=== PATIENT | male | born 1935 | race Caucasian/White ===

== ENCOUNTER → 2017-10-12 15:56 | Outpatient (CLI) | payer MEDICARE, OTHER, SELFPAY ==
[2017-10-12 17:29] LABS: Absolute Lymphocyte Count 1.19 X10^3/ul (0.83-4.51); Absolute Neutrophil Count 5.9 X10^3/uL (2.0-7.7); Basophil# 0.07 X10^3/uL; Basophil% 0.9 % (0-1); Eosinophil# 0.27 X10^3/uL; Eosinophils% 3.3 % (0-5); Hematocrit 47.5 % (40-54); Hemoglobin 15.6 g/dl (13.0-16.5); Lymphocyte # 1.19 X10^3/ul (4.0); Lymphocyte % 14.8 % (19-41); Mean Corp Hgb Conc 32.8 g/gl (32-36); Mean Corpuscular Hgb 31.3 pg (27.0-32.0); Mean Corpuscular Volume 95.4 fL (80-94); Mean Platelet Vol. 13.1 fl (6.2-12.0); Monocyte# 0.56 X10^3/uL; Monocyte% 6.9 % (0-10); Neutrophil # 5.94 X10^3/uL (2.7-7.7); Neutrophil % 73.7 % (47-70); Platelet Count 178 K/mm3 (150-450); RBC Distribution Width CV 15.2 % (11.6-14.6); Red Blood Count 4.98 M/mm3 (4.6-6.2); White Blood Count 8.1 K/mm3 (4.4-11.0)
[2017-10-12 17:44] LABS: POSITIVE COUNT NO; POSITIVE DIFFERENTIAL NO; POSITIVE MORPHOLOGY NO
[2017-10-12 18:04] LABS: BUN 24 mg/dL (7-18); Creatinine, Serum 0.95 mg/dL (0.70-1.30); Glucose 84 mg/dL (74-106)
[2017-10-12 18:05] LABS: ALB/GLOB Ratio 1.2 RATIO (0.9-2.4); AST(SGOT) 18 U/L (15-37); Alanine Aminotransfer ALT/SGPT 17 U/L (16-61); Albumin, Serum 3.8 g/dL (3.2-5.0); Alkaline Phosphatase 74 U/L (45-117); Anion Gap 7 (5-15); BUN/Creat Ratio 25.4 RATIO (10-20); Calcium,Total 8.6 mg/dL (8.5-10.1); Chloride 104 mmol/L (98-107); EST Glomerular Filtration Rate 81 mL/min (>60); Est Glom Filt Rate - Afr Amer 98 mL/min (>60); Globulin 3.2 g/dL (2.2-4.2); Potassium 4.2 mmol/L (3.5-5.1); Sodium Level 139 mmol/L (136-145); Thyroid Stim Hormone (TSH) 0.92 uIU/mL (0.358-3.74)
[2017-10-13 11:21] LABS: Vitamin D,25 Hydroxy 26.9 ng/mL (29.95-100.01)
== END ==
PROVIDERS: Family Provider Family Medicine Geriatric Medicine; PCP Family Medicine Geriatric Medicine; Visit Provider Family Medicine Geriatric Medicine
DX: I10 Essential (primary) hypertension (principal); E23.6 Other disorders of pituitary gland; E55.9 Vitamin D deficiency, unspecified
CPT/HCPCS: 36415; 80053; 82306; 84403; 84443; 85025

== ENCOUNTER → 2017-12-15 13:51 | Outpatient (CLI) | payer MEDICARE, OTHER, SELFPAY ==
--- NOTE | 2017-12-15 14:12 | RAD_ITS ---
STUDY: X-RAY CHEST REASON FOR EXAM: Male, 82 years old. Fever. TECHNIQUE: PA and lateral views of the chest. COMPARISON: Comparison is made with prior study dated March 27, 2017. FINDINGS: A right-sided dual-chamber pacemaker is seen. There is evidence of elevation of the right hemidiaphragm with the infiltration in the right middle lobe. The left lung is clear. There is no demonstrated pleural abnormality. Normal size heart. Normal mediastinum and agapito. Normal visualized pulmonary arteries. There is atherosclerotic tortuosity of the aortic arch and descending thoracic aorta. Normal visualized thoracic spine. Normal visualized ribs, clavicles, and shoulders. There is no demonstrated abnormality of the visualized soft tissue structures of the upper abdomen. RAD/Chest PA and Lateral IMPRESSION: Right middle lobe infiltrate. Electronically Signed: Xander Flynn MD at 14:43 EDT Tel [phone], Service support ,
--- NOTE | 2017-12-15 14:20 | RAD_ITS ---
STUDY: X-RAY - ABDOMEN/PELVIS REASON FOR EXAM: Male, 82 years old. Constipation. TECHNIQUE: Single AP view of the abdomen / pelvis. COMPARISON: None. FINDINGS: There is a moderate amount of colonic fecal material. There is a 1.6 cm x 1.3 cm calculus in the lower pole calyx of the left kidney. Normal soft tissue structures. Levoscoliosis of the lumbar spine. RAD/Abdomen Single View IMPRESSION: Moderate amount of fecal material is seen in the colon. 1.6 cm x 1.3 cm calculus in the lower pole calyx of the left kidney. Electronically Signed: Xander Flynn MD at 14:39 EDT Tel [phone], Service support ,
[2017-12-15 14:57] LABS: Absolute Lymphocyte Count 0.83 X10^3/ul (0.83-4.51); Absolute Neutrophil Count 16.9 X10^3/uL (2.0-7.7); Basophil# 0.02 X10^3/uL; Basophil% 0.1 % (0-1); Eosinophil# 0.06 X10^3/uL; Eosinophils% 0.3 % (0-5); Hematocrit 47.3 % (40-54); Hemoglobin 15.6 g/dl (13.0-16.5); Lymphocyte # 0.83 X10^3/ul (4.0); Lymphocyte % 4.6 % (19-41); Mean Corpuscular Hgb 31.1 pg (27.0-32.0); Mean Corpuscular Volume 94.4 fL (80-94); Mean Platelet Vol. 12.9 fl (6.2-12.0); Monocyte# 0.26 X10^3/uL; Monocyte% 1.4 % (0-10); Neutrophil # 16.92 X10^3/uL (2.7-7.7); Neutrophil % 93.4 % (47-70); POSITIVE COUNT NO; POSITIVE DIFFERENTIAL NO; POSITIVE MORPHOLOGY NO; Platelet Count 157 K/mm3 (150-450); RBC Distribution Width CV 13.7 % (11.6-14.6); RBC Distribution Width SD 46.9 fl (35.1-43.9); Red Blood Count 5.01 M/mm3 (4.6-6.2); White Blood Count 18.1 K/mm3 (4.4-11.0)
[2017-12-15 15:37] LABS: Anion Gap 7 (5-15); BUN 21 mg/dL (7-18); Calcium,Total 8.5 mg/dL (8.5-10.1); Chloride 107 mmol/L (98-107); Creatinine, Serum 1.05 mg/dL (0.70-1.30); EST Glomerular Filtration Rate 72 mL/min (>60); Est Glom Filt Rate - Afr Amer 87 mL/min (>60); Glucose 106 mg/dL (74-106); Potassium 4.2 mmol/L (3.5-5.1); Sodium Level 139 mmol/L (136-145)
== END ==
PROVIDERS: Family Provider Family Medicine Geriatric Medicine; PCP Family Medicine Geriatric Medicine; Visit Provider Family Medicine Geriatric Medicine
DX: R50.9 Fever, unspecified (principal); E86.0 Dehydration; K59.00 Constipation, unspecified
CPT/HCPCS: 36415; 71046; 74018; 80048; 85025; 87040; 87633

== ENCOUNTER → 2018-03-08 10:11 | Outpatient (CLI) | payer MEDICARE, OTHER, SELFPAY ==
[2018-03-08 10:51] LABS: Absolute Lymphocyte Count 1.36 X10^3/ul (0.83-4.51); Absolute Neutrophil Count 8.2 X10^3/uL (2.0-7.7); Basophil# 0.03 X10^3/uL; Basophil% 0.3 % (0-1); Eosinophil# 0.15 X10^3/uL; Eosinophils% 1.4 % (0-5); Hematocrit 47.5 % (40-54); Hemoglobin 15.6 g/dl (13.0-16.5); Lymphocyte # 1.36 X10^3/ul (4.0); Lymphocyte % 12.6 % (19-41); Mean Corp Hgb Conc 32.8 g/gl (32-36); Mean Corpuscular Volume 97.3 fL (80-94); Mean Platelet Vol. 12.6 fl (6.2-12.0); Monocyte% 8.3 % (0-10); Neutrophil % 75.9 % (47-70); Platelet Count 205 K/mm3 (150-450); RBC Distribution Width CV 16.9 % (11.6-14.6); RBC Distribution Width SD 59.2 fl (35.1-43.9); Red Blood Count 4.88 M/mm3 (4.6-6.2); White Blood Count 10.8 K/mm3 (4.4-11.0)
[2018-03-08 10:58] LABS: POSITIVE COUNT NO; POSITIVE DIFFERENTIAL NO; POSITIVE MORPHOLOGY NO
[2018-03-08 11:26] LABS: Anion Gap 6 (5-15); BUN 19 mg/dL (7-18); BUN/Creat Ratio 16.5 RATIO (10-20); Calcium,Total 9.3 mg/dL (8.5-10.1); Chloride 101 mmol/L (98-107); Creatinine, Serum 1.15 mg/dL (0.70-1.30); EST Glomerular Filtration Rate 65 mL/min (>60); Est Glom Filt Rate - Afr Amer 78 mL/min (>60); Glucose 112 mg/dL (74-106); Sodium Level 141 mmol/L (136-145); Thyroid Stim Hormone (TSH) 0.98 uIU/mL (0.358-3.74)
== END ==
PROVIDERS: Family Provider Family Medicine Geriatric Medicine; PCP Family Medicine Geriatric Medicine; Visit Provider Internal Medicine Cardiovascular Disease
DX: R53.83 Other fatigue (principal)
CPT/HCPCS: 36415; 80048; 84443; 85025

== ENCOUNTER → 2018-04-10 09:59 | Outpatient (CLI) | payer MEDICARE, OTHER, SELFPAY ==
[2018-04-10 12:32] LABS: Absolute Lymphocyte Count 1.12 X10^3/ul (0.83-4.51); Absolute Neutrophil Count 5.4 X10^3/uL (2.0-7.7); Basophil# 0.03 X10^3/uL; Basophil% 0.4 % (0-1); Eosinophil# 0.11 X10^3/uL; Eosinophils% 1.5 % (0-5); Hematocrit 46.6 % (40-54); Hemoglobin 15.5 g/dl (13.0-16.5); Lymphocyte # 1.12 X10^3/ul (4.0); Lymphocyte % 15.2 % (19-41); Mean Corp Hgb Conc 33.3 g/gl (32-36); Mean Corpuscular Hgb 32.5 pg (27.0-32.0); Mean Corpuscular Volume 97.7 fL (80-94); Mean Platelet Vol. 12.8 fl (6.2-12.0); Monocyte# 0.61 X10^3/uL; Monocyte% 8.3 % (0-10); Neutrophil # 5.43 X10^3/uL (2.7-7.7); Neutrophil % 73.7 % (47-70); Platelet Count 173 K/mm3 (150-450); RBC Distribution Width CV 15.4 % (11.6-14.6); RBC Distribution Width SD 54.5 fl (35.1-43.9); Red Blood Count 4.77 M/mm3 (4.6-6.2); White Blood Count 7.4 K/mm3 (4.4-11.0)
[2018-04-10 12:44] LABS: POSITIVE COUNT NO; POSITIVE DIFFERENTIAL NO; POSITIVE MORPHOLOGY NO
[2018-04-10 12:54] LABS: ALB/GLOB Ratio 1.2 RATIO (0.9-2.4); AST(SGOT) 19 U/L (15-37); Alanine Aminotransfer ALT/SGPT 25 U/L (16-61); Albumin, Serum 3.7 g/dL (3.2-5.0); Alkaline Phosphatase 57 U/L (45-117); Anion Gap 6 (5-15); BUN 23 mg/dL (7-18); BUN/Creat Ratio 18.9 RATIO (10-20); Chloride 103 mmol/L (98-107); Creatinine, Serum 1.22 mg/dL (0.70-1.30); EST Glomerular Filtration Rate 60 mL/min (>60); Est Glom Filt Rate - Afr Amer 73 mL/min (>60); Globulin 3.2 g/dL (2.2-4.2); Glucose 114 mg/dL (74-106); Potassium 4.1 mmol/L (3.5-5.1); Protein, Total 6.9 g/dL (6.4-8.2); Sodium Level 139 mmol/L (136-145)
[2018-04-11 08:40] LABS: Vitamin D,25 Hydroxy 35.1 ng/mL (29.95-100.01)
== END ==
PROVIDERS: Family Provider Family Medicine Geriatric Medicine; PCP Family Medicine Geriatric Medicine; Visit Provider Family Medicine Geriatric Medicine
DX: E23.6 Other disorders of pituitary gland (principal); I10 Essential (primary) hypertension; E55.9 Vitamin D deficiency, unspecified
CPT/HCPCS: 36415; 80053; 82306; 84403; 84443; 85025

== ENCOUNTER → 2018-04-19 07:02 | Outpatient (CLI) | payer MEDICARE, OTHER, SELFPAY ==
--- NOTE | 2018-04-19 08:08 | ECHOCSONC_ITS ---
Reason For Study: SOB Procedure This was a 2D Doppler, Color Flow transthoracic echocardiogram. Exam performed in department. Left Ventricle Normal LV size. The estimated ejection fraction is 20 %. Severe segmental systolic dysfunction (see wall motion). Stage 1 diastolic dysfunction. There are regional wall motion abnormalities as specified. Anterio-Basal: Hypokinetic. Lateral-Basal: Normal. Posterior-Basal: Hypokinetic. [place] : Dyskinetic. Mid-Inferior: Akinetic. Basal inferoseptal: Akinetic. Mid-Anterior : Akinetic. Right Ventricle Normal RV size. ICD or pacer leads identified within the right ventricle. Normal systolic function. Atria Normal left atrium. Normal right atrium. Mitral Valve Normal mitral valve. Mild (1+) eccentric mitral valve insufficiency. Tricuspid Valve Normal tricuspid valve. Mild (1+) tricuspid valve insufficiency. Pulmonary artery systolic pressure is 31 mmHg. Aortic Valve Trisinus/trileaflet aortic valve. Mild diffuse aortic valve thickening. Mild (1+) eccentric aortic valve insufficiency. Pulmonic Valve Normal pulmonic valve. Great Vessels Normal aortic root. The pulmonary artery is normal size. Normal inferior vena cava. Pericardium/Pleural No pericardial effusion. Medication 22 gauge I.V. with prn adaptor inserted into right arm. Diluted definity 4ml given slow IV push to enhance endocardial definition. MMode/2D Measurements & Calculations LVIDd: 4.9 cm IVSd: 0.95 cm Ao root diam: 3.3 cm LVIDs: 4.5 cm LVPWd: 0.87 cm LA dimension: 3.6 cm RVDd: 3.2 cm FS: 8.8 % LAV(MOD-bp): 45.8 ml LVAd ap4: 36.2 cm2 SV(MOD-sp4): 25.9 ml LAV(MOD-bp) Indexed: 23.3 ml/m2 EDV(MOD-sp4): 119.7 ml LAV(MOD-sp2): 43.1 ml EDV(sp4-el): 121.6 ml LAV(MOD-sp4): 39.3 ml LVAs ap4: 31.4 cm2 ESV(MOD-sp4): 93.8 ml ESV(sp4-el): 99.2 ml EF(MOD-sp4): 21.6 % EF(sp4-el): 18.5 % SV(sp4-el): 22.4 ml LA A4 area: 15.1 cm2 RA A4 area: 9.8 cm2 Time Measurements MV dec time: 0.20 sec Doppler Measurements & Calculations MV E max eben: 31.9 cm/sec Lat Peak E' Eben: 8.1 cm/sec Med Peak E' Eben: 3.6 cm/sec MV A max eben: 94.7 cm/sec E/E' lat: 4.0 E/E' med: 8.8 MV E/A: 0.34 Ao V2 max: 98.1 cm/sec LV V1 max: 106.4 cm/sec PA V2 max: 112.8 cm/sec Ao max P.9 mmHg LV V1 max P.5 mmHg TR max eben: 264.5 cm/sec TR max P.0 mmHg Interpretation Summary Normal LV size. The estimated ejection fraction is 20 %. Severe segmental systolic dysfunction (see wall motion). Stage 1 diastolic dysfunction. Contrast injection was performed. The study was technically difficult. Compared to prior study, there is no significant change. Ordering Physician: Jacques Pena Referring Physician: Jacques Pena Chi Performed By: Maday Dunn RDCS
--- NOTE | 2018-04-20 12:19 | PFT ---
INTRODUCTION: The patient is an 83-year-old male that presents for pulmonary function testing secondary to a diagnosis of shortness of breath. Respiratory therapy reports good patient effort. Bronchodilators were used during testing. INTERPRETATION: Forced expiration spirometry demonstrates no evidence of a large airways obstructive ventilatory defect. There was no significant response to aerosolized bronchodilators. Spirograms are of good quality and plateau normally. The respiratory flow volume loop appears normal. Body plethysmography was performed and reveals lung volumes to be within normal limits. Diffusing capacity by single breath CO is within normal limits at 99% of predicted. IMPRESSION: These pulmonary function studies are grossly within normal limits. There are no previous pulmonary function studies available for comparison.
== END ==
PROVIDERS: Family Provider Family Medicine Geriatric Medicine; PCP Family Medicine Geriatric Medicine; Visit Provider Family Medicine Geriatric Medicine
DX: R06.02 Shortness of breath (principal)
CPT/HCPCS: 0399T; 93306; 94060; 94726; 94729; Q9957; A4216; C8929

== ENCOUNTER 2018-04-20 14:06 | Inpatient (IN) | payer MEDICARE, OTHER, SELFPAY ==
[2018-04-20] VITALS (13 sets, daily range): BP systolic 127–164; BP diastolic 69–88; PULSE 60–80; RESP 16–27; TEMP 36.5–37.1; O2SAT 94–100; BMI 24.8; BMI 25.7
--- NOTE | 2018-04-20 14:19 | RAD_ITS ---
STUDY: X-RAY CHEST REASON FOR EXAM: Male, 83 years old. LEFT UPPER CHEST PAIN TECHNIQUE: Single AP portable view of the chest. COMPARISON: December 15, 2017 FINDINGS: There is stable elevation of the right hemidiaphragm. There is a new small left pleural effusion. Normal size heart. Normal mediastinum and agapito. Normal visualized pulmonary arteries. Normal visualized aortic arch and descending thoracic aorta. Normal visualized thoracic spine. Normal visualized ribs, clavicles, and shoulders. There is no demonstrated abnormality of the visualized soft tissue structures of the upper abdomen. RAD/Chest 1 View (Portable) IMPRESSION: There is a new small left pleural effusion. Electronically Signed: Tereza Quiles MD at 14:58 EDT , Service support ,
--- NOTE | 2018-04-20 14:19 | EKG12_ITS ---
Test Reason : CP Blood Pressure : / mmHG Vent. Rate : 074 BPM Atrial Rate : 074 BPM P-R Int : 154 ms QRS Dur : 114 ms QT Int : 420 ms P-R-T Axes : 012 -41 107 degrees QTc Int : 466 ms Normal sinus rhythm Left axis deviation Moderate voltage criteria for LVH, may be normal variant Cannot rule out Septal infarct , age undetermined Possible lateral infarct, age undetermined Abnormal ECG Confirmed by JENNIFER ROCHA, JESSE ([id number]), assignment desk editor LAVINIA WEST ([id number]) on 04/23/2018 3:10:44 PM Referred By: Confirmed By:JESSE RODRIGUEZ MD
[2018-04-20 14:32] LABS: Absolute Lymphocyte Count 1.25 X10^3/ul (0.83-4.51); Absolute Neutrophil Count 6.8 X10^3/uL (2.0-7.7); Basophil# 0.04 X10^3/uL; Basophil% 0.5 % (0-1); Eosinophil# 0.07 X10^3/uL; Eosinophils% 0.8 % (0-5); Hematocrit 45.5 % (40-54); Hemoglobin 14.9 g/dl (13.0-16.5); Lymphocyte # 1.25 X10^3/ul (4.0); Lymphocyte % 14.3 % (19-41); Mean Corp Hgb Conc 32.7 g/gl (32-36); Mean Corpuscular Hgb 31.4 pg (27.0-32.0); Mean Platelet Vol. 13.2 fl (6.2-12.0); Monocyte# 0.58 X10^3/uL; Monocyte% 6.6 % (0-10); Neutrophil % 77.5 % (47-70); Platelet Count 192 K/mm3 (150-450); RBC Distribution Width CV 14.2 % (11.6-14.6); Red Blood Count 4.74 M/mm3 (4.6-6.2); White Blood Count 8.8 K/mm3 (4.4-11.0)
--- NOTE | 2018-04-20 14:36 | ED.DCSUM_ITS ---
- ER Visit Summary Date of Service: 04/20/18 Chief Complaint: Chest pain History of Present Illness: The patient is a 83 M presents to the emergency department with rather significant chest pain. The patient has a long-standing history of coronary vascular disease. He follows with Dr. Lawrence. He does have a defibrillator in place. He has 5 stents. He states over the past 2 weeks, he has been having exertional chest pain. He states that today, he was lifting a table in his barn. He states about 30 minutes later, he began have a crushing pain across his left chest into his left arm. He felt short of breath. He took one nitro with little relief. He states the pain comes in waves but is never fully relieved. He denies any fevers or chills. He does admit to some nausea. Physical Examination: Vital signs reviewed General: Well-nourished, well-developed Head: Normocephalic, atraumatic Eyes: Pupils equal and reactive, extraocular muscles intact Neck, supple, no lymphadenopathy Heart: Regular rate and rhythm Respiratory: No distress, clear bilaterally Abdomen: Soft, nontender, nondistended, no peritoneal signs Back: Nontender Extremities: Nontender, no edema, no cords Skin: Normal color no rash Neuro: Alert and oriented, no focal or lateralizing deficits Test Results: [] Emergency Department Course and Treatment: The patient presents with chest pain that is concerning for acute coronary syndrome. EKG was obtained which did not show any acute ischemic change compared to prior. Patient was given 2 sublingual nitro and had total resolution of his pain. His repeat EKG shows no progression. The patient did have a 6 beat run of ventricular tachycardia that was nonsustained. His cardiac enzymes are indeterminate, but elevated. I do suspect that the patient likely had an STEMI. I did discuss the patient with Dr. Lawrence given his age and significant cardiac risk factors along with his story. He was treated with therapeutic Lovenox. He will be admitted to the PCU for likely cardiac intervention. Treatment Plan: [] Disposition: Admission Impression: 1. Chest pain 2. Acute coronary syndrome This note was generated with [employer] dictation software. It may contain incorrect words, spelling, and punctuation that were not noted in review of the chart prior to signing ED Disposition - Plan for ED Patient: Chief Complaint: Chest Pain Referrals: Jacques Pena Chi, MD [Primary Care Provider] -
[2018-04-20 14:38] LABS: POSITIVE COUNT NO; POSITIVE DIFFERENTIAL NO; POSITIVE MORPHOLOGY NO
[2018-04-20 14:55] LABS: BUN 22 mg/dL (7-18); Creatinine, Serum 1.18 mg/dL (0.70-1.30); Estimated Creatinine Clearance 49.84 ml/min; Glucose 130 mg/dL (74-106)
[2018-04-20 14:56] LABS: Anion Gap 9 (5-15); BUN/Creat Ratio 18.6 RATIO (10-20); Chloride 105 mmol/L (98-107); EST Glomerular Filtration Rate 63 mL/min (>60); Est Glom Filt Rate - Afr Amer 76 mL/min (>60); Potassium 4.1 mmol/L (3.5-5.1); Sodium Level 142 mmol/L (136-145)
[2018-04-20] MEDS: Enoxaparin 80 MG/0.8 ML Syringe SC (15:18)
[2018-04-20] MEDS: Aspirin 81 MG TAB.CHEW 324 MG PO (15:18)
--- NOTE | 2018-04-20 15:32 | CM.ED ---
Social Work Note Face to face with pt and his , Mary. Introduced self and role at [facility]. The pt is A&Ox4. Reports to live with his in a one-story home with 2 [address]ASSID[address] and handrails. No DME used at baseline. Does have a lift chair for the basement that he uses when he has been standing and working for hours at a time. Does not anticipate any DME needs at discharge. Confirm that his PCP is Dr. Pena. He also sees Dr. Crum, Chiropractor. His preferred pharmacy is [facility] in [place]. Claims to have advanced directives and identifies his , Mary, as the HCPOA. Mary states she will bring advanced directives in if she remembers. No further needs identified at this time, and pt and spouse made aware that RN CM is available on unit if needed. Plan: Home Amairani Gómez, GENERAL INTERNIST, CONFIGURATION MANAGEMENT ANALYST
--- NOTE | 2018-04-20 16:25 | NURSING ---
PCU CP, [facility]
--- NOTE | 2018-04-20 16:31 | PCM.HP.STD ---
Problem List (1) DDD (degenerative disc disease), lumbar Status: Chronic (2) Segmental and somatic dysfunction of pelvic region Status: Chronic (3) Segmental and somatic dysfunction of thoracic region Status: Chronic (4) Segmental and somatic dysfunction of lumbar region Status: Chronic (5) History of electrophysiologic study Status: Chronic Comment: 09/11/2002 @ [facility] per Dr. Holt; and 05/19/[address] Madrigal [facility] (6) History of left heart catheterization Status: Chronic Comment: 03/05/2002;08/20/2002; 04/2004; May 2010; 11/18/2014 (7) Old myocardial infarction Status: Chronic (8) Stented coronary artery Status: Chronic Comment: Cutting balloon angiplasty of posterior ventricular branch of RCA and stenting of LAD 03/05/2002 @ [facility] per Dr. Murillo. DOUGLAS X 2 to proximal, and Mid to distal RCA 11/18/[address] Le @ [facility] (9) Chronic systolic (congestive) heart failure Status: Chronic (10) Atherosclerotic heart disease of [place] coronary artery with other forms of angina pectoris Status: Chronic Comment: Cutting balloon angiplasty of posterior ventricular branch of RCA and stenting of LAD 03/05/2002 @ [facility] per Dr. Murillo. DOUGLAS X 2 to proximal, and Mid to distal RCA 11/18/[address] Le @ [facility] (11) Nonsustained ventricular tachycardia Status: Chronic (12) Palpitations Status: Chronic (13) Polycythemia Status: Chronic (14) Chest pain Status: Acute (15) AICD (automatic cardioverter/defibrillator) present Status: Chronic Comment: Implanted 05/17/2010 (16) GERD (gastroesophageal reflux disease) Status: Chronic (17) Hiatal hernia Status: Chronic (18) Cardiomyopathy, ischemic Status: Chronic (19) HLD (hyperlipidemia) Status: Chronic (20) HTN (hypertension) Status: Chronic (21) Carotid artery disease Status: Chronic History of Present Illness Date of Admission: 04/20/18 Chief Complaint: Chest pain. The patient is a 83 year old M who presents to the emergency room due to chest pain. Patient states he was moving tables when he developed left-sided chest pain which radiated to the left arm. He states he rested, hoping pain would resolve however pain worsened. He describes associated dizziness/lightheadedness, diaphoresis and shortness of breath. Patient also notes his left arm became numb with the pain. This has since resolved. Chest pain continued until arriving in the emergency room and receiving nitro. Patient states pain improved and is now beginning to return. Patient states he has had increased dyspnea on exertion with associated chest discomfort for a few months now. His pain has not been as severe as episode today. He states he is normally active without symptoms prior to the last few months. Patient follows with Dr. Lawrence. He saw his primary care physician for ongoing dyspnea on exertion who ordered an echocardiogram and pulmonary function test which were completed yesterday. Echocardiogram demonstrated an ejection fraction of 20%, stage I diastolic dysfunction, severe segmental systolic dysfunction. Compared to prior study there was no significant change. He has a past medical history of CAD status post stents, ischemic cardiomyopathy, chronic systolic CHF, status post AICD, hypertension, hyperlipidemia, carotid artery disease, hiatal hernia, GERD, degenerative disc disease. Past Medical History Past Medical History (Chronic Problems): Chronic Problems (Last Reviewed 04/12/18 @ 11:49 by Jennifer Koehler) DDD (degenerative disc disease), lumbar (Chronic) Segmental and somatic dysfunction of pelvic region (Chronic) Segmental and somatic dysfunction of thoracic region (Chronic) Segmental and somatic dysfunction of lumbar region (Chronic) History of electrophysiologic study (Chronic) 09/11/2002 @ [facility] per Dr. Holt; and 05/19/[address] Madrigal [facility] History of left heart catheterization (Chronic) 03/05/2002;08/20/2002; 04/2004; May 2010; 11/18/2014 Old myocardial infarction (Chronic) Stented coronary artery (Chronic) Cutting balloon angiplasty of posterior ventricular branch of RCA and stenting of LAD 03/05/2002 @ [facility] per Dr. Murillo. DOUGLAS X 2 to proximal, and Mid to distal RCA 11/18/[address] Le @ [facility] Chronic systolic (congestive) heart failure (Chronic) Atherosclerotic heart disease of [place] coronary artery with other forms of angina pectoris (Chronic) Cutting balloon angiplasty of posterior ventricular branch of RCA and stenting of LAD 03/05/2002 @ [facility] per Dr. Murillo. DOUGLAS X 2 to proximal, and Mid to distal RCA 11/18/[address] Le @ [facility] Nonsustained ventricular tachycardia (Chronic) Palpitations (Chronic) Polycythemia (Chronic) AICD (automatic cardioverter/defibrillator) present (Chronic) Implanted 05/17/2010 GERD (gastroesophageal reflux disease) (Chronic) Hiatal hernia (Chronic) Cardiomyopathy, ischemic (Chronic) HLD (hyperlipidemia) (Chronic) HTN (hypertension) (Chronic) Carotid artery disease (Chronic) Medical History: Medical History (Last Reviewed 04/12/18 @ 11:49 by Jennifer Koehler) DDD (degenerative disc disease), lumbar (Chronic) M51.36 Old myocardial infarction (Chronic) I25.2 Chronic systolic (congestive) heart failure (Chronic) I50.22 Atherosclerotic heart disease of [place] coronary artery with other forms of angina pectoris (Chronic) I25.118 Cutting balloon angiplasty of posterior ventricular branch of RCA and stenting of LAD 03/05/2002 @ [facility] per Dr. Murillo. DOUGLAS X 2 to proximal, and Mid to distal RCA 11/18/[address] Le @ [facility] Nonsustained ventricular tachycardia (Chronic) I47.2 Palpitations (Chronic) R00.2 Polycythemia (Chronic) D75.1 Chest pain (Chronic) R07.9 GERD (gastroesophageal reflux disease) (Chronic) K21.9 Hiatal hernia (Chronic) K44.9 Cardiomyopathy, ischemic (Chronic) I25.5 HLD (hyperlipidemia) (Chronic) E78.5 HTN (hypertension) (Chronic) I10 Carotid artery disease (Chronic) I77.9 Allergies hydrochlorothiazide Allergy (Severe, Verified 03/08/18 09:17) Severe itching rash ranolazine [From Ranexa] Adverse Reaction (Severe, Verified 03/08/18 09:17) Rash omeprazole Adverse Reaction (Verified 03/08/18 09:17) Unknown Phenothiazines Adverse Reaction (Verified 03/08/18 09:17) Unknown PHENEGRANZOLE Adverse Reaction (Uncoded 03/27/17 04:22) Unknown Home Medications: Ambulatory Orders Medication Instructions Recorded Aspirin E.C. [Ecotrin] 81 mg PO DAILY@0800 07/11/13 Folic Acid/Vit Bcomp,C 400 mcg PO DAILY 07/11/13 [E-Dcujjlb-Dqv C Time Rel Tab] Multivitamins,Ther W-Minerals 1 tab PO DAILY 11/03/14 [Multivitamin With Minerals] Pantoprazole Sodium [Protonix] 40 mg PO DAILY 10/29/16 Fluticasone Propionate [Flovent 50 mcg IH BID 03/27/17 Diskus] Sotalol Hydrochloride [Betapace 80 mg PO BID #60 tab 03/29/17 (Beta Dmitry)] nitroglycerin 0.4 mg sublingual 0.4 mg SUBLINGUAL Q5-15M PRN 08/18/17 tablet clopidogrel 75 mg tablet 75 mg PO DAILY #90 tab 10/12/17 losartan 25 mg tablet 25 mg PO DAILY #90 tab 12/01/17 Surgical History: Surgical History (Last Reviewed 04/20/18 @ 16:39 by CHELSI Mueller) Stented coronary artery (Chronic) Z95.5 Cutting balloon angiplasty of posterior ventricular branch of RCA and stenting of LAD 03/05/2002 @ [facility] per Dr. Murillo. DOUGLAS X 2 to proximal, and Mid to distal RCA 11/18/[address] Le @ [facility] AICD (automatic cardioverter/defibrillator) present (Chronic) Z95.810 Implanted 05/17/2010 Surgical History: angioplasty, cataract, herniorrhaphy, TURP, - - AICD placement Lives: Spouse/ Significant Other Smoking Status: Never smoker Alcohol: None Drugs: None - *Family History Maternal Family History: Family History (Last Reviewed 04/20/18 @ 16:39 by CHELSI Mueller) Father CAD (coronary artery disease) Myocardial infarction Sudden cardiac Mother Diabetes History Items: Heart Disease Paternal Family History: Family History (Last Reviewed 04/20/18 @ 16:39 by CHELSI Mueller) Father CAD (coronary artery disease) Myocardial infarction Sudden cardiac Mother Diabetes History Items: Heart Disease Review of Systems Constitutional: Denies: Chills, Fever, Weight Change HEENT: Denies: Head Aches, Sinus Congestion, Sinus Drainage Cardiovascular: Reports: Chest Pain, Claudication, Light Headedness. Denies: Edema, Palpitations, Syncope Respiratory: Reports: Shortness of breath upon exertion. Denies: Cough, Shortness of breath at rest, Sputum production Gastrointestinal: Denies: Abdominal Pain, Nausea, Vomiting Genitourinary: Denies: Dysuria Musculoskeletal: Denies: Joint Pain, Joint Tenderness Skin: Denies: Rash, Wounds Neurological: Denies: Numbness, Tingling, Focal weakness Psychiatric: Denies: Anxiety, Depression, Homicidal Ideations, Suicidal Ideations Hematologic/ Lymphatic: Denies: Easy Bruising, Easy Bleeding VTE Information - Inpt Only VTE Present on Admission: No VTE Mechan Device Prophylaxis: None VTE Pharm Prophylaxis ordered?: Yes - Physical Exam General: Alert, Oriented x3, Cooperative HEENT: Atraumatic, PERRLA, EOMI, Normocephalic Neck: Supple, No JVD, Negative Carotid Bruits Lungs: Clear to auscultation, Normal air movement, - - Right chest AICD Cardiovascular: Regular rate, Regular Rhythm, Normal S1, Normal S2, No murmurs Abdomen: Bowel Sounds Present, Soft, Non Tender, Non-Distended Extremities: No clubbing, No cyanosis, No edema, Capillary Refill Less than 3 Seconds Skin: No rashes, No breakdown Musculoskeletal: No Tenderness to Palpation of Joints or Extremities Neurological: Cranial nerves II-XII grossly intact Psych/Mental Status: Normal Affect, Appropriate Vital Signs Temp Pulse Resp BP Pulse Ox 97.7 F L 66 20 H 127/69 H 96 04/20/18 14:07 04/20/18 15:17 04/20/18 15:17 04/20/18 15:17 04/20/18 15:17 Oxygen Flow Rate (L/min) 2 Oxygen Delivery Method Room Air Weight: 173 lb Body Mass Index (BMI) 24.8 Laboratory Tests Past 24 Hrs 04/20/18 04/20/18 14:10 14:10 WBC 8.8 RBC 4.74 Hgb 14.9 Hct 45.5 MCV 96.0 H MCH 31.4 MCHC 32.7 RDW 14.2 RDW Differential 50.0 H Plt Count 192 MPV 13.2 H Immature Gran % (Auto) 0.300 Neut % (Auto) 77.5 H Lymph % (Auto) 14.3 L [place] % (Auto) 6.6 Eos % (Auto) 0.8 Baso % (Auto) 0.5 Absolute Neuts (auto) 6.8 Absolute Lymphs (auto) 1.25 Total Counted Not Reportable Sodium 142 Potassium 4.1 Chloride 105 Carbon Dioxide 28.0 Anion Gap 9 BUN 22 H Creatinine 1.18 Estim Creat Clear Calc 49.84 Est GFR (MDRD) Af Amer 76 Est GFR (MDRD) Non-Af 63 BUN/Creatinine Ratio 18.6 Glucose 130 H Calcium 9.0 Troponin I 0.417 H Assessment/Plan All Active Problems (Last Reviewed 04/12/18 @ 11:49 by Jennifer Koehler) Chest pain (Acute) ENTERITIS DUE SALMONELLA (Resolved) Pneumonia, community acquired (Resolved) 1. Unstable angina with indeterminate troponin, suspect NSTEMI/ACS-initial troponin 0.41. EKG without acute changes. Cardiology consulted. Anticipate cardiac catheterization. Trend enzymes. Repeat EKG in a.m. and with new onset chest pain. Nitro drip initiated in ER. Continue therapeutic Lovenox. Patient given aspirin 324 mg p.o. ?1 in ER. 2. Ventricular tachycardia-6 beat run. Monitor telemetry. Check magnesium. 3. CAD status post stent-continue aspirin, Plavix. Cardiology following as noted above. 4. Chronic systolic CHF-echocardiogram completed yesterday showed an EF of 20%, stage I diastolic dysfunction, no significant change compared to prior study. Continue losartan, sotalol regimen. No evidence of acute CHF exacerbation. 5. Ischemic cardiomyopathy status post AICD 6. Hypertension-stable, continue home regimen of losartan, sotalol. 7. Hyperlipidemia-not on statin. Check fasting lipid panel in a.m. 8. Carotid artery disease-continue aspirin, Plavix. 9. GERD- continue PPI. 10. Hiatal hernia 11. DDD- Tylenol PRN for pain. DVT prophylaxis-therapeutic Lovenox subcu. This patient was seen by CHELSI Mueller under the supervision of Dr. Colunga.
--- NOTE | 2018-04-20 16:39 | HP.PCM_ITS ---
Problem List (1) DDD (degenerative disc disease), lumbar Status: Chronic (2) Segmental and somatic dysfunction of pelvic region Status: Chronic (3) Segmental and somatic dysfunction of thoracic region Status: Chronic (4) Segmental and somatic dysfunction of lumbar region Status: Chronic (5) History of electrophysiologic study Status: Chronic Comment: 09/11/2002 @ [facility] per Dr. Holt; and 05/19/[address] Madrigal [facility] (6) History of left heart catheterization Status: Chronic Comment: 03/05/2002;08/20/2002; 04/2004; May 2010; 11/18/2014 (7) Old myocardial infarction Status: Chronic (8) Stented coronary artery Status: Chronic Comment: Cutting balloon angiplasty of posterior ventricular branch of RCA and stenting of LAD 03/05/2002 @ [facility] per Dr. Murillo. DOUGLAS X 2 to proximal, and Mid to distal RCA 11/18/[address] Le @ [facility] (9) Chronic systolic (congestive) heart failure Status: Chronic (10) Atherosclerotic heart disease of [place] coronary artery with other forms of angina pectoris Status: Chronic Comment: Cutting balloon angiplasty of posterior ventricular branch of RCA and stenting of LAD 03/05/2002 @ [facility] per Dr. Murillo. DOUGLAS X 2 to proximal, and Mid to distal RCA 11/18/[address] Le @ [facility] (11) Nonsustained ventricular tachycardia Status: Chronic (12) Palpitations Status: Chronic (13) Polycythemia Status: Chronic (14) Chest pain Status: Acute (15) AICD (automatic cardioverter/defibrillator) present Status: Chronic Comment: Implanted 05/17/2010 (16) GERD (gastroesophageal reflux disease) Status: Chronic (17) Hiatal hernia Status: Chronic (18) Cardiomyopathy, ischemic Status: Chronic (19) HLD (hyperlipidemia) Status: Chronic (20) HTN (hypertension) Status: Chronic (21) Carotid artery disease Status: Chronic History of Present Illness Date of Admission: 04/20/18 Chief Complaint: Chest pain. The patient is a 83 year old M who presents to the emergency room due to chest pain. Patient states he was moving tables when he developed left-sided chest pain which radiated to the left arm. He states he rested, hoping pain would resolve however pain worsened. He describes associated dizziness/lightheadedness , diaphoresis and shortness of breath. Patient also notes his left arm became numb with the pain. This has since resolved. Chest pain continued until arriving in the emergency room and receiving nitro. Patient states pain improved and is now beginning to return. Patient states he has had increased dyspnea on exertion with associated chest discomfort for a few months now. His pain has not been as severe as episode today. He states he is normally active without symptoms prior to the last few months. Patient follows with Dr. Lawrence. He saw his primary care physician for ongoing dyspnea on exertion who ordered an echocardiogram and pulmonary function test which were completed yesterday. Echocardiogram demonstrated an ejection fraction of 20%, stage I diastolic dysfunction, severe segmental systolic dysfunction. Compared to prior study there was no significant change. He has a past medical history of CAD status post stents, ischemic cardiomyopathy, chronic systolic CHF, status post AICD, hypertension, hyperlipidemia, carotid artery disease, hiatal hernia, GERD, degenerative disc disease. Past Medical History Past Medical History (Chronic Problems): Chronic Problems (Last Reviewed 04/12/18 @ 11:49 by Jennifer Koehler) DDD (degenerative disc disease), lumbar (Chronic) Segmental and somatic dysfunction of pelvic region (Chronic) Segmental and somatic dysfunction of thoracic region (Chronic) Segmental and somatic dysfunction of lumbar region (Chronic) History of electrophysiologic study (Chronic) 09/11/2002 @ [facility] per Dr. Holt; and 05/19/[address] Madrigal [facility] History of left heart catheterization (Chronic) 03/05/2002;08/20/2002; 04/2004; May 2010; 11/18/2014 Old myocardial infarction (Chronic) Stented coronary artery (Chronic) Cutting balloon angiplasty of posterior ventricular branch of RCA and stenting of LAD 03/05/2002 @ [facility] per Dr. Murillo. DOUGLAS X 2 to proximal, and Mid to distal RCA 11/18/[address] Le @ [facility] Chronic systolic (congestive) heart failure (Chronic) Atherosclerotic heart disease of [place] coronary artery with other forms of angina pectoris (Chronic) Cutting balloon angiplasty of posterior ventricular branch of RCA and stenting of LAD 03/05/2002 @ [facility] per Dr. Murillo. DOUGLAS X 2 to proximal, and Mid to distal RCA 11/18/[address] Le @ [facility] Nonsustained ventricular tachycardia (Chronic) Palpitations (Chronic) Polycythemia (Chronic) AICD (automatic cardioverter/defibrillator) present (Chronic) Implanted 05/17/2010 GERD (gastroesophageal reflux disease) (Chronic) Hiatal hernia (Chronic) Cardiomyopathy, ischemic (Chronic) HLD (hyperlipidemia) (Chronic) HTN (hypertension) (Chronic) Carotid artery disease (Chronic) Medical History: Medical History (Last Reviewed 04/12/18 @ 11:49 by Jennifer Koehler) DDD (degenerative disc disease), lumbar (Chronic) M51.36 Old myocardial infarction (Chronic) I25.2 Chronic systolic (congestive) heart failure (Chronic) I50.22 Atherosclerotic heart disease of [place] coronary artery with other forms of angina pectoris (Chronic) I25.118 Cutting balloon angiplasty of posterior ventricular branch of RCA and stenting of LAD 03/05/2002 @ [facility] per Dr. Murillo. DOUGLAS X 2 to proximal, and Mid to distal RCA 11/18/[address] Le @ [facility] Nonsustained ventricular tachycardia (Chronic) I47.2 Palpitations (Chronic) R00.2 Polycythemia (Chronic) D75.1 Chest pain (Chronic) R07.9 GERD (gastroesophageal reflux disease) (Chronic) K21.9 Hiatal hernia (Chronic) K44.9 Cardiomyopathy, ischemic (Chronic) I25.5 HLD (hyperlipidemia) (Chronic) E78.5 HTN (hypertension) (Chronic) I10 Carotid artery disease (Chronic) I77.9 Allergies hydrochlorothiazide Allergy (Severe, Verified 03/08/18 09:17) Severe itching rash ranolazine [From Ranexa] Adverse Reaction (Severe, Verified 03/08/18 09:17) Rash omeprazole Adverse Reaction (Verified 03/08/18 09:17) Unknown Phenothiazines Adverse Reaction (Verified 03/08/18 09:17) Unknown PHENEGRANZOLE Adverse Reaction (Uncoded 03/27/17 04:22) Unknown Home Medications: Ambulatory Orders Medication Instructions Recorded Aspirin E.C. [Ecotrin] 81 mg PO DAILY@0800 07/11/13 Folic Acid/Vit Bcomp,C 400 mcg PO DAILY 07/11/13 [F-Byixiwv-Asv C Time Rel Tab] Multivitamins,Ther W-Minerals 1 tab PO DAILY 11/03/14 [Multivitamin With Minerals] Pantoprazole Sodium [Protonix] 40 mg PO DAILY 10/29/16 Fluticasone Propionate [Flovent 50 mcg IH BID 03/27/17 Diskus] Sotalol Hydrochloride [Betapace 80 mg PO BID #60 tab 03/29/17 (Beta Dmitry)] nitroglycerin 0.4 mg sublingual 0.4 mg SUBLINGUAL Q5-15M PRN 08/18/17 tablet clopidogrel 75 mg tablet 75 mg PO DAILY #90 tab 10/12/17 losartan 25 mg tablet 25 mg PO DAILY #90 tab 12/01/17 Surgical History: Surgical History (Last Reviewed 04/20/18 @ 16:39 by CHELSI Mueller) Stented coronary artery (Chronic) Z95.5 Cutting balloon angiplasty of posterior ventricular branch of RCA and stenting of LAD 03/05/2002 @ [facility] per Dr. Murillo. DOUGLAS X 2 to proximal, and Mid to distal RCA 11/18/[address] Le @ [facility] AICD (automatic cardioverter/defibrillator) present (Chronic) Z95.810 Implanted 05/17/2010 Surgical History: angioplasty, cataract, herniorrhaphy, TURP, - - AICD placement Lives: Spouse/ Significant Other Smoking Status: Never smoker Alcohol: None Drugs: None - *Family History Maternal Family History: Family History (Last Reviewed 04/20/18 @ 16:39 by CHELSI Mueller) Father CAD (coronary artery disease) Myocardial infarction Sudden cardiac Mother Diabetes History Items: Heart Disease Paternal Family History: Family History (Last Reviewed 04/20/18 @ 16:39 by CHELSI Mueller) Father CAD (coronary artery disease) Myocardial infarction Sudden cardiac Mother Diabetes History Items: Heart Disease Review of Systems Constitutional: Denies: Chills, Fever, Weight Change HEENT: Denies: Head Aches, Sinus Congestion, Sinus Drainage Cardiovascular: Reports: Chest Pain, Claudication, Light Headedness. Denies: Edema, Palpitations, Syncope Respiratory: Reports: Shortness of breath upon exertion. Denies: Cough, Shortness of breath at rest, Sputum production Gastrointestinal: Denies: Abdominal Pain, Nausea, Vomiting Genitourinary: Denies: Dysuria Musculoskeletal: Denies: Joint Pain, Joint Tenderness Skin: Denies: Rash, Wounds Neurological: Denies: Numbness, Tingling, Focal weakness Psychiatric: Denies: Anxiety, Depression, Homicidal Ideations, Suicidal Ideations Hematologic/ Lymphatic: Denies: Easy Bruising, Easy Bleeding VTE Information - Inpt Only VTE Present on Admission: No VTE Mechan Device Prophylaxis: None VTE Pharm Prophylaxis ordered?: Yes - Physical Exam General: Alert, Oriented x3, Cooperative HEENT: Atraumatic, PERRLA, EOMI, Normocephalic Neck: Supple, No JVD, Negative Carotid Bruits Lungs: Clear to auscultation, Normal air movement, - - Right chest AICD Cardiovascular: Regular rate, Regular Rhythm, Normal S1, Normal S2, No murmurs Abdomen: Bowel Sounds Present, Soft, Non Tender, Non-Distended Extremities: No clubbing, No cyanosis, No edema, Capillary Refill Less than 3 Seconds Skin: No rashes, No breakdown Musculoskeletal: No Tenderness to Palpation of Joints or Extremities Neurological: Cranial nerves II-XII grossly intact Psych/Mental Status: Normal Affect, Appropriate Vital Signs Temp Pulse Resp BP Pulse Ox 97.7 F L 66 20 H 127/69 H 96 04/20/18 14:07 04/20/18 15:17 04/20/18 15:17 04/20/18 15:17 04/20/18 15:17 Oxygen Flow Rate (L/min) 2 Oxygen Delivery Method Room Air Weight: 173 lb Body Mass Index (BMI) 24.8 Laboratory Tests Past 24 Hrs 04/20/18 04/20/18 14:10 14:10 WBC 8.8 RBC 4.74 Hgb 14.9 Hct 45.5 MCV 96.0 H MCH 31.4 MCHC 32.7 RDW 14.2 RDW Differential 50.0 H Plt Count 192 MPV 13.2 H Immature Gran % (Auto) 0.300 Neut % (Auto) 77.5 H Lymph % (Auto) 14.3 L [place] % (Auto) 6.6 Eos % (Auto) 0.8 Baso % (Auto) 0.5 Absolute Neuts (auto) 6.8 Absolute Lymphs (auto) 1.25 Total Counted Not Reportable Sodium 142 Potassium 4.1 Chloride 105 Carbon Dioxide 28.0 Anion Gap 9 BUN 22 H Creatinine 1.18 Estim Creat Clear Calc 49.84 Est GFR (MDRD) Af Amer 76 Est GFR (MDRD) Non-Af 63 BUN/Creatinine Ratio 18.6 Glucose 130 H Calcium 9.0 Troponin I 0.417 H Assessment/Plan All Active Problems (Last Reviewed 04/12/18 @ 11:49 by Jennifer Koehler) Chest pain (Acute) ENTERITIS DUE SALMONELLA (Resolved) Pneumonia, community acquired (Resolved) 1. Unstable angina with indeterminate troponin, suspect NSTEMI/ACS-initial troponin 0.41. EKG without acute changes. Cardiology consulted. Anticipate cardiac catheterization. Trend enzymes. Repeat EKG in a.m. and with new onset chest pain. Nitro drip initiated in ER. Continue therapeutic Lovenox. Patient given aspirin 324 mg p.o. ?1 in ER. 2. Ventricular tachycardia-6 beat run. Monitor telemetry. Check magnesium. 3. CAD status post stent-continue aspirin, Plavix. Cardiology following as noted above. 4. Chronic systolic CHF-echocardiogram completed yesterday showed an EF of 20% , stage I diastolic dysfunction, no significant change compared to prior study. Continue losartan, sotalol regimen. No evidence of acute CHF exacerbation. 5. Ischemic cardiomyopathy status post AICD 6. Hypertension-stable, continue home regimen of losartan, sotalol. 7. Hyperlipidemia-not on statin. Check fasting lipid panel in a.m. 8. Carotid artery disease-continue aspirin, Plavix. 9. GERD- continue PPI. 10. Hiatal hernia 11. DDD- Tylenol PRN for pain. DVT prophylaxis-therapeutic Lovenox subcu. This patient was seen by CHELSI Mueller under the supervision of Dr. Colunga.
--- NOTE | 2018-04-20 17:00 | EKG12_ITS ---
Test Reason : CP Blood Pressure : / mmHG Vent. Rate : 060 BPM Atrial Rate : 060 BPM P-R Int : 192 ms QRS Dur : 116 ms QT Int : 454 ms P-R-T Axes : -18 -40 020 degrees QTc Int : 454 ms Atrial-paced rhythm Left axis deviation Left ventricular hypertrophy with QRS widening Cannot rule out Septal infarct (cited on or before 29-MAR-2017) Possible Lateral infarct (cited on or before 29-MAR-2017) Abnormal ECG When compared with ECG of 29-MAR-2017 05:21, Electronic atrial pacemaker has replaced Sinus rhythm Confirmed by JESSE RODRIGUEZ MD ([id number]), web editor LAVINIA WEST ([id number]) on 04/26/2018 2:34:02 PM Referred By: MARIA GUADALUPE Confirmed By:JESSE RODRIGUEZ MD
--- NOTE | 2018-04-20 17:07 | EKG12_ITS ---
Test Reason : CP Blood Pressure : / mmHG Vent. Rate : 070 BPM Atrial Rate : 070 BPM P-R Int : 154 ms QRS Dur : 116 ms QT Int : 404 ms P-R-T Axes : 000 -41 004 degrees QTc Int : 436 ms Normal sinus rhythm Left axis deviation Left ventricular hypertrophy with QRS widening Possible Lateral infarct , age undetermined Abnormal ECG Confirmed by JENNIFER ROCHA, JESSE ([id number]), proposal editor LAVINIA WE[facility] ([id number]) on 04/23/2018 3:11:08 PM Referred By: ASHLEY Confirmed By:JESSE RODRIGUEZ MD
--- NOTE | 2018-04-20 17:21 | PCM.CONS.C ---
Reason for Consult Date of Consultation: 04/20/18 Reason for Consultation: Chest pain. History of Present Illness: The patient is a 83 year old M with a known history of coronary artery disease status post previous angioplasty and stenting of the right coronary artery as well as the left anterior descending artery and a history of ischemic cardiomyopathy. 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 He says that since then he has had an unusual sensation followed by a jerking movement.. He presented to the emergency room and I was called with rhythm strips which appeared to be consistent with a 7 beat episode of a wide complex tachycardia and occasional A-V dissociation consistent with ventricular tachyarrhythmia. He denies any dizziness or defibrillator discharge. He has not had any nausea or diaphoresis. As you know he underwent a cardiac catheterization in 2015 which demonstrated a long area of stenosis in the distal left anterior descending artery for which medical therapy was recommended. The right coronary artery was previously stented and patent and the circumflex artery was patent. A viability study demonstrated no viability in the anterior, anteroseptal, and apical varghese. A stress test in October 2016 demonstrated a similar pattern with evidence of basal inferior infarct and inferolateral infarct as well. He has had some mild shortness of breath but he says that this is stable at this time. He also just had an echocardiogram which confirmed his reduced ejection fraction with an akinetic anterior wall and apex. [] [] Past Medical History Allergies/Adverse Reactions: Allergies hydrochlorothiazide Allergy (Severe, Verified 03/08/18 09:17) Severe itching rash ranolazine [From Ranexa] Adverse Reaction (Severe, Verified 03/08/18 09:17) Rash omeprazole Adverse Reaction (Verified 03/08/18 09:17) Unknown Phenothiazines Adverse Reaction (Verified 03/08/18 09:17) Unknown PHENEGRANZOLE Adverse Reaction (Uncoded 03/27/17 04:22) Unknown Home Medications: Ambulatory Orders Medication Instructions Recorded Aspirin E.C. [Ecotrin] 81 mg PO DAILY@0800 07/11/13 Folic Acid/Vit Bcomp,C 400 mcg PO DAILY 07/11/13 [L-[place]uxv[place]j-Wha C Time Rel Tab] Multivitamins,Ther W-Minerals 1 tab PO DAILY 11/03/14 [Multivitamin With Minerals] Pantoprazole Sodium [Protonix] 40 mg PO DAILY 10/29/16 Fluticasone Propionate [Flovent 50 mcg IH BID 03/27/17 Diskus] Sotalol Hydrochloride [Betapace 80 mg PO BID #60 tab 03/29/17 (Beta Dmitry)] nitroglycerin 0.4 mg sublingual 0.4 mg SUBLINGUAL Q5-15M PRN 08/18/17 tablet losartan 25 mg tablet 25 mg PO DAILY #90 tab 12/01/17 Clopidogrel Bisulfate [Plavix] 75 mg PO DAILY 04/20/18 Past Medical History (Chronic Problems): Chronic Problems (Last Reviewed 04/12/18 @ 11:49 by Jennifer Koehler) DDD (degenerative disc disease), lumbar (Chronic) Segmental and somatic dysfunction of pelvic region (Chronic) Segmental and somatic dysfunction of thoracic region (Chronic) Segmental and somatic dysfunction of lumbar region (Chronic) History of electrophysiologic study (Chronic) 09/11/2002 @ [facility] per Dr. Holt; and 05/19/[address] Madrigal [facility] History of left heart catheterization (Chronic) 03/05/2002;08/20/2002; 04/2004; May 2010; 11/18/2014 Old myocardial infarction (Chronic) Stented coronary artery (Chronic) Cutting balloon angiplasty of posterior ventricular branch of RCA and stenting of LAD 03/05/2002 @ [facility] per Dr. Murillo. DOUGLAS X 2 to proximal, and Mid to distal RCA 11/18/[address] Le @ [facility] Chronic systolic (congestive) heart failure (Chronic) Atherosclerotic heart disease of [place] coronary artery with other forms of angina pectoris (Chronic) Cutting balloon angiplasty of posterior ventricular branch of RCA and stenting of LAD 03/05/2002 @ [facility] per Dr. Murillo. DOUGLAS X 2 to proximal, and Mid to distal RCA 11/18/[address] Le @ [facility] Nonsustained ventricular tachycardia (Chronic) Palpitations (Chronic) Polycythemia (Chronic) AICD (automatic cardioverter/defibrillator) present (Chronic) Implanted 05/17/2010 GERD (gastroesophageal reflux disease) (Chronic) Hiatal hernia (Chronic) Cardiomyopathy, ischemic (Chronic) HLD (hyperlipidemia) (Chronic) HTN (hypertension) (Chronic) Carotid artery disease (Chronic) Surgical History: angioplasty, cataract, herniorrhaphy, TURP, - - AICD placement - *Family History Maternal Family History: Family History (Last Reviewed 04/20/18 @ 16:39 by CHELSI Mueller) Father CAD (coronary artery disease) Myocardial infarction Sudden cardiac Mother Diabetes History Items: Heart Disease Paternal Family History: Family History (Last Reviewed 04/20/18 @ 16:39 by CHELSI Mueller) Father CAD (coronary artery disease) Myocardial infarction Sudden cardiac Mother Diabetes History Items: Heart Disease Lives: Spouse/ Significant Other Smoking Status: Never smoker Alcohol: None Drugs: None Review of Systems - Review of Systems General: Denies: Fever, Night Sweats, Fatigue Cardiovascular: Reports: Chest Discomfort, Chest Discomfort at Rest. Denies: Shortness of Breath, Orthopnea, PND, Peripheral Edema, Palpitations, Lightheadedness, Dizziness, Near Syncope, Syncope Respiratory: Denies: Cough, Sputum Production, Hemoptysis Gastrointestinal: Denies: Hematemesis, Hematochezia, Melena Genitourinary: Denies: Dysuria, Hematuria Skin: Denies: Rash Subjectve: Pleasant gentleman in no apparent distress Objective: Vital Signs Temp Pulse Resp BP Pulse Ox 98.8 F 62 16 145/75 H 99 04/20/18 17:15 04/20/18 17:15 04/20/18 17:15 04/20/18 17:15 04/20/18 17:15 Oxygen Delivery Method Room Air Weight: 179 lb 10.828 oz Body Mass Index (BMI) 25.7 General: Awake, Alert, Oriented x 3 HEENT: PERRL, EOMI, Sclera Non Icteric Neck: Supple, Good ROM, No Lymph Node Enlargement Lungs: Clear to auscultation Cardiovascular: Regular Rhythm, Normal S1, Normal S2, No Murmurs, No Rubs, No Gallops Vascular: No Carotid Bruits, Normal Femoral Pulses, Normal Radial Pulses, Normal Dorsalis Pedal Pulse, Normal Posterior Tibial Pulses Abdomen: Bowel Sounds Present, Soft, Non Tender, No HSM, No Organomegaly Extremities: No Cyanosis, No Clubbing, No edema Neurological: No Focal Motor or Sensory Deficit Rhythm: EKG: Normal sinus rhythm with a heart rate of 74 bpm and poor R-wave progression. No acute changes noted ECHO: Severe left ventricular systolic dysfunction with estimated ejection fraction of 20% and segmental wall motion abnormalities present Assessment/Plan 1. Cardiac dysrhythmias Patient presented with chest discomfort and was noted to have an episode of nonsustained ventricular tachyarrhythmia. He has been on sotalol at 80 mg twice a day and my recommendation for now would be for us to interrogate his defibrillator in the a.m. and also obtain serial cardiac enzyme evaluation. Depending on the findings further recommendations will be made. 2. Coronary artery disease in a patient with chest pain As noted previously he has had a viability study as well as a stress test which has not demonstrated any evidence of ischemia and his cardiac enzymes are not particularly remarkable at this time. We will continue to monitor serial cardiac enzymes. It is possible that his coronary anatomy has worsened. Depending on the level of the cardiac enzymes we may need to proceed with a cardiac catheterization. In the meantime we will therefore continue with current medical therapy with no major changes 3. Left ventricular systolic dysfunction Does have severe left ventricular systolic dysfunction but has not had any heart failure episodes and the plan would be to continue his current medications. His most recent echocardiogram demonstrated the above. We will continue with his RADAMES inhibitor and beta-dmitry. 4. Hypertension Good control on the current medical therapy and will continue 5. Status post ICD implantation His ICD will be interrogated in a.m. to assess for any significant abnormalities. I have explained the above to him and his they understand and agree to proceed. Thank you for allowing me to participate in the care of your patient. Please don't hesitate to call if any issues arise
--- NOTE | 2018-04-20 17:25 | CON.PCM_ITS ---
Reason for Consult Date of Consultation: 04/20/18 Reason for Consultation: Chest pain. History of Present Illness: The patient is a 83 year old M with a known history of coronary artery disease status post previous angioplasty and stenting of the right coronary artery as well as the left anterior descending artery and a history of ischemic cardiomyopathy. 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 He says that since then he has had an unusual sensation followed by a jerking movement.. He presented to the emergency room and I was called with rhythm strips which appeared to be consistent with a 7 beat episode of a wide complex tachycardia and occasional A -V dissociation consistent with ventricular tachyarrhythmia. He denies any dizziness or defibrillator discharge. He has not had any nausea or diaphoresis. As you know he underwent a cardiac catheterization in 2015 which demonstrated a long area of stenosis in the distal left anterior descending artery for which medical therapy was recommended. The right coronary artery was previously stented and patent and the circumflex artery was patent. A viability study demonstrated no viability in the anterior, anteroseptal, and apical varghese. A stress test in October 2016 demonstrated a similar pattern with evidence of basal inferior infarct and inferolateral infarct as well. He has had some mild shortness of breath but he says that this is stable at this time. He also just had an echocardiogram which confirmed his reduced ejection fraction with an akinetic anterior wall and apex. [] [] Past Medical History Allergies/Adverse Reactions: Allergies hydrochlorothiazide Allergy (Severe, Verified 03/08/18 09:17) Severe itching rash ranolazine [From Ranexa] Adverse Reaction (Severe, Verified 03/08/18 09:17) Rash omeprazole Adverse Reaction (Verified 03/08/18 09:17) Unknown Phenothiazines Adverse Reaction (Verified 03/08/18 09:17) Unknown PHENEGRANZOLE Adverse Reaction (Uncoded 03/27/17 04:22) Unknown Home Medications: Ambulatory Orders Medication Instructions Recorded Aspirin E.C. [Ecotrin] 81 mg PO DAILY@0800 07/11/13 Folic Acid/Vit Bcomp,C 400 mcg PO DAILY 07/11/13 [W-Vsncali-Weu C Time Rel Tab] Multivitamins,Ther W-Minerals 1 tab PO DAILY 11/03/14 [Multivitamin With Minerals] Pantoprazole Sodium [Protonix] 40 mg PO DAILY 10/29/16 Fluticasone Propionate [Flovent 50 mcg IH BID 03/27/17 Diskus] Sotalol Hydrochloride [Betapace 80 mg PO BID #60 tab 03/29/17 (Beta Dmitry)] nitroglycerin 0.4 mg sublingual 0.4 mg SUBLINGUAL Q5-15M PRN 08/18/17 tablet losartan 25 mg tablet 25 mg PO DAILY #90 tab 12/01/17 Clopidogrel Bisulfate [Plavix] 75 mg PO DAILY 04/20/18 Past Medical History (Chronic Problems): Chronic Problems (Last Reviewed 04/12/18 @ 11:49 by Jennifer Koehler) DDD (degenerative disc disease), lumbar (Chronic) Segmental and somatic dysfunction of pelvic region (Chronic) Segmental and somatic dysfunction of thoracic region (Chronic) Segmental and somatic dysfunction of lumbar region (Chronic) History of electrophysiologic study (Chronic) 09/11/2002 @ [facility] per Dr. Holt; and 05/19/[address] Madrigal [facility] History of left heart catheterization (Chronic) 03/05/2002;08/20/2002; 04/2004; May 2010; 11/18/2014 Old myocardial infarction (Chronic) Stented coronary artery (Chronic) Cutting balloon angiplasty of posterior ventricular branch of RCA and stenting of LAD 03/05/2002 @ [facility] per Dr. Murillo. DOUGLAS X 2 to proximal, and Mid to distal RCA 11/18/[address] Le @ [facility] Chronic systolic (congestive) heart failure (Chronic) Atherosclerotic heart disease of [place] coronary artery with other forms of angina pectoris (Chronic) Cutting balloon angiplasty of posterior ventricular branch of RCA and stenting of LAD 03/05/2002 @ [facility] per Dr. Murillo. DOUGLAS X 2 to proximal, and Mid to distal RCA 11/18/[address] Le @ [facility] Nonsustained ventricular tachycardia (Chronic) Palpitations (Chronic) Polycythemia (Chronic) AICD (automatic cardioverter/defibrillator) present (Chronic) Implanted 05/17/2010 GERD (gastroesophageal reflux disease) (Chronic) Hiatal hernia (Chronic) Cardiomyopathy, ischemic (Chronic) HLD (hyperlipidemia) (Chronic) HTN (hypertension) (Chronic) Carotid artery disease (Chronic) Surgical History: angioplasty, cataract, herniorrhaphy, TURP, - - AICD placement - *Family History Maternal Family History: Family History (Last Reviewed 04/20/18 @ 16:39 by CHELSI Mueller) Father CAD (coronary artery disease) Myocardial infarction Sudden cardiac Mother Diabetes History Items: Heart Disease Paternal Family History: Family History (Last Reviewed 04/20/18 @ 16:39 by CHELSI Mueller) Father CAD (coronary artery disease) Myocardial infarction Sudden cardiac Mother Diabetes History Items: Heart Disease Lives: Spouse/ Significant Other Smoking Status: Never smoker Alcohol: None Drugs: None Review of Systems - Review of Systems General: Denies: Fever, Night Sweats, Fatigue Cardiovascular: Reports: Chest Discomfort, Chest Discomfort at Rest. Denies: Shortness of Breath, Orthopnea, PND, Peripheral Edema, Palpitations, Lightheadedness, Dizziness, Near Syncope, Syncope Respiratory: Denies: Cough, Sputum Production, Hemoptysis Gastrointestinal: Denies: Hematemesis, Hematochezia, Melena Genitourinary: Denies: Dysuria, Hematuria Skin: Denies: Rash Subjectve: Pleasant gentleman in no apparent distress Objective: Vital Signs Temp Pulse Resp BP Pulse Ox 98.8 F 62 16 145/75 H 99 04/20/18 17:15 04/20/18 17:15 04/20/18 17:15 04/20/18 17:15 04/20/18 17:15 Oxygen Delivery Method Room Air Weight: 179 lb 10.828 oz Body Mass Index (BMI) 25.7 General: Awake, Alert, Oriented x 3 HEENT: PERRL, EOMI, Sclera Non Icteric Neck: Supple, Good ROM, No Lymph Node Enlargement Lungs: Clear to auscultation Cardiovascular: Regular Rhythm, Normal S1, Normal S2, No Murmurs, No Rubs, No Gallops Vascular: No Carotid Bruits, Normal Femoral Pulses, Normal Radial Pulses, Normal Dorsalis Pedal Pulse, Normal Posterior Tibial Pulses Abdomen: Bowel Sounds Present, Soft, Non Tender, No HSM, No Organomegaly Extremities: No Cyanosis, No Clubbing, No edema Neurological: No Focal Motor or Sensory Deficit Rhythm: EKG: Normal sinus rhythm with a heart rate of 74 bpm and poor R-wave progression. No acute changes noted ECHO: Severe left ventricular systolic dysfunction with estimated ejection fraction of 20% and segmental wall motion abnormalities present Assessment/Plan 1. Cardiac dysrhythmias Patient presented with chest discomfort and was noted to have an episode of nonsustained ventricular tachyarrhythmia. He has been on sotalol at 80 mg twice a day and my recommendation for now would be for us to interrogate his defibrillator in the a.m. and also obtain serial cardiac enzyme evaluation. Depending on the findings further recommendations will be made. 2. Coronary artery disease in a patient with chest pain As noted previously he has had a viability study as well as a stress test which has not demonstrated any evidence of ischemia and his cardiac enzymes are not particularly remarkable at this time. We will continue to monitor serial cardiac enzymes. It is possible that his coronary anatomy has worsened. Depending on the level of the cardiac enzymes we may need to proceed with a cardiac catheterization. In the meantime we will therefore continue with current medical therapy with no major changes 3. Left ventricular systolic dysfunction Does have severe left ventricular systolic dysfunction but has not had any heart failure episodes and the plan would be to continue his current medications. His most recent echocardiogram demonstrated the above. We will continue with his RADAMES inhibitor and beta-dmitry. 4. Hypertension Good control on the current medical therapy and will continue 5. Status post ICD implantation His ICD will be interrogated in a.m. to assess for any significant abnormalities. I have explained the above to him and his they understand and agree to proceed. Thank you for allowing me to participate in the care of your patient. Please don't hesitate to call if any issues arise
[2018-04-20] MEDS: Nitroglycerin Oint 1 INCH PACKET TRANSDERM. (17:47)
[2018-04-20 18:03] LABS: Magnesium 2.1 mg/dL (1.6-2.6)
[2018-04-20] MEDS: Ipratropium/Albuterol Sulfate 3 ML AMPUL.NEB INHALATION (19:20)
[2018-04-20] MEDS: Losartan Potassium 25 MG Tablet PO (21:22)
[2018-04-20] MEDS: Enoxaparin 100 MG/ML Syringe 80 MG SC (21:22)
[2018-04-20] MEDS: Sotalol Hydrochloride 80 MG Tablet PO (21:22)
[2018-04-21] VITALS (17 sets, daily range): BP systolic 112–137; BP diastolic 64–84; PULSE 60–104; RESP 16–18; TEMP 36.6–37.1; O2SAT 93–95
[2018-04-21] MEDS: Nitroglycerin Oint 1 INCH PACKET TRANSDERM. ×4 (00:06→19:22)
[2018-04-21] MEDS: Acetaminophen 325 MG Tablet 650 MG PO (00:12)
--- NOTE | 2018-04-21 05:55 | EKG12_ITS ---
Test Reason : AM EKG Blood Pressure : / mmHG Vent. Rate : 060 BPM Atrial Rate : 060 BPM P-R Int : 192 ms QRS Dur : 116 ms QT Int : 460 ms P-R-T Axes : 085 -46 115 degrees QTc Int : 460 ms Atrial-paced rhythm Left anterior fascicular block Left ventricular hypertrophy with QRS widening Cannot rule out Septal infarct , age undetermined Possible Lateral infarct , age undetermined Abnormal ECG When compared with ECG of 20-APR-2018 17:15, MANUAL COMPARISON REQUIRED, DATA IS UNCONFIRMED Confirmed by JENNIFER ROCHA, JESSE ([id number]), slot editor LAVINIA WEST ([id number]) on 04/25/2018 3:29:14 PM Referred By: DR LERMA Confirmed By:JESSE RODRIGUEZ MD
[2018-04-21 06:42] LABS: Hematocrit 42.5 % (40-54); Hemoglobin 14.3 g/dl (13.0-16.5); Mean Corp Hgb Conc 33.6 g/gl (32-36); Mean Corpuscular Hgb 32.2 pg (27.0-32.0); Mean Corpuscular Volume 95.7 fL (80-94); Mean Platelet Vol. 12.8 fl (6.2-12.0); Platelet Count 152 K/mm3 (150-450); RBC Distribution Width CV 14.2 % (11.6-14.6); RBC Distribution Width SD 48.7 fl (35.1-43.9); Red Blood Count 4.44 M/mm3 (4.6-6.2); White Blood Count 6.8 K/mm3 (4.4-11.0)
[2018-04-21 06:47] LABS: Scan Indicated on CBC? Y/N NO
[2018-04-21 07:02] LABS: Anion Gap 8 (5-15); BUN 21 mg/dL (7-18); BUN/Creat Ratio 20.4 RATIO (10-20); Calcium,Total 8.5 mg/dL (8.5-10.1); Chloride 105 mmol/L (98-107); Cholesterol 170 mg/dL (200); Creatinine, Serum 1.03 mg/dL (0.70-1.30); EST Glomerular Filtration Rate 74 mL/min (>60); Est Glom Filt Rate - Afr Amer 89 mL/min (>60); Estimated Creatinine Clearance 57.09 ml/min; Glucose 109 mg/dL (74-106); High Density Lipoprotein 38 mg/dL; Potassium 4.1 mmol/L (3.5-5.1); Sodium Level 142 mmol/L (136-145); Triglycerides 113 mg/dL; Very Low Density Lipoprotein 23 mg/dL (5-40)
[2018-04-21] MEDS: Ipratropium/Albuterol Sulfate 3 ML AMPUL.NEB INHALATION (07:33)
[2018-04-21] MEDS: Aspirin E.C. 81 MG Tablet PO (08:34)
[2018-04-21] MEDS: Pantoprazole Sodium 40 MG Tablet PO (10:17)
[2018-04-21] MEDS: Clopidogrel Bisulfate 75 MG Tablet PO (10:17)
[2018-04-21] MEDS: Losartan Potassium 25 MG Tablet PO (10:18)
[2018-04-21] MEDS: Enoxaparin 100 MG/ML Syringe 80 MG SC ×2 (10:18→21:42)
--- NOTE | 2018-04-21 11:10 | PN.CARD_ITS ---
Subjectve: Patient seen and evaluated. Appears to be doing well now. No chest pain noted. Objective: Vital Signs Temp Pulse Resp BP Pulse Ox 98.3 F 62 18 114/74 93 04/21/18 10:15 04/21/18 10:15 04/21/18 10:15 04/21/18 10:15 04/21/18 10:15 Oxygen Delivery Method Room Air Weight: 176 lb 12.972 oz Body Mass Index (BMI) 25.7 Intake and Output for Last 24 Hours 04/19/18 04/20/18 04/21/18 23:59 23:59 23:59 Intake Total 360 / 360 120 / 120 Output Total 125 / 125 Balance 360 / 360 -5 / -5 General: Awake, Alert, Oriented x 3 HEENT: PERRL, EOMI, Sclera Non Icteric Neck: Supple, Good ROM, No Lymph Node Enlargement Lungs: Clear to auscultation Cardiovascular: Regular Rhythm, Normal S1, Normal S2, No Murmurs, No Rubs, No Gallops Vascular: No Carotid Bruits, Normal Femoral Pulses, Normal Radial Pulses, Normal Dorsalis Pedal Pulse, Normal Posterior Tibial Pulses Abdomen: Bowel Sounds Present, Soft, Non Tender, No HSM, No Organomegaly Extremities: No Cyanosis, No Clubbing, No edema Neurological: No Focal Motor or Sensory Deficit 04/20/18 17:29: Magnesium 2.1, Troponin I 0.614 H* 04/20/18 20:16: Troponin I 1.310 H* 04/21/18 06:00: WBC 6.8, RBC 4.44 L, Hgb 14.3, Hct 42.5, MCV 95.7 H, MCH 32.2 H , MCHC 33.6, RDW 14.2, RDW Differential 48.7 H, Plt Count 152, MPV 12.8 H 04/21/18 06:00: Sodium 142, Potassium 4.1, Chloride 105, Carbon Dioxide 29.0, Anion Gap 8, BUN 21 H, Creatinine 1.03, Est GFR (MDRD) Af Amer 89, Est GFR (MDRD ) Non-Af 74, BUN/Creatinine Ratio 20.4 H, Glucose 109 H, Calcium 8.5, Triglycerides 113, Cholesterol 170, LDL Cholesterol 109, VLDL Cholesterol 23, HDL Cholesterol 38 L Rhythm: EKG: ECHO: Stress Test: Cardiac Cath: PCI: CT Surgery: Holter monitor: EPS: PPM: CXR: Chest CT Scan: Medical Necessity - Tobacco Use Smoking Status: Never smoker Assessment/Plan 1. Cardiac dysrhythmias Patient presented with chest discomfort and was noted to have an episode of nonsustained ventricular tachyarrhythmia. He has been on sotalol at 80 mg twice a day and his defibrillator was interrogated this morning and there were episodes of nonsustained ventricular tachyarrhythmia and one episode of VT. This was on 03/20. 2. Coronary artery disease in a patient with chest pain As noted previously he has had a viability study as well as a stress test which has not demonstrated any evidence of ischemia and his cardiac enzymes are not particularly remarkable at this time. We will continue to monitor serial cardiac enzymes. It is possible that his coronary anatomy has worsened. In light of his elevated cardiac enzymes I would recommend that we obtain a left heart catheterization to assess and make sure that his coronary anatomy has not gotten any worse. 3. Left ventricular systolic dysfunction Does have severe left ventricular systolic dysfunction but has not had any heart failure episodes and the plan would be to continue his current medications. His most recent echocardiogram demonstrated the above. We will continue with his RADAMES inhibitor and beta-suha. 4. Hypertension Good control on the current medical therapy and will continue 5. Status post ICD implantation His ICD was interrogated, and does not demonstrate any sustained ventricular tachyarrhythmia by the episodes of nonsustained ventricular tachyarrhythmia noted. I recommend increasing his sotalol 120 mg twice a day. I have explained the above to him and his they understand and agree to proceed. Thank you for allowing me to participate in the care of your patient. Please don't hesitate to call if any issues arise
[2018-04-21] MEDS: Sotalol Hydrochloride 80 MG Tablet PO (11:13)
--- NOTE | 2018-04-21 12:04 | PN_ITS ---
Subjective: Patient seen and examined. Denies further chest pain overnight. States he feels better than he has in 2 days. Denies shortness of breath, palpitations. No other complaints at this time. - Physical Exam General: Alert, Oriented x3, Cooperative, No apparent distress HEENT: Atraumatic, PERRLA, EOMI, Normocephalic Neck: Supple, No JVD, Negative Carotid Bruits Lungs: Clear to auscultation, Normal air movement, - - Right chest AICD. Cardiovascular: Regular rate, Regular Rhythm, Normal S1, Normal S2, No murmurs Abdomen: Bowel Sounds Present, Soft, Non Tender, Non-Distended Extremities: No clubbing, No cyanosis, No edema, Capillary Refill Less than 3 Seconds Skin: No rashes, No breakdown Musculoskeletal: No Tenderness to Palpation of Joints or Extremities Neurological: Cranial nerves II-XII grossly intact, Neuro grossly intact Psych/Mental Status: Normal Affect, Appropriate Vital Signs Temp Pulse Resp BP Pulse Ox 98.3 F 69 18 132/64 H 93 04/21/18 10:15 04/21/18 11:14 04/21/18 10:15 04/21/18 11:14 04/21/18 10:15 Oxygen Delivery Method Room Air Weight: 176 lb 12.972 oz Body Mass Index (BMI) 25.7 Intake and Output for Last 24 Hours 04/19/18 04/20/18 04/21/18 23:59 23:59 23:59 Intake Total 360 / 360 120 / 120 Output Total 125 / 125 Balance 360 / 360 -5 / -5 Laboratory Tests Past 24 Hrs 04/20/18 04/20/18 04/21/18 17:29 20:16 06:00 WBC 6.8 RBC 4.44 L Hgb 14.3 Hct 42.5 MCV 95.7 H MCH 32.2 H MCHC 33.6 RDW 14.2 RDW Differential 48.7 H Plt Count 152 MPV 12.8 H Sodium Potassium Chloride Carbon Dioxide Anion Gap BUN Creatinine Estim Creat Clear Calc Est GFR (MDRD) Af Amer Est GFR (MDRD) Non-Af BUN/Creatinine Ratio Glucose Calcium Magnesium 2.1 Troponin I 0.614 H* 1.310 H* Triglycerides Cholesterol LDL Cholesterol VLDL Cholesterol HDL Cholesterol 04/21/18 06:00 WBC RBC Hgb Hct MCV MCH MCHC RDW RDW Differential Plt Count MPV Sodium 142 Potassium 4.1 Chloride 105 Carbon Dioxide 29.0 Anion Gap 8 BUN 21 H Creatinine 1.03 Estim Creat Clear Calc 57.09 Est GFR (MDRD) Af Amer 89 Est GFR (MDRD) Non-Af 74 BUN/Creatinine Ratio 20.4 H Glucose 109 H Calcium 8.5 Magnesium Troponin I Triglycerides 113 Cholesterol 170 LDL Cholesterol 109 VLDL Cholesterol 23 HDL Cholesterol 38 L Medical Necessity - Tobacco Use Smoking Status: Never smoker Assessment/Plan All Active Problems (Last Reviewed 04/12/18 @ 11:49 by Jennifer Koehler) Chest pain (Acute) ENTERITIS DUE SALMONELLA (Resolved) Pneumonia, community acquired (Resolved) 1. Unstable angina with indeterminate troponin, suspect NSTEMI/ACS-EKG without acute changes. Cardiology consulted. Plan for cardiac catheterization Monday. Repeat EKG with new onset chest pain. Continue therapeutic Lovenox. Continue aspirin, Plavix, statin, losartan, nitro Transderm patch. 2. Intermittent Ventricular tachycardia-electrolytes within normal limits. Monitor telemetry. Sotalol increased to 120 mg twice daily. 3. CAD status post stent-continue aspirin, Plavix, statin. Cardiology following as noted above. 4. Chronic systolic CHF-echocardiogram completed yesterday showed an EF of 20% , stage I diastolic dysfunction, no significant change compared to prior study. Continue losartan, sotalol regimen. No evidence of acute CHF exacerbation. 5. Ischemic cardiomyopathy status post AICD 6. Hypertension-stable, continue home regimen of losartan, sotalol. 7. Hyperlipidemia-continue statin. 8. Carotid artery disease-continue aspirin, Plavix, statin. 9. GERD- continue PPI. 10. Hiatal hernia 11. DDD- Tylenol PRN for pain. DVT prophylaxis-therapeutic Lovenox subcu. This patient was seen by CHELSI Mueller under the supervision of Dr. Colunga.
[2018-04-21] MEDS: Atorvastatin Calcium 80 MG Tablet PO (21:42)
[2018-04-21] MEDS: Sotalol Hydrochloride 80 MG Tablet 120 MG PO (21:44)
[2018-04-22] VITALS (14 sets, daily range): BP systolic 107–149; BP diastolic 66–94; PULSE 62–78; RESP 14–18; TEMP 36.6–37.3; O2SAT 92–97
[2018-04-22] MEDS: Nitroglycerin Oint 1 INCH PACKET TRANSDERM. ×2 (00:18→05:42)
[2018-04-22] MEDS: Acetaminophen 325 MG Tablet 650 MG PO (02:52)
[2018-04-22 06:14] LABS: Hematocrit 44.5 % (40-54); Mean Corp Hgb Conc 33.7 g/gl (32-36); Mean Corpuscular Hgb 32.1 pg (27.0-32.0); Mean Corpuscular Volume 95.1 fL (80-94); Mean Platelet Vol. 12.8 fl (6.2-12.0); Platelet Count 171 K/mm3 (150-450); RBC Distribution Width CV 14.2 % (11.6-14.6); Red Blood Count 4.68 M/mm3 (4.6-6.2); White Blood Count 7.2 K/mm3 (4.4-11.0)
[2018-04-22 06:21] LABS: Scan Indicated on CBC? Y/N NO
[2018-04-22 06:33] LABS: Anion Gap 8 (5-15); BUN 22 mg/dL (7-18); BUN/Creat Ratio 19.5 RATIO (10-20); Calcium,Total 8.6 mg/dL (8.5-10.1); Chloride 106 mmol/L (98-107); Creatinine, Serum 1.13 mg/dL (0.70-1.30); EST Glomerular Filtration Rate 66 mL/min (>60); Est Glom Filt Rate - Afr Amer 80 mL/min (>60); Estimated Creatinine Clearance 52.04 ml/min; Glucose 106 mg/dL (74-106); Potassium 4.1 mmol/L (3.5-5.1); Sodium Level 141 mmol/L (136-145)
[2018-04-22] MEDS: Aspirin E.C. 81 MG Tablet PO (07:59)
--- NOTE | 2018-04-22 08:16 | PCM.PN.CARD ---
Subjectve: Patient seen and evaluated. Appears to be pain-free at this time. No complaints. Objective: Vital Signs Temp Pulse Resp BP Pulse Ox 97.9 F 62 14 134/80 H 93 04/22/18 04:02 04/22/18 06:58 04/22/18 04:02 04/22/18 05:42 04/22/18 04:02 Oxygen Delivery Method Room Air Weight: 176 lb 2.389 oz Body Mass Index (BMI) 25.7 Intake and Output for Last 24 Hours 04/20/18 04/21/18 04/22/18 23:59 23:59 23:59 Intake Total 360 / 360 1100 / 1100 Output Total 300 / 300 Balance 360 / 360 800 / 800 General: Awake, Alert, Oriented x 3 HEENT: PERRL, EOMI, Sclera Non Icteric Neck: Supple, Good ROM, No Lymph Node Enlargement Lungs: Clear to auscultation Cardiovascular: Regular Rhythm, Normal S1, Normal S2, No Murmurs, No Rubs, No Gallops Vascular: No Carotid Bruits, Normal Femoral Pulses, Normal Radial Pulses, Normal Dorsalis Pedal Pulse, Normal Posterior Tibial Pulses Abdomen: Bowel Sounds Present, Soft, Non Tender, No HSM, No Organomegaly Extremities: No Cyanosis, No Clubbing, No edema Neurological: No Focal Motor or Sensory Deficit 04/22/18 05:25: WBC 7.2, RBC 4.68, Hgb 15.0, Hct 44.5, MCV 95.1 H, MCH 32.1 H, MCHC 33.7, RDW 14.2, RDW Differential 48.0 H, Plt Count 171, MPV 12.8 H 04/22/18 05:25: Sodium 141, Potassium 4.1, Chloride 106, Carbon Dioxide 27.0, Anion Gap 8, BUN 22 H, Creatinine 1.13, Est GFR (MDRD) Af Amer 80, Est GFR (MDRD) Non-Af 66, BUN/Creatinine Ratio 19.5, Glucose 106, Calcium 8.6 Rhythm: EKG: ECHO: Stress Test: Cardiac Cath: PCI: CT Surgery: Holter monitor: EPS: PPM: CXR: Chest CT Scan: Medical Necessity - Tobacco Use Smoking Status: Never smoker Assessment/Plan 1. Cardiac dysrhythmias Patient presented with chest discomfort and was noted to have an episode of nonsustained ventricular tachyarrhythmia. He has been on sotalol at 80 mg twice a day and his defibrillator was interrogated and there were episodes of nonsustained ventricular tachyarrhythmia and one episode of VT. This was on 03/20. The recommendation at this time would be to increase his sotalol to 120 mg twice a day 2. Coronary artery disease in a patient with chest pain As noted previously he has had a viability study as well as a stress test which has not demonstrated any evidence of ischemia and his cardiac enzymes are not particularly remarkable at this time. We will continue to monitor serial cardiac enzymes. It is possible that his coronary anatomy has worsened. In light of his elevated cardiac enzymes I would recommend that we obtain a left heart catheterization to assess and make sure that his coronary anatomy has not gotten any worse. We will arrange for left heart catheterization in a.m. Of note is the fact that a previous stress and viability study demonstrated an extensive anterior infarct 3. Left ventricular systolic dysfunction Does have severe left ventricular systolic dysfunction but has not had any heart failure episodes and the plan would be to continue his current medications. His most recent echocardiogram demonstrated the above. We will continue with his RADAMES inhibitor and beta-suha. 4. Hypertension Good control on the current medical therapy and will continue 5. Status post ICD implantation His ICD was interrogated, and does not demonstrate any sustained ventricular tachyarrhythmia by the episodes of nonsustained ventricular tachyarrhythmia noted. I recommend increasing his sotalol 120 mg twice a day. I have explained the above to him and his they understand and agree to proceed. Thank you for allowing me to participate in the care of your patient. Please don't hesitate to call if any issues arise
[2018-04-22] MEDS: Enoxaparin 100 MG/ML Syringe 80 MG SC ×2 (09:57→21:38)
[2018-04-22] MEDS: Clopidogrel Bisulfate 75 MG Tablet PO (09:57)
[2018-04-22] MEDS: Pantoprazole Sodium 40 MG Tablet PO (09:57)
[2018-04-22] MEDS: Losartan Potassium 25 MG Tablet PO (09:57)
[2018-04-22] MEDS: Sotalol Hydrochloride 80 MG Tablet 120 MG PO ×2 (09:58→21:38)
--- NOTE | 2018-04-22 11:04 | PN_ITS ---
Subjective: Patient seen and examined. Denies further chest pain overnight. Complains of mild headache which was relieved with Tylenol. No other current complaints. - Physical Exam General: Alert, Oriented x3, Cooperative, No apparent distress HEENT: Atraumatic, PERRLA, EOMI, Normocephalic Neck: Supple, No JVD, Negative Carotid Bruits Lungs: Clear to auscultation, Normal air movement, - - Right chest AICD. Cardiovascular: Regular rate, Regular Rhythm, Normal S1, Normal S2, No murmurs Abdomen: Bowel Sounds Present, Soft, Non Tender, Non-Distended Extremities: No clubbing, No cyanosis, No edema, Capillary Refill Less than 3 Seconds Skin: No rashes, No breakdown Musculoskeletal: No Tenderness to Palpation of Joints or Extremities Neurological: Cranial nerves II-XII grossly intact, Neuro grossly intact Psych/Mental Status: Normal Affect, Appropriate Vital Signs Temp Pulse Resp BP Pulse Ox 98.6 F 78 18 128/80 H 95 04/22/18 09:50 04/22/18 09:50 04/22/18 09:50 04/22/18 09:50 04/22/18 09:50 Oxygen Delivery Method Room Air Weight: 176 lb 2.389 oz Body Mass Index (BMI) 25.7 Intake and Output for Last 24 Hours 04/20/18 04/21/18 04/22/18 23:59 23:59 23:59 Intake Total 360 / 360 1100 / 1100 20 / 20 Output Total 300 / 300 Balance 360 / 360 800 / 800 20 / 20 Laboratory Tests Past 24 Hrs 04/22/18 04/22/18 05:25 05:25 WBC 7.2 RBC 4.68 Hgb 15.0 Hct 44.5 MCV 95.1 H MCH 32.1 H MCHC 33.7 RDW 14.2 RDW Differential 48.0 H Plt Count 171 MPV 12.8 H Sodium 141 Potassium 4.1 Chloride 106 Carbon Dioxide 27.0 Anion Gap 8 BUN 22 H Creatinine 1.13 Estim Creat Clear Calc 52.04 Est GFR (MDRD) Af Amer 80 Est GFR (MDRD) Non-Af 66 BUN/Creatinine Ratio 19.5 Glucose 106 Calcium 8.6 Medical Necessity - Tobacco Use Smoking Status: Never smoker Assessment/Plan All Active Problems (Last Reviewed 04/12/18 @ 11:49 by Jennifer Koehler) Chest pain (Acute) ENTERITIS DUE SALMONELLA (Resolved) Pneumonia, community acquired (Resolved) 1. Unstable angina with indeterminate troponin, suspect NSTEMI/ACS-EKG without acute changes. Cardiology consulted. Plan for cardiac catheterization Monday. Repeat EKG with new onset chest pain. Continue therapeutic Lovenox. Continue aspirin, Plavix, statin, losartan, nitro Transderm patch. 2. Intermittent nonsustained ventricular tachycardia-electrolytes within normal limits. Monitor telemetry. Sotalol increased to 120 mg twice daily. 3. CAD status post stent-continue aspirin, Plavix, statin. Cardiology following as noted above. 4. Chronic systolic CHF-echocardiogram completed yesterday showed an EF of 20% , stage I diastolic dysfunction, no significant change compared to prior study. Continue losartan, sotalol regimen. No evidence of acute CHF exacerbation. 5. Ischemic cardiomyopathy status post AICD-ICD interrogated. No sustained ventricular tachyarrhythmia. Sotalol increased for nonsustained ventricular tachyarrhythmia as noted above. 6. Hypertension-stable, continue home regimen of losartan, sotalol. 7. Hyperlipidemia-continue statin. 8. Carotid artery disease-continue aspirin, Plavix, statin. 9. GERD- continue PPI. 10. Hiatal hernia 11. DDD- Tylenol PRN for pain. DVT prophylaxis-therapeutic Lovenox subcu. This patient was seen by CHELSI Mueller under the supervision of Dr. Colunga.
[2018-04-23] VITALS (16 sets, daily range): BP systolic 111–159; BP diastolic 60–84; PULSE 62–70; RESP 14–17; TEMP 36.3–36.9; O2SAT 92–99
[2018-04-23 01:01] LABS: Color, Urine Yellow (Yellow); Glucose, Dipstick Normal (Normal); Ketone-Dipstick Negative (Negative); Leukocyte Esterase-Dipstick 25 /ul (Negative); Nitrite-Dipstick Negative (Negative); Occult Blood-Urine 250 /ul (Negative); Protein-Dipstick Negative (Negative); Urine Bilirubin Dipstick Negative (Negative); Urine Clarity Clear (Clear); Urine Urobilinogen Normal (Normal)
--- NOTE | 2018-04-23 05:55 | EKG12_ITS ---
Test Reason : AM EKG Blood Pressure : / mmHG Vent. Rate : 068 BPM Atrial Rate : 068 BPM P-R Int : 156 ms QRS Dur : 116 ms QT Int : 468 ms P-R-T Axes : -01 -41 055 degrees QTc Int : 497 ms Normal sinus rhythm Left axis deviation Left ventricular hypertrophy with QRS widening Cannot rule out Septal infarct , age undetermined Possible Lateral infarct , age undetermined Abnormal ECG Confirmed by JENNIFER ROCHA, JESSE ([id number]), fan mail editor LAVINIA WEST ([id number]) on 04/26/2018 2:33:52 PM Referred By: DR LERMA Confirmed By:JESSE RODRIGUEZ MD
[2018-04-23] MEDS: Aspirin E.C. 81 MG Tablet PO (06:11)
[2018-04-23] MEDS: Sotalol Hydrochloride 80 MG Tablet 120 MG PO (06:12)
[2018-04-23] MEDS: Losartan Potassium 25 MG Tablet PO (06:12)
[2018-04-23] MEDS: Clopidogrel Bisulfate 75 MG Tablet PO (06:12)
[2018-04-23 06:14] LABS: Prothrombin Time (Protime)PT. 13.3 SECONDS (11.7-14.9)
[2018-04-23 06:16] LABS: Partial Thromboplast Time 43.6 Seconds (24.1-36.2)
[2018-04-23] MEDS: 0.9% Normal Saline 1,000 ML 15 ML IV (06:16)
[2018-04-23] MEDS: 0.9% NaCl Peripheral Flush Adult/Peds IV (06:18)
[2018-04-23 06:20] LABS: Mean Corp Hgb Conc 33.3 g/gl (32-36); Mean Corpuscular Hgb 31.5 pg (27.0-32.0); Mean Corpuscular Volume 94.5 fL (80-94); Platelet Count 192 K/mm3 (150-450); RBC Distribution Width CV 14.1 % (11.6-14.6); RBC Distribution Width SD 47.6 fl (35.1-43.9); Red Blood Count 5.08 M/mm3 (4.6-6.2); White Blood Count 7.6 K/mm3 (4.4-11.0)
[2018-04-23 06:23] LABS: Scan Indicated on CBC? Y/N NO
[2018-04-23 06:27] LABS: Anion Gap 8 (5-15); BUN 23 mg/dL (7-18); BUN/Creat Ratio 20.9 RATIO (10-20); Chloride 104 mmol/L (98-107); EST Glomerular Filtration Rate 68 mL/min (>60); Est Glom Filt Rate - Afr Amer 82 mL/min (>60); Estimated Creatinine Clearance 53.46 ml/min; Glucose 104 mg/dL (74-106); Sodium Level 141 mmol/L (136-145)
--- NOTE | 2018-04-23 07:34 | NURSING ---
Report called to Facundo in [employer] lab technician at 07:10.
--- NOTE | 2018-04-23 08:10 | PCM.PN.CARD ---
Subjectve: Patient seen and evaluated. Appears to be stable. Objective: Vital Signs Temp Pulse Resp BP Pulse Ox 98.2 F 67 17 151/84 H 92 04/23/18 06:00 04/23/18 06:00 04/23/18 06:00 04/23/18 06:00 04/23/18 06:00 Oxygen Delivery Method Room Air Weight: 173 lb 8.061 oz Body Mass Index (BMI) 25.7 Intake and Output for Last 24 Hours 04/21/18 04/22/18 04/23/18 23:59 23:59 23:59 Intake Total 1100 / 1100 430 / 430 Output Total 300 / 300 175 / 175 Balance 800 / 800 255 / 255 General: Awake, Alert, Oriented x 3 HEENT: PERRL, EOMI, Sclera Non Icteric Neck: Supple, Good ROM, No Lymph Node Enlargement Lungs: Clear to auscultation Cardiovascular: Regular Rhythm, Normal S1, Normal S2, No Murmurs, No Rubs, No Gallops Vascular: No Carotid Bruits, Normal Femoral Pulses, Normal Radial Pulses, Normal Dorsalis Pedal Pulse, Normal Posterior Tibial Pulses Abdomen: Bowel Sounds Present, Soft, Non Tender, No HSM, No Organomegaly Extremities: No Cyanosis, No Clubbing, No edema Neurological: No Focal Motor or Sensory Deficit 04/23/18 00:45: Urine Color Yellow, Urine Clarity Clear, Urine pH 5.0, Ur Specific [place] 1.020, Urine Protein Negative, Urine Glucose (UA) Normal, Urine Ketones Negative, Urine Occult Blood 250 H, Urine Nitrite Negative, Urine Bilirubin Negative, Urine Urobilinogen Normal, Ur Leukocyte Esterase 25 H 04/23/18 05:50: WBC 7.6, RBC 5.08, Hgb 16.0, Hct 48.0, MCV 94.5 H, MCH 31.5, MCHC 33.3, RDW 14.1, RDW Differential 47.6 H, Plt Count 192, MPV 13.0 H 04/23/18 05:50: PT 13.3, INR 1.0, APTT 43.6 H 04/23/18 05:55: Sodium 141, Potassium 4.0, Chloride 104, Carbon Dioxide 29.0, Anion Gap 8, BUN 23 H, Creatinine 1.10, Est GFR (MDRD) Af Amer 82, Est GFR (MDRD) Non-Af 68, BUN/Creatinine Ratio 20.9 H, Glucose 104, Calcium 9.0 Rhythm: EKG: ECHO: Stress Test: Cardiac Cath: PCI: CT Surgery: Holter monitor: EPS: PPM: CXR: Chest CT Scan: Medical Necessity - Tobacco Use Smoking Status: Never smoker Assessment/Plan 1. Cardiac dysrhythmias Patient presented with chest discomfort and was noted to have an episode of nonsustained ventricular tachyarrhythmia. He has been on sotalol at 80 mg twice a day and his defibrillator was interrogated and there were episodes of nonsustained ventricular tachyarrhythmia and one episode of VT. This was on 03/20. The recommendation at this time would be to increase his sotalol to 120 mg twice a day 2. Coronary artery disease in a patient with chest pain As noted previously he has had a viability study as well as a stress test which has not demonstrated any evidence of ischemia and his cardiac enzymes are not particularly remarkable at this time. We will continue to monitor serial cardiac enzymes. It is possible that his coronary anatomy has worsened. He underwent a cardiac catheterization today which demonstrated the following: Left main coronary artery disease with 30% distal stenosis. Left anterior descending artery with total mid segment occlusion which is changed from prior. Left circumflex artery which is nondominant with proximal 50% stenosis in mid 50-60% stenosis. Dominant large right coronary artery with diffuse disease of approximately 30-50% stenosis. Severe left ventricular systolic dysfunction estimated EF 15-20% with akinetic anterior wall. Based on the above angiographic findings I would recommend repeating stress test to make sure that there is no lateral wall ischemia. If there is then a determination will be made as to whether he would undergo high risk angioplasty of the circumflex artery lesion. Otherwise medical therapy will be continued. In the meantime he will be started on isosorbide 30 mg once a day. 3. Left ventricular systolic dysfunction Does have severe left ventricular systolic dysfunction but has not had any heart failure episodes and the plan would be to continue his current medications. His most recent echocardiogram demonstrated the above. We will continue with his RADAMES inhibitor and beta-suha. 4. Hypertension Good control on the current medical therapy and will continue 5. Status post ICD implantation His ICD was interrogated, and does not demonstrate any sustained ventricular tachyarrhythmia by the episodes of nonsustained ventricular tachyarrhythmia noted. I recommend increasing his sotalol 120 mg twice a day. I have explained the above to him and his they understand and agree to proceed. From the cardiac standpoint he can be discharged today. Thank you for allowing me to participate in the care of your patient. Please don't hesitate to call if any issues arise .
--- NOTE | 2018-04-23 08:13 | PN.CARD_ITS ---
Subjectve: Patient seen and evaluated. Appears to be stable. Objective: Vital Signs Temp Pulse Resp BP Pulse Ox 98.2 F 67 17 151/84 H 92 04/23/18 06:00 04/23/18 06:00 04/23/18 06:00 04/23/18 06:00 04/23/18 06:00 Oxygen Delivery Method Room Air Weight: 173 lb 8.061 oz Body Mass Index (BMI) 25.7 Intake and Output for Last 24 Hours 04/21/18 04/22/18 04/23/18 23:59 23:59 23:59 Intake Total 1100 / 1100 430 / 430 Output Total 300 / 300 175 / 175 Balance 800 / 800 255 / 255 General: Awake, Alert, Oriented x 3 HEENT: PERRL, EOMI, Sclera Non Icteric Neck: Supple, Good ROM, No Lymph Node Enlargement Lungs: Clear to auscultation Cardiovascular: Regular Rhythm, Normal S1, Normal S2, No Murmurs, No Rubs, No Gallops Vascular: No Carotid Bruits, Normal Femoral Pulses, Normal Radial Pulses, Normal Dorsalis Pedal Pulse, Normal Posterior Tibial Pulses Abdomen: Bowel Sounds Present, Soft, Non Tender, No HSM, No Organomegaly Extremities: No Cyanosis, No Clubbing, No edema Neurological: No Focal Motor or Sensory Deficit 04/23/18 00:45: Urine Color Yellow, Urine Clarity Clear, Urine pH 5.0, Ur Specific [place] 1.020, Urine Protein Negative, Urine Glucose (UA) Normal, Urine Ketones Negative, Urine Occult Blood 250 H, Urine Nitrite Negative, Urine Bilirubin Negative, Urine Urobilinogen Normal, Ur Leukocyte Esterase 25 H 04/23/18 05:50: WBC 7.6, RBC 5.08, Hgb 16.0, Hct 48.0, MCV 94.5 H, MCH 31.5, MCHC 33.3, RDW 14.1, RDW Differential 47.6 H, Plt Count 192, MPV 13.0 H 04/23/18 05:50: PT 13.3, INR 1.0, APTT 43.6 H 04/23/18 05:55: Sodium 141, Potassium 4.0, Chloride 104, Carbon Dioxide 29.0, Anion Gap 8, BUN 23 H, Creatinine 1.10, Est GFR (MDRD) Af Amer 82, Est GFR (MDRD ) Non-Af 68, BUN/Creatinine Ratio 20.9 H, Glucose 104, Calcium 9.0 Rhythm: EKG: ECHO: Stress Test: Cardiac Cath: PCI: CT Surgery: Holter monitor: EPS: PPM: CXR: Chest CT Scan: Medical Necessity - Tobacco Use Smoking Status: Never smoker Assessment/Plan 1. Cardiac dysrhythmias Patient presented with chest discomfort and was noted to have an episode of nonsustained ventricular tachyarrhythmia. He has been on sotalol at 80 mg twice a day and his defibrillator was interrogated and there were episodes of nonsustained ventricular tachyarrhythmia and one episode of VT. This was on . The recommendation at this time would be to increase his sotalol to 120 mg twice a day 2. Coronary artery disease in a patient with chest pain As noted previously he has had a viability study as well as a stress test which has not demonstrated any evidence of ischemia and his cardiac enzymes are not particularly remarkable at this time. We will continue to monitor serial cardiac enzymes. It is possible that his coronary anatomy has worsened. He underwent a cardiac catheterization today which demonstrated the following: Left main coronary artery disease with 30% distal stenosis. Left anterior descending artery with total mid segment occlusion which is changed from prior. Left circumflex artery which is nondominant with proximal 50% stenosis in mid 50 -60% stenosis. Dominant large right coronary artery with diffuse disease of approximately 30-50 % stenosis. Severe left ventricular systolic dysfunction estimated EF 15-20% with akinetic anterior wall. Based on the above angiographic findings I would recommend repeating stress test to make sure that there is no lateral wall ischemia. If there is then a determination will be made as to whether he would undergo high risk angioplasty of the circumflex artery lesion. Otherwise medical therapy will be continued. In the meantime he will be started on isosorbide 30 mg once a day. 3. Left ventricular systolic dysfunction Does have severe left ventricular systolic dysfunction but has not had any heart failure episodes and the plan would be to continue his current medications. His most recent echocardiogram demonstrated the above. We will continue with his RADAMES inhibitor and beta-suha. 4. Hypertension Good control on the current medical therapy and will continue 5. Status post ICD implantation His ICD was interrogated, and does not demonstrate any sustained ventricular tachyarrhythmia by the episodes of nonsustained ventricular tachyarrhythmia noted. I recommend increasing his sotalol 120 mg twice a day. I have explained the above to him and his they understand and agree to proceed. From the cardiac standpoint he can be discharged today. Thank you for allowing me to participate in the care of your patient. Please don't hesitate to call if any issues arise .
--- NOTE | 2018-04-23 08:19 | CL.D_ITS ---
Patient Name: FLEX GARCIA Study Date: 04/23/2018 Performing: Roque Lawrence MD Ht: 70.07 inches 178 cm : 1935 Wt: 174.17 lbs 79 kg Age: 83 Gender: male BSA: 1.97 PROCEDURE(S) PERFORMED [id number]/LV CLINICAL PROFILE AND INDICATIONS Indications: New Onset Angina <= 2 months Heart Failure: None Stress/Imaging Stress/Image Study Performed: No CAD Presentations: Unstable angina. CONCLUSIONS Severe disease including a recently occluded mid left anterior descending artery, moderate disease in volving the circumflex artery and mild disease involving the dominant right coronary artery with dandy re left ventricular systolic dysfunction RECOMMENDATIONS Would recommend myocardial perfusion stress test to exclude any ischemia in the lateral distribution. A previous stress test that had been performed demonstrated no viability noted in the entire anteri or wall. If there is no ischemia noted in the lateral distribution then medical therapy would be con tinued.. DESCRIPTION OF PROCEDURE The patient arrived to the procedure lab. The risks and benefits of the procedure as well as a full d escription of our services here and current unavailability of surgical backup were fully explained to the patient and/or their significant other prior to the catheterization. The Timeout was completed, verifying the correct patient and procedure. The patient's procedural site was prepped and draped in the usual fashion. Local anesthetic was given subcutaneously to right groin region with Lidocaine 2%. Using a modified Seldinger technique, arterial access was obtained via the right femoral artery, a 5 Fr sheath was inserted. Left Coronary Artery selective angiography was performed in multiple views u sing a 5 Fr. JL4 catheter. Right Coronary Artery selective angiography was then performed in multiple views using a 5 Fr. 3DRC ([place]) catheter. Left Ventriculography was performed in POSADA projection using a 5 Fr. Pigtail catheter. LV to AO pullback pressures were then recorded.The arterial sheath wa s pulled and manual compression applied until hemostasis is achieved. CORONARY ANGIOGRAPHY DOMINANCE: Right Dominant LEFT HEART ASSESSMENT Left Ventricular Ejection Fraction: by LV Gram 20 % Anterior Akinesis. Apical Akinesis Depressed Left Ventricular systolic function LEFT MAIN: 30 % Stenosis LEFT ANTERIOR DECENDING ARTERY: PROX LAD: Severe disease MID LAD: is occluded CIRCUMFLEX ARTERY: PROX CIRC: 50 % Stenosis MID CIRC: 60 % Stenosis RIGHT CORONARY ARTERY: Moderate luminal irregularities up to 50% COMPLICATIONS No Complications PROCEDURE MEDICATIONS Versed 1 mg IV Oxygen: 2 L/min via nasal cannula SUMMARY OF HEMODYNAMIC DATA Time AIR REST ECG 07:31:45 AO 145/74 (102) SA 07:45:19 LV 138/2, 7 07:56:27 LV 145/5, 10 07:56:35 LV 101/1, 3 07:58:41 LV 112/2, 5 07:58:48 LVp 117/0, 5 07:58:51 AOp 123/58 (83) 07:58:56 Signed By Roque Lawrence MD On 04/23/2018 08:19:15 Roque Lawrence MD
[2018-04-23] MEDS: Pantoprazole Sodium 40 MG Tablet PO (09:30)
--- NOTE | 2018-04-23 11:20 | PCM.DC ---
You will use the following diet at home:: Cardiac Discharge Activity: Return to Normal Activity Call your doctor if you observe: Shortness of breath, Dizziness, Fainting spells, Chest pain Allergies/Adverse Reactions: Allergies hydrochlorothiazide Allergy (Severe, Verified 03/08/18 09:17) Severe itching rash ranolazine [From Ranexa] Adverse Reaction (Severe, Verified 03/08/18 09:17) Rash omeprazole Adverse Reaction (Verified 03/08/18 09:17) Unknown Phenothiazines Adverse Reaction (Verified 03/08/18 09:17) Unknown PHENEGRANZOLE Adverse Reaction (Uncoded 03/27/17 04:22) Unknown Medications to take at Discharge Aspirin E.C. [Ecotrin] 81 mg PO DAILY@0800 07/11/13 Folic Acid/Vit Bcomp,C [R-Asftrvx-Auu C Time Rel Tab] 400 mcg PO DAILY 07/11/13 Multivitamins,Ther W-Minerals [Multivitamin With Minerals] 1 tab PO DAILY 11/03/14 Pantoprazole Sodium [Protonix] 40 mg PO DAILY 10/29/16 Fluticasone Propionate [Flovent Diskus] 50 mcg IH BID 03/27/17 nitroglycerin 0.4 mg sublingual tablet 0.4 mg SUBLINGUAL Q5-15M PRN 08/18/17 losartan 25 mg tablet 25 mg PO DAILY #90 tab 12/01/17 Clopidogrel Bisulfate [Plavix] 75 mg PO DAILY 04/20/18 Isosorbide Mononitrate [Imdur] 30 mg PO DAILY #30 tab 04/23/18 Sotalol Hydrochloride [Betapace (Beta Mditry)] 120 mg PO BID #120 tab 04/23/18 The following prescriptions were given: Isosorbide Mononitrate [Imdur] 30 mg PO DAILY #30 tab Sotalol Hydrochloride [Betapace (Beta Dmitry)] 120 mg PO BID #120 tab Primary Care Physician: Jacques Pena Chi, MD [Primary Care Provider] - Please follow up with your Primary Care Physician in: 1 Week Test Results: Test results from this visit will be discussed in further detail at your follow-up appointment, if applicable. Please Follow Up With: Roque Lawrence MD When: Office to call for appt Proposed Discharge Date: 04/23/18
--- NOTE | 2018-04-23 11:23 | DCINST_ITS ---
You will use the following diet at home:: Cardiac Discharge Activity: Return to Normal Activity Call your doctor if you observe: Shortness of breath, Dizziness, Fainting spells , Chest pain Allergies/Adverse Reactions: Allergies hydrochlorothiazide Allergy (Severe, Verified 03/08/18 09:17) Severe itching rash ranolazine [From Ranexa] Adverse Reaction (Severe, Verified 03/08/18 09:17) Rash omeprazole Adverse Reaction (Verified 03/08/18 09:17) Unknown Phenothiazines Adverse Reaction (Verified 03/08/18 09:17) Unknown PHENEGRANZOLE Adverse Reaction (Uncoded 03/27/17 04:22) Unknown Medications to take at Discharge Aspirin E.C. [Ecotrin] 81 mg PO DAILY@0800 07/11/13 Folic Acid/Vit Bcomp,C [V-Crqncyf-Qof C Time Rel Tab] 400 mcg PO DAILY 07/11/13 Multivitamins,Ther W-Minerals [Multivitamin With Minerals] 1 tab PO DAILY Pantoprazole Sodium [Protonix] 40 mg PO DAILY 10/29/16 Fluticasone Propionate [Flovent Diskus] 50 mcg IH BID 03/27/17 nitroglycerin 0.4 mg sublingual tablet 0.4 mg SUBLINGUAL Q5-15M PRN 08/18/17 losartan 25 mg tablet 25 mg PO DAILY #90 tab 12/01/17 Clopidogrel Bisulfate [Plavix] 75 mg PO DAILY 04/20/18 Isosorbide Mononitrate [Imdur] 30 mg PO DAILY #30 tab 04/23/18 Sotalol Hydrochloride [Betapace (Beta Dmitry)] 120 mg PO BID #120 tab 04/23/18 The following prescriptions were given: Isosorbide Mononitrate [Imdur] 30 mg PO DAILY #30 tab Sotalol Hydrochloride [Betapace (Beta Dmitry)] 120 mg PO BID #120 tab Primary Care Physician: Jacques Pena Chi, MD [Primary Care Provider] - Please follow up with your Primary Care Physician in: 1 Week Test Results: Test results from this visit will be discussed in further detail at your follow- up appointment, if applicable. Please Follow Up With: Roque Lawrence MD When: Office to call for appt Proposed Discharge Date: 04/23/18
--- NOTE | 2018-04-23 11:24 | PCM.DC.SUM ---
<Amairani Álvarez - Last Filed: 04/23/18 11:34> Discharge Date and Diagnosis Date of Admission: 04/20/18 Date of Discharge: 04/23/18 - Primary Discharge Diagnosis 1. Acute NSTEMI 2. Intermittent nonsustained ventricular tachycardia - Secondary Discharge Diagnosis Chronic Problems (Last Reviewed 04/12/18 @ 11:49 by Jennifer Koehler) DDD (degenerative disc disease), lumbar (Chronic) Segmental and somatic dysfunction of pelvic region (Chronic) Segmental and somatic dysfunction of thoracic region (Chronic) Segmental and somatic dysfunction of lumbar region (Chronic) History of electrophysiologic study (Chronic) 09/11/2002 @ [facility] per Dr. Holt; and 05/19/[address] Madrigal [facility] History of left heart catheterization (Chronic) 03/05/2002;08/20/2002; 04/2004; May 2010; 11/18/2014 Old myocardial infarction (Chronic) Stented coronary artery (Chronic) Cutting balloon angiplasty of posterior ventricular branch of RCA and stenting of LAD 03/05/2002 @ [facility] per Dr. Murillo. DOUGLAS X 2 to proximal, and Mid to distal RCA 11/18/[address] Le @ [facility] Chronic systolic (congestive) heart failure (Chronic) Atherosclerotic heart disease of [place] coronary artery with other forms of angina pectoris (Chronic) Cutting balloon angiplasty of posterior ventricular branch of RCA and stenting of LAD 03/05/2002 @ [facility] per Dr. Murillo. DOUGLAS X 2 to proximal, and Mid to distal RCA 11/18/[address] Le @ [facility] Nonsustained ventricular tachycardia (Chronic) Palpitations (Chronic) Polycythemia (Chronic) AICD (automatic cardioverter/defibrillator) present (Chronic) Implanted 05/17/2010 GERD (gastroesophageal reflux disease) (Chronic) Hiatal hernia (Chronic) Cardiomyopathy, ischemic (Chronic) HLD (hyperlipidemia) (Chronic) HTN (hypertension) (Chronic) Carotid artery disease (Chronic) Hospital Course and Treatment Imaging Results: Diagnostic Data Chest X-Ray 04/20/18 14:19 IMPRESSION: There is a new small left pleural effusion. Electronically Signed: Tereza Quiles MD at 14:58 EDT , Service support , Dr. Lawrence- Cardiology Operations: None Procedures: Cardiac catheterization Summary of Care Provided: The patient is a 83 year old M admitted 04/20/2018 due to chest pain. 1. NSTEMI-EKG without acute changes. Cardiology consult during admission. Patient underwent cardiac catheterization which demonstrated left main coronary artery disease with 30% distal stenosis, left anterior descending artery with total mid segment occlusion, left circumflex artery which is nondominant with proximal 50% stenosis and mid 50-60% stenosis, dominant large right coronary artery with diffuse disease of approximately 30-50% stenosis, severe ventricular systolic dysfunction estimated EF 15-20%. Cardiology recommending repeating stress test in the near future as outpatient to ensure there is no lateral wall ischemia. At that time the decision was made whether to undergo high risk angioplasty of the circumflex artery lesion. Medical management in the meantime. Patient will continue aspirin, Plavix, statin, losartan. Initiated on isosorbide 30 mg once daily. Sotalol regimen increased to 120 mg twice daily. Follow-up with cardiology as scheduled. 2. Intermittent nonsustained ventricular tachycardia-electrolytes within normal limits. Sotalol increased to 120 mg twice daily. 3. CAD status post stents-continue aspirin, Plavix, statin. 4. Chronic systolic CHF-echocardiogram completed yesterday showed an EF of 20%, stage I diastolic dysfunction, no significant change compared to prior study. Continue losartan, sotalol regimen. No evidence of acute CHF exacerbation. 5. Ischemic cardiomyopathy status post AICD-ICD interrogated. No sustained ventricular tachyarrhythmia. Sotalol increased for nonsustained ventricular tachyarrhythmia as noted above. 6. Hypertension-stable, continue home regimen of losartan, sotalol. 7. Hyperlipidemia-continue statin. 8. GERD- continue PPI. 9. Hiatal hernia 10. DDD General: Alert, Oriented x3, Cooperative, No apparent distress HEENT: Atraumatic, PERRLA, EOMI, Normocephalic Neck: Supple, No JVD, Negative Carotid Bruits Lungs: Clear to auscultation, Normal air movement, - - Right chest AICD. Cardiovascular: Regular rate, Regular Rhythm, Normal S1, Normal S2, No murmurs Abdomen: Bowel Sounds Present, Soft, Non Tender, Non-Distended Extremities: No clubbing, No cyanosis, No edema, Capillary Refill Less than 3 Seconds Skin: No rashes, No breakdown Musculoskeletal: No Tenderness to Palpation of Joints or Extremities Neurological: Cranial nerves II-XII grossly intact, Neuro grossly intact Psych/Mental Status: Normal Affect, Appropriate Patient seen exam prior to discharge. Physical assessment as noted above. Patient stable for discharge home with the follow-up her conditions as noted above. This patient was seen by CHELSI Mueller under the supervision of Dr. Austin. Discharge Diet: Low fat/ Low Cholesterol Discharge Activity: Return to Normal Activity Call your doctor if you observe: Shortness of breath, Dizziness, Fainting spells, Chest pain Home Medications: Medications to take at Discharge Aspirin E.C. [Ecotrin] 81 mg PO DAILY@0800 07/11/13 Folic Acid/Vit Bcomp,C [M-Yebibxv-Dtu C Time Rel Tab] 400 mcg PO DAILY 07/11/13 Multivitamins,Ther W-Minerals [Multivitamin With Minerals] 1 tab PO DAILY 11/03/14 Pantoprazole Sodium [Protonix] 40 mg PO DAILY 10/29/16 Fluticasone Propionate [Flovent Diskus] 50 mcg IH BID 03/27/17 nitroglycerin 0.4 mg sublingual tablet 0.4 mg SUBLINGUAL Q5-15M PRN 08/18/17 losartan 25 mg tablet 25 mg PO DAILY #90 tab 12/01/17 Clopidogrel Bisulfate [Plavix] 75 mg PO DAILY 04/20/18 Isosorbide Mononitrate [Imdur] 30 mg PO DAILY #30 tab 04/23/18 Sotalol Hydrochloride [Betapace (Beta Dmitry)] 120 mg PO BID #120 tab 04/23/18 Following Prescrptions Were Given to Patient: Isosorbide Mononitrate [Imdur] 30 mg PO DAILY #30 tab Sotalol Hydrochloride [Betapace (Beta Dmitry)] 120 mg PO BID #120 tab Primary Care Physician: Jacques Pena Chi, MD [Primary Care Provider] - Please follow up with your Primary Care Physician in: 1 Week Please Follow Up With: Roque Lawrence MD When: Office to call for appt Disposition: Home Minutes spent on discharge:: 35 Patient Condition:: Stable Medical Necessity - Tobacco Use Smoking Status: Never smoker Meaningful Use Info Meaningful Use Diagnoses (Choose all that apply): None applicable <Jose M Austin - Last Filed: 04/23/18 14:04> Discharge Date and Diagnosis - Secondary Discharge Diagnosis Chronic Problems (Last Reviewed 04/12/18 @ 11:49 by Jennifer Koehler) DDD (degenerative disc disease), lumbar (Chronic) Segmental and somatic dysfunction of pelvic region (Chronic) Segmental and somatic dysfunction of thoracic region (Chronic) Segmental and somatic dysfunction of lumbar region (Chronic) History of electrophysiologic study (Chronic) 09/11/2002 @ [facility] per Dr. Holt; and 05/19/[address] Madrigal [facility] History of left heart catheterization (Chronic) 03/05/2002;08/20/2002; 04/2004; May 2010; 11/18/2014 Old myocardial infarction (Chronic) Stented coronary artery (Chronic) Cutting balloon angiplasty of posterior ventricular branch of RCA and stenting of LAD 03/05/2002 @ [facility] per Dr. Murillo. DOUGLAS X 2 to proximal, and Mid to distal RCA 11/18/[address] Le @ [facility] Chronic systolic (congestive) heart failure (Chronic) Atherosclerotic heart disease of [place] coronary artery with other forms of angina pectoris (Chronic) Cutting balloon angiplasty of posterior ventricular branch of RCA and stenting of LAD 03/05/2002 @ [facility] per Dr. Murillo. DOUGLAS X 2 to proximal, and Mid to distal RCA 11/18/[address] Le @ [facility] Nonsustained ventricular tachycardia (Chronic) Palpitations (Chronic) Polycythemia (Chronic) AICD (automatic cardioverter/defibrillator) present (Chronic) Implanted 05/17/2010 GERD (gastroesophageal reflux disease) (Chronic) Hiatal hernia (Chronic) Cardiomyopathy, ischemic (Chronic) HLD (hyperlipidemia) (Chronic) HTN (hypertension) (Chronic) Carotid artery disease (Chronic) Hospital Course and Treatment Operations: None Procedures: Cardiac catheterization Summary of Care Provided: Patient seen and examined independently. Data reviewed. I agree with the above note by the nurse practitioner. The patient is a 83 year old M resents with chest pain. Troponins went up over 1. Patient underwent a left heart catheterization that showed no significant stenosis. It showed an ejection fraction of 15-20%. Patient stated that he had a sharp chest pain radiating down his left arm. Patient did have a non-ST elevation myocardial infarction but nonobstructive coronary artery disease. Patient will continue with medical management. [] Discharge Diet: Low fat/ Low Cholesterol Discharge Activity: Return to Normal Activity Call your doctor if you observe: Shortness of breath, Dizziness, Fainting spells, Chest pain Meaningful Use Info Meaningful Use Diagnoses (Choose all that apply): AMI - AMI Aspirin given w/in 24hrs of arrival?: Yes ASA at discharge?: Yes Statins at discharge?: Yes Jorge Luis/ARB at discharge?: Yes Beta Dmitry at discharge?: Yes Done w/ Acute [place] measure.: Yes Code Visit Inpatient E&M: 43795 Disch Hosp
--- NOTE | 2018-04-23 11:30 | DS.PCM_ITS ---
<Amairani Álvarez - Last Filed: 04/23/18 11:34> Discharge Date and Diagnosis Date of Admission: 04/20/18 Date of Discharge: 04/23/18 - Primary Discharge Diagnosis 1. Acute NSTEMI 2. Intermittent nonsustained ventricular tachycardia - Secondary Discharge Diagnosis Chronic Problems (Last Reviewed 04/12/18 @ 11:49 by Jennifer Koehler) DDD (degenerative disc disease), lumbar (Chronic) Segmental and somatic dysfunction of pelvic region (Chronic) Segmental and somatic dysfunction of thoracic region (Chronic) Segmental and somatic dysfunction of lumbar region (Chronic) History of electrophysiologic study (Chronic) 09/11/2002 @ [facility] per Dr. Holt; and 05/19/[address] Madrigal [facility] History of left heart catheterization (Chronic) 03/05/2002;08/20/2002; 04/2004; May 2010; 11/18/2014 Old myocardial infarction (Chronic) Stented coronary artery (Chronic) Cutting balloon angiplasty of posterior ventricular branch of RCA and stenting of LAD 03/05/2002 @ [facility] per Dr. Murillo. DOUGLAS X 2 to proximal, and Mid to distal RCA 11/18/[address] Le @ [facility] Chronic systolic (congestive) heart failure (Chronic) Atherosclerotic heart disease of [place] coronary artery with other forms of angina pectoris (Chronic) Cutting balloon angiplasty of posterior ventricular branch of RCA and stenting of LAD 03/05/2002 @ [facility] per Dr. Murillo. DOUGLAS X 2 to proximal, and Mid to distal RCA 11/18/[address] Le @ [facility] Nonsustained ventricular tachycardia (Chronic) Palpitations (Chronic) Polycythemia (Chronic) AICD (automatic cardioverter/defibrillator) present (Chronic) Implanted 05/17/2010 GERD (gastroesophageal reflux disease) (Chronic) Hiatal hernia (Chronic) Cardiomyopathy, ischemic (Chronic) HLD (hyperlipidemia) (Chronic) HTN (hypertension) (Chronic) Carotid artery disease (Chronic) Hospital Course and Treatment Imaging Results: Diagnostic Data Chest X-Ray 04/20/18 14:19 IMPRESSION: There is a new small left pleural effusion. Electronically Signed: Tereza Quiles MD at 14:58 EDT , Service support , Dr. Lawrence- Cardiology Operations: None Procedures: Cardiac catheterization Summary of Care Provided: The patient is a 83 year old M admitted 04/20/2018 due to chest pain. 1. NSTEMI-EKG without acute changes. Cardiology consult during admission. Patient underwent cardiac catheterization which demonstrated left main coronary artery disease with 30% distal stenosis, left anterior descending artery with total mid segment occlusion, left circumflex artery which is nondominant with proximal 50% stenosis and mid 50-60% stenosis, dominant large right coronary artery with diffuse disease of approximately 30-50% stenosis, severe ventricular systolic dysfunction estimated EF 15-20%. Cardiology recommending repeating stress test in the near future as outpatient to ensure there is no lateral wall ischemia. At that time the decision was made whether to undergo high risk angioplasty of the circumflex artery lesion. Medical management in the meantime. Patient will continue aspirin, Plavix, statin, losartan. Initiated on isosorbide 30 mg once daily. Sotalol regimen increased to 120 mg twice daily. Follow-up with cardiology as scheduled. 2. Intermittent nonsustained ventricular tachycardia-electrolytes within normal limits. Sotalol increased to 120 mg twice daily. 3. CAD status post stents-continue aspirin, Plavix, statin. 4. Chronic systolic CHF-echocardiogram completed yesterday showed an EF of 20% , stage I diastolic dysfunction, no significant change compared to prior study. Continue losartan, sotalol regimen. No evidence of acute CHF exacerbation. 5. Ischemic cardiomyopathy status post AICD-ICD interrogated. No sustained ventricular tachyarrhythmia. Sotalol increased for nonsustained ventricular tachyarrhythmia as noted above. 6. Hypertension-stable, continue home regimen of losartan, sotalol. 7. Hyperlipidemia-continue statin. 8. GERD- continue PPI. 9. Hiatal hernia 10. DDD General: Alert, Oriented x3, Cooperative, No apparent distress HEENT: Atraumatic, PERRLA, EOMI, Normocephalic Neck: Supple, No JVD, Negative Carotid Bruits Lungs: Clear to auscultation, Normal air movement, - - Right chest AICD. Cardiovascular: Regular rate, Regular Rhythm, Normal S1, Normal S2, No murmurs Abdomen: Bowel Sounds Present, Soft, Non Tender, Non-Distended Extremities: No clubbing, No cyanosis, No edema, Capillary Refill Less than 3 Seconds Skin: No rashes, No breakdown Musculoskeletal: No Tenderness to Palpation of Joints or Extremities Neurological: Cranial nerves II-XII grossly intact, Neuro grossly intact Psych/Mental Status: Normal Affect, Appropriate Patient seen exam prior to discharge. Physical assessment as noted above. Patient stable for discharge home with the follow-up her conditions as noted above. This patient was seen by CHELSI Mueller under the supervision of Dr. Austin. Discharge Diet: Low fat/ Low Cholesterol Discharge Activity: Return to Normal Activity Call your doctor if you observe: Shortness of breath, Dizziness, Fainting spells , Chest pain Home Medications: Medications to take at Discharge Aspirin E.C. [Ecotrin] 81 mg PO DAILY@0800 07/11/13 Folic Acid/Vit Bcomp,C [F-Goatvef-Xbg C Time Rel Tab] 400 mcg PO DAILY 07/11/13 Multivitamins,Ther W-Minerals [Multivitamin With Minerals] 1 tab PO DAILY Pantoprazole Sodium [Protonix] 40 mg PO DAILY 10/29/16 Fluticasone Propionate [Flovent Diskus] 50 mcg IH BID 03/27/17 nitroglycerin 0.4 mg sublingual tablet 0.4 mg SUBLINGUAL Q5-15M PRN 08/18/17 losartan 25 mg tablet 25 mg PO DAILY #90 tab 12/01/17 Clopidogrel Bisulfate [Plavix] 75 mg PO DAILY 04/20/18 Isosorbide Mononitrate [Imdur] 30 mg PO DAILY #30 tab 04/23/18 Sotalol Hydrochloride [Betapace (Beta Dmitry)] 120 mg PO BID #120 tab 04/23/18 Following Prescrptions Were Given to Patient: Isosorbide Mononitrate [Imdur] 30 mg PO DAILY #30 tab Sotalol Hydrochloride [Betapace (Beta Dmitry)] 120 mg PO BID #120 tab Primary Care Physician: Jacques Pena Chi, MD [Primary Care Provider] - Please follow up with your Primary Care Physician in: 1 Week Please Follow Up With: Roque Lawrence MD When: Office to call for appt Disposition: Home Minutes spent on discharge:: 35 Patient Condition:: Stable Medical Necessity - Tobacco Use Smoking Status: Never smoker Meaningful Use Info Meaningful Use Diagnoses (Choose all that apply): None applicable <Jose M Austin - Last Filed: 04/23/18 14:04> Discharge Date and Diagnosis - Secondary Discharge Diagnosis Chronic Problems (Last Reviewed 04/12/18 @ 11:49 by Jennifer Koehler) DDD (degenerative disc disease), lumbar (Chronic) Segmental and somatic dysfunction of pelvic region (Chronic) Segmental and somatic dysfunction of thoracic region (Chronic) Segmental and somatic dysfunction of lumbar region (Chronic) History of electrophysiologic study (Chronic) 09/11/2002 @ [facility] per Dr. Holt; and 05/19/[address] Madrigal [facility] History of left heart catheterization (Chronic) 03/05/2002;08/20/2002; 04/2004; May 2010; 11/18/2014 Old myocardial infarction (Chronic) Stented coronary artery (Chronic) Cutting balloon angiplasty of posterior ventricular branch of RCA and stenting of LAD 03/05/2002 @ [facility] per Dr. Murillo. DOUGLAS X 2 to proximal, and Mid to distal RCA 11/18/[address] Le @ [facility] Chronic systolic (congestive) heart failure (Chronic) Atherosclerotic heart disease of [place] coronary artery with other forms of angina pectoris (Chronic) Cutting balloon angiplasty of posterior ventricular branch of RCA and stenting of LAD 03/05/2002 @ [facility] per Dr. Murillo. DOUGLAS X 2 to proximal, and Mid to distal RCA 11/18/[address] Le @ [facility] Nonsustained ventricular tachycardia (Chronic) Palpitations (Chronic) Polycythemia (Chronic) AICD (automatic cardioverter/defibrillator) present (Chronic) Implanted 05/17/2010 GERD (gastroesophageal reflux disease) (Chronic) Hiatal hernia (Chronic) Cardiomyopathy, ischemic (Chronic) HLD (hyperlipidemia) (Chronic) HTN (hypertension) (Chronic) Carotid artery disease (Chronic) Hospital Course and Treatment Operations: None Procedures: Cardiac catheterization Summary of Care Provided: Patient seen and examined independently. Data reviewed. I agree with the above note by the nurse practitioner. The patient is a 83 year old M resents with chest pain. Troponins went up over 1. Patient underwent a left heart catheterization that showed no significant stenosis. It showed an ejection fraction of 15-20%. Patient stated that he had a sharp chest pain radiating down his left arm. Patient did have a non-ST elevation myocardial infarction but nonobstructive coronary artery disease. Patient will continue with medical management. [] Discharge Diet: Low fat/ Low Cholesterol Discharge Activity: Return to Normal Activity Call your doctor if you observe: Shortness of breath, Dizziness, Fainting spells , Chest pain Meaningful Use Info Meaningful Use Diagnoses (Choose all that apply): AMI - AMI Aspirin given w/in 24hrs of arrival?: Yes ASA at discharge?: Yes Statins at discharge?: Yes Jorge Luis/ARB at discharge?: Yes Beta Dmitry at discharge?: Yes Done w/ Acute [place] measure.: Yes Code Visit Inpatient E&M: 05266 Disch Hosp
--- NOTE | 2018-04-23 13:09 | NURSING ---
Post cardiac/heart cath assessment and vitals charting completed by Jazzmine Fagan, student nurse. This nurse supervised vitals and assessment and checked the right groin cardiac cath site during each assessment. This nurse is in agreement with all charting associated with the post-cardiac cath/angio monitoring charting.
== END 2018-04-23 14:28 | disposition home or self-care (01) | DRG 281 ==
LOC: ED 16:01 → PCU 16:52
PROVIDERS: Internal Medicine Cardiovascular Disease; Nurse Practitioner Family; Admitting Provider Family Medicine; Emergency Provider Emergency Medicine; Family Provider Family Medicine Geriatric Medicine; PCP Family Medicine Geriatric Medicine
DX: I21.4 Non-ST elevation (NSTEMI) myocardial infarction (principal); I47.2 Ventricular tachycardia; I50.22 Chronic systolic (congestive) heart failure; I25.10 Atherosclerotic heart disease of native coronary artery without angina pectoris; M51.36 Other intervertebral disc degeneration, lumbar region; I25.2 Old myocardial infarction; Z95.5 Presence of coronary angioplasty implant and graft; I25.5 Ischemic cardiomyopathy; E78.5 Hyperlipidemia, unspecified; K21.9 Gastro-esophageal reflux disease without esophagitis; K44.9 Diaphragmatic hernia without obstruction or gangrene; Z95.810 Presence of automatic (implantable) cardiac defibrillator; I11.0 Hypertensive heart disease with heart failure
CPT/HCPCS: 0399T; 36415; 71045; 80048; 80061; 81002; 83735; 84484; 85025; 85027; 85610; 85730; 93005; 93306; 93458; 94060; 94640; 94726; 94729; 97802; 99152; 99153; 99284; J7030; Q9957; Q9967; A4216; C8929

== ENCOUNTER 2018-04-25 03:56 | Emergency (ER) | payer MEDICARE, OTHER, SELFPAY ==
[2018-04-25] VITALS (11 sets, daily range): BP systolic 105–161; BP diastolic 63–88; PULSE 60–79; RESP 13–18; TEMP 36.7–36.8; O2SAT 92–98; BMI 25.9
--- NOTE | 2018-04-25 03:58 | ED.RN ---
RN CALLED FOR EKG, PULLED OLD EKGS FOR
--- NOTE | 2018-04-25 04:19 | RAD_ITS ---
STUDY: X-RAY CHEST REASON FOR EXAM: Male, 83 years old. Chest pain TECHNIQUE: Single AP portable view of the chest. COMPARISON: 04/20/2018 FINDINGS: Right subclavian AICD device in place. No confluent airspace opacity. There is no demonstrated pleural abnormality. Mild cardiomegaly, unchanged. Normal mediastinum and agapito. Normal visualized pulmonary arteries. Normal visualized aortic arch and descending thoracic aorta. Normal visualized thoracic spine. Normal visualized ribs, clavicles, and shoulders. There is no demonstrated abnormality of the visualized soft tissue structures of the upper abdomen. RAD/Chest 1 View (Portable) IMPRESSION: No evidence of acute cardiopulmonary disease. Electronically Signed: Gurpreet Melchor MD at 4:49 EDT Tel , Service support ,
--- NOTE | 2018-04-25 04:19 | EKG12_ITS ---
Test Reason : REPEAT Blood Pressure : / mmHG Vent. Rate : 060 BPM Atrial Rate : 060 BPM P-R Int : 148 ms QRS Dur : 120 ms QT Int : 488 ms P-R-T Axes : -06 -36 106 degrees QTc Int : 488 ms Suspect unspecified pacemaker failure Normal sinus rhythm Left axis deviation Abnormal ECG Confirmed by JENNIFER ROCHA, JESSE ([id number]), acquisitions editor LAVINIA WEST ([id number] on 04/26/2018 1:28:25 PM Referred By: STEPHANY Confirmed By:JESSE RODRIGUEZ MD
[2018-04-25 04:32] LABS: Absolute Lymphocyte Count 1.65 X10^3/ul (0.83-4.51); Absolute Neutrophil Count 6.9 X10^3/uL (2.0-7.7); Basophil# 0.05 X10^3/uL; Basophil% 0.5 % (0-1); Eosinophil# 0.09 X10^3/uL; Eosinophils% 0.9 % (0-5); Hematocrit 44.9 % (40-54); Lymphocyte # 1.65 X10^3/ul (4.0); Mean Corp Hgb Conc 33.4 g/gl (32-36); Mean Corpuscular Hgb 31.7 pg (27.0-32.0); Mean Corpuscular Volume 94.9 fL (80-94); Mean Platelet Vol. 13.2 fl (6.2-12.0); Monocyte# 0.91 X10^3/uL; Monocyte% 9.4 % (0-10); Neutrophil # 6.92 X10^3/uL (2.7-7.7); Neutrophil % 71.6 % (47-70); Platelet Count 203 K/mm3 (150-450); RBC Distribution Width CV 14.1 % (11.6-14.6); RBC Distribution Width SD 48.8 fl (35.1-43.9); Red Blood Count 4.73 M/mm3 (4.6-6.2); White Blood Count 9.7 K/mm3 (4.4-11.0)
[2018-04-25 04:41] LABS: POSITIVE COUNT NO; POSITIVE DIFFERENTIAL NO; POSITIVE MORPHOLOGY NO
[2018-04-25] MEDS: Aspirin 81 MG TAB.CHEW 324 MG PO (04:42)
[2018-04-25 05:01] LABS: Anion Gap 8 (5-15); BUN 30 mg/dL (7-18); BUN/Creat Ratio 22.9 RATIO (10-20); Calcium,Total 9.3 mg/dL (8.5-10.1); Chloride 104 mmol/L (98-107); Creatinine, Serum 1.31 mg/dL (0.70-1.30); EST Glomerular Filtration Rate 56 mL/min (>60); Est Glom Filt Rate - Afr Amer 67 mL/min (>60); Estimated Creatinine Clearance 44.89 ml/min; Glucose 106 mg/dL (74-106); Potassium 4.2 mmol/L (3.5-5.1); Sodium Level 140 mmol/L (136-145)
--- NOTE | 2018-04-25 05:17 | ED.RN ---
lab called with critical lab results. trop 1.35. Dr. Walker made aware. no new orders given at this time
[2018-04-25] MEDS: Ondansetron 4 MG/2 ML Vial IV (05:29)
[2018-04-25] MEDS: Morphine 4 MG/ML Syringe IV (05:29)
--- NOTE | 2018-04-25 06:50 | EKG12_ITS ---
Test Reason : CP Blood Pressure : / mmHG Vent. Rate : 068 BPM Atrial Rate : 068 BPM P-R Int : 154 ms QRS Dur : 112 ms QT Int : 462 ms P-R-T Axes : 002 -42 056 degrees QTc Int : 491 ms Normal sinus rhythm Left axis deviation Moderate voltage criteria for LVH, may be normal variant Cannot rule out Septal infarct , age undetermined Possible Lateral infarct , age undetermined Abnormal ECG Confirmed by JENNIFER ROCHA, JESSE ([id number]), visual effects editor LAVINIA WEST ([id number]) on 04/26/2018 1:28:44 PM Referred By: STEPHANY Confirmed By:JESSE RODRIGUEZ MD
--- NOTE | 2018-04-25 06:50 | ED.DCSUM_ITS ---
- ER Visit Summary Date of Service: 04/25/18 Chief Complaint: Chest pain History of Present Illness: The patient is a 83 M who presents with chest pain. He has a history of coronary disease and prior stents hypertension hyperlipidemia. He was admitted recently for chest pain and a positive troponin. He underwent a heart catheterization which showed multivessel coronary disease including a mid complete LAD occlusion and a proximal circumflex lesion. Cardiology notes at that time noted that the plan was to perform stress testing to check for lateral ischemia and if positive refer the patient for high risk angioplasty. Patient states that after discharge she was doing well for the first day however over the last 9 hours he has had multiple episodes of left-sided chest pain which radiates down left arm lasting 15-20 minutes. He does describe this as sharp. At the time of my history he had no pain. His pain at the worst was 6 out of 10. He states that there was shortness of breath associated with these episodes of pain. He has also had some headaches. He states this is similar to when he initially presented. Physical Examination: Afebrile vitals are stable Moist mucous membranes Heart regular rate and rhythm Lungs are clear Abdomen soft Extremities nontender 2+ symmetric pulses Alert Test Results: EKG shows sinus rhythm at a rate of 68 with no acute ischemic changes. CBC unremarkable. BMP notable for creatinine 1.3 BUN of 30. Troponin is 1.35. Chest x-ray shows no acute process. Emergency Department Course and Treatment: Patient was given aspirin. He was given morphine and Zofran for pain. I spoke to Dr. Baldo Stone who is on-call for cardiology. Given that they had already planned on referring the patient for high risk angioplasty if stress testing was positive he recommended transfer to a tertiary care facility. I have attempted to contact multiple facilities including [facility], [facility], [place], [facility], [facility]. All of these facilities are full. I have contacted [facility] who did notify me that they have beds available. I am awaiting a call back from the hospitalist. Approximately 40 minutes later we checked in with [facility] again as we had not yet heard back from the hospitalist. At this point I am still awaiting a call back. Patient will need to be turned over to the oncoming physician. At this time he has remained stable. If [facility] cannot accept the patient silhouette is it stated that he could be put on a waiting list. Treatment Plan: [] Disposition: Plan is for transfer pending callback or acceptance from an outlying facility Impression: Chest pain Elevated troponin Coronary artery disease This note was generated with [employer] dictation software. It may contain incorrect words, spelling, and punctuation that were not noted in review of the chart prior to signing ED Disposition - Plan for ED Patient: Chief Complaint: Chest Pain Referrals: Jacques Pena Chi, MD [Primary Care Provider] -
--- NOTE | 2018-04-25 06:52 | NURSING ---
CALLED [facility] FOR TRANSFER. NEED DOC TO DOC . TRANSFER LINE SAID HOSPITALIST WILL WAIT TIL SHIFT CHANGE. DR HAMMOND AWARE.
--- NOTE | 2018-04-25 07:03 | NURSING ---
[facility]
--- NOTE | 2018-04-25 07:12 | NURSING ---
DR TRINA WAGNER FOR DR HAMMOND, FROM [facility]
--- NOTE | 2018-04-25 07:29 | NURSING ---
ACCEPTED AT [facility]. WAITING ON BED. CALLED [facility] AND CANCELLED TRANSFER.
--- NOTE | 2018-04-25 07:30 | ED.RN ---
lab resulted trop 1.19, physician aware
--- NOTE | 2018-04-25 09:03 | NURSING ---
CALLED [facility]. NO BED YET, PENDING DISCHARGES
--- NOTE | 2018-04-25 11:51 | NURSING ---
CALLED [facility], TALKED TO YESIAC. NO BED YET
--- NOTE | 2018-04-25 14:02 | NURSING ---
CALLED [facility], NO BED YET. THEY ARE AT [facility]
--- NOTE | 2018-04-25 14:50 | ED.RN ---
PT REQUESTED TO TAKE HOME MEDICATIONS DUE TO HAVEN'T HAD ANY TODAY DR. GARCIA STATED IT IS OKAY TO TAKE HOME MEDS AND PT'S WILL GO HOME AND BRING MEDS TO PT.
--- NOTE | 2018-04-25 15:38 | NURSING ---
[facility] CALLED. THEY HAVE A BED, BUT IT'S DIRTY. THEY WILL CALL BACK WITH THE NUMBER
--- NOTE | 2018-04-25 16:29 | NURSING ---
CALLED [facility]. TOLD ROOM IS STILL DIRTY.
--- NOTE | 2018-04-25 17:11 | NURSING ---
[place] [id number] ROOM 23 BED 1 NURSE TO NURSE [phone]
--- NOTE | 2018-04-25 17:23 | NURSING ---
CALLED [facility] FOR TRANSPORT. ETA IS 15 TO 20
== END 2018-04-25 18:00 | disposition short-term general hospital (02) ==
LOC: ED 04:25
PROVIDERS: Emergency Provider Emergency Medicine; Family Provider Family Medicine Geriatric Medicine; PCP Family Medicine Geriatric Medicine
DX: R07.9 Chest pain, unspecified (principal); I25.10 Atherosclerotic heart disease of native coronary artery without angina pectoris; R79.89 Other specified abnormal findings of blood chemistry; I10 Essential (primary) hypertension; E78.5 Hyperlipidemia, unspecified; I25.2 Old myocardial infarction; Z95.5 Presence of coronary angioplasty implant and graft; Z79.02 Long term (current) use of antithrombotics/antiplatelets; Z79.82 Long term (current) use of aspirin; Z79.899 Other long term (current) drug therapy
CPT/HCPCS: 71045; 80048; 84484; 85025; 93005; 96374; 96375; 99285; A4216; J2405

== ENCOUNTER → 2018-10-15 10:41 | Outpatient (CLI) | payer MEDICARE, OTHER, SELFPAY ==
[2018-09-13 10:02] VITALS: BMI 24.3
[2018-10-15 12:54] LABS: Absolute Lymphocyte Count 0.97 X10^3/ul (0.83-4.51); Absolute Neutrophil Count 4.9 X10^3/uL (2.0-7.7); Basophil# 0.04 X10^3/uL; Basophil% 0.6 % (0-1); Eosinophil# 0.19 X10^3/uL; Eosinophils% 2.9 % (0-5); Hematocrit 51.6 % (40-54); Hemoglobin 16.5 g/dl (13.0-16.5); Lymphocyte # 0.97 X10^3/ul (4.0); Lymphocyte % 14.6 % (19-41); Mean Corpuscular Hgb 30.1 pg (27.0-32.0); Mean Corpuscular Volume 94.2 fL (80-94); Mean Platelet Vol. 13.6 fl (6.2-12.0); Monocyte# 0.54 X10^3/uL; Monocyte% 8.1 % (0-10); Neutrophil # 4.87 X10^3/uL (2.7-7.7); Neutrophil % 73.5 % (47-70); Platelet Count 149 K/mm3 (150-450); Red Blood Count 5.48 M/mm3 (4.6-6.2); White Blood Count 6.6 K/mm3 (4.4-11.0)
[2018-10-15 12:56] LABS: POSITIVE COUNT NO; POSITIVE DIFFERENTIAL NO; POSITIVE MORPHOLOGY NO
[2018-10-15 13:09] LABS: Vitamin D,25 Hydroxy 22.9 ng/mL (29.95-100.01)
[2018-10-15 13:18] LABS: AST(SGOT) 24 U/L (15-37); Alanine Aminotransfer ALT/SGPT 26 U/L (16-61); Albumin, Serum 3.7 g/dL (3.2-5.0); Alkaline Phosphatase 77 U/L (45-117); Anion Gap 9 (5-15); BUN 18 mg/dL (7-18); BUN/Creat Ratio 14.3 RATIO (10-20); Calcium,Total 8.7 mg/dL (8.5-10.1); Chloride 103 mmol/L (98-107); Creatinine, Serum 1.26 mg/dL (0.70-1.30); EST Glomerular Filtration Rate 58 mL/min (>60); Est Glom Filt Rate - Afr Amer 70 mL/min (>60); Globulin 3.8 g/dL (2.2-4.2); Glucose 115 mg/dL (74-106); Potassium 4.2 mmol/L (3.5-5.1); Protein, Total 7.5 g/dL (6.4-8.2); Sodium Level 139 mmol/L (136-145)
== END ==
PROVIDERS: Family Provider Family Medicine Geriatric Medicine; PCP Family Medicine Geriatric Medicine; Visit Provider Family Medicine Geriatric Medicine
DX: E55.9 Vitamin D deficiency, unspecified (principal); I10 Essential (primary) hypertension; E23.6 Other disorders of pituitary gland
CPT/HCPCS: 36415; 80053; 82306; 84403; 84443; 85025

== ENCOUNTER → 2018-10-31 08:52 | Outpatient (CLI) | payer MEDICARE, OTHER, SELFPAY ==
[2018-10-23 09:36] VITALS: BMI 26.5
--- NOTE | 2018-10-31 08:53 | CDU_ITS ---
Reason For Study: Carotid stenosis Rt. Velocities/BP Lt. Velocities/BP Prox CCA 93.8/18.8 cm/sec. Prox CCA 118.0/28.3 cm/sec. Mid CCA 99.7/19.9 cm/sec. Mid CCA 108.0/25.1 cm/sec. Dist CCA 103.0/19.3 cm/sec. Dist CCA 75.6/17.6 cm/sec. Prox ICA 80.1/20.4 cm/sec. Prox ICA 130.0/22.6 cm/sec. Mid ICA 91.9/20.8 cm/sec. Mid ICA 146.0/45.6 cm/sec. Dist ICA 80.4/21.1 cm/sec. Dist ICA 144.0/43.2 cm/sec. Rt. ICA/CCA = .92. Lt. ICA/CCA = 1.4. Prox ECA 138.0/11.8 cm/sec. Prox ECA 175.0/19.6 cm/sec. Rt. Vert. 50.2/12.6 cm/sec. Lt. Vert. 46.0/11.4 cm/sec. Right Extracranial There is intimal thickening but no significant atherosclerotic plaque noted in the right common carotid artery. There is heterogeneous, irregular atherosclerotic plaque noted in the right internal carotid artery. There is heterogeneous, irregular atherosclerotic plaque noted in the right external carotid artery. Antegrade flow is noted in the right vertebral artery. Left Extracranial There is intimal thickening but no significant atherosclerotic plaque noted in the left common carotid artery. There is heterogeneous, irregular atherosclerotic plaque noted in the left internal carotid artery. There is heterogeneous, irregular atherosclerotic plaque noted in the left external carotid artery. Antegrade flow is noted in the left vertebral artery. Procedure Carotid Duplex [id number]. Exam performed in department. Interpretation Summary Mild (<50%) stenosis right extracranial internal carotid. Moderate (50-69%) stenosis left extracranial internal carotid. Flow within the vertebral arteries is antegrade bilaterally. Ordering Physician: Allegra Perez Referring Physician: Allegra Perez Performed By: Aimee Cazares RVT
== END ==
PROVIDERS: Family Provider Family Medicine Geriatric Medicine; PCP Family Medicine Geriatric Medicine; Referring Provider Physician Assistant Medical; Visit Provider Physician Assistant Medical
DX: R42 Dizziness and giddiness (principal)
CPT/HCPCS: 93880

== ENCOUNTER → 2019-01-21 | Outpatient (CLI) | payer MEDICARE, OTHER, SELFPAY ==
[2018-12-18 07:36] VITALS: BMI 26.6
--- NOTE | 2019-01-21 10:40 | RAD_ITS ---
STUDY: X-RAY CHEST REASON FOR EXAM: Male, 83 years old. Chest tightness. Cough. TECHNIQUE: PA and lateral views of the chest. COMPARISON: Comparison is made with prior study April 25, 2018. FINDINGS: Stable mild elevation of the right hemidiaphragm. Stable mild increased markings at the lung bases suggestive of scarring. There is no demonstrated pleural abnormality. There is mild cardiac enlargement. A right-sided dual-chamber pacemaker is seen. Normal mediastinum and agapito. Normal visualized pulmonary arteries. There is atherosclerotic tortuosity of the aortic arch and descending thoracic aorta. There is demineralization of the osseous structures. Normal visualized ribs, clavicles, and shoulders. There is no demonstrated abnormality of the visualized soft tissue structures of the upper abdomen. RAD/Chest PA and Lateral IMPRESSION: No acute abnormality is seen. Electronically Signed: Xander Flynn, at 11:00 EDT , Service support ,
== END | disposition home or self-care (01) ==
LOC: RAD 10:38
PROVIDERS: Family Provider Family Medicine Geriatric Medicine; PCP Family Medicine Geriatric Medicine; Referring Provider Family Medicine Geriatric Medicine; Visit Provider Family Medicine Geriatric Medicine
DX: R06.02 Shortness of breath (principal); R68.83 Chills (without fever)
CPT/HCPCS: 71046; 87633

== ENCOUNTER → 2019-01-29 | Outpatient (CLI) | payer MEDICARE, OTHER, SELFPAY ==
[2018-12-18 07:36] VITALS: BMI 26.6
[2019-01-29 12:43] LABS: Absolute Neutrophil Count 8.7 X10^3/uL (2.0-7.7); Basophil# 0.01 X10^3/uL; Basophil% 0.1 % (0-1); Eosinophil# 0.09 X10^3/uL; Eosinophils% 0.8 % (0-5); Hematocrit 53.4 % (40-54); Hemoglobin 17.7 g/dl (13.0-16.5); Lymphocyte % 9.8 % (19-41); Mean Corp Hgb Conc 33.1 g/gl (32-36); Mean Corpuscular Hgb 29.7 pg (27.0-32.0); Mean Corpuscular Volume 89.7 fL (80-94); Mean Platelet Vol. 13.1 fl (6.2-12.0); Monocyte# 1.05 X10^3/uL; Monocyte% 9.4 % (0-10); Neutrophil # 8.73 X10^3/uL (2.7-7.7); Neutrophil % 78.2 % (47-70); Platelet Count 170 K/mm3 (150-450); RBC Distribution Width CV 16.4 % (11.6-14.6); RBC Distribution Width SD 53.5 fl (35.1-43.9); Red Blood Count 5.95 M/mm3 (4.6-6.2); White Blood Count 11.2 K/mm3 (4.4-11.0)
[2019-01-29 12:45] LABS: POSITIVE COUNT NO; POSITIVE DIFFERENTIAL NO; POSITIVE MORPHOLOGY NO
[2019-01-29 12:52] LABS: Anion Gap 10 (5-15); BUN 29 mg/dL (7-18); BUN/Creat Ratio 24.2 RATIO (10-20); Calcium,Total 9.1 mg/dL (8.5-10.1); Chloride 103 mmol/L (98-107); EST Glomerular Filtration Rate 62 mL/min (>60); Est Glom Filt Rate - Afr Amer 74 mL/min (>60); Glucose 91 mg/dL (74-106); Potassium 4.5 mmol/L (3.5-5.1); Sodium Level 139 mmol/L (136-145)
== END | disposition home or self-care (01) ==
LOC: POLAB3 10:28
PROVIDERS: Family Provider Family Medicine Geriatric Medicine; PCP Family Medicine Geriatric Medicine; Visit Provider Family Medicine Geriatric Medicine
DX: I50.9 Heart failure, unspecified (principal)
CPT/HCPCS: 36415; 80048; 85025

== ENCOUNTER → 2019-02-05 | Outpatient (CLI) | payer MEDICARE, OTHER, SELFPAY ==
[2018-12-18 07:36] VITALS: BMI 26.6
--- NOTE | 2019-02-05 10:47 | RAD_ITS ---
STUDY: X-RAY - ABDOMEN/PELVIS REASON FOR EXAM: Male, 83 years old. Constipation and loss of appetite TECHNIQUE: Flat and upright COMPARISON: December 15, 2017 FINDINGS: Normal visualized lung bases. There is an unremarkable bowel gas pattern. There is no demonstrated free abdominal air. The visualized liver, spleen and kidneys are grossly normal in size and morphology. There is a left renal calculus measuring 1.68 x 1.4 cm. Lumbar spine demonstrates scoliosis and degenerative change No significant change since prior exam RAD/Abd Inc Decub and/or Erect IMPRESSION: Left nephrolithiasis. No acute abnormality Electronically Signed: Ken Gaytan MD at 17:00 EDT , Service support ,
[2019-02-05 12:58] LABS: Anion Gap 4 (5-15); BUN 29 mg/dL (7-18); BUN/Creat Ratio 23.8 RATIO (10-20); Chloride 103 mmol/L (98-107); Creatinine, Serum 1.22 mg/dL (0.70-1.30); EST Glomerular Filtration Rate 60 mL/min (>60); Est Glom Filt Rate - Afr Amer 73 mL/min (>60); Glucose 114 mg/dL (74-106); Potassium 4.2 mmol/L (3.5-5.1); Sodium Level 136 mmol/L (136-145)
== END | disposition home or self-care (01) ==
LOC: POLAB3 10:37 → RAD 10:46
PROVIDERS: Family Provider Family Medicine Geriatric Medicine; PCP Family Medicine Geriatric Medicine; Referring Provider Family Medicine Geriatric Medicine; Visit Provider Family Medicine Geriatric Medicine
DX: K56.41 Fecal impaction (principal); N18.3 Chronic kidney disease, stage 3 (moderate)
CPT/HCPCS: 36415; 74019; 80048

== ENCOUNTER → 2019-02-12 | Outpatient (CLI) | payer MEDICARE, OTHER, SELFPAY ==
[2018-12-18 07:36] VITALS: BMI 26.6
[2019-02-12 12:50] LABS: Anion Gap 4 (5-15); BUN 26 mg/dL (7-18); BUN/Creat Ratio 22.4 RATIO (10-20); Calcium,Total 9.2 mg/dL (8.5-10.1); Chloride 103 mmol/L (98-107); Creatinine, Serum 1.16 mg/dL (0.70-1.30); EST Glomerular Filtration Rate 64 mL/min (>60); Est Glom Filt Rate - Afr Amer 77 mL/min (>60); Glucose 120 mg/dL (74-106); Potassium 4.5 mmol/L (3.5-5.1); Sodium Level 138 mmol/L (136-145)
== END | disposition home or self-care (01) ==
LOC: POLAB3 10:44
PROVIDERS: PCP Family Medicine Geriatric Medicine; Visit Provider Family Medicine Geriatric Medicine
DX: N18.3 Chronic kidney disease, stage 3 (moderate) (principal)
CPT/HCPCS: 36415; 80048

== ENCOUNTER → 2019-02-26 | Outpatient (CLI) | payer MEDICARE, OTHER, SELFPAY ==
[2018-12-18 07:36] VITALS: BMI 26.6
[2019-02-26 13:03] LABS: Anion Gap 7 (5-15); BUN 22 mg/dL (7-18); BUN/Creat Ratio 20.4 RATIO (10-20); Calcium,Total 9.1 mg/dL (8.5-10.1); Chloride 104 mmol/L (98-107); Creatinine, Serum 1.08 mg/dL (0.70-1.30); EST Glomerular Filtration Rate 69 mL/min (>60); Est Glom Filt Rate - Afr Amer 84 mL/min (>60); Glucose 97 mg/dL (74-106); Potassium 3.8 mmol/L (3.5-5.1); Sodium Level 140 mmol/L (136-145)
== END | disposition home or self-care (01) ==
LOC: POLAB3 10:50
PROVIDERS: Family Provider Family Medicine Geriatric Medicine; PCP Family Medicine Geriatric Medicine; Visit Provider Family Medicine Geriatric Medicine
DX: N18.3 Chronic kidney disease, stage 3 (moderate) (principal)
CPT/HCPCS: 36415; 80048

== ENCOUNTER 2019-03-01 10:40 | Emergency (ER) | payer MEDICARE, OTHER, SELFPAY ==
[2018-12-18 07:36] VITALS: BMI 26.6
[2019-03-01 10:41] VITALS: BP 90/60; PULSE 91; RESP 20; TEMP 36.6; O2SAT 88; BMI 25.9
[2019-03-01 10:46] VITALS: BP 108/58; PULSE 85; RESP 20; O2SAT 94
[2019-03-01] MEDS: 0.9% Normal Saline 1,000 ML 1000 ML IV (11:11)
[2019-03-01] MEDS: Ondansetron 4 MG/2 ML Vial IV (11:11)
[2019-03-01 11:13] LABS: Absolute Lymphocyte Count 0.51 X10^3/uL (0.83-4.51); Basophil# 0.01 X10^3/uL; Basophil% 0.1 % (0-1); Eosinophil# 0.02 X10^3/uL; Eosinophils% 0.2 % (0-5); Hematocrit 43.4 % (40-54); Hemoglobin 14.5 g/dL (13.0-16.5); Lymphocyte # 0.51 X10^3/ul (4.0); Mean Corp Hgb Conc 33.4 g/dL (32-36); Mean Corpuscular Hgb 30.7 pg (27.0-32.0); Mean Corpuscular Volume 91.8 fL (80-94); Mean Platelet Vol. 12.2 fl (6.2-12.0); Monocyte# 0.33 X10^3/uL; Monocyte% 2.6 % (0-10); NRBC Flagged by Analyzer 0 % (0-5); Neutrophil # 11.98 X10^3/uL (2.7-7.7); Neutrophil % 92.7 % (47-70); POSITIVE DIFFERENTIAL YES; Platelet Count 137 K/mm3 (150-450); RBC Distribution Width CV 14.3 % (11.6-14.6); RBC Distribution Width SD 48.1 fl (35.1-43.9); Red Blood Count 4.73 M/mm3 (4.6-6.2); White Blood Count 12.9 K/mm3 (4.4-11.0)
[2019-03-01 11:17] LABS: Differential Indicated SCAN CRITERIA MET
[2019-03-01 11:23] LABS: AST(SGOT) 14 U/L (15-37); Alanine Aminotransfer ALT/SGPT 16 U/L (16-61); Albumin, Serum 3.2 g/dL (3.2-5.0); Alkaline Phosphatase 63 U/L (45-117); Anion Gap 7 (5-15); BUN 21 mg/dL (7-18); BUN/Creat Ratio 18.1 RATIO (10-20); Bilirubin, Direct 0.26 mg/dL (0.00-0.30); Calcium,Total 8.7 mg/dL (8.5-10.1); Chloride 107 mmol/L (98-107); Creatinine, Serum 1.16 mg/dL (0.70-1.30); EST Glomerular Filtration Rate 64 mL/min (>60); Est Glom Filt Rate - Afr Amer 77 mL/min (>60); Estimated Creatinine Clearance 50.69 ml/min; Globulin 2.9 g/dL (2.2-4.2); Glucose 131 mg/dL (74-106); Lipase 65 U/L (73-393); Protein, Total 6.1 g/dL (6.4-8.2); Sodium Level 144 mmol/L (136-145)
[2019-03-01 12:48] VITALS: BP 96/44; PULSE 79; RESP 21; O2SAT 93
[2019-03-01 13:10] VITALS: BP 103/48; BP 103/58; BP 92/79; PULSE 77; PULSE 83; PULSE 93
[2019-03-01 14:21] VITALS: BP 91/51; PULSE 87; RESP 20; O2SAT 97
[2019-03-01] MEDS: 0.9% Normal Saline 1,000 ML 999 ML IV (14:27)
--- NOTE | 2019-03-01 14:52 | ED.VISSUMM ---
- ER Visit Summary Date of Service: 03/01/19 Chief Complaint: Vomiting and diarrhea History of Present Illness: The patient is a 83 M who presents the emergency department with vomiting diarrhea. This started this morning. He notes decreased p.o. for the past couple days. States he has been more fatigued ever since he has been adjusting his cardiology medicines. He wonders if this is contributing to his illness today. Physical Examination: Afebrile Gen: Well-nourished well-developed Head: Normocephalic atraumatic Eyes: Perrl EOMI ENT: TMs clear no rhinorrhea moist mucous membranes Neck: Supple no lymphadenopathy no JVD nontender CVS: Regular rate rhythm no murmurs normal S1-S2 Respiratory: No distress clear to auscultation bilaterally chest nontender Abdomen: Soft nontender nondistended normal bowel sounds no masses Back: Nontender Extremity: Nontender no edema Skin: Appears pale no rash Neuro: alert orientated ?3 CN II-XII intact normal strength sensation Psych: Normal affect normal mood Test Results: Basic labs showed a white count 12.9. Glucose 131 BUN 21 normal creatinine. Emergency Department Course and Treatment: The patient received IV fluids and Zofran. Repeat examination his color sniffily improved and he feels much better. His orthostatics are negative he is able to drink water and we given him crackers. I will write for Zofran at home. Follow-up with his doctors. Impression: 1. Acute gastroenteritis This note was generated with [employer] dictation software. It may contain incorrect words, spelling, and punctuation that were not noted in review of the chart prior to signing ED Disposition - Plan for ED Patient: Disposition: Home or Assisted Living Instructions: GASTROENTERITIS, Viral (7y-Adult) Prescriptions: Ondansetron [Zofran Odt] 4 mg PO Q6H PRN PRN #14 tab PRN Reason: Nausea Transmission Status: Pending to [id number] Referrals: Jacques Pena Chi, MD [Primary Care Provider] - 3-5 Days if not improving
[2019-03-01 15:29] VITALS: BP 115/49; PULSE 79; RESP 18; O2SAT 93
== END 2019-03-01 15:36 | disposition home or self-care (01) ==
PROVIDERS: Emergency Provider Emergency Medicine; Family Provider Family Medicine Geriatric Medicine; PCP Family Medicine Geriatric Medicine
DX: K52.9 Noninfective gastroenteritis and colitis, unspecified (principal); I25.10 Atherosclerotic heart disease of native coronary artery without angina pectoris; I25.2 Old myocardial infarction; I11.0 Hypertensive heart disease with heart failure; I50.9 Heart failure, unspecified
CPT/HCPCS: 80048; 80076; 83690; 85025; 99285; J7030; A4216; J2405

== ENCOUNTER → 2019-03-05 | Outpatient (CLI) | payer MEDICARE, OTHER, SELFPAY ==
[2019-03-01 10:41] VITALS: BMI 25.9
--- NOTE | 2019-03-05 12:47 | RAD_ITS ---
STUDY: X-RAY CHEST REASON FOR EXAM: Male, 83 years old. Tightness in the chest for several days. TECHNIQUE: PA and lateral views of the chest. COMPARISON: January 21, 2019. FINDINGS: Minimal atelectatic changes at the right lung base. Lungs are otherwise clear. There is no demonstrated pleural abnormality. Normal size heart. The right-sided cardiac pacemaker unchanged from prior study. Normal mediastinum and agapito. Normal visualized pulmonary arteries. Normal visualized aortic arch and descending thoracic aorta. There are diffuse degenerative changes of the visualized thoracic spine. Normal visualized ribs, clavicles, and shoulders. There is no demonstrated abnormality of the visualized soft tissue structures of the upper abdomen. RAD/Chest PA and Lateral IMPRESSION: No marked interval change when compared to the prior study. Electronically Signed: Estuardo Cruz DO at 23:24 EDT Tel [phone], Service support ,
== END | disposition home or self-care (01) ==
LOC: PSN 12:42
PROVIDERS: Family Provider Family Medicine Geriatric Medicine; PCP Family Medicine Geriatric Medicine; Referring Provider Family Medicine Geriatric Medicine; Visit Provider Family Medicine Geriatric Medicine
DX: I50.9 Heart failure, unspecified (principal); R68.83 Chills (without fever)
CPT/HCPCS: 71046; 87633

== ENCOUNTER → 2019-03-11 | Outpatient (CLI) | payer MEDICARE, OTHER, SELFPAY ==
[2019-03-01 10:41] VITALS: BMI 25.9
--- NOTE | 2019-03-11 14:55 | RAD_ITS ---
STUDY: X-RAY CHEST REASON FOR EXAM: Male, 83 years old. Weight loss TECHNIQUE: PA and lateral views of the chest. COMPARISON: None. FINDINGS: Right chest wall pacing device The lungs are clear and expanded. There is no demonstrated pleural abnormality. There is mild cardiac enlargement. Normal mediastinum and agapito. Normal visualized pulmonary arteries. Normal visualized aortic arch and descending thoracic aorta. Normal visualized thoracic spine. Normal visualized ribs, clavicles, and shoulders. There is no demonstrated abnormality of the visualized soft tissue structures of the upper abdomen. RAD/Chest PA and Lateral IMPRESSION: No acute cardiopulmonary disease Electronically Signed: Tobin Felix DO at 18:40 EDT Tel , Service support ,
--- NOTE | 2019-03-11 15:05 | RAD_ITS ---
STUDY: X-RAY - ABDOMEN/PELVIS REASON FOR EXAM: Male, 83 years old. Constipation with fecal impaction TECHNIQUE: AP supine and upright views of the abdomen and pelvis. COMPARISON: None. FINDINGS: Normal visualized lung bases. There is an abundance of fecal material throughout the colon. There is no demonstrated free abdominal air. The visualized liver, spleen and kidneys are grossly normal in size and morphology. Calcific density in the region of the left renal shadow compatible with stone measuring 1.8 x 1.5 cm. Normal soft tissue structures. There are diffuse degenerative changes of the visualized lumbar spine. RAD/Abd Inc Decub and/or Erect IMPRESSION: Abundant constipation/fecal retention. Large left renal stone Electronically Signed: Tobin Felix DO at 18:41 EDT Tel , Service support ,
[2019-03-11 16:14] LABS: Absolute Neutrophil Count 7.4 X10^3/uL (2.0-7.7); Basophil# 0.07 X10^3/uL; Basophil% 0.7 % (0-1); Eosinophil# 0.11 X10^3/uL; Eosinophils% 1.1 % (0-5); Hematocrit 43.9 % (40-54); Hemoglobin 14.4 g/dL (13.0-16.5); Lymphocyte % 13.2 % (19-41); Mean Corp Hgb Conc 32.8 g/dL (32-36); Mean Corpuscular Hgb 30.1 pg (27.0-32.0); Mean Corpuscular Volume 91.6 fL (80-94); Mean Platelet Vol. 12.2 fl (6.2-12.0); Monocyte# 0.63 X10^3/uL; Monocyte% 6.4 % (0-10); NRBC Flagged by Analyzer 0 % (0-5); Neutrophil # 7.36 X10^3/uL (2.7-7.7); Neutrophil % 74.9 % (47-70); Platelet Count 231 K/mm3 (150-450); RBC Distribution Width CV 14.9 % (11.6-14.6); RBC Distribution Width SD 49.4 fl (35.1-43.9); Red Blood Count 4.79 M/mm3 (4.6-6.2); White Blood Count 9.8 K/mm3 (4.4-11.0)
[2019-03-11 16:37] LABS: AST(SGOT) 13 U/L (15-37); Alanine Aminotransfer ALT/SGPT 26 U/L (16-61); Albumin, Serum 3.4 g/dL (3.2-5.0); Alkaline Phosphatase 68 U/L (45-117); Anion Gap 8 (5-15); BUN 29 mg/dL (7-18); BUN/Creat Ratio 27.1 RATIO (10-20); Chloride 105 mmol/L (98-107); Creatinine, Serum 1.07 mg/dL (0.70-1.30); EST Glomerular Filtration Rate 70 mL/min (>60); Est Glom Filt Rate - Afr Amer 85 mL/min (>60); Globulin 3.3 g/dL (2.2-4.2); Glucose 118 mg/dL (74-106); PSA,Total - Annual Screen 1.91 ng/mL (0.00-4.00); Potassium 4.1 mmol/L (3.5-5.1); Protein, Total 6.7 g/dL (6.4-8.2); Sodium Level 141 mmol/L (136-145); Thyroid Stim Hormone (TSH) 0.76 uIU/mL (0.358-3.74)
== END | disposition home or self-care (01) ==
LOC: POLAB3 13:38 → RAD 14:52
PROVIDERS: Family Provider Family Medicine Geriatric Medicine; PCP Family Medicine Geriatric Medicine; Referring Provider Family Medicine Geriatric Medicine; Visit Provider Family Medicine Geriatric Medicine
DX: K56.41 Fecal impaction (principal); R63.8 Other symptoms and signs concerning food and fluid intake; R53.83 Other fatigue
CPT/HCPCS: 36415; 71046; 74019; 80053; 84153; 84443; 85025; G0103

== ENCOUNTER → 2019-04-15 | Outpatient (CLI) | payer MEDICARE, OTHER, SELFPAY ==
[2019-04-15 11:58] LABS: Absolute Lymphocyte Count 1.09 X10^3/uL (0.83-4.51); Absolute Neutrophil Count 4.1 X10^3/uL (2.0-7.7); Basophil# 0.04 X10^3/uL; Basophil% 0.6 % (0-1); Eosinophil# 0.75 X10^3/uL; Eosinophils% 11.7 % (0-5); Hematocrit 37.6 % (40-54); Hemoglobin 12.3 g/dL (13.0-16.5); Lymphocyte # 1.09 X10^3/ul (4.0); Mean Corp Hgb Conc 32.7 g/dL (32-36); Mean Corpuscular Hgb 30.7 pg (27.0-32.0); Mean Corpuscular Volume 93.8 fL (80-94); Mean Platelet Vol. 12.6 fl (6.2-12.0); Monocyte% 6.2 % (0-10); NRBC Flagged by Analyzer 0 % (0-5); Neutrophil # 4.06 X10^3/uL (2.7-7.7); Neutrophil % 63.3 % (47-70); Platelet Count 176 K/mm3 (150-450); RBC Distribution Width CV 15.9 % (11.6-14.6); RBC Distribution Width SD 54.7 fl (35.1-43.9); Red Blood Count 4.01 M/mm3 (4.6-6.2); White Blood Count 6.4 K/mm3 (4.4-11.0)
[2019-04-15 12:20] LABS: Vitamin D,25 Hydroxy 29.4 ng/mL (29.95-100.01)
[2019-04-15 12:26] LABS: AST(SGOT) 20 U/L (15-37); Alanine Aminotransfer ALT/SGPT 21 U/L (16-61); Albumin, Serum 3.5 g/dL (3.2-5.0); Alkaline Phosphatase 72 U/L (45-117); Anion Gap 5 (5-15); BUN 18 mg/dL (7-18); BUN/Creat Ratio 17.6 RATIO (10-20); Chloride 105 mmol/L (98-107); Creatinine, Serum 1.02 mg/dL (0.70-1.30); EST Glomerular Filtration Rate 74 mL/min (>60); Est Glom Filt Rate - Afr Amer 90 mL/min (>60); Globulin 3.4 g/dL (2.2-4.2); Glucose 128 mg/dL (74-106); Protein, Total 6.9 g/dL (6.4-8.2); Sodium Level 141 mmol/L (136-145); Thyroid Stim Hormone (TSH) 1.08 uIU/mL (0.358-3.74)
== END | disposition home or self-care (01) ==
LOC: POLAB3 10:00
PROVIDERS: Family Provider Family Medicine Geriatric Medicine; PCP Family Medicine Geriatric Medicine; Visit Provider Family Medicine Geriatric Medicine
DX: E55.9 Vitamin D deficiency, unspecified (principal); F52.8 Other sexual dysfunction not due to a substance or known physiological condition; I10 Essential (primary) hypertension
CPT/HCPCS: 36415; 80053; 82306; 84403; 84443; 85025

== ENCOUNTER → 2019-07-12 10:51 | Outpatient (CLI) | payer MEDICARE, OTHER, SELFPAY ==
[2019-07-12 10:42] VITALS: BMI 25.2
[2019-07-12 11:55] LABS: BNP,B-Type NATRIURETIC PEPTIDE 136.6 pg/mL (0-100)
== END ==
PROVIDERS: Family Provider Family Medicine Geriatric Medicine; PCP Family Medicine Geriatric Medicine; Referring Provider Internal Medicine Cardiovascular Disease; Visit Provider Internal Medicine Cardiovascular Disease
DX: R06.00 Dyspnea, unspecified (principal); I11.0 Hypertensive heart disease with heart failure; I50.22 Chronic systolic (congestive) heart failure; I25.119 Atherosclerotic heart disease of native coronary artery with unspecified angina pectoris; I25.5 Ischemic cardiomyopathy
CPT/HCPCS: 36415; 83880

== ENCOUNTER → 2019-07-15 10:53 | Outpatient (CLI) | payer MEDICARE, OTHER, SELFPAY ==
[2019-07-12 10:42] VITALS: BMI 25.2
[2019-07-15 12:34] LABS: Absolute Lymphocyte Count 0.84 X10^3/uL (0.83-4.51); Absolute Neutrophil Count 4.1 X10^3/uL (2.0-7.7); Basophil# 0.05 X10^3/uL; Basophil% 0.9 % (0-1); Eosinophil# 0.13 X10^3/uL; Eosinophils% 2.3 % (0-5); Hematocrit 39.1 % (40-54); Hemoglobin 12.7 g/dL (13.0-16.5); Lymphocyte # 0.84 X10^3/ul (4.0); Lymphocyte % 14.8 % (19-41); Mean Corp Hgb Conc 32.5 g/dL (32-36); Mean Corpuscular Hgb 30.7 pg (27.0-32.0); Mean Corpuscular Volume 94.4 fL (80-94); Mean Platelet Vol. 13.6 fl (6.2-12.0); Monocyte# 0.48 X10^3/uL; Monocyte% 8.5 % (0-10); NRBC Flagged by Analyzer 0 % (0-5); Neutrophil # 4.12 X10^3/uL (2.7-7.7); Neutrophil % 72.8 % (47-70); Platelet Count 166 K/mm3 (150-450); RBC Distribution Width CV 13.3 % (11.6-14.6); RBC Distribution Width SD 45.9 fl (35.1-43.9); Red Blood Count 4.14 M/mm3 (4.6-6.2); White Blood Count 5.7 K/mm3 (4.4-11.0)
[2019-07-15 12:53] LABS: Vitamin D,25 Hydroxy 27.6 ng/mL (29.95-100.01)
[2019-07-15 13:08] LABS: ALB/GLOB Ratio 1.1 RATIO (0.9-2.4); AST(SGOT) 18 U/L (15-37); Alanine Aminotransfer ALT/SGPT 20 U/L (16-61); Albumin, Serum 3.5 g/dL (3.2-5.0); Alkaline Phosphatase 70 U/L (45-117); Anion Gap 4 (5-15); BUN 20 mg/dL (7-18); BUN/Creat Ratio 19.4 RATIO (10-20); Chloride 106 mmol/L (98-107); Creatinine, Serum 1.03 mg/dL (0.70-1.30); EST Glomerular Filtration Rate 73 mL/min (>60); Est Glom Filt Rate - Afr Amer 89 mL/min (>60); Globulin 3.2 g/dL (2.2-4.2); Glucose 103 mg/dL (74-106); Protein, Total 6.7 g/dL (6.4-8.2); Sodium Level 140 mmol/L (136-145); Thyroid Stim Hormone (TSH) 1.27 uIU/mL (0.358-3.74)
== END ==
PROVIDERS: Family Provider Family Medicine Geriatric Medicine; PCP Family Medicine Geriatric Medicine; Visit Provider Family Medicine Geriatric Medicine
DX: E55.9 Vitamin D deficiency, unspecified (principal); F52.8 Other sexual dysfunction not due to a substance or known physiological condition; I10 Essential (primary) hypertension
CPT/HCPCS: 36415; 80053; 82306; 84403; 84443; 85025

== ENCOUNTER → 2019-08-05 10:42 | Outpatient (CLI) | payer MEDICARE, OTHER, SELFPAY ==
[2019-07-12 10:42] VITALS: BMI 25.2
--- NOTE | 2019-08-05 11:03 | RAD_ITS ---
STUDY: X-RAY CHEST REASON FOR EXAM: Male, 84 years old. Shortness of breath. TECHNIQUE: PA and lateral views of the chest. COMPARISON: March 11, 2019. FINDINGS: The lungs are clear and expanded. There is no demonstrated pleural abnormality. Normal size heart. Stable cardiac pacemaker. Normal mediastinum and agapito. Normal visualized pulmonary arteries. Normal visualized aortic arch and descending thoracic aorta. There are diffuse degenerative changes of the visualized thoracic spine. Normal visualized ribs, clavicles, and shoulders. There is no demonstrated abnormality of the visualized soft tissue structures of the upper abdomen. RAD/Chest PA and Lateral IMPRESSION: No acute cardiopulmonary disease or interval change. Electronically Signed: Estuardo Cruz DO at 23:04 EST Tel [phone], Service support ,
[2019-08-05 13:02] LABS: Absolute Lymphocyte Count 1.08 X10^3/uL (0.83-4.51); Absolute Neutrophil Count 4.5 X10^3/uL (2.0-7.7); Basophil# 0.05 X10^3/uL; Basophil% 0.7 % (0-1); Eosinophil# 0.22 X10^3/uL; Eosinophils% 3.3 % (0-5); Lymphocyte # 1.08 X10^3/ul (4.0); Lymphocyte % 16.2 % (19-41); Mean Corp Hgb Conc 32.5 g/dL (32-36); Mean Corpuscular Hgb 30.6 pg (27.0-32.0); Mean Corpuscular Volume 94.1 fL (80-94); Mean Platelet Vol. 13.1 fl (6.2-12.0); Monocyte# 0.76 X10^3/uL; Monocyte% 11.4 % (0-10); NRBC Flagged by Analyzer 0 % (0-5); Neutrophil # 4.53 X10^3/uL (2.7-7.7); Platelet Count 174 K/mm3 (150-450); RBC Distribution Width CV 13.5 % (11.6-14.6); RBC Distribution Width SD 46.5 fl (35.1-43.9); Red Blood Count 4.25 M/mm3 (4.6-6.2); White Blood Count 6.7 K/mm3 (4.4-11.0)
[2019-08-05 13:22] LABS: ALB/GLOB Ratio 1.1 RATIO (0.9-2.4); AST(SGOT) 25 U/L (15-37); Alanine Aminotransfer ALT/SGPT 24 U/L (16-61); Albumin, Serum 3.7 g/dL (3.2-5.0); Alkaline Phosphatase 80 U/L (45-117); Anion Gap 5 (5-15); BUN 20 mg/dL (7-18); BUN/Creat Ratio 17.1 RATIO (10-20); Chloride 104 mmol/L (98-107); Creatinine, Serum 1.17 mg/dL (0.70-1.30); EST Glomerular Filtration Rate 63 mL/min (>60); Est Glom Filt Rate - Afr Amer 77 mL/min (>60); Globulin 3.5 g/dL (2.2-4.2); Glucose 108 mg/dL (74-106); Magnesium 2.1 mg/dL (1.6-2.6); Potassium 3.9 mmol/L (3.5-5.1); Protein, Total 7.2 g/dL (6.4-8.2); Sodium Level 141 mmol/L (136-145); Thyroid Stim Hormone (TSH) 1.39 uIU/mL (0.358-3.74)
== END ==
PROVIDERS: Family Provider Family Medicine Geriatric Medicine; PCP Family Medicine Geriatric Medicine; Referring Provider Family Medicine Geriatric Medicine; Visit Provider Family Medicine Geriatric Medicine
DX: R06.02 Shortness of breath (principal); R68.83 Chills (without fever); I10 Essential (primary) hypertension
CPT/HCPCS: 36415; 71046; 80053; 83735; 83880; 84443; 85025; 87633

== ENCOUNTER → 2019-08-12 13:50 | Outpatient (CLI) | payer MEDICARE, OTHER, SELFPAY ==
[2019-07-12 10:42] VITALS: BMI 25.2
--- NOTE | 2019-08-12 14:00 | RAD_ITS ---
STUDY: X-RAY CHEST REASON FOR EXAM: Male, 84 years old. worsening pneumonia TECHNIQUE: PA and lateral views of the chest. COMPARISON: 08/05/2019. FINDINGS: There is a right-sided pacemaker in place. The lungs are underexpanded, otherwise clear. There is no demonstrated pleural abnormality. There is borderline cardiomegaly. Normal mediastinum and agapito. Normal visualized pulmonary arteries. There is atherosclerotic calcification of the aortic arch with tortuosity. There is demineralization of the osseous structures. There is degenerative osteoarthritis of the bilateral shoulders. There is no demonstrated abnormality of the visualized soft tissue structures of the upper abdomen. RAD/Chest PA and Lateral IMPRESSION: No acute cardiopulmonary disease. Electronically Signed: Blanca Márquez MD at 4:16 EST , Service support ,
== END ==
PROVIDERS: Family Provider Family Medicine Geriatric Medicine; PCP Family Medicine Geriatric Medicine; Referring Provider Family Medicine Geriatric Medicine; Visit Provider Family Medicine Geriatric Medicine
DX: J18.9 Pneumonia, unspecified organism (principal); R68.83 Chills (without fever)
CPT/HCPCS: 71046; 87633

== ENCOUNTER 2019-08-13 14:12 | Inpatient (IN) | payer MEDICARE, OTHER, SELFPAY ==
[2019-07-12 10:42] VITALS: BMI 25.2
[2019-08-13] VITALS (12 sets, daily range): BP systolic 127–153; BP diastolic 62–78; PULSE 60–75; RESP 12–20; TEMP 36.4–36.8; O2SAT 94–98; BMI 26.1; BMI 25.7; BMI 25.8
--- NOTE | 2019-08-13 15:25 | EKG12_ITS ---
Test Reason : Blood Pressure : / mmHG Vent. Rate : 060 BPM Atrial Rate : 060 BPM P-R Int : 194 ms QRS Dur : 122 ms QT Int : 472 ms P-R-T Axes : -06 -41 -61 degrees QTc Int : 472 ms Atrial-paced rhythm Left axis deviation /LAHB Left ventricular hypertrophy with QRS widening T wave abnormality, consider lateral ischemia Abnormal ECG Confirmed by EMILY QUINONEZ ([id number]), society editor LAVINIA WEST ([id number]) on 08/15/2019 10:49:43 AM Referred By: JOSE Confirmed By:EMILY QUINONEZ
--- NOTE | 2019-08-13 15:29 | RAD_ITS ---
STUDY: X-RAY CHEST REASON FOR EXAM: Male, 84 years old. COUGH TECHNIQUE: Single AP portable view of the chest. COMPARISON: Comparison is made with prior study dated August 12, 2019. FINDINGS: EKG electrodes are seen. The lungs are clear and expanded. There is no demonstrated pleural abnormality. There is moderate cardiac enlargement. A right-sided dual-chamber pacemaker is seen. Normal mediastinum and agapito. Normal visualized pulmonary arteries. There is atherosclerotic tortuosity of the aortic arch and descending thoracic aorta. There are diffuse degenerative changes of the visualized thoracic spine. Normal visualized ribs, clavicles, and shoulders. There is no demonstrated abnormality of the visualized soft tissue structures of the upper abdomen. RAD/Chest 1 View (Portable) IMPRESSION: Cardiomegaly. Electronically Signed: Xander Flynn, at 15:41 EST , Service support ,
[2019-08-13 15:43] LABS: Bacteria 0 SEEN /hpf (None Seen); Mucous, Urine 0 SEEN /hpf (<or=2+); Squamous Epithelial Cells - UA 0 SEEN /hpf (0-5); White Blood Cells 0 SEEN /hpf (0-5)
[2019-08-13] MEDS: Albuterol 2.5 MG/3 ML VIAL.NEB. INHALATION (15:43)
[2019-08-13] MEDS: Ipratropium/Albuterol Sulfate 3 ML AMPUL.NEB INHALATION ×2 (15:43→18:34)
[2019-08-13] MEDS: 0.9% Normal Saline 1,000 ML 150 ML IV (15:49)
[2019-08-13] MEDS: MethylPREDNISolone 125 MG/2 ML Vial IV (15:50)
[2019-08-13 16:02] LABS: Absolute Lymphocyte Count 1.12 X10^3/uL (0.83-4.51); Absolute Neutrophil Count 10.3 X10^3/uL (2.0-7.7); Basophil# 0.02 X10^3/uL; Basophil% 0.2 % (0-1); Eosinophil# 0.06 X10^3/uL; Eosinophils% 0.5 % (0-5); Hematocrit 34.9 % (40-54); Hemoglobin 11.6 g/dL (13.0-16.5); Lymphocyte # 1.12 X10^3/ul (4.0); Mean Corp Hgb Conc 33.2 g/dL (32-36); Mean Corpuscular Hgb 30.4 pg (27.0-32.0); Mean Corpuscular Volume 91.4 fL (80-94); Mean Platelet Vol. 13.3 fl (6.2-12.0); Monocyte# 0.79 X10^3/uL; Monocyte% 6.4 % (0-10); NRBC Flagged by Analyzer 0 % (0-5); Neutrophil # 10.25 X10^3/uL (2.7-7.7); Neutrophil % 82.7 % (47-70); Platelet Count 166 K/mm3 (150-450); RBC Distribution Width CV 13.5 % (11.6-14.6); RBC Distribution Width SD 45.7 fl (35.1-43.9); Red Blood Count 3.82 M/mm3 (4.6-6.2); White Blood Count 12.4 K/mm3 (4.4-11.0)
--- NOTE | 2019-08-13 16:05 | ED.DCSUM_ITS ---
History of Present Illness Chief Complaint: Cough Informant: Patient, Family Narrative: Patient states that after Jaleel he felt ill with cough some dyspnea and nasal congestion. He tested positive for human metapneumovirus at his doctor's office. He returned on Monday (yesterday) with continued symptoms. He had a chest x-ray that was negative and received Rocephin and azithromycin IV. He also received a dose of Norflex and Toradol IM. He returned back to PCP office today we received additional Rocephin and azithromycin IV. He also developed nausea for which they administered Phenergan. It sounds like he developed some myoclonic jerks states that he was extremely anxious and he received 10 mg of Valium. Patient has had progressive weakness and fatigue. PCP states that he is barely able to walk. No fevers. Past Medical History - Allergies and Home Meds Allergies/Adverse Reactions: Allergies hydrochlorothiazide Allergy (Severe, Verified 08/13/19 14:15) Severe itching rash ranolazine [From Ranexa] Adverse Reaction (Severe, Verified 08/13/19 14:15) Rash omeprazole Adverse Reaction (Verified 08/13/19 14:15) Unknown Phenothiazines Adverse Reaction (Verified 08/13/19 14:15) Unknown Azrfacd-Lwy-Lcm Reductase Inhibitor Adverse Reaction (Verified 08/13/19 14:15) myalgias PHENEGRANZOLE Adverse Reaction (Uncoded 08/13/19 14:15) Unknown Primary Care Physician: Jacques Pena Chi, MD [Primary Care Provider] - Surgical History: angioplasty, cataract, herniorrhaphy, TURP, - - AICD placement Smoking Status: Never smoker - Family History Maternal Family History: Family History (Last Reviewed 07/12/19 @ 10:31 by Roque Lawrence MD) Father CAD (coronary artery disease) Myocardial infarction Sudden cardiac Mother Diabetes Family History: Reports: Heart Disease Paternal Family History: Family History (Last Reviewed 07/12/19 @ 10:31 by Roque Lawrence MD) Father CAD (coronary artery disease) Myocardial infarction Sudden cardiac Mother Diabetes Family History: Reports: Heart Disease Review of Systems General: Reports: Malaise. Denies: Chills, Fever, Sweats Eyes: Denies: Visual changes - bilaterally, Diplopia ENT: Denies: Rhinorrhea, Sore throat Cardiovascular: Denies: Chest pain, Palpitations Respiratory: Reports: Dyspnea, Cough, Sputum, Dyspnea on exertion Gastrointestinal: Reports: Nausea. Denies: Abdominal pain, Vomiting, Diarrhea, Melena, Hematochezia Genitourinary: Denies: Dysuria, Hematuria, Frequency Musculoskeletal: Denies: Back pain, Extremity Pain Skin: Denies: Rash, Wounds Neurological: Denies: Headache, Weakness, Numbness Psych: Reports: Anxiety. Denies: Suicidal thoughts, Suicidal ideations Endocrine: Denies: Polyuria, Polydipsia, Heat intolerance, Cold intolerance Hematologic: Denies: Lymphadenopathy Allergy: Denies: Uticaria, Swelling of the mouth, Swelling of the tongue Physical Exam Vital Signs/Narrative: Vital Signs Temp Pulse Resp BP Pulse Ox 08/13/19 15:51 97.9 F 60 20 H 147/71 H 98 08/13/19 15:43 60 16 08/13/19 14:28 60 15 153/77 H 98 08/13/19 14:15 97.9 F 67 18 141/78 H 95 Inital Vital Signs reviewed: Yes General: Well nourished, Well developed, No Acute Distress Head: Normocephalic, Atraumatic Eyes: Perrl, EOMI ENT: Moist mucous membranes, No rhinorrhea Neck: Supple, Nontender Cardiovascular: Regular rate, Regular rhythm, No murmurs Respiratory: No distress, Chest nontender, Rhonchi - Left greater than right, Wheezing Abdomen: Soft, Nontender, Nondistended, Normal bowel sounds Back: Nontender, Normal Inspection Extremities: Nontender, No edema Skin: Normal color, No rash Neurological: Oriented x3, Cranial nerves II-XII grossly intact, Normal Stren gth, Normal Sensation, Lethargic Psychological: Normal affect, Normal Mood Diagnostic/Tx/Re-eval - Rhythm Strip Rate: 60 - Atrial paced rhythm at a rate of 60 no ectopy - Medical Decision Making Page he is atrial paced but no concerning features for STEMI. Troponin is slightly elevated 0.177. He has had elevated troponins in the past has known coronary artery disease and ischemic cardiomyopathy with low EF. Creatinine 1.08 with a BUN of 27. Hemoglobin 11.6. White blood cell count is 12.4. Patient received gentle hydration. He also received breathing treatments and Solu-Medrol. Patient has bronchitis with bronchospasm due to human metapneumovirus. Most likely has a degree of dehydration. I also feel a lot of his weakness is multifactorial from both the infection and Norflex and Valium and Phenergan. ED Disposition - Plan for ED Patient: Disposition: Acute Care Hospital [facility] Diagnosis: Acute bronchitis due to human metapneumovirus (hMPV), Medication side effects, Elevated troponin I level Referrals: Jacques Pena Chi, MD [Primary Care Provider] -
[2019-08-13 16:07] LABS: International Normalized Ratio 1.1; Prothrombin Time (Protime)PT. 14.3 SECONDS (11.7-14.9)
[2019-08-13 16:08] LABS: Partial Thromboplast Time 24.7 Seconds (24.1-36.2)
[2019-08-13 16:18] LABS: ALB/GLOB Ratio 0.9 RATIO (0.9-2.4); AST(SGOT) 20 U/L (15-37); Alanine Aminotransfer ALT/SGPT 24 U/L (16-61); Albumin, Serum 3.1 g/dL (3.2-5.0); Alkaline Phosphatase 71 U/L (45-117); Anion Gap 3 (5-15); BUN 27 mg/dL (7-18); Calcium,Total 8.6 mg/dL (8.5-10.1); Chloride 109 mmol/L (98-107); Creatinine, Serum 1.08 mg/dL (0.70-1.30); EST Glomerular Filtration Rate 69 mL/min (>60); Est Glom Filt Rate - Afr Amer 84 mL/min (>60); Estimated Creatinine Clearance 53.51 ml/min; Globulin 3.6 g/dL (2.2-4.2); Glucose 94 mg/dL (74-106); Potassium 4.5 mmol/L (3.5-5.1); Protein, Total 6.7 g/dL (6.4-8.2); Sodium Level 140 mmol/L (136-145)
[2019-08-13 16:47] LABS: Lactic Acid 1.8 mmol/L (0.4-1.9)
--- NOTE | 2019-08-13 16:51 | NURSING ---
DR ESPERANZA GARCIA
[2019-08-13 16:52] LABS: Color, Urine Yellow (Yellow); Glucose, Dipstick Normal (Normal); Ketone-Dipstick Negative (Negative); Leukocyte Esterase-Dipstick Negative /ul (Negative); Nitrite-Dipstick Negative (Negative); Occult Blood-Urine 10 /ul (Negative); Protein-Dipstick Negative (Negative); Urine Bilirubin Dipstick Negative (Negative); Urine Clarity Clear (Clear); Urine Urobilinogen Normal (Normal)
--- NOTE | 2019-08-13 16:58 | NURSING ---
109 JOPPERI BRONCHITIS WITH BRONCHOSPASM, ELEVATED TROP
[2019-08-13 17:03] LABS: Red Blood Cells-Urine 0-5 SEEN /hpf (0-5)
--- NOTE | 2019-08-13 17:12 | HP.PCM_ITS ---
<Amairani Álvarez - Last Filed: 08/13/19 17:31> Problem List (1) Acute bronchitis due to human metapneumovirus (hMPV) Status: Resolved (2) Elevated troponin I level Status: Chronic (3) Intermittent palpitations Status: Chronic (4) Dyspnea Status: Chronic (5) Lightheadedness Status: Chronic (6) Atherosclerosis of coronary artery of [place] heart with angina pectoris Status: Chronic Comment: PCI-DOUGLAS-LAD 2.0 x 30 mm Resolute Victoriano, 2.5 x 38 mm and 3.0 x 23 mm Xience Soledad 04/27/18; OEN-BLD-Qkw-Distal RCA w/ 4.0 x 20 mm Promus Premier and DOUGLAS-Prox RCA w/ 4.0 x 12 mm Promus Premier 11/18/2014 ;Cutting balloon PTCA of posterior ventricular branch of RCA and PCI-Stent Prox Lad w/ 3.0 x 8 mm Penta Stent and Mid LAD w/ 3.0 x 13 mm Penta Stent 03/05/2002; (7) Left carotid artery stenosis Status: Chronic (8) Ischemic cardiomyopathy Status: Chronic (9) 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 infarction Status: Chronic (10) Essential (primary) hypertension Status: Chronic (11) Non-ST elevation (NSTEMI) myocardial infarction Status: Chronic (12) History of implantable cardiac defibrillator (ICD) Status: Chronic (13) History of coronary artery stent placement Status: Chronic Comment: PCI-DOUGLAS-LAD 2.0 x 30 mm Resolute Minetto, 2.5 x 38 mm and 3.0 x 23 mm Xience Soledad 04/27/18; RST-BCX-Gsw-Distal RCA w/ 4.0 x 20 mm Promus Premier and DOUGLAS-Prox RCA w/ 4.0 x 12 mm Promus Premier 11/18/2014 ;Cutting balloon PTCA of posterior ventricular branch of RCA and PCI-Stent Prox LAD w/ 3.0 x 8 mm Penta Stent and Mid LAD w/ 3.0 x 13 mm Penta Stent 03/05/2002; (14) Chronic systolic (congestive) heart failure Status: Chronic (15) Nonsustained ventricular tachycardia Status: Chronic (16) HLD (hyperlipidemia) Status: Chronic Qualifiers: Hyperlipidemia type: pure hypercholesterolemia Qualified Code(s): E78.00 - Pure hypercholesterolemia, unspecified; E78.0 - Pure hypercholesterolemia History of Present Illness Date of Admission: 08/13/19 Chief Complaint: Weakness, malaise. The patient is a 84 year old M who presents emergency room due to progressive weakness and general malaise. He was recently diagnosed with human metapneumovirus 08/05/2019 and has been undergoing treatment by primary care provider including steroids and antibiotics. Patient was seen by primary care provider today and reports he was receiving an IV antibiotic when he became flushed, diaphoretic and nauseated. He received Phenergan as well as volume in office and became increasingly weak and drowsy. He reports his upper respiratory symptoms have improved although continues to have intermittent cough. Denies fever, chills. Denies shortness of breath. Patient reports recent ongoing episodes which occur while at rest where he becomes diaphoretic and feels his blood boiling. He states it typically occurs at night while watching TV. He states he has brought this up to other physicians he follows with and it has been attributed to anxiety. at bedside also discussed with this provider privately that she feels patient has significant anxiety and requires frequent reassurance that he is okay. He has a history of chronic systolic CHF/ischemic cardiomyopathy status post AICD, CAD status post stents, carotid disease, NSVT, hypertension, hyperlipidemia, hiatal hernia, GERD, DDD. Past Medical History Past Medical History (Chronic Problems): Chronic Problems (Last Reviewed 07/12/19 @ 10:31 by Roque Lawrence MD) Elevated troponin I level (Chronic) Intermittent palpitations (Chronic) Dyspnea (Chronic) Lightheadedness (Chronic) Atherosclerosis of coronary artery of [place] heart with angina pectoris (Chronic) PCI-DOUGLAS-LAD 2.0 x 30 mm Resolute Minetto, 2.5 x 38 mm and 3.0 x 23 mm Xience Soledad 04/27/18; LQJ-FTI-Thm-Distal RCA w/ 4.0 x 20 mm Promus Premier and DOUGLAS- Prox RCA w/ 4.0 x 12 mm Promus Premier 11/18/2014 ;Cutting balloon PTCA of posterior ventricular branch of RCA and PCI-Stent Prox Lad w/ 3.0 x 8 mm Penta Stent and Mid LAD w/ 3.0 x 13 mm Penta Stent 03/05/2002; Left carotid artery stenosis (Chronic) Ischemic cardiomyopathy (Chronic) 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) Essential (primary) hypertension (Chronic) Non-ST elevation (NSTEMI) myocardial infarction (Chronic 04/2018) History of implantable cardiac defibrillator (ICD) (Chronic 05/17/10) History of coronary artery stent placement (Chronic 04/27/18) PCI-DOUGLAS-LAD 2.0 x 30 mm Resolute Victoriano, 2.5 x 38 mm and 3.0 x 23 mm Xience Soledad 04/27/18; BGU-XAM-Klz-Distal RCA w/ 4.0 x 20 mm Promus Premier and DOUGLAS- Prox RCA w/ 4.0 x 12 mm Promus Premier 11/18/2014 ;Cutting balloon PTCA of posterior ventricular branch of RCA and PCI-Stent Prox LAD w/ 3.0 x 8 mm Penta Stent and Mid LAD w/ 3.0 x 13 mm Penta Stent 03/05/2002; Chronic systolic (congestive) heart failure (Chronic) Nonsustained ventricular tachycardia (Chronic) HLD (hyperlipidemia) (Chronic) Medical History: Medical History (Last Reviewed 07/12/19 @ 10:31 by Roque Lawrence MD) Atherosclerosis of coronary artery of [place] heart with angina pectoris (Chronic) I25.119 PCI-DOUGLAS-LAD 2.0 x 30 mm Resolute Victoriano, 2.5 x 38 mm and 3.0 x 23 mm Xience Soledad 04/27/18; XIS-HJV-Bed-Distal RCA w/ 4.0 x 20 mm Promus Premier and DOUGLAS- Prox RCA w/ 4.0 x 12 mm Promus Premier 11/18/2014 ;Cutting balloon PTCA of posterior ventricular branch of RCA and PCI-Stent Prox Lad w/ 3.0 x 8 mm Penta Stent and Mid LAD w/ 3.0 x 13 mm Penta Stent 03/05/2002; Left carotid artery stenosis (Chronic) I65.22 Ischemic cardiomyopathy (Chronic) I25.5 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) I25.2 Essential (primary) hypertension (Chronic) I10 Non-ST elevation (NSTEMI) myocardial infarction (Chronic) Onset Date: 04/2018 I21.4 Chronic systolic (congestive) heart failure (Chronic) I50.22 Nonsustained ventricular tachycardia (Chronic) I47.2 HLD (hyperlipidemia) (Chronic) E78.5 DDD (degenerative disc disease) GERD (gastroesophageal reflux disease) K21.9 Hiatal hernia K44.9 Polycythemia D75.1 Segmental and somatic dysfunction of pelvic region M99.05 Segmental and somatic dysfunction of thoracic region M99.02 Chest pain (Resolved) R07.9 Carotid artery disease (Inactive) I77.9 Palpitations (Inactive) R00.2 Allergies hydrochlorothiazide Allergy (Severe, Verified 08/13/19 14:15) Severe itching rash ranolazine [From Ranexa] Adverse Reaction (Severe, Verified 08/13/19 14:15) Rash omeprazole Adverse Reaction (Verified 08/13/19 14:15) Unknown Phenothiazines Adverse Reaction (Verified 08/13/19 14:15) Unknown Cjvbnup-Lor-Oxb Reductase Inhibitor Adverse Reaction (Verified 08/13/19 14:15) myalgias PHENEGRANZOLE Adverse Reaction (Uncoded 08/13/19 14:15) Unknown Home Medications: Ambulatory Orders Medication Instructions Recorded Aspirin E.C. [Ecotrin] 81 mg PO DAILY@0800 07/11/13 Pantoprazole Sodium [Protonix] 40 mg PO DAILY 10/29/16 Clopidogrel Bisulfate [Plavix] 75 mg PO DAILY 04/20/18 nitroglycerin 0.4 mg sublingual 0.4 mg SUBLINGUAL Q5-15M PRN #25 09/19/18 tablet tab folic acid 400 mcg tablet 0.4 mg PO DAILY 10/23/18 sotalol 120 mg tablet 120 mg PO BID #180 tab 07/01/19 furosemide 40 mg tablet 20 mg PO DAILY #90 tab 07/29/19 losartan 50 mg tablet 25 mg PO DAILY tab 07/29/19 Surgical History: Surgical History (Last Reviewed 08/13/19 @ 17:22 by CHELSI Mueller) History of implantable cardiac defibrillator (ICD) (Chronic) Onset Date: 05/17/10 History of coronary artery stent placement (Chronic) Onset Date: 04/27/18 Z95.5 PCI-DOUGLAS-LAD 2.0 x 30 mm Resolute Minetto, 2.5 x 38 mm and 3.0 x 23 mm Xience Soledad 04/27/18; EZH-WGB-Mwn-Distal RCA w/ 4.0 x 20 mm Promus Premier and DOUGLAS- Prox RCA w/ 4.0 x 12 mm Promus Premier 11/18/2014 ;Cutting balloon PTCA of posterior ventricular branch of RCA and PCI-Stent Prox LAD w/ 3.0 x 8 mm Penta Stent and Mid LAD w/ 3.0 x 13 mm Penta Stent 03/05/2002; History of electrophysiologic study Onset Date: 2009 Z98.890 09/11/2002 @ [facility] per Dr. Holt; and 05/19/[address] Madrigal [facility] History of intraocular lens implant Z96.1 History of left heart catheterization Onset Date: 04/23/18 Z98.890 03/05/2002;08/20/2002; 04/2004; May 2010; 11/18/2014 Surgical History: angioplasty, cataract, herniorrhaphy, TURP, - - AICD placement Psychiatric History: No pertinent psych hx Lives: Spouse/ Significant Other Smoking Status: Never smoker Alcohol: None Drugs: None - *Family History Maternal Family History: Family History (Last Reviewed 08/13/19 @ 17:23 by CHELSI Mueller) Father CAD (coronary artery disease) Myocardial infarction Sudden cardiac Mother Diabetes History Items: Heart Disease Paternal Family History: Family History (Last Reviewed 08/13/19 @ 17:23 by CHELSI Mueller) Father CAD (coronary artery disease) Myocardial infarction Sudden cardiac Mother Diabetes History Items: Heart Disease Review of Systems Constitutional: Reports: Malaise, Weakness, - - Intermittent diaphoresis, hot flashes HEENT: Denies: Head Aches, Sinus Congestion, Sinus Drainage Cardiovascular: Reports: Light Headedness. Denies: Chest Pain, Edema, Palpitations, Syncope Respiratory: Reports: Cough, Shortness of breath upon exertion Gastrointestinal: Denies: Abdominal Pain, Nausea, Vomiting Genitourinary: Denies: Dysuria Musculoskeletal: Denies: Joint Pain, Joint Tenderness Skin: Denies: Rash, Wounds Neurological: Denies: Numbness, Tingling, Focal weakness Psychiatric: Reports: Anxiety Hematologic/ Lymphatic: Denies: Easy Bruising, Easy Bleeding VTE Information - Inpt Only VTE Present on Admission: No VTE Mechan Device Prophylaxis: None VTE Pharm Prophylaxis ordered?: Yes - Physical Exam Vitals/I&O's: Vital Signs Temp Pulse Resp BP Pulse Ox 97.9 F 60 16 127/77 H 94 08/13/19 15:51 08/13/19 16:38 08/13/19 16:38 08/13/19 16:38 08/13/19 16:38 Oxygen Delivery Method Room Air Weight: 182 lb Body Mass Index (BMI) 26.1 General: Alert, Oriented x3, Cooperative HEENT: Atraumatic, PERRLA, EOMI, Normocephalic Neck: Supple, No JVD, Negative Carotid Bruits Lungs: Diminished, - - Rhonchi right base Cardiovascular: Regular rate, Regular Rhythm, Normal S1, Normal S2 Abdomen: Bowel Sounds Present, Soft, Non Tender, Non-Distended Extremities: No clubbing, No cyanosis, No edema, Capillary Refill Less than 3 Seconds Skin: No rashes, No breakdown Musculoskeletal: No Tenderness to Palpation of Joints or Extremities Neurological: Cranial nerves II-XII grossly intact, Neuro grossly intact Psych/Mental Status: Normal Affect, Appropriate Laboratory Results 08/13/19 15:30: Urine Color Yellow, Urine Clarity Clear, Urine pH 6.0, Ur Specific [place] 1.010, Urine Protein Negative, Urine Glucose (UA) Normal, Urine Ketones Negative, Urine Occult Blood 10 H, Urine Nitrite Negative, Urine Bilirubin Negative, Urine Urobilinogen Normal, Ur Leukocyte Esterase Negative, Urine RBC 0-5 SEEN, Urine WBC 0 SEEN, Ur Squamous Epith Cells 0 SEEN, Urine Bacteria 0 SEEN, Urine Mucus 0 SEEN 08/13/19 15:45: WBC 12.4 H, RBC 3.82 L, Hgb 11.6 L, Hct 34.9 L, MCV 91.4, MCH 30.4, MCHC 33.2, RDW Std Deviation 45.7 H, RDW Coeff of Dane 13.5, Plt Count 166, MPV 13.3 H, Immature Gran % (Auto) 1.200 H, Neut % (Auto) 82.7 H, Lymph % (Auto) 9.0 L, Daniels % (Auto) 6.4, Eos % (Auto) 0.5, Baso % (Auto) 0.2, Absolute Neuts (auto) 10.3 H, Absolute Lymphs (auto) 1.12, Nucleated RBC % 0 08/13/19 15:45: PT 14.3, INR 1.1, APTT 24.7 08/13/19 15:45: Sodium 140, Potassium 4.5, Chloride 109 H, Carbon Dioxide 28.0, Anion Gap 3 L, BUN 27 H, Creatinine 1.08, Estim Creat Clear Calc 53.51, Est GFR (MDRD) Af Amer 84, Est GFR (MDRD) Non-Af 69, BUN/Creatinine Ratio 25.0 H, Glucose 94, Calcium 8.6, Total Bilirubin 0.40, AST 20, ALT 24, Alkaline Phosphatase 71, Troponin I 0.177 H, Total Protein 6.7, Albumin 3.1 L, Globulin 3.6, Albumin/Globulin Ratio 0.9 08/13/19 15:45: Lactic Acid 1.8 Current Medications Sodium Chloride () 1,000 mls @ 150 mls/hr IV .Q6H40M [facility] Last Admin: 08/13/19 15:49 Dose: 150 mls/hr Documented by: Assessment/Plan All Active Problems (Last Reviewed 07/12/19 @ 10:31 by Roque Lawrence MD) Acute bronchitis due to human metapneumovirus (hMPV) (Resolved) Chest pain (Resolved) ENTERITIS DUE SALMONELLA (Resolved) Pneumonia, community acquired (Resolved) 1. Abnormal troponin- appear chronically elevated. Hx CAD s/p stent. Follows with Dr. Lawrence. Trend enzymes. Consult cardiology if troponin trends upward. 2. Debility, weakness- suspect multi-factorial due to recent URI, mild dehydration and valium administration earlier today. PT/OT. 3. Recent human metapneumovirus-continue supportive treatment. Continue prednisone. 4. Chronic systolic CHF-prior echocardiogram showed an EF of 20%, stage I diastolic dysfunction. Continue losartan, sotalol regimen. 5. Ischemic cardiomyopathy status post AICD 6. Hypertension-stable, continue home regimen of losartan, sotalol. 7. Hyperlipidemia-continue statin. 8. Carotid artery disease-continue aspirin, Plavix, statin. 9. GERD- continue PPI. 10. Hiatal hernia 11. DDD- Tylenol PRN for pain. 12. Anxiety, uncontrolled- recommend addition of SSRI or other non-sedating fatuma men for mcc control. Defer to outpatient. DVT prophylaxis- Lovenox This patient was seen by CHELSI Mueller under the supervision of Dr. Austin. <Jose M Austin - Last Filed: 08/13/19 17:41> History of Present Illness The patient is a 84 year old M presents with confusion. Patient was sent from his primary care's office to the ER. Patient been treated for pneumonia and received Rocephin as well as azithromycin yesterday as well as Norflex and Toradol. Presented again today to receive additional antibiotics. He did receive Phenergan for some nausea then developed some jerking motions and then received 10 mg of Valium. Subsequently, the patient was confused and weak and patient was sent to the emergency room for evaluation. In emergency room, patient was noted to have a white count of 12.4 thousand and a troponin of 0.17. Patient is now having chest pain. Patient has normalized since then. Patient is very concerned about these hot flashes that he gets where he feels that his heart is racing and has been going on for months and his primary as well as his software technician are aware this. States is been occurring more frequently about every 2-3 hours and anxious and stated that he only slept about an hour last night. [] Past Medical History Medical History: Medical History (Last Reviewed 08/13/19 @ 17:36 by Jose M Austin DO) Atherosclerosis of coronary artery of [place] heart with angina pectoris (Chronic) I25.119 PCI-DOUGLAS-LAD 2.0 x 30 mm Resolute Victoriano, 2.5 x 38 mm and 3.0 x 23 mm Xience Soledad 04/27/18; TSL-IAB-Rvy-Distal RCA w/ 4.0 x 20 mm Promus Premier and DOUGLAS- Prox RCA w/ 4.0 x 12 mm Promus Premier 11/18/2014 ;Cutting balloon PTCA of posterior ventricular branch of RCA and PCI-Stent Prox Lad w/ 3.0 x 8 mm Penta Stent and Mid LAD w/ 3.0 x 13 mm Penta Stent 03/05/2002; Left carotid artery stenosis (Chronic) I65.22 Ischemic cardiomyopathy (Chronic) I25.5 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) I25.2 Essential (primary) hypertension (Chronic) I10 Non-ST elevation (NSTEMI) myocardial infarction (Chronic) Onset Date: 04/2018 I21.4 Chronic systolic (congestive) heart failure (Chronic) I50.22 Nonsustained ventricular tachycardia (Chronic) I47.2 HLD (hyperlipidemia) (Chronic) E78.5 DDD (degenerative disc disease) GERD (gastroesophageal reflux disease) K21.9 Hiatal hernia K44.9 Polycythemia D75.1 Segmental and somatic dysfunction of pelvic region M99.05 Segmental and somatic dysfunction of thoracic region M99.02 Chest pain (Resolved) R07.9 Carotid artery disease (Inactive) I77.9 Palpitations (Inactive) R00.2 Allergies hydrochlorothiazide Allergy (Severe, Verified 08/13/19 14:15) Severe itching rash ranolazine [From Ranexa] Adverse Reaction (Severe, Verified 08/13/19 14:15) Rash omeprazole Adverse Reaction (Verified 08/13/19 14:15) Unknown Phenothiazines Adverse Reaction (Verified 08/13/19 14:15) Unknown [place]-Fao-Ajx Reductase Inhibitor Adverse Reaction (Verified 08/13/19 14:15) myalgias PHENEGRANZOLE Adverse Reaction (Uncoded 08/13/19 14:15) Unknown Surgical History: Surgical History (Last Reviewed 08/13/19 @ 17:36 by Jose M Austin DO) History of implantable cardiac defibrillator (ICD) (Chronic) Onset Date: 05/17/10 History of coronary artery stent placement (Chronic) Onset Date: 04/27/18 Z95.5 PCI-DOUGLAS-LAD 2.0 x 30 mm Resolute Minetto, 2.5 x 38 mm and 3.0 x 23 mm Xience Soledad 04/27/18; TCK-VZO-Dup-Distal RCA w/ 4.0 x 20 mm Promus Premier and DOUGLAS- Prox RCA w/ 4.0 x 12 mm Promus Premier 11/18/2014 ;Cutting balloon PTCA of posterior ventricular branch of RCA and PCI-Stent Prox LAD w/ 3.0 x 8 mm Penta Stent and Mid LAD w/ 3.0 x 13 mm Penta Stent 03/05/2002; History of electrophysiologic study Onset Date: 2009 Z98.890 09/11/2002 @ [facility] per Dr. Holt; and 05/19/[address] Madrigal [facility] History of intraocular lens implant Z96.1 History of left heart catheterization Onset Date: 04/23/18 Z98.890 03/05/2002;08/20/2002; 04/2004; May 2010; 11/18/2014 - *Family History Maternal Family History: Family History (Last Reviewed 08/13/19 @ 17:36 by Jose M Austin DO) Father CAD (coronary artery disease) Myocardial infarction Sudden cardiac Mother Diabetes Paternal Family History: Family History (Last Reviewed 08/13/19 @ 17:36 by Jose M Austin DO) Father CAD (coronary artery disease) Myocardial infarction Sudden cardiac Mother Diabetes Review of Systems Constitutional: Reports: Malaise, Weakness, - HEENT: Denies: Head Aches, Sinus Congestion, Sinus Drainage Cardiovascular: Reports: Light Headedness. Denies: Chest Pain, Edema, Palpitations, Syncope Respiratory: Reports: Cough, Shortness of breath upon exertion Gastrointestinal: Denies: Abdominal Pain, Nausea, Vomiting Genitourinary: Denies: Dysuria Musculoskeletal: Denies: Joint Pain, Joint Tenderness Skin: Denies: Rash, Wounds Neurological: Denies: Focal weakness, Numbness, Tingling Psychiatric: Reports: Anxiety Hematologic/ Lymphatic: Denies: Easy Bruising, Easy Bleeding VTE Information - Inpt Only VTE Present on Admission: No VTE Mechan Device Prophylaxis: None VTE Pharm Prophylaxis ordered?: No - Physical Exam Vitals/I&O's: Vital Signs Temp Pulse Resp BP Pulse Ox 36.6 C 60 16 127/77 H 94 08/13/19 15:51 08/13/19 16:38 08/13/19 16:38 08/13/19 16:38 08/13/19 16:38 Oxygen Delivery Method Room Air Weight: 82.554 kg Body Mass Index (BMI) 26.1 General: Alert, Cooperative HEENT: Atraumatic, Normocephalic Oral: Moist Mucosa, No Gingival or Mucosal Lesions/ Ulcerations Neck: No Nodes, Trachea Midline Lungs: Diminished, - - Coarse breath sounds throughout Cardiovascular: Regular rate, Regular Rhythm, Normal S1, Normal S2 Abdomen: Bowel Sounds Present, Soft, Non Tender, Non-Distended Extremities: No edema, No Calf Tenderness Skin: No rashes, No breakdown Musculoskeletal: No Tenderness to Palpation of Joints or Extremities, No Muscle Wasting Neurological: Cranial nerves II-XII grossly intact, Neuro grossly intact Psych/Mental Status: Normal Affect, Appropriate Laboratory Results 08/13/19 15:30: Urine Color Yellow, Urine Clarity Clear, Urine pH 6.0, Ur Specific [place] 1.010, Urine Protein Negative, Urine Glucose (UA) Normal, Urine Ketones Negative, Urine Occult Blood 10 H, Urine Nitrite Negative, Urine Bilirubin Negative, Urine Urobilinogen Normal, Ur Leukocyte Esterase Negative, Urine RBC 0-5 SEEN, Urine WBC 0 SEEN, Ur Squamous Epith Cells 0 SEEN, Urine Bacteria 0 SEEN, Urine Mucus 0 SEEN 08/13/19 15:45: WBC 12.4 H, RBC 3.82 L, Hgb 11.6 L, Hct 34.9 L, MCV 91.4, MCH 30.4, MCHC 33.2, RDW Std Deviation 45.7 H, RDW Coeff of Dane 13.5, Plt Count 166, MPV 13.3 H, Immature Gran % (Auto) 1.200 H, Neut % (Auto) 82.7 H, Lymph % (Auto) 9.0 L, Daniels % (Auto) 6.4, Eos % (Auto) 0.5, Baso % (Auto) 0.2, Absolute Neuts (auto) 10.3 H, Absolute Lymphs (auto) 1.12, Nucleated RBC % 0 08/13/19 15:45: PT 14.3, INR 1.1, APTT 24.7 08/13/19 15:45: Sodium 140, Potassium 4.5, Chloride 109 H, Carbon Dioxide 28.0, Anion Gap 3 L, BUN 27 H, Creatinine 1.08, Estim Creat Clear Calc 53.51, Est GFR (MDRD) Af Amer 84, Est GFR (MDRD) Non-Af 69, BUN/Creatinine Ratio 25.0 H, Glucose 94, Calcium 8.6, Total Bilirubin 0.40, AST 20, ALT 24, Alkaline Phosphatase 71, Troponin I 0.177 H, Total Protein 6.7, Albumin 3.1 L, Globulin 3.6, Albumin/Globulin Ratio 0.9 08/13/19 15:45: Lactic Acid 1.8 Current Medications Sodium Chloride () 1,000 mls @ 150 mls/hr IV .Q6H40M [facility] Last Admin: 08/13/19 15:49 Dose: 150 mls/hr Documented by: Assessment/Plan Patient seen and examined independently. Data reviewed. I agree with the above note by the nurse practitioner. 1. Debility * Acutely, this is likely component of medications that he received in the office. Particularly the Phenergan as well as the Valium * Will have therapy evaluate him and see if he has any home-going needs when he is ready for discharge. 2. Upper respiratory infection * Patient tested positive for human Metaphneumo virus * Reviewed the chest x-ray there is no infiltrate * May be a component of bronchitis * No indication for antibiotics so patient and his are aware that he will not receive additional antibiotics at this point in time why he is in the hospital * He did receive methylprednisolone and I will continue with prednisone starting on the eighth 3. Diaphoresis * Is unclear if the patient is actually having palpitations but will have his pacemaker interrogated to see if there is anything that may suggest tachycardia associated with these symptoms * Will check orthostatic vital signs and monitor him on telemetry 4. Elevated troponins * Is currently can been elevated and this is actually lower than it has been but is unclear if this is stable, going down or trending upwards * So we will trend while he is here * If trends upwards, then will likely need to consult cardiology but if this remains stable or trends down would not recommend any additional work-up at t his time. Case discussed with his at bedside. All questions were answered. Code Visit OBSV E&M: [id number] Initial observation care L3
[2019-08-13] MEDS: Enoxaparin 80 MG/0.8 ML Syringe SC (21:30)
[2019-08-13] MEDS: Sotalol Hydrochloride 80 MG Tablet 120 MG PO (21:31)
--- NOTE | 2019-08-13 22:10 | PCM.PN.BLA ---
Progress Note Notified of upward trend in troponin from 0.177 to 0.435. Patient is asymptomatic, stable vitals Lovenox Sc 80mg X1 given Cardiology consult placed STROKE Vital Signs/Narrative: Vital Signs Pulse Pulse Pulse Pulse Resp BP BP 08/13/19 21:26 67 73 73 133/62 H 128/72 H 08/13/19 18:57 75 08/13/19 18:35 75 16 BP Pulse Ox 08/13/19 21:26 134/72 H 08/13/19 18:57 08/13/19 18:35 96
[2019-08-14] VITALS (10 sets, daily range): BP systolic 118–159; BP diastolic 56–78; PULSE 60–72; RESP 12–18; TEMP 36.5–37; O2SAT 93–98
[2019-08-14 06:58] LABS: Absolute Neutrophil Count 10.2 X10^3/uL (2.0-7.7); Hematocrit 32.4 % (40-54); Hemoglobin 10.9 g/dL (13.0-16.5); Lymphocyte % 6.1 % (19-41); Mean Corp Hgb Conc 33.6 g/dL (32-36); Mean Corpuscular Hgb 30.5 pg (27.0-32.0); Mean Corpuscular Volume 90.8 fL (80-94); Monocyte# 0.43 X10^3/uL; Monocyte% 3.8 % (0-10); NRBC Flagged by Analyzer 0 % (0-5); Neutrophil # 10.18 X10^3/uL (2.7-7.7); Neutrophil % 89.1 % (47-70); Platelet Count 170 K/mm3 (150-450); RBC Distribution Width CV 13.4 % (11.6-14.6); RBC Distribution Width SD 44.7 fl (35.1-43.9); Red Blood Count 3.57 M/mm3 (4.6-6.2); White Blood Count 11.4 K/mm3 (4.4-11.0)
[2019-08-14] MEDS: Aspirin E.C. 81 MG Tablet PO (08:50)
[2019-08-14] MEDS: predniSONE 20 MG Tablet 40 MG PO (08:50)
[2019-08-14] MEDS: Folic Acid 1 MG Tablet 0.5 MG PO (08:50)
[2019-08-14] MEDS: Sotalol Hydrochloride 80 MG Tablet 120 MG PO ×2 (08:51→21:26)
[2019-08-14] MEDS: Furosemide 20 MG Tablet PO (08:52)
[2019-08-14] MEDS: Losartan Potassium 25 MG Tablet PO (08:52)
[2019-08-14] MEDS: Pantoprazole Sodium 40 MG Tablet PO (08:52)
[2019-08-14] MEDS: Clopidogrel Bisulfate 75 MG Tablet PO (08:52)
--- NOTE | 2019-08-14 10:22 | PCM.CONS.C ---
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 Non-STEMI History of Present Illness: The patient is a 84 year old M, patient Dr. Lawrence'rupesh with a history of hypertension, hypercholesterolemia, ischemic cardiomyopathy status post AICD on the right side, coronary disease status post stenting in the past. He has a history of coronary artery disease with angioplasty and stenting to his RCA and LAD. He also has a history of ischemic cardiomyopathy with prophylactic ICD. He had a heart catheterization in 2015 which demonstrated a long area of 95% stenosis of the distal LAD, RCA was previously stented and patent, circumflex patent. Viability demonstrated no viability in the anterior anteroseptal and apical varghese medical management was recommended. Patient had a stress test in October 2016 which demonstrated previous extensive anterior apical infarct, basal inferior infarct, inferolateral infarct with no ischemia. He had a NSTEMI in 04/2018 and underwent angioplasty and stenting of the proximal mid and distal left anterior descending artery. He had a 2.5 x 38 mm X science stent followed by 3.0 x 23 mm stent and a 2.0 x 30 mm stent. I am not sure if this was done in outside facility, as it does not appear that it is still included in her databank. The circumflex artery was apparently left untouched. Patient has been doing relatively well however he gets exertional chest pressure at a certain amount of exertion is relieved with rest. The patient been doing well up until around [place] time when he developed what sounds like a sinus infection, bronchitis, and was treated in his doctor's office with IV antibiotic therapy. When this did not improve he went back to his doctor's office and received a second round of IV antibiotic therapy and apparently developed some shaking chills and nausea, which responded to Phenergan. Patient referred to the emergency room and subsequently admitted. His initial troponin was 0.177, and now is increased to 0.648. Patient is chest pain-free and resting comfortably at this time. Patient reports that he is taking and tolerating his medicines well. EKG demonstrates paced atrial rhythm, intraventricular conduction delay, no acute changes. [] Past Medical History Allergies/Adverse Reactions: Allergies hydrochlorothiazide Allergy (Severe, Verified 08/13/19 14:15) Severe itching rash ranolazine [From Ranexa] Adverse Reaction (Severe, Verified 08/13/19 14:15) Rash omeprazole Adverse Reaction (Verified 08/13/19 14:15) Unknown Phenothiazines Adverse Reaction (Verified 08/13/19 14:15) Unknown Xajlfep-Oks-Nqk Reductase Inhibitor Adverse Reaction (Verified 08/13/19 14:15) myalgias PHENEGRANZOLE Adverse Reaction (Uncoded 08/13/19 14:15) Unknown Home Medications: Ambulatory Orders Medication Instructions Recorded Aspirin E.C. [Ecotrin] 81 mg PO DAILY@0800 07/11/13 Pantoprazole Sodium [Protonix] 40 mg PO DAILY 10/29/16 Clopidogrel Bisulfate [Plavix] 75 mg PO DAILY 04/20/18 nitroglycerin 0.4 mg sublingual 0.4 mg SUBLINGUAL Q5-15M PRN #25 09/19/18 tablet tab folic acid 400 mcg tablet 0.4 mg PO DAILY 10/23/18 sotalol 120 mg tablet 120 mg PO BID #180 tab 07/01/19 furosemide 40 mg tablet 20 mg PO DAILY #90 tab 07/29/19 losartan 50 mg tablet 25 mg PO DAILY tab 07/29/19 Past Medical History (Chronic Problems): Chronic Problems (Last Reviewed 08/13/19 @ 17:36 by Jose M Austin DO) Elevated troponin I level (Chronic) Intermittent palpitations (Chronic) Dyspnea (Chronic) Lightheadedness (Chronic) Atherosclerosis of coronary artery of [place] heart with angina pectoris (Chronic) PCI-DOUGLAS-LAD 2.0 x 30 mm Resolute [place], 2.5 x 38 mm and 3.0 x 23 mm Xience Soledad 04/27/18; AQC-UOU-Pom-Distal RCA w/ 4.0 x 20 mm Promus Premier and DOUGLAS-Prox RCA w/ 4.0 x 12 mm Promus Premier 11/18/2014 ;Cutting balloon PTCA of posterior ventricular branch of RCA and PCI-Stent Prox Lad w/ 3.0 x 8 mm Penta Stent and Mid LAD w/ 3.0 x 13 mm Penta Stent 03/05/2002; Left carotid artery stenosis (Chronic) Ischemic cardiomyopathy (Chronic) 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) Essential (primary) hypertension (Chronic) Non-ST elevation (NSTEMI) myocardial infarction (Chronic 04/2018) History of implantable cardiac defibrillator (ICD) (Chronic 05/17/10) History of coronary artery stent placement (Chronic 04/27/18) PCI-DOUGLAS-LAD 2.0 x 30 mm Resolute [place], 2.5 x 38 mm and 3.0 x 23 mm Xience [place] 04/27/18; GXO-QEU-Xhr-Distal RCA w/ 4.0 x 20 mm Promus Premier and DOUGLAS-Prox RCA w/ 4.0 x 12 mm Promus Premier 11/18/2014 ;Cutting balloon PTCA of posterior ventricular branch of RCA and PCI-Stent Prox LAD w/ 3.0 x 8 mm Penta Stent and Mid LAD w/ 3.0 x 13 mm Penta Stent 03/05/2002; Chronic systolic (congestive) heart failure (Chronic) Nonsustained ventricular tachycardia (Chronic) HLD (hyperlipidemia) (Chronic) Surgical History: angioplasty, cataract, herniorrhaphy, TURP, - - AICD placement Psychiatric History: No pertinent psych hx - *Family History Maternal Family History: Family History (Last Reviewed 08/13/19 @ 17:36 by Jose M Austin DO) Father CAD (coronary artery disease) Myocardial infarction Sudden cardiac Mother Diabetes History Items: Heart Disease Paternal Family History: Family History (Last Reviewed 08/13/19 @ 17:36 by Jose M Austin DO) Father CAD (coronary artery disease) Myocardial infarction Sudden cardiac Mother Diabetes History Items: Heart Disease Lives: Spouse/ Significant Other Smoking Status: Never smoker Alcohol: None Drugs: None Review of Systems - Review of Systems General: Reports: Fever, Malaise, Chills Cardiovascular: Reports: Chest Discomfort with Exertion Respiratory: Reports: Cough, Sputum Production. Denies: Hemoptysis Gastrointestinal: Denies: Hematemesis, Hematochezia, Melena Genitourinary: Denies: Dysuria, Hematuria Skin: Denies: Rash Objective: Vital Signs Temp Pulse Resp BP Pulse Ox 97.8 F 65 12 159/78 H 98 08/14/19 09:30 08/14/19 09:30 08/14/19 09:30 08/14/19 09:30 08/14/19 09:30 Oxygen Delivery Method Room Air Weight: 179 lb 10.828 oz Body Mass Index (BMI) 25.7 Orthostatic Vital Signs Start: 08/13/19 21:26 Freq: q24h Status: Active Protocol: Activity Type Activity Date Activity User E-Sign Co-Sign Detail Recorded Client Recorded Date Recorded By Document 08/13/19 21:26 CM [id number] 08/13/19 21:29 CM 08/13/19 21:26 Orthostatic Vitals Standing -Blood Pressure (90/60-120/80) 134/72 H -Extremity Use Right Arm -Pulse Rate (60-100) 73 Sitting -Blood Pressure (90/60-120/80) 128/72 H -Extremity Use Right Arm -Pulse Rate (60-100) 73 Lying -Blood Pressure (90/60-120/80) 133/62 H -Extremity Use Right Arm -Pulse Rate (60-100) 67 Intake and Output for Last 24 Hours 08/12/19 08/13/19 08/14/19 23:59 23:59 23:59 Intake Total 857.5 / 857.5 100 / 100 Balance 857.5 / 857.5 100 / 100 08/13/19 15:30: Urine Color Yellow, Urine Clarity Clear, Urine pH 6.0, Ur Specific [place] 1.010, Urine Protein Negative, Urine Glucose (UA) Normal, Urine Ketones Negative, Urine Occult Blood 10 H, Urine Nitrite Negative, Urine Bilirubin Negative, Urine Urobilinogen Normal, Ur Leukocyte Esterase Negative, Urine RBC 0-5 SEEN, Urine WBC 0 SEEN 08/13/19 15:45: WBC 12.4 H, RBC 3.82 L, Hgb 11.6 L, Hct 34.9 L, MCV 91.4, MCH 30.4, MCHC 33.2, Plt Count 166, MPV 13.3 H, Immature Gran % (Auto) 1.200 H, Neut % (Auto) 82.7 H, Lymph % (Auto) 9.0 L, [place] % (Auto) 6.4, Eos % (Auto) 0.5, Baso % (Auto) 0.2, Absolute Neuts (auto) 10.3 H, Nucleated RBC % 0 08/13/19 15:45: PT 14.3, INR 1.1, APTT 24.7 08/13/19 15:45: Sodium 140, Potassium 4.5, Chloride 109 H, Carbon Dioxide 28.0, Anion Gap 3 L, BUN 27 H, Creatinine 1.08, Est GFR (MDRD) Af Amer 84, Est GFR (MDRD) Non-Af 69, BUN/Creatinine Ratio 25.0 H, Glucose 94, Calcium 8.6, Total Bilirubin 0.40, Troponin I 0.177 H 08/13/19 15:45: Lactic Acid 1.8 08/13/19 19:04: Troponin I 0.435 H 08/13/19 21:50: Troponin I 0.648 H* 08/14/19 05:45: WBC 11.4 H, RBC 3.57 L, Hgb 10.9 L, Hct 32.4 L, MCV 90.8, MCH 30.5, MCHC 33.6, Plt Count 170, MPV 13.0 H, Immature Gran % (Auto) 1.000 H, Neut % (Auto) 89.1 H, Lymph % (Auto) 6.1 L, [place] % (Auto) 3.8, Eos % (Auto) 0.0, Baso % (Auto) 0.0, Absolute Neuts (auto) 10.2 H, Nucleated RBC % 0 Rhythm: EKG: ECHO: Stress Test: Cardiac Cath: I reviewed the cardiac cath films from 04/23/2018 which demonstrated significant multivessel coronary occlusive disease with widely patent stents to his RCA, significant in-stent restenosis of his proximal LAD with totally occluded LAD and possibly significant 70% stenosis in the mid and distal left circumflex. No intervention was performed on that catheterization visit here at [facility] that I can find. Patient was supposed to have a viability study but again I cannot locate that in our computer. PCI: CT Surgery: Holter monitor: EPS: PPM: CXR: Chest CT Scan: Assessment/Plan 1. Ischemic cardiomyopathy: The patient has had stable exertional angina with a certain workload ever since his angioplasty and stenting in April 2018, apparently done at an outside facility as I do not have a record or images of that event. I reviewed his diagnostic catheterization films done by Dr. Lawrence on 04/23/2018, and apparently he did not have any intervention of his left circumflex system. The patient now returns with what appears to be bronchitis combined with sinusitis superimposed on what appears to be some kind of allergic reaction to IV antibiotic therapy in his doctor's office. In addition the patient has known severe LV dysfunction with an EF of 20%, and has not had a repeat catheterization since his intervention in April 28, 2018. His troponins have now increased to 0.648 and trending upwards although he remains chest pain-free at rest. At this point I would recommend he continue his baby aspirin, Plavix, Lasix, losartan and sotalol. I will discuss with Dr. Lawrence how to proceed with respect to either repeat stress testing to evaluate his most recent stents, or repeat catheterization, or medical therapy. I do not believe the patient would benefit from a repeat stress test at this time given his abnormal enzymes, and previously known stable exertional anginal symptoms. 2. Hyperlipidemia: Unfortunately the patient is allergic to statins. I will defer to Dr. Lawrence with respect to antilipid therapy. 3. Status post AICD: The patient had a prophylactic AICD placed but on the right side, will consider interrogation of same. He denies any palpitations or AICD discharges. 4. Thank you very much for the opportunity to participate in the cardiac care of your patient. Consultation time took place between 8 AM and 8:30 AM. Will discuss with Dr. Howard on how to proceed. Code Visit Inpatient E&M: 45713 Init Hosp L2
--- NOTE | 2019-08-14 14:00 | PCM.PROGNOTE ---
<Amairani Álvarez - Last Filed: 08/14/19 14:09> Subjective: Patient seen and examined. Feels well. Denies further episodes of diaphoresis overnight. Denies chest pain, palpitations, shortness of breath. - Physical Exam Vitals/I&O's: Vital Signs Temp Pulse Resp BP Pulse Ox 97.8 F 65 12 159/78 H 98 08/14/19 09:30 08/14/19 09:30 08/14/19 09:30 08/14/19 09:30 08/14/19 09:30 Oxygen Delivery Method Room Air Weight: 179 lb 10.828 oz Body Mass Index (BMI) 25.7 Orthostatic Vital Signs Start: 08/13/19 21:26 Freq: q24h Status: Active Protocol: Activity Type Activity Date Activity User E-Sign Co-Sign Detail Recorded Client Recorded Date Recorded By Document 08/13/19 21:26 CM [id number] 08/13/19 21:29 CM 08/13/19 21:26 Orthostatic Vitals Standing -Blood Pressure (90/60-120/80) 134/72 H -Extremity Use Right Arm -Pulse Rate (60-100) 73 Sitting -Blood Pressure (90/60-120/80) 128/72 H -Extremity Use Right Arm -Pulse Rate (60-100) 73 Lying -Blood Pressure (90/60-120/80) 133/62 H -Extremity Use Right Arm -Pulse Rate (60-100) 67 Intake and Output for Last 24 Hours 08/12/19 08/13/19 08/14/19 23:59 23:59 23:59 Intake Total 857.5 / 857.5 500 / 500 Balance 857.5 / 857.5 500 / 500 General: Alert, Oriented x3, Cooperative HEENT: Atraumatic, PERRLA, EOMI, Normocephalic Neck: Supple, No JVD, Negative Carotid Bruits Lungs: Diminished, - - Coarse breath sounds right base Cardiovascular: Regular rate, Regular Rhythm, Normal S1, Normal S2, No murmurs Abdomen: Bowel Sounds Present, Soft, Non Tender, Non-Distended Extremities: No clubbing, No cyanosis, No edema, Capillary Refill Less than 3 Seconds Skin: No rashes, No breakdown Musculoskeletal: No Tenderness to Palpation of Joints or Extremities Neurological: Cranial nerves II-XII grossly intact, Neuro grossly intact Psych/Mental Status: Normal Affect, Appropriate Laboratory Results 08/13/19 15:30: Urine Color Yellow, Urine Clarity Clear, Urine pH 6.0, Ur Specific [place] 1.010, Urine Protein Negative, Urine Glucose (UA) Normal, Urine Ketones Negative, Urine Occult Blood 10 H, Urine Nitrite Negative, Urine Bilirubin Negative, Urine Urobilinogen Normal, Ur Leukocyte Esterase Negative, Urine RBC 0-5 SEEN, Urine WBC 0 SEEN, Ur Squamous Epith Cells 0 SEEN, Urine Bacteria 0 SEEN, Urine Mucus 0 SEEN 08/13/19 15:45: WBC 12.4 H, RBC 3.82 L, Hgb 11.6 L, Hct 34.9 L, MCV 91.4, MCH 30.4, MCHC 33.2, RDW Std Deviation 45.7 H, RDW Coeff of Dane 13.5, Plt Count 166, MPV 13.3 H, Immature Gran % (Auto) 1.200 H, Neut % (Auto) 82.7 H, Lymph % (Auto) 9.0 L, Bradley % (Auto) 6.4, Eos % (Auto) 0.5, Baso % (Auto) 0.2, Absolute Neuts (auto) 10.3 H, Absolute Lymphs (auto) 1.12, Nucleated RBC % 0 08/13/19 15:45: PT 14.3, INR 1.1, APTT 24.7 08/13/19 15:45: Sodium 140, Potassium 4.5, Chloride 109 H, Carbon Dioxide 28.0, Anion Gap 3 L, BUN 27 H, Creatinine 1.08, Estim Creat Clear Calc 53.51, Est GFR (MDRD) Af Amer 84, Est GFR (MDRD) Non-Af 69, BUN/Creatinine Ratio 25.0 H, Glucose 94, Calcium 8.6, Total Bilirubin 0.40, AST 20, ALT 24, Alkaline Phosphatase 71, Troponin I 0.177 H, Total Protein 6.7, Albumin 3.1 L, Globulin 3.6, Albumin/Globulin Ratio 0.9 08/13/19 15:45: Lactic Acid 1.8 08/13/19 19:04: Troponin I 0.435 H 08/13/19 21:50: Troponin I 0.648 H* 08/14/19 05:45: WBC 11.4 H, RBC 3.57 L, Hgb 10.9 L, Hct 32.4 L, MCV 90.8, MCH 30.5, MCHC 33.6, RDW Std Deviation 44.7 H, RDW Coeff of Dane 13.4, Plt Count 170, MPV 13.0 H, Immature Gran % (Auto) 1.000 H, Neut % (Auto) 89.1 H, Lymph % (Auto) 6.1 L, Bradley % (Auto) 3.8, Eos % (Auto) 0.0, Baso % (Auto) 0.0, Absolute Neuts (auto) 10.2 H, Absolute Lymphs (auto) 0.70 L, Nucleated RBC % 0 Current Medications Acetaminophen (Tylenol) 650 mg PO Q6H PRN PRN PRN Reason: Pain Score 1-3/Temp > 100.7 F Albuterol Sulfate (Ventolin Aerosols) 2.5 mg INHALATION Q2H PRN PRN PRN Reason: SOB/Wheezing Albuterol/Ipratropium (Duoneb) 3 ml INHALATION Q4HWA.RT [facility] Last Admin: 08/14/19 07:15 Dose: Not Given Documented by: Aspirin (Ecotrin) 81 mg PO DAILY@0800 [facility] Last Admin: 08/14/19 08:50 Dose: 81 mg Documented by: Clopidogrel Bisulfate (Plavix) 75 mg PO DAILY [facility] Last Admin: 08/14/19 08:52 Dose: 75 mg Documented by: Folic Acid (Folic Acid) 0.5 mg PO DAILY@0800 [facility] Last Admin: 08/14/19 08:50 Dose: 0.5 mg Documented by: Furosemide (Lasix) 20 mg PO DAILY [facility] Last Admin: 08/14/19 08:52 Dose: 20 mg Documented by: Glucagon () 1 mg IM .X1 PRN PRN Reason: Hypoglycemia Dextrose (Dextrose 10%-Water) 250 mls @ 999 mls/hr IV .Q16M PRN; Protocol PRN Reason: HYPOGLYCEMIA Sodium Chloride () 1,000 mls @ 0 mls/hr IV .Q0M [facility] Losartan Potassium (Cozaar) 25 mg PO DAILY [facility] Last Admin: 08/14/19 08:52 Dose: 25 mg Documented by: Nitroglycerin (Nitrostat) 0.4 mg SUBLINGUAL Q5M PRN PRN Reason: chest pain Ondansetron HCl (Zofran) 4 mg IV Q8H PRN PRN PRN Reason: NAUSEA/VOMITING Pantoprazole Sodium (Protonix) 40 mg PO DAILY [facility] Last Admin: 08/14/19 08:52 Dose: 40 mg Documented by: Prednisone () 40 mg PO DAILY@0800 [facility] Last Admin: 08/14/19 08:50 Dose: 40 mg Documented by: Sodium Chloride () 10 - 40 ml IV UD PRN PRN Reason: SALINE FLUSH Sotalol HCl (Betapace (G)) 120 mg PO BID [facility] Last Admin: 08/14/19 08:51 Dose: 120 mg Documented by: Medical Necessity - Tobacco Use Smoking Status: Never smoker Assessment/Plan 1. Abnormal troponin- appear chronically elevated. Hx CAD s/p stent. Follows with Dr. Lawrence. Enzymes did trend upwards. Cardiology consult placed. Plan for cath in a.m. 2. Debility, weakness- suspect multi-factorial due to recent URI, mild dehydration and valium administration in PCP office prior to admission. PT/OT. 3. Recent human metapneumovirus-continue supportive treatment. Continue prednisone 40 mg daily for 5 days. Chest x-ray on admission without acute process. Continue Augmentin 875 mg p.o. twice daily given coarse breath sounds right base and mild leukocytosis. Patient received IV antibiotics in PCP office yesterday. 4. Mild dehydration-further IV fluids discontinued. No PILAR. 5. Chronic systolic CHF/ischemic cardiomyopathy status post AICD-prior echocardiogram showed an EF of 20%, stage I diastolic dysfunction. Continue losartan, sotalol regimen. 6. Hypertension-stable, continue home regimen of losartan, sotalol. 7. Hyperlipidemia-continue statin. 8. Carotid artery disease-continue aspirin, Plavix, statin. 9. GERD- continue PPI. 10. Hiatal hernia 11. DDD- Tylenol PRN for pain. 12. 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 Defer to outpatient. DVT prophylaxis- Lovenox This patient was seen by CHELSI Mueller under the supervision of Dr. Ibarra. <Koby Ibarra E - Last Filed: 08/14/19 14:32> - Physical Exam Vitals/I&O's: Vital Signs Temp Pulse Resp BP Pulse Ox 97.8 F 65 12 159/78 H 98 08/14/19 09:30 08/14/19 09:30 08/14/19 09:30 08/14/19 09:30 08/14/19 09:30 Oxygen Delivery Method Room Air Weight: 179 lb 10.828 oz Body Mass Index (BMI) 25.7 Orthostatic Vital Signs Start: 08/13/19 21:26 Freq: q24h Status: Active Protocol: Activity Type Activity Date Activity User E-Sign Co-Sign Detail Recorded Client Recorded Date Recorded By Document 08/13/19 21:26 CM [id number] 08/13/19 21:29 CM 08/13/19 21:26 Orthostatic Vitals Standing -Blood Pressure (90/60-120/80) 134/72 H -Extremity Use Right Arm -Pulse Rate (60-100) 73 Sitting -Blood Pressure (90/60-120/80) 128/72 H -Extremity Use Right Arm -Pulse Rate (60-100) 73 Lying -Blood Pressure (90/60-120/80) 133/62 H -Extremity Use Right Arm -Pulse Rate (60-100) 67 Intake and Output for Last 24 Hours 08/12/19 08/13/19 08/14/19 23:59 23:59 23:59 Intake Total 857.5 / 857.5 500 / 500 Balance 857.5 / 857.5 500 / 500 Laboratory Results 08/13/19 15:30: Urine Color Yellow, Urine Clarity Clear, Urine pH 6.0, Ur Specific [place] 1.010, Urine Protein Negative, Urine Glucose (UA) Normal, Urine Ketones Negative, Urine Occult Blood 10 H, Urine Nitrite Negative, Urine Bilirubin Negative, Urine Urobilinogen Normal, Ur Leukocyte Esterase Negative, Urine RBC 0-5 SEEN, Urine WBC 0 SEEN, Ur Squamous Epith Cells 0 SEEN, Urine Bacteria 0 SEEN, Urine Mucus 0 SEEN 08/13/19 15:45: WBC 12.4 H, RBC 3.82 L, Hgb 11.6 L, Hct 34.9 L, MCV 91.4, MCH 30.4, MCHC 33.2, RDW Std Deviation 45.7 H, RDW Coeff of Dane 13.5, Plt Count 166, MPV 13.3 H, Immature Gran % (Auto) 1.200 H, Neut % (Auto) 82.7 H, Lymph % (Auto) 9.0 L, Bradley % (Auto) 6.4, Eos % (Auto) 0.5, Baso % (Auto) 0.2, Absolute Neuts (auto) 10.3 H, Absolute Lymphs (auto) 1.12, Nucleated RBC % 0 08/13/19 15:45: PT 14.3, INR 1.1, APTT 24.7 08/13/19 15:45: Sodium 140, Potassium 4.5, Chloride 109 H, Carbon Dioxide 28.0, Anion Gap 3 L, BUN 27 H, Creatinine 1.08, Estim Creat Clear Calc 53.51, Est GFR (MDRD) Af Amer 84, Est GFR (MDRD) Non-Af 69, BUN/Creatinine Ratio 25.0 H, Glucose 94, Calcium 8.6, Total Bilirubin 0.40, AST 20, ALT 24, Alkaline Phosphatase 71, Troponin I 0.177 H, Total Protein 6.7, Albumin 3.1 L, Globulin 3.6, Albumin/Globulin Ratio 0.9 08/13/19 15:45: Lactic Acid 1.8 08/13/19 19:04: Troponin I 0.435 H 08/13/19 21:50: Troponin I 0.648 H* 08/14/19 05:45: WBC 11.4 H, RBC 3.57 L, Hgb 10.9 L, Hct 32.4 L, MCV 90.8, MCH 30.5, MCHC 33.6, RDW Std Deviation 44.7 H, RDW Coeff of Dane 13.4, Plt Count 170, MPV 13.0 H, Immature Gran % (Auto) 1.000 H, Neut % (Auto) 89.1 H, Lymph % (Auto) 6.1 L, Bradley % (Auto) 3.8, Eos % (Auto) 0.0, Baso % (Auto) 0.0, Absolute Neuts (auto) 10.2 H, Absolute Lymphs (auto) 0.70 L, Nucleated RBC % 0 Current Medications Acetaminophen (Tylenol) 650 mg PO Q6H PRN PRN PRN Reason: Pain Score 1-3/Temp > 100.7 F Albuterol Sulfate (Ventolin Aerosols) 2.5 mg INHALATION Q2H PRN PRN PRN Reason: SOB/Wheezing Albuterol/Ipratropium (Duoneb) 3 ml INHALATION Q4HWA.RT [facility] Last Admin: 08/14/19 07:15 Dose: Not Given Documented by: Amoxicillin/Clavulanate Potassium (Augmentin Tablet) 875 mg PO BID [facility] Aspirin (Ecotrin) 81 mg PO DAILY@0800 [facility] Last Admin: 08/14/19 08:50 Dose: 81 mg Documented by: Clopidogrel Bisulfate (Plavix) 75 mg PO DAILY [facility] Last Admin: 08/14/19 08:52 Dose: 75 mg Documented by: Folic Acid (Folic Acid) 0.5 mg PO DAILY@0800 [facility] Last Admin: 08/14/19 08:50 Dose: 0.5 mg Documented by: Furosemide (Lasix) 20 mg PO DAILY [facility] Last Admin: 08/14/19 08:52 Dose: 20 mg Documented by: Glucagon () 1 mg IM .X1 PRN PRN Reason: Hypoglycemia Dextrose (Dextrose 10%-Water) 250 mls @ 999 mls/hr IV .Q16M PRN; Protocol PRN Reason: HYPOGLYCEMIA Sodium Chloride () 1,000 mls @ 0 mls/hr IV .Q0M [facility] Losartan Potassium (Cozaar) 25 mg PO DAILY [facility] Last Admin: 08/14/19 08:52 Dose: 25 mg Documented by: Nitroglycerin (Nitrostat) 0.4 mg SUBLINGUAL Q5M PRN PRN Reason: chest pain Ondansetron HCl (Zofran) 4 mg IV Q8H PRN PRN PRN Reason: NAUSEA/VOMITING Pantoprazole Sodium (Protonix) 40 mg PO DAILY [facility] Last Admin: 08/14/19 08:52 Dose: 40 mg Documented by: Prednisone () 40 mg PO DAILY@0800 [facility] Last Admin: 08/14/19 08:50 Dose: 40 mg Documented by: Sodium Chloride () 10 - 40 ml IV UD PRN PRN Reason: SALINE FLUSH Sotalol HCl (Betapace (G)) 120 mg PO BID [facility] Last Admin: 08/14/19 08:51 Dose: 120 mg Documented by: Assessment/Plan Hospitalist note: I am seeing this patient in conjunction with Amairani Álvarez. I independently seen and examined the patient. Progress note above, laboratory data and imaging studies reviewed and I concur with the above treatment plan. Patient has been treated for bronchitis as outpatient with IV Rocephin and Zithromax. Yesterday, he went to his PCPs office, received IV Rocephin and Zithromax in addition to Phenergan for nausea and he had what appeared to be myoclonic jerks, was anxious and he received 10 mg of Valium. Today, he is alert and oriented x3. He still complaining of cough, no sputum production. Denied chest pain or shortness of breath. His vital signs are stable. - Physical Exam General: Alert, Oriented x3, Cooperative, No apparent distress. HEENT: Atraumatic, PERRLA, EOMI. Neck: Supple, No JVD, Negative Carotid Bruits, Trachea Midline, Thyroid Normal. Lungs: Diminished breath sounds at the bases, crackles on the right base, no rhonchi or wheezes. Cardiovascular: Regular rate, Regular Rhythm, Normal S1, Normal S2, PMI Normal. Abdomen: Bowel Sounds Present, Soft, Non Tender, Non-Distended, No Hepato-splenomegaly. Extremities: No clubbing, No cyanosis, No edema Skin: No rashes, No breakdown Neurological: Cranial nerves are intact, neuro grossly intact Vital Signs are stable. Assessment and plan: #1 viral acute bronchitis: Patient has been on IV Rocephin Zithromax as outpatient as well as prednisone. Chest x-ray showed no obvious infiltrate. Patient has been afebrile, WBC is trending down. Other vital signs are stable. He is on bronchodilators, started on Augmentin today. Plan to continue prednisone for 5 days, continue Augmentin. #2 abnormal cardiac enzymes: Patient does have chronic elevation of troponin but it has been trending up. He denied any chest pain. He had extensive cardiac history with multiple heart stents. EKG revealed no acute, changes. Cardiology consulted and planning for cardiac catheterization tomorrow. Patient is on aspirin, Plavix, losartan and sotalol. #3 other chronic medical problems: Stable, continue current medication as above. This note was generated with [employer] software. It may contain incorrect words, spelling, and punctuation that were not noted in checking the note before signing. Code Visit OBSV E&M: 42632 Subsequent observation care L2
[2019-08-14] MEDS: Amox/Clavulanate 875 MG Tablet PO (21:26)
[2019-08-15] VITALS (17 sets, daily range): BP systolic 106–149; BP diastolic 53–77; PULSE 58–69; RESP 15–18; TEMP 36.5–36.8; O2SAT 93–98
[2019-08-15 05:19] LABS: Hematocrit 33.7 % (40-54); Hemoglobin 11.2 g/dL (13.0-16.5); Mean Corp Hgb Conc 33.2 g/dL (32-36); Mean Corpuscular Volume 90.3 fL (80-94); Platelet Count 161 K/mm3 (150-450); RBC Distribution Width CV 13.5 % (11.6-14.6); RBC Distribution Width SD 44.3 fl (35.1-43.9); Red Blood Count 3.73 M/mm3 (4.6-6.2)
[2019-08-15 05:41] LABS: Anion Gap 4 (5-15); BUN 28 mg/dL (7-18); BUN/Creat Ratio 28.2 RATIO (10-20); Calcium,Total 8.5 mg/dL (8.5-10.1); Chloride 105 mmol/L (98-107); Creatinine, Serum 0.99 mg/dL (0.70-1.30); EST Glomerular Filtration Rate 77 mL/min (>60); Est Glom Filt Rate - Afr Amer 93 mL/min (>60); Estimated Creatinine Clearance 58.38 ml/min; Glucose 135 mg/dL (74-106); Sodium Level 138 mmol/L (136-145)
--- NOTE | 2019-08-15 05:55 | EKG12_ITS ---
Test Reason : AM EKG Blood Pressure : / mmHG Vent. Rate : 060 BPM Atrial Rate : 060 BPM P-R Int : 194 ms QRS Dur : 124 ms QT Int : 526 ms P-R-T Axes : -17 -41 -32 degrees QTc Int : 526 ms Atrial-paced rhythm Left axis deviation Left ventricular hypertrophy with QRS widening Abnormal ECG When compared with ECG of 13-AUG-2019 15:36, MANUAL COMPARISON REQUIRED, DATA IS UNCONFIRMED Confirmed by ANTHONY ROCHA, ALISON ([id number]), news video editor YAS HARRELL ([id number]) on 08/16/2019 1:22:57 PM Referred By: DR MERRILL Confirmed By:HAMZAH CRUZ MD
[2019-08-15] MEDS: Clopidogrel Bisulfate 75 MG Tablet PO (06:18)
[2019-08-15] MEDS: Losartan Potassium 25 MG Tablet PO (06:18)
[2019-08-15] MEDS: predniSONE 20 MG Tablet 40 MG PO (06:18)
[2019-08-15] MEDS: Aspirin E.C. 81 MG Tablet PO (06:18)
[2019-08-15] MEDS: Pantoprazole Sodium 40 MG Tablet PO (06:18)
[2019-08-15] MEDS: Sotalol Hydrochloride 80 MG Tablet 120 MG PO (06:19)
[2019-08-15] MEDS: DiphenhydrAMINE 25 MG Capsule 50 MG PO (07:41)
[2019-08-15] MEDS: 0.9% Normal Saline 1,000 ML 15 ML IV (07:43)
--- NOTE | 2019-08-15 07:51 | NURSING ---
Report called to receiving CHRISTIN Shannon in cath lab radiological technologist. Loc [facility]
--- NOTE | 2019-08-15 09:12 | PN.CARD_ITS ---
Subjectve: Patient seen and evaluated. Objective: Vital Signs Temp Pulse Resp BP Pulse Ox 98.2 F 60 16 147/71 H 95 08/15/19 09:00 08/15/19 09:00 08/15/19 09:00 08/15/19 09:00 08/15/19 09:00 Oxygen Delivery Method Room Air Weight: 179 lb 10.828 oz Body Mass Index (BMI) 25.7 Orthostatic Vital Signs Start: 08/13/19 21:26 Freq: q24h Status: Active Protocol: Activity Type Activity Date Activity User E-Sign Co-Sign Detail Recorded Client Recorded Date Recorded By Document 08/13/19 21:26 CM [id number] 08/13/19 21:29 CM 08/13/19 21:26 Orthostatic Vitals Standing -Blood Pressure (90/60-120/80) 134/72 H -Extremity Use Right Arm -Pulse Rate (60-100) 73 Sitting -Blood Pressure (90/60-120/80) 128/72 H -Extremity Use Right Arm -Pulse Rate (60-100) 73 Lying -Blood Pressure (90/60-120/80) 133/62 H -Extremity Use Right Arm -Pulse Rate (60-100) 67 Intake and Output for Last 24 Hours 08/13/19 08/14/19 08/15/19 23:59 23:59 23:59 Intake Total 857.5 / 857.5 1190 / 1190 120 / 120 Output Total 750 / 750 Balance 857.5 / 857.5 1190 / 1190 -630 / -630 General: Awake, Alert, Oriented x 3 HEENT: PERRL, EOMI, Sclera Non Icteric Neck: Supple, Good ROM, No Lymph Node Enlargement Lungs: Clear to auscultation Cardiovascular: Regular Rhythm, Normal S1, Normal S2, No Murmurs, No Rubs, No Gallops Vascular: No Carotid Bruits, Normal Femoral Pulses, Normal Radial Pulses, Normal Dorsalis Pedal Pulse, Normal Posterior Tibial Pulses Abdomen: Bowel Sounds Present, Soft, Non Tender, No HSM, No Organomegaly Extremities: No Cyanosis, No Clubbing, No edema Musculoskeletal: No Erythema Skin: No Rashes Lymphatic: No Lymph Node Enlargement Neurological: No Focal Motor or Sensory Deficit Psych/Mental Status: Appropriate 08/15/19 05:10: WBC 11.0, RBC 3.73 L, Hgb 11.2 L, Hct 33.7 L, MCV 90.3, MCH 30.0, MCHC 33.2, Plt Count 161, MPV 13.0 H 08/15/19 05:10: Sodium 138, Potassium 4.0, Chloride 105, Carbon Dioxide 29.0, Anion Gap 4 L, BUN 28 H, Creatinine 0.99, Est GFR (MDRD) Af Amer 93, Est GFR (MDRD) Non-Af 77, BUN/Creatinine Ratio 28.2 H, Glucose 135 H, Calcium 8.5 Rhythm: EKG: ECHO: Stress Test: Cardiac Cath: PCI: CT Surgery: Holter monitor: EPS: PPM: CXR: Chest CT Scan: Medical Necessity - Tobacco Use Smoking Status: Never smoker Assessment/Plan 1. Coronary artery disease non-ST elevation myocardial infarction * Patient presents with bronchitis and is noted to have a non-ST elevation myocardial infarction. He underwent cardiac catheterization with demonstrated the following: Left main coronary artery with distal 30 to 40% stenosis Left anterior descending artery previously stented with patent stent in the proximal region and then in the mid to distal region tapers and is totally occluded Left circumflex artery with proximal long 70% stenotic area. Dominant large right coronary artery previously stented with patent stents and distal mild disease. Hypertension. Severe left ventricular systolic dysfunction with an akinetic mid to apical anterior wall and an akinetic mid inferior wall segment. The patient has had severe reduce the ventricular ejection fraction in the past and a viability study has demonstrated no viability to the anterior wall. This was discussed extensively amongst 2 interventionalists and myself. The ultimate decision was that if any angioplasty would be undertaken the circumflex artery can be revascularized. Aggressive risk factor modification should however be undertaken and it was felt that this may be too high risk to be done here due to the severe left ventricular systolic dysfunction. We will try and maximize medical therapy by adding amlodipine 5 mg a day Continue losartan 50 mg a day Continue sotalol Patient has not tolerated isosorbide in the past Patient can be discharged later today for outpatient follow-up after he heals from the bronchitis 2. Hypertension * The above is not very well controlled and will be treated as above * 3. Severe left ventricular systolic dysfunction * Continue above therapy. * Patient is on sotalol as beta-suha and we have not been able to take him of this as he has a propensity to VT. * 4. Status post ICD implantation * Patient has not had no recent ICD discharges * * Thank you for allowing me to participate in the care of your patient. Please don't hesitate to call if any issues arise
--- NOTE | 2019-08-15 10:00 | CL.D_ITS ---
Patient Name: FLEX GARCIA Study Date: 08/15/2019 Performing: Roque Lawrence MD Ht: 70 inches 178 cm : 1935 Wt: 181 lbs 82 kg Age: 84 Gender: male BSA: 2 PROCEDURE(S) PERFORMED DE15-JIX/COR/LV CLINICAL PROFILE AND INDICATIONS Indications: Suspected CAD Heart Failure: None Stress/Imaging Stress/Image Study Performed: No CAD Presentations: Stable angina. CONCLUSIONS Severe coronary artery disease with mild to distal left main coronary stenosis, totally occluded mid to distal left anterior descending artery and moderately severe disease noted in the proximal left ci rcumflex artery. Severe left ventricular systolic dysfunction noted RECOMMENDATIONS Will discuss high risk intervention to the proximal circumflex artery especially as the anterior wall has demonstrated no viability and he has severe low ventricular systolic dysfunction. Would conside r transfer to a tertiary care center as an outpatient.. DESCRIPTION OF PROCEDURE The patient arrived to the procedure lab. The risks and benefits of the procedure as well as a full d escription of our services here and current unavailability of surgical backup were fully explained to the patient and/or their significant other prior to the catheterization. The Timeout was completed, verifying the correct patient and procedure. The patient's procedural site was prepped and draped in the usual fashion. Local anesthetic was given subcutaneously to right groin region with Lidocaine 2%. Using a modified Seldinger technique, arterial access was obtained via the right femoral artery, a 5 Fr sheath was inserted. Left Coronary Artery selective angiography was performed in multiple views u sing a 5 Fr. JL4 catheter. Right Coronary Artery selective angiography was then performed in multiple views using a 5 Fr. 3DRC (Chaparro) catheter. Left Ventriculography was performed in POSADA projection using a 5 Fr. Pigtail catheter. LV to AO pullback pressures were then recorded.The arterial sheath was pulled and manual compression applied until hemostasis is achieved. CORONARY ANGIOGRAPHY DOMINANCE: Right Dominant LEFT HEART ASSESSMENT Left Ventricular Ejection Fraction: by LV Gram 20 % Anterior Akinesis. Apical Akinesis. Inferior Mid Akinesis LEFT MAIN: 40 % Stenosis LEFT ANTERIOR DESCENDING ARTERY: PROX LAD: Previously placed stent is patent MID LAD: Instent restenosis 30 % DISTAL LAD: is occluded CIRCUMFLEX ARTERY: PROX CIRC: long 70 % Stenosis RIGHT CORONARY ARTERY: PROX RCA: Previously placed stent is patent MID RCA: Previously placed stent is patent COMPLICATIONS No Complications PROCEDURE MEDICATIONS Versed 1 mg IV Oxygen: 2 L/min via nasal cannula SUMMARY OF HEMODYNAMIC DATA Time AIR REST ECG 07:57:27 AO 176/85 (120) SA 08:12:08 LV 168/4, 18 08:19:43 LV 168/5, 20 08:19:49 LV 142/7, 12 08:20:30 LV 141/8, 12 08:20:36 LV 167/1, 21 08:20:47 LV 169/2, 21 08:20:53 LVp 175/0, 22 08:20:59 AOp 177/72 (113) 08:21:04 Signed By Roque Lawrence MD On 08/15/2019 09:59:34 Roque Lawrence MD
[2019-08-15] MEDS: Losartan Potassium 50 MG Tablet PO (10:38)
[2019-08-15] MEDS: Amox/Clavulanate 875 MG Tablet PO (10:38)
[2019-08-15] MEDS: Folic Acid 1 MG Tablet 0.5 MG PO (10:38)
[2019-08-15] MEDS: Furosemide 20 MG Tablet PO (10:38)
[2019-08-15] MEDS: amLODIPine 2.5 MG Tablet PO (10:38)
--- NOTE | 2019-08-15 10:45 | CASEMGMT ---
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 RN ZOE introduced self and role at [facility]. Pt voices understanding and consents to assessment at this time. Pt resting in bed in no distress at this time. at bedside. Pt is A/O at this time and answers all questions appropriately. Care providers, pharmacy, and demographics verified at this time. PCP: Dr Pena Specialists: Dr Lawrence--cardiology Preferred Pharmacy: [facility] [place] Insurance: [facility], [employer] Prescription Benefit: Yes Living Will/HPOA: Has both LW and Healthcare POA, who is his , Mary. LNOK: Living Arrangements: Lives with his in one-story home w/3 steps to enter. Has chair lift to basement. Independent. Transportation: Pt states drives self and states no transportation concerns at this time. also drives. DME: Has a cane but does not use it. Has an adjustable bed (not a hospital bed). States is going to be putting in grab bars. Denies other needs. HHC/SNF: No history of either and no needs identified. PT/OT evals reviewed. PT recommended further therapy. Pt/ made aware. PT declines OP therapy at this time, stating he has a treadmill and other exercise equipment in the home and prefers to just doing exercises @ home than going somewhere. Pt wishes to return home and states has no concerns with going home at time of discharge. CM to follow for any discharge planning/needs. Pt/ voices no concerns/needs at this time. Advised them to ask for CM if any further questions/concerns/needs arise. They voice understanding. PLAN: Home Chris BELTRE RN, CM
--- NOTE | 2019-08-15 14:44 | DCINST_ITS ---
- Discharge Diagnoses Current Active Problems: Current Active and Chronic Problems (Last Updated 08/15/19 @ 09:57 by Oumou Jose) Elevated troponin I level (Chronic) You will use the following diet at home:: Cardiac Discharge Activity: Return to Normal Activity Allergies/Adverse Reactions: Allergies hydrochlorothiazide Allergy (Severe, Verified 08/13/19 14:15) Severe itching rash ranolazine [From Ranexa] Adverse Reaction (Severe, Verified 08/13/19 14:15) Rash omeprazole Adverse Reaction (Verified 08/13/19 14:15) Unknown Phenothiazines Adverse Reaction (Verified 08/13/19 14:15) Unknown Voakebd-Zcq-Tja Reductase Inhibitor Adverse Reaction (Verified 08/13/19 14:15) myalgias PHENEGRANZOLE Adverse Reaction (Uncoded 08/13/19 14:15) Unknown Medications to take at Discharge Aspirin E.C. [Ecotrin] 81 mg PO DAILY@0800 07/11/13 Pantoprazole Sodium [Protonix] 40 mg PO DAILY 10/29/16 Clopidogrel Bisulfate [Plavix] 75 mg PO DAILY 04/20/18 nitroglycerin 0.4 mg sublingual tablet 0.4 mg SUBLINGUAL Q5-15M PRN #25 tab 09/19/18 folic acid 400 mcg tablet 0.4 mg PO DAILY 10/23/18 sotalol 120 mg tablet 120 mg PO BID #180 tab 07/01/19 furosemide 40 mg tablet 20 mg PO DAILY #90 tab 07/29/19 losartan 50 mg tablet 25 mg PO DAILY tab 07/29/19 predniSONE tablet 40 mg PO DAILY@0800 #8 tab 08/14/19 Amlodipine [Norvasc] 2.5 mg PO DAILY #30 tab 08/15/19 Amox/Clavulanate Tablet [Augmentin Tablet] 875 mg PO BID #6 tab 08/15/19 Losartan Potassium [Cozaar] 50 mg PO DAILY #30 tab 08/15/19 The following prescriptions were given: Amox/Clavulanate Tablet [Augmentin Tablet] 875 mg PO BID #6 tab Transmission Status: Pending to [id number] Losartan Potassium [Cozaar] 50 mg PO DAILY #30 tab Transmission Status: Pending to [id number] Amlodipine [Norvasc] 2.5 mg PO DAILY #30 tab Transmission Status: Pending to [id number] predniSONE tablet 40 mg PO DAILY@0800 #8 tab Transmission Status: Received by [id number] Primary Care Physician: Jacques Pena Chi, MD [Primary Care Provider] - Please follow up with your Primary Care Physician in: 1-2 weeks Test Results: Test results from this visit will be discussed in further detail at your follow- up appointment, if applicable. Please Follow Up With: Roque Lawrence MD When: as directed Proposed Discharge Date: 08/15/19
--- NOTE | 2019-08-15 15:42 | PCM.DC.SUM ---
<Nader Alonso - Last Filed: 08/15/19 15:42> Discharge Date and Diagnosis Date of Admission: 08/13/19 Date of Discharge: 08/15/19 - Primary Discharge Diagnosis Acute bronchitis Recent human metapneumovirus URI NSTEMI Chronic systolic CHF, Ischemic CM Hx AICD placement HTN HLD Carotid artery dz GERD hiatal hernia anxiety - Secondary Discharge Diagnosis Chronic Problems (Last Updated 08/15/19 @ 09:57 by Oumou Jose) Elevated troponin I level (Chronic) Atherosclerosis of coronary artery of [place] heart with angina pectoris (Chronic) PCI-DOUGLAS-LAD 2.0 x 30 mm Resolute Victoriano, 2.5 x 38 mm and 3.0 x 23 mm Xience Soledad 04/27/18; GYB-LOT-Hly-Distal RCA w/ 4.0 x 20 mm Promus Premier and DOUGLAS-Prox RCA w/ 4.0 x 12 mm Promus Premier 11/18/2014 ;Cutting balloon PTCA of posterior ventricular branch of RCA and PCI-Stent Prox Lad w/ 3.0 x 8 mm Penta Stent and Mid LAD w/ 3.0 x 13 mm Penta Stent 03/05/2002; Left carotid artery stenosis (Chronic) Ischemic cardiomyopathy (Chronic) Severe left ventricular systolic dysfunction with an akinetic mid to apical anterior wall and an akinetic mid inferior wall segment, in the past and a viability study has demonstrated no viability to the anterior wall. 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) Essential (primary) hypertension (Chronic) Non-ST elevation (NSTEMI) myocardial infarction (Chronic 08/14/19) 04/2018 History of implantable cardiac defibrillator (ICD) (Chronic 05/17/10) History of coronary artery stent placement (Chronic 04/27/18) PCI-DOUGLAS-LAD 2.0 x 30 mm Resolute Victoriano, 2.5 x 38 mm and 3.0 x 23 mm Xience Soledad 04/27/18; CJW-UXB-Nqd-Distal RCA w/ 4.0 x 20 mm Promus Premier and DOUGLAS-Prox RCA w/ 4.0 x 12 mm Promus Premier 11/18/2014 ;Cutting balloon PTCA of posterior ventricular branch of RCA and PCI-Stent Prox LAD w/ 3.0 x 8 mm Penta Stent and Mid LAD w/ 3.0 x 13 mm Penta Stent 03/05/2002; Chronic systolic (congestive) heart failure (Chronic) Nonsustained ventricular tachycardia (Chronic) HLD (hyperlipidemia) (Chronic) Hospital Course and Treatment Imaging Results: Left heart cath: CONCLUSIONS Severe coronary artery disease with mild to distal left main coronary stenosis, totally occluded mid to distal left anterior descending artery and moderately severe disease noted in the proximal left circumflex artery. Severe left ventricular systolic dysfunction noted RECOMMENDATIONS Will discuss high risk intervention to the proximal circumflex artery especially as the anterior wall has demonstrated no viability and he has severe low ventricular systolic dysfunction. Would consider transfer to a tertiary care center as an outpatient.. RAD/Chest 1 View (Portable) IMPRESSION: Cardiomegaly. Consults: Howard - cardiology Operations: None Procedures: Cardiac catheterization Summary of Care Provided: Hospital course: The patient is a 84 year old M with pmhx as above notable for CAD with multiple stents, systolic congestive heart failure, ischemic cardiomyopathy, AICD in place, who presented to the emergency room with weakness and malaise. He was sent from Dr. Pena's office. He had been treated recently for human metapneumovirus infection, he also been on antibiotics for ongoing bronchitis along with steroids. He came to the ER and had elevated troponin, leukocytosis and negative CXR, No fever. He was admitted for acute bronchitis and elevated troponin. Troponin peaked at 0.648. Cardiology was consulted. He was taken for a left heart cath with findings as above - severe CAD. Cardiology recommended outpatient referral to tertiary center for evaluation for possible intervention in the future. Losartan was increased and low dose amlodipine was initiated. He had not tolerated imdur in the past. His respiratory complaints resolved with augmentin and steroids. He was discharged home with augmentin, and a steroid taper. He will need to follow up with cardiology as directed and with his PCP in 1-2 weeks. This patient was seen by Nader Alonso PA-C under the supervision of Doctor Ibarra. [] - Physical Exam Vitals/I&O's: Vital Signs Temp Pulse Resp BP Pulse Ox 98.2 F 63 18 106/53 L 94 08/15/19 14:00 08/15/19 15:10 08/15/19 14:00 08/15/19 14:00 08/15/19 14:00 Oxygen Delivery Method Room Air Weight: 179 lb 10.828 oz Body Mass Index (BMI) 25.7 Orthostatic Vital Signs Start: 08/13/19 21:26 Freq: q24h Status: Active Protocol: Activity Type Activity Date Activity User E-Sign Co-Sign Detail Recorded Client Recorded Date Recorded By Document 08/13/19 21:26 CM [id number] 08/13/19 21:29 CM 08/13/19 21:26 Orthostatic Vitals Standing -Blood Pressure (90/60-120/80) 134/72 H -Extremity Use Right Arm -Pulse Rate (60-100) 73 Sitting -Blood Pressure (90/60-120/80) 128/72 H -Extremity Use Right Arm -Pulse Rate (60-100) 73 Lying -Blood Pressure (90/60-120/80) 133/62 H -Extremity Use Right Arm -Pulse Rate (60-100) 67 Intake and Output for Last 24 Hours 08/13/19 08/14/19 08/15/19 23:59 23:59 23:59 Intake Total 857.5 / 857.5 1190 / 1190 691.25 / 691.25 Output Total 850 / 850 Balance 857.5 / 857.5 1190 / 1190 -158.75 / -158.75 General: Alert, Oriented x3, Cooperative HEENT: Atraumatic, PERRLA, EOMI, Normocephalic Neck: Supple, No JVD, Negative Carotid Bruits Lungs: Clear to auscultation, Normal air movement Cardiovascular: Regular rate, No murmurs Abdomen: Bowel Sounds Present, Soft, Non Tender Extremities: No edema, Capillary Refill Less than 3 Seconds Skin: No rashes, No breakdown Musculoskeletal: No Tenderness to Palpation of Joints or Extremities Neurological: Cranial nerves II-XII grossly intact Psych/Mental Status: Normal Affect, Appropriate, Alert and oriented to time, place, person, mood and affect Laboratory Results 08/15/19 05:10: WBC 11.0, RBC 3.73 L, Hgb 11.2 L, Hct 33.7 L, MCV 90.3, MCH 30.0, MCHC 33.2, RDW Std Deviation 44.3 H, RDW Coeff of Dane 13.5, Plt Count 161, MPV 13.0 H 08/15/19 05:10: Sodium 138, Potassium 4.0, Chloride 105, Carbon Dioxide 29.0, Anion Gap 4 L, BUN 28 H, Creatinine 0.99, Estim Creat Clear Calc 58.38, Est GFR (MDRD) Af Amer 93, Est GFR (MDRD) Non-Af 77, BUN/Creatinine Ratio 28.2 H, Glucose 135 H, Calcium 8.5 Current Medications Acetaminophen (Tylenol) 650 mg PO Q6H PRN PRN PRN Reason: Pain Score 1-3/Temp > 100.7 F Albuterol Sulfate (Ventolin Aerosols) 2.5 mg INHALATION Q2H PRN PRN PRN Reason: SOB/Wheezing Albuterol/Ipratropium (Duoneb) 3 ml INHALATION Q4HWA.RT [facility] Last Admin: 08/15/19 10:29 Dose: Not Given Documented by: Amlodipine Besylate (Norvasc) 2.5 mg PO DAILY [facility] Last Admin: 08/15/19 10:38 Dose: 2.5 mg Documented by: Amoxicillin/Clavulanate Potassium (Augmentin Tablet) 875 mg PO BID [facility] Last Admin: 08/15/19 10:38 Dose: 875 mg Documented by: Aspirin (Ecotrin) 81 mg PO DAILY@0800 [facility] Last Admin: 08/15/19 06:18 Dose: 81 mg Documented by: Clopidogrel Bisulfate (Plavix) 75 mg PO DAILY [facility] Last Admin: 08/15/19 06:18 Dose: 75 mg Documented by: Folic Acid (Folic Acid) 0.5 mg PO DAILY@0800 [facility] Last Admin: 08/15/19 10:38 Dose: 0.5 mg Documented by: Furosemide (Lasix) 20 mg PO DAILY [facility] Last Admin: 08/15/19 10:38 Dose: 20 mg Documented by: Glucagon () 1 mg IM .X1 PRN PRN Reason: Hypoglycemia Heparin Sodium (Beef Lung) (Heparin 500 Unit/5 Ml (100/Ml)) 500 unit IV UD PRN PRN Reason: HEPARIN FLUSH Dextrose (Dextrose 10%-Water) 250 mls @ 999 mls/hr IV .Q16M PRN; Protocol PRN Reason: HYPOGLYCEMIA Sodium Chloride () 1,000 mls @ 0 mls/hr IV .Q0M [facility] Last Infusion: 08/15/19 14:08 Dose: Infused Documented by: Labetalol HCl (Trandate) 5 mg IV X1 PRN PRN Reason: SBP > 160 prior to sheath pull Stop: 08/17/19 09:10 Losartan Potassium (Cozaar) 50 mg PO DAILY [facility] Last Admin: 08/15/19 10:38 Dose: 50 mg Documented by: Nitroglycerin (Nitrostat) 0.4 mg SUBLINGUAL Q5M PRN PRN Reason: chest pain Ondansetron HCl (Zofran) 4 mg IV Q8H PRN PRN PRN Reason: NAUSEA/VOMITING Pantoprazole Sodium (Protonix) 40 mg PO DAILY [facility] Last Admin: 08/15/19 06:18 Dose: 40 mg Documented by: Prednisone () 40 mg PO DAILY@0800 [facility] Last Admin: 08/15/19 06:18 Dose: 40 mg Documented by: Sodium Chloride () 10 - 40 ml IV UD PRN PRN Reason: SALINE FLUSH Sotalol HCl (Betapace (G)) 120 mg PO BID [facility] Last Admin: 08/15/19 06:19 Dose: 120 mg Documented by: Discharge Diet: Low fat/ Low Cholesterol, 2000 mg Sodium Diet Discharge Activity: Return to Normal Activity Home Medications: Medications to take at Discharge Aspirin E.C. [Ecotrin] 81 mg PO DAILY@0800 07/11/13 Pantoprazole Sodium [Protonix] 40 mg PO DAILY 10/29/16 Clopidogrel Bisulfate [Plavix] 75 mg PO DAILY 04/20/18 nitroglycerin 0.4 mg sublingual tablet 0.4 mg SUBLINGUAL Q5-15M PRN #25 tab 09/19/18 folic acid 400 mcg tablet 0.4 mg PO DAILY 10/23/18 sotalol 120 mg tablet 120 mg PO BID #180 tab 07/01/19 furosemide 40 mg tablet 20 mg PO DAILY #90 tab 07/29/19 losartan 50 mg tablet 25 mg PO DAILY tab 07/29/19 predniSONE tablet 40 mg PO DAILY@0800 #8 tab 08/14/19 Amlodipine [Norvasc] 2.5 mg PO DAILY #30 tab 08/15/19 Amox/Clavulanate Tablet [Augmentin Tablet] 875 mg PO BID #6 tab 08/15/19 Losartan Potassium [Cozaar] 50 mg PO DAILY #30 tab 08/15/19 Following Prescrptions Were Given to Patient: Amox/Clavulanate Tablet [Augmentin Tablet] 875 mg PO BID #6 tab Transmission Status: [id number] Losartan Potassium [Cozaar] 50 mg PO DAILY #30 tab Transmission Status: Received by [id number] Amlodipine [Norvasc] 2.5 mg PO DAILY #30 tab Transmission Status: Received by [id number] predniSONE tablet 40 mg PO DAILY@0800 #8 tab Transmission Status: Received by [id number] Primary Care Physician: Jacques Pena Chi, MD [Primary Care Provider] - Please follow up with your Primary Care Physician in: 1-2 weeks Please Follow Up With: Roque Lawrence MD When: as directed Please Follow Up With: Jacques Pena Chi, MD Disposition: Home Minutes spent on discharge:: 40 Patient Condition:: Stable Medical Necessity - Tobacco Use Smoking Status: Never smoker Meaningful Use Info Meaningful Use Diagnoses (Choose all that apply): None applicable <Koby Ibarra E - Last Filed: 08/16/19 11:18> Discharge Date and Diagnosis - Secondary Discharge Diagnosis Chronic Problems (Last Updated 08/15/19 @ 09:57 by Oumou Jose) Elevated troponin I level (Chronic) Atherosclerosis of coronary artery of [place] heart with angina pectoris (Chronic) PCI-DOUGLAS-LAD 2.0 x 30 mm Resolute Victoriano, 2.5 x 38 mm and 3.0 x 23 mm Xience Soledad 04/27/18; WTM-QBS-Lfi-Distal RCA w/ 4.0 x 20 mm Promus Premier and DOUGLAS-Prox RCA w/ 4.0 x 12 mm Promus Premier 11/18/2014 ;Cutting balloon PTCA of posterior ventricular branch of RCA and PCI-Stent Prox Lad w/ 3.0 x 8 mm Penta Stent and Mid LAD w/ 3.0 x 13 mm Penta Stent 03/05/2002; Left carotid artery stenosis (Chronic) Ischemic cardiomyopathy (Chronic) Severe left ventricular systolic dysfunction with an akinetic mid to apical anterior wall and an akinetic mid inferior wall segment, in the past and a viability study has demonstrated no viability to the anterior wall. 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) Essential (primary) hypertension (Chronic) Non-ST elevation (NSTEMI) myocardial infarction (Chronic 08/14/19) 04/2018 History of implantable cardiac defibrillator (ICD) (Chronic 05/17/10) History of coronary artery stent placement (Chronic 04/27/18) PCI-DOUGLAS-LAD 2.0 x 30 mm Resolute Victoriano, 2.5 x 38 mm and 3.0 x 23 mm Xience Soledad 04/27/18; NFX-YQC-Fer-Distal RCA w/ 4.0 x 20 mm Promus Premier and DOUGLAS-Prox RCA w/ 4.0 x 12 mm Promus Premier 11/18/2014 ;Cutting balloon PTCA of posterior ventricular branch of RCA and PCI-Stent Prox LAD w/ 3.0 x 8 mm Penta Stent and Mid LAD w/ 3.0 x 13 mm Penta Stent 03/05/2002; Chronic systolic (congestive) heart failure (Chronic) Nonsustained ventricular tachycardia (Chronic) HLD (hyperlipidemia) (Chronic) Hospital Course and Treatment Summary of Care Provided: Hospitalist note: Discharge summary above reviewed and I concur with the above discharge and treatment plan. Patient was recent diagnosed with acute bronchitis as outpatient and he has been receiving IV antibiotics and steroids by his PCP. On the day of admission, he was seen by his PCP, received IV Rocephin as well as IV Phenergan and he became very weak, drowsy and lethargic. He was sent to the emergency department for evaluation. He was found to have abnormal cardiac enzymes and he was admitted. He was diagnosed with viral bronchitis. Chest x-ray showed no obvious infiltrate. During this hospital stay, patient remained afebrile and his white blood cell count returned back to normal. His other routine blood work was unremarkable. He was started on Augmentin p.o. for acute bronchitis. His troponin kept going up for which cardiology consulted. Patient had a history of extensive cardiac disease and he had 8 stents placed in the past. His EKG revealed no acute hemic changes. Later, cardiology decided to take patient for cardiac catheterization. Cardiac catheterization revealed severe CAD with mid to distal left main coronary stenosis, totally occluded mid to distal LAD, moderate severe disease in the proximal left circumflex with severe LV systolic dysfunction. Patient was treated medically with aspirin, Plavix, losartan and sotalol. Cardiology recommended that patient can be discharged or for medical management for now and patient may need further evaluation by cardiology in the near future at a tertiary care center. Patient discharged home in a stable medical condition, discharged on Augmentin twice daily for acute bronchitis, discharged on aspirin, Plavix, losartan and sotalol, continued on his other previous home medications, discharged on prednisone taper, plan to follow-up with PCP in 1 to 2 weeks, from with cardiology according to Dr. Lawrence. - Physical Exam General: Alert, Oriented x3, Cooperative, No apparent distress. HEENT: Atraumatic, PERRLA, EOMI. Neck: Supple, No JVD, Negative Carotid Bruits, Trachea Midline, Thyroid Normal. Lungs: Diminished breath sounds at the bases, crackles on the right base, no rhonchi or wheezes. Cardiovascular: Regular rate, Regular Rhythm, Normal S1, Normal S2, PMI Normal. Abdomen: Bowel Sounds Present, Soft, Non Tender, Non-Distended, No Hepato-splenomegaly. Extremities: No clubbing, No cyanosis, No edema Skin: No rashes, No breakdown Neurological: Cranial nerves are intact, neuro grossly intact Vital Signs are stable. This note was generated with [employer] dictation software. It may contain incorrect words, spelling, and punctuation that were not noted in checking the note before signing. - Physical Exam Vitals/I&O's: Vital Signs Temp Pulse Resp BP Pulse Ox 98.2 F 63 18 106/53 L 94 08/15/19 14:00 08/15/19 15:10 08/15/19 14:00 08/15/19 14:00 08/15/19 14:00 Oxygen Delivery Method Room Air Weight: 179 lb 10.828 oz Body Mass Index (BMI) 25.7 Orthostatic Vital Signs Start: 08/13/19 21:26 Freq: q24h Status: Active Protocol: Activity Type Activity Date Activity User E-Sign Co-Sign Detail Recorded Client Recorded Date Recorded By Document 08/13/19 21:26 CM [id number] 08/13/19 21:29 CM 08/13/19 21:26 Orthostatic Vitals Standing -Blood Pressure (90/60-120/80) 134/72 H -Extremity Use Right Arm -Pulse Rate (60-100) 73 Sitting -Blood Pressure (90/60-120/80) 128/72 H -Extremity Use Right Arm -Pulse Rate (60-100) 73 Lying -Blood Pressure (90/60-120/80) 133/62 H -Extremity Use Right Arm -Pulse Rate (60-100) 67 Intake and Output for Last 24 Hours 08/13/19 08/14/19 08/15/19 23:59 23:59 23:59 Intake Total 857.5 / 857.5 1190 / 1190 691.25 / 691.25 Output Total 850 / 850 Balance 857.5 / 857.5 1190 / 1190 -158.75 / -158.75 Laboratory Results 08/15/19 05:10: WBC 11.0, RBC 3.73 L, Hgb 11.2 L, Hct 33.7 L, MCV 90.3, MCH 30.0, MCHC 33.2, RDW Std Deviation 44.3 H, RDW Coeff of Dane 13.5, Plt Count 161, MPV 13.0 H 08/15/19 05:10: Sodium 138, Potassium 4.0, Chloride 105, Carbon Dioxide 29.0, Anion Gap 4 L, BUN 28 H, Creatinine 0.99, Estim Creat Clear Calc 58.38, Est GFR (MDRD) Af Amer 93, Est GFR (MDRD) Non-Af 77, BUN/Creatinine Ratio 28.2 H, Glucose 135 H, Calcium 8.5 Current Medications Acetaminophen (Tylenol) 650 mg PO Q6H PRN PRN PRN Reason: Pain Score 1-3/Temp > 100.7 F Albuterol Sulfate (Ventolin Aerosols) 2.5 mg INHALATION Q2H PRN PRN PRN Reason: SOB/Wheezing Albuterol/Ipratropium (Duoneb) 3 ml INHALATION Q4HWA.RT [facility] Last Admin: 08/15/19 15:00 Dose: Not Given Documented by: Amlodipine Besylate (Norvasc) 2.5 mg PO DAILY [facility] Last Admin: 08/15/19 10:38 Dose: 2.5 mg Documented by: Amoxicillin/Clavulanate Potassium (Augmentin Tablet) 875 mg PO BID [facility] Last Admin: 08/15/19 10:38 Dose: 875 mg Documented by: Aspirin (Ecotrin) 81 mg PO DAILY@0800 [facility] Last Admin: 08/15/19 06:18 Dose: 81 mg Documented by: Clopidogrel Bisulfate (Plavix) 75 mg PO DAILY [facility] Last Admin: 08/15/19 06:18 Dose: 75 mg Documented by: Folic Acid (Folic Acid) 0.5 mg PO DAILY@0800 [facility] Last Admin: 08/15/19 10:38 Dose: 0.5 mg Documented by: Furosemide (Lasix) 20 mg PO DAILY [facility] Last Admin: 08/15/19 10:38 Dose: 20 mg Documented by: Glucagon () 1 mg IM .X1 PRN PRN Reason: Hypoglycemia Heparin Sodium (Beef Lung) (Heparin 500 Unit/5 Ml (100/Ml)) 500 unit IV UD PRN PRN Reason: HEPARIN FLUSH Dextrose (Dextrose 10%-Water) 250 mls @ 999 mls/hr IV .Q16M PRN; Protocol PRN Reason: HYPOGLYCEMIA Sodium Chloride () 1,000 mls @ 0 mls/hr IV .Q0M [facility] Last Infusion: 08/15/19 14:08 Dose: Infused Documented by: Labetalol HCl (Trandate) 5 mg IV X1 PRN PRN Reason: SBP > 160 prior to sheath pull Stop: 08/17/19 09:10 Losartan Potassium (Cozaar) 50 mg PO DAILY [facility] Last Admin: 08/15/19 10:38 Dose: 50 mg Documented by: Nitroglycerin (Nitrostat) 0.4 mg SUBLINGUAL Q5M PRN PRN Reason: chest pain Ondansetron HCl (Zofran) 4 mg IV Q8H PRN PRN PRN Reason: NAUSEA/VOMITING Pantoprazole Sodium (Protonix) 40 mg PO DAILY [facility] Last Admin: 08/15/19 06:18 Dose: 40 mg Documented by: Prednisone () 40 mg PO DAILY@0800 [facility] Last Admin: 08/15/19 06:18 Dose: 40 mg Documented by: Sodium Chloride () 10 - 40 ml IV UD PRN PRN Reason: SALINE FLUSH Sotalol HCl (Betapace (G)) 120 mg PO BID [facility] Last Admin: 08/15/19 06:19 Dose: 120 mg Documented by: Disposition: Home Minutes spent on discharge:: 29 Patient Condition:: Stable Meaningful Use Info Meaningful Use Diagnoses (Choose all that apply): None applicable Code Visit OBSV E&M: 07453 Observation care discharge
--- NOTE | 2019-08-16 14:43 | CASEMGMT ---
Case Management Progress Note: DC Date: 08/16/2019 DC Diagnosis: Acute bronchitis, Recent human metapneumovirus URI, NSTEMI, Chronic systolic CHF, Ischemic CM, Hx AICD placement, HTN, HLD, Carotid artery dz, GERD, hiatal hernia, anxiety DC Disposition: Home Lace/Strata: 05/09 Called patient listed cell phone on demographics, patient answered, introduced self and role. Patient States still feeling tired and weak. Confirmed filled his medication and taking. Denies any issues, concerns or questions with [facility], medications or f/u. Has a f/u appointment with PCP Dr Pena for 08/22/2019 at 1440, states was told that creping machine operator Dr Lawrence will contact him with schedule a f/u. This investment underwriter advised if he has not heard from them by Monday to call the office-confirmed he has Dr Lawrence's contact information. Patient states that [facility] is #1 for hospitals that he has received care from. Thanked patient for choosing [facility] for his care and ended the conversation. Micah Beyer RNCM
== END 2019-08-15 17:33 | disposition home or self-care (01) | DRG 281 ==
LOC: ED 16:08 → PCU 17:08
PROVIDERS: Nurse Practitioner Family; Emergency Provider Emergency Medicine; Family Provider Family Medicine Geriatric Medicine; PCP Family Medicine Geriatric Medicine; Visit Provider Hospitalist
DX: I21.4 Non-ST elevation (NSTEMI) myocardial infarction (principal); I50.22 Chronic systolic (congestive) heart failure; J20.5 Acute bronchitis due to respiratory syncytial virus; I11.0 Hypertensive heart disease with heart failure; I25.119 Atherosclerotic heart disease of native coronary artery with unspecified angina pectoris; I25.5 Ischemic cardiomyopathy; E78.5 Hyperlipidemia, unspecified; K21.9 Gastro-esophageal reflux disease without esophagitis; F41.9 Anxiety disorder, unspecified; K44.9 Diaphragmatic hernia without obstruction or gangrene; Z95.810 Presence of automatic (implantable) cardiac defibrillator; Z95.5 Presence of coronary angioplasty implant and graft
CPT/HCPCS: 36415; 71045; 71046; 80048; 80053; 81001; 83605; 84484; 85025; 85027; 85610; 85730; 87633; 93005; 93458; 94640; 97166; 99152; 99153; 99285; J7030; A4216; C1769; Q9967

== ENCOUNTER → 2019-10-18 08:45 | Outpatient (CLI) | payer MEDICARE, OTHER, SELFPAY ==
[2019-08-13 17:44] VITALS: BMI 25.7
[2019-10-18 12:39] LABS: Absolute Lymphocyte Count 1.27 X10^3/uL (0.83-4.51); Absolute Neutrophil Count 4.5 X10^3/uL (2.0-7.7); Basophil# 0.05 X10^3/uL; Basophil% 0.8 % (0-1); Eosinophils% 3.1 % (0-5); Hematocrit 38.4 % (40-54); Hemoglobin 12.3 g/dL (13.0-16.5); Lymphocyte # 1.27 X10^3/ul (4.0); Lymphocyte % 19.4 % (19-41); Mean Corpuscular Hgb 30.5 pg (27.0-32.0); Mean Corpuscular Volume 95.3 fL (80-94); Mean Platelet Vol. 13.4 fl (6.2-12.0); Monocyte# 0.45 X10^3/uL; Monocyte% 6.9 % (0-10); NRBC Flagged by Analyzer 0 % (0-5); Neutrophil # 4.53 X10^3/uL (2.7-7.7); Neutrophil % 69.3 % (47-70); Platelet Count 198 K/mm3 (150-450); RBC Distribution Width CV 14.3 % (11.6-14.6); RBC Distribution Width SD 50.4 fl (35.1-43.9); Red Blood Count 4.03 M/mm3 (4.6-6.2); White Blood Count 6.5 K/mm3 (4.4-11.0)
[2019-10-18 13:20] LABS: AST(SGOT) 22 U/L (15-37); Alanine Aminotransfer ALT/SGPT 17 U/L (16-61); Albumin, Serum 3.6 g/dL (3.2-5.0); Alkaline Phosphatase 84 U/L (45-117); Anion Gap 5 (5-15); BUN 22 mg/dL (7-18); BUN/Creat Ratio 21.2 RATIO (10-20); Calcium,Total 9.4 mg/dL (8.5-10.1); Chloride 106 mmol/L (98-107); Creatinine, Serum 1.04 mg/dL (0.70-1.30); EST Glomerular Filtration Rate 72 mL/min (>60); Est Glom Filt Rate - Afr Amer 88 mL/min (>60); Globulin 3.5 g/dL (2.2-4.2); Glucose 169 mg/dL (74-106); Potassium 3.7 mmol/L (3.5-5.1); Protein, Total 7.1 g/dL (6.4-8.2); Sodium Level 140 mmol/L (136-145); Thyroid Stim Hormone (TSH) 0.76 uIU/mL (0.358-3.74)
[2019-10-21 10:54] LABS: Vitamin D,25 Hydroxy 29.5 ng/mL
== END ==
PROVIDERS: PCP Family Medicine Geriatric Medicine; Referring Provider Family Medicine Geriatric Medicine; Visit Provider Family Medicine Geriatric Medicine
DX: I10 Essential (primary) hypertension (principal); F52.8 Other sexual dysfunction not due to a substance or known physiological condition; E55.9 Vitamin D deficiency, unspecified
CPT/HCPCS: 36415; 80053; 82306; 84403; 84443; 85025

== ENCOUNTER → 2019-12-11 09:22 | Outpatient (CLI) | payer MEDICARE, OTHER, SELFPAY ==
[2019-10-18 11:45] VITALS: BMI 25.9
--- NOTE | 2019-12-11 09:27 | CR.HP_ITS ---
CR - History & Physical - General Arrival date:: 12/11/19 Arrival time:: 09:29 Date of Referral:: 10/18/19 - delayed start due to Covid-19 pandemic Date of CR Evaluation:: 12/11/19 Referring Physician: DR. ROQUE RODRIGUEZ Primary Diagnosis: PCI W/STENTING - History of Present Cardiac Event Onset Date: Enter Onset Date of cardiac illnesses in Comment field below Acute Myocardial Infarction within 12 months:: Yes - SMALL NSTEMI Coronary Artery Bypass Graft:: No PTCA or coronary stenting:: Yes - 10/18/2019; TOTAL OF 10 STENTS NOW WITH RECENT INTERVENTION - Medications Home Medications: Ambulatory Orders Medication Instructions Recorded Aspirin E.C. [Ecotrin] 81 mg PO DAILY@0800 07/11/13 Pantoprazole Sodium [Protonix] 40 mg PO DAILY 10/29/16 Clopidogrel Bisulfate [Plavix] 75 mg PO DAILY 04/20/18 nitroglycerin 0.4 mg sublingual 0.4 mg SUBLINGUAL Q5-15M PRN #25 09/19/18 tablet tab folic acid 400 mcg tablet 0.4 mg PO DAILY 10/23/18 furosemide 40 mg tablet 20 mg PO DAILY #90 tab 07/29/19 Amox/Clavulanate Tablet [Augmentin 875 mg PO BID #6 tab 08/15/19 Tablet] metoprolol succinate 100 mg 100 mg PO DAILY #90 tab 10/21/19 tablet,extended release 24 hr - Allergies Allergies/Adverse Reactions: Allergies hydrochlorothiazide Allergy (Severe, Verified 10/18/19 11:48) Severe itching rash ranolazine [From Ranexa] Adverse Reaction (Severe, Verified 10/18/19 11:48) Rash omeprazole Adverse Reaction (Verified 10/18/19 11:48) Unknown Phenothiazines Adverse Reaction (Verified 10/18/19 11:48) Unknown Higzgvf-Auy-Mlj Reductase Inhibitor Adverse Reaction (Verified 10/18/19 11:48) myalgias PHENEGRANZOLE Adverse Reaction (Uncoded 10/18/19 11:48) Unknown - Sleep Disorder Evaluation Hx of Sleep Apnea: No Do you snore loudly (louder than talking or can be heard through closed doors)?: No Do you often feel tired/ fatigued/ sleepy during daytime?: Yes Has anyone observed you stop breathing during sleep?: No History of Hypertension (for STOP score): Yes STOP Results: Positive Advanced Directives - Advanced Directives Power of Record Searcher: Yes Living Will: Yes Advance Directives Information Provided: No Advance Directives on File: No DNR Order?:: No - MOLST See MOLST form: No Past Medical History - Past Medical Illness Medical History: Past Medical History (Last Reviewed 10/18/19 @ 15:[address] Roque Rodriguez MD) History of non-ST elevation myocardial infarction (NSTEMI) (Chronic) Onset Date: 08/13/19 I25.2 Atherosclerosis of coronary artery of [place] heart with angina pectoris (Chronic) I25.119 PCI-DOUGLAS-LAD 2.0 x 30 mm Resolute [place], 2.5 x 38 mm and 3.0 x 23 mm Xience [place] 04/27/18; GNL-MKD-Pru-Distal RCA w/ 4.0 x 20 mm Promus Premier and DOUGLAS- Prox RCA w/ 4.0 x 12 mm Promus Premier 11/18/2014 ;Cutting balloon PTCA of posterior ventricular branch of RCA and PCI-Stent Prox Lad w/ 3.0 x 8 mm Penta Stent and Mid LAD w/ 3.0 x 13 mm Penta Stent 03/05/2002; Left carotid artery stenosis (Chronic) I65.22 Ischemic cardiomyopathy (Chronic) I25.5 Severe left ventricular systolic dysfunction with an akinetic mid to apical anterior wall and an akinetic mid inferior wall segment, in the past and a viability study has demonstrated no viability to the anterior wall. 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) I25.2 Essential (primary) hypertension (Chronic) I10 Non-ST elevation (NSTEMI) myocardial infarction (Chronic) Onset Date: 08/14/19 I21.4 04/2018 Chronic systolic (congestive) heart failure (Chronic) I50.22 Nonsustained ventricular tachycardia (Chronic) I47.2 HLD (hyperlipidemia) (Chronic) E78.5 DDD (degenerative disc disease) GERD (gastroesophageal reflux disease) K21.9 Hiatal hernia K44.9 Polycythemia D75.1 Segmental and somatic dysfunction of pelvic region M99.05 Segmental and somatic dysfunction of thoracic region M99.02 Carotid artery disease (Inactive) I77.9 - Past Surgical History Surgical History: Past Surgical History (Last Reviewed 10/18/19 @ 15:[address] Roque Rodriguez MD) History of implantable cardiac defibrillator (ICD) (Chronic) Onset Date: 05/17/10 History of coronary artery stent placement (Chronic) Onset Date: 09/16/19 Z95.5 PCI-DOUGLAS-Mid LCx w/ 3.5 x 30 mm Resolute [place] and DOUGLAS- Distal LMT w/ 5.0 x 22 mm Resolute [place] 09/16/2019; PCI-DOUGLAS-LAD 2.0 x 30 mm Resolute [place], 2.5 x 38 mm and 3.0 x 23 mm Xience [place] 04/27/18; RVI-QKR-Ocr-Distal RCA w/ 4.0 x 20 mm Promus Premier and DOUGLAS-Prox RCA w/ 4.0 x 12 mm Promus Premier 11/18/2014 ;Cutting balloon PTCA of posterior ventricular branch of RCA and PCI-Stent Prox LAD w/ 3.0 x 8 mm Penta Stent and Mid LAD w/ 3.0 x 13 mm Penta Stent 03/05/2002; History of electrophysiologic study Onset Date: 2009 Z98.890 09/11/2002 @ [facility] per Dr. Holt; and 05/19/[address] Madrigal [facility] History of intraocular lens implant Z96.1 History of left heart catheterization Onset Date: 08/15/19 Z98.890 03/05/2002;08/20/2002; 04/2004; May 2010; 11/18/2014, 04/23/2018 Surgical History: angioplasty, cataract, herniorrhaphy, TURP, - - AICD placement - Family History Summary Family History: Family History (Last Reviewed 10/18/19 @ 15:[address] Roque Rodriguez MD) Father , Age 37 from [place] CAD (coronary artery disease) Myocardial infarction Sudden cardiac Mother , age 96 Diabetes Social History - Smoking History Smoking Status: Never smoker - Occupation Occupation (List type of work in comments):: Retired - Hobbies, Recreation, Social Activities Hobbies: Other - radio controlled airplanes flyer, pinball machines recondition, tinkering with cars and lawn care. Recreational Activities: I am able to engage in most, but not all activities, I am able to engage in a few activities Social Environment - Status Marital Status: - Current Living Arrangements Living Environment:: Spouse - Children How many children do you have?: 3 Do any of your children live nearby?: Yes - Safety Do you feel safe in your surroundings?: Yes - Assistance Do you need any assistance at home?: NO Review of Systems - Review of Systems Hints: Right click = Denies ([place]). Left click = Reports ([place]) Review of Present Symptoms: Reports: Shortness of Breath at Rest - soemtimes but not routinely., Shortness of Breath with Exertion - very much so., Dizziness/Lightheadedness - on a rare occasion, about 70% of the time is when standing up from sitting position., Fatigue, Heart Arrhythmia/Irregularities - atrial paced rhythm, Appetite - Normal, Sleep - Normal. Denies: Angina, Appetite - Special Diet - Life is to short to follow a diet at my age. - Pain Is Patient Pain Free?: Yes Pain Location: back - H/O degenerative disc disease lower back. Pain Level: 10/14 Risk Factor Assessment - Chief Complaint Chief Complaint: Patient presents to CR today for his intial evaluation and assessemnt following recent NSTEMI and PCI intervention in October of this year. The patient has an extensive cardiac history with a total of 10 stents placed in his coronary arteries with this recent intervention. - Vital Signs Temperature: 98.7 F Respiratory Rate: 16 Pulse Ox: 94 Blood Pressure: 124/74 - Pulse Pulse Rate: 61 Pulse Rhythm: Regular - Stress Stress: Recent - not being able ot do the things I enjoy doing. - Blood Cholesterol/Lipids Total Cholesterol (mg/dL) Goal = less than 200 mg/dL: 170 - 04/21/2018 HDL Cholesterol (mg/dL) Goal = less than 40 mg/dL: 38 LDL Cholesterol (mg/dL) Goal = less than 70 mg/dL: 109 Triglycerides (mg/dL) Goal = less than 150 mg/dL: 113 - Obesity Height: 5 ft 10 in Weight:: 181 lb Weight in Pounds: 181.0 lbs Weight Source: Standing Scale Body Mass Index (BMI): 25.9 Nutritional Referral for Obesity: No - Physical Inactivity Physical Inactivity: None - Risk Stratification Risk Guidelines: Lowest Risk: Risk Factor for Smoking, Risk Factor for Dyslipidemia, Risk Factor for Diabetes, Risk Factor for Obesity, Risk Factor for Hypertension, Risk Factor for Depression, Moderate Risk: Risk Factor for Sedentary Lifestyle - For Smoking Smoking Risk Guidelines: Smoking Low Risk: None or quit greater than 6 months ago. Smoking Moderate Risk: Smoker or quit 6 months or less ago. Sm oking High Risk: Smoker - For Dyslipidemia Dyslipidemia Risk Guidelines: Low Risk: Moderate Risk: High Risk: 15-25% fat 25.1-29% fat >/= 30% fat. <7% sat fat 7-9% sat fat >9% sat fat. <150 mg chol 150-299 mg chol >/= 300 mg chol. LDL <100 LDL 100-129 LDL >/= 130. Chol/HDL ratio <5.0 Chol/HDL ratio 5.0-6.0 Chol/HDL ratio >6.0. Triglycerides <100 Triglycerides 100-149 Triglycerides >/= 150 - For Diabetes Mellitus Diabetes Risk Guidelines: Diabetes Low Risk: HgA1c <6.5% and/or FBG <120. Diabetes Moderate Risk: HgA1c 6.6-7.9% and/or FBG 120-180. Diabetes High Risk: HgA1c >/= 8% and/or FBG >180 - For Obesity/Overweight Obesity/Overweight Risk Guidelines: Obesity Low Risk: BMI <25.0. Obesity Moderate Risk: BMI 25-29.9. Obesity High Risk: BMI >/= 30.0 - For Hypertension Hypertension Risk Guidelines: Hypertension Low Risk: Systolic <120 and Diastolic <80. Hypertension Moderate Risk: Systolic 120-139 and Diastolic 80-89. Hypertension High Risk: Systolic >/= 140 and Diastolic >/= 90 - For Sedentary Lifestyle Sedentary Lifestyle Risk Guidelines: Sedentary Lifestyle Low Risk: >/= 1,500 kcal/week. Sedentary Lifestyle Moderate Risk: 700-1,499 kcal/week. Sedentary Lifestyle High Risk: < 700 kcal/week - For Depression Depression Risk Guidelines: Depression Low Risk: Not clinically depressed. Depression Moderate Risk: Mildly depressed. Depression High Risk: Clinically depressed - Family History Family History: Family History (Last Reviewed 10/18/19 @ 15:[address] Roque Rodriguez MD) Father CAD (coronary artery disease) Myocardial infarction Sudden cardiac Mother Diabetes Motivation - Motivation to Participate On a scale of 1 to 10, how prepared are you to commit to attending program?: 8 - hopefully in the first two three weeks, hope to see some progress or feels just wasting our time as well as his. 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 In other words, what do you hope to get out of participating in the program?: increase in muscle strength and progress Are there issues you are dealing with that will interfere with completing the program?: Degenerative disc disease. Do you have a spouse or signficant other, family or friends who will help support you to complete the program?: yes
--- NOTE | 2019-12-11 09:28 | CR.ITP_ITS ---
Diagnosis - General Information Admitting Diagnosis: PCI W/CORONARY STENTING Personal Learning Style:: Audio/Visual, Written Barriers to Learning: Hearing Impairment, Vision Impairment Gave educational material for:: Treating Heart Disease, Emotions & Heart Disease, Stress Management & Relaxation, Sleep Disorders & Heart Disease, How The Heart Works, What it means to have Heart Disease, How Coronary Artery Disease is Diagnosed, Heart Procedures, What Heart Medications Do, Risk Factors & Modifications, Living an Active Life, Nutrition - Education/Goals Individual Counseling: Initial Assessment: Abnormal Cholesterol Levels, High Blood Pressure Cardiac Rehabilitation Goals: 1. Maintain the individual as the primary focus of care. 2. To improve the patient's quality of life. 3. Identification of cardiac risk factors and provide cardiac risk factor management. 4. Enhance the psychosocial status of the patient. 5. Reconditioning enough to allow the patient to resume customary activities. 6. Control symptoms of cardiac disease Personal Goals: Initial Assessment: Improve energy level, Participate in home exercise program, Improve muscle strength and endurance Scale for measuring improvement of personal goals: Enter appropriate number in Comments. 2 = Unchanged. 3 = Slightly Better. 4 = Moderate Improvement. 5 = Met my Goal - Diagnosis & Disease Process Outcomes/Goals: Pt IDs own risk factors & lifestyle modifications by Session 10, Verbalizes symptoms of angina & response by session 3., Pt independently manages Plan/Interventions: Assist Pt to ID & engage in lifestyle modification to reduce CVD risk, Instruct on individual risk factors, Review symptoms of angina & emergency actions, Review secondary diagnosis & identify educational needs. - Safety Referral to Physical Therapy: No Referral to [facility] Case Management: No Fall Risk Assessed:: Yes Assistive Devices:: None Exercise - Initial Assessment - Visit Date of Eval: 12/11/19 - Scheduled start date for 12/13/2019 Session #:: 0 - INITIAL EVALUATION Mets: Pre-: >5 METS for 30 minutes by discharge - Physician Prescribed Exercise Modalities: Treadmill, Airdyne, NuStep Frequency: 3x/week for 12 weeks [36 sessions] Intensity: 60-80% of age predicted maximum heart rate reserve Current METSs:: 3.5 Target Heart Rate:: 89-116 Resting Blood Pressure: 125/74 EKG Type: ATRIAL PACED RHYTHM (H/O implantable cardiac defibrillator ICD) - Outcomes & Goals Goals:: Verbalizes understanding of THR, RPE & goal METS by session 6, Documents in home exercise log/reports 30 min aerobic 5 day/wk by DC, Demonstrates accurate pulse taking by DC - Intervention & Plan Exercise Program Goals: Instruct on personal THR & RPE, Instruct on MET level & personal MET goal, Show patient to take own pulse /validate performance until accurate, Instruct on home exercise - Physical Activity Home Exercise Physical Activity - Home Exercise: Safe Exercise, Warm-up, Self-monitoring, Cool-Down, Home Exercise > 30 min Daily, Sitting Time <3 hours/daily - Outcomes & Goals Outcomes/Goals: Demonstrates correct Warm-up/exercise Cool-Down (S3) if = 2.5 METs, Verbalizes symptoms of exercise intolerance by Session 3 (S3), Demonstrate safe equipment use (S3) & follows exercise prescrition (6) - Intervention & Plan Plan/Intervention: Instruct warm-up & cool-down if exercising at > 2 METs, Instruct on symptoms of exercise intolerance & actions to take, Instruct & monitor on saf, Assess intial functional capacity & safety risk Nutrition - Initial Assessment - Program Goals Nutrition Program Goals: LDL <100 optimal. 100 - 129 Near optimal. 130 - 159 Borderline High. 160 - 189 High. Total Cholesterol <200 desirable. 200 - 239 Borderline High. >/= 240 High. HDL < 40 Low >/=60 High. Triglycerides <150 desirable. <199 optimal. VlDL 5 - 40. HgbA1C <7%. BMI <25 Patient has diagnosis of Hyperlipidemia (ICD E78)?: Yes - Visit Date of Assessment:: 12/11/19 - Cholesterol/Lipids Triglycerides (mg/dL): 113 - 04/21/2018 Total Cholesterol (mg/dL): 170 LDL Cholesterol (mg/dL): 109 HDL Cholesterol (mg/dL): 38 Determine presence & major risk factors that modify LDL goal: Hypertension or hypertensive medication, Low HDL cholesterol <40 mg/dL*, Age men > 45 years; women >/= 55 years Outcomes/Goals: Pt IDs own risk factors & lifestyle modifications by Session 10, Verbalizes symptoms of angina & response by session 3., Pt independently manages Intervention/Plan: Instruct on personal lipid levels & lipid goals/NCEP guidelines, Instruct on cholesterol Referral to dietitian:: Yes - MEDICAL NUTRITION THERAPY SERVICES (HTN/CHOLESTEROL) - Diabetes (Other Core Measures) Diabetes Type: Not Applicable - Weight Mgt (Other Care) Not Applicable: Yes Height: 5 ft 10 in Weight:: 181 lb BMI: 25.9 Diagnosis Overweight/Obesity BMI> 30% ICD-10 E66: No Diagnosis High BMI/Morbid Obesity BMI> 35% ICD-10 Z68: No Outcomes/Goals: Pt sets, maintains & shows weight loss goal & trend during rehab Intervention/Plan: Instruct on ideal BMI & set weight loss goal w/patient - Healthy Eating Habits Will attend diet classes:: Yes Outcomes/Goals:: Consume diet rich in vegs,fruits,whole grain/high fiber,fish,lean meat, Limit sat/trans fats,cholesterol & added salts & sugars Intervention/Plan:: Assess current eating habits - Education Gave educational materials for:: Healthy eating Medical - Initial Assessment - Visit Date of Eval: 12/11/19 - Medication Compliance Preventative Medication(s):: Aspirin, Clopidogrel/P2Y12 inhibit, Statin/lipid H/O mental health issues: depression, anxiety, or addiction?: No Doesn?t believe in the benefits of treatment?: No Believes medications are unnecessary or harmful?: No Has a concern about medication side effects?: No Expresses concern over the cost of medications?: No Outcomes/Goals: Verbalizes medications,desired effect & common side effects @ DC, Pt self-reports following medication regimen, Keeps card in wallet w/medications listed by DC Interventions/plans: Instruct on medication effects & side effects, Review medication list w/patient every two weeks, Instruct importance of taking meds as ordered & assist problem solving - Tobacco Use Tobacco Use: Non-smoker - Hypertension Hypertension Diagnosis:: Hypertension ICD-10 I10 Resting Blood Pressure:: 125/74 [employer] Hypertension Guidelines: [place] [employer] Hypertension Guidelines. Normal BP Less than 120/80. Elevated BP 120/80. Hypertension Stage 1: BP 130-139/80-89. Hypertesnion Stage 2: BP 140 or higher/90 or higher. Hypertension Crisis: BP higher than 180/120 Outcomes/Goals: Able to verbalize/achieve optimal blood pressure <130/80, Incorporates diet changes & exercise for blood pressure control by DC Interventions/plan: Instruct on optimal blood pressure, hypertension & medications, Instruct on effects of sodium, alcohol, stress, exercise &hypertension - Tobacco Cessation Referral Smoking Cessation Referral:: No Individual Education/Counseling:: No Education Schedule Given:: Yes Psychosocial - Initial Assess - VIsit Date of Eval: 12/11/19 Not Applicable: Yes History of previous Mental disease:: No History of Emotional Disorders: Depression - Mild depression as indicated by the PHQ-9 survey taken today. - Target Goals Target Goals: Assess presence or absence of depression. Using a valid screening tool, maximizes coping skills. Positive support system - Psychosocial Test Tool Used:: Ely Lujan QOL Cardiac, PHQ-9 Questionnaire Self-reported stress:: Self-efficacy score at 2, low self esteem and self confidence. phq-9 Severity: Severity. 1-4 Minimal Depression. 5-9 Mild Depression. 10-14 Moderate Depression. 15-19 Moderately Sever Depression. 20-27 Severe Depression. Rule: See PHQ-9 Score: 9 - Referral to Behavioral Health PS - Interventions: Yes Referral to Physician if PHQ-9 if score is 5-9: - Referral back to his PCP regarding mild level of depression as identified by the PHQ-9 survey., No Referral to Behavioral Health if PHQ-9 score >9:, No Referral to [facility], No Attend Stress Management Classes - Outcomes/Goals: See list Psychosocial Outcomes/Goals:: ID's personal stressors & 2 strategies to manage stress by discharge - Intervention/Plan: See List Interventions/Plan:: Assess stressors,coping strategies & signs of derpression on admission, Instruct/assist pt to develop coping & personal stress Mgt strategies, Refer to Physician if appropriate, Instruct patient to recognize signs & symptoms of depression, Instruct patient to recog Patient Health Questionnaire Initial Assessment 1. Little interest or pleasure in doing things: More than half the days 2. Feeling down, depressed, or hopeless: More than half the days 3. Trouble falling or staying asleep, or sleeping too much: Several days 4. Feeling tired or having little energy: Nearly every day 5. Poor appetite or overeating: Not at all 6. Feeling bad about yourself -- or that you are a failure or have let yourself or your family down: Not at all 7. Trouble concentrating on things, such as reading the newspaper or watching television: Several days 8. Moving or speaking so slowly that other people could have noticed. Or the opposite - being so fidgety or restless that you have been moving around a lot more than usual: Not at all 9. Thoughts that you would be better off , or of hurting yourself in some way: Not at all How difficult have these problems made it for you to do your work, take care of things at home, or get along with other people?: Somewhat difficult Total Score: 9 JOCELYN-Q SV Test - Statements CAD is a disease of the arteries in the heart: False Examples of risk factors for heart disease: True Angina is chest pain or discomfort: True The benefits of resistance training include: True Eating more meat and dairy products: False Anti-platelet medications such as aspirin are important: True The only effective way to manage stress: False An exercise warm-up slowly increases heart rate: True Prepared, processed foods usually have high sodium: True Depression is common after a heart attack: True The statin medications lower cholesterol: True To control blood pressure, lower the amount of sodium: True If someone gets chest discomfort during walking: False Transfats are partially hydrogenated vegetable oils: True Sleep apnea that is not treated increases the risk: True To control cholesterol, one should become a vegetarian: False Someone knows if he/she is exercising at the right level: True Diabetes cannot be prevented with exercise & health eating: True Stress is a large risk for heart attack: True A diet that can help lower blood pressure is rich in: False - Total Score Total Correct Responses: 17 Self-Efficacy Initial Assessment We would like to know how confident you are in doing certain activities. Please select your confidence level for:: Select your confidence level for the following using the scale 1-10 where 1 is not at all confident and 10 is totally confident. Your score is the average of all 6 responses. Fatigue: How confident are you that you can keep the fatigue caused by your disease from interfering with the things you want to do? Select Number: 2 Physical Discomfort or Pain: How confident are you that you can keep the physical discomfort or pain of your disease from interfering with the things you want to do? Select Number: 2 Emotional Distress: How confident are you that you can keep the emotional distress caused by your disease from interfering with the things you want to do? Select Number: 2 Other Symptoms or Health Problems: How confident are you that you can keep other symptoms or health problems from interfering with the things you want to do? Select Number: 2 Different Tasks and Activities: How confident are you that you can do the different tasks and activities needed to manage your health condition so as to reduce your need to see a doctor? Select Number: 2 Medication: How confident are you that you can do things other than just taking medication to reduce how much your illness affects your everyday life? Select Number: 3 Total Score:: 2 Nutrition Survey - Nutrition Survey Instructions Scoring Instructions: Scoring is as follows: Yes = 1 points. No = 0 point. Patient score that is >/=12 is considered to be at potential nutritional risk and could benefit from a referral to a registered dietitian. - Nutrition Survey Initial Have you lost >10 lbs over the past 2 months without trying?: No Are you following a special diet at home for diabetes, low fat, or low salt?: No Are you interested in meeting with a dietitian for help understanding your diet?: No Do you eat less than 3 meals a day?: No Do you eat fatty meats (gregg, sausage, ribs, etc), fried foods, desserts, large amounts of salad dressings, margarine, butter, or cheese most days?: No Do you have food allergies? [Enter types in comment field]: No Do you eat in restaurants more than 3 times a week?: No Do you season food with salt, seasoning salt, or garlic salt?: Yes Do you used canned, boxed, frozen meals, or soups, seasoning packets?: Yes - Patient encouraged to reduce sodium intake and limit processed foods due to hidden sodium content. Total Score:: 2
[2019-12-11 10:08] VITALS: BP 124/74; PULSE 61; RESP 16; TEMP 37.1; O2SAT 94; BMI 25.9
[2019-12-11 10:23] VITALS: BP 125/74; BMI 25.9
== END ==
PROVIDERS: PCP Family Medicine Geriatric Medicine; Referring Provider Internal Medicine Cardiovascular Disease; Visit Provider Internal Medicine Cardiovascular Disease
DX: Z95.5 Presence of coronary angioplasty implant and graft (principal)

== ENCOUNTER → 2019-12-23 09:00 | Outpatient (CLI) | payer MEDICARE, OTHER, SELFPAY ==
[2019-12-11 10:23] VITALS: BMI 25.9
[2019-12-18 12:11] VITALS: BMI 26.1
[2019-12-23 10:36] LABS: Anion Gap 3 (5-15); BUN 23 mg/dL (7-18); BUN/Creat Ratio 19.8 RATIO (10-20); Calcium,Total 9.4 mg/dL (8.5-10.1); Chloride 106 mmol/L (98-107); Creatinine, Serum 1.16 mg/dL (0.70-1.30); EST Glomerular Filtration Rate 64 mL/min (>60); Est Glom Filt Rate - Afr Amer 77 mL/min (>60); Glucose 172 mg/dL (74-106); Potassium 3.2 mmol/L (3.5-5.1); Sodium Level 140 mmol/L (136-145)
== END ==
PROVIDERS: PCP Family Medicine Geriatric Medicine; Referring Provider Internal Medicine Cardiovascular Disease; Visit Provider Internal Medicine Cardiovascular Disease
DX: I25.119 Atherosclerotic heart disease of native coronary artery with unspecified angina pectoris (principal); I25.2 Old myocardial infarction; I25.5 Ischemic cardiomyopathy; I11.0 Hypertensive heart disease with heart failure; I50.22 Chronic systolic (congestive) heart failure; I47.2 Ventricular tachycardia; E78.5 Hyperlipidemia, unspecified; I65.22 Occlusion and stenosis of left carotid artery; Z95.5 Presence of coronary angioplasty implant and graft
CPT/HCPCS: 36415; 80048; 84484

== ENCOUNTER 2020-01-03 09:15 | Outpatient (RCR) | payer MEDICARE, OTHER, SELFPAY ==
[2019-12-11 10:08] VITALS: BMI 25.9
[2019-12-11 10:23] VITALS: BMI 25.9
== END 2020-01-05 23:59 ==
LOC: CR 09:15
PROVIDERS: PCP Family Medicine Geriatric Medicine; Referring Provider Internal Medicine Cardiovascular Disease; Visit Provider Internal Medicine Cardiovascular Disease
DX: Z95.5 Presence of coronary angioplasty implant and graft (principal)
CPT/HCPCS: 93798

== ENCOUNTER 2020-01-08 09:15 | Outpatient (RCR) | payer MEDICARE, OTHER, SELFPAY ==
[2019-12-11 10:23] VITALS: BMI 25.9
[2019-12-18 12:11] VITALS: BMI 26.1
--- NOTE | 2020-01-10 08:25 | PCM.CR.ITP ---
Diagnosis - General Information Admitting Diagnosis: NSTEMI, S/P PCI W/CORONARY STENTING Personal Learning Style:: Audio/Visual, Written Barriers to Learning: Hearing Impairment, Vision Impairment Stage of change r/t lifestyle modifications:: Action Gave educational material for:: Treating Heart Disease, Emotions & Heart Disease, Stress Management & Relaxation, Sleep Disorders & Heart Disease, How The Heart Works, What it means to have Heart Disease, How Coronary Artery Disease is Diagnosed, Heart Procedures, What Heart Medications Do, Risk Factors & Modifications, Living an Active Life, Nutrition - Education/Goals Individual Counseling: Initial Assessment: Abnormal Cholesterol Levels, High Blood Pressure Cardiac Rehabilitation Goals: 1. Maintain the individual as the primary focus of care. 2. To improve the patient's quality of life. 3. Identification of cardiac risk factors and provide cardiac risk factor management. 4. Enhance the psychosocial status of the patient. 5. Reconditioning enough to allow the patient to resume customary activities. 6. Control symptoms of cardiac disease Personal Goals: Initial Assessment: Improve energy level, Participate in home exercise program, Improve muscle strength and endurance, Improve diet and eating habits (eat healthier) Scale for measuring improvement of personal goals: Enter appropriate number in Comments. 2 = Unchanged. 3 = Slightly Better. 4 = Moderate Improvement. 5 = Met my Goal - Diagnosis & Disease Process Outcomes/Goals: Pt IDs own risk factors & lifestyle modifications by Session 10, Verbalizes symptoms of angina & response by session 3., Pt independently manages Plan/Interventions: Assist Pt to ID & engage in lifestyle modification to reduce CVD risk, Instruct on individual risk factors, Review symptoms of angina & emergency actions, Review secondary diagnosis & identify educational needs. 30 day Reassessments:: Not Met Exercise - 30-day Assessment - Visit Date of Eval: 01/10/20 Session #:: 9 Comments:: PATIENT COMPLAINS OF LIGHTHEADEDNESS/DIZZINESS STATES SHE FREQUENTLY FINDS HIM OUTSIDE LAYING DOWN IN THE YARD FROM FATIGUE AND DIZZINESS DUE TO POSSIBLE DEHYDRATION. HOWEVER, PATIENT FREQUENTLY REFUSED TO DRINK WATER FOR HER. BPs HAVE BEEN LOW AND DR. RODRIGUEZ NOTIFIED. PATIENT ALSO STOPPED AMIODARON AND STATES HE DID FEEL SOMEWHAT BETTER. - Physician Prescribed Exercise Modalities: Treadmill, Rower, Airdyne, NuStep Frequency: 3x/week for 12 weeks [36 sessions] Intensity: 60-80% of age predicted maximum heart rate reserve Current METSs:: 3.0 UNCHANGED Target Heart Rate:: 89-116 Current RPE:: 11-13 Maximum Excercise HR:: 85 Resting Blood Pressure: 128/54 Maximum Exercise Blood Pressure: 140/52 EKG Type: PACED ATRIAL RHYTHM WITH RARE PACs. - Outcomes & Goals Goals:: Verbalizes understanding of THR, RPE & goal METS by session 6, Documents in home exercise log/reports 30 min aerobic 5 day/wk by DC, Demonstrates accurate pulse taking by DC - Intervention & Plan Exercise Program Goals: Instruct on personal THR & RPE, Instruct on MET level & personal MET goal, Show patient to take own pulse /validate performance until accurate, Instruct on home exercise - 30-day Reassessments 30 day Reassessments:: Progressing - Physical Activity Home Exercise Physical Activity - Home Exercise: Safe Exercise, Warm-up, Self-monitoring, Cool-Down, Home Exercise > 30 min Daily, Sitting Time <3 hours/daily - Outcomes & Goals Outcomes/Goals: Demonstrates correct Warm-up/exercise Cool-Down (S3) if = 2.5 METs, Verbalizes symptoms of exercise intolerance by Session 3 (S3), Demonstrate safe equipment use (S3) & follows exercise prescrition (6) - Intervention & Plan Plan/Intervention: Instruct warm-up & cool-down if exercising at > 2 METs, Instruct on symptoms of exercise intolerance & actions to take, Instruct & monitor on saf, Assess intial functional capacity & safety risk - 30-day Reassessments 30 day Reassessments:: Progressing Nutrition - 30-Day Assessment - Program Goals Nutrition Program Goals: LDL <100 optimal. 100 - 129 Near optimal. 130 - 159 Borderline High. 160 - 189 High. Total Cholesterol <200 desirable. 200 - 239 Borderline High. >/= 240 High. HDL < 40 Low >/=60 High. Triglycerides <150 desirable. <199 optimal. VlDL 5 - 40. HgbA1C <7%. BMI <25 Patient has diagnosis of Hyperlipidemia (ICD E78)?: Yes - Visit Date of Assessment:: 01/10/20 Session #:: 10 - Cholesterol/Lipids Determine presence & major risk factors that modify LDL goal: Hypertension or hypertensive medication, Family history of premature CHD in Male < 55 years: female <65 yearsFa, Age men > 45 years; women >/= 55 years Outcomes/Goals: Pt IDs own risk factors & lifestyle modifications by Session 10, Verbalizes symptoms of angina & response by session 3., Pt independently manages Intervention/Plan: Instruct on personal lipid levels & lipid goals/NCEP guidelines, Instruct on cholesterol Referral to dietitian:: No - Diabetes (Other Core Measures) Diabetes Type: Not Applicable - Weight Mgt (Other Care) Not Applicable: Yes Height: 5 ft 10 in Weight:: 182 lb BMI: 26.1 Diagnosis Overweight/Obesity BMI> 30% ICD-10 E66: No Diagnosis High BMI/Morbid Obesity BMI> 35% ICD-10 Z68: No Outcomes/Goals: Pt sets, maintains & shows weight loss goal & trend during rehab Intervention/Plan: Instruct on ideal BMI & set weight loss goal w/patient, Assist pt to ID & incorporate diet changes for weight loss by S9, Encourage goal of using 250-300dcal per session for weight loss 30 day Reassessments:: Progressing - Healthy Eating Habits Will attend diet classes:: Yes Outcomes/Goals:: Consume diet rich in vegs,fruits,whole grain/high fiber,fish,lean meat, Limit sat/trans fats,cholesterol & added salts & sugars Intervention/Plan:: Assess current eating habits 30-day Reassessments:: Progressing - Education Gave educational materials for:: Healthy eating - REINFORCED IMPORTANCE OF HYDRATION Medical- 30-Day Assessment - Visit Date of Eval: 01/10/20 Session #:: 10 - Medication Compliance Preventative Medication(s):: Aspirin, Clopidogrel/P2Y12 inhibit, Statin/lipid, Beta suha H/O mental health issues: depression, anxiety, or addiction?: No Doesn?t believe in the benefits of treatment?: No Believes medications are unnecessary or harmful?: No Has a concern about medication side effects?: No Expresses concern over the cost of medications?: No Outcomes/Goals: Verbalizes medications,desired effect & common side effects @ DC, Pt self-reports following medication regimen, Keeps card in wallet w/medications listed by DC Interventions/plans: Instruct on medication effects & side effects, Review medication list w/patient every two weeks, Instruct importance of taking meds as ordered & assist problem solving 30-day Reassessments:: Progressing - Tobacco Use Tobacco Use: Non-smoker - Hypertension Hypertension Diagnosis:: Hypertension ICD-10 I10 Resting Blood Pressure:: 128/54 [place] [employer] Hypertension Guidelines: [place] [employer] Hypertension Guidelines. Normal BP Less than 120/80. Elevated BP 120/80. Hypertension Stage 1: BP 130-139/80-89. Hypertesnion Stage 2: BP 140 or higher/90 or higher. Hypertension Crisis: BP higher than 180/120 Peak Exercise Blood Pressure:: 140/52 Outcomes/Goals: Able to verbalize/achieve optimal blood pressure <130/80, Incorporates diet changes & exercise for blood pressure control by DC Interventions/plan: Instruct on optimal blood pressure, hypertension & medications, Instruct on effects of sodium, alcohol, stress, exercise &hypertension 30 day Reassessments:: Progressing - Tobacco Cessation Referral Smoking Cessation Referral:: No Individual Education/Counseling:: No Education Schedule Given:: Yes Psychosocial - 30-Day Assess - VIsit Date of Eval: 01/10/20 Session #:: 10 Not Applicable: Yes History of previous Mental disease:: No - Target Goals Target Goals: Assess presence or absence of depression. Using a valid screening tool, maximizes coping skills. Positive support system - Psychosocial Test Tool Used:: Elpas QOL Cardiac, PHQ-9 Questionnaire phq-9 Severity: Severity. 1-4 Minimal Depression. 5-9 Mild Depression. 10-14 Moderate Depression. 15-19 Moderately Sever Depression. 20-27 Severe Depression. Rule: - Referral to Behavioral Health PS - Interventions: Yes Referral to Physician if PHQ-9 if score is 5-9: - MILD DEPRESSION PER PHQ-9, Yes Attend Stress Management Classes, No Referral to Behavioral Health if PHQ-9 score >9:, No Referral to [facility] - Outcomes/Goals: See list Psychosocial Outcomes/Goals:: ID's personal stressors & 2 strategies to manage stress by discharge - Intervention/Plan: See List Interventions/Plan:: Assess stressors,coping strategies & signs of derpression on admission, Instruct/assist pt to develop coping & personal stress Mgt strategies, Instruct patient to recognize signs & symptoms of depression, Instruct patient to recog - 30-day Reassessments: 30 day Reassessments:: Progressing Patient Health Questionnaire 30-Day Re-eval Assessment 1. Little interest or pleasure in doing things: More than half the days 2. Feeling down, depressed, or hopeless: More than half the days 3. Trouble falling or staying asleep, or sleeping too much: Several days 4. Feeling tired or having little energy: Nearly every day 5. Poor appetite or overeating: Not at all 6. Feeling bad about yourself -- or that you are a failure or have let yourself or your family down: Not at all 7. Trouble concentrating on things, such as reading the newspaper or watching television: Several days 8. Moving or speaking so slowly that other people could have noticed. Or the opposite - being so fidgety or restless that you have been moving around a lot more than usual: Not at all 9. Thoughts that you would be better off , or of hurting yourself in some way: Not at all How difficult have these problems made it for you to do your work, take care of things at home, or get along with other people?: Somewhat difficult Total Score: 9 Self-Efficacy 30-Day Re-eval Assessment We would like to know how confident you are in doing certain activities. Please select your confidence level for:: Select your confidence level for the following using the scale 1-10 where 1 is not at all confident and 10 is totally confident. Your score is the average of all 6 responses. Fatigue: How confident are you that you can keep the fatigue caused by your disease from interfering with the things you want to do? Select Number: 3 Physical Discomfort or Pain: How confident are you that you can keep the physical discomfort or pain of your disease from interfering with the things you want to do? Select Number: 3 Emotional Distress: How confident are you that you can keep the emotional distress caused by your disease from interfering with the things you want to do? Select Number: 4 Other Symptoms or Health Problems: How confident are you that you can keep other symptoms or health problems from interfering with the things you want to do? Select Number: 4 Different Tasks and Activities: How confident are you that you can do the different tasks and activities needed to manage your health condition so as to reduce your need to see a doctor? Select Number: 4 Medication: How confident are you that you can do things other than just taking medication to reduce how much your illness affects your everyday life? Select Number: 4 Total Score:: 3
[2020-01-10 08:46] VITALS: BP 128/54; BP 140/52; BMI 26.1
== END 2020-02-04 23:59 ==
LOC: CR 09:15
PROVIDERS: PCP Family Medicine Geriatric Medicine; Referring Provider Internal Medicine Cardiovascular Disease; Visit Provider Internal Medicine Cardiovascular Disease
DX: Z95.5 Presence of coronary angioplasty implant and graft (principal)
CPT/HCPCS: 93798

== ENCOUNTER 2020-01-10 00:36 | Observation (INO) | payer MEDICARE, OTHER, SELFPAY ==
[2019-12-11 10:23] VITALS: BMI 25.9
[2019-12-18 12:11] VITALS: BMI 26.1
[2020-01-10] VITALS (23 sets, daily range): BP systolic 101–167; BP diastolic 55–84; PULSE 60–92; RESP 16–18; TEMP 36.5–36.9; O2SAT 93–100; BMI 26.1; BMI 25.5; BMI 26.0
--- NOTE | 2020-01-10 01:03 | EKG12_ITS ---
Test Reason : CP Blood Pressure : / mmHG Vent. Rate : 071 BPM Atrial Rate : 071 BPM P-R Int : 164 ms QRS Dur : 130 ms QT Int : 440 ms P-R-T Axes : 011 -41 066 degrees QTc Int : 478 ms Normal sinus rhythm Left axis deviation Left ventricular hypertrophy with QRS widening T wave abnormality, consider lateral ischemia Abnormal ECG Confirmed by JENNIFER ROCHA, JESSE ([id number]), editorial manager BITA ROBB ([id number]) on 01/13/2020 1:34:47 PM Referred By: FREDDY Confirmed By:JESSE RODRIGUEZ MD
--- NOTE | 2020-01-10 01:05 | RAD_ITS ---
STUDY: X-RAY CHEST REASON FOR EXAM: Male, 84 years old patient with chest pain for a couple of days. Days prior chest pain went away on its own. Tonight''s chest pain was not going away but has since resolved since taking nitroglycerine. Past medical history of previous myocardial infarction and coronary endovascular stent placement. TECHNIQUE: Single AP portable view of the chest. COMPARISON: August 13, 2019. FINDINGS: Cardiac monitoring leads are present. Patient has a right-sided intracardiac pacemaker. The lungs are expanded. There is mild elevation of right hemidiaphragm. There is no demonstrated pleural abnormality. There is mild cardiac enlargement. Normal mediastinum and agapito. Normal visualized pulmonary arteries. There is atherosclerotic calcification of the aortic arch with tortuosity. There is demineralization of the osseous structures. Normal visualized ribs, clavicles, and shoulders. There is no demonstrated abnormality of the visualized soft tissue structures of the upper abdomen. RAD/Chest 1 View (Portable) IMPRESSION: Cardiomegaly without evidence of acute cardiopulmonary disease. Electronically Signed: Lisa Durbin MD at 1:27 EDT , Service support ,
[2020-01-10] MEDS: Nitroglycerin Oint 1 INCH PACKET 0.5 INCH TRANSDERM. ×2 (01:08→05:53)
[2020-01-10] MEDS: Aspirin 81 MG TAB.CHEW 162 MG PO (01:08)
[2020-01-10 01:10] LABS: Absolute Lymphocyte Count 1.92 X10^3/uL (0.83-4.51); Absolute Neutrophil Count 5.2 X10^3/uL (2.0-7.7); Basophil# 0.06 X10^3/uL; Basophil% 0.7 % (0-1); Eosinophils% 2.5 % (0-5); Hematocrit 37.4 % (40-54); Hemoglobin 12.6 g/dL (13.0-16.5); Lymphocyte # 1.92 X10^3/ul (4.0); Lymphocyte % 23.7 % (19-41); Mean Corp Hgb Conc 33.7 g/dL (32-36); Mean Corpuscular Hgb 30.5 pg (27.0-32.0); Mean Corpuscular Volume 90.6 fL (80-94); Mean Platelet Vol. 12.8 fl (6.2-12.0); Monocyte# 0.72 X10^3/uL; Monocyte% 8.9 % (0-10); NRBC Flagged by Analyzer 0 % (0-5); Neutrophil # 5.17 X10^3/uL (2.7-7.7); Neutrophil % 63.8 % (47-70); Platelet Count 203 K/mm3 (150-450); RBC Distribution Width CV 13.8 % (11.6-14.6); RBC Distribution Width SD 45.6 fl (35.1-43.9); Red Blood Count 4.13 M/mm3 (4.6-6.2); White Blood Count 8.1 K/mm3 (4.4-11.0)
[2020-01-10 01:25] LABS: Anion Gap 5 (5-15); BUN 24 mg/dL (7-18); BUN/Creat Ratio 16.1 RATIO (10-20); Calcium,Total 9.7 mg/dL (8.5-10.1); Chloride 103 mmol/L (98-107); Creatinine, Serum 1.49 mg/dL (0.70-1.30); EST Glomerular Filtration Rate 48 mL/min (>60); Est Glom Filt Rate - Afr Amer 58 mL/min (>60); Estimated Creatinine Clearance 38.79 ml/min; Glucose 124 mg/dL (74-106); Potassium 4.1 mmol/L (3.5-5.1); Sodium Level 137 mmol/L (136-145)
--- NOTE | 2020-01-10 01:29 | ED.DCSUM_ITS ---
History of Present Illness Chief Complaint: Chest Pain Informant: Patient, Spouse/S.O. Onset: Today - about 45 min prior to arrival Activity at onset: Rest Timing: Intermittent, Lasts - 15-20 min tonight, until took NTG Quality: Sharp Location: Left Chest - without radiation Current Severity: Gone Maximum Severity: Moderate Worsened By: Nothing. Not Worsened By: Exertion, Movement of Arm, Movement of Torso, Breathing, Coughing Relieved By: NTG - x1. Not Relieved By: Antacids - tried Gas-X, did nothing. Associated Symptoms: Lightheadedness. Negative for: Nausea, Vomiting, Diaphoresis, Dyspnea, Cough, Fever, Palpitations Narrative: Patient states not infrequently, he has very brief sharp pains in his left chest, however tonight at rest he had sharp discomfort that started and was unrelenting. He got up to walk to the kitchen however he felt dizzy and weak. Pain is nonpleuritic, he denies dyspnea or recent illness, no swelling or pain in the legs. He has a significant cardiac history along with ischemic cardiomyopathy as a result of several MIs, he states he has 10 stents in his heart. He states this pain is similar to pain he has experienced with his heart in the past, although the discomfort is somewhat atypical since he describes it as very sharp and localized to the left side. He took a single nitroglycerin tonight after a Gas-X did nothing, and since then his pain was resolved and he has felt better, but this was very unusual that the pain lasted so long and that he was feeling bad otherwise along with it, hence coming to the emergency department. His last stents were placed several months ago. He states he has been having dyspnea with exertion for several weeks. Prior Similar Symptoms: Yes, With Prior OR Recent Illness/Hospitalization: No CVD Risk Factors: Hypertension, Hypercholesterolemia - Past Medical History (1) Atherosclerosis of coronary artery of [place] heart with angina pectoris Status: Chronic (2) Chronic systolic (congestive) heart failure Status: Chronic (3) Essential (primary) hypertension Status: Chronic (4) HLD (hyperlipidemia) Status: Chronic (5) History of coronary artery stent placement Status: Chronic Comment: PCI-DOUGLAS-Mid LCx w/ 3.5 x 30 mm Resolute [place] and DOUGLAS- Distal LMT w/ 5.0 x 22 mm Resolute [place] 09/16/2019; PCI-DOUGLAS-LAD 2.0 x 30 mm Resolute [place], 2.5 x 38 mm and 3.0 x 23 mm Xience [place] 04/27/18; HYH-KIT-Gkz-Distal RCA w/ 4.0 x 20 mm Promus Premier and DOUGLAS-Prox RCA w/ 4.0 x 12 mm Promus Premier 11/18/2014 ;Cutting balloon PTCA of posterior ventricular branch of RCA and PCI-Stent Prox LAD w/ 3.0 x 8 mm Penta Stent and Mid LAD w/ 3.0 x 13 mm Penta Stent 03/05/2002; (6) History of implantable cardiac defibrillator (ICD) Status: Chronic (7) History of non-ST elevation myocardial infarction (NSTEMI) Status: Chronic Comment: 04/2018 (8) Ischemic cardiomyopathy Status: Chronic Comment: Severe left ventricular systolic dysfunction with an akinetic mid to apical anterior wall and an akinetic mid inferior wall segment, in the past and a viability study has demonstrated no viability to the anterior wall. (9) Left carotid artery stenosis Status: Chronic (10) Nonsustained ventricular tachycardia Status: Chronic Past Medical History - Allergies and Home Meds Allergies/Adverse Reactions: Allergies hydrochlorothiazide Allergy (Severe, Verified 01/10/20 00:44) Severe itching rash ranolazine [From Ranexa] Adverse Reaction (Severe, Verified 01/10/20 00:44) Rash omeprazole Adverse Reaction (Verified 01/10/20 00:44) Unknown Phenothiazines Adverse Reaction (Verified 01/10/20 00:44) Unknown Jjutmfe-Tly-Okl Reductase Inhibitor Adverse Reaction (Verified 01/10/20 00:44) myalgias PHENEGRANZOLE Adverse Reaction (Uncoded 12/18/19 12:12) Unknown Primary Care Physician: Jacques Pena Chi, MD [Primary Care Provider] - Surgical History: angioplasty, cataract, herniorrhaphy, TURP, - - AICD placement Lives: Spouse/ Significant Other Smoking Status: Never smoker - Family History Maternal Family History: Family History (Last Reviewed 12/18/19 @ 13:[address] Roque Lawrence MD) Father CAD (coronary artery disease) Myocardial infarction Sudden cardiac Mother Diabetes Family History: Reports: Heart Disease Paternal Family History: Family History (Last Reviewed 12/18/19 @ 13:[address] Roque Lawrence MD) Father CAD (coronary artery disease) Myocardial infarction Sudden cardiac Mother Diabetes Family History: Reports: Heart Disease Review of Systems General: Reports: Malaise, Sweats. Denies: Chills, Fever Eyes: Denies: Visual changes - bilaterally, Diplopia ENT: Denies: Bilateral ear pain, Rhinorrhea, Sore throat Cardiovascular: Reports: Chest pain. Denies: Palpitations, Heart racing Respiratory: Reports: Dyspnea, Dyspnea on exertion. Denies: Cough Gastrointestinal: Denies: Abdominal pain, Nausea, Vomiting, Diarrhea, Melena, Hematochezia Genitourinary: Denies: Dysuria, Hematuria, Frequency Musculoskeletal: Denies: Neck pain, Back pain, Swelling, Extremity Pain Skin: Denies: Rash, Wounds Neurological: Denies: Headache, Weakness, Numbness Physical Exam Vital Signs/Narrative: Vital Signs Temp Pulse Resp BP Pulse Ox 01/10/20 01:08 72 156/84 H 01/10/20 00:36 98.4 F 70 18 167/77 H 100 Inital Vital Signs reviewed: Yes General: Well nourished, Well developed, No Acute Distress Head: Normocephalic, Atraumatic Eyes: Perrl, EOMI ENT: Moist mucous membranes, No rhinorrhea Neck: Supple, Nontender, No JVD Cardiovascular: Regular rate, Regular rhythm, No murmurs, - - Equal bilateral 2+/4 radial pulses Respiratory: No distress, CTA bilaterally, Chest nontender Abdomen: Soft, Nontender, Nondistended, Normal bowel sounds Back: Nontender, Normal Inspection Extremities: Nontender, No edema. Negative for: Calf Tenderness Skin: Normal color, No rash Neurological: Alert, Oriented x3, Cranial nerves II-XII grossly intact, Normal Strength, Normal Sensation Psychological: Normal affect, Normal Mood Diagnostic/Tx/Re-eval - Rhythm Strip Rhythm Strip: Sinus Rhythm Rate: 70 Ectopy: None - EKG Initial EKG Interpretation: Sinus Rhythm, No Acute Injury Pattern, LAFB, Non-Specific ST Changes - Lateral, almost biphasic T waves which is a little different in 1, aVL compared with prior on 08/15/2019. Treatment: Aspirin, NTG Topical Repeat Eval: Pain Free BASHIR Risk: Age >/= 65, >/= 3RF, H/O CAD, ASA within 7 days, Elevated Enzymes Score: 5 - Medical Decision Making Patient's EKG shows some mild lateral nonspecific abnormalities, but is otherwise unchanged from prior. He has an elevated troponin, however looking back at his old measurements, he always has an elevated level. It is not especially high now. The rest of his work-up was unremarkable and he remained pain-free with nitroglycerin paste on his chest. Plan is for admission to PCU observation for further evaluation and cardiology consultation. ED Disposition - Plan for ED Patient: Disposition: Acute Care Hospital [facility] Diagnosis: Atypical chest pain, Coronary artery disease, Ischemic cardiomyopathy Referrals: Jacques Pena Chi, MD [Primary Care Provider] -
--- NOTE | 2020-01-10 02:22 | HP.PCM_ITS ---
Problem List (1) Chest pain Status: Acute Qualifiers: Chest pain type: unspecified Qualified Code(s): R07.9 - Chest pain, unspecified (2) Coronary artery disease Status: Chronic Qualifiers: Coronary Disease-Associated Artery/Lesion type: unspecified vessel or lesion type [place] vs. transplanted heart: unspecified whether torres martinez or transplanted heart Associated angina: angina presence unspecified Qualified Code(s): I25.10 - Atherosclerotic heart disease of tor[place] martinez coronary artery without angina pectoris (3) History of coronary artery stent placement Status: Chronic Comment: PCI-DOUGLAS-Mid LCx w/ 3.5 x 30 mm Resolute Gabrielle and DOUGLAS- Distal LMT w/ 5.0 x 22 mm Resolute [place] 09/16/2019; PCI-DOUGLAS-LAD 2.0 x 30 mm Resolute [place], 2.5 x 38 mm and 3.0 x 23 mm Xience [place] 04/27/18; WEB-JSU-Nmx-Distal RCA w/ 4.0 x 20 mm Promus Premier and DOUGLAS-Prox RCA w/ 4.0 x 12 mm Promus Premier 11/18/2014 ;Cutting balloon PTCA of posterior ventricular branch of RCA and PCI-Stent Prox LAD w/ 3.0 x 8 mm Penta Stent and Mid LAD w/ 3.0 x 13 mm Penta Stent 03/05/2002; (4) Ischemic cardiomyopathy Status: Chronic Comment: Severe left ventricular systolic dysfunction with an akinetic mid to apical anterior wall and an akinetic mid inferior wall segment, in the past and a viability study has demonstrated no viability to the anterior wall. (5) History of implantable cardiac defibrillator (ICD) Status: Chronic (6) Chronic systolic (congestive) heart failure Status: Chronic (7) Nonsustained ventricular tachycardia Status: Chronic (8) Essential (primary) hypertension Status: Chronic (9) HLD (hyperlipidemia) Status: Chronic Qualifiers: Hyperlipidemia type: pure hypercholesterolemia Qualified Code(s): E78.00 - Pure hypercholesterolemia, unspecified; E78.0 - Pure hypercholesterolemia (10) Left carotid artery stenosis Status: Chronic History of Present Illness Date of Admission: 01/10/20 Chief Complaint: Chest pain The patient is an 84 y/o M w/ PMHx: CAD s/p PCI most recently 09/2019, HTN, HLD, Carotid disease, Ischemic Cardiomyopathy, Chronic Systolic CHF, Hx NSVT who presents to the [facility] ED on 01/10/20 with history of onset of chest discomfort approximately 45 minutes prior to arrival noted to be intermittent, sharp s tabbing and also pressure-like heaviness sensation in nature specifically on the left chest without radiation with associated lightheadedness specifically when he attempted to get up and ambulate following onset of chest discomfort but no specific nausea, emesis with no relation to exertion with self administration of nitroglycerin with clinical improvement and resolution. Patient noted his chest discomfort was rated at 7-8 out of 10 in severity at its worse and is now completely resolved. He does admit to ongoing exertional dyspnea for the several weeks. Work-up in the ED included T 98.4, heart rate 70, BP 167/77, respiratory rate 18, 100% on room air, CBC with WBC 8.1, hemoglobin 12.6, platelet 203 without market shift, BMP with BUN/creatinine 24/1.49, glucose 124, troponin 0.091, chest x-ray with cardiomegaly with no acute cardiopulmonary findings otherwise, EKG with sinus rhythm with nonspecific ST changes with no acute evidence of ischemia similar to prior. In the ED patient ministered Nitro- Bid and aspirin therapy. Patient noted resolution of chest discomfort following nitro bid therapy placement. Past Medical History Past Medical History (Chronic Problems): Chronic Problems (Last Reviewed 12/18/19 @ 13:[address] 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) History of non-ST elevation myocardial infarction (NSTEMI) (Chronic 08/13/19) 04/2018 History of coronary artery stent placement (Chronic 09/16/19) PCI-DOUGLAS-Mid LCx w/ 3.5 x 30 mm Resolute [place] and DOUGLAS- Distal LMT w/ 5.0 x 22 mm Resolute Gabrielle 09/16/2019; PCI-DOUGLAS-LAD 2.0 x 30 mm Resolute [place], 2.5 x 38 mm and 3.0 x 23 mm Xience Sol[place]ad 04/27/18; VIK-DNW-Xww-Distal RCA w/ 4.0 x 20 mm Promus Premier and DOUGLAS-Prox RCA w/ 4.0 x 12 mm Promus Premier 11/18/2014 ;Cutting balloon PTCA of posterior ventricular branch of RCA and PCI-Stent Prox LAD w/ 3.0 x 8 mm Penta Stent and Mid LAD w/ 3.0 x 13 mm Penta Stent 03/05/2002; Ischemic cardiomyopathy (Chronic) Severe left ventricular systolic dysfunction with an akinetic mid to apical anterior wall and an akinetic mid inferior wall segment, in the past and a viability study has demonstrated no viability to the anterior wall. History of implantable cardiac defibrillator (ICD) (Chronic 05/17/10) Chronic systolic (congestive) heart failure (Chronic) Nonsustained ventricular tachycardia (Chronic) Essential (primary) hypertension (Chronic) HLD (hyperlipidemia) (Chronic) Left carotid artery stenosis (Chronic) Medical History: Medical History (Last Reviewed 12/18/19 @ 13:[address] 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 Chronic systolic (congestive) heart failure (Chronic) I50.22 Nonsustained ventricular tachycardia (Chronic) I47.2 Essential (primary) hypertension (Chronic) I10 HLD (hyperlipidemia) (Chronic) E78.5 Left carotid artery stenosis (Chronic) I65.22 DDD (degenerative disc disease) GERD (gastroesophageal reflux disease) K21.9 Hiatal hernia K44.9 Polycythemia D75.1 Segmental and somatic dysfunction of pelvic region M99.05 Segmental and somatic dysfunction of thoracic region M99.02 Carotid artery disease (Inactive) I77.9 Allergies hydrochlorothiazide Allergy (Severe, Verified 01/10/20 00:44) Severe itching rash ranolazine [From Ranexa] Adverse Reaction (Severe, Verified 01/10/20 00:44) Rash omeprazole Adverse Reaction (Verified 01/10/20 00:44) Unknown Phenothiazines Adverse Reaction (Verified 01/10/20 00:44) Unknown Wxafvro-Nuw-Zfa Reductase Inhibitor Adverse Reaction (Verified 01/10/20 00:44) myalgias PHENEGRANZOLE Adverse Reaction (Uncoded 12/18/19 12:12) Unknown Home Medications: Ambulatory Orders Medication Instructions Recorded Aspirin E.C. [Ecotrin] 81 mg PO DAILY@0800 07/11/13 Pantoprazole Sodium [Protonix] 40 mg PO DAILY 10/29/16 Clopidogrel Bisulfate [Plavix] 75 mg PO DAILY 04/20/18 nitroglycerin 0.4 mg sublingual 0.4 mg SUBLINGUAL Q5-15M PRN #25 09/19/18 tablet tab folic acid 400 mcg tablet 0.4 mg PO DAILY 10/23/18 furosemide 40 mg tablet 20 mg PO DAILY #90 tab 07/29/19 metoprolol succinate 100 mg 100 mg PO DAILY #90 tab 10/21/19 tablet,extended release 24 hr potassium chloride 20 mEq 20 meq PO DAILY #30 tab 12/23/19 tablet,extended release Surgical History: Surgical History (Last Reviewed 12/18/19 @ 13:[address] Roque Lawrence MD) History of coronary artery stent placement (Chronic) Onset Date: 09/16/19 Z95.5 PCI-DOUGLAS-Mid LCx w/ 3.5 x 30 mm Resolute [place] and DOUGLAS- Distal LMT w/ 5.0 x 22 mm Resolute [place] 09/16/2019; PCI-DOUGLAS-LAD 2.0 x 30 mm Resolute [place], 2.5 x 38 mm and 3.0 x 23 mm Xience Sol[place]ad 04/27/18; ZME-YCM-Lwh-Distal RCA w/ 4.0 x 20 mm Promus Premier and DOUGLAS-Prox RCA w/ 4.0 x 12 mm Promus Premier 11/18/2014 ;Cutting balloon PTCA of posterior ventricular branch of RCA and PCI-Stent Prox LAD w/ 3.0 x 8 mm Penta Stent and Mid LAD w/ 3.0 x 13 mm Penta Stent 03/05/2002; History of implantable cardiac defibrillator (ICD) (Chronic) Onset Date: 05/17/10 History of electrophysiologic study Onset Date: 2009 Z98.890 09/11/2002 @ [facility] per Dr. Holt; and 05/19/[address] Madrigal [facility] History of intraocular lens implant Z96.1 History of left heart catheterization Onset Date: 08/15/19 Z98.890 03/05/2002;08/20/2002; 04/2004; May 2010; 11/18/2014, 04/23/2018 Surgical History: angioplasty, cataract, herniorrhaphy, TURP, - - AICD placement Psychiatric History: No pertinent psych hx Lives: Spouse/ Significant Other Smoking Status: Never smoker Tobacco Use: Non-smoker Alcohol: None Drugs: None - *Family History Maternal Family History: Family History (Last Reviewed 12/18/19 @ 13:[address] Roque Lawrence MD) Father CAD (coronary artery disease) Myocardial infarction Sudden cardiac Mother Diabetes History Items: Heart Disease Paternal Family History: Family History (Last Reviewed 12/18/19 @ 13:[address] Roque Lawrence MD) Father CAD (coronary artery disease) Myocardial infarction Sudden cardiac Mother Diabetes History Items: Heart Disease Review of Systems Constitutional: Reports: Malaise, Weakness, Fatigue. Denies: Anorexia, Chills, Fever, Weight Change HEENT: Denies: Head Aches, Sinus Congestion, Sinus Drainage Cardiovascular: Reports: Chest Pain, Chest Pressure, Light Headedness. Denies: Chest Tightness, Heaviness, Orthopnea, Palpitations, Syncope Respiratory: Reports: Shortness of breath upon exertion. Denies: Cough, Shortness of Breath, Shortness of breath at rest, Sputum production Gastrointestinal: Denies: Abdominal Pain, Nausea, Vomiting Genitourinary: Denies: Dysuria Musculoskeletal: Reports: Joint Pain. Denies: Joint Tenderness Skin: Denies: Rash, Wounds Neurological: Denies: Numbness, Tingling, Focal weakness Psychiatric: Denies: Anxiety, Depression, Homicidal Ideations, Suicidal Ideations Hematologic/ Lymphatic: Reports: Easy Bruising, Easy Bleeding VTE Information - Inpt Only VTE Present on Admission: No VTE Mechan Device Prophylaxis: SCD's VTE Pharm Prophylaxis ordered?: Yes Patient Problems: Active and Suspected Problems (Last Reviewed 12/18/19 @ 13:[address] Roque Lawrence MD) Atypical chest pain (Acute) Chest pain (Acute) Subjective: Patient seated upright in ED bed, no acute distress, notes complete resolution chest discomfort from prior. Objective: Physical Examination: General: awake, alert, oriented x 3 and cooperative, seated upright in the ED bed, no acute distress, no current chest discomfort. Skin: normal color, turgor, no icterus, cyanosis. HEENT: AT/NC, EOMI, PERRLA, mildly dry MM, no carotid bruits or JVD noted. Lungs: CTA bilaterally, moderate effort, mild decrease BL bases, no rales, ronchi or wheezing. Heart: Regular rate and rhythm; no gallop, rub audible. Abdomen: soft, NTTP, ND, normal BS, no HSM. Extremities: no cyanosis, clubbing, or edema. Neurological: patient awake, alert, oriented x 3; cognitive function intact; pupils equally reactive to light and accomodation; cranial nerves II-XII grossly normal, moving all 4 extremities, no focal deficits, strength moderately globally [place] secondary to acute presentation. Psychiatric: affect appears fatigued otherwise normal, no acute evidence of depressive or anxiety feelings. - Physical Exam Vitals/I&O's: Vital Signs Temp Pulse Resp BP Pulse Ox 98.4 F 70 16 149/81 H 93 01/10/20 00:36 01/10/20 02:20 01/10/20 02:20 01/10/20 02:20 01/10/20 02:20 Oxygen Delivery Method Room Air Weight: 181 lb 14.102 oz Body Mass Index (BMI) 26.1 Laboratory Results 01/10/20 00:45: WBC 8.1, RBC 4.13 L, Hgb 12.6 L, Hct 37.4 L, MCV 90.6, MCH 30.5, MCHC 33.7, RDW Std Deviation 45.6 H, RDW Coeff of Dane 13.8, Plt Count 203, MPV 12.8 H, Immature Gran % (Auto) 0.400, Neut % (Auto) 63.8, Lymph % (Auto) 23.7, [place] % (Auto) 8.9, Eos % (Auto) 2.5, Baso % (Auto) 0.7, Absolute Neuts (auto) 5.2, Absolute Lymphs (auto) 1.92, Nucleated RBC % 0 01/10/20 00:45: Sodium 137, Potassium 4.1, Chloride 103, Carbon Dioxide 29.0, Anion Gap 5, BUN 24 H, Creatinine 1.49 H, Estim Creat Clear Calc 38.79, Est GFR (MDRD) Af Amer 58 L, Est GFR (MDRD) Non-Af 48 L, BUN/Creatinine Ratio 16.1, Glucose 124 H, Calcium 9.7, Troponin I 0.091 H Assessment/Plan All Active Problems (Last Reviewed 12/18/19 @ 13:[address] Roque Lawrence MD) Atypical chest pain (Acute) Chest pain (Acute) Elevated troponin I level (Resolved) The patient is an 84 y/o M w/ PMHx: CAD s/p PCI most recently 09/2019, HTN, HLD, Carotid disease, Ischemic Cardiomyopathy, Chronic Systolic CHF, Hx NSVT who presents to the [facility] ED on 01/10/20 with history of onset of chest discomfort approximately 45 minutes prior to arrival noted to be intermittent, sharp in nature specifically on the left chest without radiation with associated lightheadedness but no specific nausea, emesis with no relation to exertion with self administration of nitroglycerin with clinical improvement and resolution. 1. Chest Pain: EKG in ED with sinus rhythm with nonspecific ST changes no acute evidence of ischemia, CXR w/ cardiomegaly with no acute cardiopulmonary findings otherwise, initial trop 0.091 however per review of cardiac enzyme trending patient routinely has elevated enzymes with last noted 12/23/2019 0.108. Will admit to PCU, place on a monitored bed to assure no acute myocardial infarction with serial cardiac enzymes and EKGs. Given recent cardiac intervention and significant cardiac history will request cardiology consultation. ASA, NG, morphine. FLP in AM. Magnesium pending. 2. CAD: 08/15/2019 cardiac catheterization with severe coronary artery disease with mild distal left main coronary stenosis, totally occluded mid to distal left anterior descending artery and moderately severe disease noted in the proximal left circumflex artery as well as severe LV systolic dysfunction with at that time concern for high risk intervention needs with recommendation for future tertiary facility evaluation for intervention with eventual successful PCI of a 70% diffuse mid left circumflex stenosis with a 3.5 x 30 mm resolute drug-eluting gabrielle stent and distal left main coronary artery of approximately 70% with a 5.0 x 22 mm resolute Gabrielle stent. We will continue aspirin, Plavix, metoprolol, not on statin therapy. 3. Ischemic cardiomyopathy, systolic CHF: We will continue patient home aspirin, Plavix, metoprolol, Lasix therapy. Last cardiology evaluation with potential for upcoming future low-dose RADAMES inhibitor addition. Not on statin therapy. 4. Chronic Kidney Disease Stage III: Admission BUN/Cr 24/1.49, baseline renal function 1.1-1.2, mildly increased from baseline, repeat BMP in AM. 5. History of NSVT: Patient was previously on sotalol but did not tolerate this regimen therefore transition to amiodarone, continue, s/p pacemaker status. 6. Hypertension: Continue home regimen including metoprolol, Lasix, PRN hydralazine. 7. Hyperlipidemia: Not on statin therapy, FLP in AM. 8. DVT prophylaxis: SCDs, Lovenox. 9. CODE status: Patient HCPGANGA is his who is present and living will is currently in place. Discussed CODE status at length including difference between FULL code, DNR-CCA and DNR-CC status. Following discussions about the differences in these status, requested full code status. Advanced Care Planning Face to Face Time: 16 minutes. OBSV E&M: [id number] Initial observation care L3 Procedures: 16341 Advncd Care Plan 30 Min
--- NOTE | 2020-01-10 03:19 | EKG12_ITS ---
Test Reason : CP ADMIT Blood Pressure : / mmHG Vent. Rate : 069 BPM Atrial Rate : 069 BPM P-R Int : 166 ms QRS Dur : 128 ms QT Int : 446 ms P-R-T Axes : 005 -42 066 degrees QTc Int : 477 ms Normal sinus rhythm Left axis deviation Left ventricular hypertrophy with QRS widening Abnormal ECG Confirmed by JENNIFER ROCHA, JESSE ([id number]), production editor BITA ROBB ([id number]) on 01/13/2020 1:39:01 PM Referred By: DR LERMA Confirmed By:JESSE RODRIGUEZ MD
[2020-01-10 03:33] LABS: Magnesium 2.2 mg/dL (1.6-2.6)
[2020-01-10 06:32] LABS: Absolute Lymphocyte Count 1.65 X10^3/uL (0.83-4.51); Absolute Neutrophil Count 4.4 X10^3/uL (2.0-7.7); Basophil# 0.05 X10^3/uL; Basophil% 0.7 % (0-1); Eosinophil# 0.19 X10^3/uL; Eosinophils% 2.7 % (0-5); Hematocrit 36.5 % (40-54); Hemoglobin 12.1 g/dL (13.0-16.5); Lymphocyte # 1.65 X10^3/ul (4.0); Lymphocyte % 23.8 % (19-41); Mean Corp Hgb Conc 33.2 g/dL (32-36); Mean Corpuscular Hgb 30.8 pg (27.0-32.0); Mean Corpuscular Volume 92.9 fL (80-94); Mean Platelet Vol. 12.8 fl (6.2-12.0); Monocyte# 0.61 X10^3/uL; Monocyte% 8.8 % (0-10); NRBC Flagged by Analyzer 0 % (0-5); Neutrophil # 4.39 X10^3/uL (2.7-7.7); Neutrophil % 63.3 % (47-70); Platelet Count 164 K/mm3 (150-450); RBC Distribution Width CV 13.6 % (11.6-14.6); Red Blood Count 3.93 M/mm3 (4.6-6.2); White Blood Count 6.9 K/mm3 (4.4-11.0)
[2020-01-10 07:04] LABS: AST(SGOT) 17 U/L (15-37); Alanine Aminotransfer ALT/SGPT 13 U/L (16-61); Albumin, Serum 3.5 g/dL (3.2-5.0); Alkaline Phosphatase 83 U/L (45-117); Anion Gap 7 (5-15); BUN 23 mg/dL (7-18); BUN/Creat Ratio 16.8 RATIO (10-20); Calcium,Total 9.5 mg/dL (8.5-10.1); Chloride 103 mmol/L (98-107); Cholesterol 180 mg/dL (200); Creatinine, Serum 1.37 mg/dL (0.70-1.30); EST Glomerular Filtration Rate 53 mL/min (>60); Est Glom Filt Rate - Afr Amer 64 mL/min (>60); Estimated Creatinine Clearance 42.18 ml/min; Globulin 3.6 g/dL (2.2-4.2); Glucose 112 mg/dL (74-106); High Density Lipoprotein 42 mg/dL; Potassium 4.1 mmol/L (3.5-5.1); Protein, Total 7.1 g/dL (6.4-8.2); Sodium Level 139 mmol/L (136-145); Triglycerides 111 mg/dL; Very Low Density Lipoprotein 22 mg/dL (5-40)
[2020-01-10] MEDS: Clopidogrel Bisulfate 75 MG Tablet PO (07:05)
[2020-01-10] MEDS: Aspirin E.C. 81 MG Tablet PO (07:05)
[2020-01-10] MEDS: Metoprolol(XL)Succ 100 MG Tablet PO (07:06)
--- NOTE | 2020-01-10 07:55 | CON.PCM_ITS ---
Reason for Consult Date of Consultation: 01/10/20 Reason for Consultation: Chest pain History of Present Illness: The patient is a 84 year old M who presented to the emergency room yesterday with complaints of chest discomfort. According to him he has been having some shortness of breath and fatigue and yesterday while sitting down watching television and eating a scoop or 2 of ice cream he had some chest discomfort described as a boring knifelike sensation. He got up and took some antacid and finally some nitroglycerin and got very concerned and so presented to the emergency room. He has been complaining over the last 2 to 3 weeks of fatigue he initially attributed to his amiodarone which he had been taking and was taken off of that. He says that this has continued. [] He has a history of coronary artery disease with angioplasty and stenting to his RCA and LAD. He also has a history of ischemic cardiomyopathy with prophylactic ICD. He had a heart catheterization in 2015 which demonstrated a long area of 95% stenosis of the distal LAD, RCA was previously stented and patent, circumflex patent. Viability demonstrated no viability in the anterior anteroseptal and apical varghese medical management was recommended. Patient had a stress test in October 2016 which demonstrated previous extensive anterior apical infarct, basal inferior infarct, inferolateral infarct with no ischemia. He had a NSTEMI in 04/2018 and underwent angioplasty and stenting of the proximal mid and distal left anterior descending artery. This was at [facility]. He had a 2.5 x 38 mm X science stent followed by 3.0 x 23 mm stent and a 2.0 x 30 mm stent. The circumflex artery was apparently left untouched. He presented again in September 2019 with shortness of breath and a non-ST elevation myocardial infarction. Cardiac catheterization demonstrated disease noted involving the proximal left circumflex artery. Left anterior descending artery was also severely diseased but had previously shown evidence of non-viability in the LAD territory. He underwent successful PCI of a 70% diffuse mid left circumflex stenosis with a 3.5 x 30 mm resolute drug-eluting gabrielle stent. There was also successful PCI of the distal left main coronary artery of approximately 70% with a 5.0 x 22 mm resolute [place] stent. He has been compliant with all his medications. He is also been compliant with his pacemaker check. On arrival to the emergency room his EKG remains unchanged and thus far his troponin is not significantly abnormal. He is currently chest pain-free. Past Medical History Allergies/Adverse Reactions: Allergies hydrochlorothiazide Allergy (Severe, Verified 01/10/20 00:44) Severe itching rash ranolazine [From Ranexa] Adverse Reaction (Severe, Verified 01/10/20 00:44) Rash omeprazole Adverse Reaction (Verified 01/10/20 00:44) Unknown Phenothiazines Adverse Reaction (Verified 01/10/20 00:44) Unknown Bndqmtw-Xgh-Wgs Reductase Inhibitor Adverse Reaction (Verified 01/10/20 00:44) myalgias PHENEGRANZOLE Adverse Reaction (Uncoded 12/18/19 12:12) Unknown Home Medications: Ambulatory Orders Medication Instructions Recorded Aspirin E.C. [Ecotrin] 81 mg PO DAILY@0800 07/11/13 Pantoprazole Sodium [Protonix] 40 mg PO DAILY 10/29/16 Clopidogrel Bisulfate [Plavix] 75 mg PO DAILY 04/20/18 nitroglycerin 0.4 mg sublingual 0.4 mg SUBLINGUAL Q5-15M PRN #25 09/19/18 tablet tab folic acid 400 mcg tablet 0.4 mg PO DAILY 10/23/18 furosemide 40 mg tablet 20 mg PO DAILY #90 tab 07/29/19 metoprolol succinate 100 mg 100 mg PO DAILY #90 tab 10/21/19 tablet,extended release 24 hr potassium chloride 20 mEq 20 meq PO DAILY #30 tab 12/23/19 tablet,extended release Polyethylene Glycol 3350 [Miralax] 17 gm PO DAILY 01/10/20 Past Medical History (Chronic Problems): Chronic Problems (Last Reviewed 12/18/19 @ 13:[address] 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) History of non-ST elevation myocardial infarction (NSTEMI) (Chronic 08/13/19) 04/2018 History of coronary artery stent placement (Chronic 09/16/19) PCI-DOUGLAS-Mid LCx w/ 3.5 x 30 mm Resolute Gabrielle and DOUGLAS- Distal LMT w/ 5.0 x 22 mm Resolute Gabrielle 09/16/2019; PCI-DOUGLAS-LAD 2.0 x 30 mm Resolute [place], 2.5 x 38 mm and 3.0 x 23 mm Xience Soledad 04/27/18; ICA-HIW-Ysh-Distal RCA w/ 4.0 x 20 mm Promus Premier and DOUGLAS-Prox RCA w/ 4.0 x 12 mm Promus Premier 11/18/2014 ;Cutting balloon PTCA of posterior ventricular branch of RCA and PCI-Stent Prox LAD w/ 3.0 x 8 mm Penta Stent and Mid LAD w/ 3.0 x 13 mm Penta Stent 03/05/2002; Ischemic cardiomyopathy (Chronic) Severe left ventricular systolic dysfunction with an akinetic mid to apical anterior wall and an akinetic mid inferior wall segment, in the past and a viability study has demonstrated no viability to the anterior wall. History of implantable cardiac defibrillator (ICD) (Chronic 05/17/10) Chronic systolic (congestive) heart failure (Chronic) Nonsustained ventricular tachycardia (Chronic) Essential (primary) hypertension (Chronic) HLD (hyperlipidemia) (Chronic) Left carotid artery stenosis (Chronic) Surgical History: angioplasty, cataract, herniorrhaphy, TURP, - - AICD placement Psychiatric History: No pertinent psych hx - *Family History Maternal Family History: Family History (Last Reviewed 12/18/19 @ 13:[address] Roque Lawrence MD) Father CAD (coronary artery disease) Myocardial infarction Sudden cardiac Mother Diabetes History Items: Heart Disease Paternal Family History: Family History (Last Reviewed 12/18/19 @ 13:[address] Roque Lawrence MD) Father CAD (coronary artery disease) Myocardial infarction Sudden cardiac Mother Diabetes History Items: Heart Disease Lives: Spouse/ Significant Other Smoking Status: Never smoker Tobacco Use: Non-smoker Alcohol: None Drugs: None Review of Systems - Review of Systems General: Denies: Fever, Night Sweats, Fatigue HEENT: Denies: Vision Change Cardiovascular: Reports: Chest Discomfort. Denies: Shortness of Breath, Orthopnea, PND, Peripheral Edema, Palpitations, Lightheadedness, Dizziness, Near Syncope, Syncope Respiratory: Denies: Cough, Sputum Production, Hemoptysis Gastrointestinal: Denies: Hematemesis, Hematochezia, Melena Genitourinary: Denies: Dysuria, Hematuria Skin: Denies: Rash Neurological: Denies: Dizziness Psychiatric: Denies: Anxiety Endocrine: Denies: Heat Intolerance Hematologic/ Lymphatic: Denies: Lymph Node Enlargement Objective: Vital Signs Temp Pulse Resp BP Pulse Ox 98.4 F 72 16 155/77 H 99 01/10/20 05:56 01/10/20 07:06 01/10/20 05:56 01/10/20 07:06 01/10/20 05:56 Oxygen Flow Rate (L/min) 2 Oxygen Delivery Method Nasal Cannula Weight: 178 lb 2.136 oz Body Mass Index (BMI) 25.5 01/10/20 00:45: WBC 8.1, RBC 4.13 L, Hgb 12.6 L, Hct 37.4 L, MCV 90.6, MCH 30.5, MCHC 33.7, Plt Count 203, MPV 12.8 H, Immature Gran % (Auto) 0.400, Neut % (Auto) 63.8, Lymph % (Auto) 23.7, Wayne % (Auto) 8.9, Eos % (Auto) 2.5, Baso % (Auto) 0.7, Absolute Neuts (auto) 5.2, Nucleated RBC % 0 01/10/20 00:45: Sodium 137, Potassium 4.1, Chloride 103, Carbon Dioxide 29.0, Anion Gap 5, BUN 24 H, Creatinine 1.49 H, Est GFR (MDRD) Af Amer 58 L, Est GFR (MDRD) Non-Af 48 L, BUN/Creatinine Ratio 16.1, Glucose 124 H, Calcium 9.7, Troponin I 0.091 H 01/10/20 00:45: Magnesium 2.2 01/10/20 04:36: Troponin I 0.095 H 01/10/20 06:20: WBC 6.9, RBC 3.93 L, Hgb 12.1 L, Hct 36.5 L, MCV 92.9, MCH 30.8, MCHC 33.2, Plt Count 164, MPV 12.8 H, Immature Gran % (Auto) 0.700, Neut % (Auto) 63.3, Lymph % (Auto) 23.8, Wayne % (Auto) 8.8, Eos % (Auto) 2.7, Baso % (Auto) 0.7, Absolute Neuts (auto) 4.4, Nucleated RBC % 0 01/10/20 06:20: Sodium 139, Potassium 4.1, Chloride 103, Carbon Dioxide 29.0, Anion Gap 7, BUN 23 H, Creatinine 1.37 H, Est GFR (MDRD) Af Amer 64, Est GFR (MDRD) Non-Af 53 L, BUN/Creatinine Ratio 16.8, Glucose 112 H, Calcium 9.5, Total Bilirubin 0.70, Triglycerides 111, Cholesterol 180, LDL Cholesterol 116, VLDL Cholesterol 22, HDL Cholesterol 42 01/10/20 06:20: Troponin I 0.095 H Rhythm: EKG: Normal sinus rhythm with no acute changes Assessment/Plan 1. Chest pain * Patient presents with recurrent chest discomfort. The etiology of the above is not entirely clear. He has complained in the past about the same. As you know he has had multiple stenting procedures to his right coronary artery, left anterior descending artery and most recently his circumflex artery as w ell as his left main coronary artery. There is no viability determined in his left anterior descending artery distribution. He has minimal troponin elevation. My recommendation at this time would be to proceed with a left heart catheterization to assess the recently placed stents. Depending on the findings further recommendations will be made. I have discussed this with him he understands and agrees to proceed. * 2. Coronary artery disease * He does have known coronary artery disease. This is as discussed above in the history of presenting illness. This will be reevaluated to make sure there is no progressive disease or restenosis of his stent. * He was previously on Ranexa and did not tolerate this as well. 3. Ischemic cardiomyopathy * He does have evidence of ischemic cardiomyopathy. His ejection fraction is estimated to be 25% and he has an ICD in place. He was previously on sotalol which was discontinued and he is now on metoprolol. His fatigue has improved somewhat but he continues to complain of persistent fatigue. * 4. Status post ICD implantation * He does have an ICD in place and this has been interrogated in the office and is noted to be functioning normally. I would not recommend we make any changes with regard to this. * 5. History of ventricular tachycardia. * He has in the past had evidence of ventricular tachyarrhythmias. He had been on sotalol which he did not tolerate and was put on amiodarone and got significantly fatigued with this. He is therefore being continued with traditional beta-suha on the above and will continue to monitor this carefully. * 6. Risk factor modification * He will continue with risk factor modification. * * Thank you for allowing me to participate in the care of your patient. Please don't hesitate to call if any issues arise. * addendum : Cardiac catheterization today demonstrates the following: Stented left main is patent. Left circumflex artery previously stented is noted to be patent. Ostial LAD with 60% stenosis and patent diagonal vessel. Dominant large right coronary artery previously stented in the proximal and mid segments which is patent Based on the above angiographic findings demonstrating patency of his recently placed stents as well as evidence of non-viability of his entire anterior wall we will continue with medical therapy. I would like to add isosorbide 60 mg a day to his regimen. He can be discharged later today.
[2020-01-10 08:12] LABS: Hemoglobin A1c 5.4 % (3.8-5.6)
[2020-01-10] MEDS: 0.9% Saline Lock 10 ML Syringe IV (08:36)
[2020-01-10] MEDS: 0.9% Normal Saline 1,000 ML 15 ML IV (08:38)
--- NOTE | 2020-01-10 09:25 | NURSING ---
Report called to lab tech spoke with CRHISTIN Flynn.
--- NOTE | 2020-01-10 10:36 | CL.D_ITS ---
Patient Name: FLEX GARCIA Study Date: 01/10/2020 Performing: Roque Lawrence MD Ht: 70.07 inches 178 cm : 1935 Wt: 182.98 lbs 83 kg Age: 84 Gender: male BSA: 2.01 PROCEDURE(S) PERFORMED DQ60-SSS/[facility] CLINICAL PROFILE AND INDICATIONS Indications: Worsening Angina Heart Failure: None Stress/Imaging Stress/Image Study Performed: No CAD Presentations: Unstable angina. CONCLUSIONS Triple-vessel disease with stents patent in the left main, left circumflex artery, proximal and mid r ight coronary artery. Disease noted in the left anterior descending artery with total occlusion mid segment and moderate disease in the previously placed stents. Diagonal vessel with good flow. Sever e low ventricular systolic dysfunction status post ICD implantation RECOMMENDATIONS Medical therapy DESCRIPTION OF PROCEDURE The patient arrived to the procedure lab. The risks and benefits of the procedure as well as a full d escription of our services here and current unavailability of surgical backup were fully explained to the patient and/or their significant other prior to the catheterization. The Timeout was completed, verifying the correct patient and procedure. The patient's procedural site was prepped and draped in the usual fashion. Local anesthetic was given subcutaneously to right groin region with Lidocaine 2%. Using a modified Seldinger technique, arterial access was obtained via the right femoral artery, a 5 Fr sheath was inserted. Left Coronary Artery selective angiography was performed in multiple views u sing a 5 Fr. JL4 catheter. Right Coronary Artery selective angiography was then performed in multiple views using a 5 Fr. 3DRC (Chaparro) catheter. LV to AO pullback pressures were then recorded, no LV gram was done..The arterial sheath was pulled and manual compression applied until hemostasis is achieved. CORONARY ANGIOGRAPHY DOMINANCE: Right Dominant LEFT HEART ASSESSMENT Left Ventricular Ejection Fraction: by Echo 25 % Depressed Left Ventricular systolic function LEFT MAIN: Previously placed stent is patent LEFT ANTERIOR DESCENDING ARTERY: PROX LAD: Previously placed stent has an instent 60ostial % restenosis MID LAD: is occluded CIRCUMFLEX ARTERY: PROX CIRC: Previously placed stent is patent MID CIRC: Previously placed stent is patent RIGHT CORONARY ARTERY: PROX RCA: Previously placed stent is patent MID RCA: Previously placed stent is patent RT PDA: Ostial - Moderate luminal irregularities up to 50% COMPLICATIONS No Complications PROCEDURE MEDICATIONS Versed 1 mg IV Versed 1 mg IV Oxygen: 2 L/min via nasal cannula Nitro patch was removed from patient ^FreeText^ 01/10/2020 10:17:38 SUMMARY OF HEMODYNAMIC DATA Time AIR REST AO 133/78 (99) SA 10:07:59 LV 121/9, 13 10:16:22 LV 123/9, 13 10:16:28 LVp 121/8, 12 10:16:34 AOp 122/64 (87) 10:16:39 RM AIR REST 10:34:44 AIR REST ECG 10:34:48 Signed By Roque Lawrence MD On 01/10/2020 10:35:16 AM Roque Lawrence MD
--- NOTE | 2020-01-10 11:32 | DCINST_ITS ---
- Discharge Diagnoses Current Active Problems: Current Active and Chronic Problems (Last Reviewed 12/18/19 @ 13:[address] Roque Lawrence MD) Atypical chest pain (Acute) Coronary artery disease (Chronic) Chest pain (Acute) Ischemic cardiomyopathy (Chronic) Severe left ventricular systolic dysfunction with an akinetic mid to apical anterior wall and an akinetic mid inferior wall segment, in the past and a viability study has demonstrated no viability to the anterior wall. You will use the following diet at home:: Cardiac Discharge Activity: Return to Normal Activity Call your doctor if you observe: Shortness of breath, Dizziness, Fainting spells, Chest pain Allergies/Adverse Reactions: Allergies hydrochlorothiazide Allergy (Severe, Verified 01/10/20 00:44) Severe itching rash ranolazine [From Ranexa] Adverse Reaction (Severe, Verified 01/10/20 00:44) Rash omeprazole Adverse Reaction (Verified 01/10/20 00:44) Unknown Phenothiazines Adverse Reaction (Verified 01/10/20 00:44) Unknown Bljuple-Lgq-Jwv Reductase Inhibitor Adverse Reaction (Verified 01/10/20 00:44) myalgias PHENEGRANZOLE Adverse Reaction (Uncoded 12/18/19 12:12) Unknown Medications to take at Discharge Aspirin E.C. [Ecotrin] 81 mg PO DAILY@0800 07/11/13 Pantoprazole Sodium [Protonix] 40 mg PO DAILY 10/29/16 Clopidogrel Bisulfate [Plavix] 75 mg PO DAILY 04/20/18 nitroglycerin 0.4 mg sublingual tablet 0.4 mg SUBLINGUAL Q5-15M PRN #25 tab 09/19/18 folic acid 400 mcg tablet 0.4 mg PO DAILY 10/23/18 metoprolol succinate 100 mg tablet,extended release 24 hr 100 mg PO DAILY #90 tab 10/21/19 potassium chloride 20 mEq tablet,extended release 20 meq PO DAILY #30 tab 12/23/19 Furosemide [Lasix] 40 mg PO DAILY tablet 01/10/20 Polyethylene Glycol 3350 [Miralax] 17 gm PO DAILY 01/10/20 isosorbide mononitrate 60 mg tablet,extended release 24 hr 60 mg PO DAILY #90 tab 01/10/20 Primary Care Physician: Jacques Pena Chi, MD [Primary Care Provider] - Please follow up with your Primary Care Physician in: 1 Week Test Results: Test results from this visit will be discussed in further detail at your follow- up appointment, if applicable. Please Follow Up With: Roque Lawrence MD When: 2 Weeks, may see [employer]/PA Proposed Discharge Date: 01/10/20
--- NOTE | 2020-01-10 11:33 | PCM.DC.SUM ---
<Amairani Álvarez - Last Filed: 01/10/20 11:52> Discharge Date and Diagnosis Date of Admission: 01/10/20 Date of Discharge: 01/10/20 - Primary Discharge Diagnosis Acute Problems: Active Problems (Last Reviewed 12/18/19 @ 13:[address] Roque Lawrence MD) 1. Chest pain with abnormal troponin 2. CAD with history of PCI 3. PILAR on Chronic kidney disease stage III 4. Ischemic cardiomyopathy/chronic systolic CHF 5. History of nonsustained ventricular tachycardia status post pacemaker 6. Hypertension 7. Hyperlipidemia - Secondary Discharge Diagnosis Chronic Problems: Chronic Problems (Last Reviewed 12/18/19 @ 13:[address] 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) History of non-ST elevation myocardial infarction (NSTEMI) (Chronic 08/13/19) 04/2018 History of coronary artery stent placement (Chronic 09/16/19) PCI-DOUGLAS-Mid LCx w/ 3.5 x 30 mm Resolute Victoriano and DOUGLAS- Distal LMT w/ 5.0 x 22 mm Resolute Victoriano 09/16/2019; PCI-DOUGLAS-LAD 2.0 x 30 mm Resolute [place], 2.5 x 38 mm and 3.0 x 23 mm Xience [place] 04/27/18; BRD-MRT-Mnw-Distal RCA w/ 4.0 x 20 mm Promus Premier and DOUGLAS-Prox RCA w/ 4.0 x 12 mm Promus Premier 11/18/2014 ;Cutting balloon PTCA of posterior ventricular branch of RCA and PCI-Stent Prox LAD w/ 3.0 x 8 mm Penta Stent and Mid LAD w/ 3.0 x 13 mm Penta Stent 03/05/2002; Ischemic cardiomyopathy (Chronic) Severe left ventricular systolic dysfunction with an akinetic mid to apical anterior wall and an akinetic mid inferior wall segment, in the past and a viability study has demonstrated no viability to the anterior wall. History of implantable cardiac defibrillator (ICD) (Chronic 05/17/10) Chronic systolic (congestive) heart failure (Chronic) Nonsustained ventricular tachycardia (Chronic) Essential (primary) hypertension (Chronic) HLD (hyperlipidemia) (Chronic) Left carotid artery stenosis (Chronic) Hospital Course and Treatment Imaging Results: Diagnostic Data Chest X-Ray 01/10/20 01:05 IMPRESSION: Cardiomegaly without evidence of acute cardiopulmonary disease. Electronically Signed: Lisa Durbin MD at 1:27 EDT , Service support , Dr. Lawrence- Cardiology Operations: None Procedures: None Summary of Care Provided: The patient is a 84 year old M admitted 01/10/2020 due to chest pain. 1. Chest pain with abnormal troponin-cardiology consulted. Patient underwent cardiac catheterization which demonstrated triple-vessel disease with stents patent in the left main, left circumflex artery and proximal mid right coronary artery. Disease noted in the LAD with total occlusion mid segment and moderate disease in the previously placed stents. Plan to continue with medical therapy. Placed on isosorbide 60 mg daily. Continue aspirin, Plavix, beta-dmitry. Follow-up with cardiology in 2 weeks. 2. CAD with history of PCI-cardiac cath as noted above. Continue with medical management. 3. PILAR on Chronic kidney disease stage III-improved. Recommend repeat BMP in 3 to 5 days by primary care provider given increase in Lasix regimen. 4. Ischemic cardiomyopathy/chronic systolic CHF-Lasix increased to 40 mg daily. LVEF per heart cath report 25%. 5. History of nonsustained ventricular tachycardia status post pacemaker-recent pacer check November 2019. 6. Hypertension-stable, continue current medication regimen. 7. Hyperlipidemia-not on statin. Patient seen and examined prior to discharge. Physical assessment as noted below. Patient is stable for discharge with follow up recommendations as noted above. This patient was seen by CHELSI Mueller under the supervision of Dr. Valdez. - Physical Exam Vitals/I&O's: Vital Signs Temp Pulse Resp BP Pulse Ox 98.4 F 63 16 127/65 H 96 01/10/20 05:56 01/10/20 11:12 01/10/20 11:12 01/10/20 11:12 01/10/20 11:12 Oxygen Flow Rate (L/min) 2 Oxygen Delivery Method Room Air Weight: 178 lb 2.136 oz Body Mass Index (BMI) 25.5 Intake and Output for Last 24 Hours 06/03/20 06/04/20 06/05/20 23:59 23:59 23:59 Intake Total 31.75 / 31.75 Balance 31.75 / 31.75 General: Alert, Oriented x3, Cooperative HEENT: Atraumatic, PERRLA, EOMI, Normocephalic Neck: Supple, No JVD, Negative Carotid Bruits Lungs: Clear to auscultation, Normal air movement Cardiovascular: Regular rate, No murmurs Abdomen: Bowel Sounds Present, Soft, Non Tender Extremities: No edema, Capillary Refill Less than 3 Seconds Skin: No rashes, No breakdown Musculoskeletal: No Tenderness to Palpation of Joints or Extremities Neurological: Cranial nerves II-XII grossly intact, Neuro grossly intact Psych/Mental Status: Normal Affect, Appropriate Laboratory Results 01/10/20 00:45: WBC 8.1, RBC 4.13 L, Hgb 12.6 L, Hct 37.4 L, MCV 90.6, MCH 30.5, MCHC 33.7, RDW Std Deviation 45.6 H, RDW Coeff of Dane 13.8, Plt Count 203, MPV 12.8 H, Immature Gran % (Auto) 0.400, Neut % (Auto) 63.8, Lymph % (Auto) 23.7, [place] % (Auto) 8.9, Eos % (Auto) 2.5, Baso % (Auto) 0.7, Absolute Neuts (auto) 5.2, Absolute Lymphs (auto) 1.92, Nucleated RBC % 0 01/10/20 00:45: Sodium 137, Potassium 4.1, Chloride 103, Carbon Dioxide 29.0, Anion Gap 5, BUN 24 H, Creatinine 1.49 H, Estim Creat Clear Calc 38.79, Est GFR (MDRD) Af Amer 58 L, Est GFR (MDRD) Non-Af 48 L, BUN/Creatinine Ratio 16.1, Glucose 124 H, Calcium 9.7, Troponin I 0.091 H 01/10/20 00:45: Magnesium 2.2 01/10/20 04:36: Troponin I 0.095 H 01/10/20 06:20: WBC 6.9, RBC 3.93 L, Hgb 12.1 L, Hct 36.5 L, MCV 92.9, MCH 30.8, MCHC 33.2, RDW Std Deviation 46.0 H, RDW Coeff of Dane 13.6, Plt Count 164, MPV 12.8 H, Immature Gran % (Auto) 0.700, Neut % (Auto) 63.3, Lymph % (Auto) 23.8, [place] % (Auto) 8.8, Eos % (Auto) 2.7, Baso % (Auto) 0.7, Absolute Neuts (auto) 4.4, Absolute Lymphs (auto) 1.65, Nucleated RBC % 0 01/10/20 06:20: Sodium 139, Potassium 4.1, Chloride 103, Carbon Dioxide 29.0, Anion Gap 7, BUN 23 H, Creatinine 1.37 H, Estim Creat Clear Calc 42.18, Est GFR (MDRD) Af Amer 64, Est GFR (MDRD) Non-Af 53 L, BUN/Creatinine Ratio 16.8, Glucose 112 H, Calcium 9.5, Total Bilirubin 0.70, AST 17, ALT 13 L, Alkaline Phosphatase 83, Total Protein 7.1, Albumin 3.5, Globulin 3.6, Albumin/Globulin Ratio 1.0, Triglycerides 111, Cholesterol 180, LDL Cholesterol 116, VLDL Cholesterol 22, HDL Cholesterol 42 01/10/20 06:20: Hemoglobin A1c 5.4 01/10/20 06:20: Troponin I 0.095 H Current Medications Acetaminophen (Tylenol) 650 mg PO Q6H PRN PRN PRN Reason: Pain Score 1-10/Temp > 100.7 F Al Hydroxide/Mg Hydroxide (Mylanta Ii) 30 ml PO Q6H PRN PRN PRN Reason: Gastric Burning Albuterol Sulfate (Ventolin Aerosols) 2.5 mg INHALATION Q2H PRN PRN PRN Reason: Dyspnea, wheezing Aspirin (Ecotrin) 81 mg PO DAILY@0800 [facility] Last Admin: 01/10/20 07:05 Dose: 81 mg Documented by: Clopidogrel Bisulfate (Plavix) 75 mg PO DAILY [facility] Last Admin: 01/10/20 07:05 Dose: 75 mg Documented by: Dextrose (D50w Syringe) 0 gm IV X1 PRN; Protocol PRN Reason: Hypoglycemia Enoxaparin Sodium (Lovenox) 40 mg SC DAILY [facility] Last Admin: 01/10/20 11:01 Dose: Not Given Documented by: Folic Acid (Folic Acid) 0.5 mg PO DAILY@0800 [facility] Furosemide (Lasix) 40 mg PO DAILY [facility] Glucagon () 1 mg IM .X1 PRN PRN Reason: Hypoglycemia Guaifenesin (Robitussin) 20 ml PO Q4H PRN PRN PRN Reason: COUGH Heparin Sodium (Beef Lung) (Heparin 500 Unit/5 Ml (100/Ml)) 500 unit IV UD PRN PRN Reason: HEPARIN FLUSH Hydralazine HCl (Apresoline Iv) 10 mg IV Q4H PRN PRN PRN Reason: SBP > 160 Sodium Chloride () 1,000 mls @ 0 mls/hr IV .Q0M [facility] Last Infusion: 01/10/20 10:45 Dose: 0 mls/hr Documented by: Isosorbide Mononitrate (Imdur) 60 mg PO DAILY [facility] Labetalol HCl (Trandate) 5 mg IV X1 PRN PRN Reason: SBP > 160 PRIOR TO SHEATH PULL Magnesium Hydroxide (Milk Of Magnesia) 30 ml PO DAILY PRN PRN PRN Reason: Constipation Melatonin (Melatonin) 3 mg PO QHS PRN PRN PRN Reason: INSOMNIA Metoprolol Succinate (Toprol Xl (Beta Dmitry)) 100 mg PO DAILY [facility] Last Admin: 01/10/20 07:06 Dose: 100 mg Documented by: Morphine Sulfate () 2 mg IV Q3H PRN PRN PRN Reason: Pain Score 6-10/10 Ondansetron HCl (Zofran) 4 mg IV Q8H PRN PRN PRN Reason: NAUSEA/VOMITING Oxycodone HCl (Oxyir) 5 mg PO Q4H PRN PRN PRN Reason: Pain Score 4-5/10 Pantoprazole Sodium (Protonix) 40 mg PO DAILY [facility] Polyethylene Glycol (Miralax) 17 gm PO DAILY [facility] Potassium Chloride (K-Dur) 20 meq PO DAILY [facility] Last Admin: 01/10/20 07:06 Dose: 20 meq Documented by: Psyllium Hydrophilic Mucilloid (Metamucil) 1 packet PO DAILY PRN PRN PRN Reason: Constipation Senna/Docusate Sodium (Senokot-S, Audrey-Colace) 2 tablet PO BID PRN PRN PRN Reason: Constipation Sodium Chloride () 10 - 40 ml IV UD PRN PRN Reason: SALINE FLUSH Last Admin: 01/10/20 08:36 Dose: 10 ml Documented by: Throat Lozenges (Cepacol Sore Throat Lozenge) 1 lozenge MUCOUS MEM Q2H PRN PRN PRN Reason: SORE THROAT Discharge Diet: Low fat/ Low Cholesterol Discharge Activity: Return to Normal Activity Call your doctor if you observe: Shortness of breath, Dizziness, Fainting spells, Chest pain Home Medications: Medications to take at Discharge Aspirin E.C. [Ecotrin] 81 mg PO DAILY@0800 07/11/13 Pantoprazole Sodium [Protonix] 40 mg PO DAILY 10/29/16 Clopidogrel Bisulfate [Plavix] 75 mg PO DAILY 04/20/18 nitroglycerin 0.4 mg sublingual tablet 0.4 mg SUBLINGUAL Q5-15M PRN #25 tab 09/19/18 folic acid 400 mcg tablet 0.4 mg PO DAILY 10/23/18 metoprolol succinate 100 mg tablet,extended release 24 hr 100 mg PO DAILY #90 tab 10/21/19 potassium chloride 20 mEq tablet,extended release 20 meq PO DAILY #30 tab 12/23/19 Furosemide [Lasix] 40 mg PO DAILY tab 01/10/20 Polyethylene Glycol 3350 [Miralax] 17 gm PO DAILY 01/10/20 isosorbide mononitrate 60 mg tablet,extended release 24 hr 60 mg PO DAILY #90 tab 01/10/20 Other Amb Orders: Basic Metabolic Profile (BMP) Time Frame: 1 Week, Facility: [facility], Location: Laboratory Primary Care Physician: Jacques Pena Chi, MD [Primary Care Provider] - Please follow up with your Primary Care Physician in: 1 Week Please Follow Up With: Roque Lawrence MD When: 2 Weeks, may see SMALL ARMS REPAIRER/PA Disposition: Home Minutes spent on discharge:: 35 Patient Condition:: Stable Medical Necessity - Tobacco Use Smoking Status: Never smoker Tobacco Use: Non-smoker Meaningful Use Info Meaningful Use Diagnoses (Choose all that apply): None applicable <Pina Valdez - Last Filed: 01/10/20 14:58> Discharge Date and Diagnosis - Secondary Discharge Diagnosis Chronic Problems: Chronic Problems (Last Updated 01/10/20 @ 11:33 by Amairani Álvarez NP-C) Coronary artery disease (Chronic) Atherosclerosis of coronary artery of [place] heart with angina pectoris (Chronic) 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) History of non-ST elevation myocardial infarction (NSTEMI) (Chronic 08/13/19) 04/2018 History of coronary artery stent placement (Chronic 09/16/19) PCI-DOUGLAS-Mid LCx w/ 3.5 x 30 mm Resolute [place] and DOUGLAS- Distal LMT w/ 5.0 x 22 mm Resolute [place] 09/16/2019; PCI-DOUGLAS-LAD 2.0 x 30 mm Resolute [place], 2.5 x 38 mm and 3.0 x 23 mm Xience [place] 04/27/18; OTG-CKU-Mzj-Distal RCA w/ 4.0 x 20 mm Promus Premier and DOUGLAS-Prox RCA w/ 4.0 x 12 mm Promus Premier 11/18/2014 ;Cutting balloon PTCA of posterior ventricular branch of RCA and PCI-Stent Prox LAD w/ 3.0 x 8 mm Penta Stent and Mid LAD w/ 3.0 x 13 mm Penta Stent 03/05/2002; Ischemic cardiomyopathy (Chronic) Severe left ventricular systolic dysfunction with an akinetic mid to apical anterior wall and an akinetic mid inferior wall segment, in the past and a viability study has demonstrated no viability to the anterior wall. History of implantable cardiac defibrillator (ICD) (Chronic 05/17/10) Chronic systolic (congestive) heart failure (Chronic) Nonsustained ventricular tachycardia (Chronic) Essential (primary) hypertension (Chronic) HLD (hyperlipidemia) (Chronic) Left carotid artery stenosis (Chronic) Hospital Course and Treatment Summary of Care Provided: Patient seen by Amairani GAGNON under my supervision The patient is a 84 year old M with a past medical history as outlined was admitted through the ED on 01/10/2020 with a complaint of chest pain. Troponins was initially 0.091 and trended up to 0.095. This was pretty much lower than his baseline actually since 2017. Patient had cardiac cath after cardiology was consulted and this demonstrated triple-vessel disease with stents in the left main, left circumflex artery and mid right proximal coronary artery. Disease was noted in the LAD with total occlusion in the midsegment and moderate disease in the previously placed stents. Plan was for medical therapy. Patient was placed on Imdur 60 mg daily and continue aspirin and Plavix as well as beta-dmitry. 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 Patient seen and examined prior to discharge. He had no complaints and felt well. Review of systems otherwise negative. Labs and vitals reviewed. Home medication reviewed and reconciled. o/e: Vital Signs Temp Pulse Resp BP Pulse Ox 98.5 F 66 17 109/60 93 01/10/20 13:22 01/10/20 14:19 01/10/20 14:19 01/10/20 14:19 01/10/20 14:19 [] General: Alert, Oriented x3, Cooperative HEENT: Atraumatic, PERRLA, EOMI, Normocephalic Neck: Supple, No JVD, Negative Carotid Bruits Lungs: Clear to auscultation, Normal air movement Cardiovascular: Regular rate, No murmurs Abdomen: Bowel Sounds Present, Soft, Non Tender Extremities: No edema, Capillary Refill Less than 3 Seconds Skin: No rashes, No breakdown Musculoskeletal: No Tenderness to Palpation of Joints or Extremities Neurological: Cranial nerves II-XII grossly intact, Neuro grossly intact Psych/Mental Status: Normal Affect, Appropriate Plan is for discharge home today as above. Rest as per Amairani Álvarez SMALL ARMS REPAIRER-C's note, which I have reviewed and endorsed. - Physical Exam Vitals/I&O's: Vital Signs Temp Pulse Resp BP Pulse Ox 98.5 F 66 17 109/60 93 01/10/20 13:22 01/10/20 14:19 01/10/20 14:19 01/10/20 14:19 01/10/20 14:19 Oxygen Flow Rate (L/min) 2 Oxygen Delivery Method Room Air Weight: 178 lb 2.136 oz Body Mass Index (BMI) 25.5 Intake and Output for Last 24 Hours 01/08/20 01/09/20 01/10/20 23:59 23:59 23:59 Intake Total 211.75 / 211.75 Balance 211.75 / 211.75 Laboratory Results 01/10/20 00:45: WBC 8.1, RBC 4.13 L, Hgb 12.6 L, Hct 37.4 L, MCV 90.6, MCH 30.5, MCHC 33.7, RDW Std Deviation 45.6 H, RDW Coeff of Dane 13.8, Plt Count 203, MPV 12.8 H, Immature Gran % (Auto) 0.400, Neut % (Auto) 63.8, Lymph % (Auto) 23.7, [place] % (Auto) 8.9, Eos % (Auto) 2.5, Baso % (Auto) 0.7, Absolute Neuts (auto) 5.2, Absolute Lymphs (auto) 1.92, Nucleated RBC % 0 01/10/20 00:45: Sodium 137, Potassium 4.1, Chloride 103, Carbon Dioxide 29.0, Anion Gap 5, BUN 24 H, Creatinine 1.49 H, Estim Creat Clear Calc 38.79, Est GFR (MDRD) Af Amer 58 L, Est GFR (MDRD) Non-Af 48 L, BUN/Creatinine Ratio 16.1, Glucose 124 H, Calcium 9.7, Troponin I 0.091 H 01/10/20 00:45: Magnesium 2.2 01/10/20 04:36: Troponin I 0.095 H 01/10/20 06:20: WBC 6.9, RBC 3.93 L, Hgb 12.1 L, Hct 36.5 L, MCV 92.9, MCH 30.8, MCHC 33.2, RDW Std Deviation 46.0 H, RDW Coeff of Dane 13.6, Plt Count 164, MPV 12.8 H, Immature Gran % (Auto) 0.700, Neut % (Auto) 63.3, Lymph % (Auto) 23.8, [place] % (Auto) 8.8, Eos % (Auto) 2.7, Baso % (Auto) 0.7, Absolute Neuts (auto) 4.4, Absolute Lymphs (auto) 1.65, Nucleated RBC % 0 01/10/20 06:20: Sodium 139, Potassium 4.1, Chloride 103, Carbon Dioxide 29.0, Anion Gap 7, BUN 23 H, Creatinine 1.37 H, Estim Creat Clear Calc 42.18, Est GFR (MDRD) Af Amer 64, Est GFR (MDRD) Non-Af 53 L, BUN/Creatinine Ratio 16.8, Glucose 112 H, Calcium 9.5, Total Bilirubin 0.70, AST 17, ALT 13 L, Alkaline Phosphatase 83, Total Protein 7.1, Albumin 3.5, Globulin 3.6, Albumin/Globulin Ratio 1.0, Triglycerides 111, Cholesterol 180, LDL Cholesterol 116, VLDL Cholesterol 22, HDL Cholesterol 42 01/10/20 06:20: Hemoglobin A1c 5.4 01/10/20 06:20: Troponin I 0.095 H Current Medications Acetaminophen (Tylenol) 650 mg PO Q6H PRN PRN PRN Reason: Pain Score 1-10/Temp > 100.7 F Al Hydroxide/Mg Hydroxide (Mylanta Ii) 30 ml PO Q6H PRN PRN PRN Reason: Gastric Burning Albuterol Sulfate (Ventolin Aerosols) 2.5 mg INHALATION Q2H PRN PRN PRN Reason: Dyspnea, wheezing Aspirin (Ecotrin) 81 mg PO DAILY@0800 [facility] Last Admin: 01/10/20 07:05 Dose: 81 mg Documented by: Clopidogrel Bisulfate (Plavix) 75 mg PO DAILY [facility] Last Admin: 01/10/20 07:05 Dose: 75 mg Documented by: Dextrose (D50w Syringe) 0 gm IV X1 PRN; Protocol PRN Reason: Hypoglycemia Enoxaparin Sodium (Lovenox) 40 mg SC DAILY [facility] Last Admin: 01/10/20 11:01 Dose: Not Given Documented by: Folic Acid (Folic Acid) 0.5 mg PO DAILY@0800 [facility] Last Admin: 01/10/20 11:41 Dose: 0.5 mg Documented by: Furosemide (Lasix) 40 mg PO DAILY [facility] Glucagon () 1 mg IM .X1 PRN PRN Reason: Hypoglycemia Guaifenesin (Robitussin) 20 ml PO Q4H PRN PRN PRN Reason: COUGH Heparin Sodium (Beef Lung) (Heparin 500 Unit/5 Ml (100/Ml)) 500 unit IV UD PRN PRN Reason: HEPARIN FLUSH Hydralazine HCl (Apresoline Iv) 10 mg IV Q4H PRN PRN PRN Reason: SBP > 160 Sodium Chloride () 1,000 mls @ 0 mls/hr IV .Q0M [facility] Last Infusion: 01/10/20 10:45 Dose: 0 mls/hr Documented by: Isosorbide Mononitrate (Imdur) 60 mg PO DAILY [facility] Last Admin: 01/10/20 12:00 Dose: 60 mg Documented by: Labetalol HCl (Trandate) 5 mg IV X1 PRN PRN Reason: SBP > 160 PRIOR TO SHEATH PULL Magnesium Hydroxide (Milk Of Magnesia) 30 ml PO DAILY PRN PRN PRN Reason: Constipation Melatonin (Melatonin) 3 mg PO QHS PRN PRN PRN Reason: INSOMNIA Metoprolol Succinate (Toprol Xl (Beta Dmitry)) 100 mg PO DAILY [facility] Last Admin: 01/10/20 07:06 Dose: 100 mg Documented by: Morphine Sulfate () 2 mg IV Q3H PRN PRN PRN Reason: Pain Score 6-10/10 Ondansetron HCl (Zofran) 4 mg IV Q8H PRN PRN PRN Reason: NAUSEA/VOMITING Oxycodone HCl (Oxyir) 5 mg PO Q4H PRN PRN PRN Reason: Pain Score 4-5/10 Pantoprazole Sodium (Protonix) 40 mg PO DAILY [facility] Last Admin: 01/10/20 11:41 Dose: 40 mg Documented by: Polyethylene Glycol (Miralax) 17 gm PO DAILY [facility] Last Admin: 01/10/20 11:45 Dose: 17 gm Documented by: Potassium Chloride (K-Dur) 20 meq PO DAILY [facility] Last Admin: 01/10/20 07:06 Dose: 20 meq Documented by: Psyllium Hydrophilic Mucilloid (Metamucil) 1 packet PO DAILY PRN PRN PRN Reason: Constipation Senna/Docusate Sodium (Senokot-S, Audrey-Colace) 2 tablet PO BID PRN PRN PRN Reason: Constipation Sodium Chloride () 10 - 40 ml IV UD PRN PRN Reason: SALINE FLUSH Last Admin: 01/10/20 08:36 Dose: 10 ml Documented by: Throat Lozenges (Cepacol Sore Throat Lozenge) 1 lozenge MUCOUS MEM Q2H PRN PRN PRN Reason: SORE THROAT OBSV E&M: 94016 Observation care discharge
[2020-01-10] MEDS: Folic Acid 1 MG Tablet 0.5 MG PO (11:41)
[2020-01-10] MEDS: Pantoprazole Sodium 40 MG Tablet PO (11:41)
[2020-01-10] MEDS: Polyethylene Glycol 3350 17 GM PACKET PO (11:45)
[2020-01-10] MEDS: Isosorbide Mononitrate 60 MG Tablet PO (12:00)
--- NOTE | 2020-01-10 12:45 | CASEMGMT ---
RN CM LATEX DIPPER CM to room to meet with patient for initial transition planning/care coordination assessment. RN ZOE introduced self and role at [facility]. Pt voices understanding and consents to assessment at this time. Pt resting in bed in no distress at this time. Pt is A/O at this time and answers all questions appropriately. Care providers, pharmacy, and demographics verified/updated at this time. PCP: Dr Pena- has an appt 01/17. Specialists: Dr Acharya--endocrinology. Dr Lawrence--cardiology. Has an appt 01/17. Per Amairani Álvarez NP, she would like pt to be seen @ [facility] w/in 2 weeks. Pt made aware and asks if this appt could be made for him. Quinn, Bianca, made aware. Preferred [facility]acy: [facility] Prescription Benefit: Yes Living Will/HPOA: Has both LW and Healthcare POA, who is his , Mary. Pt aware these are not on file @ [facility] LNOK: , Mary Living Arrangements: Lives with his . States is independent w/ADL's and ambulates w/out assistive device. /pt share home mgmt tasks. Transportation: Pt states drives self and states no transportation concerns at this time. also drives and will take him home @ d/c. DME: Denies using any DME and denies needs. HHC/SNF: No history of either and no needs identified. Pt wishes to return home and states has no concerns with going home at time of discharge. CM to follow for any discharge planning/needs. Pt voices no concerns/needs at this time. Advised pt to ask for CM if any questions/concerns/needs arise. Voices understanding. PLAN: Homew/spousal support and discharge plans in place. Chris BELTRE RN, CM
--- NOTE | 2020-01-10 13:53 | PHA.DC.MR ---
Pharmacy Service has performed discharge medication reconciliation for this patient. No new medications issued at time of discharge. Medications reviewed are from previously reported home medications. The patient's discharge medication list was reviewed for discrepancies and discrepancies were resolved. Home Medications Aspirin E.C. [Ecotrin] 81 mg PO DAILY@0800 07/11/13 Pantoprazole Sodium [Protonix] 40 mg PO DAILY 10/29/16 Clopidogrel Bisulfate [Plavix] 75 mg PO DAILY 04/20/18 nitroglycerin 0.4 mg sublingual tablet 0.4 mg SUBLINGUAL Q5-15M PRN #25 tab 09/19/18 folic acid 400 mcg tablet 0.4 mg PO DAILY 10/23/18 metoprolol succinate 100 mg tablet,extended release 24 hr 100 mg PO DAILY #90 tab 10/21/19 potassium chloride 20 mEq tablet,extended release 20 meq PO DAILY #30 tab 12/23/19 Furosemide [Lasix] 40 mg PO DAILY tab 01/10/20 Polyethylene Glycol 3350 [Miralax] 17 gm PO DAILY 01/10/20 isosorbide mononitrate 60 mg tablet,extended release 24 hr 60 mg PO DAILY #90 tab 01/10/20
--- NOTE | 2020-01-10 15:44 | NURSING ---
Pt walked with assist of this RN. Right femoral groin site remains soft, c/d/i.
== END 2020-01-10 10:23 | disposition home or self-care (01) ==
LOC: ED 01:39 → PCU 02:43
PROVIDERS: Admitting Provider Family Medicine; Emergency Provider Emergency Medicine; PCP Family Medicine Geriatric Medicine; Visit Provider Student in an Organized Health Care Education/Training Program
DX: R07.89 Other chest pain (principal); R53.83 Other fatigue; I25.10 Atherosclerotic heart disease of native coronary artery without angina pectoris; N17.9 Acute kidney failure, unspecified; N18.3 Chronic kidney disease, stage 3 (moderate); I25.5 Ischemic cardiomyopathy; I11.0 Hypertensive heart disease with heart failure; E78.5 Hyperlipidemia, unspecified; I50.22 Chronic systolic (congestive) heart failure; E78.00 Pure hypercholesterolemia, unspecified; I25.2 Old myocardial infarction; Z82.49 Family history of ischemic heart disease and other diseases of the circulatory system; Z88.8 Allergy status to other drugs, medicaments and biological substances; Z95.5 Presence of coronary angioplasty implant and graft; Z95.810 Presence of automatic (implantable) cardiac defibrillator; I65.22 Occlusion and stenosis of left carotid artery
CPT/HCPCS: 71045; 80048; 80053; 80061; 83036; 83735; 84484; 85025; 93005; 93454; 97802; 99152; 99153; 99218; 99251; 99283; J7030; Q9967; A4216; C1769; G0378; G0463

== ENCOUNTER → 2020-01-21 11:59 | Outpatient (CLI) | payer MEDICARE, OTHER, SELFPAY ==
[2020-01-10 03:19] VITALS: BMI 25.5
[2020-01-10 08:46] VITALS: BMI 26.1
[2020-01-21 12:33] LABS: Absolute Lymphocyte Count 1.05 X10^3/uL (0.83-4.51); Absolute Neutrophil Count 4.1 X10^3/uL (2.0-7.7); Basophil# 0.05 X10^3/uL; Basophil% 0.9 % (0-1); Eosinophils% 3.4 % (0-5); Hematocrit 35.7 % (40-54); Hemoglobin 11.7 g/dL (13.0-16.5); Lymphocyte # 1.05 X10^3/ul (4.0); Lymphocyte % 17.9 % (19-41); Mean Corp Hgb Conc 32.8 g/dL (32-36); Mean Corpuscular Hgb 30.5 pg (27.0-32.0); Mean Corpuscular Volume 93.2 fL (80-94); Mean Platelet Vol. 13.2 fl (6.2-12.0); Monocyte# 0.46 X10^3/uL; Monocyte% 7.8 % (0-10); NRBC Flagged by Analyzer 0 % (0-5); Neutrophil % 69.7 % (47-70); Platelet Count 179 K/mm3 (150-450); RBC Distribution Width SD 47.3 fl (35.1-43.9); Red Blood Count 3.83 M/mm3 (4.6-6.2); White Blood Count 5.9 K/mm3 (4.4-11.0)
[2020-01-21 12:50] LABS: Vitamin D,25 Hydroxy 35.5 ng/mL
[2020-01-21 12:56] LABS: AST(SGOT) 20 U/L (15-37); Alanine Aminotransfer ALT/SGPT 16 U/L (16-61); Albumin, Serum 3.6 g/dL (3.2-5.0); Alkaline Phosphatase 88 U/L (45-117); Anion Gap 6 (5-15); BUN 21 mg/dL (7-18); Calcium,Total 9.4 mg/dL (8.5-10.1); Chloride 101 mmol/L (98-107); Creatinine, Serum 1.31 mg/dL (0.70-1.30); EST Glomerular Filtration Rate 55 mL/min (>60); Est Glom Filt Rate - Afr Amer 67 mL/min (>60); Globulin 3.7 g/dL (2.2-4.2); Glucose 135 mg/dL (74-106); Potassium 3.8 mmol/L (3.5-5.1); Protein, Total 7.3 g/dL (6.4-8.2); Sodium Level 138 mmol/L (136-145)
== END ==
PROVIDERS: PCP Family Medicine Geriatric Medicine; Visit Provider Family Medicine Geriatric Medicine
DX: E23.6 Other disorders of pituitary gland (principal); E55.9 Vitamin D deficiency, unspecified; I10 Essential (primary) hypertension; N17.9 Acute kidney failure, unspecified
CPT/HCPCS: 36415; 80053; 82306; 84403; 84443; 85025

== ENCOUNTER → 2020-02-06 08:52 | Outpatient (CLI) | payer MEDICARE, OTHER, SELFPAY ==
[2020-01-10 08:46] VITALS: BMI 26.1
[2020-01-28 10:11] VITALS: BMI 25.8
[2020-01-31 15:10] VITALS: BMI 25.8
--- NOTE | 2020-02-06 08:53 | CDU_ITS ---
Reason For Study: Vertigo Rt. Velocities/BP Lt. Velocities/BP Prox CCA 115.2/13.4 cm/sec. Prox CCA 80.8/11.5 cm/sec. Mid CCA 96.9/13.4 cm/sec. Mid CCA 79/11.5 cm/sec. Dist CCA 83.9/13.4 cm/sec. Dist CCA 69.1/13.9 cm/sec. Prox ICA 88.4/20.4 cm/sec. Prox ICA 130.2/27 cm/sec. Mid ICA 95.1/24.8 cm/sec. Mid ICA 143/26.1 cm/sec. Dist ICA 73.6/18.8 cm/sec. Dist ICA 102.8/17 cm/sec. Rt. ICA/CCA = 0.98. Lt. ICA/CCA = 1.81. Prox ECA 138.9 cm/sec. Prox ECA 126.6/4.2 cm/sec. Rt. Vert. 130.2/22.5 cm/sec. Lt. Vert. 64.2/16.3 cm/sec. Right Extracranial There is homogeneous, smooth atherosclerotic plaque noted in the right common carotid artery. There is heterogeneous, irregular atherosclerotic plaque noted in the right internal carotid artery. There is heterogeneous, irregular atherosclerotic plaque noted in the right external carotid artery. Antegrade flow is noted in the right vertebral artery. Left Extracranial There is intimal thickening but no significant atherosclerotic plaque noted in the left common carotid artery. There is heterogeneous, irregular atherosclerotic plaque noted in the left internal carotid artery. There is heterogeneous, irregular atherosclerotic plaque noted in the left external carotid artery. Antegrade flow is noted in the left vertebral artery. Procedure Carotid Duplex [id number]. Exam performed in department. 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 <50% stenosis left external carotid Patent, antegrade left vertebral Only change is right vertebral since 10/31/18 Ordering Physician: Allegra Perez Referring Physician: Jacques Pena Chi Performed By: Yuliya Addison RVT
== END ==
PROVIDERS: PCP Family Medicine Geriatric Medicine; Referring Provider Physician Assistant Medical; Visit Provider Physician Assistant Medical
DX: I65.22 Occlusion and stenosis of left carotid artery (principal)
CPT/HCPCS: 93880

== ENCOUNTER 2020-03-06 11:30 | Outpatient (RCR) | payer MEDICARE, OTHER, SELFPAY ==
[2020-01-31 15:10] VITALS: BMI 25.8
[2020-02-05 00:29] VITALS: BP 128/54; BP 140/52
== END 2020-03-06 23:59 ==
LOC: CR 11:30
PROVIDERS: PCP Family Medicine Geriatric Medicine; Referring Provider Internal Medicine Cardiovascular Disease; Visit Provider Internal Medicine Cardiovascular Disease
DX: Z95.5 Presence of coronary angioplasty implant and graft (principal)
CPT/HCPCS: 93798

== ENCOUNTER → 2020-04-01 11:47 | Outpatient (CLI) | payer MEDICARE, OTHER, SELFPAY ==
[2020-03-25 09:55] VITALS: BMI 25.8
[2020-04-01 15:32] LABS: Hematocrit 35.3 % (40-54); Hemoglobin 11.4 g/dL (13.0-16.5)
[2020-04-06 12:07] LABS: Testosterone, Free 1.95 ng/dL (5.00-21.00)
[2020-04-06 13:28] LABS: Testosterone, % Free 1.73 % (1.50-4.20); Testosterone, Total 113 ng/dL (264-916)
== END ==
PROVIDERS: PCP Family Medicine Geriatric Medicine; Referring Provider Internal Medicine Endocrinology, Diabetes & Metabolism; Visit Provider Internal Medicine Endocrinology, Diabetes & Metabolism
DX: E29.1 Testicular hypofunction (principal); Z95.5 Presence of coronary angioplasty implant and graft
CPT/HCPCS: 36415; 84402; 84403; 85014; 85018; 93798

== ENCOUNTER 2020-04-06 11:30 | Outpatient (RCR) | payer MEDICARE, OTHER, SELFPAY ==
[2020-02-07 14:19] VITALS: BMI 25.8
[2020-03-07 00:28] VITALS: BP 128/54; BP 140/52
--- NOTE | 2020-04-02 11:44 | PCM.CR.ITP ---
Exercise - 90-day Assessment - Visit Date of Eval: 04/02/20 Session #:: 24 - Physician Prescribed Exercise Modalities: Treadmill, NuStep Frequency: 3x/week for 12 weeks [36 sessions] Intensity: 60-80% of age predicted maximum heart rate reserve Current METSs:: 3.0 UNCHANGED; patient unwilliing to increase intensity. Target Heart Rate:: 89-116 Current RPE:: 12.5-13 Maximum Excercise HR:: 94 Resting Blood Pressure: 128/70 Maximum Exercise Blood Pressure: 128/70 EKG Type: NSR/PACED; BBB AND RARE PVCs. - Outcomes & Goals Goals:: Verbalizes understanding of THR, RPE & goal METS by session 6, Documents in home exercise log/reports 30 min aerobic 5 day/wk by DC, Demonstrates accurate pulse taking by DC - Intervention & Plan Exercise Program Goals: Instruct on personal THR & RPE, Instruct on MET level & personal MET goal, Show patient to take own pulse /validate performance until accurate, Instruct on home exercise - 30-day Reassessments 30 day Reassessments:: Not Met - Physical Activity Home Exercise Physical Activity - Home Exercise: Safe Exercise, Warm-up, Self-monitoring, Cool-Down, Home Exercise > 30 min Daily, Sitting Time <3 hours/daily - Outcomes & Goals Outcomes/Goals: Demonstrates correct Warm-up/exercise Cool-Down (S3) if = 2.5 METs, Verbalizes symptoms of exercise intolerance by Session 3 (S3), Demonstrate safe equipment use (S3) & follows exercise prescrition (6) - Intervention & Plan Plan/Intervention: Instruct warm-up & cool-down if exercising at > 2 METs, Instruct on symptoms of exercise intolerance & actions to take, Instruct & monitor on saf, Assess intial functional capacity & safety risk - 30-day Reassessments 30 day Reassessments:: Not Met Nutrition - 90-Day Assessment - Program Goals Nutrition Program Goals: LDL <100 optimal. 100 - 129 Near optimal. 130 - 159 Borderline High. 160 - 189 High. Total Cholesterol <200 desirable. 200 - 239 Borderline High. >/= 240 High. HDL < 40 Low >/=60 High. Triglycerides <150 desirable. <199 optimal. VlDL 5 - 40. HgbA1C <7%. BMI <25 Patient has diagnosis of Hyperlipidemia (ICD E78)?: Yes - Visit Date of Assessment:: 04/02/20 Session #:: 24 - Cholesterol/Lipids Determine presence & major risk factors that modify LDL goal: Hypertension or hypertensive medication, Family history of premature CHD in Male < 55 years: female <65 yearsFa, Age men > 45 years; women >/= 55 years Outcomes/Goals: Pt IDs own risk factors & lifestyle modifications by Session 10, Verbalizes symptoms of angina & response by session 3., Pt independently manages Intervention/Plan: Instruct on personal lipid levels & lipid goals/NCEP guidelines, Instruct on cholesterol Referral to dietitian:: No - Diabetes (Other Core Measures) Diabetes Type: Not Applicable - Weight Mgt (Other Care) Not Applicable: Yes Height: 5 ft 10 in Weight:: 182 lb 8 oz BMI: 26.2 Diagnosis Overweight/Obesity BMI> 30% ICD-10 E66: No Diagnosis High BMI/Morbid Obesity BMI> 35% ICD-10 Z68: No Outcomes/Goals: Pt sets, maintains & shows weight loss goal & trend during rehab 30 day Reassessments:: Met - Healthy Eating Habits Will attend diet classes:: Yes Outcomes/Goals:: Consume diet rich in vegs,fruits,whole grain/high fiber,fish,lean meat, Limit sat/trans fats,cholesterol & added salts & sugars Intervention/Plan:: Assess current eating habits 30-day Reassessments:: Progressing - Education Gave educational materials for:: Healthy eating Medical- 90-Day Assessment - Visit Date of Eval: 04/02/20 Session #:: 24 - Medication Compliance Preventative Medication(s):: Aspirin, RADAMES inhibitor, Clopidogrel/P2Y12 inhibit, Statin/lipid, Beta suha H/O mental health issues: depression, anxiety, or addiction?: No Doesn?t believe in the benefits of treatment?: No Believes medications are unnecessary or harmful?: No Has a concern about medication side effects?: No Outcomes/Goals: Verbalizes medications,desired effect & common side effects @ DC, Pt self-reports following medication regimen, Keeps card in wallet w/medications listed by DC Interventions/plans: Instruct on medication effects & side effects, Review medication list w/patient every two weeks, Instruct importance of taking meds as ordered & assist problem solving 30-day Reassessments:: Progressing - Tobacco Use Tobacco Use: Non-smoker - Hypertension Hypertension Diagnosis:: Hypertension ICD-10 I10 Resting Blood Pressure:: 128/70 [employer] Hypertension Guidelines: [place] [employer] Hypertension Guidelines. Normal BP Less than 120/80. Elevated BP 120/80. Hypertension Stage 1: BP 130-139/80-89. Hypertesnion Stage 2: BP 140 or higher/90 or higher. Hypertension Crisis: BP higher than 180/120 Peak Exercise Blood Pressure:: 140/68 Outcomes/Goals: Able to verbalize/achieve optimal blood pressure <130/80, Incorporates diet changes & exercise for blood pressure control by DC Interventions/plan: Instruct on optimal blood pressure, hypertension & medications, Instruct on effects of sodium, alcohol, stress, exercise &hypertension 30 day Reassessments:: Progressing - Tobacco Cessation Referral Smoking Cessation Referral:: No Individual Education/Counseling:: No Education Schedule Given:: Yes Psychosocial - 90-Day Assess - VIsit Date of Eval: 04/02/20 Session #:: 24 Not Applicable: Yes History of previous Mental disease:: No - Target Goals Target Goals: Assess presence or absence of depression. Using a valid screening tool, maximizes coping skills. Positive support system - Psychosocial Test Tool Used:: PHQ-9 Questionnaire phq-9 Severity: Severity. 1-4 Minimal Depression. 5-9 Mild Depression. 10-14 Moderate Depression. 15-19 Moderately Sever Depression. 20-27 Severe Depression. Rule: - Referral to Behavioral Health PS - Interventions: Yes Attend Stress Management Classes, No Referral to Behavioral Health if PHQ-9 score >9:, No Referral to [facility], No Referral to Physician if PHQ-9 if score is 5-9: - Outcomes/Goals: See list Psychosocial Outcomes/Goals:: ID's personal stressors & 2 strategies to manage stress by discharge - Intervention/Plan: See List Interventions/Plan:: Assess stressors,coping strategies & signs of derpression on admission, Instruct/assist pt to develop coping & personal stress Mgt strategies, Instruct patient to recognize signs & symptoms of depression, Instruct patient to recog - 30-day Reassessments: 30 day Reassessments:: Progressing Patient Health Questionnaire 90-Day Re-eval Assessment 1. Little interest or pleasure in doing things: More than half the days 2. Feeling down, depressed, or hopeless: More than half the days 3. Trouble falling or staying asleep, or sleeping too much: Several days 4. Feeling tired or having little energy: Nearly every day 5. Poor appetite or overeating: Not at all 6. Feeling bad about yourself -- or that you are a failure or have let yourself or your family down: Not at all 7. Trouble concentrating on things, such as reading the newspaper or watching television: Several days 8. Moving or speaking so slowly that other people could have noticed. Or the opposite - being so fidgety or restless that you have been moving around a lot more than usual: Not at all 9. Thoughts that you would be better off , or of hurting yourself in some way: Not at all How difficult have these problems made it for you to do your work, take care of things at home, or get along with other people?: Somewhat difficult Total Score: 9 Self-Efficacy 90-Day Re-eval Assessment We would like to know how confident you are in doing certain activities. Please select your confidence level for:: Select your confidence level for the following using the scale 1-10 where 1 is not at all confident and 10 is totally confident. Your score is the average of all 6 responses. Fatigue: How confident are you that you can keep the fatigue caused by your disease from interfering with the things you want to do? Select Number: 3 Physical Discomfort or Pain: How confident are you that you can keep the physical discomfort or pain of your disease from interfering with the things you want to do? Select Number: 3 Emotional Distress: How confident are you that you can keep the emotional distress caused by your disease from interfering with the things you want to do? Select Number: 4 Other Symptoms or Health Problems: How confident are you that you can keep other symptoms or health problems from interfering with the things you want to do? Select Number: 4 Different Tasks and Activities: How confident are you that you can do the different tasks and activities needed to manage your health condition so as to reduce your need to see a doctor? Select Number: 4 Medication: How confident are you that you can do things other than just taking medication to reduce how much your illness affects your everyday life? Select Number: 4 Total Score:: 3
[2020-04-02 11:50] VITALS: BP 128/70; BP 140/68; BMI 26.2
== END 2020-04-06 23:59 ==
LOC: CR 11:30
PROVIDERS: PCP Family Medicine Geriatric Medicine; Referring Provider Internal Medicine Cardiovascular Disease; Visit Provider Internal Medicine Cardiovascular Disease
DX: Z95.5 Presence of coronary angioplasty implant and graft (principal)
CPT/HCPCS: 93798

== ENCOUNTER → 2020-04-23 09:23 | Outpatient (CLI) | payer MEDICARE, OTHER, SELFPAY ==
[2020-03-25 09:55] VITALS: BMI 25.8
[2020-04-02 11:50] VITALS: BMI 26.2
[2020-04-23 12:33] LABS: Absolute Lymphocyte Count 1.38 X10^3/uL (0.83-4.51); Absolute Neutrophil Count 3.9 X10^3/uL (2.0-7.7); Basophil# 0.06 X10^3/uL; Eosinophil# 0.21 X10^3/uL; Eosinophils% 3.4 % (0-5); Hemoglobin 12.5 g/dL (13.0-16.5); Lymphocyte # 1.38 X10^3/ul (4.0); Lymphocyte % 22.6 % (19-41); Mean Corp Hgb Conc 32.1 g/dL (32-36); Mean Corpuscular Hgb 30.6 pg (27.0-32.0); Mean Corpuscular Volume 95.6 fL (80-94); Mean Platelet Vol. 13.5 fl (6.2-12.0); Monocyte# 0.55 X10^3/uL; NRBC Flagged by Analyzer 0 % (0-5); Neutrophil # 3.87 X10^3/uL (2.7-7.7); Neutrophil % 63.5 % (47-70); Platelet Count 155 K/mm3 (150-450); Red Blood Count 4.08 M/mm3 (4.6-6.2); White Blood Count 6.1 K/mm3 (4.4-11.0)
[2020-04-23 13:27] LABS: AST(SGOT) 17 U/L (15-37); Alanine Aminotransfer ALT/SGPT 14 U/L (16-61); Albumin, Serum 3.8 g/dL (3.2-5.0); Alkaline Phosphatase 84 U/L (45-117); Anion Gap 3 (5-15); BUN 19 mg/dL (7-18); BUN/Creat Ratio 15.8 RATIO (10-20); CRP < 2.90 mg/L (0.0-3.0); Calcium,Total 9.5 mg/dL (8.5-10.1); Chloride 105 mmol/L (98-107); EST Glomerular Filtration Rate 61 mL/min (>60); Est Glom Filt Rate - Afr Amer 74 mL/min (>60); Globulin 3.7 g/dL (2.2-4.2); Glucose 138 mg/dL (74-106); Potassium 4.1 mmol/L (3.5-5.1); Protein, Total 7.5 g/dL (6.4-8.2); Sodium Level 139 mmol/L (136-145); Thyroid Stim Hormone (TSH) 1.49 uIU/mL (0.358-3.74)
[2020-04-23 13:43] LABS: Vitamin D,25 Hydroxy 43.5 ng/mL
[2020-04-23 14:16] LABS: Erythrocyte Sedimentation Rate 4 mm/hr (0-20)
== END ==
PROVIDERS: PCP Family Medicine Geriatric Medicine; Visit Provider Family Medicine Geriatric Medicine
DX: E23.6 Other disorders of pituitary gland (principal); E55.9 Vitamin D deficiency, unspecified; I10 Essential (primary) hypertension
CPT/HCPCS: 80053; 82306; 84403; 84443; 85025; 85652; 86140

== ENCOUNTER 2020-05-04 11:30 | Outpatient (RCR) | payer MEDICARE, OTHER, SELFPAY ==
[2020-03-25 09:55] VITALS: BMI 25.8
[2020-04-02 11:50] VITALS: BMI 26.2
[2020-04-07 00:32] VITALS: BP 128/70; BP 140/68
== END 2020-05-06 23:59 ==
LOC: CR 11:30
PROVIDERS: PCP Family Medicine Geriatric Medicine; Referring Provider Internal Medicine Cardiovascular Disease; Visit Provider Internal Medicine Cardiovascular Disease
DX: Z95.5 Presence of coronary angioplasty implant and graft (principal)
CPT/HCPCS: 93798

== ENCOUNTER → 2020-07-06 18:08 | Outpatient (CLI) | payer MEDICARE, OTHER, SELFPAY ==
[2020-03-25 09:55] VITALS: BMI 25.8
[2020-04-02 11:50] VITALS: BMI 26.2
== END ==
PROVIDERS: PCP Family Medicine Geriatric Medicine; Referring Provider Family Medicine Geriatric Medicine; Visit Provider Family Medicine Geriatric Medicine
DX: R06.89 Other abnormalities of breathing (principal)
CPT/HCPCS: 87633; 87635; C9803; U0003

== ENCOUNTER → 2020-07-23 09:41 | Outpatient (CLI) | payer MEDICARE, OTHER, SELFPAY ==
[2020-04-02 11:50] VITALS: BMI 26.2
[2020-07-22 10:05] VITALS: BMI 25.7
[2020-07-23 13:15] LABS: Absolute Lymphocyte Count 1.34 X10^3/uL (0.83-4.51); Absolute Neutrophil Count 6.8 X10^3/uL (2.0-7.7); Basophil# 0.05 X10^3/uL; Basophil% 0.6 % (0-1); Eosinophil# 0.14 X10^3/uL; Eosinophils% 1.6 % (0-5); Hematocrit 43.4 % (40-54); Hemoglobin 13.7 g/dL (13.0-16.5); Lymphocyte # 1.34 X10^3/ul (4.0); Mean Corp Hgb Conc 31.6 g/dL (32-36); Mean Corpuscular Hgb 29.8 pg (27.0-32.0); Mean Corpuscular Volume 94.6 fL (80-94); Mean Platelet Vol. 13.6 fl (6.2-12.0); Monocyte# 0.57 X10^3/uL; Monocyte% 6.4 % (0-10); NRBC Flagged by Analyzer 0 % (0-5); Neutrophil % 75.8 % (47-70); Platelet Count 175 K/mm3 (150-450); RBC Distribution Width SD 48.2 fl (35.1-43.9); Red Blood Count 4.59 M/mm3 (4.6-6.2)
[2020-07-23 13:32] LABS: Vitamin D,25 Hydroxy 33.2 ng/mL
[2020-07-23 13:34] LABS: ALB/GLOB Ratio 1.1 RATIO (0.9-2.4); AST(SGOT) 11 U/L (15-37); Alanine Aminotransfer ALT/SGPT 21 U/L (16-61); Albumin, Serum 3.8 g/dL (3.2-5.0); Alkaline Phosphatase 95 U/L (45-117); Anion Gap 5 (5-15); BUN 22 mg/dL (7-18); BUN/Creat Ratio 20.6 RATIO (10-20); Calcium,Total 8.9 mg/dL (8.5-10.1); Chloride 104 mmol/L (98-107); Creatinine, Serum 1.07 mg/dL (0.70-1.30); EST Glomerular Filtration Rate 70 mL/min (>60); Est Glom Filt Rate - Afr Amer 85 mL/min (>60); Globulin 3.5 g/dL (2.2-4.2); Glucose 138 mg/dL (74-106); Potassium 3.9 mmol/L (3.5-5.1); Protein, Total 7.3 g/dL (6.4-8.2); Sodium Level 137 mmol/L (136-145); Thyroid Stim Hormone (TSH) 1.22 uIU/mL (0.358-3.74)
== END ==
PROVIDERS: PCP Family Medicine Geriatric Medicine; Visit Provider Family Medicine Geriatric Medicine
DX: E23.6 Other disorders of pituitary gland (principal); E55.9 Vitamin D deficiency, unspecified; I10 Essential (primary) hypertension
CPT/HCPCS: 36415; 80053; 82306; 84403; 84443; 85025

== ENCOUNTER → 2020-10-21 10:54 | Outpatient (CLI) | payer MEDICARE, OTHER, SELFPAY ==
[2020-04-02 11:50] VITALS: BMI 26.2
[2020-09-09 09:53] VITALS: BMI 26.4
[2020-10-21 12:42] LABS: Absolute Lymphocyte Count 1.11 X10^3/uL (0.83-4.51); Absolute Neutrophil Count 4.9 X10^3/uL (2.0-7.7); Basophil# 0.05 X10^3/uL; Basophil% 0.7 % (0-1); Eosinophil# 0.19 X10^3/uL; Eosinophils% 2.8 % (0-5); Hematocrit 39.9 % (40-54); Hemoglobin 12.6 g/dL (13.0-16.5); Lymphocyte # 1.11 X10^3/ul (4.0); Lymphocyte % 16.4 % (19-41); Mean Corp Hgb Conc 31.6 g/dL (32-36); Mean Corpuscular Hgb 30.1 pg (27.0-32.0); Mean Corpuscular Volume 95.5 fL (80-94); Mean Platelet Vol. 13.7 fl (6.2-12.0); Monocyte# 0.47 X10^3/uL; NRBC Flagged by Analyzer 0 % (0-5); Neutrophil # 4.91 X10^3/uL (2.7-7.7); Neutrophil % 72.7 % (47-70); Platelet Count 169 K/mm3 (150-450); RBC Distribution Width CV 14.3 % (11.6-14.6); RBC Distribution Width SD 49.9 fl (35.1-43.9); Red Blood Count 4.18 M/mm3 (4.6-6.2); White Blood Count 6.8 K/mm3 (4.4-11.0)
[2020-10-21 12:59] LABS: Vitamin D,25 Hydroxy 20.7 ng/mL
[2020-10-21 13:28] LABS: ALB/GLOB Ratio 1.1 RATIO (0.9-2.4); AST(SGOT) 17 U/L (15-37); Alanine Aminotransfer ALT/SGPT 22 U/L (16-61); Albumin, Serum 3.8 g/dL (3.2-5.0); Alkaline Phosphatase 85 U/L (45-117); Anion Gap 6 (5-15); BUN 23 mg/dL (7-18); BUN/Creat Ratio 18.1 RATIO (10-20); Calcium,Total 9.3 mg/dL (8.5-10.1); Chloride 105 mmol/L (98-107); Creatinine, Serum 1.27 mg/dL (0.70-1.30); EST Glomerular Filtration Rate 57 mL/min (>60); Est Glom Filt Rate - Afr Amer 69 mL/min (>60); Globulin 3.4 g/dL (2.2-4.2); Glucose 134 mg/dL (74-106); Protein, Total 7.2 g/dL (6.4-8.2); Sodium Level 138 mmol/L (136-145); Thyroid Stim Hormone (TSH) 1.19 uIU/mL (0.358-3.74)
== END ==
PROVIDERS: PCP Family Medicine Geriatric Medicine; Visit Provider Family Medicine Geriatric Medicine
DX: E23.6 Other disorders of pituitary gland (principal); E55.9 Vitamin D deficiency, unspecified; I10 Essential (primary) hypertension
CPT/HCPCS: 36415; 80053; 82306; 84403; 84443; 85025

== ENCOUNTER → 2020-11-17 13:12 | Outpatient (CLI) | payer MEDICARE, OTHER, SELFPAY ==
[2020-04-02 11:50] VITALS: BMI 26.2
[2020-09-09 09:53] VITALS: BMI 26.4
== END ==
PROVIDERS: PCP Family Medicine Geriatric Medicine; Visit Provider Family Medicine Geriatric Medicine
DX: R06.02 Shortness of breath (principal)
CPT/HCPCS: 87635; U0002

== ENCOUNTER 2020-11-19 00:23 | Inpatient (IN) | payer MEDICARE, OTHER, SELFPAY ==
[2020-04-02 11:50] VITALS: BMI 26.2
[2020-09-09 09:53] VITALS: BMI 26.4
[2020-11-19] VITALS (25 sets, daily range): BP systolic 102–150; BP diastolic 63–95; PULSE 67–104; RESP 16–25; TEMP 36.4–36.8; O2SAT 88–99; BMI 26.2; BMI 25.7
--- NOTE | 2020-11-19 00:24 | ED.RN ---
CALLED FOR EKG PER RN REQUEST, PULLED OLD EKGS FOR
--- NOTE | 2020-11-19 00:31 | RAD_ITS ---
STUDY: X-RAY CHEST REASON FOR EXAM: Male, 85 years old. chest pain TECHNIQUE: AP portable chest. COMPARISON: January 10, 2020. FINDINGS: There are now mild patchy perihilar opacities. No effusions. No pneumothorax. Normal size heart. Normal mediastinum and agapito. Normal visualized pulmonary arteries. Normal visualized aortic arch and descending thoracic aorta. Normal visualized thoracic spine. Normal visualized ribs, clavicles, and shoulders. Cardiac pacemaker left hemithorax. There is no demonstrated abnormality of the visualized soft tissue structures of the upper abdomen. RAD/Chest 1 View (Portable) IMPRESSION: Mild vascular congestion versus bilateral pneumonia. Electronically Signed: Erik Martinez MD at 1:14 EDT , Service support ,
--- NOTE | 2020-11-19 00:31 | EKG12_ITS ---
Test Reason : CP Blood Pressure : / mmHG Vent. Rate : 105 BPM Atrial Rate : 105 BPM P-R Int : 158 ms QRS Dur : 152 ms QT Int : 380 ms P-R-T Axes : 010 -37 126 degrees QTc Int : 502 ms Sinus tachycardia Left axis deviation Left bundle branch block Abnormal ECG Confirmed by ELISABET ROCHA, SERGIO ([id number]), online editor BITA ROBB ([id number]) on 11/20/2020 11:52:32 AM Referred By: CYNDIE Confirmed By:SERGIO BHANDARI MD
[2020-11-19] MEDS: Aspirin 81 MG TAB.CHEW 324 MG PO (00:33)
[2020-11-19 00:42] LABS: Absolute Lymphocyte Count 1.08 X10^3/uL (0.83-4.51); Absolute Neutrophil Count 19.4 X10^3/uL (2.0-7.7); Basophil# 0.02 X10^3/uL; Basophil% 0.1 % (0-1); Hematocrit 42.4 % (40-54); Hemoglobin 13.6 g/dL (13.0-16.5); Lymphocyte # 1.08 X10^3/ul (0.83-4.51); Lymphocyte % 5.1 % (19-41); Mean Corp Hgb Conc 32.1 g/dL (32-36); Mean Corpuscular Hgb 30.4 pg (27.0-32.0); Mean Corpuscular Volume 94.9 fL (80-94); Mean Platelet Vol. 13.6 fl (6.2-12.0); Monocyte# 0.61 X10^3/uL; Monocyte% 2.9 % (0-10); NRBC Flagged by Analyzer 0 % (0-5); Neutrophil % 91.2 % (47-70); Platelet Count 244 K/mm3 (150-450); RBC Distribution Width CV 14.4 % (11.6-14.6); RBC Distribution Width SD 49.8 fl (35.1-43.9); Red Blood Count 4.47 M/mm3 (4.6-6.2); White Blood Count 21.3 K/mm3 (4.4-11.0)
[2020-11-19] MEDS: Morphine 4 MG/ML Syringe IV (00:56)
[2020-11-19] MEDS: Ondansetron 4 MG/2 ML Vial IV (00:56)
[2020-11-19 01:10] LABS: Anion Gap 6 (5-15); BUN 36 mg/dL (7-18); BUN/Creat Ratio 26.7 RATIO (10-20); Calcium,Total 9.3 mg/dL (8.5-10.1); Chloride 104 mmol/L (98-107); Creatinine, Serum 1.35 mg/dL (0.70-1.30); EST Glomerular Filtration Rate 53 mL/min (>60); Est Glom Filt Rate - Afr Amer 65 mL/min (>60); Estimated Creatinine Clearance 42.06 ml/min; Glucose 193 mg/dL (74-106); Potassium 3.8 mmol/L (3.5-5.1); Sodium Level 135 mmol/L (136-145)
--- NOTE | 2020-11-19 01:21 | ED.DCSUM_ITS ---
- ER Visit Summary Date of Service: 11/19/20 Chief Complaint: Chest pain, shortness of breath History of Present Illness: The patient is a 85 M presenting with chest pain and shortness of breath. Patient states he has had chest pain for the last several days. The pain has been intermittent. Yesterday he took a nitro for the first time in awhile which improved his pain. Today he had to take 3 nitro. He states the chest pain comes on when he walks. The pain usually resolves after nitro and about 15 to 20 minutes of rest. He states the pain then returns. He has had associated shortness of breath and diaphoresis. He has had a cough. He denies fever. He was seen by his primary care physician yesterday and was given IM medications. He is unsure what he was given but believes one of them was an antibiotic. He was given second Covid vaccine October 2020. Physical Examination: Vitals are stable. Patient is afebrile. Alert no acute distress. Pulse ox 88% on room air HEENT exam is unremarkable. Neck is supple. Lungs are rhonchi bilaterally. Heart is regular rate and rhythm. Abdomen is soft nontender nondistended. Extremities are unremarkable. Skin is warm and dry. No focal neurologic deficit. Remainder of exam is unremarkable. Emergency Department Course and Treatment: Patient was given aspirin, morphine, Zofran. EKG is sinus tachycardia rate of 105 with left bundle branch block. Chest x-ray read by myself and radiology shows mild vascular congestion versus bilateral pneumonia. CBC shows white count 21.3. Chemistries show sodium 135, BUN 36, creatinine 1.35, glucose 193. Troponin 0.622. Lactic acid normal. BNP 542.1. Covid negative. Blood cultures were sent. Patient was given Rocephin and Zithromax IV. Will discuss with hospitalist for admission. Disposition: Admission Impression: Chest pain, bilateral pneumonia This note was generated with [employer] dictation software. It may contain incorrect words, spelling, and punctuation that were not noted in review of the chart prior to signing ED Disposition - Plan for ED Patient: Referrals: Jacques Pena Chi, MD [Primary Care Provider] -
[2020-11-19 01:35] LABS: Lactic Acid 1.9 mmol/L (0.4-1.9)
[2020-11-19 02:02] LABS: BNP,B-Type NATRIURETIC PEPTIDE 542.7 pg/mL (0-100)
[2020-11-19] MEDS: Ceftriaxone 1 GM/50 ML BAG IV (02:32)
--- NOTE | 2020-11-19 04:15 | EKG12_ITS ---
Test Reason : CHEST PAIN Blood Pressure : / mmHG Vent. Rate : 087 BPM Atrial Rate : 087 BPM P-R Int : 158 ms QRS Dur : 148 ms QT Int : 426 ms P-R-T Axes : 011 -34 125 degrees QTc Int : 512 ms Normal sinus rhythm Left axis deviation Left bundle branch block Abnormal ECG Confirmed by ELISABET ROCHA, SERGIO ([id number]), editorial specialist YAS HARRELL ([id number]) on 11/23/2020 8:55:22 AM Referred By: Confirmed By:SERGIO BHANDARI MD
--- NOTE | 2020-11-19 04:29 | PCM.HP.STD ---
Problem List (1) Atherosclerosis of coronary artery of [place] heart with angina pectoris Status: Chronic (2) 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 infarction Status: Chronic (3) History of non-ST elevation myocardial infarction (NSTEMI) Status: Chronic Comment: 04/2018 (4) History of coronary artery stent placement Status: Chronic Comment: PCI-DOUGLAS-Mid LCx w/ 3.5 x 30 mm Resolute [place] and DOUGLAS- Distal LMT w/ 5.0 x 22 mm Resolute [place] 09/16/2019; PCI-DOUGLAS-LAD 2.0 x 30 mm Resolute [place], 2.5 x 38 mm and 3.0 x 23 mm Xience Soledad 04/27/18; EXK-UVS-Wsw-Distal RCA w/ 4.0 x 20 mm Promus Premier and DOUGLAS-Prox RCA w/ 4.0 x 12 mm Promus Premier 11/18/2014 ;Cutting balloon PTCA of posterior ventricular branch of RCA and PCI-Stent Prox LAD w/ 3.0 x 8 mm Penta Stent and Mid LAD w/ 3.0 x 13 mm Penta Stent 03/05/2002; (5) Ischemic cardiomyopathy Status: Chronic (6) History of implantable cardiac defibrillator (ICD) Status: Chronic (7) Chronic systolic (congestive) heart failure Status: Chronic (8) Nonsustained ventricular tachycardia Status: Chronic (9) Essential (primary) hypertension Status: Chronic (10) HLD (hyperlipidemia) Status: Chronic Qualifiers: Hyperlipidemia type: pure hypercholesterolemia Qualified Code(s): E78.00 - Pure hypercholesterolemia, unspecified; E78.0 - Pure hypercholesterolemia (11) Left carotid artery stenosis Status: Chronic (12) 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 His chest pain is with exertion. His chest pain improved with rest. His chest pain radiated to his left arm and into his throat. Associated with symptoms is diaphoresis and shortness of breath. Of note patient has been coughing for the past 3 to 4 days. Also he reports that chronically he has a postnasal drip and this may be causing his cough. He went to see his PCP Dr. Pena who reportedly gave him 5 shots in his hip. One shot was for pain; another was a muscle relaxant; another shot was antibiotics; the other 2 shots patient could not describe further. He was also started on doxycycline and prednisone. Patient was tested for Covid at Dr. Pena's office. The Covid test was negative. Patient has received 2 doses of Covid vaccination. His reports that patient is also being treated for a rash. Past Medical History Past Medical History (Chronic Problems): Chronic Problems (Last Reviewed 11/19/20 @ 05:[address] Jose Orozco MD) Atherosclerosis of coronary artery of [place] heart with angina pectoris (Chronic) 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) History of non-ST elevation myocardial infarction (NSTEMI) (Chronic 08/13/19) 04/2018 History of coronary artery stent placement (Chronic 09/16/19) PCI-DOUGLAS-Mid LCx w/ 3.5 x 30 mm Resolute Victoriano and DOUGLAS- Distal LMT w/ 5.0 x 22 mm Resolute [place] 09/16/2019; PCI-DOUGLAS-LAD 2.0 x 30 mm Resolute [place], 2.5 x 38 mm and 3.0 x 23 mm Xience Soledad 04/27/18; AVJ-PJC-Qeb-Distal RCA w/ 4.0 x 20 mm Promus Premier and DOUGLAS-Prox RCA w/ 4.0 x 12 mm Promus Premier 11/18/2014 ;Cutting balloon PTCA of posterior ventricular branch of RCA and PCI-Stent Prox LAD w/ 3.0 x 8 mm Penta Stent and Mid LAD w/ 3.0 x 13 mm Penta Stent 03/05/2002; Ischemic cardiomyopathy (Chronic) History of implantable cardiac defibrillator (ICD) (Chronic 05/17/10) Chronic systolic (congestive) heart failure (Chronic) Nonsustained ventricular tachycardia (Chronic) Essential (primary) hypertension (Chronic) HLD (hyperlipidemia) (Chronic) Left carotid artery stenosis (Chronic) 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) Medical History: Medical History (Last Reviewed 11/19/20 @ 05:[address] Jose Orozco MD) Atherosclerosis of coronary artery of [place] heart with angina pectoris (Chronic) I25.119 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) I25.2 History of non-ST elevation myocardial infarction (NSTEMI) (Chronic) Onset Date: 08/13/19 I25.2 04/2018 Ischemic cardiomyopathy (Chronic) I25.5 Chronic systolic (congestive) heart failure (Chronic) I50.22 Nonsustained ventricular tachycardia (Chronic) I47.2 Essential (primary) hypertension (Chronic) I10 HLD (hyperlipidemia) (Chronic) E78.5 Left carotid artery stenosis (Chronic) I65.22 DDD (degenerative disc disease) GERD (gastroesophageal reflux disease) K21.9 Hiatal hernia K44.9 Polycythemia D75.1 Segmental and somatic dysfunction of pelvic region M99.05 Segmental and somatic dysfunction of thoracic region M99.02 Carotid artery disease (Inactive) I77.9 Allergies hydrochlorothiazide Allergy (Severe, Verified 09/09/20 10:08) Severe itching rash promethazine [From Phenergan] Allergy (Verified 11/19/20 00:28) Other ranolazine [From Ranexa] Adverse Reaction (Severe, Verified 09/09/20 10:08) Rash omeprazole Adverse Reaction (Verified 09/09/20 10:08) Unknown Phenothiazines Adverse Reaction (Verified 09/09/20 10:08) Unknown Nsxrglu-Wyn-Flm Reductase Inhibitor Adverse Reaction (Verified 09/09/20 10:08) myalgias PHENEGRANZOLE Adverse Reaction (Uncoded 09/09/20 10:08) Unknown Home Medications: Ambulatory Orders Medication Instructions Recorded Aspirin E.C. [Ecotrin] 81 mg PO DAILY@0800 07/11/13 Pantoprazole Sodium [Protonix] 40 mg PO DAILY 10/29/16 Clopidogrel Bisulfate [Plavix] 75 mg PO DAILY 04/20/18 metoprolol succinate 100 mg 50 mg PO DAILY #90 tab 01/28/20 tablet,extended release 24 hr testosterone 20.25 mg/1.25 gram 1 pump TOPICAL DAILY #150 g 04/06/20 (1.62 %) transdermal gel pump nitroglycerin 0.4 mg sublingual 0.4 mg SUBLINGUAL Q5-15M PRN #25 07/22/20 tablet tab amlodipine 2.5 mg tablet 2.5 mg PO DAILY #90 tab 09/10/20 Doxycycline Hyclate 100 mg PO BID 11/19/20 Prednisone 40 mg PO DAILY 11/19/20 Surgical History: Surgical History (Last Reviewed 11/19/20 @ 05:[address] Jose Orozco MD) History of coronary artery stent placement (Chronic) Onset Date: 09/16/19 Z95.5 PCI-DUOGLAS-Mid LCx w/ 3.5 x 30 mm Resolute [place] and DOUGLAS- Distal LMT w/ 5.0 x 22 mm Resolute Victoriano 09/16/2019; PCI-DOUGLAS-LAD 2.0 x 30 mm Resolute Victoriano, 2.5 x 38 mm and 3.0 x 23 mm Xience Soledad 04/27/18; WTW-EJV-Xpz-Distal RCA w/ 4.0 x 20 mm Promus Premier and DOUGLAS-Prox RCA w/ 4.0 x 12 mm Promus Premier 11/18/2014 ;Cutting balloon PTCA of posterior ventricular branch of RCA and PCI-Stent Prox LAD w/ 3.0 x 8 mm Penta Stent and Mid LAD w/ 3.0 x 13 mm Penta Stent 03/05/2002; History of implantable cardiac defibrillator (ICD) (Chronic) Onset Date: 05/17/10 History of electrophysiologic study Onset Date: 2009 Z98.890 09/11/2002 @ [facility] per Dr. Holt; and 05/19/[address] Madrigal [facility] History of intraocular lens implant Z96.1 History of left heart catheterization Onset Date: 08/15/19 Z98.890 03/05/2002;08/20/2002; 04/2004; May 2010; 11/18/2014, 04/23/2018 Surgical History: angioplasty, cataract, herniorrhaphy, TURP, - - AICD placement Psychiatric History: No pertinent psych hx Smoking Status: Never smoker - *Family History Maternal Family History: Family History (Last Reviewed 11/19/20 @ 05:[address] Jose Orozco MD) Father CAD (coronary artery disease) Myocardial infarction Sudden cardiac Mother Diabetes History Items: Heart Disease Paternal Family History: Family History (Last Reviewed 11/19/20 @ 05:[address] Jose Orozco MD) Father CAD (coronary artery disease) Myocardial infarction Sudden cardiac Mother Diabetes History Items: Heart Disease Review of Systems Constitutional: Denies: Chills, Fever, Weight Change HEENT: Denies: Head Aches, Sinus Congestion, Sinus Drainage Cardiovascular: Reports: Chest Pain. Denies: Palpitations Respiratory: Reports: Cough, Shortness of Breath Gastrointestinal: Denies: Abdominal Pain, Nausea, Vomiting Genitourinary: Denies: Dysuria Musculoskeletal: Denies: Joint Pain, Joint Tenderness Skin: Reports: Rash. Denies: Wounds Neurological: Denies: Numbness, Tingling, Focal weakness Psychiatric: Denies: Anxiety, Depression, Homicidal Ideations, Suicidal Ideations Hematologic/ Lymphatic: Denies: Easy Bruising, Easy Bleeding VTE Information - Inpt Only VTE Present on Admission: No VTE Mechan Device Prophylaxis: None VTE Pharm Prophylaxis ordered?: No Reason prophylaxis not ordered:: Treatment Not Indicated - Given therapeutic dose of Lovenox x 1. Patient Problems: Active and Suspected Problems (Last Reviewed 11/19/20 @ 05:[address] Jose Orozco MD) Chest pain (Acute) - Physical Exam Vitals/I&O's: Vital Signs Temp Pulse Resp BP Pulse Ox 97.9 F 76 18 129/75 H 95 11/19/20 03:15 11/19/20 03:15 11/19/20 03:15 11/19/20 03:15 11/19/20 03:15 Oxygen Flow Rate (L/min) 4 Oxygen Delivery Method Nasal Cannula Weight: 81.4 kg Body Mass Index (BMI) 25.7 Intake and Output for Last 24 Hours 11/17/20 11/18/20 11/19/20 23:59 23:59 23:59 Intake Total 50 / 50 Balance 50 / 50 General: Alert, Oriented x3, Cooperative HEENT: Atraumatic, PERRLA, EOMI, Normocephalic Neck: Supple, Trachea Midline Lungs: Rales, Wheezes Cardiovascular: Regular rate, Normal S1, Normal S2, No murmurs Abdomen: Bowel Sounds Present, Soft, Non Tender Extremities: No edema, Capillary Refill Less than 3 Seconds Skin: No rashes, No breakdown, Rash Present - maculo-papular rash. Musculoskeletal: No Tenderness to Palpation of Joints or Extremities Neurological: Cranial nerves II-XII grossly intact Psych/Mental Status: Normal Affect, Appropriate Microbiology Past 72 Hours 11/19/20 01:22 Nasal Secretion SARS-CoV-2 Antigen (Rapid) - Final Laboratory Results 11/19/20 00:29: WBC 21.3 H, RBC 4.47 L, Hgb 13.6, Hct 42.4, MCV 94.9 H, MCH 30.4, MCHC 32.1, RDW Std Deviation 49.8 H, RDW Coeff of Dane 14.4, Plt Count 244, MPV 13.6 H, Immature Gran % (Auto) 0.700, Neut % (Auto) 91.2 H, Lymph % (Auto) 5.1 L, Bland % (Auto) 2.9, Eos % (Auto) 0.0, Baso % (Auto) 0.1, Absolute Neuts (auto) 19.4 H, Absolute Lymphs (auto) 1.08, Nucleated RBC % 0 11/19/20 00:29: Sodium 135 L, Potassium 3.8, Chloride 104, Carbon Dioxide 25.0, Anion Gap 6, BUN 36 H, Creatinine 1.35 H, Estim Creat Clear Calc 42.06, Est GFR (MDRD) Af Amer 65, Est GFR (MDRD) Non-Af 53 L, BUN/Creatinine Ratio 26.7 H, Glucose 193 H, Calcium 9.3, Troponin I 0.622 H* 11/19/20 00:29: B-Natriuretic Peptide 542.7 H 11/19/20 01:05: Lactic Acid 1.9 Current Medications Acetaminophen (Acetaminophen 325 Mg Tablet) 650 mg PO Q6H PRN PRN PRN Reason: Pain Score 1-10/Temp > 100.7 F Amlodipine Besylate (Amlodipine 2.5 Mg Tablet) 2.5 mg PO DAILY [facility] Aspirin (Aspirin E.C. 81 Mg Tablet) 81 mg PO DAILY@0800 [facility] Clopidogrel Bisulfate (Clopidogrel Bisulfate 75 Mg Tablet) 75 mg PO DAILY [facility] Enoxaparin Sodium (Enoxaparin 100 Mg/Ml Syringe) 80 mg 1 mg/kg (80 mg) SC X1 ONE Stop: 11/19/20 04:16 Furosemide (Furosemide 40 Mg/4 Ml Vial) 40 mg IV X1 ONE Stop: 11/19/20 04:27 Furosemide (Furosemide 40 Mg/4 Ml Vial) 40 mg IV BID@1000,1800 [facility] Melatonin (Melatonin 3 Mg Tablet) 3 mg PO QHS PRN PRN PRN Reason: INSOMNIA Metoprolol Succinate (Metoprolol(Xl)Succ 100 Mg Tablet) 50 mg PO DAILY [facility] Morphine Sulfate (Morphine 2 Mg/Ml Syringe) 2 mg IV Q3H PRN PRN PRN Reason: Pain Score 6-10 Nitroglycerin (Nitroglycerin (Inpatient Use) 0.4 Mg Tab.Subl) 0.4 mg SL Q5M PRN PRN Reason: CARDIAC/CHEST PAIN Ondansetron HCl (Ondansetron 4 Mg/2 Ml Vial) 4 mg IV Q8H PRN PRN PRN Reason: NAUSEA/VOMITING Pantoprazole Sodium (Pantoprazole Sodium 40 Mg Tablet) 40 mg PO DAILY [facility] Potassium Chloride (Potassium Chloride Oral Tablet 20 Meq) 40 meq PO DAILYCM [facility] Sodium Chloride (0.9% Saline Lock 10 Ml Syringe) 10 - 40 ml IV UD PRN PRN Reason: SALINE FLUSH Assessment/Plan All Active Problems (Last Reviewed 11/19/20 @ 05:[address] Jose Orozco MD) Chest pain (Acute) Atypical chest pain (Resolved) Chest pain (Resolved) Elevated troponin I level (Resolved) The patient is a 85 year old M with a significant history of ischemic cardiomyopathy (ejection fraction 25%); ICD GERD; hiatal hernia who presents emergency department with 2 to 3 days history of chest pain; also with cough; chronic postnasal drip was found to have elevated troponin: Leukocytosis; mild vascular congestion; and elevated BNP. Chest Pain Troponin of 0.622. His troponin on 01/10/2020 was 0.091-0.095. Patient with a history of NSTEMI and with several coronary stents. EKG tracing independently reviewed showed left bundle branch block. Previous EKG was also reviewed. Previous EKG showed left bundle branch block. Cardiac cath on 01/10/2020: Triple-vessel disease with stents patent in the left main, left circumflex artery, proximal and mid right coronary artery. Disease noted in the left anterior descending artery with total occlusion mid segment and moderate disease in the previously placed stent. Diagonal vessel with good flow. Severe low ventricular systolic dysfunction status post ICD implantation. Medical therapy was recommended at that time. Also left heart assessments showed ejection fraction 25%, depressed left ventricular systolic function. Aspirin and Plavix continued Trend troponin Consult cardiology. N.p.o. for now. Acute excerbation of heart failure with reduced ejection fraction With rales and wheezing. BNP of 542.7 Review of ED labs showed leukocytosis. Patient is on prednisone. He denies fever or chills. Radiologist impression of chest x-ray: Mild vascular congestion versus bilateral pneumonia. Actual chest x-ray image was independently reviewed. Received ceftriaxone and azithromycin at emergency department. No further antibiotics ordered at this time. We will check strep pneumonia; and Legionella urine antigen and procalcitonin to guide further antibiotic therapy. Doxycycline continued. Mucinex ordered. Per Cardiology notes on 09/09/2020; patient has been intolerant to Ranexa and Imdur. Also patient did not want to resume Entresto or diuretics. We will give Lasix IV. Potassium supplementation ordered. Metoprolol continued Daily weight. Strict intake and output. Fluid restriction of 1500 ml/day Dermatitis Doxycycline and prednisone continued. DVT prophylaxis. Therapeutic dose of Lovenox x1 given for Chest Pain Inpatient E&M: 34086 Init Hosp L3
[2020-11-19] MEDS: Enoxaparin 80 MG/0.8 ML Syringe SC (05:01)
[2020-11-19] MEDS: Furosemide 40 MG/4 ML Vial IV ×2 (05:01→18:15)
[2020-11-19] MEDS: 0.9% Saline Lock 10 ML Syringe IV ×2 (05:02→18:15)
[2020-11-19 05:06] LABS: Absolute Lymphocyte Count 0.61 X10^3/uL (0.83-4.51); Absolute Neutrophil Count 20.6 X10^3/uL (2.0-7.7); Basophil# 0.02 X10^3/uL; Basophil% 0.1 % (0-1); Eosinophil# 0.01 X10^3/uL; Hematocrit 40.7 % (40-54); Lymphocyte # 0.61 X10^3/ul (0.83-4.51); Lymphocyte % 2.8 % (19-41); Mean Corp Hgb Conc 31.9 g/dL (32-36); Mean Corpuscular Hgb 30.2 pg (27.0-32.0); Mean Corpuscular Volume 94.4 fL (80-94); Mean Platelet Vol. 13.6 fl (6.2-12.0); Monocyte% 3.2 % (0-10); NRBC Flagged by Analyzer 0 % (0-5); Neutrophil # 20.63 X10^3/uL (2.7-7.7); POSITIVE DIFFERENTIAL YES; POSITIVE MORPHOLOGY YES; Platelet Count 204 K/mm3 (150-450); RBC Distribution Width CV 14.4 % (11.6-14.6); RBC Distribution Width SD 50.4 fl (35.1-43.9); Red Blood Count 4.31 M/mm3 (4.6-6.2); White Blood Count 22.2 K/mm3 (4.4-11.0)
[2020-11-19 05:07] LABS: Differential Indicated SCAN CRITERIA MET
[2020-11-19 05:19] LABS: Differential Comment SCANNED; Platelet Morphology LARGE
[2020-11-19 05:22] LABS: Anion Gap 5 (5-15); BUN 36 mg/dL (7-18); BUN/Creat Ratio 29.8 RATIO (10-20); Calcium,Total 9.1 mg/dL (8.5-10.1); Chloride 106 mmol/L (98-107); Creatinine, Serum 1.21 mg/dL (0.70-1.30); EST Glomerular Filtration Rate 61 mL/min (>60); Est Glom Filt Rate - Afr Amer 73 mL/min (>60); Estimated Creatinine Clearance 46.92 ml/min; Glucose 180 mg/dL (74-106); Potassium 4.3 mmol/L (3.5-5.1); Sodium Level 136 mmol/L (136-145)
[2020-11-19] MEDS: amLODIPine 2.5 MG Tablet PO (06:10)
[2020-11-19] MEDS: Clopidogrel Bisulfate 75 MG Tablet PO (06:10)
[2020-11-19] MEDS: Aspirin E.C. 81 MG Tablet PO (06:10)
[2020-11-19] MEDS: Metoprolol(XL)Succ 50 MG Tablet PO ×2 (06:10→10:04)
--- NOTE | 2020-11-19 06:34 | SUR.PREOP ---
This SPEECH THERAPIST [employer]VENTION was told at 0545 by the charge nurse on PCU that the pt was going for a heart cath this AM. Pt left and right groin shaved as well as right radial wrist. Only 1 pre-op chlorahexadine wash was given to the pt as we did not get the heart cath order until this AM. Pt gown and bed linen was changed after pt was prepped. NPO sign hanging on pt door.
--- NOTE | 2020-11-19 07:45 | NURSING ---
called report to shazia WALLER in cardiac cath lab technologist
--- NOTE | 2020-11-19 08:05 | PCM.CONS.C ---
Reason for Consult Date of Consultation: 11/19/20 Reason for Consultation: Chest discomfort History of Present Illness: The patient is a 85 year old M who presents with recent onset chest discomfort as well as shortness of breath. He says that he has had to take nitroglycerin over the last few days. He also feels that his energy level is diminished. He presented to the emergency room was evaluated and cardiac enzymes obtained and he was noted to have an abnormal troponin enzyme. As you know he is a gentleman He has a history of coronary artery disease with stenting and angioplasty to his RCA, LAD and circumflex. He also has a history of ischemic cardiomyopathy with prophylactic ICD placed. In 2015 he had a heart catheterization which demonstrated a long area of 95% stenosis of the distal LAD, RCA was previously stented and patent, circumflex patent. Viability demonstrated no viability in the anterior anteroseptal and apical varghese medical management was recommended. Patient had a stress test in October 2016 which demonstrated previous extensive anterior apical infarct, basal inferior infarct, inferolateral infarct with no ischemia. He had a NSTEMI in 04/2018 and underwent angioplasty and stenting of the proximal mid and distal left anterior descending artery. He had a 2.5 x 38 mm X science stent followed by 3.0 x 23 mm stent and a 2.0 x 30 mm stent. The circumflex artery was apparently left untouched. He presented again in September 2019 with shortness of breath and a non-ST elevation myocardial infarction. Cardiac catheterization demonstrated disease noted involving the proximal left circumflex artery. Left anterior descending artery was also severely diseased but had previously shown evidence of non-viability in the LAD territory. He underwent successful PCI of a 70% diffuse mid left circumflex stenosis with a 3.5 x 30 mm resolute drug-eluting gabrielle stent. There was also successful PCI of the distal left main coronary artery of approximately 70% with a 5.0 x 22 mm resolute Gabrielle stent. In January of 2020, He underwent a heart catheterization which demonstrated triple-vessel disease, stents patent in the left main, circumflex and proximal mid RCA. Distal disease was noted in his LAD with total occlusion of mid segment and moderate disease in previously placed stents. Medical therapy was recommended. And his sotalol was discontinued because of his complaints of significant fatigue and metoprolol was added. He was also continued on his Plavix as well as his aspirin and isosorbide. He sometimes does not tolerate isosorbide because of headaches. He did not tolerate Ranexa. He presents this time with chest discomfort once again. Past Medical History Allergies/Adverse Reactions: Allergies hydrochlorothiazide Allergy (Severe, Verified 09/09/20 10:08) Severe itching rash promethazine [From Phenergan] Allergy (Verified 11/19/20 00:28) Other ranolazine [From Ranexa] Adverse Reaction (Severe, Verified 09/09/20 10:08) Rash omeprazole Adverse Reaction (Verified 09/09/20 10:08) Unknown Phenothiazines Adverse Reaction (Verified 09/09/20 10:08) Unknown Wsqkhns-Kye-Ukl Reductase Inhibitor Adverse Reaction (Verified 09/09/20 10:08) myalgias PHENEGRANZOLE Adverse Reaction (Uncoded 09/09/20 10:08) Unknown Home Medications: Ambulatory Orders Medication Instructions Recorded Aspirin E.C. [Ecotrin] 81 mg PO DAILY@0800 07/11/13 Pantoprazole Sodium [Protonix] 40 mg PO DAILY 10/29/16 Clopidogrel Bisulfate [Plavix] 75 mg PO DAILY 04/20/18 metoprolol succinate 100 mg 50 mg PO DAILY #90 tab 01/28/20 tablet,extended release 24 hr testosterone 20.25 mg/1.25 gram 1 pump TOPICAL DAILY #150 g 04/06/20 (1.62 %) transdermal gel pump nitroglycerin 0.4 mg sublingual 0.4 mg SUBLINGUAL Q5-15M PRN #25 07/22/20 tablet tab amlodipine 2.5 mg tablet 2.5 mg PO DAILY #90 tab 09/10/20 Doxycycline Hyclate 100 mg PO BID 11/19/20 Prednisone 40 mg PO DAILY 11/19/20 Past Medical History (Chronic Problems): Chronic Problems (Last Reviewed 11/19/20 @ 05:[address] 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) History of non-ST elevation myocardial infarction (NSTEMI) (Chronic 08/13/19) 04/2018 History of coronary artery stent placement (Chronic 09/16/19) PCI-DOUGLAS-Mid LCx w/ 3.5 x 30 mm Resolute [place] and DOUGLAS- Distal LMT w/ 5.0 x 22 mm Resolute Gabrielle 09/16/2019; PCI-DOUGLAS-LAD 2.0 x 30 mm Resolute [place], 2.5 x 38 mm and 3.0 x 23 mm Xience Soledad 04/27/18; EGX-ZCO-Cum-Distal RCA w/ 4.0 x 20 mm Promus Premier and DOUGLAS-Prox RCA w/ 4.0 x 12 mm Promus Premier 11/18/2014 ;Cutting balloon PTCA of posterior ventricular branch of RCA and PCI-Stent Prox LAD w/ 3.0 x 8 mm Penta Stent and Mid LAD w/ 3.0 x 13 mm Penta Stent 03/05/2002; Ischemic cardiomyopathy (Chronic) History of implantable cardiac defibrillator (ICD) (Chronic 05/17/10) Chronic systolic (congestive) heart failure (Chronic) Nonsustained ventricular tachycardia (Chronic) Essential (primary) hypertension (Chronic) HLD (hyperlipidemia) (Chronic) Left carotid artery stenosis (Chronic) 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 Jose Orozco MD) Father CAD (coronary artery disease) Myocardial infarction Sudden cardiac Mother Diabetes History Items: Heart Disease Paternal Family History: Family History (Last Reviewed 11/19/20 @ 05:[address] Jose Orozco MD) Father CAD (coronary artery disease) Myocardial infarction Sudden cardiac Mother Diabetes History Items: Heart Disease Smoking Status: Never smoker Alcohol: None Drugs: None Review of Systems - Review of Systems General: Denies: Fever, Night Sweats, Fatigue HEENT: Denies: Vision Change Cardiovascular: Reports: Chest Discomfort, Chest Discomfort with Exertion. Denies: Shortness of Breath, Orthopnea, PND, Peripheral Edema, Palpitations, Lightheadedness, Dizziness, Near Syncope, Syncope Respiratory: Denies: Cough, Sputum Production, Hemoptysis Gastrointestinal: Denies: Hematemesis, Hematochezia, Melena Genitourinary: Denies: Dysuria, Hematuria Skin: Denies: Rash Neurological: Denies: Dizziness Psychiatric: Denies: Anxiety Endocrine: Denies: Heat Intolerance Hematologic/ Lymphatic: Denies: Anemia Subjectve: Pleasant gentleman in no distress at this time Objective: Vital Signs Temp Pulse Resp BP Pulse Ox 97.7 F L 74 16 121/70 H 93 11/19/20 04:20 11/19/20 07:00 11/19/20 04:20 11/19/20 04:20 11/19/20 04:45 Oxygen Flow Rate (L/min) 3 Oxygen Delivery Method Nasal Cannula Weight: 179 lb 7.3 oz Body Mass Index (BMI) 25.7 Intake and Output for Last 24 Hours 11/17/20 11/18/20 11/19/20 23:59 23:59 23:59 Intake Total 305 / 305 Output Total 0 / 0 Balance 305 / 305 General: Awake, Alert, Oriented x 3 HEENT: PERRL, EOMI, Sclera Non Icteric Neck: Supple, Good ROM, No Lymph Node Enlargement Lungs: Clear to auscultation Cardiovascular: Regular Rhythm, Normal S1, Normal S2, No Murmurs, No Rubs, No Gallops Vascular: No Carotid Bruits, Normal Femoral Pulses, Normal Radial Pulses, Normal Dorsalis Pedal Pulse, Normal Posterior Tibial Pulses Abdomen: Bowel Sounds Present, Soft, Non Tender, No HSM, No Organomegaly Extremities: No Cyanosis, No Clubbing, No edema Neurological: No Focal Motor or Sensory Deficit Psych/Mental Status: Appropriate 11/19/20 00:29: WBC 21.3 H, RBC 4.47 L, Hgb 13.6, Hct 42.4, MCV 94.9 H, MCH 30.4, MCHC 32.1, Plt Count 244, MPV 13.6 H, Immature Gran % (Auto) 0.700, Neut % (Auto) 91.2 H, Lymph % (Auto) 5.1 L, [place] % (Auto) 2.9, Eos % (Auto) 0.0, Baso % (Auto) 0.1, Absolute Neuts (auto) 19.4 H, Nucleated RBC % 0 11/19/20 00:29: Sodium 135 L, Potassium 3.8, Chloride 104, Carbon Dioxide 25.0, Anion Gap 6, BUN 36 H, Creatinine 1.35 H, Est GFR (MDRD) Af Amer 65, Est GFR (MDRD) Non-Af 53 L, BUN/Creatinine Ratio 26.7 H, Glucose 193 H, Calcium 9.3, Troponin I 0.622 H* 11/19/20 00:29: B-Natriuretic Peptide 542.7 H 11/19/20 01:05: Lactic Acid 1.9 11/19/20 05:00: WBC 22.2 H, RBC 4.31 L, Hgb 13.0, Hct 40.7, MCV 94.4 H, MCH 30.2, MCHC 31.9 L, Plt Count 204, MPV 13.6 H, Immature Gran % (Auto) 0.900, Neut % (Auto) 93.0 H, Lymph % (Auto) 2.8 L, Caswell % (Auto) 3.2, Eos % (Auto) 0.0, Baso % (Auto) 0.1, Absolute Neuts (auto) 20.6 H, Nucleated RBC % 0 11/19/20 05:00: Sodium 136, Potassium 4.3, Chloride 106, Carbon Dioxide 25.0, Anion Gap 5, BUN 36 H, Creatinine 1.21, Est GFR (MDRD) Af Amer 73, Est GFR (MDRD) Non-Af 61, BUN/Creatinine Ratio 29.8 H, Glucose 180 H, Calcium 9.1 11/19/20 05:00: Troponin I 1.450 H* Rhythm: EKG: ECHO: Stress Test: Cardiac Cath: PCI: CT Surgery: Holter monitor: EPS: PPM: CXR: Chest CT Scan: Assessment/Plan 1. Atherosclerosis of coronary artery of [place] heart with angina pectoris I25.119 Plan Patient is having symptoms of chest discomfort where he is needing to use his nitroglycerin. I did review his heart catheterization with him. He has been intolerant to Ranexa and isosorbide in the past. He continues to have chest discomfort. I would recommend that we proceed with a left heart catheterization. The risk benefits alternatives were explained to him he understands and agrees to proceed. His cardiac catheterization today demonstrated the following: Left main stent noted to be patent. Left anterior descending artery which is subtotally occluded. Left circumflex artery with patent stent with moderate in-stent stenosis. Dominant right coronary artery with previously placed stent which is patent with no high-grade stenosis. The ostium of the PDA has a 40 to 50% stenosis. Based on the above angiographic findings he will be continued on medical therapy. 2. Ischemic cardiomyopathy I25.5 Plan Unfortunately patient did not feel that the Entresto was helpful for him. He had discontinued this. We will continue to manage him with his diuretics as well.. 3. Essential hypertension I10 Plan Blood pressure is controlled however I am going to start him on amlodipine. We will continue to monitor blood pressure closely. 4. Pure hypercholesterolemia E78.00 Plan Patient has not been able to tolerate statins due to myalgias. These are being managed by his primary care doctor. 5. History of implantable cardiac defibrillator (ICD) Z95.810 Plan ICD is functioning appropriately. We will continue to monitor with routine scheduled ICD interrogations. Patient has not had any discharges from their device. Thank you for allowing me to participate in the care of your patient. Please don't hesitate to call if any issues arise.
--- NOTE | 2020-11-19 09:01 | CASEMGMT ---
Patient has MCR A/B and can go to tertiary facility of choice.
--- NOTE | 2020-11-19 10:00 | CASEMGMT ---
RN CM Face to Face with patient for initial transition planning/care coordination assessment. RN CM introduced self and role at [facility]. Patient lying in bed, alert and oriented. Patient willing to participate in assessment and is able to answer all questions appropriately. Care providers, pharmacy, and demographics verified. Patient wishes to discharge home, denies need for home health at this time. Patient states he has no further needs or concerns at this time. CM to follow for discharge planning needs that may arise. PCP: Jean Specialists: Howard gallery or museum curator Preferred Pharmacy: [facility] Insurance: [facility], [employer] Prescription Benefit: yes Living Will/HPOA: yes, Mary Solis LNOK: Living Arrangements: Patient lives with in a single story home with stair lift. Patient states he is independent at home. Transportation: self/ DME/HHC: Patient states he has shower chair, raised toilet, cane, and stair lift. Patient has been to TCU in the past. Disposition Plan: Patient to discharge home with family support and follow-up plans in place. Yuliya BELTRE, RN, CM
[2020-11-19] MEDS: Potassium Chloride Oral Tablet 20 MEQ 40 MEQ PO (10:02)
[2020-11-19] MEDS: guaiFENesin 600 MG Tablet PO ×2 (10:03→21:05)
[2020-11-19] MEDS: predniSONE 10 MG Tablet 30 MG PO (10:03)
[2020-11-19] MEDS: Pantoprazole Sodium 40 MG Tablet PO (10:03)
[2020-11-19] MEDS: Doxycycline 100 MG CAPSULE PO ×2 (10:03→21:05)
[2020-11-19] MEDS: Isosorbide DN 10 MG Tablet PO ×2 (13:21→21:05)
--- NOTE | 2020-11-19 17:04 | PCM.HOSP.N ---
Hospitalist Note Will is an 85-year-old male who was admitted to [facility] on 11/19/2020 after presenting with chest pain. He indicated that he had to take some nitroglycerin over the past few days and that he felt his energy level was diminished. Upon presentation in the emergency department troponin was obtained and his cardiac enzymes were abnormal. Given his significant coronary history cardiology was consulted and the patient was taken to the Nursing Assistant for further evaluation of his coronaries on 11/19/2020. His left heart cath revealed a patent left main stent, a subtotal occluded LAD, a left circumflex with a patent stent and moderate in-stent stenosis, a dominant right coronary with a patent stent, and the ostium of the PDA with 40 to 50% stenosis. When compared to previous left heart cath his coronary disease is stable and continued medical therapy has been recommended by cardiology. His metoprolol has been increased to 100 mg daily by cardiology. He was also noted to be in heart failure on admission. And has been diuresed with Lasix. His BNP on admission was 542.7 which is the highest he has had of any obtained here at this facility. He was noted to have mild PILAR on admission and his creatinine is now back to baseline despite diuretics indicating this was likely related to pump failure and decreased perfusion of the kidneys. He has not been on regular Lasix at home but as discussed with him may need to be discharged on Lasix. He remains on oxygen at 2 L nasal cannula with oxygen saturation at 94% most recently. There is a possibility that he may be able to be discharged home tomorrow depending on his response to continued diuresis and his cardiac symptoms. Diagnoses Acute hypoxic respiratory failure secondary to decompensated HFrEF CAD with angina pectoris Ischemic cardiomyopathy Hypertension Hyperlipidemia GERD History of nonsustained VT Left carotid artery stenosis Hypogonadism Degenerative disc disease Hiatal hernia Leukocytosis -Suspect related to steroids Troponin elevation Dermatitis
[2020-11-19 18:52] LABS: Absolute Lymphocyte Count 0.48 X10^3/uL (0.83-4.51); Absolute Neutrophil Count 12.7 X10^3/uL (2.0-7.7); Basophil# 0.01 X10^3/uL; Basophil% 0.1 % (0-1); Hemoglobin 12.3 g/dL (13.0-16.5); Lymphocyte # 0.48 X10^3/ul (0.83-4.51); Lymphocyte % 3.5 % (19-41); Mean Corp Hgb Conc 31.5 g/dL (32-36); Mean Corpuscular Hgb 30.1 pg (27.0-32.0); Mean Corpuscular Volume 95.4 fL (80-94); Mean Platelet Vol. 13.8 fl (6.2-12.0); Monocyte# 0.42 X10^3/uL; Monocyte% 3.1 % (0-10); NRBC Flagged by Analyzer 0 % (0-5); Neutrophil # 12.69 X10^3/uL (2.7-7.7); Neutrophil % 92.6 % (47-70); POSITIVE DIFFERENTIAL YES; Platelet Count 210 K/mm3 (150-450); RBC Distribution Width CV 14.8 % (11.6-14.6); RBC Distribution Width SD 51.6 fl (35.1-43.9); Red Blood Count 4.09 M/mm3 (4.6-6.2); White Blood Count 13.7 K/mm3 (4.4-11.0)
[2020-11-19 18:59] LABS: Differential Indicated SCAN CRITERIA MET
[2020-11-19 19:12] LABS: Anion Gap 4 (5-15); BUN 39 mg/dL (7-18); BUN/Creat Ratio 27.9 RATIO (10-20); Calcium,Total 9.1 mg/dL (8.5-10.1); Chloride 105 mmol/L (98-107); EST Glomerular Filtration Rate 51 mL/min (>60); Est Glom Filt Rate - Afr Amer 62 mL/min (>60); Estimated Creatinine Clearance 40.56 ml/min; Glucose 182 mg/dL (74-106); Potassium 4.4 mmol/L (3.5-5.1); Sodium Level 136 mmol/L (136-145)
[2020-11-19 19:16] LABS: Anisocytosis RARE; Macrocytosis RARE; Platelet Estimate ADEQUATE (ADEQ); Red Cell Morphology N CHROM NORMAL (NORM C&C)
[2020-11-19] MEDS: MELATONIN 3 MG TABLET PO (23:09)
[2020-11-20] VITALS (9 sets, daily range): BP systolic 109–128; BP diastolic 53–76; PULSE 66–76; RESP 16–18; TEMP 36.4–37.1; O2SAT 88–97
--- NOTE | 2020-11-20 03:23 | NURSING ---
Pt taken off 02 for 15 mins. Po 88% on ra.
--- NOTE | 2020-11-20 03:24 | NURSING ---
02 at 2lnc reappilied
[2020-11-20] MEDS: Isosorbide DN 10 MG Tablet PO ×2 (05:23→13:48)
[2020-11-20] MEDS: Doxycycline 100 MG CAPSULE PO (09:27)
[2020-11-20] MEDS: Clopidogrel Bisulfate 75 MG Tablet PO (09:27)
[2020-11-20] MEDS: Pantoprazole Sodium 40 MG Tablet PO (09:27)
[2020-11-20] MEDS: guaiFENesin 600 MG Tablet PO (09:28)
[2020-11-20] MEDS: Potassium Chloride Oral Tablet 20 MEQ 40 MEQ PO (09:28)
[2020-11-20] MEDS: predniSONE 10 MG Tablet 30 MG PO (09:28)
[2020-11-20] MEDS: Metoprolol(XL)Succ 100 MG Tablet PO (09:28)
[2020-11-20] MEDS: Aspirin E.C. 81 MG Tablet PO (09:28)
[2020-11-20] MEDS: amLODIPine 2.5 MG Tablet PO (09:28)
--- NOTE | 2020-11-20 10:05 | CL.D_ITS ---
Patient Name: FLEX GARCIA Study Date: 11/19/2020 Performing: Roque Lawrence MD Ht: 70 inches 178 cm : 1935 Wt: 178.8 lbs 81 kg Age: 85 Gender: male BSA: 1.99 PROCEDURE(S) PERFORMED AC95-SXQ/COR CLINICAL PROFILE AND INDICATIONS Indications: Suspected CAD Heart Failure: NYHA Class: 3, Newly Diagnosed: Yes, Heart Failure Type: Systolic Stress/Imaging Stress/Image Study Performed: No CONCLUSIONS Severe [place] coronary artery disease. The left main stent is patent. The left anterior descending artery is subtotally occluded. The previously stented circumflex artery is patent with some in-stent stenosis. The previously stented right coronary artery is patent with mild in-stent stenosis. Comp ared to the previous angiographic findings from January 2020 there has been little change. RECOMMENDATIONS Medical therapy DESCRIPTION OF PROCEDURE The patient arrived to the procedure lab. The risks and benefits of the procedure as well as a full d escription of our services here and current unavailability of surgical backup were fully explained to the patient and/or their significant other prior to the catheterization. The Timeout was completed, verifying the correct patient and procedure. The patient's procedural site was prepped and draped in the usual fashion. Local anesthetic was given subcutaneously to right radial region with Lidocaine 2% . Using a modified Seldinger technique, arterial access was obtained via the right radial artery, a 6 Fr sheath was inserted. Left Coronary Artery selective angiography was performed in multiple views u sing a 5 Fr. 4.0 Alexander catheter. Right Coronary Artery selective angiography was then performed in mu ltiple views using a 5 Fr. 4.0 Alexander catheter.The arterial sheath was pulled and a TR Band was applie d for hemostasis 12cc air CORONARY ANGIOGRAPHY DOMINANCE: Right Dominant LEFT HEART ASSESSMENT Left Ventricular Ejection Fraction: by Echo 25 % Global Hypokinesis - Severe Depressed Left Ventricular systolic function LEFT MAIN: Previously placed stent has an instent 20 % restenosis LEFT ANTERIOR DESCENDING ARTERY: is occluded CIRCUMFLEX ARTERY: Previously placed stent is patent, Mild luminal irregularities OSTIAL CIRC: Instent restenosis 40 % RIGHT CORONARY ARTERY: Previously placed stent is patent PROX RCA: Previously placed stent is patent RT PDA: Ostial - 60 % Stenosis COMPLICATIONS No Complications PROCEDURE MEDICATIONS Fentanyl 50 mcg IV Versed 1 mg IV Versed 1 mg IV Oxygen: 3 L/min via nasal cannula Heparin diluted in 23cc Heparinized saline. Patient given 10cc IA of this solution. 11/19/2020 08:19: 20 Verapamil 2.5mg, Ntg 100mcgs, 2000 units of Heparin diluted in 23cc Heparinized saline. Patient give n 10cc IA of this solution. 11/19/2020 08:19:20 SUMMARY OF HEMODYNAMIC DATA Time AIR REST ECG 08:09:09 Art 108/55 (71) 08:26:37 AO 106/69 (87) SA 08:29:48 Signed By Roque Lawrence MD On 11/19/2020 08:53:16 Roque Lawrence MD
--- NOTE | 2020-11-20 12:05 | DCINST_ITS ---
- Discharge Diagnoses Current Active Problems: Current Active and Chronic Problems (Last Reviewed 11/19/20 @ 05:[address] Jose Orozco MD) Chest pain (Acute) Atherosclerosis of coronary artery of [place] heart with angina pectoris (Chronic) 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) History of non-ST elevation myocardial infarction (NSTEMI) (Chronic 08/13/19) 04/2018 History of coronary artery stent placement (Chronic 09/16/19) PCI-DOUGLAS-Mid LCx w/ 3.5 x 30 mm Resolute [place] and DOUGLAS- Distal LMT w/ 5.0 x 22 mm Resolute [place] 09/16/2019; PCI-DOUGLAS-LAD 2.0 x 30 mm Resolute [place], 2.5 x 38 mm and 3.0 x 23 mm Xience Soledad 04/27/18; UTP-OHC-Jpj-Distal RCA w/ 4.0 x 20 mm Promus Premier and DOUGLAS-Prox RCA w/ 4.0 x 12 mm Promus Premier 11/18/2014 ;Cutting balloon PTCA of posterior ventricular branch of RCA and PCI-Stent Prox LAD w/ 3.0 x 8 mm Penta Stent and Mid LAD w/ 3.0 x 13 mm Penta Stent 03/05/2002; Ischemic cardiomyopathy (Chronic) History of implantable cardiac defibrillator (ICD) (Chronic 05/17/10) Chronic systolic (congestive) heart failure (Chronic) Nonsustained ventricular tachycardia (Chronic) Essential (primary) hypertension (Chronic) HLD (hyperlipidemia) (Chronic) Left carotid artery stenosis (Chronic) 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) You will use the following diet at home:: Cardiac Your food should be the consistency of: Regular Your liquids should be the consistency of: Regular/Thin Discharge Activity: Return to Normal Activity, No Restrictions Allergies/Adverse Reactions: Allergies hydrochlorothiazide Allergy (Severe, Verified 09/09/20 10:08) Severe itching rash promethazine [From Phenergan] Allergy (Verified 11/19/20 00:28) Other ranolazine [From Ranexa] Adverse Reaction (Severe, Verified 09/09/20 10:08) Rash omeprazole Adverse Reaction (Verified 09/09/20 10:08) Unknown Phenothiazines Adverse Reaction (Verified 09/09/20 10:08) Unknown Tsdyaqh-Sto-Xii Reductase Inhibitor Adverse Reaction (Verified 09/09/20 10:08) myalgias PHENEGRANZOLE Adverse Reaction (Uncoded 09/09/20 10:08) Unknown Medications to take at Discharge Aspirin E.C. [Ecotrin] 81 mg PO DAILY@0800 07/11/13 Pantoprazole Sodium [Protonix] 40 mg PO DAILY 10/29/16 Clopidogrel Bisulfate [Plavix] 75 mg PO DAILY 04/20/18 testosterone 20.25 mg/1.25 gram (1.62 %) transdermal gel pump 1 pump TOPICAL DAILY #150 g 04/06/20 nitroglycerin 0.4 mg sublingual tablet 0.4 mg SUBLINGUAL Q5-15M PRN #25 tab 07/22/20 amlodipine 2.5 mg tablet 2.5 mg PO DAILY #90 tab 09/10/20 Doxycycline Hyclate 100 mg PO BID 11/19/20 Prednisone 40 mg PO DAILY 11/19/20 Isosorbide DN [Isordil] 10 mg PO TID #90 tablet 11/20/20 Metoprolol Succinate [Toprol Xl] 50 mg PO DAILY #90 tablet 11/20/20 The following prescriptions were given: Isosorbide DN [Isordil] 10 mg PO TID #90 tablet Transmission Status: Pending to [facility]/pharmacy #[id number] Metoprolol Succinate [Toprol Xl] 50 mg PO DAILY #90 tablet Transmission Status: Pending to [facility]/pharmacy #[id number] Primary Care Physician: Jacques Pena Chi, MD [Primary Care Provider] - Please follow up with your Primary Care Physician in: 1 week Test Results: Test results from this visit will be discussed in further detail at your follow- up appointment, if applicable. Please Follow Up With: Roque Lawrence MD When: 2-4 weeks
--- NOTE | 2020-11-20 12:07 | DS.PCM_ITS ---
Discharge Date and Diagnosis - Problem List Patient Problems: Active and Suspected Problems (Last Reviewed 11/19/20 @ 05:[address] Jose Orozco MD) Chest pain (Acute) Date of Admission: 11/19/20 Date of Discharge: 11/20/20 - Primary Discharge Diagnosis Acute Problems: Active Problems (Last Reviewed 11/19/20 @ 05:[address] Jose Orozco MD) Chest pain (Acute) - Secondary Discharge Diagnosis Chronic Problems: Chronic Problems (Last Reviewed 11/19/20 @ 05:[address] 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) History of non-ST elevation myocardial infarction (NSTEMI) (Chronic 08/13/19) 04/2018 History of coronary artery stent placement (Chronic 09/16/19) PCI-DOUGLAS-Mid LCx w/ 3.5 x 30 mm Resolute [place] and DOUGLAS- Distal LMT w/ 5.0 x 22 mm Resolute [place] 09/16/2019; PCI-DOUGLAS-LAD 2.0 x 30 mm Resolute [place], 2.5 x 38 mm and 3.0 x 23 mm Xience [place] 04/27/18; CAD-BDF-Xse-Distal RCA w/ 4.0 x 20 mm Promus Premier and DOUGLAS-Prox RCA w/ 4.0 x 12 mm Promus Premier 11/18/2014 ;Cutting balloon PTCA of posterior ventricular branch of RCA and PCI-Stent Prox LAD w/ 3.0 x 8 mm Penta Stent and Mid LAD w/ 3.0 x 13 mm Penta Stent 03/05/2002; Ischemic cardiomyopathy (Chronic) History of implantable cardiac defibrillator (ICD) (Chronic 05/17/10) Chronic systolic (congestive) heart failure (Chronic) Nonsustained ventricular tachycardia (Chronic) Essential (primary) hypertension (Chronic) HLD (hyperlipidemia) (Chronic) Left carotid artery stenosis (Chronic) 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 chest pain TECHNIQUE: AP portable chest. COMPARISON: January 10, 2020. FINDINGS: There are now mild patchy perihilar opacities. No effusions. No pneumothorax. Normal size heart. Normal mediastinum and agapito. Normal visualized pulmonary arteries. Normal visualized aortic arch and descending thoracic aorta. Normal visualized thoracic spine. Normal visualized ribs, clavicles, and shoulders. Cardiac pacemaker left hemithorax. There is no demonstrated abnormality of the visualized soft tissue structures of the upper abdomen. RAD/Chest 1 View (Portable) IMPRESSION: Mild vascular congestion versus bilateral pneumonia. atient Name: FLEX SOLIS Study Date: 11/19/2020 Performing: Roque Lawrence MD Ht: 70 inches 178 cm : 1935 Wt: 178.8 lbs 81 kg Age: 85 Gender: male BSA: 1.99 PROCEDURE(S) PERFORMED [address]/[facility] CLINICAL PROFILE AND INDICATIONS Indications: Suspected CAD Heart Failure: NYHA Class: 3, Newly Diagnosed: Yes, Heart Failure Type: Systolic Stress/Imaging Stress/Image Study Performed: No CONCLUSIONS Severe [place] coronary artery disease. The left main stent is patent. The left anterior descending artery is subtotally occluded. The previously stented circumflex artery is patent with some in-stent stenosis. The previously stented right coronary artery is patent with mild in-stent stenosis. Compared to the previous angiographic findings from January 2020 there has been little change. RECOMMENDATIONS Medical therapy DESCRIPTION OF PROCEDURE The patient arrived to the procedure lab. The risks and benefits of the procedure as well as a full description of our services here and current unavailability of surgical backup were fully explained to the patient and/or their significant other prior to the catheterization. The Timeout was completed, verifying the correct patient and procedure. The patient's procedural site was prepped and draped in the usual fashion. Local anesthetic was given kennedy bcutaneously to right radial region with Lidocaine 2%. Using a modified Seldinger technique, arterial access was obtained via the right radial artery, a 6Fr sheath was inserted. Left Coronary Artery selective angiography was performed in multiple views using a 5 Fr. 4.0 Hancock catheter. Right Coronary Artery selective angiography was then performed in multiple views using a 5 Fr. 4.0 Hancock catheter.The arterial sheath was pulled and a TR Band was applied for hemostasis 12cc air CORONARY ANGIOGRAPHY DOMINANCE: Right Dominant LEFT HEART ASSESSMENT Left Ventricular Ejection Fraction: by Echo 25 % Global Hypokinesis - Severe Depressed Left Ventricular systolic function LEFT MAIN: Previously placed stent has an instent 20 % restenosis LEFT ANTERIOR DESCENDING ARTERY: is occluded CIRCUMFLEX ARTERY: Previously placed stent is patent, Mild luminal irregularities OSTIAL CIRC: Instent restenosis 40 % RIGHT CORONARY ARTERY: Previously placed stent is patent PROX RCA: Previously placed stent is patent RT PDA: Ostial - 60 % Stenosis COMPLICATIONS No Complications PROCEDURE MEDICATIONS Fentanyl 50 mcg IV Versed 1 mg IV Versed 1 mg IV Oxygen: 3 L/min via nasal cannula Heparin diluted in 23cc Heparinized saline. Patient given 10cc IA of this solution. 11/19/2020 08:19:20 Verapamil 2.5mg, Ntg 100mcgs, 2000 units of Heparin diluted in 23cc Heparinized saline. Patient given 10cc IA of this solution. 11/19/2020 08:19:20 SUMMARY OF HEMODYNAMIC DATA Time AIR REST ECG 08:09:09 Art 108/55 (71) 08:26:37 AO 106/69 (87) SA 08:29:48 Signed By Roque Lawrence MD On 11/19/2020 08:53:16 Cardiology Operations: None Summary of Care Provided: Mr. Solis is an 85-year-old male who was admitted to [facility] on 11/19/2020 after presenting with chest pain. He indicated that he had to take some nitroglycerin over the past few days and that he felt his energy level was diminished. Upon presentation in the emergency department, his troponin was obtained and his cardiac enzymes were abnormal. Given his significant coronary history cardiology was consulted and the patient was taken to the [facility] for further evaluation of his coronaries on 11/19/2020. His left heart cath revealed a patent left main stent, a subtotal occluded LAD, a left circumflex with a patent stent and moderate in-stent stenosis, a dominant right coronary with a patent stent, and the ostium of the PDA with 40 to 50% stenosis. When compared to previous left heart cath his coronary disease is stable and continued medical therapy has been recommended by cardiology. His metoprolol has been increased to 100 mg daily and Imdur was added by cardiology. He was also noted to be in heart failure on admission BNP of 542.7. He has been diuresed with Lasix and states he feels like he is back to baseline. Vital signs are stable with the increases in his medications. He is now on room air with oxygen saturations at 95% both at rest and ambulation. He shows some mild PILAR with a creatinine of 1.40 but this seems to fluctuate. We will not discharge him on any diuretic at this time and monitor him clinically. He is to follow-up with his primary care physician in 1 to [address] Lawrence in 2 to 4 weeks. 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 tach Left carotid artery stenosis Hypogonadism Degenerative disc disease Hiatal hernia Leukocytosis secondary to steroid use Troponin elevation Dermatitis Patient Problems: Active and Suspected Problems (Last Reviewed 11/19/20 @ 05:[address] Jose Orozco MD) Chest pain (Acute) Subjective: Patient is currently sitting up in a chair. States he feels well reports physical therapy was just at the bedside and that he did well with them. States he is anxious to go home. Denies any shortness of breath. He ambulated with nursing and oxygen saturations were 95% on room air. - Physical Exam Vitals/I&O's: Vital Signs Temp Pulse Resp BP Pulse Ox 98.7 F 76 16 109/53 L 95 11/20/20 09:07 11/20/20 09:28 11/20/20 09:07 11/20/20 09:07 11/20/20 09:41 Oxygen Flow Rate (L/min) 2 Oxygen Delivery Method Room Air Weight: 81.5 kg Body Mass Index (BMI) 25.7 Intake and Output for Last 24 Hours 11/18/20 11/19/20 11/20/20 23:59 23:59 23:59 Intake Total 1335 / 1335 60 / 60 Output Total 1600 / 1600 125 / 125 Balance -265 / -265 -65 / -65 General: Alert, Oriented x3, Cooperative, No apparent distress, Well developed, Well nourished HEENT: Atraumatic, Normocephalic Oral: Moist Mucosa, No Gingival or Mucosal Lesions/ Ulcerations Neck: Supple, Trachea Midline Lungs: Clear to auscultation, Normal air movement, No rhonchi, No wheeze, No rales Cardiovascular: Regular rate, Regular Rhythm, Normal S1, Normal S2, No murmurs, No Ectopic Activity, No rub noted, No Gallop Abdomen: Bowel Sounds Present, Soft, Non Tender, Non-Distended Extremities: No clubbing, No cyanosis, No edema, Capillary Refill Less than 3 Seconds, Peripheral Pulses Normal Neurological: Cranial nerves II-XII grossly intact, Neuro grossly intact Psych/Mental Status: Normal Affect, Appropriate Microbiology Past 72 Hours 11/19/20 05:45 Urine, Clean Catch Streptococcus pneumoniae Antigen (M - Final 11/19/20 05:45 Urine, Clean Catch Legionella Antigen - Final 11/19/20 01:22 Nasal Secretion SARS-CoV-2 Antigen (Rapid) - Final Laboratory Results 11/19/20 18:25: WBC 13.7 H, RBC 4.09 L, Hgb 12.3 L, Hct 39.0 L, MCV 95.4 H, MCH 30.1, MCHC 31.5 L, RDW Std Deviation 51.6 H, RDW Coeff of Dane 14.8 H, Plt Count 210, MPV 13.8 H, Immature Gran % (Auto) 0.700, Neut % (Auto) 92.6 H, Lymph % (Auto) 3.5 L, [place] % (Auto) 3.1, Eos % (Auto) 0.0, Baso % (Auto) 0.1, Absolute Neuts (auto) 12.7 H, Absolute Lymphs (auto) 0.48 L, Nucleated RBC % 0, Differential Comment SEE COMMENT, Platelet Estimate ADEQUATE, RBC Morphology N CHROM, Anisocytosis RARE, Macrocytosis RARE 11/19/20 18:25: Sodium 136, Potassium 4.4, Chloride 105, Carbon Dioxide 27.0, Anion Gap 4 L, BUN 39 H, Creatinine 1.40 H, Estim Creat Clear Calc 40.56, Est GFR (MDRD) Af Amer 62, Est GFR (MDRD) Non-Af 51 L, BUN/Creatinine Ratio 27.9 H, Glucose 182 H, Calcium 9.1 Current Medications Acetaminophen (Acetaminophen 325 Mg Tablet) 650 mg PO Q6H PRN PRN PRN Reason: Pain Score 1-10/Temp > 100.7 F Amlodipine Besylate (Amlodipine 2.5 Mg Tablet) 2.5 mg PO DAILY [facility] Last Admin: 11/20/20 09:28 Dose: 2.5 mg Documented by: Aspirin (Aspirin E.C. 81 Mg Tablet) 81 mg PO DAILY@0800 [facility] Last Admin: 11/20/20 09:28 Dose: 81 mg Documented by: Belladonna Alkaloids/Opium (Opium/Belladonna Alkaloids 60 Mg/15 Mg Suppository) 60 mg RC Q6H PRN PRN PRN Reason: BLADDER SPASM Clopidogrel Bisulfate (Clopidogrel Bisulfate 75 Mg Tablet) 75 mg PO DAILY [facility] Last Admin: 11/20/20 09:27 Dose: 75 mg Documented by: Doxycycline Monohydrate (Doxycycline 100 Mg Capsule) 100 mg PO BID [facility] Last Admin: 11/20/20 09:27 Dose: 100 mg Documented by: Guaifenesin (Guaifenesin 600 Mg Tablet) 600 mg PO BID [facility] Last Admin: 11/20/20 09:28 Dose: 600 mg Documented by: Sodium Chloride () 1,000 mls @ 15 mls/hr IV .Q48H [facility] Last Admin: 11/19/20 08:33 Dose: Not Given Documented by: Isosorbide Dinitrate (Isosorbide Dn 10 Mg Tablet) 10 mg PO TID [facility] Last Admin: 11/20/20 05:23 Dose: 10 mg Documented by: Melatonin (Melatonin 3 Mg Tablet) 3 mg PO QHS PRN PRN PRN Reason: INSOMNIA Last Admin: 11/19/20 23:09 Dose: 3 mg Documented by: Metoprolol Succinate (Metoprolol(Xl)Succ 100 Mg Tablet) 100 mg PO DAILY [facility] Last Admin: 11/20/20 09:28 Dose: 100 mg Documented by: Morphine Sulfate (Morphine 2 Mg/Ml Syringe) 2 mg IV Q3H PRN PRN PRN Reason: Pain Score 6-10 Nitroglycerin (Nitroglycerin (Inpatient Use) 0.4 Mg Tab.Subl) 0.4 mg SL Q5M PRN PRN Reason: CARDIAC/CHEST PAIN Ondansetron HCl (Ondansetron 4 Mg/2 Ml Vial) 4 mg IV Q8H PRN PRN PRN Reason: NAUSEA/VOMITING Pantoprazole Sodium (Pantoprazole Sodium 40 Mg Tablet) 40 mg PO DAILY [facility] Last Admin: 11/20/20 09:27 Dose: 40 mg Documented by: Potassium Chloride (Potassium Chloride Oral Tablet 20 Meq) [facility] Admin: 11/20/20 09:28 Dose: 40 meq Documented by: Prednisone ([facility] 10 Mg Tablet) [facility] Last Admin: 11/20/20 09:28 Dose: 30 mg Documented by: Sodium Chloride (0.9% Saline Lock 10 Ml Syringe) 10 - 40 ml IV UD PRN PRN Reason: SALINE FLUSH Last Admin: 11/19/20 18:15 Dose: 10 ml Documented by: Discharge Activity: Return to Normal Activity, No Restrictions Home Medications: Medications to take at Discharge Aspirin E.C. [Ecotrin] 81 mg PO DAILY@0800 07/11/13 Pantoprazole Sodium [Protonix] 40 mg PO DAILY 10/29/16 Clopidogrel Bisulfate [Plavix] 75 mg PO DAILY 04/20/18 testosterone 20.25 mg/1.25 gram (1.62 %) transdermal gel pump 1 pump TOPICAL DAILY #150 g 04/06/20 nitroglycerin 0.4 mg sublingual tablet 0.4 mg SUBLINGUAL Q5-15M PRN #25 tab 07/22/20 amlodipine 2.5 mg tablet 2.5 mg PO DAILY #90 tab 09/10/20 Doxycycline Hyclate 100 mg PO BID 11/19/20 Prednisone 40 mg PO DAILY 11/19/20 Isosorbide DN [Isordil] 10 mg PO TID #90 tablet 11/20/20 Metoprolol Succinate [Toprol Xl] 50 mg PO DAILY #90 tablet 11/20/20 Following Prescriptions Were Given to Patient: Isosorbide DN [Isordil] 10 mg PO TID #90 tablet Transmission Status: Received by [facility]/pharmacy #[id number] Metoprolol Succinate [Toprol Xl] 50 mg PO DAILY #90 tablet Transmission Status: Received by [facility]/pharmacy #[id number] Primary Care Physician: Jacques Pena Chi, MD [Primary Care Provider] - Please follow up with your Primary Care Physician in: 1 week Please Follow Up With: Roque Lawrence MD When: 2-4 weeks Medical Necessity - Tobacco Use Smoking Status: Never smoker Meaningful Use Info Meaningful Use Diagnoses (Choose all that apply): None applicable Inpatient E&M: [address] [facility]
== END 2020-11-20 14:05 | disposition home or self-care (01) | DRG 286 ==
LOC: ED 00:40 → PCU 03:19
PROVIDERS: Admitting Provider Hospitalist; Emergency Provider Emergency Medicine; PCP Family Medicine Geriatric Medicine; Visit Provider Internal Medicine
DX: I25.119 Atherosclerotic heart disease of native coronary artery with unspecified angina pectoris (principal); I50.23 Acute on chronic systolic (congestive) heart failure; J96.01 Acute respiratory failure with hypoxia; I47.2 Ventricular tachycardia; I13.0 Hypertensive heart and chronic kidney disease with heart failure and stage 1 through stage 4 chronic kidney disease, or unspecified chronic kidney disease; T82.855A Stenosis of coronary artery stent, initial encounter; N17.9 Acute kidney failure, unspecified; I25.82 Chronic total occlusion of coronary artery; I25.5 Ischemic cardiomyopathy; I25.2 Old myocardial infarction; N18.32 Chronic kidney disease, stage 3b; E78.5 Hyperlipidemia, unspecified; K21.9 Gastro-esophageal reflux disease without esophagitis; D75.1 Secondary polycythemia; M99.05 Segmental and somatic dysfunction of pelvic region; I44.7 Left bundle-branch block, unspecified; L30.9 Dermatitis, unspecified; M99.02 Segmental and somatic dysfunction of thoracic region; Y83.1 Surgical operation with implant of artificial internal device as the cause of abnormal reaction of the patient, or of later complication, without mention of misadventure at the time of the procedure; Z95.810 Presence of automatic (implantable) cardiac defibrillator; Z79.02 Long term (current) use of antithrombotics/antiplatelets; Z79.82 Long term (current) use of aspirin; Z79.899 Other long term (current) drug therapy; Z79.52 Long term (current) use of systemic steroids
CPT/HCPCS: 36415; 71045; 80048; 83605; 83880; 84484; 85025; 87040; 87426; 87449; 87635; 93005; 93454; 97110; 97162; 97166; 97535; 99152; 99153; 99285; J7040; J7050; Q9967; A4216; C1769; C1894; J1940; J2405; U0002

== ENCOUNTER 2020-11-22 09:14 | Emergency (ER) | payer MEDICARE, OTHER, SELFPAY ==
[2020-04-02 11:50] VITALS: BMI 26.2
[2020-11-19 04:16] VITALS: BMI 25.7
[2020-11-22 09:15] VITALS: BP 159/83; PULSE 83; RESP 14; TEMP 35.7; O2SAT 99; BMI 25.1
[2020-11-22] MEDS: Lidocaine Jelly 2% 20 ML Syringe (URO-JET) 20 APPLIC TOPICAL (10:05)
[2020-11-22 10:34] LABS: Bacteria 0 SEEN /hpf (None Seen); Mucous, Urine 0 SEEN /hpf (<or=2+); Squamous Epithelial Cells - UA 0 SEEN /hpf (0-5); White Blood Cells 0 SEEN /hpf (0-5)
[2020-11-22 10:38] LABS: Color, Urine Yellow (Yellow); Glucose, Dipstick Normal (Normal); Ketone-Dipstick Negative (Negative); Leukocyte Esterase-Dipstick Negative /ul (Negative); Nitrite-Dipstick Negative (Negative); Occult Blood-Urine Negative /ul (Negative); Protein-Dipstick Negative (Negative); Specific Gravity, Urine 1.015 (1.002-1.030); Urine Bilirubin Dipstick Negative (Negative); Urine Clarity Clear (Clear); Urine Urobilinogen Normal (Normal)
[2020-11-22 10:39] LABS: Absolute Lymphocyte Count 1.44 X10^3/uL (0.83-4.51); Absolute Neutrophil Count 8.9 X10^3/uL (2.0-7.7); Basophil# 0.02 X10^3/uL; Basophil% 0.2 % (0-1); Eosinophil# 0.08 X10^3/uL; Eosinophils% 0.7 % (0-5); Hematocrit 43.8 % (40-54); Hemoglobin 13.8 g/dL (13.0-16.5); Lymphocyte # 1.44 X10^3/ul (0.83-4.51); Lymphocyte % 12.8 % (19-41); Mean Corp Hgb Conc 31.5 g/dL (32-36); Mean Corpuscular Hgb 30.1 pg (27.0-32.0); Mean Corpuscular Volume 95.4 fL (80-94); Mean Platelet Vol. 13.3 fl (6.2-12.0); Monocyte# 0.76 X10^3/uL; Monocyte% 6.7 % (0-10); NRBC Flagged by Analyzer 0 % (0-5); Neutrophil # 8.88 X10^3/uL (2.7-7.7); Neutrophil % 78.6 % (47-70); Platelet Count 221 K/mm3 (150-450); RBC Distribution Width CV 14.1 % (11.6-14.6); RBC Distribution Width SD 49.6 fl (35.1-43.9); Red Blood Count 4.59 M/mm3 (4.6-6.2); White Blood Count 11.3 K/mm3 (4.4-11.0)
--- NOTE | 2020-11-22 10:44 | CT_ITS ---
STUDY: CT ABDOMEN AND PELVIS WITHOUT CONTRAST REASON FOR EXAM: Male, 85 years old. Pain RADIATION DOSAGE (If Supplied By Facility): CTDIvol = ( 7.29 ) mGy, DLP = ( 375.17 ) mGycm TECHNIQUE: Transaxial images were obtained from the dome of the diaphragm to the symphysis pubis without oral contrast, and without intravenous contrast. Sagittal and coronal images were reconstructed. Individualized dose optimization techniques were used for this CT. COMPARISON: CT chest September 24, 2012 FINDINGS: The visualized lung bases are unremarkable. There is partial visualization of a pacemaker lead. There are coronary calcifications. There is mild cardiac enlargement. Normal liver. There are multiple stones layering in the gallbladder. Normal spleen. There is diffuse atrophy of the pancreas. Normal bilateral adrenal glands. There is mild right renal pelviectasis and mild distention of the right ureter without visualization of stone along the course of the right ureter. There is a 4 mm stone in the mid right kidney. There is mild left pelviectasis. In the lower pole there is a sizable ovoid stone measuring 1.3 x 1.0 cm. There is no significant hydronephrosis. Normal visualized stomach. There mildly distended loops of small bowel within the left upper quadrant. There is abundant stool in the colon. There is diverticulosis without visualized diverticulitis. There is a tortuous appearance of the splenic flexure. There is abundant stool within the transverse colon and ascending colon. There is non-visualization of the appendix. There is partial calcification of the aorta. The distal aorta above the bifurcation is mildly aneurysmal measuring 2.7 x 2.5 cm with calcification. There is calcification of bilateral common iliac arteries. Normal inferior vena cava. Normal retroperitoneum. There is a Medley catheter in the bladder. The bladder is decompressed around the Medley. Normal visualized prostate gland. Normal abdominal wall. There is levoscoliosis centered at the level of L1-L2. There is L1-L2 disc space narrowing spondylosis minimal neural foramina narrowing or central stenosis. There is a broad disc bulge L2 L3 L3 L4 L4 L5 with mild to moderate central stenosis. There is facet arthropathy. CT/Abdomen/Pelvis without Cont IMPRESSION: Constipation. Nonspecific mild distention of the proximal small bowel. Distended gallbladder with multiple stones could consider follow-up ultrasound. Large nonobstructing stone left kidney measuring 1.3 x 1.0 cm. Punctate stone right kidney. Minimal bilateral pelviectasis without hydronephrosis. Nonvisualization of the appendix Medley catheter in the bladder. Degenerative change in the thoracolumbar spine. 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 Coronary artery calcifications. Mild cardiomegaly Electronically Signed: Charleen Linares MD at 11:39 EDT Tel , Service support ,
[2020-11-22 10:53] LABS: Anion Gap 7 (5-15); BUN 52 mg/dL (7-18); BUN/Creat Ratio 23.4 RATIO (10-20); Calcium,Total 9.2 mg/dL (8.5-10.1); Chloride 103 mmol/L (98-107); Creatinine, Serum 2.22 mg/dL (0.70-1.30); EST Glomerular Filtration Rate 30 mL/min (>60); Est Glom Filt Rate - Afr Amer 36 mL/min (>60); Estimated Creatinine Clearance 25.58 ml/min; Glucose 106 mg/dL (74-106); Potassium 4.3 mmol/L (3.5-5.1); Sodium Level 138 mmol/L (136-145)
[2020-11-22 10:53] LABS: Red Blood Cells-Urine 0-5 SEEN /hpf (0-5)
[2020-11-22] MEDS: Morphine 4 MG/ML Syringe IV (10:58)
[2020-11-22] MEDS: Ondansetron 4 MG/2 ML Vial IV (10:59)
--- NOTE | 2020-11-22 11:22 | ED.VISSUMM ---
- ER Visit Summary Date of Service: 11/22/20 Chief Complaint: Urinary retention History of Present Illness: The patient is a [address] Pena and Dr. Lawrence. He was admitted to the hospital from the 15th to the 16th of this month for pleural effusions. He reports that he was placed on Lasix and was urinating frequently from this, but that it was just a trickle. He reports that he has not been able to empty his bladder completely for the past 2 days. It just dribbles when he attempts to urinate. He complains of lower abdominal pain is 8 out of 10 in severity and describes this as aching. Patient reports that his last normal bowel movement was 5 days ago. He took magnesium citrate yesterday. He reports that he is passing liquid without any stool in it. He does complain of rectal pain as well. Physical Examination: Vitals: Stable. Afebrile. General: Well-nourished and well-developed. Head: Normocephalic atraumatic. Neck: Supple, no lymphadenopathy. No JVD. Nontender. Cardiovascular: Regular rate and rhythm. 2 out of 6 systolic murmur. Respiratory: No respiratory distress. Clear to auscultation bilaterally. Abdominal: Soft, moderate suprapubic tenderness to palpation with an obviously distended bladder, nondistended, normal bowel sounds. No guarding, rebound, or peritoneal signs. Rectal: There is an external hemorrhoid that is tender. It is not thrombosed or bleeding. There is no stool in the vault. Back: Nontender. Extremities: Nontender, no edema. Skin: Normal color, no rash. Neurologic: Alert and oriented ?3. Cranial nerves II through XII are intact. Normal strength and sensation. Psych: Normal affect. Test Results: CBC shows a white count of 11.3, segmented for 79, lymphocytes 13, immature granulocytes 1%. Chem-7 shows a BUN of 52 and creatinine 2.22. Creatinine ranged between 1.21 and 1.4 this year. It was 1.43 days ago. UA is negative. Clinical Impression(s) from Imaging Studies Abdomen/Pelvis CT 11/22/20 10:44 IMPRESSION: Constipation. Nonspecific mild distention of the proximal small bowel. Distended gallbladder with multiple stones could consider follow-up ultrasound. Large nonobstructing stone left kidney measuring 1.3 x 1.0 cm. Punctate stone right kidney. Minimal bilateral pelviectasis without hydronephrosis. Nonvisualization of the appendix Medley catheter in the bladder. Degenerative change in the thoracolumbar spine. 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 Coronary artery calcifications. Mild cardiomegaly Electronically Signed: Charleen Linares MD at 11:39 EDT Tel , Service support , Emergency Department Course and Treatment: Patient had a Medley catheter placed and more than a liter of urine returned. His abdominal pain is completely resolved. He was given dose of morphine and Zofran IV for his rectal pain. I suspect that the patient's creatinine has increased from 1.4-2.22 due to his urinary retention. He was not discharged on Lasix. Treatment Plan: Patient will be discharged with Proctofoam for his hemorrhoid. He will be placed on Flomax for his urinary retention. Instructed to follow-up with Dr. Whittington in 1 to 2 weeks for the hemorrhoid. Follow-up with Dr. Sahu in 3 to 5 days for the urinary retention. Disposition: To home in improved and stable condition. Impression: 1. Urinary retention. 2. Acute kidney injury. 3. External hemorrhoids. This note was generated with [employer] dictation software. It may contain incorrect words, spelling, and punctuation that were not noted in review of the chart prior to signing ED Disposition - Plan for ED Patient: Disposition: Home or Assisted Living Instructions: ED Hemorrhoids, ED Urinary Retention, Male Prescriptions: Tamsulosin HCl [Flomax] 0.4 mg PO DAILY #30 capsule Prescription Printed Hydrocortisone/Pramoxine [Proctofoam-Hc Foam] 10 gm RC TID #30 foam Prescription Printed Referrals: Jacques Pena Chi, MD [Primary Care Provider] - Dominick Whittington MD [STAFF PHYSICIAN] - 1-2 Weeks Sanchez Sahu MD [STAFF PHYSICIAN] - 3-5 Days
[2020-11-22 12:39] VITALS: BP 135/75; PULSE 63; RESP 18; O2SAT 97
== END 2020-11-22 13:01 | disposition home or self-care (01) ==
LOC: ED 11:47
PROVIDERS: Emergency Provider Emergency Medicine; PCP Family Medicine Geriatric Medicine
DX: R33.9 Retention of urine, unspecified (principal); N17.9 Acute kidney failure, unspecified; K64.4 Residual hemorrhoidal skin tags; I25.10 Atherosclerotic heart disease of native coronary artery without angina pectoris
CPT/HCPCS: 51702; 74176; 80048; 81001; 85025; 96374; 96375; 99285; A4216; J2405

== ENCOUNTER → 2020-12-04 10:23 | Outpatient (CLI) | payer MEDICARE, OTHER, SELFPAY ==
[2020-04-02 11:50] VITALS: BMI 26.2
[2020-11-22 09:15] VITALS: BMI 25.1
[2020-12-04 12:29] LABS: Anion Gap 4 (5-15); BUN 23 mg/dL (7-18); Chloride 102 mmol/L (98-107); Creatinine, Serum 1.15 mg/dL (0.70-1.30); EST Glomerular Filtration Rate 64 mL/min (>60); Est Glom Filt Rate - Afr Amer 78 mL/min (>60); Glucose 136 mg/dL (74-106); Potassium 4.2 mmol/L (3.5-5.1); Sodium Level 134 mmol/L (136-145)
== END ==
PROVIDERS: PCP Family Medicine Geriatric Medicine; Visit Provider Family Medicine Geriatric Medicine
DX: N17.0 Acute kidney failure with tubular necrosis (principal); N39.0 Urinary tract infection, site not specified
CPT/HCPCS: 36415; 80048; 87086; 87088

== ENCOUNTER 2020-12-05 09:52 | Observation (INO) | payer MEDICARE, OTHER, SELFPAY ==
[2020-04-02 11:50] VITALS: BMI 26.2
[2020-12-05 09:53] VITALS: BP 143/80; PULSE 79; RESP 16; TEMP 36.4; O2SAT 97; BMI 24.2
--- NOTE | 2020-12-05 10:13 | EDS_ITS ---
HPI History of Present Illness Chief Complaint: Complaint Detail of Chief Complaint: hematuria Informant: patient and spouse/S.O. Pain Onset: - (blood, no pain; noticed this AM) Timing: Continuous Current Severity: Moderate Maximum Severity: Moderate Worsened by: n/a Relieved by: n/a Narrative Narrative: Patient on aspirin and Plavix for coronary artery disease with stents was recently admitted to the hospital with pleural effusions and put on Lasix where he started noticing trouble urinating with frequency, and subsequently had urinary retention, had a Medley catheter placed, saw urology and told that his prostate was on the large side and he was set up for a TURP. This past week, he has had brown and mildly bloody urine off and on, he did have the catheter clog at one point and he was at his PCPs office where he had the catheter switched out. This morning he woke up with a Medley bag full of blood, he emptied it and then it filled long term back up with more blood, and has continued to flow with blood since. He has had no clogging of the catheter, no clots, no pain, nausea, vomiting, fevers, back pain. He also states that he had constipation recently and took magnesium citrate which was recommended, which helped clean him out and he had fairly unremarkable bowel movement after that, no blood in it or melena. Patient states he stopped taking his Plavix 2 or 3 days ago but still taking aspirin. [facility] Medical History Atherosclerosis of coronary artery of [place] heart with angina pectoris Carotid artery disease Chronic systolic (congestive) heart failure DDD (degenerative disc disease) Essential (primary) hypertension GERD (gastroesophageal reflux disease) Hiatal hernia History of non-ST elevation myocardial infarction (NSTEMI) (11/19/20) HLD (hyperlipidemia) Ischemic cardiomyopathy Left carotid artery stenosis Nonsustained ventricular tachycardia 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 infarction Polycythemia Segmental and somatic dysfunction of pelvic region Segmental and somatic dysfunction of thoracic region Home Medications aspirin 81 mg PO DAILY@0800 07/11/13 [History Last Taken 08/12/19] pantoprazole 40 mg PO DAILY 10/29/16 [History Last Taken 08/13/19] clopidogrel 75 mg PO DAILY 04/20/18 [History Last Taken 01/07/20] testosterone 20.25 mg/1.25 gram (1.62 %) transdermal gel pump 1 pump TOPICAL DAILY #150 g 04/06/20 [Rx Last Taken Unknown] nitroglycerin 0.4 mg sublingual tablet 0.4 mg SUBLINGUAL Q5-15M PRN #25 tab 07/22/20 [Rx Last Taken Unknown] amlodipine 2.5 mg tablet 2.5 mg PO DAILY #90 tab 09/10/20 [Rx Last Taken Unknown] doxycycline hyclate 100 mg PO BID 11/19/20 [History Last Taken Unknown] prednisone 40 mg PO DAILY 11/19/20 [History Last Taken Unknown] isosorbide dinitrate 10 mg PO TID #90 tablet 11/20/20 [Rx Last Taken Unknown] metoprolol succinate 50 mg PO DAILY #90 tablet 11/20/20 [Rx Last Taken Unknown] hydrocortisone-pramoxine 10 gm RC TID #30 foam 11/22/20 [Rx Last Taken Unknown] tamsulosin 0.4 mg PO DAILY #30 capsule 11/22/20 [Rx Last Taken Unknown] Allergy/AdvReac Type Severity Reaction Status Date / Time hydrochlorothiazide Allergy Severe Severe Verified 12/05/20 09:52 itching rash promethazine [From Phenergan] Allergy Other Verified 12/05/20 09:52 ranolazine [From Ranexa] AdvReac Severe Rash Verified 12/05/20 09:52 omeprazole AdvReac Unknown Verified 12/05/20 09:52 Phenothiazines AdvReac Unknown Verified 12/05/20 09:52 Nxabihh-Ipt-Xof Reductase AdvReac myalgias Verified 12/05/20 09:52 Inhibitor PHENEGRANZOLE AdvReac Unknown Uncoded 12/05/20 09:52 Family History Father , Age 37 from [place] CAD (coronary artery disease) Myocardial infarction Sudden cardiac Mother , age 96 Diabetes Surgical History History of coronary artery stent placement (09/16/19) History of electrophysiologic study (2009) History of implantable cardiac defibrillator (ICD) (05/17/10) History of intraocular lens implant History of left heart catheterization (11/19/20) Social History (Updated 09/09/20 @ 14:08 by Allegra Perez PA, PA) Smoking Status: Never smoker alcohol intake: never substance use type: does not use caffeine: Yes Type: carbonated beverages Number of servings: 1 and coffee Number of servings: 1 what type of physical activity do you participate in: none ROS ROS ED Constitutional Constitutional ED: Denies chills or fever(s) Eyes Eyes: Denies change in vision or diplopia ENT ENT ED: Denies rhinorrhea or sore throat Cardiovascular Cardiovascular: Denies chest pain or palpitations Respiratory/Chest Respiratory/Chest: Denies cough or dyspnea Gastrointestinal Gastrointestinal: Denies abdominal pain, diarrhea, nausea or vomiting Genitourinary Genitourinary ED: Reports hematuria; Denies dysuria Musculoskeletal Musculoskeletal: Denies back pain or neck pain Integumentary Denies abscess or rash Neurologic Neurologic: Denies headache(s), paresthesias or weakness Psychiatric Psychiatric: Denies anxiety or suicidal thoughts EXAM Physical Exam Const Vital Signs: 12/05/20 09:53 Temperature 97.6 F L Temperature Source Temporal Pulse Rate 79 Respiratory Rate 16 Blood Pressure 143/80 H Blood Pressure Mean 101 Pulse Ox 97 Oxygen Delivery Method Room Air Positive well nourished and well developed General Appearance ED: well developed and NAD HEENT Reports moist mucous membranes normocephalic and atraumatic Eyes PERRL and EOMs intact bilaterally Neck full ROM and supple Resp normal respiratory effort and clear to auscultation bilaterally Cardio regular rate, regular rhythm and no murmurs GI non-tender and non-distended Auscultation: normoactive bowel sounds Palpation: soft no CVA tenderness Narrative: Medley bag and catheter with gross blood, flowing Back/Spine no CVA tenderness General Back: other FROM Extremity normal to inspection General Extremety ED: Negative for edema, pulses abnormal or tenderness General Extremity: Negative for edema or pulses abnormal Neuro oriented x3, CN's II-XII intact bilaterally and no sensory deficits noted Sensorium / Orientation: awake and alert Motor Exam: strength 5/5 throughout Skin no rashes or lesions noted and no wounds MDM MDM MDM Narrative Medical decision making narrative: Nursing irrigated the patient's catheter, it cleared partially to pink urine, there were lots of small clots, then bleeding recurred, and then the catheter stopped flowing presumably because it clotted off. After discussing with patient and family this was changed out to a 22 [place] triple-lumen Medley catheter after pretreating him with Urojet, and we began continuous bladder irrigation. Labs show that the patient has lost a bit of blood since his last drawing but his numbers are still stable with a hemoglobin of 11.4 now. Discussed with urology who will consult. Plan is for admission. Urinalysis from several days ago showed no infection, since it was just blood today we sent her for culture only. Lab Data Attestation: I reviewed the patient's lab results. Labs: Laboratory Results - last 24 hr 12/05/20 12/05/20 Unknown Unknown WBC 5.1 RBC 3.87 L Hgb 11.4 L Hct 35.9 L MCV 92.8 MCH 29.5 MCHC 31.8 L RDW Std Deviation 47.3 H RDW Coeff of Dane 14.0 Plt Count 184 MPV 13.0 H Immature Gran % (Auto) 0.400 Neut % (Auto) 76.2 H Lymph % (Auto) 14.7 L [place] % (Auto) 5.7 Eos % (Auto) 2.4 Baso % (Auto) 0.6 Absolute Neuts (auto) 3.9 Absolute Lymphs (auto) 0.75 L Nucleated RBC % 0 Sodium 139 Potassium 4.1 Chloride 105 Carbon Dioxide 28.0 Anion Gap 6 BUN 20 H Creatinine 1.16 Estim Creat Clear Calc 48.95 Est GFR (MDRD) Af Amer 77 Est GFR (MDRD) Non-Af 64 BUN/Creatinine Ratio 17.2 Glucose 158 H Calcium 8.8 Discharge Plan Dx/Rx/DC Orders Clinical Impression: Hematuria Disposition Disposition: Acute Care Hospital [facility]
[2020-12-05 10:55] LABS: Absolute Lymphocyte Count 0.75 X10^3/uL (0.83-4.51); Absolute Neutrophil Count 3.9 X10^3/uL (2.0-7.7); Basophil# 0.03 X10^3/uL; Basophil% 0.6 % (0-1); Eosinophil# 0.12 X10^3/uL; Eosinophils% 2.4 % (0-5); Hematocrit 35.9 % (40-54); Hemoglobin 11.4 g/dL (13.0-16.5); Lymphocyte # 0.75 X10^3/ul (0.83-4.51); Lymphocyte % 14.7 % (19-41); Mean Corp Hgb Conc 31.8 g/dL (32-36); Mean Corpuscular Hgb 29.5 pg (27.0-32.0); Mean Corpuscular Volume 92.8 fL (80-94); Monocyte# 0.29 X10^3/uL; Monocyte% 5.7 % (0-10); NRBC Flagged by Analyzer 0 % (0-5); Neutrophil # 3.88 X10^3/uL (2.7-7.7); Neutrophil % 76.2 % (47-70); Platelet Count 184 K/mm3 (150-450); RBC Distribution Width SD 47.3 fl (35.1-43.9); Red Blood Count 3.87 M/mm3 (4.6-6.2); White Blood Count 5.1 K/mm3 (4.4-11.0)
[2020-12-05 11:09] LABS: Anion Gap 6 (5-15); BUN 20 mg/dL (7-18); BUN/Creat Ratio 17.2 RATIO (10-20); Calcium,Total 8.8 mg/dL (8.5-10.1); Chloride 105 mmol/L (98-107); Creatinine, Serum 1.16 mg/dL (0.70-1.30); EST Glomerular Filtration Rate 64 mL/min (>60); Est Glom Filt Rate - Afr Amer 77 mL/min (>60); Estimated Creatinine Clearance 48.95 ml/min; Glucose 158 mg/dL (74-106); Potassium 4.1 mmol/L (3.5-5.1); Sodium Level 139 mmol/L (136-145)
[2020-12-05] MEDS: Lidocaine Jelly 2% 20 ML Syringe (URO-JET) 20 APPLIC TOPICAL (11:45)
[2020-12-05] MEDS: Acetaminophen 500 MG Tablet 1000 MG PO (12:30)
--- NOTE | 2020-12-05 12:55 | PCM.HP.STD ---
HPI - General General Date of Admission: 12/05/20 Chief Complaint: Hematuria - 3 days HPI Narrative FLEX GARCIA, is a 85 M who presents gross hematuria that was noted over the last 3 days. Patient has had multiple admissions in the past 1 month. He has history of BPH and has been following with Dr. Sahu. Patient has a Medley catheter which was recently placed and has had a change 3 times on account of urine retention from blood clots. Patient has a planned TURP on 12/16/20. He was recently admitted and discharged on 1 when he presented for chest pain. Repeat cardiac catheterization on 11/19/20 showed a patent left main stent, subtotal occluded LAD, left circumflex with patent stent and moderate in-stent stenosis, dominant RCA with a patent stent and ostium of the PAD with 40 to 50% stenosis. Continued medical therapy was recommended by cardiology. His metoprolol was increased and he was started on Imdur. Patient stated that since the start of hematuria over the last 3 days, he has stopped to take his Plavix and aspirin. He denies any chest pain, dizziness, palpitations. He complains of lower abdominal discomfort, frequency and strangury. His blood pressure in the ED has been stable. His hemoglobin is stable at 10.9, BMP is stable compared to previous, creatinine is 1.16 PFS Medical History Atherosclerosis of coronary artery of [place] heart with angina pectoris Carotid artery disease Chronic systolic (congestive) heart failure DDD (degenerative disc disease) Essential (primary) hypertension GERD (gastroesophageal reflux disease) Hiatal hernia History of non-ST elevation myocardial infarction (NSTEMI) (11/19/20) HLD (hyperlipidemia) Ischemic cardiomyopathy Left carotid artery stenosis Nonsustained ventricular tachycardia 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 infarction Polycythemia Segmental and somatic dysfunction of pelvic region Segmental and somatic dysfunction of thoracic region Home Medications aspirin 81 mg PO DAILY@0800 07/11/13 [History Last Taken 08/12/19] pantoprazole 40 mg PO DAILY 10/29/16 [History Last Taken 08/13/19] clopidogrel 75 mg PO DAILY 04/20/18 [History Last Taken 08/13/19] testosterone 20.25 mg/1.25 gram (1.62 %) transdermal gel pump 1 pump TOPICAL DAILY #150 g 04/06/20 [Rx Last Taken Unknown] nitroglycerin 0.4 mg sublingual tablet 0.4 mg SUBLINGUAL Q5-15M PRN #25 tab 07/22/20 [Rx Last Taken Unknown] amlodipine 2.5 mg tablet 2.5 mg PO DAILY #90 tab 09/10/20 [Rx Last Taken Unknown] doxycycline hyclate 100 mg PO BID 11/19/20 [History Last Taken Unknown] prednisone 40 mg PO DAILY 11/19/20 [History Last Taken Unknown] isosorbide dinitrate 10 mg PO TID #90 tablet 11/20/20 [Rx Last Taken Unknown] metoprolol succinate 50 mg PO DAILY #90 tablet 11/20/20 [Rx Last Taken Unknown] hydrocortisone-pramoxine 10 gm RC TID #30 foam 11/22/20 [Rx Last Taken Unknown] tamsulosin 0.4 mg PO DAILY #30 capsule 11/22/20 [Rx Last Taken Unknown] Allergy/AdvReac Type Severity Reaction Status Date / Time hydrochlorothiazide Allergy Severe Severe Verified 12/05/20 09:52 itching rash promethazine [From Phenergan] Allergy Other Verified 12/05/20 09:52 ranolazine [From Ranexa] AdvReac Severe Rash Verified 12/05/20 09:52 omeprazole AdvReac Unknown Verified 12/05/20 09:52 Phenothiazines AdvReac Unknown Verified 12/05/20 09:52 Ucilety-Ast-Iiv Reductase AdvReac myalgias Verified 12/05/20 09:52 Inhibitor PHENEGRANZOLE AdvReac Unknown Uncoded 12/05/20 09:52 Family History Father , Age 37 from [place] CAD (coronary artery disease) Myocardial infarction Sudden cardiac Mother , age 96 Diabetes Surgical History History of coronary artery stent placement (09/16/19) History of electrophysiologic study (2009) History of implantable cardiac defibrillator (ICD) (05/17/10) History of intraocular lens implant History of left heart catheterization (11/19/20) Social History (Updated 09/09/20 @ 14:08 by Allegra BAILEY, PA) Smoking Status: Never smoker alcohol intake: never substance use type: does not use caffeine: Yes Type: carbonated beverages Number of servings: 1 and coffee Number of servings: 1 what type of physical activity do you participate in: none ROS ROS Narrative Constitutional: Reports: Malaise, Weakness, Fatigue. Denies: Anorexia, Chills, Fever, Night Sweats, Weight Change Eyes: Denies: Blurred vision, Cataracts, Conjunctivae Inflammation, Pain, Redness, Vision Change HEENT: Denies: Difficulty Hearing, Difficulty Swallowing, Head Aches, Hearing Changes, Sinus Congestion, Sinus Drainage Cardiovascular: Denies: Chest Pain, Orthopnea, Palpitations Respiratory: Denies: Cough, Shortness of breath at rest, Sputum production Gastrointestinal: Denies: Abdominal Pain, Nausea, Vomiting Genitourinary: see HPI Musculoskeletal: Denies: Joint Pain, Joint stiffness, Joint swelling, Joint Tenderness Skin: Denies: Rash, Wounds Neurological: Denies: Numbness, Tingling, Focal weakness Vital Signs Vital Signs Vital Signs: 12/05/20 09:53 Temperature 97.6 F L Temperature Source Temporal Pulse Rate 79 Respiratory Rate 16 Blood Pressure 143/80 H Blood Pressure Mean 101 Pulse Ox 97 Oxygen Delivery Method Room Air Physical Exam Narrative Physical exam: General: Alert, Oriented x3, Cooperative, in some pain from urine retention, well developed HEENT: Atraumatic Oral: Moist Mucosa Neck: Supple Lungs: Clear to auscultation Cardiovascular: HS I+II, regular, no murmurs Abdomen: Bowel Sounds Present, Soft, Non Tender Extremities: No edema Skin: No rashes, No breakdown Neurological: Grossly intact Psych/Mental Status: Appropriate Lab / Micro Data Result Diagrams: 12/05/20 Unknown 12/05/20 Unknown Labs: Laboratory Results - last 24 hr 12/05/20 12/05/20 Unknown Unknown WBC 5.1 RBC 3.87 L Hgb 11.4 L Hct 35.9 L MCV 92.8 MCH 29.5 MCHC 31.8 L RDW Std Deviation 47.3 H RDW Coeff of Dane 14.0 Plt Count 184 MPV 13.0 H Immature Gran % (Auto) 0.400 Neut % (Auto) 76.2 H Lymph % (Auto) 14.7 L [place] % (Auto) 5.7 Eos % (Auto) 2.4 Baso % (Auto) 0.6 Absolute Neuts (auto) 3.9 Absolute Lymphs (auto) 0.75 L Nucleated RBC % 0 Sodium 139 Potassium 4.1 Chloride 105 Carbon Dioxide 28.0 Anion Gap 6 BUN 20 H Creatinine 1.16 Estim Creat Clear Calc 48.95 Est GFR (MDRD) Af Amer 77 Est GFR (MDRD) Non-Af 64 BUN/Creatinine Ratio 17.2 Glucose 158 H Calcium 8.8 Assessment & Plan Assessment/Plan (1) Hematuria: Status: Acute Code(s): R31.9 - Hematuria, unspecified (2) Anemia: Status: Acute Code(s): D64.9 - Anemia, unspecified (3) Urine retention: Status: Acute Code(s): R33.9 - Retention of urine, unspecified Plan: Status post recent Medley catheter, started on continuous bladder irrigation, urine bag has gross hematuria Start on empiric IV ceftriaxone Urology consulted from the emergency department We will give morphine 1 mg IV x1 for pain Continue to hold aspirin and Plavix; patient started to hold them for the past 3 days Recent cardiac catheterization on 11/19/20 shows no new stenosis, medical management recommended Continue on gentle IV fluids, H&H every 12 Repeat blood work in a.m. Rest of his chronic medical problems as stable -home amlodipine, isosorbide, metoprolol, prednisone, pantoprazole
[2020-12-05 13:11] VITALS: BP 138/83; PULSE 78; RESP 16; TEMP 36.6; O2SAT 98
--- NOTE | 2020-12-05 13:12 | NURSING ---
text sent to ER charge nurse, [phone] amna dial to come up
[2020-12-05 14:42] VITALS: BMI 24.3
[2020-12-05 15:00] VITALS: BP 128/57; PULSE 63; RESP 16; TEMP 36.6; O2SAT 98
[2020-12-05] MEDS: Isosorbide DN 10 MG Tablet PO ×2 (15:10→22:25)
[2020-12-05 15:16] VITALS: PULSE 60
[2020-12-05 16:26] LABS: Hematocrit 33.5 % (40-54); Hemoglobin 10.9 g/dL (13.0-16.5)
[2020-12-05] MEDS: Morphine 2 MG/ML Syringe 1 MG IV ×2 (16:37→22:26)
[2020-12-05] MEDS: 0.9% Normal Saline 1,000 ML 75 ML IV (16:38)
--- NOTE | 2020-12-05 19:53 | CON.PCM.UR_ITS ---
Assessment & Plan Assessment/Plan (1) Urine retention: Status: Acute Code(s): R33.9 - Retention of urine, unspecified Plan: Continue with Medley catheter for retention of urine he is on the schedule in about a week and a half for TURP. (2) Hematuria: Status: Acute Code(s): R31.9 - Hematuria, unspecified Plan: Continue with irrigation slow continuous bladder irrigation until urine is clear looks like it is clearing very rapidly hopefully by tomorrow we can stop the irrigation and then just go with observation. HPI Consult Data Date of Consult: 12/05/20 HPI Narrative HPI Narrative: FLEX GARCIA, is a 85 M who presents to the hospital with gross hematuria, I see him in the office for with tension of urine at that point we will put a catheter in and I had instructed him to stop his aspirin we did do a cystoscopy demonstrated large obstructive prostate and we are planning for a transurethral resection of the prostate for urinary retention. He then presented to the hospital with bleeding from the catheter catheter was changed but still was bleeding too much so than the emergency room put in a 22 Kiny[place]wanda three-way catheter at this point is on continuous irrigation in the urine is clearing. [facility] Medical History Atherosclerosis of coronary artery of [place] heart with angina pectoris Carotid artery disease Chronic systolic (congestive) heart failure DDD (degenerative disc disease) Essential (primary) hypertension GERD (gastroesophageal reflux disease) Hiatal hernia History of non-ST elevation myocardial infarction (NSTEMI) (11/19/20) HLD (hyperlipidemia) Ischemic cardiomyopathy Left carotid artery stenosis Nonsustained ventricular tachycardia 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 infarction Polycythemia Segmental and somatic dysfunction of pelvic region Segmental and somatic dysfunction of thoracic region Home Medications aspirin 81 mg PO DAILY@0800 07/11/13 [History Last Taken 08/12/19] pantoprazole 40 mg PO DAILY 10/29/16 [History Last Taken 08/13/19] clopidogrel 75 mg PO DAILY 04/20/18 [History Last Taken 08/13/19] testosterone 20.25 mg/1.25 gram (1.62 %) transdermal gel pump 1 pump TOPICAL DAILY #150 g 04/06/20 [Rx Last Taken Unknown] nitroglycerin 0.4 mg sublingual tablet 0.4 mg SUBLINGUAL Q5-15M PRN #25 tab 07/22/20 [Rx Last Taken Unknown] amlodipine 2.5 mg tablet 2.5 mg PO DAILY #90 tab 09/10/20 [Rx Last Taken Unknown] doxycycline hyclate 100 mg PO BID 11/19/20 [History Last Taken Unknown] prednisone 40 mg PO DAILY 11/19/20 [History Last Taken Unknown] isosorbide dinitrate 10 mg PO TID #90 tablet 11/20/20 [Rx Last Taken Unknown] metoprolol succinate 50 mg PO DAILY #90 tablet 11/20/20 [Rx Last Taken Unknown] hydrocortisone-pramoxine 10 gm RC TID #30 foam 11/22/20 [Rx Last Taken Unknown] tamsulosin 0.4 mg PO DAILY #30 capsule 11/22/20 [Rx Last Taken Unknown] Allergy/AdvReac Type Severity Reaction Status Date / Time hydrochlorothiazide Allergy Severe Severe Verified 12/05/20 09:52 itching rash promethazine [From Phenergan] Allergy Other Verified 12/05/20 09:52 ranolazine [From Ranexa] AdvReac Severe Rash Verified 12/05/20 09:52 omeprazole AdvReac Unknown Verified 12/05/20 09:52 Phenothiazines AdvReac Unknown Verified 12/05/20 09:52 Nknkamn-Cgu-Hdq Reductase AdvReac myalgias Verified 12/05/20 09:52 Inhibitor PHENEGRANZOLE AdvReac Unknown Uncoded 12/05/20 09:52 Family History Father , Age 37 from [place] CAD (coronary artery disease) Myocardial infarction Sudden cardiac Mother , age 96 Diabetes Surgical History History of coronary artery stent placement (09/16/19) History of electrophysiologic study (2009) History of implantable cardiac defibrillator (ICD) (05/17/10) History of intraocular lens implant History of left heart catheterization (11/19/20) Social History (Updated 09/09/20 @ 14:08 by Allegra BAILEY, PA) Smoking Status: Never smoker alcohol intake: never substance use type: does not use caffeine: Yes Type: carbonated beverages Number of servings: 1 and coffee Number of servings: 1 what type of physical activity do you participate in: none ROS Constitutional Constitutional: Denies chills, fever(s) or malaise Eyes Eyes: Denies blurry vision or change in vision ENT HEENT: Reports none Cardiovascular Cardiovascular: Denies chest pain or palpitations Respiratory/Chest Respiratory/Chest: Denies cough or shortness of breath with exertion Gastrointestinal Gastrointestinal: Denies abdominal pain, constipation or diarrhea Genitourinary Genitourinary: Reports as per HPI and hematuria Musculoskeletal Musculoskeletal: Denies back pain, joint stiffness or joint swelling Integumentary Integumentary: Denies dry skin, jaundice, lesions or rash Neurologic Neurologic: Denies confusion, syncope or weakness Psychiatric Psychiatric: Reports none; Denies anxiety or depression Endocrine Endocrinology: Denies excessive sweating, fatigue or flushing Hematologic/Lymphatic Hematologic/Lymphatic: Denies anemia, easy bleeding or easy bruising Physical Exam Const alert and oriented x3 General Appearance: cooperative HEENT normocephalic, head/scalp atraumatic, EAC's normal and TM's normal bilaterally Eyes PERRL and EOMs intact bilaterally Pupil: sluggish Neck no lymphadenopathy, supple and no JVD General: trachea midline Lymph Lymphatic: no lymphadenopathy noted, lymphedema and lymphadenopathy Resp normal respiratory effort, normal air movement and clear to auscultation bilaterally Cardio regular rate, regular rhythm and peripheral pulses 2+ throughout GI soft to palpation, non-tender and non-distended Extremity normal capillary refill and no clubbing, cyanosis or edema General Extremity: no tenderness to palpation of joints or extremities Skin no rashes or lesions noted General Skin Exam: turgor normal Lesions: no lesions Rashes: no rashes Neuro CN's II-XII intact bilaterally Speech: speech normal Motor Exam: strength 5/5 throughout; Negative for general weakness Psych thought process normal, cooperative and affect normal Appearance: appropriate Lab / Micro Data Result Diagrams: 12/05/20 Unknown 12/05/20 Unknown Labs: Laboratory Results - last 24 hr 12/05/20 12/05/20 12/05/20 16:15 Unknown Unknown WBC 5.1 RBC 3.87 L Hgb 10.9 L 11.4 L Hct 33.5 L 35.9 L MCV 92.8 MCH 29.5 MCHC 31.8 L RDW Std Deviation 47.3 H RDW Coeff of Dane 14.0 Plt Count 184 MPV 13.0 H Immature Gran % (Auto) 0.400 Neut % (Auto) 76.2 H Lymph % (Auto) 14.7 L [place] % (Auto) 5.7 Eos % (Auto) 2.4 Baso % (Auto) 0.6 Absolute Neuts (auto) 3.9 Absolute Lymphs (auto) 0.75 L Nucleated RBC % 0 Sodium 139 Potassium 4.1 Chloride 105 Carbon Dioxide 28.0 Anion Gap 6 BUN 20 H Creatinine 1.16 Estim Creat Clear Calc 48.95 Est GFR (MDRD) Af Amer 77 Est GFR (MDRD) Non-Af 64 BUN/Creatinine Ratio 17.2 Glucose 158 H Calcium 8.8
[2020-12-05 20:23] VITALS: BP 131/65; PULSE 68; RESP 18; TEMP 36.5; O2SAT 97
[2020-12-05] MEDS: 0.9% Saline Lock 10 ML Syringe IV (22:25)
[2020-12-05] MEDS: Senna/Docusate Sodium 1 Tablet 2 TABLET PO (22:25)
[2020-12-06] MEDS: MELATONIN 10 MG TABLET 5 MG PO (01:30)
[2020-12-06 01:32] VITALS: BP 131/74; PULSE 78; RESP 18; TEMP 36.7; O2SAT 96
[2020-12-06 05:11] VITALS: BP 130/72; PULSE 74; RESP 18; TEMP 36.9; O2SAT 96
[2020-12-06] MEDS: 0.9% Normal Saline 1,000 ML 75 ML IV (05:16)
[2020-12-06] MEDS: Isosorbide DN 10 MG Tablet PO ×2 (05:16→14:01)
[2020-12-06 07:47] VITALS: BP 127/66; PULSE 72; RESP 16; TEMP 36.7; O2SAT 94
[2020-12-06 07:51] VITALS: PULSE 72
[2020-12-06] MEDS: Pantoprazole Sodium 40 MG Tablet PO (07:51)
[2020-12-06] MEDS: Metoprolol(XL)Succ 50 MG Tablet PO (07:51)
[2020-12-06] MEDS: amLODIPine 2.5 MG Tablet PO (07:51)
[2020-12-06] MEDS: Tamsulosin HCl 0.4 MG Capsule PO (07:51)
[2020-12-06] MEDS: predniSONE 20 MG Tablet 40 MG PO (07:52)
--- NOTE | 2020-12-06 09:45 | NURSING ---
CBI stopped as per order Dr Harding.
--- NOTE | 2020-12-06 10:03 | PCM.DC.SUM ---
Providers Date of Admission: 12/05/20 Primary Care Physician: Dr. Jacques Pena MD Consultations 12/05/20 15:31 Consult: Urology Routine Consulting Provider: Tai Urologarnaud Reason for Consult: Hematuria EMERGENT Consult: No MD Notified: Yes Date Notified:: 12/05/20 Time Notified: 12:53 Method of Notification: Verbal Reason For Visit: HEMATURIA Diagnosis Discharge Diagnosis (1) Urine retention: Status: Acute Code(s): R33.9 - Retention of urine, unspecified (2) Hematuria: Status: Acute Code(s): R31.9 - Hematuria, unspecified (3) Acute blood loss anemia: Status: Acute Code(s): D62 - Acute posthemorrhagic anemia Plan: Present on admission Medications at Discharge Home Medications pantoprazole 40 mg PO DAILY 10/29/16 testosterone 20.25 mg/1.25 gram (1.62 %) transdermal gel pump 1 pump TOPICAL DAILY #150 g 04/06/20 nitroglycerin 0.4 mg sublingual tablet 0.4 mg SUBLINGUAL Q5-15M PRN #25 tab 07/22/20 amlodipine 2.5 mg tablet 2.5 mg PO DAILY #90 tab 09/10/20 isosorbide dinitrate 10 mg PO TID #90 tablet 11/20/20 metoprolol succinate 50 mg PO DAILY #90 tablet 11/20/20 hydrocortisone-pramoxine 10 gm RC TID #30 foam 11/22/20 tamsulosin 0.4 mg PO DAILY #30 capsule 11/22/20 melatonin 5 mg PO QHS 12/06/20 Hospital Course Operations None Procedures None Summary of Care Provided Minutes Spent on Discharge: 45 Hospital Course: 85-year-old male with multiple comorbidities including CAD status post stents who was recently discharged on 11/20/20 with chest pain in which he had a cardiac cath done that showed patent vessels and medical management was recommended. Patient overall has in the last couple of days been battling with urine retention and gross hematuria. He has been following with urology. He had a indwelling Medley catheter placed. Patient presented to the emergency room with gross hematuria ongoing for about 3 days. This was associated with lower abdominal discomfort. He was found to be in acute clot retention and continuous bladder irrigation was started from the ED. He was admitted for monitoring. Patient continued to be stable. He was seen by urology. His hemoglobin appears stable. He was continued off aspirin and Plavix. Hemoglobin at discharge was 11.4, down from 13.8. He was discharged with a Medley catheter and would follow-up with the primary in the outpatient. He has scheduled TURP and cystoscopy planned for 12/16/20 Physical Exam Narrative On the day of discharge, patient was seen and examined. Physical exam: General: Alert, Oriented x3, Cooperative,Appears comfortable HEENT: Atraumatic Oral: Moist Mucosa Neck: Supple Lungs: Clear to auscultation Cardiovascular: HS I+II, regular, no murmurs Abdomen: Bowel Sounds Present, Soft, Non Tender, chronic Medley catheter; urine is clear with a tinge of pink Extremities: No edema Skin: No rashes, No breakdown Neurological: Grossly intact Psych/Mental Status: Appropriate ABG / Lab / Microbiology Data Result Diagrams: 12/05/20 Unknown 12/05/20 Unknown Laboratory: Laboratory Results - last 24 hr 12/05/20 12/05/20 12/05/20 16:15 Unknown Unknown WBC 5.1 RBC 3.87 L Hgb 10.9 L 11.4 L Hct 33.5 L 35.9 L MCV 92.8 MCH 29.5 MCHC 31.8 L RDW Std Deviation 47.3 H RDW Coeff of Dane 14.0 Plt Count 184 MPV 13.0 H Immature Gran % (Auto) 0.400 Neut % (Auto) 76.2 H Lymph % (Auto) 14.7 L [place] % (Auto) 5.7 Eos % (Auto) 2.4 Baso % (Auto) 0.6 Absolute Neuts (auto) 3.9 Absolute Lymphs (auto) 0.75 L Nucleated RBC % 0 Sodium 139 Potassium 4.1 Chloride 105 Carbon Dioxide 28.0 Anion Gap 6 BUN 20 H Creatinine 1.16 Estim Creat Clear Calc 48.95 Est GFR (MDRD) Af Amer 77 Est GFR (MDRD) Non-Af 64 BUN/Creatinine Ratio 17.2 Glucose 158 H Calcium 8.8 D/C Instructions Discharge Diet: Low fat / Low cholesterol, 6 Cup Fluid Restriction and 2000 mg Sodium Diet Discharge Activity: Return to Normal Activity Meaningful Use Info Meaningful Use Diagnoses (Choose all that apply): None applicable Discharge Plan Admission Admit Date/Time: 12/05/20 12:49 Primary Reason for Your Visit: Hematuria Attending Provider: Evangelina Harding Primary Care Provider: Jacques Pena Chi Consulting Providers: Sanchez Sahu Instructions Additional Instructions / Restrictions: Continue to monitor your urine output through the Medley catheter. Follow-up with Dr. Young within a week. Continue to monitor for signs or chest pain as you remain off aspirin and Plavix. You will need repeat blood work to check on your blood counts for anemia in a week. Discharge Orders/Prescriptions Prescriptions: Continued nitroglycerin 0.4 mg tablet, sublingual 0.4 mg SUBLINGUAL Q5-15M PRN (Reason: chest pain) Qty: 25 RF: 3 pantoprazole 40 MG tablet 40 mg PO DAILY RF: 0 isosorbide dinitrate 10 MG tablet 10 mg PO TID Qty: 90 RF: 1 metoprolol succinate 100 mg tablet extended release 24 hr 50 mg PO DAILY Qty: 90 RF: 4 hydrocortisone-pramoxine 10 GM foam 10 gm RC TID Qty: 30 RF: 0 tamsulosin 0.4 MG capsule 0.4 mg PO DAILY Qty: 30 RF: 0 melatonin 5 mg Tablet 5 mg PO QHS RF: 0 testosterone 20.25 mg/1.25 gram (1.62 %) gel in metered-dose pump 1 pump TOPICAL DAILY Qty: 150 RF: 5 amlodipine 2.5 mg tablet 2.5 mg PO DAILY Qty: 90 RF: 3 Discontinued aspirin 81 MG tablet 81 mg PO DAILY@0800 RF: 0 clopidogrel 75 MG tablet 75 mg PO DAILY RF: 0 prednisone 10 MG tablet 40 mg PO DAILY RF: 0 doxycycline hyclate 100 MG capsule 100 mg PO BID RF: 0 Referrals: Sanchez Sahu MD [STAFF PHYSICIAN] - In 1 Week Jacques Pena Chi, MD [Primary Care Provider] - Within 2 Weeks Disposition Patient Disposition: Home, self care Visit Charges OBSV E&M: 19141 Observation care discharge
[2020-12-06] MEDS: Furosemide 20 MG/2 ML VIAL IV (10:49)
[2020-12-06] MEDS: 0.9% Saline Lock 10 ML Syringe IV (10:49)
[2020-12-06 10:50] VITALS: BP 121/64; PULSE 72
[2020-12-06 13:52] VITALS: BP 115/61; PULSE 75; RESP 16; TEMP 36.7; O2SAT 95
== END 2020-12-06 15:40 | disposition home or self-care (01) ==
LOC: ED 11:48 → MS3 15:39
PROVIDERS: Admitting Provider Internal Medicine; Emergency Provider Emergency Medicine; PCP Family Medicine Geriatric Medicine; Visit Provider Internal Medicine
DX: R31.0 Gross hematuria (principal); R33.8 Other retention of urine; N40.1 Benign prostatic hyperplasia with lower urinary tract symptoms; K21.9 Gastro-esophageal reflux disease without esophagitis; I50.22 Chronic systolic (congestive) heart failure; I11.0 Hypertensive heart disease with heart failure; I25.10 Atherosclerotic heart disease of native coronary artery without angina pectoris; I25.2 Old myocardial infarction; K44.9 Diaphragmatic hernia without obstruction or gangrene; I25.5 Ischemic cardiomyopathy; D62 Acute posthemorrhagic anemia; M99.05 Segmental and somatic dysfunction of pelvic region; M99.02 Segmental and somatic dysfunction of thoracic region; E78.5 Hyperlipidemia, unspecified; Z79.02 Long term (current) use of antithrombotics/antiplatelets; Z95.5 Presence of coronary angioplasty implant and graft; Z79.82 Long term (current) use of aspirin; Z79.899 Other long term (current) drug therapy; Z79.52 Long term (current) use of systemic steroids
CPT/HCPCS: 36415; 51702; 80048; 85014; 85018; 85025; 96361; 96374; 96375; 96376; 97802; 99285; J7030; A4216; J1940

== ENCOUNTER → 2020-12-09 11:05 | Outpatient (CLI) | payer MEDICARE, OTHER, SELFPAY ==
[2020-04-02 11:50] VITALS: BMI 26.2
[2020-12-05 14:42] VITALS: BMI 24.3
[2020-12-09 11:54] LABS: Absolute Lymphocyte Count 1.19 X10^3/uL (0.83-4.51); Absolute Neutrophil Count 5.4 X10^3/uL (2.0-7.7); Basophil# 0.05 X10^3/uL; Basophil% 0.7 % (0-1); Eosinophil# 0.18 X10^3/uL; Eosinophils% 2.5 % (0-5); Hematocrit 37.4 % (40-54); Hemoglobin 11.7 g/dL (13.0-16.5); Lymphocyte # 1.19 X10^3/ul (0.83-4.51); Lymphocyte % 16.6 % (19-41); Mean Corp Hgb Conc 31.3 g/dL (32-36); Mean Corpuscular Hgb 29.1 pg (27.0-32.0); Monocyte# 0.38 X10^3/uL; Monocyte% 5.3 % (0-10); NRBC Flagged by Analyzer 0 % (0-5); Neutrophil # 5.35 X10^3/uL (2.7-7.7); Neutrophil % 74.6 % (47-70); Platelet Count 200 K/mm3 (150-450); RBC Distribution Width CV 14.3 % (11.6-14.6); RBC Distribution Width SD 48.4 fl (35.1-43.9); Red Blood Count 4.02 M/mm3 (4.6-6.2); White Blood Count 7.2 K/mm3 (4.4-11.0)
== END ==
PROVIDERS: PCP Family Medicine Geriatric Medicine; Visit Provider Family Medicine Geriatric Medicine
DX: I10 Essential (primary) hypertension (principal)
CPT/HCPCS: 36415; 85025

== ENCOUNTER 2020-12-16 12:28 | Day surgery (SDC) | payer MEDICARE, OTHER, SELFPAY ==
[2020-04-02 11:50] VITALS: BMI 26.2
--- NOTE | 2020-12-10 13:52 | NURSING ---
pt states he received the second Moderna Vaccine 10/02/20
[2020-12-10 15:28] LABS: AST(SGOT) 8 U/L (15-37); Alanine Aminotransfer ALT/SGPT 14 U/L (16-61); Albumin, Serum 3.4 g/dL (3.2-5.0); Alkaline Phosphatase 82 U/L (45-117); Bilirubin, Direct 0.13 mg/dL (0.00-0.30); Globulin 3.3 g/dL (2.2-4.2); Protein, Total 6.7 g/dL (6.4-8.2)
[2020-12-10 15:34] LABS: International Normalized Ratio 1.1; Prothrombin Time (Protime)PT. 13.3 SECONDS (11.7-14.9)
[2020-12-16] VITALS (13 sets, daily range): BP systolic 123–146; BP diastolic 55–82; PULSE 60–72; RESP 16–17; TEMP 35.9–36.8; O2SAT 92–100; BMI 25.7
[2020-12-16] MEDS: Lactated Ringers 1,000 ML 100 ML IV ×2 (12:45→14:57)
--- NOTE | 2020-12-16 13:25 | PROS_PTH ---
PATIENT: FLEX [place]ARC[place] [facility] [facility] [id number] AGE/SX: 85/M ROOM: RE12/16/[address]: Dr. Sanchez Sahu MD : [id number] BED: DIS: 12/17/2020 SPEC #: [id number] RECD: 12/16/20 15:00 STATUS: BRIDGETT WILLIAMSON #: [id number] SWAPNA: 12/16/20 13:[address]: Sanchez Sahu DEPT: SURGICAL PATHOLOGY RECD BY: Connie Dumont ENTERED: 12/17/20 10:23 SP TYPE: TURP OTHR DR: Dr. Jacques Pena MD Tissues: Prostate, NOS Procedures: Surgery Specimen Level IV HEADER OPERATION: Cysto, TUR prostate, Olympus PRE-OP DIAGNOSIS: BPH with obstruction TISSUE SUBMITTED: Prostate pieces MICROSCOPIC DIAGNOSIS Prostate pieces, TUR: Benign prostatic hyperplasia, glandular and stromal type. Focal chronic inflammation. SJ:marie 12/18/2020 MICROSCOPIC DESCRIPTION Slides are reviewed. GROSS DESCRIPTION Received is one container labeled with the patient's name and designated prostate pieces. The specimen consists of multiple irregular fragments of pink-post, rubbery, soft tissue that in aggregate weigh 2.9 gm and measure in aggregate 6 x 3 x 0.3 cm. The entire specimen is submitted in three cassettes. / JOHN PAUL:marie 12/17/20 TC:5 CPT: 35748
--- NOTE | 2020-12-16 13:27 | PCM.HP.STD ---
HPI - General HPI Narrative FLEX GARCIA, is a 85 M who presents with retention of urine he is get a Medley catheter in place plan to proceed with transurethral resection of the prostate [facility] Medical History (Updated 12/16/20 @ 13:[address] 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 Bruising Cancer Carotid artery disease Chronic indwelling Medley catheter Chronic systolic (congestive) heart failure DDD (degenerative disc disease) Essential (primary) hypertension GERD (gastroesophageal reflux disease) GERD (gastroesophageal reflux disease) Hiatal hernia History of non-ST elevation myocardial infarction (NSTEMI) (11/19/20) HLD (hyperlipidemia) Hypertension Ischemic cardiomyopathy Left carotid artery stenosis Myocardial infarct Non-smoker Nonsustained ventricular tachycardia 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 infarction Polycythemia Segmental and somatic dysfunction of pelvic region Segmental and somatic dysfunction of thoracic region Shortness of breath on exertion Sinus drainage TIA (transient ischemic attack) Wears dentures Wears glasses Home Medications pantoprazole 40 mg PO DAILY 10/29/16 [History Last Taken 08/13/19] testosterone 20.25 mg/1.25 gram (1.62 %) transdermal gel pump 1 pump TOPICAL DAILY #150 g 04/06/20 [Rx Last Taken Unknown] nitroglycerin 0.4 mg sublingual tablet 0.4 mg SUBLINGUAL Q5-15M PRN #25 tab 07/22/20 [Rx Last Taken Unknown] melatonin 5 mg PO QHS 12/06/20 [History Last Taken Unknown] acetaminophen 325 mg PO Q6H PRN 12/10/20 [History Last Taken Unknown] alendronate 5 mg PO DAILY 12/10/20 [History Last Taken Unknown] amlodipine 2.5 mg PO DAILY 12/10/20 [History Last Taken Unknown] aspirin 81 mg PO DAILY 12/10/20 [History Last Taken 11/30/20 08:00] clopidogrel [Plavix] 75 mg PO DAILY 12/10/20 [History Last Taken 11/30/20] isosorbide dinitrate 10 mg PO TID 12/10/20 [History Last Taken Unknown] metoprolol succinate 50 mg PO DAILY 12/10/20 [History Last Taken Unknown] tamsulosin 0.4 mg PO DAILY 12/10/20 [History Last Taken Unknown] ciprofloxacin HCl [Cipro] 500 mg PO BID #14 tab 12/16/20 [Rx Last Taken Unknown] Allergy/AdvReac Type Severity Reaction Status Date / Time hydrochlorothiazide Allergy Severe Severe Verified 12/10/20 13:05 itching rash promethazine [From Phenergan] Allergy Other Verified 12/10/20 13:05 ranolazine [From Ranexa] AdvReac Severe Rash Verified 12/10/20 13:05 omeprazole AdvReac Unknown Verified 12/10/20 13:05 Phenothiazines AdvReac Unknown Verified 12/10/20 13:05 Wxaonfu-Fwl-Vuw Reductase AdvReac myalgias Verified 12/10/20 13:05 Inhibitor PHENEGRANZOLE AdvReac Unknown Uncoded 12/10/20 13:05 Family History Father , Age 37 from [place] CAD (coronary artery disease) Myocardial infarction Sudden cardiac Mother , age 96 Diabetes Surgical History (Updated 12/10/20 @ 13:35 by Tatiana Gorman) History of appendectomy History of cataract surgery History of coronary artery stent placement (09/16/19) History of electrophysiologic study (2009) History of hernia repair History of implantable cardiac defibrillator (ICD) (05/17/10) History of intraocular lens implant History of left heart catheterization (11/19/20) History of transurethral resection of prostate Social History (Updated 09/09/20 @ 14:08 by Allegra BAILEY, PA) Smoking Status: Never smoker alcohol intake: never substance use type: does not use caffeine: Yes Type: carbonated beverages Number of servings: 1 and coffee Number of servings: 1 what type of physical activity do you participate in: none Vital Signs Vital Signs Vital Signs: 12/16/20 12:30 12/16/20 12:45 Temperature 96.7 F L Temperature Source Temporal Pulse Rate 68 Respiratory Rate 16 Respiratory Pattern Normal Blood Pressure 143/76 H Blood Pressure Mean 98 Blood Pressure Source Monitor Blood Pressure Position Semi-Fowlers Blood Pressure Location Left Arm Pulse Ox 99 Oxygen Delivery Method Room Air Physical Exam Const alert and oriented x3 General Appearance: cooperative HEENT normocephalic, head/scalp atraumatic, EAC's normal and TM's normal bilaterally Eyes PERRL and EOMs intact bilaterally Pupil: sluggish Neck no lymphadenopathy, supple and no JVD General: trachea midline Lymph Lymphatic: no lymphadenopathy noted, lymphedema and lymphadenopathy Resp normal respiratory effort, normal air movement and clear to auscultation bilaterally Cardio regular rate, regular rhythm and peripheral pulses 2+ throughout GI soft to palpation, non-tender and non-distended Extremity normal capillary refill and no clubbing, cyanosis or edema General Extremity: no tenderness to palpation of joints or extremities Skin no rashes or lesions noted General Skin Exam: turgor normal Lesions: no lesions Rashes: no rashes Neuro CN's II-XII intact bilaterally Speech: speech normal Motor Exam: strength 5/5 throughout; Negative for general weakness Psych thought process normal, cooperative and affect normal Appearance: appropriate Assessment & Plan Assessment/Plan (1) BPH (benign prostatic hyperplasia): PLAN: Plan to proceed with transurethral resection of the prostate for retention of urine.
--- NOTE | 2020-12-16 13:28 | PCM.DC ---
Discharge Instructions Diet Discharge Diet: No restrictions Activity Discharge Activity: May not drive while taking narcotic pain medications. (for 3 days.) May shower in (days): 1 Dressing / Incision Call your doctor if your incision/area has: Continuous Slow Oozing, Increased Pain/ Swelling, Increased Redness and Foul Smelling Discharge Call your doctor if you observe: Fever of 101 or Higher, Numbness or Tingling, Shortness of breath, Dizziness, Calf discomfort and Uncontrolled pain Cleanse incision/area with: Keep Dressing Clean & Dry Follow Up Care Please Follow Up With: Sanchez Sahu MD When: Call [phone] for an appointment Test Results: Test results from this visit will be discussed in further detail at your follow-up appointment, if applicable. Discharge Plan Admission Primary Reason for Your Visit: TURP Attending Provider: Sanchez Sahu Primary Care Provider: Jacques Pena Chi Instructions Patient Instructions: Transurethral Resection of the Prostate (TURP): Home Recovery, ED Chest Pain, Noncardiac Discharge Orders/Prescriptions Prescriptions: New ciprofloxacin HCl [Cipro] 500 mg tablet 500 mg PO BID Qty: 14 RF: 0 Continued nitroglycerin 0.4 mg tablet, sublingual 0.4 mg SUBLINGUAL Q5-15M PRN (Reason: chest pain) Qty: 25 RF: 3 pantoprazole 40 MG tablet 40 mg PO DAILY RF: 0 alendronate 5 mg Tablet 5 mg PO DAILY RF: 0 acetaminophen 325 mg Capsule 325 mg PO Q6H PRN (Reason: Pain) RF: 0 isosorbide dinitrate 10 MG tablet 10 mg PO TID RF: 0 metoprolol succinate 100 mg tablet extended release 24 hr 50 mg PO DAILY RF: 0 amlodipine 2.5 mg tablet 2.5 mg PO DAILY RF: 0 tamsulosin 0.4 MG capsule 0.4 mg PO DAILY RF: 0 melatonin 5 mg Tablet 5 mg PO QHS RF: 0 testosterone 20.25 mg/1.25 gram (1.62 %) gel in metered-dose pump 1 pump TOPICAL DAILY Qty: 150 RF: 5 Held clopidogrel [Plavix] 75 mg Tablet 75 mg PO DAILY RF: 0 Hold Instructions: Resume on 12/30/20. aspirin 81 mg Tablet 81 mg PO DAILY RF: 0 Hold Instructions: Resume on 12/30/20. Referrals / Follow Up: Sanchez Sahu MD [STAFF PHYSICIAN] - Jacques Pena Chi, MD [Primary Care Provider] -
[2020-12-16] MEDS: Cefazolin 2 GM in 0.9% Normal Saline 100 ML IV (13:30)
--- NOTE | 2020-12-16 14:09 | PCM.OPRPT ---
Problems Associated Problem List Diagnoses (1) BPH (benign prostatic hyperplasia): Report of Operation Date of Procedure: 12/16/20 Pre-Operative Diagnosis: BPH with retention Post-Operative Diagnosis: Same Surgery/Procedure Performed:: Transurethral section of prostate Description of Surgical Findings:: In the preoperative setting I discussed with the patient how the surgery would be done with expect afterwards. We discussed how a prostate resection is done and we discussed the risk of the surgery including, bleeding, infection, retrograde ejaculation, changes with ejaculation or intercourse,. We discussed the possibility that the resection of the prostate may not alleviate his urinary symptoms. We discussed the small risk of developing scar tissue along the urethral channel and strictures. We also discussed the chance of the prostate could grow back and he may need further surgery or treatment in the future for prostate problems. Patient was taken back to the operating room, timeout procedure was performed, he was identified and marked and placed on the operating room table. He underwent general anesthesia. He was placed in dorsolithotomy position. Penis and testicles were prepped and draped in usual sterile fashion. Went into the bladder using the visual obturator with a resectoscope. Once inside the bladder identified the right and left ureteral orifice. I then identified the prostate and the anatomy of the prostate. I marked out the area of the sphincter and the verumontanum was identified. I then proceeded with the prostate resection first resected the median lobe. And then resected the right lobe of the prostate. Then to resect the left lobe of the prostate. I then resected the apical tissue of the prostate. Made sure that there was no injury to the sphincter or the verumontanum was still intact. At the end of the resection all the chips were Ellik out of the bladder. I then identified the left and right ureteral orifice and these were confirmed to be in good position and effluxing and not injured. The resectoscope was removed, a 22 Swedish catheter was placed into the bladder on continuous irrigation. And the urine was fairly light pink color and draining normally. He was taken back to the PACU in good condition. Drains: 22fr 3 way Admit VTE Documentation VTE Present on Admission: No VTE Mechan Device Prophylaxis: SCD's
[2020-12-16] MEDS: Tamsulosin HCl 0.4 MG Capsule PO (18:13)
[2020-12-16] MEDS: Ciprofloxacin 400 MG/200 ML BAG 200 MG IV (21:50)
[2020-12-16] MEDS: MELATONIN 10 MG TABLET 5 MG PO (21:50)
[2020-12-16] MEDS: Acetaminophen 325 MG Tablet PO (21:50)
[2020-12-16] MEDS: Isosorbide DN 10 MG Tablet PO (21:50)
[2020-12-17 01:19] VITALS: BP 108/53; PULSE 61; RESP 16; TEMP 36.8; O2SAT 96
[2020-12-17] MEDS: Lactated Ringers 1,000 ML 125 ML IV (01:23)
[2020-12-17 04:56] VITALS: BP 129/81; PULSE 90; RESP 16; TEMP 36.6; O2SAT 97
[2020-12-17] MEDS: Isosorbide DN 10 MG Tablet PO (05:06)
[2020-12-17] MEDS: Acetaminophen 325 MG Tablet PO (05:06)
[2020-12-17 07:53] VITALS: PULSE 69
[2020-12-17] MEDS: Metoprolol(XL)Succ 50 MG Tablet PO (07:53)
[2020-12-17] MEDS: amLODIPine 2.5 MG Tablet PO (07:54)
[2020-12-17] MEDS: Pantoprazole Sodium 40 MG Tablet PO (07:54)
[2020-12-17 08:10] VITALS: BP 116/62; PULSE 64; RESP 14; TEMP 36.6; O2SAT 100
[2020-12-17] MEDS: Ciprofloxacin 400 MG/200 ML BAG 200 MG IV (10:15)
--- NOTE | 2020-12-17 14:07 | PHA.DC.MC ---
Pharmacy Service has performed discharge medication reconciliation and counseling for this patient. The patient was counseled on the following discharge medications and changes in medications for homegoing were reviewed. 1. CIPRO The Reason for Use, instructions for use, and potential side effects were reviewed for all new medications. The patient's questions regarding all of their medications were answered. The patient was able to verbally demonstrate an understanding of their discharge medications. Home Medications pantoprazole 40 mg PO DAILY 10/29/16 testosterone 20.25 mg/1.25 gram (1.62 %) transdermal gel pump 1 pump TOPICAL DAILY #150 g 04/06/20 nitroglycerin 0.4 mg sublingual tablet 0.4 mg SUBLINGUAL Q5-15M PRN #25 tab 07/22/20 melatonin 5 mg PO QHS 12/06/20 acetaminophen 325 mg PO Q6H PRN 12/10/20 alendronate 5 mg PO DAILY 12/10/20 amlodipine 2.5 mg PO DAILY 12/10/20 aspirin 81 mg PO DAILY 12/10/20 clopidogrel [Plavix] 75 mg PO DAILY 12/10/20 isosorbide dinitrate 10 mg PO TID 12/10/20 metoprolol succinate 50 mg PO DAILY 12/10/20 tamsulosin 0.4 mg PO DAILY 12/10/20 ciprofloxacin HCl [Cipro] 500 mg PO BID #14 tab 12/16/20 The patient's discharge medication list was reviewed for discrepancies and discrepancies were resolved.
== END 2020-12-17 12:53 | disposition home or self-care (01) ==
LOC: SDC 12:31 → AC 12:34 → MS3 12-17 08:31 → AC 12-17 09:50 → MS3 12-17 09:50
PROVIDERS: Anesthesiology; PCP Family Medicine Geriatric Medicine; Referring Provider Urology; Visit Provider Urology
PROC: (CPT 52601; principal; 2020-12-16 13:15)
DX: N40.1 Benign prostatic hyperplasia with lower urinary tract symptoms (principal); R33.8 Other retention of urine; I25.10 Atherosclerotic heart disease of native coronary artery without angina pectoris; I11.0 Hypertensive heart disease with heart failure; I50.22 Chronic systolic (congestive) heart failure; K21.9 Gastro-esophageal reflux disease without esophagitis; I25.2 Old myocardial infarction; K44.9 Diaphragmatic hernia without obstruction or gangrene; I25.5 Ischemic cardiomyopathy; M99.05 Segmental and somatic dysfunction of pelvic region; M99.02 Segmental and somatic dysfunction of thoracic region; Z79.899 Other long term (current) drug therapy; Z79.02 Long term (current) use of antithrombotics/antiplatelets; Z79.82 Long term (current) use of aspirin
CPT/HCPCS: 52601; 36415; 80076; 85610; 85730; 88305; J7120; J0744

== ENCOUNTER 2020-12-20 07:27 | Inpatient (IN) | payer MEDICARE, OTHER, SELFPAY ==
[2020-04-02 11:50] VITALS: BMI 26.2
[2020-12-16 17:37] VITALS: BMI 25.7
[2020-12-20] VITALS (25 sets, daily range): BP systolic 106–135; BP diastolic 50–92; PULSE 66–141; RESP 14–26; TEMP 35.8–36.9; O2SAT 93–100; BMI 24.3; BMI 25.8
--- NOTE | 2020-12-20 07:29 | EKG12_ITS ---
Test Reason : TACHY Blood Pressure : / mmHG Vent. Rate : 137 BPM Atrial Rate : 150 BPM P-R Int : 000 ms QRS Dur : 150 ms QT Int : 290 ms P-R-T Axes : 000 -41 140 degrees QTc Int : 437 ms Suspect unspecified pacemaker failure Atrial fibrillation with ventricular pacing Left axis deviation Left bundle branch block Abnormal ECG Confirmed by JENNIFER ROCHA, JESSE ([id number]), instrument panel assembler BITA ROBB ([id number]) on 12/22/2020 9:15:07 AM Referred By: ASHLEY Confirmed By:JESSE RODRIGUEZ MD
[2020-12-20] MEDS: Ondansetron 4 MG/2 ML Vial IV (07:41)
[2020-12-20] MEDS: dilTIAZem 25 MG/5 ML Vial 20 MG IV BOLUS (07:41)
[2020-12-20 07:44] LABS: Absolute Lymphocyte Count 1.55 X10^3/uL (0.83-4.51); Basophil# 0.03 X10^3/uL; Basophil% 0.5 % (0-1); Eosinophil# 0.39 X10^3/uL; Eosinophils% 6.1 % (0-5); Hematocrit 35.6 % (40-54); Hemoglobin 11.4 g/dL (13.0-16.5); Lymphocyte # 1.55 X10^3/ul (0.83-4.51); Lymphocyte % 24.3 % (19-41); Mean Corpuscular Hgb 29.6 pg (27.0-32.0); Mean Corpuscular Volume 92.5 fL (80-94); Mean Platelet Vol. 12.4 fl (6.2-12.0); Monocyte# 0.43 X10^3/uL; Monocyte% 6.7 % (0-10); NRBC Flagged by Analyzer 0 % (0-5); Neutrophil # 3.95 X10^3/uL (2.7-7.7); Neutrophil % 61.8 % (47-70); Platelet Count 158 K/mm3 (150-450); RBC Distribution Width CV 14.8 % (11.6-14.6); RBC Distribution Width SD 49.6 fl (35.1-43.9); Red Blood Count 3.85 M/mm3 (4.6-6.2); White Blood Count 6.4 K/mm3 (4.4-11.0)
--- NOTE | 2020-12-20 07:54 | ED.VIS.CHEST ---
HPI History of Present Illness Chief Complaint: Palpitations Informant: patient Onset/Context/Timing Onset: Today Activity at onset: sudden Timing: Continuous Quality: Positive for Heaviness, Pain and Tightness Location: Substernal and Left Chest Current Severity: Severe Maximum Severity: Severe Worsened By: Nothing Relieved By: Nothing Associated Symptoms: Positive for Nausea and Diaphoresis Narrative Narrative: The patient is an 85-year-old male with medical history significant for coronary vascular disease with history of multiple stents, hypertension, hyperlipidemia, ischemic cardiomyopathy who presents to the emergency department chest pain. The patient states that he was recently taken off of his Plavix as he had a TURP done about 10 days ago. He states that this morning, he woke with sudden onset chest pressure. He states that substernal radiates to his left arm. He states is very similar to when he had his prior MIs. He did call EMS. On EMS arrival, he was in what appeared to be atrial fibrillation with rapid ventricular response. He was given adenosine with no change. He refused nitro. On arrival to the emergency department, he is still complaining of significant chest pain. Prior Similar Symptoms: Yes and With Prior [place] Recent Illness/Hospitalization: No PFSH PFS Medical History Arthritis Atherosclerosis of coronary artery of [place] heart with angina pectoris Bruising Cancer Carotid artery disease Chronic indwelling Medley catheter Chronic systolic (congestive) heart failure DDD (degenerative disc disease) Essential (primary) hypertension GERD (gastroesophageal reflux disease) GERD (gastroesophageal reflux disease) Hiatal hernia High cholesterol History of non-ST elevation myocardial infarction (NSTEMI) (11/19/20) HLD (hyperlipidemia) Hypertension ICD (implantable cardioverter-defibrillator) in place Ischemic cardiomyopathy Left carotid artery stenosis Myocardial infarct Myocardial infarct Non-smoker Nonsustained ventricular tachycardia 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 infarction Polycythemia Segmental and somatic dysfunction of pelvic region Segmental and somatic dysfunction of thoracic region Shortness of breath on exertion Sinus drainage TIA (transient ischemic attack) TIA (transient ischemic attack) Wears dentures Wears glasses Home Medications pantoprazole 40 mg PO DAILY 10/29/16 [History Last Taken 08/13/19] testosterone 20.25 mg/1.25 gram (1.62 %) transdermal gel pump 1 pump TOPICAL DAILY #150 g 04/06/20 [Rx Last Taken Unknown] nitroglycerin 0.4 mg sublingual tablet 0.4 mg SUBLINGUAL Q5-15M PRN #25 tab 07/22/20 [Rx Last Taken Unknown] melatonin 5 mg PO QHS 12/06/20 [History Last Taken Unknown] acetaminophen 325 mg PO Q6H PRN 12/10/20 [History Last Taken Unknown] amlodipine 2.5 mg PO DAILY 12/10/20 [History Last Taken Unknown] aspirin 81 mg PO DAILY 12/10/20 [History Last Taken 11/30/20 08:00] clopidogrel [Plavix] 75 mg PO DAILY 12/10/20 [History Last Taken 11/30/20] isosorbide dinitrate 10 mg PO TID 12/10/20 [History Last Taken Unknown] metoprolol succinate 50 mg PO DAILY 12/10/20 [History Last Taken Unknown] tamsulosin 0.4 mg PO DAILY 12/10/20 [History Last Taken Unknown] ciprofloxacin HCl [Cipro] 500 mg PO BID #14 tab 12/16/20 [Rx Last Taken Unknown] Allergy/AdvReac Type Severity Reaction Status Date / Time hydrochlorothiazide Allergy Severe Severe Verified 12/10/20 13:05 itching rash promethazine [From Phenergan] Allergy Other Verified 12/10/20 13:05 ranolazine [From Ranexa] AdvReac Severe Rash Verified 12/10/20 13:05 omeprazole AdvReac Unknown Verified 12/10/20 13:05 Phenothiazines AdvReac Unknown Verified 12/10/20 13:05 Mxsjcse-Akt-Ibl Reductase AdvReac myalgias Verified 12/10/20 13:05 Inhibitor PHENEGRANZOLE AdvReac Unknown Uncoded 12/10/20 13:05 Family History Father , Age 37 from [place] CAD (coronary artery disease) Myocardial infarction Sudden cardiac Mother , age 96 Diabetes Surgical History History of appendectomy History of cataract surgery History of coronary artery stent placement (09/16/19) History of electrophysiologic study (2009) History of hernia repair History of implantable cardiac defibrillator (ICD) (05/17/10) History of intraocular lens implant History of intravascular stent placement History of left heart catheterization (11/19/20) History of transurethral resection of prostate Social History Smoking Status: Never smoker alcohol intake: never substance use type: does not use caffeine: Yes Type: carbonated beverages Number of servings: 1 and coffee Number of servings: 1 what type of physical activity do you participate in: none ROS ROS ED Constitutional Constitutional ED: Denies chills or fever(s) Eyes Eyes: Denies blurry vision or change in vision ENT ENT ED: Denies ear pain or sore throat Cardiovascular Cardiovascular: Reports chest pain and palpitations Respiratory/Chest Respiratory/Chest: Reports dyspnea; Denies cough or dyspnea on exertion Gastrointestinal Gastrointestinal: Reports nausea; Denies abdominal pain or vomiting Genitourinary Genitourinary ED: Denies dysuria or urinary frequency Musculoskeletal Musculoskeletal: Denies arthralgias or myalgias Integumentary Denies rash Neurologic Neurologic: Denies headache(s) or paresthesias Psychiatric Psychiatric: Denies anxiety or depression Endocrine Endocrinology: Denies polydipsia or polyuria Allergic/Immunologic Allergic/Immunologic ED: Denies urticaria EXAM Physical Exam Const Vital Signs: 12/20/20 07:28 12/20/20 07:29 12/20/20 07:31 Temperature 97.4 F L Temperature Source Temporal Pulse Rate 135 H 141 H Respiratory Rate 26 H 22 H Respiratory Effort Normal Blood Pressure 121/92 H 121/92 H Blood Pressure Mean 101 101 Pulse Ox 95 96 Oxygen Delivery Method Room Air Room Air Oxygen Flow Rate (L/min) 12/20/20 07:47 12/20/20 08:02 Temperature Temperature Source Pulse Rate 94 Respiratory Rate 14 Respiratory Effort Blood Pressure 130/65 H Blood Pressure Mean 86 Pulse Ox 93 95 Oxygen Delivery Method Nasal Cannula Room Air Oxygen Flow Rate (L/min) 2 Positive well nourished and well developed General Appearance ED: well developed HEENT Reports normocephalic, head/scalp atraumatic and moist mucous membranes Eyes PERRL and EOMs intact bilaterally Neck no lymphadenopathy and supple General: Negative for tenderness Chest Wall inspection of chest normal Resp normal respiratory effort and clear to auscultation bilaterally Cardio no murmurs Rate: tachycardic Rhythm: abnormal rhythm GI normal to inspection, nondistended, normoactive bowel sounds Palpation: Negative for tender, guarding or rebound tenderness present Back/Spine no CVA tenderness Cervical Spine: Negative for cervical spine tenderness Thoracic Spine / Upper Back: Negative for thoracic spinal tenderness Extremity normal to inspection General Extremety ED: Negative for tenderness Neuro oriented x3 and CN's II-XII intact bilaterally Neuro Narrative: No focal deficits appreciated. Sensorium / Orientation: alert Psych mental status grossly normal Skin no rashes or lesions noted, no wounds and skin turgor normal MDM MDM MDM Narrative Medical decision making narrative: The patient presents with chest pain. He does have significant history of coronary vascular disease. On arrival, he was tachycardic with chest pain. The patient was given 20 mg of diltiazem as his initial EKG did demonstrate what appears to be atrial fibrillation with rapid ventricular response. He does have discordant ST elevation across the precordial leads, but again has history of left bundle branch block. And compared to prior, this is more elevation, however again this is discordant. Once the patient's rate was under better control, his EKG was repeated. It still shows the subtle changes across the precordium. I have been in contact with Dr. Dailey throughout the patient's emergency department course. He was able to review all the EKGs. The patient did have significant improvement of his pain when his rate was under better control, however as he has been taken off of his antiplatelet agents, he is at high risk for in-stent for stenosis or thrombosis. The plan will be to take the patient to the [facility] urgently for evaluation. The patient and are agreeable with this plan of care. The patient will be admitted to the hospitalist service status post cath. Impression 1. Acute coronary syndrome 2. EKG changes 3. Atrial fibrillation with rapid ventricular response Lab Data Attestation: I reviewed the patient's lab results. Labs: Laboratory Results - last 24 hr 12/20/20 12/20/20 12/20/20 07:30 07:30 07:30 WBC 6.4 RBC 3.85 L Hgb 11.4 L Hct 35.6 L MCV 92.5 MCH 29.6 MCHC 32.0 RDW Std Deviation 49.6 H RDW Coeff of Dane 14.8 H Plt Count 158 MPV 12.4 H Immature Gran % (Auto) 0.600 Neut % (Auto) 61.8 Lymph % (Auto) 24.3 [place] % (Auto) 6.7 Eos % (Auto) 6.1 H Baso % (Auto) 0.5 Absolute Neuts (auto) 4.0 Absolute Lymphs (auto) 1.55 Nucleated RBC % 0 Sodium 138 Potassium 3.5 Chloride 105 Carbon Dioxide 26.0 Anion Gap 7 BUN 19 H Creatinine 1.31 H Estim Creat Clear Calc 43.34 Est GFR (MDRD) Af Amer 67 Est GFR (MDRD) Non-Af 55 L BUN/Creatinine Ratio 14.5 Glucose 128 H Calcium 9.1 Magnesium 2.0 Troponin I 0.078 H B-Natriuretic Peptide 276.5 H Radiography Chest X-Ray - ED: 1 View, Read by ED Physician, Unchanged, Normal, Mediastinum, Bony Structures, Cardiomegaly and CHF Diagnostic Testing: Radiology Impression Chest X-Ray 12/20/20 08:05 IMPRESSION: No active disease per Electronically Signed: Stew Leo MD at 8:45 EDT Tel , Service support , EKG Initial EKG: Attestation: I personally reviewed and interpreted this EKG as follows: Interpretation: Atrial Fibrillation and LBBB Prior EKG tracings: available for review Prior: Changed Follow-up EKG: Attestation: I personally reviewed and interpreted this EKG as follows: Interpretation: Atrial Fibrillation and Non-Specific ST Changes Prior EKG tracings: available for review Prior: Changed Critical Care Time Critical Care Time: Yes Critical care time (excluding procedures): 30-74 minutes (35 minutes total including time spent), Discussing w/Patient &/or Family/Shipping Clerk/Admin, Discussing w/Consultants, Arranging Admission or Transfer and Performing Direct Patient Care at Bedside Discharge Plan Triage Chief Complaint: Palpitations ED Provider: Michael Mata Dx/Rx/DC Orders Primary Care Provider: Jacques Pena Chi Disposition Discharge Date/Time: 12/20/20 08:58
[2020-12-20 08:00] LABS: Anion Gap 7 (5-15); BUN 19 mg/dL (7-18); BUN/Creat Ratio 14.5 RATIO (10-20); Calcium,Total 9.1 mg/dL (8.5-10.1); Chloride 105 mmol/L (98-107); Creatinine, Serum 1.31 mg/dL (0.70-1.30); EST Glomerular Filtration Rate 55 mL/min (>60); Est Glom Filt Rate - Afr Amer 67 mL/min (>60); Estimated Creatinine Clearance 43.34 ml/min; Glucose 128 mg/dL (74-106); Potassium 3.5 mmol/L (3.5-5.1); Sodium Level 138 mmol/L (136-145)
[2020-12-20 08:02] LABS: BNP,B-Type NATRIURETIC PEPTIDE 276.5 pg/mL (0-100)
--- NOTE | 2020-12-20 08:05 | RAD_ITS ---
STUDY: X-RAY CHEST REASON FOR EXAM: Male, 85 years old. chest pain TECHNIQUE: Single AP portable view of the chest. COMPARISON: 11/19/2020 FINDINGS: Right subclavian dual-lead AICD which is unchanged The lungs are clear and expanded. Elevated right hemidiaphragm which is unchanged. There is moderate cardiac enlargement. Normal mediastinum and agapito. Normal visualized pulmonary arteries. Normal visualized aortic arch and descending thoracic aorta. Normal visualized thoracic spine. Normal visualized ribs, clavicles, and shoulders. There is no demonstrated abnormality of the visualized soft tissue structures of the upper abdomen. RAD/Chest 1 View (Portable) IMPRESSION: No active disease per Electronically Signed: Stew Leo MD at 8:45 EDT Tel , Service support ,
--- NOTE | 2020-12-20 08:07 | NURSING ---
PATIENT GOING TO [facility].
--- NOTE | 2020-12-20 08:11 | NURSING ---
CARDIOLOGY IN ROOM
[2020-12-20] MEDS: Heparin Injection (Vial) 5,000 UNIT/ML VIAL 5000 UNIT IV (08:13)
[2020-12-20] MEDS: Morphine 2 MG/ML Syringe IV (08:13)
--- NOTE | 2020-12-20 08:15 | EKG12_ITS ---
Test Reason : REPEAT Blood Pressure : / mmHG Vent. Rate : 086 BPM Atrial Rate : 085 BPM P-R Int : 000 ms QRS Dur : 154 ms QT Int : 410 ms P-R-T Axes : 000 -39 130 degrees QTc Int : 490 ms Atrial fibrillation with frequent ventricular-paced complexes Left axis deviation Left bundle branch block Abnormal ECG Confirmed by JENNIFER ROCHA, JESSE ([id number]), editor news BIAT ROBB ([id number]) on 12/22/2020 9:15:23 AM Referred By: ASHLEY Confirmed By:JESSE RODRIGUEZ MD
[2020-12-20] MEDS: 0.9% Normal Saline 1,000 ML 150 ML IV (08:16)
[2020-12-20] MEDS: TICAGRELOR 90 MG TABLET 180 MG PO (08:28)
--- NOTE | 2020-12-20 08:29 | EKG12_ITS ---
Test Reason : REPEAT Blood Pressure : / mmHG Vent. Rate : 078 BPM Atrial Rate : 056 BPM P-R Int : 000 ms QRS Dur : 152 ms QT Int : 422 ms P-R-T Axes : 000 -34 130 degrees QTc Int : 481 ms Suspect unspecified pacemaker failure Atrial fibrillation with frequent ventricular-paced complexes and with premature ventricular or aberr antly conducted complexes Left axis deviation Left bundle branch block Abnormal ECG Confirmed by JENNIFER ROCHA, JESSE ([id number]), publications editor BITA ROBB ([id number]) on 12/22/2020 9:25:25 AM Referred By: ASHLEY Confirmed By:JESSE RODRIGUEZ MD
--- NOTE | 2020-12-20 08:54 | NURSING ---
ICU 1 [facility]
--- NOTE | 2020-12-20 10:08 | PCIREPORT_ITS ---
PCI Cardiac Cath Report PCI Report: Procedure performed; 1. Left heart catheterization 2. Selective coronary angiography 3. Left ventriculogram 4. Placement of TR band to the right radial artery arteriotomy site. Preprocedure diagnosis; 85-year-old patient who had extensive cardiac history, presented to the ER with symptoms of chest pain happened last night. And had significant change in the EKG Initial EKG showed underlying atrial fibrillation with rapid ventricular rate some ST change elevation noted in the anterior lead. He was given heparin aspirin in the ER and his symptoms of chest pain resolved. Patient had recent surgery TURP and his medication with the dual antiplatelet aspirin and Plavix was on hold. In January 2020 he underwent a heart catheterization which demonstrated triple- vessel disease stents were patent in the left main, circumflex and proximal mid RCA. He had a stent also in the ostial to proximal and mid LAD distal disease was noted in his LAD with total occlusion of the mid segment and moderate disease in a previously placed stent. Patient has a viability study which showed nonviable myocardium in the LAD distribution. Patient has a left main stent using 5 x 22 mm resolute Victoriano stent and he has a proximal left circumflex and mid left circumflex using 3.5 x 30 mm drug-eluting stent resolute Victoriano. Patient has severe LV systolic dysfunction ejection fraction of 25 and he had ICD. Based on his clinical presentation and extensive cardiac history we will proceed with cardiac catheterization. Patient was given Brilinta 180 mg in the ER in addition to aspirin and heparin. Consent; Risk and benefit of the procedure explained in detail to the patient informed consent obtained and placed in the chart Diagnostic catheter used; 1. 6 Indonesian sheath placed in the right radial artery 2. 5 Indonesian JL 3.5 3. 5 Indonesian JR4 4. 5 Indonesian pigtail catheter. Procedure in detail; Patient brought to the Business Process [facility], right radial artery prepped and draped in the usual sterile fashion, and 6 Indonesian sheath placed in the right radial artery/Terumo A cocktail of verapamil, heparin as well as active glycerin was given through the sheath. Then will proceed with the diagnostic catheter 5 Indonesian JL 3.5 advanced ascending aorta engaged the left coronary ostium without difficulty and multiple views of the left wrist are obtained. Following this we will proceed with 5 Indonesian JR4 and selective angiographic right consumer obtained including PAWEL, POSADA cranial and caudal views Following this catheter exchanged for 5 Indonesian pigtail catheter and element granted a 30 degree out of projection. Hemodynamics; Severe LV systolic dysfunction with ejection fraction in the range of 20-25%, LVEDP elevated. There is no systolic gradient across aortic valve. There is no mitral regurgitation noted. Finding of current angiography; 1. Patent left main stent with 20% distal in-stent stenosis, left main bifurcating into LAD and left circumflex Patent LAD stent with a 90% stenosis involving the ostium, distal LAD, distal to the stent there is a 90% stenosis with a BASHIR III flow 2. Patent left circumflex artery stent with ostial around 20 to 30% in-stent restenosis. 3. Large dominant RCA with patent proximal to mid stent, distal RCA had nonobstructive sclerosis of around 30-40%, involving the ostium of the RPDA of around 40%. Conclusion and recommendations; 1. This patient had extensive cardiac history is 85-year-old and presented with symptoms of chest pain which is resolved with medical therapy and angiographic views does not change from his recent angiogram Patient had nonviable myocardium in the LAD distribution and had multiple stents involving the left main, LAD, left circumflex as well as RCA. 2. We will continue to monitor on telemetry floor with a series of cardiac markers, I resumed the dual antiplatelet therapy with aspirin/Plavix 3. Patient had episode of paroxysmal atrial fibrillation on this admission, high risk for stroke with his extensive cardiac history according to [id number] VASC. Patient had renal insufficiency with elevated creatinine 1.3 and elderly 85 and a high risk for bleeding tendency being on dual antiplatelet therapy therefore the doses of the Eliquis is 2.5 mg twice daily 4. We will resume the rest of his current medication. 5. According to review of record patient could not tolerate long-acting nitrate and Ranexa in the past. 6. His primary squeegee operator Dr. Lawrence will resume care. Velma Dailey MD,[facility]
[2020-12-20] MEDS: 0.9% Normal Saline 1,000 ML 50 ML IV ×2 (10:44→21:21)
--- NOTE | 2020-12-20 11:06 | EKG12_ITS ---
Test Reason : RHYTHM CHANGE Blood Pressure : / mmHG Vent. Rate : 077 BPM Atrial Rate : 077 BPM P-R Int : 160 ms QRS Dur : 146 ms QT Int : 414 ms P-R-T Axes : 023 -37 133 degrees QTc Int : 468 ms Sinus rhythm Left axis deviation Left bundle branch block Abnormal ECG When compared with ECG of 20-DEC-2020 08:21, MANUAL COMPARISON REQUIRED, DATA IS UNCONFIRMED Confirmed by JENNIFER ROCHA, EJSSE ([id number]), graphics editor BITA ROBB ([id number]) on 12/22/2020 9:44:35 AM Referred By: ALEXIA Confirmed By:JESSE RODRIGUEZ MD
[2020-12-20] MEDS: Pantoprazole Sodium 40 MG Tablet PO (12:05)
[2020-12-20] MEDS: amLODIPine 2.5 MG Tablet PO (12:05)
[2020-12-20] MEDS: Metoprolol(XL)Succ 50 MG Tablet PO (12:05)
[2020-12-20] MEDS: Ciprofloxacin 500 MG Tablet PO ×2 (12:30→21:18)
[2020-12-20] MEDS: Isosorbide DN 10 MG Tablet PO ×2 (13:57→21:19)
--- NOTE | 2020-12-20 15:53 | PCM.HP.STD ---
Documented by User: Guicho BAILEY 12/20/20 16:39 HPI - General General Date of Admission: 12/20/20 HPI Narrative Patient is a 85-year-old male who presents to the ED at [place] on 12/20/2020 with a chief complaint of chest pain that is substernal and radiates to his left arm. Patient was brought to the ED via EMS, who found the patient to be in A. fib with RVR on arrival. In route to the ED patient was given adenosine with no change, patient refused nitroglycerin and on arrival to the ED was still complaining of chest pain. Upon arrival to the ED a second EKG was obtained and the patient was found to have ST elevation in the precordial leads. Patient was subsequently given 20 mg of diltiazem which did correct the patient's heart rate. Another EKG in the ED was obtained and demonstrated subtle changes in the precordial leads. Cardiology was contacted and patient was taken to the cardiac [facility]. Cardiac catheterization demonstrated no acute changes from recent angiogram which was obtained 2 weeks ago. Home medications will be resumed and patient will be placed on PCU floor for cardiac monitoring and telemetry. 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 Atrial fibrillation Bruising Cancer Carotid artery disease Chronic indwelling Medley catheter Chronic systolic (congestive) heart failure Congestive heart failure (CHF) DDD (degenerative disc disease) Essential (primary) hypertension GERD (gastroesophageal reflux disease) GERD (gastroesophageal reflux disease) Hiatal hernia High cholesterol History of non-ST elevation myocardial infarction (NSTEMI) (11/19/20) HLD (hyperlipidemia) Hypertension ICD (implantable cardioverter-defibrillator) in place Irregular heart beat Ischemic cardiomyopathy Left carotid artery stenosis Myocardial infarct Myocardial infarct Non-smoker Nonsustained ventricular tachycardia 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 infarction Pacemaker Polycythemia Segmental and somatic dysfunction of pelvic region Segmental and somatic dysfunction of thoracic region Shortness of breath on exertion Sinus drainage TIA (transient ischemic attack) TIA (transient ischemic attack) Wears dentures Wears glasses Home Medications pantoprazole 40 mg PO DAILY 10/29/16 [History Last Taken 08/13/19] testosterone 20.25 mg/1.25 gram (1.62 %) transdermal gel pump 1 pump TOPICAL DAILY #150 g 04/06/20 [Rx Last Taken Unknown] nitroglycerin 0.4 mg sublingual tablet 0.4 mg SUBLINGUAL Q5-15M PRN #25 tab 07/22/20 [Rx Last Taken Unknown] melatonin 5 mg PO QHS 12/06/20 [History Last Taken Unknown] acetaminophen 325 mg PO Q6H PRN 12/10/20 [History Last Taken Unknown] amlodipine 2.5 mg PO DAILY 12/10/20 [History Last Taken Unknown] aspirin 81 mg PO DAILY 12/10/20 [History Last Taken 11/30/20 08:00] clopidogrel [Plavix] 75 mg PO DAILY 12/10/20 [History Last Taken 11/30/20] isosorbide dinitrate 10 mg PO TID 12/10/20 [History Last Taken Unknown] metoprolol succinate 50 mg PO DAILY 12/10/20 [History Last Taken Unknown] tamsulosin 0.4 mg PO DAILY 12/10/20 [History Last Taken Unknown] ciprofloxacin HCl [Cipro] 500 mg PO BID #14 tab 12/16/20 [Rx Last Taken Unknown] Allergy/AdvReac Type Severity Reaction Status Date / Time hydrochlorothiazide Allergy Severe Severe Verified 12/10/20 13:05 itching rash promethazine [From Phenergan] Allergy Other Verified 12/10/20 13:05 ranolazine [From Ranexa] AdvReac Severe Rash Verified 12/10/20 13:05 omeprazole AdvReac Unknown Verified 12/10/20 13:05 Phenothiazines AdvReac Unknown Verified 12/10/20 13:05 Bhjtkyh-Rfk-Rje Reductase AdvReac myalgias Verified 12/10/20 13:05 Inhibitor PHENEGRANZOLE AdvReac Unknown Uncoded 12/10/20 13:05 Family History Father , Age 37 from [place] CAD (coronary artery disease) Myocardial infarction Sudden cardiac Mother , age 96 Diabetes Surgical History (Updated 12/20/20 @ 10:38 by Mary Kay Mireles) History of appendectomy History of cataract surgery History of coronary artery stent placement (09/16/19) History of electrophysiologic study (2009) History of hernia repair History of implantable cardiac defibrillator (ICD) (05/17/10) History of intraocular lens implant History of intravascular stent placement History of left heart catheterization (11/19/20) History of transurethral resection of prostate S/P TURP (status post transurethral resection of prostate) Social History Smoking Status: Never smoker alcohol intake: never substance use type: does not use caffeine: Yes Type: carbonated beverages Number of servings: 1 and coffee Number of servings: 1 what type of physical activity do you participate in: none ROS Constitutional Constitutional: Denies anorexia, change in weight, chills, fatigue, fever(s), malaise, night sweats, weakness or other Eyes Eyes: Denies blurry vision, change in eye color, change in vision, discharge from eye(s), double vision, erythema, eye pain, loss of vision or other ENT HEENT: Denies abnormal hearing, dysphagia, ear pain, epistaxis, headache(s), hearing loss, nasal congestion, nasal discharge, post nasal drip, sinus pressure, sore throat or other Cardiovascular Cardiovascular: Reports chest pain, dyspnea on exertion, palpitations and rapid heart rate Respiratory/Chest Respiratory/Chest: Reports shortness of breath at rest and shortness of breath with exertion; Denies cough, dyspnea, excessive phlegm production, hemoptysis, productive cough, wheezing or other Gastrointestinal Gastrointestinal: Reports heartburn Genitourinary Genitourinary: Denies burning urination, difficulty urinating, dysuria, hematuria, nocturia, urinary frequency, urinary hesitancy, urinary incontinence, urinary urgency or other Musculoskeletal Musculoskeletal: Denies arthralgias, back pain, joint pain, joint stiffness, joint swelling, myalgias, neck pain or other Neurologic Neurologic: Denies abnormal gait, abnormal speech, confusion, disequilibrium, dizziness, focal weakness, headache(s), numbness, paresthesias, seizure-like activity, seizures, syncope, tingling, tremor(s) or other Psychiatric Psychiatric: Denies anxiety, depression, homicidal ideation, suicidal ideation or other Endocrine Endocrinology: Denies change in body appearance, cold intolerance, excessive sweating, heat intolerance, polydipsia, polyuria or other Hematologic/Lymphatic Hematologic/Lymphatic: Denies anemia, easy bleeding, easy bruising, lymphadenopathy or other Allergic/Immunologic Allergic/Immunologic: Denies rhinitis, hives, eczemia, asthma or other Vital Signs Vital Signs Vital Signs: 12/20/20 07:28 12/20/20 07:29 12/20/20 07:31 Temperature 97.4 F L Temperature Source Temporal Pulse Rate 135 H 141 H Respiratory Rate 26 H 22 H Respiratory Effort Normal Respiratory Depth Respiratory Pattern Blood Pressure 121/92 H 121/92 H Blood Pressure Mean 101 101 Blood Pressure Source Blood Pressure Position Blood Pressure Location Pulse Ox 95 96 Oxygen Delivery Method Room Air Room Air Oxygen Flow Rate (L/min) 12/20/20 07:47 12/20/20 08:02 12/20/20 08:56 Temperature 98.4 F Temperature Source Temporal Pulse Rate 94 87 Respiratory Rate 14 16 Respiratory Effort Respiratory Depth Respiratory Pattern Blood Pressure 130/65 H 111/75 Blood Pressure Mean 86 87 Blood Pressure Source Blood Pressure Position Blood Pressure Location Pulse Ox 93 95 97 Oxygen Delivery Method Nasal Cannula Room Air Nasal Cannula Oxygen Flow Rate (L/min) 2 2 12/20/20 10:00 12/20/20 10:15 12/20/20 10:29 Temperature 97 F L Temperature Source Temporal Pulse Rate 99 104 H 107 H Respiratory Rate 17 17 Respiratory Effort Respiratory Depth Respiratory Pattern Blood Pressure 119/71 116/77 Blood Pressure Mean 87 90 Blood Pressure Source Monitor Monitor Blood Pressure Position Semi-Fowlers Semi-Fowlers Blood Pressure Location Left Arm Left Arm Pulse Ox 97 98 Oxygen Delivery Method Room Air Room Air Oxygen Flow Rate (L/min) 12/20/20 10:30 12/20/20 10:45 12/20/20 11:00 Temperature 97 F L Temperature Source Temporal Pulse Rate 97 107 H 72 Respiratory Rate 18 17 14 Respiratory Effort Normal Non-Labored Respiratory Depth Normal Respiratory Pattern Normal Blood Pressure 116/81 H 131/77 H 126/72 H Blood Pressure Mean 92 95 90 Blood Pressure Source Monitor Monitor Monitor Blood Pressure Position Semi-Fowlers Semi-Fowlers Supine Blood Pressure Location Left Arm Left Arm Left Arm Pulse Ox 96 98 97 Oxygen Delivery Method Room Air Room Air Room Air Oxygen Flow Rate (L/min) 12/20/20 11:30 12/20/20 11:44 12/20/20 11:45 Temperature Temperature Source Pulse Rate 69 70 Respiratory Rate 14 Respiratory Effort Respiratory Depth Respiratory Pattern Blood Pressure 124/72 H Blood Pressure Mean 89 Blood Pressure Source Monitor Blood Pressure Position Supine Blood Pressure Location Right Arm Pulse Ox 100 99 Oxygen Delivery Method Room Air Room Air Oxygen Flow Rate (L/min) 12/20/20 12:00 12/20/20 12:05 12/20/20 12:30 Temperature 97.3 F L Temperature Source Temporal Pulse Rate 69 68 76 Respiratory Rate 20 H 18 Respiratory Effort Respiratory Depth Respiratory Pattern Blood Pressure 135/74 H 135/74 H 130/70 H Blood Pressure Mean 94 90 Blood Pressure Source Monitor Monitor Blood Pressure Position Semi-Fowlers Semi-Fowlers Blood Pressure Location Left Arm Left Arm Pulse Ox 99 98 Oxygen Delivery Method Room Air Room Air Oxygen Flow Rate (L/min) 12/20/20 13:00 12/20/20 14:00 12/20/20 14:31 Temperature Temperature Source Pulse Rate 72 78 Respiratory Rate 18 19 H Respiratory Effort Normal Non-Labored Respiratory Depth Normal Respiratory Pattern Normal Blood Pressure 118/56 L 123/65 H Blood Pressure Mean 76 84 Blood Pressure Source Monitor Monitor Blood Pressure Position Semi-Fowlers Semi-Fowlers Blood Pressure Location Left Arm Left Arm Pulse Ox 97 97 Oxygen Delivery Method Room Air Room Air Room Air Oxygen Flow Rate (L/min) 12/20/20 15:00 12/20/20 15:04 Temperature Temperature Source Pulse Rate 76 77 Respiratory Rate 20 H Respiratory Effort Respiratory Depth Respiratory Pattern Blood Pressure 106/50 L Blood Pressure Mean 68 Blood Pressure Source Monitor Blood Pressure Position Semi-Fowlers Blood Pressure Location Left Arm Pulse Ox 95 Oxygen Delivery Method Room Air Oxygen Flow Rate (L/min) Physical Exam Const alert and oriented x3 HEENT normocephalic, head/scalp atraumatic, hearing grossly normal bilaterally and moist oral mucous membranes Eyes PERRL and EOMs intact bilaterally Neck no lymphadenopathy, supple and no JVD Resp normal respiratory effort, no retractions, no use of accessory muscles and clear to auscultation bilaterally Cardio regular rate, regular rhythm, no murmurs and no JVD GI normal to inspection, nondistended, normoactive bowel sounds, soft to palpation, non-tender and non-distended Extremity normal to inspection and full ROM Skin no rashes or lesions noted, no wounds and no jaundice Neuro CN's II-XII intact bilaterally Psych affect normal Lab / Micro Data Result Diagrams: 12/20/20 07:30 12/20/20 07:30 Labs: Laboratory Results - last 24 hr 12/20/20 12/20/20 12/20/20 07:30 07:30 07:30 WBC 6.4 RBC 3.85 L Hgb 11.4 L Hct 35.6 L MCV 92.5 MCH 29.6 MCHC 32.0 RDW Std Deviation 49.6 H RDW Coeff of Dane 14.8 H Plt Count 158 MPV 12.4 H Immature Gran % (Auto) 0.600 Neut % (Auto) 61.8 Lymph % (Auto) 24.3 Stephenson % (Auto) 6.7 Eos % (Auto) 6.1 H Baso % (Auto) 0.5 Absolute Neuts (auto) 4.0 Absolute Lymphs (auto) 1.55 Nucleated RBC % 0 Sodium 138 Potassium 3.5 Chloride 105 Carbon Dioxide 26.0 Anion Gap 7 BUN 19 H Creatinine 1.31 H Estim Creat Clear Calc 43.34 Est GFR (MDRD) Af Amer 67 Est GFR (MDRD) Non-Af 55 L BUN/Creatinine Ratio 14.5 Glucose 128 H Calcium 9.1 Magnesium 2.0 Troponin I 0.078 H B-Natriuretic Peptide 276.5 H Radiology Impression Chest X-Ray 12/20/20 08:05 IMPRESSION: No active disease per Electronically Signed: Stew Leo MD at 8:45 EDT Tel , Service support , Assessment & Plan Assessment/Plan (1) History of non-ST elevation myocardial infarction (NSTEMI): (2) History of coronary artery stent placement: (3) Ischemic cardiomyopathy: (4) Chronic systolic (congestive) heart failure: (5) Essential (primary) hypertension: (6) HLD (hyperlipidemia): QUALIFIERS: Hyperlipidemia type: pure hypercholesterolemia Qualified Code(s): E78.00 - Pure hypercholesterolemia, unspecified; E78.0 - Pure hypercholesterolemia (7) Left carotid artery stenosis: PLAN: Patient is a 85-year-old male who presents to the ED at [place] on 12/20/2020 with a chief complaint of chest pain that is substernal and radiates to his left arm. Patient is being admitted to PCU for cardiac monitoring post cardiac catheterization for chest pain in the setting of A. fib with RVR. Cardiac catheterization demonstrated no acute changes from recent angiogram which was obtained 2 weeks ago. Catheterization completed on 11/20/2020 demonstrated an ejection fraction of 25%, severe global hypokinesis and depressed left ventricular systolic function, a 20% restenosis in the left main artery and occlusion of the LAD. Dr. Lawrence will follow up with patient in the morning and medical management will be resumed. 1) Chest pain in the setting of A-Fib w/ RVR A. fib with RVR was found by EMS and in the ED, despite administration of adenosine. Nitroglycerin was refused by the patient. Rate was controlled with diltiazem, however still demonstrated subtle ST elevations in the precordial leads. Cardiology following. Plan; resume amlodipine, metoprolol succinate, aspirin, plavix and isosorbide dinitrate. 2) HTN Stable. Plan; amlodipine, isosorbide dinitrate and metoprolol succinate continued. 3) Chronic systolic CHF As above. 4) BPH Patient recently underwent TURP for investigation of hematuria, aspirin, Plavix and Eliquis were held due to bleeding risk. Continue Flomax. 5) GERD Continue pantoprazole. CODE STATUS: Full code DVT Prophylaxis - Eliquis on hold per cardiology Patient seen by Guicho Jacobs PA-C, under the supervision of Dr. Davila Documented by User: Dr. 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 Atrial fibrillation Bruising Cancer Carotid artery disease Chronic indwelling Medley catheter Chronic systolic (congestive) heart failure Congestive heart failure (CHF) DDD (degenerative disc disease) Essential (primary) hypertension GERD (gastroesophageal reflux disease) GERD (gastroesophageal reflux disease) Hiatal hernia High cholesterol History of non-ST elevation myocardial infarction (NSTEMI) (11/19/20) HLD (hyperlipidemia) Hypertension ICD (implantable cardioverter-defibrillator) in place Irregular heart beat Ischemic cardiomyopathy Left carotid artery stenosis Myocardial infarct Myocardial infarct Non-smoker Nonsustained ventricular tachycardia 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 infarction Pacemaker Polycythemia Segmental and somatic dysfunction of pelvic region Segmental and somatic dysfunction of thoracic region Shortness of breath on exertion Sinus drainage TIA (transient ischemic attack) TIA (transient ischemic attack) Wears dentures Wears glasses Home Medications pantoprazole 40 mg PO DAILY 10/29/16 [History Last Taken 08/13/19] testosterone 20.25 mg/1.25 gram (1.62 %) transdermal gel pump 1 pump TOPICAL DAILY #150 g 04/06/20 [Rx Last Taken Unknown] nitroglycerin 0.4 mg sublingual tablet 0.4 mg SUBLINGUAL Q5-15M PRN #25 tab 07/22/20 [Rx Last Taken Unknown] melatonin 5 mg PO QHS 12/06/20 [History Last Taken Unknown] acetaminophen 325 mg PO Q6H PRN 12/10/20 [History Last Taken Unknown] amlodipine 2.5 mg PO DAILY 12/10/20 [History Last Taken Unknown] aspirin 81 mg PO DAILY 12/10/20 [History Last Taken 11/30/20 08:00] clopidogrel [Plavix] 75 mg PO DAILY 12/10/20 [History Last Taken 11/30/20] isosorbide dinitrate 10 mg PO TID 12/10/20 [History Last Taken Unknown] metoprolol succinate 50 mg PO DAILY 12/10/20 [History Last Taken Unknown] tamsulosin 0.4 mg PO DAILY 12/10/20 [History Last Taken Unknown] ciprofloxacin HCl [Cipro] 500 mg PO BID #14 tab 12/16/20 [Rx Last Taken Unknown] Allergy/AdvReac Type Severity Reaction Status Date / Time hydrochlorothiazide Allergy Severe Severe Verified 12/10/20 13:05 itching rash promethazine [From Phenergan] Allergy Other Verified 12/10/20 13:05 ranolazine [From Ranexa] AdvReac Severe Rash Verified 12/10/20 13:05 omeprazole AdvReac Unknown Verified 12/10/20 13:05 Phenothiazines AdvReac Unknown Verified 12/10/20 13:05 Hpirhkg-Dbx-Rqa Reductase AdvReac myalgias Verified 12/10/20 13:05 Inhibitor PHENEGRANZOLE AdvReac Unknown Uncoded 12/10/20 13:05 Family History Father , Age 37 from [place] CAD (coronary artery disease) Myocardial infarction Sudden cardiac Mother , age 96 Diabetes Surgical History (Updated 12/20/20 @ 10:38 by Mary Kay Mireles) History of appendectomy History of cataract surgery History of coronary artery stent placement (09/16/19) History of electrophysiologic study (2009) History of hernia repair History of implantable cardiac defibrillator (ICD) (05/17/10) History of intraocular lens implant History of intravascular stent placement History of left heart catheterization (11/19/20) History of transurethral resection of prostate S/P TURP (status post transurethral resection of prostate) Social History Smoking Status: Never smoker alcohol intake: never substance use type: does not use caffeine: Yes Type: carbonated beverages Number of servings: 1 and coffee Number of servings: 1 what type of physical activity do you participate in: none Lab / Micro Data Result Diagrams: 12/20/20 07:30 12/20/20 07:30 Addendum Addendum: Patient was seen and examined today independently of Guicho Jacobs, he came to the ER with complaints of severe palpitations and increased heart rate as well as chest discomfort radiating into his left arm from his precordial area.. He was noted to be in atrial fibrillation-patient did not had a history of this-and patient was given adenosine with no change in his rhythm, patient refused nitroglycerin but was given Cardizem with resulting decrease in his rate-cardiology was contacted and took the patient to the [facility] for emergent catheterization. Catheterization did not show any occlusive disease that was not present on the previous heart cath in November 2020. The time my examination, patient was in normal sinus rhythm, prior to nursing he had problems passing urine and he was bladder scanned for approximately 860 cc of urine, I directed the patient to have a Medley catheter placed, patient underwent a TURP last Monday and had been off Plavix and aspirin. Cardiology today initially placed the patient on Eliquis in addition to Plavix and aspirin on the patient had slightly hematuria today and I talked with cardiology and they recommended discontinuing the Eliquis. Patient is comfortable with the time my examination and he is in sinus rhythm. On examination he appeared in good health and spirits. Vital signs as documented. Skin warm and dry and without overt rashes. Neck without JVD, neck was supple, trachea midline, thyroid was normal. Lungs clear bilaterally, normal air movement was noted. Heart exam notable for regular rhythm, normal sounds and absence of murmurs, rubs or gallops. Abdomen unremarkable and without evidence of organomegaly, masses, or abdominal aortic enlargement. Bowel sounds are present, abdomen is not distended. Extremities nonedematous, no cyanosis was noted, no clubbing was noted. Neuro: Cranial nerves II through XII are grossly intact, no focal motor deficits were noted, sensation to light touch and pinprick intact, motor exam 5/5 throughout. Psych: Patient is alert and oriented x3, he does not appear anxious or depressed, he does not appear agitated. Patient will remain in ICU in PCU status, I will leave Medley catheter in for now, there is minimal amounts of blood in the Medley without any large clots. I am not sure why the patient went into urinary retention. I have reviewed Guicho Jacobs's history and physical including his medical assessment and plan of care and endorse it with the above additions. Visit Charges Inpatient E&M: 88120 Init Hosp L3
[2020-12-20] MEDS: Lidocaine Jelly 2% 20 ML Syringe (URO-JET) 20 APPLIC TOPICAL (16:16)
[2020-12-20] MEDS: Tamsulosin HCl 0.4 MG Capsule PO (16:39)
[2020-12-20] MEDS: MELATONIN 10 MG TABLET 5 MG PO (23:28)
[2020-12-21] VITALS (7 sets, daily range): BP systolic 103–129; BP diastolic 51–78; PULSE 62–96; RESP 17–21; TEMP 35.9–36.8; O2SAT 93–100
[2020-12-21 04:10] LABS: Absolute Lymphocyte Count 0.86 X10^3/uL (0.83-4.51); Absolute Neutrophil Count 4.1 X10^3/uL (2.0-7.7); Basophil# 0.04 X10^3/uL; Basophil% 0.7 % (0-1); Eosinophil# 0.28 X10^3/uL; Eosinophils% 4.9 % (0-5); Hematocrit 31.6 % (40-54); Hemoglobin 9.8 g/dL (13.0-16.5); Lymphocyte # 0.86 X10^3/ul (0.83-4.51); Lymphocyte % 14.9 % (19-41); Mean Corpuscular Hgb 29.8 pg (27.0-32.0); Monocyte# 0.45 X10^3/uL; Monocyte% 7.8 % (0-10); NRBC Flagged by Analyzer 0 % (0-5); Neutrophil # 4.11 X10^3/uL (2.7-7.7); Neutrophil % 71.4 % (47-70); Platelet Count 153 K/mm3 (150-450); RBC Distribution Width CV 14.7 % (11.6-14.6); RBC Distribution Width SD 51.5 fl (35.1-43.9); Red Blood Count 3.29 M/mm3 (4.6-6.2); White Blood Count 5.8 K/mm3 (4.4-11.0)
[2020-12-21 04:25] LABS: Anion Gap 5 (5-15); BUN 16 mg/dL (7-18); BUN/Creat Ratio 15.1 RATIO (10-20); Calcium,Total 8.3 mg/dL (8.5-10.1); Chloride 107 mmol/L (98-107); Creatinine, Serum 1.06 mg/dL (0.70-1.30); EST Glomerular Filtration Rate 71 mL/min (>60); Est Glom Filt Rate - Afr Amer 85 mL/min (>60); Estimated Creatinine Clearance 53.56 ml/min; Glucose 96 mg/dL (74-106); Potassium 3.9 mmol/L (3.5-5.1); Sodium Level 139 mmol/L (136-145)
[2020-12-21] MEDS: Isosorbide DN 10 MG Tablet PO ×2 (06:05→14:02)
[2020-12-21] MEDS: Aspirin E.C. 81 MG Tablet PO (09:06)
[2020-12-21] MEDS: Tamsulosin HCl 0.4 MG Capsule PO (09:06)
[2020-12-21] MEDS: Metoprolol(XL)Succ 50 MG Tablet PO (09:06)
[2020-12-21] MEDS: amLODIPine 2.5 MG Tablet PO (09:06)
[2020-12-21] MEDS: Clopidogrel Bisulfate 75 MG Tablet PO (09:07)
[2020-12-21] MEDS: Pantoprazole Sodium 40 MG Tablet PO (09:07)
[2020-12-21] MEDS: Ciprofloxacin 500 MG Tablet PO (09:07)
--- NOTE | 2020-12-21 11:40 | CASEMGMT ---
Addendum entered by Audrey Banks 12/21/20 14:47: Pt screened with [facility] Palliative Care Screening Tool for strata 3 and readmission, pt did not meet criteria. Original Note: RN CM readmission note: Prior admission: Admitted from home 11/19/20 for NSTEMI and discharged home 11/20/20. Heart cath done--Compared to the previous angiographic findings from January 2020 there had been little change. Medical therapy recommended. Metoprolol increased and Imdur was added by cardiology. Pt also w/CHF on admit w/BTNP 542.7. Pt was diuresed w/Lasix while hospitalized. Pt discharged home on RA. Pt was to f/u with his PCP and Cardiology @ d/c. Pt was also in ED 11/22/20 for constipation, had Observation admission 12/05/20 thru 12/06/20 for hematuria, and TURP done as an Out-pt on 12/16/20. Current admission: Admitted 12/20/20 for A-fib and unstable angina. Cardiac cath completed: no acute findings. PCP: Dr Pena Specialists: Dr Lawrence-cardiology, Dr Sahu--urology RN CM to room to talk w/pt. He denies having any discharge needs/concerns. He states he has been taking his medications as prescribed and did f/u with PCP, Dr Pena, as instructed post discharge. He had an appt with Allegra Perez, cardiology PA, but had to cancel it d/t he was in the hospital at that time. He plans to reschedule it once he knows when he will be discharged. His also had an appt scheduled w/Dr Sahu tomorrow and he states they may need to reschedule that as well, if he is not discharged prior. Pt states he is still very independent @ home and is still doing the yard work/mowing. He denies having any discharge needs/concerns. Chris MCFARLANDN RN CM Pt screened with [facility] Palliative Care Screening Tool for strata 3, pt did not meet criteria.
--- NOTE | 2020-12-21 11:40 | PCM.DC ---
Discharge Instructions Diet Discharge Diet: No restrictions Activity Discharge Activity: Return to Normal Activity Follow Up Care Test Results: Test results from this visit will be discussed in further detail at your follow-up appointment, if applicable. Discharge Plan Admission Admit Date/Time: 12/20/20 10:36 Primary Reason for Your Visit: Chest pain Attending Provider: Gary Davila Primary Care Provider: Jacques Pena Chi Instructions Patient Instructions: ED Chest Pain, Noncardiac Additional Instructions / Restrictions: Do not take home Eliquis prescription until follow-up with roll sheeting cutter. Discharge Orders/Prescriptions Prescriptions: Continued nitroglycerin 0.4 mg tablet, sublingual 0.4 mg SUBLINGUAL Q5-15M PRN (Reason: chest pain) Qty: 25 RF: 3 pantoprazole 40 MG tablet 40 mg PO DAILY RF: 0 clopidogrel [Plavix] 75 mg Tablet 75 mg PO DAILY RF: 0 Hold Instructions: Resume on 12/30/20. aspirin 81 mg Tablet 81 mg PO DAILY RF: 0 Hold Instructions: Resume on 12/30/20. acetaminophen 325 mg Capsule 325 mg PO Q6H PRN (Reason: Pain) RF: 0 isosorbide dinitrate 10 MG tablet 10 mg PO TID RF: 0 metoprolol succinate 100 mg tablet extended release 24 hr 50 mg PO DAILY RF: 0 amlodipine 2.5 mg tablet 2.5 mg PO DAILY RF: 0 tamsulosin 0.4 MG capsule 0.4 mg PO DAILY RF: 0 ciprofloxacin HCl [Cipro] 500 mg tablet 500 mg PO BID Qty: 14 RF: 0 melatonin 5 mg Tablet 5 mg PO QHS RF: 0 testosterone 20.25 mg/1.25 gram (1.62 %) gel in metered-dose pump 1 pump TOPICAL DAILY Qty: 150 RF: 5 Referrals / Follow Up: Roque Lawrence MD [STAFF PHYSICIAN] - Jacques Pena Chi, MD [Primary Care Provider] - Disposition Disposition (needs filled in before D/C Order can be placed): Home, self care
--- NOTE | 2020-12-21 12:39 | DS.PCM_ITS ---
Providers Date of Admission: 12/20/20 Primary Care Physician: Dr. Jacques Pena MD Reason For Visit: AFIB, UNSTABLE ANGINA Diagnosis Discharge Diagnosis (1) History of non-ST elevation myocardial infarction (NSTEMI): Status: Chronic Code(s): I25.2 - Old myocardial infarction (2) History of coronary artery stent placement: Status: Chronic Code(s): Z95.5 - Presence of coronary angioplasty implant and graft (3) Ischemic cardiomyopathy: Status: Chronic Code(s): I25.5 - Ischemic cardiomyopathy (4) Chronic systolic (congestive) heart failure: Status: Chronic Code(s): I50.22 - Chronic systolic (congestive) heart failure (5) Essential (primary) hypertension: Status: Chronic Code(s): I10 - Essential (primary) hypertension (6) HLD (hyperlipidemia): Status: Chronic Code(s): E78.5 - Hyperlipidemia, unspecified Qualifiers: Hyperlipidemia type: pure hypercholesterolemia Qualified Code(s): E78.00 - Pure hypercholesterolemia, unspecified; E78.0 - Pure hypercholesterolemia (7) Left carotid artery stenosis: Status: Chronic Code(s): I65.22 - Occlusion and stenosis of left carotid artery Medications at Discharge Home Medications pantoprazole 40 mg PO DAILY 10/29/16 testosterone 20.25 mg/1.25 gram (1.62 %) transdermal gel pump 1 pump TOPICAL DAILY #150 g 04/06/20 nitroglycerin 0.4 mg sublingual tablet 0.4 mg SUBLINGUAL Q5-15M PRN #25 tab 07/22/20 melatonin 5 mg PO QHS 12/06/20 acetaminophen 325 mg PO Q6H PRN 12/10/20 amlodipine 2.5 mg PO DAILY 12/10/20 aspirin 81 mg PO DAILY 12/10/20 clopidogrel [Plavix] 75 mg PO DAILY 12/10/20 isosorbide dinitrate 10 mg PO TID 12/10/20 metoprolol succinate 50 mg PO DAILY 12/10/20 tamsulosin 0.4 mg PO DAILY 12/10/20 ciprofloxacin HCl [Cipro] 500 mg PO BID #14 tab 12/16/20 Hospital Course Summary of Care Provided Minutes Spent on Discharge: 35 Hospital Course: Patient is an 85-year-old male who presents to the ED at [facility] [place] on 12/20/2020 with a chief complaint of chest pain that is substernal and radiates to his left arm. Patient is being admitted to PCU for cardiac monitoring s/p cardiac catheterization for chest pain in the setting of A. fib with RVR. Cardiac catheterization on 12/19/2020 demonstrated no acute changes from recent angiogram which was obtained 2 weeks ago. Patient already follows with cardiology as an outpatient and is appropriately managed on rate controlling medications. Cardiology consulted and agrees that patient can return home and see the door puller as an outpatient. 1) Chest pain in the setting of A-Fib w/ RVR Already on rate controlling medications as above. Follows with cardiology as an outpatient and will continue to do so. Aspirin and Plavix can be continued upon discharge, but hold home Eliquis until cardiology follow-up. Catheterization completed on 11/20/2020 demonstrated an ejection fraction of 25%, severe global hypokinesis and depressed left ventricular systolic function, a 20% restenosis in the left main artery and occlusion of the LAD. Plan; resume home cardiac regimen: Amlodipine, metoprolol succinate, aspirin, plavix and isosorbide dinitrate. Hold home Eliquis. 2) HTN Stable. 3) Chronic systolic CHF As above. 4) BPH Patient recently underwent TURP for investigation of hematuria. Aspirin, Plavix and Eliquis were held due to bleeding risk. Medley catheter removed today and patient successfully voided without complication. Continue Flomax. 5) GERD Continue pantoprazole. Patient seen by Guicho Jacobs PA-C, under the supervision of Dr. Davila Physical Exam Narrative Patient is an 85-year-old male comfortably resting in bed, alert and oriented x 3. Patient reports no progression in symptoms from yesterday and feels strong enough to return home. Denies chest pain, shortness of breath, palpitations, hemoptysis, productive cough, fever, chills, N/V/D. Patient observed to void urine without assistance of Medley catheter. Const alert, oriented x3 and no apparent distress HEENT normocephalic, head/scalp atraumatic and hearing grossly normal bilaterally Eyes PERRL and EOMs intact bilaterally Neck no lymphadenopathy, supple and no JVD Resp normal respiratory effort, no retractions, no use of accessory muscles and clear to auscultation bilaterally Cardio regular rate, regular rhythm, no murmurs and no JVD GI normal to inspection, nondistended, normoactive bowel sounds, soft to palpation, non-tender and non-distended Extremity normal to inspection, full ROM and no clubbing, cyanosis or edema Skin no rashes or lesions noted and no wounds Neuro CN's II-XII intact bilaterally Psych affect normal ABG / Lab / Microbiology Data Result Diagrams: 12/21/20 04:00 12/21/20 04:00 Laboratory: Laboratory Results - last 24 hr 12/21/20 12/21/20 04:00 04:00 WBC 5.8 RBC 3.29 L Hgb 9.8 L Hct 31.6 L MCV 96.0 H MCH 29.8 MCHC 31.0 L RDW Std Deviation 51.5 H RDW Coeff of Dane 14.7 H Plt Count 153 MPV 12.0 Immature Gran % (Auto) 0.300 Neut % (Auto) 71.4 H Lymph % (Auto) 14.9 L [place] % (Auto) 7.8 Eos % (Auto) 4.9 Baso % (Auto) 0.7 Absolute Neuts (auto) 4.1 Absolute Lymphs (auto) 0.86 Nucleated RBC % 0 Sodium 139 Potassium 3.9 Chloride 107 Carbon Dioxide 27.0 Anion Gap 5 BUN 16 Creatinine 1.06 Estim Creat Clear Calc 53.56 Est GFR (MDRD) Af Amer 85 Est GFR (MDRD) Non-Af 71 BUN/Creatinine Ratio 15.1 Glucose 96 Calcium 8.3 L D/C Instructions Discharge Diet: No restrictions Discharge Activity: Return to Normal Activity Meaningful Use Info Meaningful Use Diagnoses (Choose all that apply): None applicable Discharge Plan Admission Admit Date/Time: 12/20/20 10:36 Primary Reason for Your Visit: Chest pain Attending Provider: Gary Davila Primary Care Provider: Jacques Pena Chi Instructions Patient Instructions: ED Chest Pain, Noncardiac Additional Instructions / Restrictions: Do not take home Eliquis prescription until follow-up with door puller. Discharge Orders/Prescriptions Prescriptions: Continued nitroglycerin 0.4 mg tablet, sublingual 0.4 mg SUBLINGUAL Q5-15M PRN (Reason: chest pain) Qty: 25 RF: 3 pantoprazole 40 MG tablet 40 mg PO DAILY RF: 0 clopidogrel [Plavix] 75 mg Tablet 75 mg PO DAILY RF: 0 Hold Instructions: Resume on 12/30/20. aspirin 81 mg Tablet 81 mg PO DAILY RF: 0 Hold Instructions: Resume on 12/30/20. acetaminophen 325 mg Capsule 325 mg PO Q6H PRN (Reason: Pain) RF: 0 isosorbide dinitrate 10 MG tablet 10 mg PO TID RF: 0 metoprolol succinate 100 mg tablet extended release 24 hr 50 mg PO DAILY RF: 0 amlodipine 2.5 mg tablet 2.5 mg PO DAILY RF: 0 tamsulosin 0.4 MG capsule 0.4 mg PO DAILY RF: 0 ciprofloxacin HCl [Cipro] 500 mg tablet 500 mg PO BID Qty: 14 RF: 0 melatonin 5 mg Tablet 5 mg PO QHS RF: 0 testosterone 20.25 mg/1.25 gram (1.62 %) gel in metered-dose pump 1 pump TOPICAL DAILY Qty: 150 RF: 5 Referrals / Follow Up: Roque Lawrence MD [STAFF PHYSICIAN] - Jacques Pena Chi, MD [Primary Care Provider] - Disposition Disposition (needs filled in before D/C Order can be placed): Home, self care
--- NOTE | 2020-12-21 14:49 | CHAPLAIN ---
Type of Pastoral Visit _x__ Initial Visit ___ Follow-up Visit ___ On-call Visit ___ General Patient Visit ___ Spiritual Assessment ___ Family Conference ___ Bereavement ___ Rapid Response ___ Code Blue ___ Other (describe below) Pastoral Care Referral From _x__ Patient ___ Family ___ Nurse ___ Physician ___ Manager Bakery ___ Vamp Seamer ___ Other (describe below) Sacrament/Intervention _x__ Active listening ___ Anointing ___ Faith ___ Bereavement ___ Communion ___ Yun exploration ___ _x__ Life review _x__ Prayer ___ Reconciliation ___ Sacrament of Sick ___ Supportive presence ___ Wedding ___ Other (describe below) Pastoral Comments patient is doing much better and is very complementary of care received at hospital;
--- NOTE | 2020-12-22 16:15 | CASEMGMT ---
CHRISTIN ENRIQUEZ Discharge Follow-up Phone Call: GLEN: Lisa Strata: 3 Call Date: [id number] Discharge Date: 12/22/20 Time of Call: 12/21/20 Duration: 5 min Admitting Diagnosis: Afib, unstable angina RN CM complete follow-up phone call after recent hospitalization. Patient states he is doing well. Patient had follow-up with Dr. Sahu and clarified when to restart plavix. Patient states he has left a message with Dr. Lawrence's office to schedule follow-up but no one has returned call. Patient states that he was confused with all the prompt and not sure if he did it right. This RN CM offered to reach out to Dr. Lawrence's office and request follow-up with patient. Patient voiced appreciation for call. CHRISTIN ENRIQUEZ called and left message with Dr. Lawrence's receptionist/telephone operator and requested they call the patient to clarify follow-up appt.
== END 2020-12-21 15:15 | disposition home or self-care (01) | DRG 287 ==
LOC: ED 08:33 → ICU 09:37
PROVIDERS: Physician Assistant; Admitting Provider Internal Medicine; Emergency Provider Emergency Medicine; PCP Family Medicine Geriatric Medicine; Visit Provider Internal Medicine
DX: I48.0 Paroxysmal atrial fibrillation (principal); I50.22 Chronic systolic (congestive) heart failure; E78.5 Hyperlipidemia, unspecified; I11.0 Hypertensive heart disease with heart failure; I25.5 Ischemic cardiomyopathy; M19.90 Unspecified osteoarthritis, unspecified site; I25.10 Atherosclerotic heart disease of native coronary artery without angina pectoris; K21.9 Gastro-esophageal reflux disease without esophagitis; K44.9 Diaphragmatic hernia without obstruction or gangrene; N40.0 Benign prostatic hyperplasia without lower urinary tract symptoms; I65.22 Occlusion and stenosis of left carotid artery; I25.2 Old myocardial infarction; N40.1 Benign prostatic hyperplasia with lower urinary tract symptoms; R33.8 Other retention of urine; M99.05 Segmental and somatic dysfunction of pelvic region; M99.02 Segmental and somatic dysfunction of thoracic region; Z95.5 Presence of coronary angioplasty implant and graft; Z79.899 Other long term (current) drug therapy; Z79.02 Long term (current) use of antithrombotics/antiplatelets; Z79.82 Long term (current) use of aspirin; Z95.810 Presence of automatic (implantable) cardiac defibrillator
CPT/HCPCS: 71045; 80048; 83735; 83880; 84484; 85025; 93005; 93458; 99285; J7030; J7120; Q9967; A4216; C1769; C1887; C1894; J0744; J2405

== ENCOUNTER → 2020-12-28 10:41 | Outpatient (CLI) | payer MEDICARE, OTHER, SELFPAY ==
[2020-04-02 11:50] VITALS: BMI 26.2
[2020-12-20 10:14] VITALS: BMI 25.8
--- NOTE | 2020-12-28 10:45 | RAD_ITS ---
STUDY: X-RAY - LUMBOSACRAL SPINE REASON FOR EXAM: Male, 85 years old. LOW BACK PAIN TECHNIQUE: 6 view(s) of the lumbosacral spine were obtained including flexion and extension and oblique views.. COMPARISON: None FINDINGS: Normal lumbar lordosis. There is a mild levoscoliosis of the lumbar spine. There is normal alignment of the vertebrae. There is multilevel endplate spondylosis of the lumbar vertebrae. There is multi-level degenerative disc disease with multi-level disc space narrowing. Facet joint osteoarthritis. Normal bilateral sacral ala, sacroiliac joints, and visualized sacrum. There is a 1.7 cm calculus in the lower pole calyx of the left kidney. Calcific plaque of the abdominal aorta. RAD/L/S Spine w Bend Min 6 Vw IMPRESSION: Degenerative changes of the spine, as detailed above. Electronically Signed: Xander Flynn MD at 14:36 EDT , Service support ,
== END ==
PROVIDERS: PCP Family Medicine Geriatric Medicine; Referring Provider Family Medicine Geriatric Medicine; Visit Provider Family Medicine Geriatric Medicine
DX: M54.5 Low back pain (principal)
CPT/HCPCS: 72114

== ENCOUNTER 2020-12-31 23:41 | Emergency (ER) | payer MEDICARE, OTHER, SELFPAY ==
[2020-04-02 11:50] VITALS: BMI 26.2
[2020-12-20 10:14] VITALS: BMI 25.8
[2020-12-31 23:41] VITALS: BP 145/79; PULSE 82; RESP 16; TEMP 36.6; O2SAT 98; BMI 21.4
[2021-01-01 00:20] VITALS: RESP 18
--- NOTE | 2021-01-01 01:46 | EDS_ITS ---
HPI HPI - GI History of Present Illness Chief Complaint: Constipation Informant: patient Narrative Narrative: Patient is a 85-year-old male with extensive past medical history and ongoing issues with constipation presenting with difficulty having a bowel movement. Patient states his last bowel movement was 5 days ago. He notes he is only able to have a bowel movement after taking magnesium citrate. He has been consistently passing gas to the past few days. He is continue to have pressure in his rectum and pain associated with it. He tried taking magnesium citrate last night and again this morning (half of bottle each time) and has been taking Colace daily. He tried a Fleet enema prior to arrival but only had a small amount of brown liquid stool but no resolution of his symptoms. He came to emergency room for further help with this. Patient denies any associate abdominal pain. He denies any nausea or vomiting. No other complaints at this time. [facility] Medical History Arthritis Atherosclerosis of coronary artery of [place] heart with angina pectoris Atrial fibrillation Bruising Cancer Carotid artery disease Chronic indwelling Medley catheter Chronic systolic (congestive) heart failure Congestive heart failure (CHF) DDD (degenerative disc disease) Essential (primary) hypertension GERD (gastroesophageal reflux disease) GERD (gastroesophageal reflux disease) Hiatal hernia High cholesterol History of non-ST elevation myocardial infarction (NSTEMI) (11/19/20) HLD (hyperlipidemia) Hypertension ICD (implantable cardioverter-defibrillator) in place Irregular heart beat Ischemic cardiomyopathy Left carotid artery stenosis Myocardial infarct Myocardial infarct Non-smoker Nonsustained ventricular tachycardia 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 infarction Pacemaker Polycythemia Segmental and somatic dysfunction of pelvic region Segmental and somatic dysfunction of thoracic region Shortness of breath on exertion Sinus drainage TIA (transient ischemic attack) TIA (transient ischemic attack) Wears dentures Wears glasses Home Medications pantoprazole 40 mg PO DAILY 10/29/16 [History Last Taken 08/13/19] testosterone 20.25 mg/1.25 gram (1.62 %) transdermal gel pump 1 pump TOPICAL DAILY #150 g 04/06/20 [Rx Last Taken Unknown] nitroglycerin 0.4 mg sublingual tablet 0.4 mg SUBLINGUAL Q5-15M PRN #25 tab 07/22/20 [Rx Last Taken Unknown] melatonin 5 mg PO QHS 12/06/20 [History Last Taken Unknown] acetaminophen 325 mg PO Q6H PRN 12/10/20 [History Last Taken Unknown] amlodipine 2.5 mg PO DAILY 12/10/20 [History Last Taken Unknown] aspirin 81 mg PO DAILY 12/10/20 [History Last Taken 11/30/20 08:00] clopidogrel [Plavix] 75 mg PO DAILY 12/10/20 [History Last Taken 11/30/20] isosorbide dinitrate 10 mg PO TID 12/10/20 [History Last Taken Unknown] metoprolol succinate 50 mg PO DAILY 12/10/20 [History Last Taken Unknown] tamsulosin 0.4 mg PO DAILY 12/10/20 [History Last Taken Unknown] ciprofloxacin HCl [Cipro] 500 mg PO BID #14 tab 12/16/20 [Rx Last Taken Unknown] Allergy/AdvReac Type Severity Reaction Status Date / Time hydrochlorothiazide Allergy Severe Severe Verified 12/31/20 23:43 itching rash promethazine [From Phenergan] Allergy Other Verified 12/31/20 23:43 ranolazine [From Ranexa] AdvReac Severe Rash Verified 12/31/20 23:43 omeprazole AdvReac Unknown Verified 12/31/20 23:43 Phenothiazines AdvReac Unknown Verified 12/31/20 23:43 [id number] Reductase AdvReac myalgias Verified 12/31/20 23:43 Inhibitor PHENEGRANZOLE AdvReac Unknown Uncoded 12/31/20 23:43 Family History Father , Age 37 from [place] CAD (coronary artery disease) Myocardial infarction Sudden cardiac Mother , age 96 Diabetes Surgical History History of appendectomy History of cataract surgery History of coronary artery stent placement (09/16/19) History of electrophysiologic study (2009) History of hernia repair History of implantable cardiac defibrillator (ICD) (05/17/10) History of intraocular lens implant History of intravascular stent placement History of left heart catheterization (11/19/20) History of transurethral resection of prostate S/P TURP (status post transurethral resection of prostate) Social History Smoking Status: Never smoker alcohol intake: never substance use type: does not use caffeine: Yes Type: carbonated beverages Number of servings: 1 and coffee Number of servings: 1 what type of physical activity do you participate in: none ROS ROS ED Constitutional Constitutional ED: Denies chills, fever(s) or malaise Eyes Eyes: Denies blurry vision or loss of vision ENT ENT ED: Denies rhinorrhea or sore throat Cardiovascular Cardiovascular: Denies chest pain or dizziness Respiratory/Chest Respiratory/Chest: Denies cough or dyspnea Gastrointestinal Gastrointestinal: Reports constipation; Denies abdominal pain, nausea or vomiting Genitourinary Genitourinary ED: Denies dysuria or hematuria Musculoskeletal Musculoskeletal: Denies arthralgias or myalgias Integumentary Denies rash or wounds Neurologic Neurologic: Denies focal weakness or headache(s) Psychiatric Psychiatric: Denies anxiety or behavioral changes EXAM Physical Exam Const Vital Signs: 12/31/20 23:41 01/01/21 00:20 Temperature 97.8 F Temperature Source Oral Pulse Rate 82 Respiratory Rate 16 18 Blood Pressure 145/79 H Blood Pressure Mean 101 Pulse Ox 98 Oxygen Delivery Method Room Air Positive well nourished, well developed and no apparent distress General Appearance ED: well developed HEENT Reports normocephalic atraumatic Nose: no nasal discharge General Ear: hearing grossly impaired External Ear: external ears normal Mouth ED: Yes moist mucous membranes abnormal Mouth: moist mucous membranes abnormal Eyes PERRL and EOMs intact bilaterally Neck full ROM and no meningeal signs Chest Wall inspection of chest normal Resp normal respiratory effort and normal air movement Cardio regular rate and regular rhythm GI normal to inspection, nondistended, normoactive bowel sounds, non-tender and non-distended GI Narrative: Hard stool appreciated in the rectum at the tip of my fingers. External hemorrhoids are present. No blood noted on rectal exam. Stool is brown. Auscultation: normoactive bowel sounds Palpation: soft Extremity normal to inspection and full ROM Neuro oriented x3 and no focal motor deficits Psych mental status grossly normal and thought process normal Skin no rashes or lesions noted and no wounds MDM MDM MDM Narrative Medical decision making narrative: Patient value for constipation. He is continue to pass gas. Not have associated shailesh pain, nausea or vomiting. He has an ongoing issue with constipation. On rectal exam patient has a large amount of stool in the rectal vault but I am not able to remove it manually as it is too high out. Patient is given a soapsuds enema and has a large bowel movement. He has improvement of his rectal pressure and feels much better. At this time I do not think he is a small bowel obstruction. I do not think he requires imaging or blood work. He will be discharged home to take MiraLAX for further bowel cleanout. Patient is counseled on signs and symptoms requiring return to the emergency room. Patient verbalizes agreement and understand this plan. Patient discharged home in stable and improved condition. Treatment and Re-Evaluation Comments:: Soapsuds enema, good bowel movement in the ER and discharged home Discharge Plan Triage Chief Complaint: Constipation ED Provider: Frida Quintana Dx/Rx/DC Orders Clinical Impression: Constipation Instructions: ED Constipation (Adult) Prescriptions: No Action nitroglycerin 0.4 mg tablet, sublingual 0.4 mg SUBLINGUAL Q5-15M PRN (Reason: chest pain) Qty: 25 RF: 3 pantoprazole 40 MG tablet 40 mg PO DAILY RF: 0 clopidogrel [Plavix] 75 mg Tablet 75 mg PO DAILY RF: 0 Hold Instructions: Resume on 12/30/20. aspirin 81 mg Tablet 81 mg PO DAILY RF: 0 Hold Instructions: Resume on 12/30/20. acetaminophen 325 mg Capsule 325 mg PO Q6H PRN (Reason: Pain) RF: 0 isosorbide dinitrate 10 MG tablet 10 mg PO TID RF: 0 metoprolol succinate 100 mg tablet extended release 24 hr 50 mg PO DAILY RF: 0 amlodipine 2.5 mg tablet 2.5 mg PO DAILY RF: 0 tamsulosin 0.4 MG capsule 0.4 mg PO DAILY RF: 0 ciprofloxacin HCl [Cipro] 500 mg tablet 500 mg PO BID Qty: 14 RF: 0 melatonin 5 mg Tablet 5 mg PO QHS RF: 0 testosterone 20.25 mg/1.25 gram (1.62 %) gel in metered-dose pump 1 pump TOPICAL DAILY Qty: 150 RF: 5 Primary Care Provider: Jacques Pena Chi Referrals: Jacques Pena Chi, MD [Primary Care Provider] - Activity Restrictions/Additional Instructions: Drink more fluids especially water. Take a capful of MiraLAX daily. If you start to have diarrhea you can decrease to every other day. If needed you can also add in senna instead of Colace. This is available [id number]. Disposition Disposition: Home, self care
[2021-01-01 03:32] VITALS: BP 115/65; PULSE 89; RESP 16; O2SAT 98
== END 2021-01-01 03:33 | disposition home or self-care (01) ==
PROVIDERS: Emergency Provider Emergency Medicine; PCP Family Medicine Geriatric Medicine
DX: K59.00 Constipation, unspecified (principal); I25.119 Atherosclerotic heart disease of native coronary artery with unspecified angina pectoris; Z95.0 Presence of cardiac pacemaker
CPT/HCPCS: 99284

== ENCOUNTER 2021-04-14 23:53 | Inpatient (IN) | payer MEDICARE, OTHER, SELFPAY ==
[2020-04-02 11:50] VITALS: BMI 26.2
[2021-04-14 23:54] VITALS: BP 158/88; PULSE 91; RESP 18; TEMP 36.2; O2SAT 96; BMI 26.1
[2021-04-15] VITALS (16 sets, daily range): BP systolic 99–145; BP diastolic 41–86; PULSE 69–89; RESP 16–21; TEMP 36.3–36.9; O2SAT 88–100; BMI 25.0
--- NOTE | 2021-04-15 00:06 | EKG12_ITS ---
Test Reason : CP Blood Pressure : / mmHG Vent. Rate : 093 BPM Atrial Rate : 093 BPM P-R Int : 160 ms QRS Dur : 152 ms QT Int : 408 ms P-R-T Axes : 046 -35 115 degrees QTc Int : 507 ms Sinus rhythm with occasional Premature ventricular complexes Left axis deviation Left bundle branch block Abnormal ECG Confirmed by ELISABET ROCHA, SERGIO ([id number]), editor book BITA ROBB ([id number]) on 04/19/2021 12:49:27 PM Referred By: RONALD Confirmed By:SERGIO BHANDARI MD
--- NOTE | 2021-04-15 00:06 | RAD_ITS ---
STUDY: X-RAY CHEST REASON FOR EXAM: Male, 86 years old. Chest pain TECHNIQUE: Portable, upright, AP chest radiograph COMPARISON: 12/20/2020 FINDINGS: Right chest dual-lead cardiac device redemonstrated. The lungs are clear and expanded. There is no demonstrated pleural abnormality. There is borderline cardiomegaly. Normal mediastinum and agapito. Normal visualized pulmonary arteries. Normal visualized aortic arch and descending thoracic aorta. Normal visualized thoracic spine. Normal visualized ribs, clavicles, and shoulders. There is no demonstrated abnormality of the visualized soft tissue structures of the upper abdomen. RAD/Chest 1 View (Portable) IMPRESSION: No acute abnormal cardiopulmonary finding. Electronically Signed: Cam Skinner MD at 1:04 EDT Tel , Service support ,
[2021-04-15 00:14] LABS: Absolute Lymphocyte Count 1.59 X10^3/uL (0.83-4.51); Absolute Neutrophil Count 4.5 X10^3/uL (2.0-7.7); Basophil# 0.05 X10^3/uL; Basophil% 0.7 % (0-1); Eosinophil# 0.28 X10^3/uL; Hematocrit 40.9 % (40-54); Hemoglobin 13.4 g/dL (13.0-16.5); Lymphocyte # 1.59 X10^3/ul (0.83-4.51); Lymphocyte % 22.9 % (19-41); Mean Corp Hgb Conc 32.8 g/dL (32-36); Mean Corpuscular Hgb 29.7 pg (27.0-32.0); Mean Corpuscular Volume 90.7 fL (80-94); Mean Platelet Vol. 12.7 fl (6.2-12.0); Monocyte# 0.49 X10^3/uL; Monocyte% 7.1 % (0-10); NRBC Flagged by Analyzer 0 % (0-5); Neutrophil # 4.49 X10^3/uL (2.7-7.7); Neutrophil % 64.9 % (47-70); POSITIVE MORPHOLOGY YES; Platelet Count 191 K/mm3 (150-450); RBC Distribution Width CV 14.6 % (11.6-14.6); RBC Distribution Width SD 48.4 fl (35.1-43.9); Red Blood Count 4.51 M/mm3 (4.6-6.2); White Blood Count 6.9 K/mm3 (4.4-11.0)
[2021-04-15 00:17] LABS: Differential Indicated SCAN CRITERIA MET
[2021-04-15] MEDS: Aspirin 81 MG TAB.CHEW 324 MG PO (00:28)
[2021-04-15 00:41] LABS: Anion Gap 4 (5-15); BUN 23 mg/dL (7-18); BUN/Creat Ratio 18.5 RATIO (10-20); Calcium,Total 9.3 mg/dL (8.5-10.1); Chloride 105 mmol/L (98-107); Creatinine, Serum 1.24 mg/dL (0.70-1.30); EST Glomerular Filtration Rate 59 mL/min (>60); Est Glom Filt Rate - Afr Amer 71 mL/min (>60); Estimated Creatinine Clearance 44.97 ml/min; Glucose 114 mg/dL (74-106); Potassium 3.5 mmol/L (3.5-5.1); Sodium Level 138 mmol/L (136-145); Troponin-I HS 144 pg/mL (3.0-78.0)
--- NOTE | 2021-04-15 00:47 | EDS_ITS ---
HPI History of Present Illness Chief Complaint: Chest Pain Narrative Narrative: 86-year-old male presenting with chest pain which he states is been on and off for a couple of weeks. He describes as pressure-like. When the chest pressure comes on he sits and rests until it goes away. Patient states that last night he broke out into sweats for a while. He denies fever or chills. He has nitroglycerin but has not taken this. Patient has a history of CAD multiple MIs as well as cardiac stents, hyperlipidemia, A. fib, hypertension. Patient does states he has difficulty eating and he does not feel like he wants to eat. He does not describe this as nauseous. [facility] Medical History Acute blood loss anemia Arthritis Atherosclerosis of coronary artery of [place] heart with angina pectoris Bruising Cancer Carotid artery disease Chronic indwelling Medley catheter Chronic systolic (congestive) heart failure Constipation DDD (degenerative disc disease) Essential (primary) hypertension GERD (gastroesophageal reflux disease) Hematuria Hiatal hernia High cholesterol History of non-ST elevation myocardial infarction (NSTEMI) (11/19/20) HLD (hyperlipidemia) ICD (implantable cardioverter-defibrillator) in place Irregular heart beat Ischemic cardiomyopathy Left bundle branch block (LBBB) Left carotid artery stenosis Myocardial infarct Non-smoker Nonsustained ventricular tachycardia 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 infarction Pacemaker Paroxysmal atrial fibrillation Polycythemia Segmental and somatic dysfunction of pelvic region Segmental and somatic dysfunction of thoracic region Shortness of breath on exertion Sinus drainage TIA (transient ischemic attack) Wears dentures Wears glasses Home Medications pantoprazole 40 mg PO DAILY 10/29/16 [History Last Taken 08/13/19] nitroglycerin 0.4 mg sublingual tablet 0.4 mg SUBLINGUAL Q5-15M PRN #25 tab 07/22/20 [Rx Last Taken Unknown] melatonin 5 mg PO QHS 12/06/20 [History Last Taken Unknown] acetaminophen 325 mg PO Q6H PRN 12/10/20 [History Last Taken Unknown] amlodipine 2.5 mg PO DAILY 12/10/20 [History Last Taken Unknown] aspirin 81 mg PO DAILY 12/10/20 [History Last Taken 11/30/20 08:00] clopidogrel [Plavix] 75 mg PO DAILY 12/10/20 [History Last Taken 11/30/20] metoprolol succinate 50 mg tablet,extended release 24 hr 50 mg PO DAILY #90 tab 01/12/21 [Rx Last Taken Unknown] apixaban 2.5 mg tablet 2.5 mg PO BID #60 tab 02/16/21 [Rx Last Taken Unknown] isosorbide mononitrate 30 mg tablet,extended release 24 hr 30 mg PO DAILY #60 tab 03/02/21 [Rx Last Taken Unknown] Allergy/AdvReac Type Severity Reaction Status Date / Time hydrochlorothiazide Allergy Severe Severe Verified 04/14/21 23:59 itching rash promethazine [From Phenergan] Allergy Other Verified 04/14/21 23:59 ranolazine [From Ranexa] AdvReac Severe Rash Verified 04/14/21 23:59 omeprazole AdvReac Unknown Verified 04/14/21 23:59 Phenothiazines AdvReac Unknown Verified 04/14/21 23:59 Ttgszew-Bwf-Rox Reductase AdvReac myalgias Verified 04/14/21 23:59 Inhibitor PHENEGRANZOLE AdvReac Unknown Uncoded 04/14/21 23:59 Family History Father , Age 37 from [place] CAD (coronary artery disease) Myocardial infarction Sudden cardiac Mother , age 96 Diabetes Surgical History History of appendectomy History of cataract surgery History of coronary artery stent placement (09/16/19) History of electrophysiologic study (2009) History of hernia repair History of implantable cardiac defibrillator (ICD) (05/17/10) History of intraocular lens implant History of intravascular stent placement History of left heart catheterization (12/20/20) History of transurethral resection of prostate (12/16/20) Social History Smoking Status: Never smoker alcohol intake: never substance use type: does not use caffeine: Yes Type: carbonated beverages Number of servings: 1 and coffee Number of servings: 1 what type of physical activity do you participate in: none ROS ROS ED Constitutional Constitutional ED: Reports sweats; Denies chills or fever(s) Eyes Eyes: Denies blurry vision or change in vision ENT ENT ED: Denies rhinorrhea or sore throat Cardiovascular Cardiovascular: Reports chest pain and palpitations Respiratory/Chest Respiratory/Chest: Denies cough or dyspnea Gastrointestinal Gastrointestinal: Denies abdominal pain, diarrhea, nausea or vomiting Genitourinary Genitourinary ED: Denies dysuria or hematuria Musculoskeletal Musculoskeletal: Denies arthralgias or myalgias Integumentary Denies Abrasions or rash Neurologic Neurologic: Denies headache(s) or paresthesias EXAM Physical Exam Const Vital Signs: 04/14/21 23:54 04/15/21 01:07 04/15/21 01:08 Temperature 97.2 F L Temperature Source Temporal Pulse Rate 91 Respiratory Rate 18 Blood Pressure 158/88 H 138/83 H Blood Pressure Mean 111 Pulse Ox 96 Oxygen Delivery Method Room Air Nasal Cannula Oxygen Flow Rate (L/min) 2 04/15/21 01:13 04/15/21 01:18 04/15/21 01:20 Temperature 97.4 F L Temperature Source Temporal Pulse Rate 73 81 78 Respiratory Rate 19 H Blood Pressure 132/80 H 130/80 H 130/80 H Blood Pressure Mean 96 Pulse Ox 92 Oxygen Delivery Method Nasal Cannula Oxygen Flow Rate (L/min) 4 04/15/21 01:26 Temperature Temperature Source Pulse Rate Respiratory Rate 21 H Blood Pressure Blood Pressure Mean Pulse Ox Oxygen Delivery Method Oxygen Flow Rate (L/min) Positive well nourished General Appearance ED: NAD HEENT normocephalic and atraumatic Eyes PERRL and EOMs intact bilaterally Resp normal respiratory effort Effort and Inspection: respiratory distress Cardio regular rate and regular rhythm Neuro oriented x3 Sensorium / Orientation: awake Psych mental status grossly normal Skin no rashes or lesions noted MDM MDM MDM Narrative Medical decision making narrative: Patient presenting with intermittent chest pain for the last couple of weeks. Last night he said he was diaphoretic. He does state that he is a little bit short of breath on reevaluation. He has been on oxygen while here but has not been hypoxic. EKG on my interpretation shows a sinus rhythm with a ventricular rate of 93 bpm with occasional PVC. There is a left bundle branch block pattern. This is not significantly changed from previous EKG 20 Dec 2020. Patient CBC is normal. CBC is normal. Troponin returned at 144. Patient apparently had a catheterization in December by Dr. Dailey. I did discuss the case with him and he recommended putting the patient on a heparin drip keeping him n.p.o. and giving him nitro as needed for pain. I discussed this with the hospitalist who will admit him. Patient is to continue his antiplatelet medication in hospital. Patient is stable on admission. Covid testing done in the ER is negative. Impression: 1. NSTEMI Lab Data Attestation: I reviewed the patient's lab results. Labs: Laboratory Results - last 24 hr 04/15/21 04/15/21 04/15/21 00:10 00:10 00:10 WBC 6.9 RBC 4.51 L Hgb 13.4 Hct 40.9 MCV 90.7 MCH 29.7 MCHC 32.8 RDW Std Deviation 48.4 H RDW Coeff of Dane 14.6 Plt Count 191 MPV 12.7 H Immature Gran % (Auto) 0.400 Neut % (Auto) 64.9 Lymph % (Auto) 22.9 [place] % (Auto) 7.1 Eos % (Auto) 4.0 Baso % (Auto) 0.7 Absolute Neuts (auto) 4.5 Absolute Lymphs (auto) 1.59 Nucleated RBC % 0 Atypical Lymphocytes 1+ PT 15.0 H INR 1.3 APTT 35.7 Sodium 138 Potassium 3.5 Chloride 105 Carbon Dioxide 29.0 Anion Gap 4 L BUN 23 H Creatinine 1.24 Estim Creat Clear Calc 44.97 Est GFR (MDRD) Af Amer 71 Est GFR (MDRD) Non-Af 59 L BUN/Creatinine Ratio 18.5 Glucose 114 H Calcium 9.3 Troponin I High Sens 144 H* Radiography Diagnostic Testing: Radiology Impression Chest X-Ray 04/15/21 00:06 IMPRESSION: No acute abnormal cardiopulmonary finding. Electronically Signed: Cam Skinner MD at 1:04 EDT Tel , Service support , Discharge Plan Triage Chief Complaint: Chest Pain ED Provider: Hai Mireles Dx/Rx/DC Orders Primary Care Provider: Jacques Pena Chi
[2021-04-15] MEDS: Nitroglycerin SL (ED/IMG/CATH) 0.4 MG TABLET SL ×3 (01:08→01:18)
[2021-04-15 01:46] LABS: Atypical Lymphocyte 1+ %
[2021-04-15 01:48] LABS: International Normalized Ratio 1.3
[2021-04-15 01:49] LABS: Partial Thromboplast Time 35.7 Seconds (24.1-36.2)
[2021-04-15] MEDS: Heparin Injection (Vial) 5,000 UNIT/ML VIAL 6000 UNIT IV (01:56)
[2021-04-15] MEDS: HEPARIN/D5w 25,000 UNITS 25,000 UNITS/250 ML IV.SOLN. 12 UNITS IV (01:58)
--- NOTE | 2021-04-15 02:11 | PCM.HP.STD ---
Documented by User: CHELSI Ghosh 04/15/21 02:33 HPI - General General Date of Admission: 04/15/21 Date of Service: 04/15/21 Chief Complaint: Chest pain HPI Narrative FLEX GARCIA, is a 86 M who presents complaints of chest pain. Patient states over the past couple weeks he has noted that he has had chest tightness when walking long distances to his out building. Patient states that the tightness improves when he rests and is worse when ambulatory. Patient states that he has a history of CAD and non-STEMI. Patient has had 5 cardiac stents placed With the last heart cath performed 11/19/2020. Patient denies fever, chills, cough, nausea, vomiting. Patient does report that he has a decreased appetite as well as some shortness of breath consistent with the chest pain. [facility] Medical History Acute blood loss anemia Arthritis Atherosclerosis of coronary artery of [place] heart with angina pectoris Bruising Cancer Carotid artery disease Chronic systolic (congestive) heart failure Constipation DDD (degenerative disc disease) Essential (primary) hypertension GERD (gastroesophageal reflux disease) Hematuria Hiatal hernia High cholesterol History of non-ST elevation myocardial infarction (NSTEMI) (11/19/20) HLD (hyperlipidemia) ICD (implantable cardioverter-defibrillator) in place Irregular heart beat Ischemic cardiomyopathy Left bundle branch block (LBBB) Left carotid artery stenosis Myocardial infarct Non-smoker Nonsustained ventricular tachycardia 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 infarction Pacemaker Paroxysmal atrial fibrillation Polycythemia Segmental and somatic dysfunction of pelvic region Segmental and somatic dysfunction of thoracic region Shortness of breath on exertion Sinus drainage TIA (transient ischemic attack) Wears dentures Wears glasses Home Medications pantoprazole 40 mg PO DAILY 10/29/16 [History Last Taken 08/13/19] nitroglycerin 0.4 mg sublingual tablet 0.4 mg SUBLINGUAL Q5-15M PRN #25 tab 07/22/20 [Rx Last Taken Unknown] melatonin 5 mg PO QHS 12/06/20 [History Last Taken Unknown] acetaminophen 325 mg PO Q6H PRN 12/10/20 [History Last Taken Unknown] amlodipine 2.5 mg PO DAILY 12/10/20 [History Last Taken Unknown] aspirin 81 mg PO DAILY 12/10/20 [History Last Taken 11/30/20 08:00] clopidogrel [Plavix] 75 mg PO DAILY 12/10/20 [History Last Taken 11/30/20] metoprolol succinate 50 mg tablet,extended release 24 hr 50 mg PO DAILY #90 tab 01/12/21 [Rx Last Taken Unknown] apixaban 2.5 mg tablet 2.5 mg PO BID #60 tab 02/16/21 [Rx Last Taken Unknown] isosorbide mononitrate 30 mg tablet,extended release 24 hr 30 mg PO DAILY #60 tab 03/02/21 [Rx Last Taken Unknown] Allergy/AdvReac Type Severity Reaction Status Date / Time hydrochlorothiazide Allergy Severe Severe Verified 04/14/21 23:59 itching rash promethazine [From Phenergan] Allergy Other Verified 04/14/21 23:59 ranolazine [From Ranexa] AdvReac Severe Rash Verified 04/14/21 23:59 omeprazole AdvReac Unknown Verified 04/14/21 23:59 Phenothiazines AdvReac Unknown Verified 04/14/21 23:59 Oezdeez-Kkf-Eyu Reductase AdvReac myalgias Verified 04/14/21 23:59 Inhibitor PHENEGRANZOLE AdvReac Unknown Uncoded 04/14/21 23:59 Family History Father , Age 37 from [place] CAD (coronary artery disease) Myocardial infarction Sudden cardiac Mother , age 96 Diabetes Surgical History History of appendectomy History of cataract surgery History of coronary artery stent placement (09/16/19) History of electrophysiologic study (2009) History of hernia repair History of implantable cardiac defibrillator (ICD) (05/17/10) History of intraocular lens implant History of intravascular stent placement History of left heart catheterization (12/20/20) History of transurethral resection of prostate (12/16/20) Social History Smoking Status: Never smoker alcohol intake: never substance use type: does not use caffeine: Yes Type: carbonated beverages Number of servings: 1 and coffee Number of servings: 1 what type of physical activity do you participate in: none ROS Constitutional Constitutional: Reports fatigue; Denies anorexia, chills, fever(s), malaise or weakness Cardiovascular Cardiovascular: Reports chest pain; Denies edema or palpitations Respiratory/Chest Respiratory/Chest: Reports shortness of breath with exertion; Denies cough or shortness of breath at rest Gastrointestinal Gastrointestinal: Reports nausea; Denies abdominal pain, constipation, diarrhea or vomiting Genitourinary Genitourinary: Denies dysuria Musculoskeletal Musculoskeletal: Denies back pain, extremity pain, joint pain or joint stiffness Integumentary Integumentary: Denies dry skin Neurologic Neurologic: Denies abnormal gait, abnormal speech, confusion, dizziness or focal weakness Psychiatric Psychiatric: Denies anxiety or depression Endocrine Endocrinology: Denies change in body appearance Hematologic/Lymphatic Hematologic/Lymphatic: Denies anemia, easy bleeding or easy bruising Vital Signs Vital Signs Vital Signs: 04/14/21 23:54 04/15/21 01:07 04/15/21 01:08 Temperature 97.2 F L Temperature Source Temporal Pulse Rate 91 Respiratory Rate 18 Blood Pressure 158/88 H 138/83 H Blood Pressure Mean 111 Pulse Ox 96 Oxygen Delivery Method Room Air Nasal Cannula Oxygen Flow Rate (L/min) 2 04/15/21 01:13 04/15/21 01:18 04/15/21 01:20 Temperature 97.4 F L Temperature Source Temporal Pulse Rate 73 81 78 Respiratory Rate 19 H Blood Pressure 132/80 H 130/80 H 130/80 H Blood Pressure Mean 96 Pulse Ox 92 Oxygen Delivery Method Nasal Cannula Oxygen Flow Rate (L/min) 4 04/15/21 01:26 Temperature Temperature Source Pulse Rate Respiratory Rate 21 H Blood Pressure Blood Pressure Mean Pulse Ox Oxygen Delivery Method Oxygen Flow Rate (L/min) Weight Weight: 182 lb 1.629 oz Body Mass Index (BMI) 26.1 Physical Exam Const alert, oriented x3 and no apparent distress General Appearance: cooperative HEENT normocephalic and head/scalp atraumatic Eyes conjunctivae normal and no scleral icterus Neck supple and no JVD General: trachea midline Resp normal respiratory effort, normal air movement and clear to auscultation bilaterally Cardio regular rate, regular rhythm, S1 normal heart sound, S2 normal heart sound and peripheral pulses 2+ throughout GI normal to inspection, nondistended, normoactive bowel sounds, soft to palpation and non-tender Extremity normal capillary refill and no clubbing, cyanosis or edema General Extremity: no tenderness to palpation of joints or extremities Skin General Skin Exam: no breakdown and turgor normal Lesions: no lesions Rashes: no rashes Neuro no focal motor deficits and no sensory deficits noted Speech: speech normal Motor Exam: Negative for general weakness Psych thought process normal, cooperative and affect normal Appearance: appropriate Results Lab / Micro Data Result Diagrams: 04/15/21 00:10 04/15/21 00:10 Labs: Laboratory Results - last 24 hr 04/15/21 00:10: WBC 6.9, RBC 4.51 L, Hgb 13.4, Hct 40.9, MCV 90.7, MCH 29.7, MCHC 32.8, RDW Std Deviation 48.4 H, RDW Coeff of Dane 14.6, Plt Count 191, MPV 12.7 H, Immature Gran % (Auto) 0.400, Neut % (Auto) 64.9, Lymph % (Auto) 22.9, [place] % (Auto) 7.1, Eos % (Auto) 4.0, Baso % (Auto) 0.7, Absolute Neuts (auto) 4.5, Absolute Lymphs (auto) 1.59, Nucleated RBC % 0, Atypical Lymphocytes 1+ 04/15/21 00:10: Sodium 138, Potassium 3.5, Chloride 105, Carbon Dioxide 29.0, Anion Gap 4 L, BUN 23 H, Creatinine 1.24, Estim Creat Clear Calc 44.97, Est GFR (MDRD) Af Amer 71, Est GFR (MDRD) Non-Af 59 L, BUN/Creatinine Ratio 18.5, Glucose 114 H, Calcium 9.3, Troponin I High Sens 144 H* 04/15/21 00:10: PT 15.0 H, INR 1.3, APTT 35.7 Micro: Microbiology 04/15/21 01:04 Nasal Secretion SARS-CoV-2 Antigen (Rapid) - Final Radiology Impression Chest X-Ray 04/15/21 00:06 IMPRESSION: No acute abnormal cardiopulmonary finding. Electronically Signed: Cam Skinner MD at 1:04 EDT Tel , Service support , Assessment & Plan Assessment/Plan (1) Non-STEMI (non-ST elevated myocardial infarction): PLAN: 1. Non-STEMI -Admit to PCU for cardiac monitoring -Initiated heparin drip in the ER, will continue -Normal saline 75ml/hr -Consult cardiology, case discussed with Dr. Dailey. Will continue medical management with heparin drip, as needed nitro. Patient already on Plavix and aspirin, will continue. -Trend cardiac enzymes, initial value 144 -Vital signs per protocol -Will hold Eliquis while patient is on heparin drip 2. Hypertension -Continue home medication regimen including Norvasc, isosorbide, metoprolol. -Vital signs per protocol, currently stable DVT prophylaxis-not indicated This patient was seen by JOHN GhoshC under the supervision of Dr. Rizvi. Documented by User: Dr. Arnoldo Rizvi MD 04/15/21 03:15 HPI - General General Date of Admission: 04/15/21 [facility] Medical History Acute blood loss anemia Arthritis Atherosclerosis of coronary artery of [place] heart with angina pectoris Bruising Cancer Carotid artery disease Chronic systolic (congestive) heart failure Constipation DDD (degenerative disc disease) Essential (primary) hypertension GERD (gastroesophageal reflux disease) Hematuria Hiatal hernia High cholesterol History of non-ST elevation myocardial infarction (NSTEMI) (11/19/20) HLD (hyperlipidemia) ICD (implantable cardioverter-defibrillator) in place Irregular heart beat Ischemic cardiomyopathy Left bundle branch block (LBBB) Left carotid artery stenosis Myocardial infarct Non-smoker Nonsustained ventricular tachycardia 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 infarction Pacemaker Paroxysmal atrial fibrillation Polycythemia Segmental and somatic dysfunction of pelvic region Segmental and somatic dysfunction of thoracic region Shortness of breath on exertion Sinus drainage TIA (transient ischemic attack) Wears dentures Wears glasses Home Medications pantoprazole 40 mg PO DAILY 10/29/16 [History Last Taken 08/13/19] nitroglycerin 0.4 mg sublingual tablet 0.4 mg SUBLINGUAL Q5-15M PRN #25 tab 07/22/20 [Rx Last Taken Unknown] melatonin 5 mg PO QHS 12/06/20 [History Last Taken Unknown] acetaminophen 325 mg PO Q6H PRN 12/10/20 [History Last Taken Unknown] amlodipine 2.5 mg PO DAILY 12/10/20 [History Last Taken Unknown] aspirin 81 mg PO DAILY 12/10/20 [History Last Taken 11/30/20 08:00] clopidogrel [Plavix] 75 mg PO DAILY 12/10/20 [History Last Taken 11/30/20] metoprolol succinate 50 mg tablet,extended release 24 hr 50 mg PO DAILY #90 tab 01/12/21 [Rx Last Taken Unknown] apixaban 2.5 mg tablet 2.5 mg PO BID #60 tab 02/16/21 [Rx Last Taken Unknown] isosorbide mononitrate 30 mg tablet,extended release 24 hr 30 mg PO DAILY #60 tab 03/02/21 [Rx Last Taken Unknown] Allergy/AdvReac Type Severity Reaction Status Date / Time hydrochlorothiazide Allergy Severe Severe Verified 04/14/21 23:59 itching rash promethazine [From Phenergan] Allergy Other Verified 04/14/21 23:59 ranolazine [From Ranexa] AdvReac Severe Rash Verified 04/14/21 23:59 omeprazole AdvReac Unknown Verified 04/14/21 23:59 Phenothiazines AdvReac Unknown Verified 04/14/21 23:59 Hpwimqc-Hnj-Rhy Reductase AdvReac myalgias Verified 04/14/21 23:59 Inhibitor PHENEGRANZOLE AdvReac Unknown Uncoded 04/14/21 23:59 Family History Father , Age 37 from [place] CAD (coronary artery disease) Myocardial infarction Sudden cardiac Mother , age 96 Diabetes Surgical History History of appendectomy History of cataract surgery History of coronary artery stent placement (09/16/19) History of electrophysiologic study (2009) History of hernia repair History of implantable cardiac defibrillator (ICD) (05/17/10) History of intraocular lens implant History of intravascular stent placement History of left heart catheterization (12/20/20) History of transurethral resection of prostate (12/16/20) Social History Smoking Status: Never smoker alcohol intake: never substance use type: does not use caffeine: Yes Type: carbonated beverages Number of servings: 1 and coffee Number of servings: 1 what type of physical activity do you participate in: none Results Lab / Micro Data Result Diagrams: 04/15/21 00:10 04/15/21 00:10 Charges/Coding Addendum Addendum: Dr. Rizvi: I personally reviewed the chart and examined the patient, and agree with the above findings. 86-year-old male who was recently admitted in December for heart cath and a stent presents to the hospital with chest pain has been going on for about a week. Initially described as unstable angina where he would have some chest pain and then he would get some rest and it resolved, and now he states that he had the episode of chest pain/pressure today and it stayed for about an hour which was a lot longer than what it normally did to present to the hospital. Initial troponin was 144. I did discuss the case with cardiology and they felt that he would benefit by being placed on a heparin drip however they reviewed his previous heart cath imaging and felt that he would not need another heart cath but just more medical management and medication adjustments. Visit Charges Inpatient E&M: 86344 Init Hosp L3
--- NOTE | 2021-04-15 02:20 | EKG12_ITS ---
Test Reason : CP ADMISSION Blood Pressure : / mmHG Vent. Rate : 085 BPM Atrial Rate : 085 BPM P-R Int : 166 ms QRS Dur : 154 ms QT Int : 420 ms P-R-T Axes : 027 -36 125 degrees QTc Int : 499 ms Sinus rhythm with occasional Premature ventricular complexes Left axis deviation Left bundle branch block Abnormal ECG Confirmed by ELISABET ROCHA, SERGIO ([id number]), website/blog editor BITA ROBB ([id number]) on 04/19/2021 1:09:54 PM Referred By: MARY ANN Confirmed By:SERGIO BHANDARI MD
--- NOTE | 2021-04-15 02:25 | PCS.PANDOC ---
PANDEMIC DOCUMENTATION INITIATED: Date: 04/15/2021 Time: 219
[2021-04-15] MEDS: 0.9% Normal Saline 1,000 ML 75 ML IV ×2 (02:35→14:40)
[2021-04-15 03:24] LABS: ALB/GLOB Ratio 0.9 RATIO (0.9-2.4); AST(SGOT) 14 U/L (15-37); Alanine Aminotransfer ALT/SGPT 14 U/L (16-61); Albumin, Serum 3.1 g/dL (3.2-5.0); Alkaline Phosphatase 77 U/L (45-117); Anion Gap 7 (5-15); BUN 23 mg/dL (7-18); BUN/Creat Ratio 18.9 RATIO (10-20); Calcium,Total 8.7 mg/dL (8.5-10.1); Chloride 102 mmol/L (98-107); Creatinine, Serum 1.22 mg/dL (0.70-1.30); EST Glomerular Filtration Rate 60 mL/min (>60); Est Glom Filt Rate - Afr Amer 73 mL/min (>60); Estimated Creatinine Clearance 45.71 ml/min; Globulin 3.6 g/dL (2.2-4.2); Glucose 179 mg/dL (74-106); Potassium 3.8 mmol/L (3.5-5.1); Protein, Total 6.7 g/dL (6.4-8.2); Sodium Level 136 mmol/L (136-145); Troponin-I HS 132 pg/mL (3.0-78.0)
[2021-04-15 06:54] LABS: Absolute Lymphocyte Count 1.22 X10^3/uL (0.83-4.51); Absolute Neutrophil Count 5.6 X10^3/uL (2.0-7.7); Basophil# 0.06 X10^3/uL; Basophil% 0.8 % (0-1); Eosinophil# 0.15 X10^3/uL; Hematocrit 37.5 % (40-54); Hemoglobin 12.1 g/dL (13.0-16.5); Lymphocyte # 1.22 X10^3/ul (0.83-4.51); Lymphocyte % 16.2 % (19-41); Mean Corp Hgb Conc 32.3 g/dL (32-36); Mean Corpuscular Hgb 29.5 pg (27.0-32.0); Mean Corpuscular Volume 91.5 fL (80-94); Mean Platelet Vol. 12.8 fl (6.2-12.0); Monocyte# 0.53 X10^3/uL; NRBC Flagged by Analyzer 0 % (0-5); Neutrophil # 5.55 X10^3/uL (2.7-7.7); Neutrophil % 73.5 % (47-70); Platelet Count 154 K/mm3 (150-450); RBC Distribution Width CV 14.6 % (11.6-14.6); RBC Distribution Width SD 49.1 fl (35.1-43.9); White Blood Count 7.6 K/mm3 (4.4-11.0)
[2021-04-15 07:29] LABS: Anion Gap 5 (5-15); BUN 21 mg/dL (7-18); BUN/Creat Ratio 20.6 RATIO (10-20); Calcium,Total 8.8 mg/dL (8.5-10.1); Chloride 106 mmol/L (98-107); Creatinine, Serum 1.02 mg/dL (0.70-1.30); EST Glomerular Filtration Rate 74 mL/min (>60); Est Glom Filt Rate - Afr Amer 89 mL/min (>60); Estimated Creatinine Clearance 54.67 ml/min; Glucose 106 mg/dL (74-106); Sodium Level 138 mmol/L (136-145); Troponin-I HS 148 pg/mL (3.0-78.0)
[2021-04-15 09:17] LABS: Partial Thromboplast Time > 250.0 Seconds (24.1-36.2)
[2021-04-15 09:59] LABS: Partial Thromboplast Time > 250.0 Seconds (24.1-36.2)
[2021-04-15 11:08] LABS: Procalcitonin 0.04 ng/mL (0.00-0.09)
[2021-04-15] MEDS: Metoprolol(XL)Succ 50 MG Tablet PO (11:08)
[2021-04-15] MEDS: Pantoprazole Sodium 40 MG Tablet PO (11:08)
[2021-04-15] MEDS: amLODIPine 2.5 MG Tablet PO (11:08)
[2021-04-15] MEDS: Clopidogrel Bisulfate 75 MG Tablet PO (11:08)
[2021-04-15] MEDS: Isosorbide Mononitrate 30 MG Tablet PO ×2 (11:08→14:40)
[2021-04-15] MEDS: Aspirin 81 MG TAB.CHEW PO (11:09)
--- NOTE | 2021-04-15 11:11 | CON.PCM.CA_ITS ---
Documented by User: LYNN Sam 04/15/21 13:46 Assessment & Plan Assessment/Plan (1) Non-STEMI (non-ST elevated myocardial infarction): (2) Atherosclerosis of coronary artery of [place] heart with angina pectoris: (3) Ischemic cardiomyopathy: (4) Paroxysmal atrial fibrillation: (5) History of implantable cardiac defibrillator (ICD): (6) Essential (primary) hypertension: (7) HLD (hyperlipidemia): QUALIFIERS: Hyperlipidemia type: pure hypercholesterolemia Qualified Code(s): E78.00 - Pure hypercholesterolemia, unspecified; E78.0 - Pure hypercholesterolemia PLAN: * Dr. Dailey reviewed heart cath from 12/2020, it was felt at that Patient had nonviable myocardium in the LAD distribution and had multiple stents involving the left main, LAD, left circumflex as well as RCA. Becuase of this we will maximize his medications. If his Bp allow may consider adding Lisinopril. * In the past he has not tolerated higher dose of Isosorbide, however will like to try this while he is here is the hospital- feel that BP will tolerate this. In the past he has not tolerated Ranexa, Entresto * In regards to his Cardiomyopathy: He currently does not have any symptoms that would be concerning for CHF. Do not feel that we need to repeat echo at this time. He does have his ICD interrogated through the office. * In regards to his PAF: will continue with metoprolol and Eliquis * In regards to his hyperlipidemia: He has not tolerated statins in the past. HPI Consult Data Date of Consult: 04/15/21 HPI Narrative HPI Narrative: FLEX GARCIA, is a 86 M who presented to the ER for chest pain. Patient notes that he has had increase in fatigue and increasing shortness of breath for the last month. He finds that when he is doing activity he needs to stop and rest. Occasionally he does have some chest pressure. He has not needed to use any nitroglycerin for this. Last night while he was watching TV he developed some sweating and felt some fluttering felt that his breathing was funny. He states that typically the sensations would last about 5 minutes however this lasted approximately an hour and that is what prompted him to come in to be evaluated. High-sensitivity troponin was noted to be 144, repeat troponin was 132.138. Patient was admitted for further evaluation. He notes that he was started on Eliquis approximately a month ago. He also notes that he has been having some balance issues. He does have a history of coronary artery disease with angioplasty and stenting to his RCA, LAD. He also has a history of ischemic cardiomyopathy with an ejection fraction of 25% and a prophylactic ICD. Patient underwent a heart catheterization during a hospital stay for chest discomfort december 2020 which demonstrated 1.Patent left main stent with 20% distal in-stent stenosis, left main bifurcating into LAD and left circumflex Patent LAD stent with a 90% stenosis involving the ostium, distal LAD, distal to the stent there is a 90% stenosis with a BASHIR III flow 2. Patent left circumflex artery stent with ostial around 20 to 30% in-stent restenosis. 3. Large dominant RCA with patent proximal to mid stent, distal RCA had nonobstructive sclerosis of around 30-40%, involving the ostium of the RPDA of around 40% Patient had nonviable myocardium in the LAD distribution and had multiple stents involving the left main, LAD, left circumflex as well as RCA. In the past patient was intolerant to Ranexa, and sometimes isosorbide for the headaches. [facility] Medical History Acute blood loss anemia Arthritis Atherosclerosis of coronary artery of [place] heart with angina pectoris Bruising Cancer Carotid artery disease Chronic systolic (congestive) heart failure Constipation DDD (degenerative disc disease) Essential (primary) hypertension GERD (gastroesophageal reflux disease) Hematuria Hiatal hernia High cholesterol History of non-ST elevation myocardial infarction (NSTEMI) (11/19/20) HLD (hyperlipidemia) ICD (implantable cardioverter-defibrillator) in place Irregular heart beat Ischemic cardiomyopathy Left bundle branch block (LBBB) Left carotid artery stenosis Myocardial infarct Non-smoker Nonsustained ventricular tachycardia 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 infarction Pacemaker Paroxysmal atrial fibrillation Polycythemia Segmental and somatic dysfunction of pelvic region Segmental and somatic dysfunction of thoracic region Shortness of breath on exertion Sinus drainage TIA (transient ischemic attack) Wears dentures Wears glasses Home Medications pantoprazole 40 mg PO DAILY 10/29/16 [History Last Taken 08/13/19] nitroglycerin 0.4 mg sublingual tablet 0.4 mg SUBLINGUAL Q5-15M PRN #25 tab 07/22/20 [Rx Last Taken Unknown] melatonin 5 mg PO QHS 12/06/20 [History Last Taken Unknown] acetaminophen 325 mg PO Q6H PRN 12/10/20 [History Last Taken Unknown] amlodipine 2.5 mg PO DAILY 12/10/20 [History Last Taken Unknown] aspirin 81 mg PO DAILY 12/10/20 [History Last Taken 11/30/20 08:00] clopidogrel [Plavix] 75 mg PO DAILY 12/10/20 [History Last Taken 11/30/20] metoprolol succinate 50 mg tablet,extended release 24 hr 50 mg PO DAILY #90 tab 01/12/21 [Rx Last Taken Unknown] apixaban 2.5 mg tablet 2.5 mg PO BID #60 tab 02/16/21 [Rx Last Taken Unknown] isosorbide mononitrate 30 mg tablet,extended release 24 hr 30 mg PO DAILY #60 tab 03/02/21 [Rx Last Taken Unknown] Allergy/AdvReac Type Severity Reaction Status Date / Time hydrochlorothiazide Allergy Severe Severe Verified 04/14/21 23:59 itching rash promethazine [From Phenergan] Allergy Other Verified 04/14/21 23:59 ranolazine [From Ranexa] AdvReac Severe Rash Verified 04/14/21 23:59 omeprazole AdvReac Unknown Verified 04/14/21 23:59 Phenothiazines AdvReac Unknown Verified 04/14/21 23:59 Pfsvoyd-Buo-Lvi Reductase AdvReac myalgias Verified 04/14/21 23:59 Inhibitor PHENEGRANZOLE AdvReac Unknown Uncoded 04/14/21 23:59 Family History Father , Age 37 from [place] CAD (coronary artery disease) Myocardial infarction Sudden cardiac Mother , age 96 Diabetes Surgical History History of appendectomy History of cataract surgery History of coronary artery stent placement (09/16/19) History of electrophysiologic study (2009) History of hernia repair History of implantable cardiac defibrillator (ICD) (05/17/10) History of intraocular lens implant History of intravascular stent placement History of left heart catheterization (12/20/20) History of transurethral resection of prostate (12/16/20) Social History Smoking Status: Never smoker alcohol intake: never substance use type: does not use caffeine: Yes Type: carbonated beverages Number of servings: 1 and coffee Number of servings: 1 what type of physical activity do you participate in: none ROS Constitutional Constitutional: Reports systems reviewed and no addt'l complaints, except as documented Eyes Eyes: Reports systems reviewed and no addt'l complaints, except as documented ENT HEENT: Reports systems reviewed and no addt'l complaints, except as documented Cardiovascular Cardiovascular: Reports systems reviewed and no addt'l complaints, except as documented Respiratory/Chest Respiratory/Chest: Reports systems reviewed and no addt'l complaints, except as documented Gastrointestinal Gastrointestinal: Reports systems reviewed and no addt'l complaints, except as documented Musculoskeletal Musculoskeletal: Reports systems reviewed and no addt'l complaints, except as documented Neurologic Neurologic: Reports systems reviewed and no addt'l complaints, except as documented Physical Exam Const alert, oriented x3, no apparent distress, average body habitus and healthy appearing HEENT normocephalic, head/scalp atraumatic, hearing grossly normal bilaterally, external ears normal, nasal mucous membranes and turbinates normal and dentition normal Eyes PERRL, EOMs intact bilaterally, conjunctivae normal and no scleral icterus Neck full ROM, no lymphadenopathy, supple and no JVD Lymph Lymphatic: no lymphadenopathy noted Chest inspection of chest normal Resp normal respiratory effort, normal air movement, no use of accessory muscles and clear to auscultation bilaterally Cardio regular rate, regular rhythm, S1 normal heart sound, S2 normal heart sound, no murmurs, no rub, no gallops, no JVD and peripheral pulses 2+ throughout GI normal to inspection, nondistended, normoactive bowel sounds, soft to palpation, non-tender and non-distended Extremity normal to inspection, normal capillary refill and no clubbing, cyanosis or edema Neuro oriented x3, CN's II-XII intact bilaterally, moves all extremities, no focal motor deficits and no sensory deficits noted Charges/Coding Visit Charges Office Visits / Consults: 15131 IP Consult L4 Objective Data Vital Signs: Vital Signs Temp Pulse Resp BP Pulse Ox 97.9 F 88 18 140/86 H 97 04/15/21 08:30 04/15/21 11:08 04/15/21 08:30 04/15/21 11:08 04/15/21 08:30 Oxygen Flow Rate (L/min) 5 Oxygen Delivery Method Nasal Cannula Weight: 174 lb 2.643 oz Body Mass Index (BMI) 25.0 Intake & Output: Intake and Output for Last 24 Hours 04/13/21 04/14/21 04/15/21 23:59 23:59 23:59 Intake Total 96.4 / 96.4 Balance 96.4 / 96.4 Lab / Micro Data Result Diagrams: 04/15/21 06:10 04/15/21 06:10 Labs: Laboratory Results - last 24 hr 04/15/21 00:10: WBC 6.9, RBC 4.51 L, Hgb 13.4, Hct 40.9, MCV 90.7, MCH 29.7, MCHC 32.8, RDW Std Deviation 48.4 H, RDW Coeff of Dane 14.6, Plt Count 191, MPV 12.7 H, Immature Gran % (Auto) 0.400, Neut % (Auto) 64.9, Lymph % (Auto) 22.9, [place] % (Auto) 7.1, Eos % (Auto) 4.0, Baso % (Auto) 0.7, Absolute Neuts (auto) 4.5, Absolute Lymphs (auto) 1.59, Nucleated RBC % 0, Atypical Lymphocytes 1+ 04/15/21 00:10: Sodium 138, Potassium 3.5, Chloride 105, Carbon Dioxide 29.0, Anion Gap 4 L, BUN 23 H, Creatinine 1.24, Estim Creat Clear Calc 44.97, Est GFR (MDRD) Af Amer 71, Est GFR (MDRD) Non-Af 59 L, BUN/Creatinine Ratio 18.5, Glucose 114 H, Calcium 9.3, Troponin I High Sens 144 H* 04/15/21 00:10: PT 15.0 H, INR 1.3, APTT 35.7 04/15/21 02:08: Sodium 136, Potassium 3.8, Chloride 102, Carbon Dioxide 27.0, Anion Gap 7, BUN 23 H, Creatinine 1.22, Estim Creat Clear Calc 45.71, Est GFR (MDRD) Af Amer 73, Est GFR (MDRD) Non-Af 60, BUN/Creatinine Ratio 18.9, Glucose 179 H, Calcium 8.7, Total Bilirubin 0.50, AST 14 L, ALT 14 L, Alkaline Phospha tase 77, Troponin I High Sens 132 H*, Total Protein 6.7, Albumin 3.1 L, Globulin 3.6, Albumin/Globulin Ratio 0.9 04/15/21 06:10: Procalcitonin 0.04 04/15/21 06:10: WBC 7.6, RBC 4.10 L, Hgb 12.1 L, Hct 37.5 L, MCV 91.5, MCH 29.5, MCHC 32.3, RDW Std Deviation 49.1 H, RDW Coeff of Dane 14.6, Plt Count 154, MPV 12.8 H, Immature Gran % (Auto) 0.500, Neut % (Auto) 73.5 H, Lymph % (Auto) 16.2 L, [place] % (Auto) 7.0, Eos % (Auto) 2.0, Baso % (Auto) 0.8, Absolute Neuts (auto) 5.6, Absolute Lymphs (auto) 1.22, Nucleated RBC % 0 04/15/21 06:10: Sodium 138, Potassium 4.0, Chloride 106, Carbon Dioxide 27.0, Anion Gap 5, BUN 21 H, Creatinine 1.02, Estim Creat Clear Calc 54.67, Est GFR (MDRD) Af Amer 89, Est GFR (MDRD) Non-Af 74, BUN/Creatinine Ratio 20.6 H, Glucose 106, Calcium 8.8, Troponin I High Sens 148 H* 04/15/21 08:24: APTT > 250.0 H* 04/15/21 09:28: APTT > 250.0 H* Micro: Microbiology 04/15/21 01:04 Nasal Secretion SARS-CoV-2 Antigen (Rapid) - Final Cardiology Labs/Tests 04/15/21 00:10: WBC 6.9, RBC 4.51 L, Hgb 13.4, Hct 40.9, MCV 90.7, MCH 29.7, MCHC 32.8, Plt Count 191, MPV 12.7 H, Immature Gran % (Auto) 0.400, Neut % (Auto) 64.9, Lymph % (Auto) 22.9, [place] % (Auto) 7.1, Eos % (Auto) 4.0, Baso % (Auto) 0.7, Absolute Neuts (auto) 4.5, Nucleated RBC % 0 04/15/21 00:10: Sodium 138, Potassium 3.5, Chloride 105, Carbon Dioxide 29.0, Anion Gap 4 L, BUN 23 H, Creatinine 1.24, Est GFR (MDRD) Af Amer 71, Est GFR (MDRD) Non-Af 59 L, BUN/Creatinine Ratio 18.5, Glucose 114 H, Calcium 9.3 04/15/21 00:10: PT 15.0 H, INR 1.3, APTT 35.7 04/15/21 02:08: Sodium 136, Potassium 3.8, Chloride 102, Carbon Dioxide 27.0, Anion Gap 7, BUN 23 H, Creatinine 1.22, Est GFR (MDRD) Af Amer 73, Est GFR (MDRD) Non-Af 60, BUN/Creatinine Ratio 18.9, Glucose 179 H, Calcium 8.7, Total Bilirubin 0.50 04/15/21 06:10: WBC 7.6, RBC 4.10 L, Hgb 12.1 L, Hct 37.5 L, MCV 91.5, MCH 29.5, MCHC 32.3, Plt Count 154, MPV 12.8 H, Immature Gran % (Auto) 0.500, Neut % (Auto) 73.5 H, Lymph % (Auto) 16.2 L, [place] % (Auto) 7.0, Eos % (Auto) 2.0, Baso % (Auto) 0.8, Absolute Neuts (auto) 5.6, Nucleated RBC % 0 04/15/21 06:10: Sodium 138, Potassium 4.0, Chloride 106, Carbon Dioxide 27.0, Anion Gap 5, BUN 21 H, Creatinine 1.02, Est GFR (MDRD) Af Amer 89, Est GFR (MDRD) Non-Af 74, BUN/Creatinine Ratio 20.6 H, Glucose 106, Calcium 8.8 04/15/21 08:24: APTT > 250.0 H* 04/15/21 09:28: APTT > 250.0 H* Rhythm: EKG: ECHO: 2018: Normal LV size. The estimated ejection fraction is 20 %. Severe segmental systolic dysfunction (see wall motion). Stage 1 diastolic dysfunction. Contrast injection was performed. The study was technically difficult. Compared to prior study, there is no significant change. Stress Test: Cardiac Cath: 12/2020: Severe LV systolic dysfunction with ejection fraction in the range of 20-25%, LVEDP elevated. There is no systolic gradient across aortic valve. There is no mitral regurgitation noted. Finding of current angiography; 1. Patent left main stent with 20% distal in-stent stenosis, left main bifurcating into LAD and left circumflex Patent LAD stent with a 90% stenosis involving the ostium, distal LAD, distal to the stent there is a 90% stenosis with a BASHIR III flow 2. Patent left circumflex artery stent with ostial around 20 to 30% in-stent restenosis. 3. Large dominant RCA with patent proximal to mid stent, distal RCA had nonobstructive sclerosis of around 30-40%, involving the ostium of the RPDA of around 40%. Conclusion and recommendations; 1. This patient had extensive cardiac history is 85-year-old and presented with symptoms of chest pain which is resolved with medical therapy and angiographic views does not change from his recent angiogram Patient had nonviable myocardium in the LAD distribution and had multiple stents involving the left main, LAD, left circumflex as well as RCA. 2. We will continue to monitor on telemetry floor with a series of cardiac markers, I resumed the dual antiplatelet therapy with aspirin/Plavix 3. Patient had episode of paroxysmal atrial fibrillation on this admission, high risk for stroke with his extensive cardiac history according to [id number] VASC. Patient had renal insufficiency with elevated creatinine 1.3 and elderly 85 and a high risk for bleeding tendency being on dual antiplatelet therapy therefore the doses of the Eliquis is 2.5 mg twice daily 4. We will resume the rest of his current medication. 5. According to review of record patient could not tolerate long-acting nitrate and Ranexa in the past. 6. 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 Lawrence will resume care. PCI: CT Surgery: Holter monitor: EPS: PPM: CXR: Chest CT Scan: Radiography Diagnostic Testing: Radiology Impression Chest X-Ray 04/15/21 00:06 IMPRESSION: No acute abnormal cardiopulmonary finding. Electronically Signed: Cam Skinner MD at 1:04 EDT Tel , Service support , Documented by User: Dr. Velma Dailey MD 04/15/21 14:20 Assessment & Plan Assessment/Plan (1) Non-STEMI (non-ST elevated myocardial infarction): (2) Atherosclerosis of coronary artery of [place] heart with angina pectoris: (3) Ischemic cardiomyopathy: (4) Paroxysmal atrial fibrillation: (5) History of implantable cardiac defibrillator (ICD): (6) 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 infarction: (7) History of coronary artery stent placement: (8) Chronic systolic (congestive) heart failure: (9) Left bundle branch block (LBBB): PLAN: I reviewed the data regarding this 86-year-old gentleman who had very extensive cardiac history, I agree with the current plan and management as dictated by the midlevel Patient has nonviable myocardium in the LAD distribution and had severe in-stent restenosis of the proximal LAD stent as well as distal LAD of around 90 to the stent The left main and the left circumflex stent is patent as well as RCA stent Patient has severe ischemic cardiomyopathy with EF in the range of around 20% and ICD device. This presentation with non-ST elevation myocardial infarction symptoms of chest pain with mild elevation of high sensitive troponin and I also reviewed the last cardiac catheterization and discussed the cardiac care plan in detail and recommendation would be medical therapy. Also patient will follow up with [facility] for continuation of cardiac care plan/with his primary woodyard crane operator Dr. Lawrence. HPI Consult Data Date of Consult: 04/15/21 [facility] Medical History Acute blood loss anemia Arthritis Atherosclerosis of coronary artery of [place] heart with angina pectoris Bruising Cancer Carotid artery disease Chronic systolic (congestive) heart failure Constipation DDD (degenerative disc disease) Essential (primary) hypertension GERD (gastroesophageal reflux disease) Hematuria Hiatal hernia High cholesterol History of non-ST elevation myocardial infarction (NSTEMI) (11/19/20) HLD (hyperlipidemia) ICD (implantable cardioverter-defibrillator) in place Irregular heart beat Ischemic cardiomyopathy Left bundle branch block (LBBB) Left carotid artery stenosis Myocardial infarct Non-smoker Nonsustained ventricular tachycardia 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 infarction Pacemaker Paroxysmal atrial fibrillation Polycythemia Segmental and somatic dysfunction of pelvic region Segmental and somatic dysfunction of thoracic region Shortness of breath on exertion Sinus drainage TIA (transient ischemic attack) Wears dentures Wears glasses Home Medications pantoprazole 40 mg PO DAILY 10/29/16 [History Last Taken 08/13/19] nitroglycerin 0.4 mg sublingual tablet 0.4 mg SUBLINGUAL Q5-15M PRN #25 tab 07/22/20 [Rx Last Taken Unknown] melatonin 5 mg PO QHS 12/06/20 [History Last Taken Unknown] acetaminophen 325 mg PO Q6H PRN 12/10/20 [History Last Taken Unknown] amlodipine 2.5 mg PO DAILY 12/10/20 [History Last Taken Unknown] aspirin 81 mg PO DAILY 12/10/20 [History Last Taken 11/30/20 08:00] clopidogrel [Plavix] 75 mg PO DAILY 12/10/20 [History Last Taken 11/30/20] metoprolol succinate 50 mg tablet,extended release 24 hr 50 mg PO DAILY #90 tab 01/12/21 [Rx Last Taken Unknown] apixaban 2.5 mg tablet 2.5 mg PO BID #60 tab 02/16/21 [Rx Last Taken Unknown] isosorbide mononitrate 30 mg tablet,extended release 24 hr 30 mg PO DAILY #60 tab 03/02/21 [Rx Last Taken Unknown] Allergy/AdvReac Type Severity Reaction Status Date / Time hydrochlorothiazide Allergy Severe Severe Verified 04/14/21 23:59 itching rash promethazine [From Phenergan] Allergy Other Verified 04/14/21 23:59 ranolazine [From Ranexa] AdvReac Severe Rash Verified 04/14/21 23:59 omeprazole AdvReac Unknown Verified 04/14/21 23:59 Phenothiazines AdvReac Unknown Verified 04/14/21 23:59 Zlxsdbg-Ljh-Ozx Reductase AdvReac myalgias Verified 04/14/21 23:59 Inhibitor PHENEGRANZOLE AdvReac Unknown Uncoded 04/14/21 23:59 Family History Father , Age 37 from [place] CAD (coronary artery disease) Myocardial infarction Sudden cardiac Mother , age 96 Diabetes Surgical History History of appendectomy History of cataract surgery History of coronary artery stent placement (09/16/19) History of electrophysiologic study (2009) History of hernia repair History of implantable cardiac defibrillator (ICD) (05/17/10) History of intraocular lens implant History of intravascular stent placement History of left heart catheterization (12/20/20) History of transurethral resection of prostate (12/16/20) Social History Smoking Status: Never smoker alcohol intake: never substance use type: does not use caffeine: Yes Type: carbonated beverages Number of servings: 1 and coffee Number of servings: 1 what type of physical activity do you participate in: none Lab / Micro Data Result Diagrams: 04/15/21 06:10 04/15/21 06:10
--- NOTE | 2021-04-15 12:10 | CASEMGMT ---
CHRISTIN ENRIQUEZ assessment: Face to Face with patient for initial transition planning/care coordination assessment. CHRISTIN ENRIQUEZ introduced self and role at [facility], pt voices understanding and consents to assessment. Pt is lying in bed in no distress on 5L nc. Pt is A/Ox4 and answers all questions appropriately. Care providers, pharmacy, and demographics verified. Presentation: Pt states feels like pacermaker going off for several days and now w/ CP Admitting dx: NSTEMI PCP: Jean Specialists: Howard, cardio; Luis Alberto, uro Preferred Pharmacy: [facility] Insurance: [facility], AARP Prescription Benefit: [facility] A[facility]B Living Will/HPOA: Pt has LW and is aware that it is on file at [facility]. Pt is unsure of HPOA and is aware that there is not on file. LNOK: Mary Solis, Living Arrangements: Pt states lives with in 1 story home with 3 steps in and states no concerns at home. Pt is independent w/ ADL's. Transportation: Pt states drives self and states no transportation concerns. DME/HHC: Pt states has a pacer device and states no need for any further DME. Pt states no hx of HHC or SNF. Pt states no concerns with going home at time of discharge. Pt is retired. Pt does not smoke cigarettes or drink ETOH. Pt states voices no further concerns/needs. CM to follow for home oxygen testing and any further discharge planning/needs. Advised pt to ask for CM if any further questions/concerns/needs arise, voices understanding. Pt Goal: Home Plan[place] CHRISTIN ENRIQUEZ
--- NOTE | 2021-04-15 13:50 | PN.HOSP_ITS ---
Subjective Subjective Patient seen and examined. He was admitted with a complaint of chest pain and found to have non-STEMI. He has had a total of 9 heart caths and states he has about [address]. He has been managed for non-STEMI and is on heparin drip. Cardiology on board. He had no complaints this morning and felt well. Review of systems otherwise negative. Objective Data Objective Data Vital Signs: Vital Signs Temp Pulse Resp BP Pulse Ox 97.9 F 88 18 140/86 H 97 04/15/21 08:30 04/15/21 11:08 04/15/21 08:30 04/15/21 11:08 04/15/21 08:30 Oxygen Flow Rate (L/min) 5 Oxygen Delivery Method Nasal Cannula Weight: 174 lb 2.643 oz Body Mass Index (BMI) 25.0 Intake & Output: Intake and Output for Last 24 Hours 04/13/21 04/14/21 04/15/21 23:59 23:59 23:59 Intake Total 96.4 / 96.4 Output Total Balance 95.4 / 95.4 Lab / Micro Data Result Diagrams: 04/15/21 06:10 04/15/21 06:10 Labs: Laboratory Results - last 24 hr 04/15/21 00:10: WBC 6.9, RBC 4.51 L, Hgb 13.4, Hct 40.9, MCV 90.7, MCH 29.7, MCHC 32.8, RDW Std Deviation 48.4 H, RDW Coeff of Dane 14.6, Plt Count 191, MPV 12.7 H, Immature Gran % (Auto) 0.400, Neut % (Auto) 64.9, Lymph % (Auto) 22.9, [place] % (Auto) 7.1, Eos % (Auto) 4.0, Baso % (Auto) 0.7, Absolute Neuts (auto) 4.5, Absolute Lymphs (auto) 1.59, Nucleated RBC % 0, Atypical Lymphocytes 1+ 04/15/21 00:10: Sodium 138, Potassium 3.5, Chloride 105, Carbon Dioxide 29.0, Anion Gap 4 L, BUN 23 H, Creatinine 1.24, Estim Creat Clear Calc 44.97, Est GFR (MDRD) Af Amer 71, Est GFR (MDRD) Non-Af 59 L, BUN/Creatinine Ratio 18.5, Glucose 114 H, Calcium 9.3, Troponin I High Sens 144 H* 04/15/21 00:10: PT 15.0 H, INR 1.3, APTT 35.7 04/15/21 02:08: Sodium 136, Potassium 3.8, Chloride 102, Carbon Dioxide 27.0, Anion Gap 7, BUN 23 H, Creatinine 1.22, Estim Creat Clear Calc 45.71, Est GFR (MDRD) Af Amer 73, Est GFR (MDRD) Non-Af 60, BUN/Creatinine Ratio 18.9, Glucose 179 H, Calcium 8.7, Total Bilirubin 0.50, AST 14 L, ALT 14 L, Alkaline Phosphatase 77, Troponin I High Sens 132 H*, Total Protein 6.7, Albumin 3.1 L, Globulin 3.6, Albumin/Globulin Ratio 0.9 04/15/21 06:10: Procalcitonin 0.04 04/15/21 06:10: WBC 7.6, RBC 4.10 L, Hgb 12.1 L, Hct 37.5 L, MCV 91.5, MCH 29.5, MCHC 32.3, RDW Std Deviation 49.1 H, RDW Coeff of Dane 14.6, Plt Count 154, MPV 12.8 H, Immature Gran % (Auto) 0.500, Neut % (Auto) 73.5 H, Lymph % (Auto) 16.2 L, [place] % (Auto) 7.0, Eos % (Auto) 2.0, Baso % (Auto) 0.8, Absolute Neuts (auto) 5.6, Absolute Lymphs (auto) 1.22, Nucleated RBC % 0 04/15/21 06:10: Sodium 138, Potassium 4.0, Chloride 106, Carbon Dioxide 27.0, Anion Gap 5, BUN 21 H, Creatinine 1.02, Estim Creat Clear Calc 54.67, Est GFR (MDRD) Af Amer 89, Est GFR (MDRD) Non-Af 74, BUN/Creatinine Ratio 20.6 H, Glucose 106, Calcium 8.8, Troponin I High Sens 148 H* 04/15/21 08:24: APTT > 250.0 H* 04/15/21 09:28: APTT > 250.0 H* Micro: Microbiology 04/15/21 01:04 Nasal Secretion SARS-CoV-2 Antigen (Rapid) - Final Radiography Diagnostic Testing: Radiology Impression Chest X-Ray 04/15/21 00:06 IMPRESSION: No acute abnormal cardiopulmonary finding. Electronically Signed: Cam Skinner MD at 1:04 EDT Tel , Service support , Physical Exam Const alert, oriented x3 and no apparent distress Exam Limitations: no limitations HEENT head/scalp atraumatic and moist oral mucous membranes Head and Scalp: normocephalic Eyes PERRL, EOMs intact bilaterally and conjunctivae normal Neck no lymphadenopathy, supple and no JVD Resp normal respiratory effort, no retractions, no use of accessory muscles and clear to auscultation bilaterally Cardio regular rate, regular rhythm, S1 normal heart sound, S2 normal heart sound and no murmurs GI normal to inspection, nondistended, normoactive bowel sounds, soft to palpation, non-tender and non-distended Extremity normal to inspection and no clubbing, cyanosis or edema Peripheral Pulses: Yes pulses 2+ throughout Skin no rashes or lesions noted Neuro oriented x3, CN's II-XII intact bilaterally and moves all extremities Sensorium / Orientation: awake and alert Psych affect normal Assessment & Plan Assessment/Plan (1) Non-STEMI (non-ST elevated myocardial infarction): PLAN: #Nonstemi * patient currently on heparin drip * cardiology on board * on aspirin and plavix * #CAD s/p stents x 5: already on aspirin and plavix. management as above. #Hypertension: on amlodipine and metoprolol as well as imdur. #Hyperlipidemia: on statin #History of paroxysmal afib * on metoprolo. eliquis on hold as he is currently on heparin drip. * #History of HFrEF: not in exacerbation. stable #History of nonstustained vtach s/p ICD: stable. on metoprolol DVT prophylaxis: not indicated as he is on heparin drip Charges/Coding Visit Charges Inpatient E&M: 27183 [facility] Hosp L3
[2021-04-15 18:50] LABS: Partial Thromboplast Time 89.8 Seconds (24.1-36.2)
[2021-04-15] MEDS: MELATONIN 10 MG TABLET 5 MG PO (19:52)
[2021-04-15] MEDS: Ondansetron 4 MG/2 ML Vial IV (22:50)
[2021-04-15] MEDS: 0.9% Saline Lock 10 ML Syringe IV (22:51)
[2021-04-15] MEDS: MELATONIN 10 MG TABLET PO (23:28)
[2021-04-16] VITALS (8 sets, daily range): BP systolic 110–142; BP diastolic 61–88; PULSE 65–94; RESP 18–20; TEMP 36.4–36.7; O2SAT 93–100
[2021-04-16 02:49] LABS: Partial Thromboplast Time 93.7 Seconds (24.1-36.2)
[2021-04-16] MEDS: 0.9% Normal Saline 1,000 ML 75 ML IV (05:01)
[2021-04-16] MEDS: HEPARIN/D5w 25,000 UNITS 25,000 UNITS/250 ML IV.SOLN. 6 UNITS IV (05:02)
[2021-04-16 08:24] LABS: Absolute Lymphocyte Count 1.17 X10^3/uL (0.83-4.51); Absolute Neutrophil Count 4.1 X10^3/uL (2.0-7.7); Basophil# 0.04 X10^3/uL; Basophil% 0.7 % (0-1); Eosinophil# 0.17 X10^3/uL; Eosinophils% 2.9 % (0-5); Hematocrit 35.3 % (40-54); Hemoglobin 11.3 g/dL (13.0-16.5); Lymphocyte # 1.17 X10^3/ul (0.83-4.51); Lymphocyte % 19.8 % (19-41); Mean Corpuscular Hgb 29.7 pg (27.0-32.0); Mean Corpuscular Volume 92.9 fL (80-94); Monocyte# 0.42 X10^3/uL; Monocyte% 7.1 % (0-10); NRBC Flagged by Analyzer 0 % (0-5); Neutrophil # 4.09 X10^3/uL (2.7-7.7); Neutrophil % 69.2 % (47-70); Platelet Count 163 K/mm3 (150-450); RBC Distribution Width CV 14.6 % (11.6-14.6); RBC Distribution Width SD 49.6 fl (35.1-43.9); White Blood Count 5.9 K/mm3 (4.4-11.0)
[2021-04-16 08:34] LABS: Anion Gap 6 (5-15); BUN 20 mg/dL (7-18); BUN/Creat Ratio 23.9 RATIO (10-20); Calcium,Total 8.5 mg/dL (8.5-10.1); Chloride 106 mmol/L (98-107); Creatinine, Serum 0.84 mg/dL (0.70-1.30); EST Glomerular Filtration Rate 93 mL/min (>60); Est Glom Filt Rate - Afr Amer 112 mL/min (>60); Estimated Creatinine Clearance 66.39 ml/min; Glucose 89 mg/dL (74-106); Potassium 4.3 mmol/L (3.5-5.1); Sodium Level 137 mmol/L (136-145)
[2021-04-16] MEDS: Aspirin 81 MG TAB.CHEW PO (08:48)
[2021-04-16] MEDS: Pantoprazole Sodium 40 MG Tablet PO (08:48)
[2021-04-16] MEDS: Clopidogrel Bisulfate 75 MG Tablet PO (08:49)
[2021-04-16] MEDS: Isosorbide Mononitrate 60 MG Tablet PO (08:49)
[2021-04-16] MEDS: Metoprolol(XL)Succ 50 MG Tablet PO (08:49)
[2021-04-16] MEDS: amLODIPine 2.5 MG Tablet PO (08:49)
[2021-04-16] MEDS: 0.9% Saline Lock 10 ML Syringe IV (08:50)
[2021-04-16] MEDS: Furosemide 40 MG/4 ML Vial IV (08:51)
--- NOTE | 2021-04-16 10:43 | PN.CARD_ITS ---
Documented by User: LYNN Sam 04/16/21 13:05 Subjective Subjective Pt seen and examined today, he does not have any new complaints. He does not have any CP/SOB. He is tolerating higher dose of Imdur. Objective Data Vital Signs: Vital Signs Temp Pulse Resp BP Pulse Ox 97.8 F 85 20 H 142/88 H 100 04/16/21 08:00 04/16/21 08:49 04/16/21 08:00 04/16/21 08:49 04/16/21 08:00 Oxygen Flow Rate (L/min) 4 Oxygen Delivery Method Nasal Cannula Weight: 174 lb 2.643 oz Body Mass Index (BMI) 25.0 Intake & Output: Intake and Output for Last 24 Hours 04/14/21 04/15/21 04/16/21 23:59 23:59 23:59 Intake Total 1309.10 / 1309.10 1446.3 / 1446.3 Output Total 176 / 176 Balance 1133.10 / 1133.10 1446.3 / 1446.3 Lab / Micro Data Result Diagrams: 04/16/21 02:17 04/16/21 02:17 Labs: Laboratory Results - last 24 hr 04/15/21 06:10: Procalcitonin 0.04 04/15/21 18:20: APTT 89.8 H 04/16/21 02:17: APTT 93.7 H* 04/16/21 02:17: WBC 5.9, RBC 3.80 L, Hgb 11.3 L, Hct 35.3 L, MCV 92.9, MCH 29.7, MCHC 32.0, RDW Std Deviation 49.6 H, RDW Coeff of Dane 14.6, Plt Count 163, MPV 13.0 H, Immature Gran % (Auto) 0.300, Neut % (Auto) 69.2, Lymph % (Auto) 19.8, [place] % (Auto) 7.1, Eos % (Auto) 2.9, Baso % (Auto) 0.7, Absolute Neuts (auto) 4.1, Absolute Lymphs (auto) 1.17, Nucleated RBC % 0 04/16/21 02:17: Sodium 137, Potassium 4.3, Chloride 106, Carbon Dioxide 25.0, Anion Gap 6, BUN 20 H, Creatinine 0.84, Estim Creat Clear Calc 66.39, Est GFR (M DRD) Af Amer 112, Est GFR (MDRD) Non-Af 93, BUN/Creatinine Ratio 23.9 H, Glucose 89, Calcium 8.5 Rhythm Strip Rhythm Strip: Sinus Rhythm (A-paced) Cardiology Labs/Tests 04/15/21 18:20: APTT 89.8 H 04/16/21 02:17: APTT 93.7 H* 04/16/21 02:17: WBC 5.9, RBC 3.80 L, Hgb 11.3 L, Hct 35.3 L, MCV 92.9, MCH 29.7, MCHC 32.0, Plt Count 163, MPV 13.0 H, Immature Gran % (Auto) 0.300, Neut % (Auto) 69.2, Lymph % (Auto) 19.8, [place] % (Auto) 7.1, Eos % (Auto) 2.9, Baso % (A uto) 0.7, Absolute Neuts (auto) 4.1, Nucleated RBC % 0 04/16/21 02:17: Sodium 137, Potassium 4.3, Chloride 106, Carbon Dioxide 25.0, Anion Gap 6, BUN 20 H, Creatinine 0.84, Est GFR (MDRD) Af Amer 112, Est GFR (MDRD) Non-Af 93, BUN/Creatinine Ratio 23.9 H, Glucose 89, Calcium 8.5 Rhythm: EKG: ECHO: 2018: Normal LV size. The estimated ejection fraction is 20 %. Severe segmental systolic dysfunction (see wall motion). Stage 1 diastolic dysfunction. Contrast injection was performed. The study was technically difficult. Compared to prior study, there is no significant change. Cardiac Cath: 12/2020: Severe LV systolic dysfunction with ejection fraction in the range of 20-25%, LVEDP elevated. There is no systolic gradient across aortic valve. There is no mitral regurgitation noted. Finding of current angiography; 1. Patent left main stent with 20% distal in-stent stenosis, left main bifurcating into LAD and left circumflex Patent LAD stent with a 90% stenosis involving the ostium, distal LAD, distal to the stent there is a 90% stenosis with a BASHIR III flow 2. Patent left circumflex artery stent with ostial around 20 to 30% in-stent restenosis. 3. Large dominant RCA with patent proximal to mid stent, distal RCA had nonobstructive sclerosis of around 30-40%, involving the ostium of the RPDA of around 40%. CXR 04/15/21: No acute abnormal cardiopulmonary finding. Physical Exam Const alert, oriented x3, no apparent distress, average body habitus and healthy appearing HEENT normocephalic, head/scalp atraumatic, hearing grossly normal bilaterally, external ears normal, nasal mucous membranes and turbinates normal and dentition normal Eyes PERRL, EOMs intact bilaterally, conjunctivae normal and no scleral icterus Neck full ROM, no lymphadenopathy, supple and no JVD Lymph Lymphatic: no lymphadenopathy noted Chest inspection of chest normal Resp normal respiratory effort, normal air movement and no use of accessory muscles Auscultation: crackles bilateral base Cardio regular rate, regular rhythm, S1 normal heart sound, S2 normal heart sound, no murmurs, no rub, no gallops, no JVD and peripheral pulses 2+ throughout GI normal to inspection, nondistended, normoactive bowel sounds, soft to palpation, non-tender and non-distended Extremity normal to inspection, normal capillary refill and no clubbing, cyanosis or edema Neuro oriented x3, CN's II-XII intact bilaterally, moves all extremities, no focal motor deficits and no sensory deficits noted Assessment & Plan Assessment/Plan (1) Non-STEMI (non-ST elevated myocardial infarction): (2) Atherosclerosis of coronary artery of [place] heart with angina pectoris: (3) Ischemic cardiomyopathy: (4) Paroxysmal atrial fibrillation: (5) History of implantable cardiac defibrillator (ICD): (6) Essential (primary) hypertension: (7) HLD (hyperlipidemia): QUALIFIERS: Hyperlipidemia type: pure hypercholesterolemia Qualified Code(s): E78.00 - Pure hypercholesterolemia, unspecified; E78.0 - Pure hypercholesterolemia PLAN: * Dr. Dailey reviewed heart cath from 12/2020, it was felt at that Patient had nonviable myocardium in the LAD distribution and had multiple stents involving the left main, LAD, left circumflex as well as RCA. Because of this we will maximize his medications. * will start low dose lisinopril, feel that BP will tolerate * Will switch metoprolol to Coreg * He seems to be tolerating increased dose of isosorbide, will continue with this. * In the past he has not tolerated Ranexa, Entresto * In regards to his Cardiomyopathy (EF is 20%): Pt does have crackles on exam, will treat with IV lasix, he is not on lasix at home. he is not on O2 at home * He does have his ICD interrogated through the office. * In regards to his PAF: will continue with Eliquis metoprolol will be switched to Coreg. * In regards to his hyperlipidemia: He has not tolerated statins in the past. Documented by User: Dr. Velma Dailey MD 04/16/21 17:15 Lab / Micro Data Result Diagrams: 04/16/21 02:17 04/16/21 02:17 Assessment & Plan Assessment/Plan (1) Non-STEMI (non-ST elevated myocardial infarction): (2) Atherosclerosis of coronary artery of [place] heart with angina pectoris: (3) Ischemic cardiomyopathy: (4) Paroxysmal atrial fibrillation: (5) History of implantable cardiac defibrillator (ICD): (6) History of non-ST elevation myocardial infarction (NSTEMI): (7) History of coronary artery stent placement: PLAN: This patient seen and evaluated today at bedside, I reviewed the current evaluation, current data with cardiac telemetry lab medication And agree with the plan and documentation by the midlevel Very high risk patient with severe ischemic cardiomyopathy with ejection fraction of around 20%, s/p ICD This presentation has symptoms of chest pain and has elevated cardiac biomarkers/high sensitive troponin. We reviewed all the current medication continue the current treatment Once stable patient to follow-up with his primary oven worker Dr. Lawrence.
--- NOTE | 2021-04-16 12:52 | CASEMGMT ---
This RN CM to room with list of [employer] companies for pt to peruse as he is still on 4Lnc. Pt has significant heart concerns and cardiology's only recommendation for pt is medical therapy. Pt states does not really want to go home on oxygen and states 'I won't be around much longer anyways.' Pt upset that he cannot order meatloaf/mashed potatoes for dinner d/t cardiac diet. This RN CM spoke with Dr. Valdez and she states ok for pt to be on regular diet at this time. Guicho WALLER aware and diet updated. Pt aware that he can order what he would like for dinner. Pt voices no further questions/concerns/needs. Pt does qualify for palliative referral via [facility] palliative screening tool and Dr. Valdez and Ted, cardio WOOD CAULKER, agreeable with referral. Referral faxed and order placed. Green sheet to be left on chart for home oxygen need, if pt agreeable. SStewa WALLER CM
[2021-04-16] MEDS: Lisinopril 2.5 MG Tablet PO (12:53)
--- NOTE | 2021-04-16 13:53 | PN.HOSP_ITS ---
Objective Data Objective Data Vital Signs: Vital Signs Temp Pulse Resp BP Pulse Ox 97.8 F 94 20 H 142/88 H 100 04/16/21 08:00 04/16/21 09:00 04/16/21 08:00 04/16/21 08:49 04/16/21 08:00 Oxygen Flow Rate (L/min) 2 Oxygen Delivery Method Nasal Cannula Weight: 174 lb 2.643 oz Body Mass Index (BMI) 25.0 Intake & Output: Intake and Output for Last 24 Hours 04/14/21 04/15/21 04/16/21 23:59 23:59 23:59 Intake Total 1309.10 / 1309.10 1446.3 / 1446.3 Output Total 176 / 176 Balance 1133.10 / 1133.10 1446.3 / 1446.3 Lab / Micro Data Result Diagrams: 04/16/21 02:17 04/16/21 02:17 Labs: Laboratory Results - last 24 hr 04/15/21 18:20: APTT 89.8 H 04/16/21 02:17: APTT 93.7 H* 04/16/21 02:17: WBC 5.9, RBC 3.80 L, Hgb 11.3 L, Hct 35.3 L, MCV 92.9, MCH 29.7, MCHC 32.0, RDW Std Deviation 49.6 H, RDW Coeff of Dane 14.6, Plt Count 163, MPV 13.0 H, Immature Gran % (Auto) 0.300, Neut % (Auto) 69.2, Lymph % (Auto) 19.8, [place] % (Auto) 7.1, Eos % (Auto) 2.9, Baso % (Auto) 0.7, Absolute Neuts (auto) 4.1, Absolute Lymphs (auto) 1.17, Nucleated RBC % 0 04/16/21 02:17: Sodium 137, Potassium 4.3, Chloride 106, Carbon Dioxide 25.0, Anion Gap 6, BUN 20 H, Creatinine 0.84, Estim Creat Clear Calc 66.39, Est GFR (MDRD) Af Amer 112, Est GFR (MDRD) Non-Af 93, BUN/Creatinine Ratio 23.9 H, Glucose 89, Calcium 8.5 Micro: Microbiology 04/15/21 01:04 Nasal Secretion SARS-CoV-2 Antigen (Rapid) - Final Rhythm Strip Rhythm Strip: Sinus Rhythm (A-paced)
--- NOTE | 2021-04-16 15:17 | CON.PCM.PA_ITS ---
Assessment & Plan Assessment/Plan (1) Atherosclerosis of coronary artery of [place] heart with angina pectoris: QUALIFIERS: Coronary Disease-Associated Artery/Lesion type: [place] artery Qualified Code(s): I25.119 - Atherosclerotic heart disease of [place] coronary artery with unspecified angina pectoris (2) Non-STEMI (non-ST elevated myocardial infarction): (3) Ischemic cardiomyopathy: (4) Chronic systolic (congestive) heart failure: (5) Paroxysmal atrial fibrillation: (6) History of coronary artery stent placement: (7) History of implantable cardiac defibrillator (ICD): (8) Left bundle branch block (LBBB): (9) Essential (primary) hypertension: (10) HLD (hyperlipidemia): QUALIFIERS: Hyperlipidemia type: pure hypercholesterolemia Qualified Code(s): E78.00 - Pure hypercholesterolemia, unspecified; E78.0 - Pure hypercholesterolemia (11) Left carotid artery stenosis: (12) Nonsustained ventricular tachycardia: (13) Hematuria: QUALIFIERS: Hematuria type: unspecified type Qualified Code(s): R31.9 - Hematuria, unspecified (14) 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 infarction: (15) BPH (benign prostatic hyperplasia): QUALIFIERS: Lower urinary tract symptom presence: unspecified whether lower urinary tract symptoms present Qualified Code(s): N40.0 - Benign prostatic hyperplasia without lower urinary tract symptoms (16) Anemia: QUALIFIERS: Anemia type: unspecified type Qualified Code(s): D64.9 - Anemia, unspecified (17) Male hypogonadism: (18) History of non-ST elevation myocardial infarction (NSTEMI): PLAN: 86-year-old male with extensive cardiac history, seen today for palliative care consultation secondary to severe CAD, CHF, and multiple hospitalizations for chest pain. 1. Angina/non-STEMI: Secondary to ischemia, has significant blockages but unable to provide any interventions per cardiology. They are medically managing. 2. Chronic systolic CHF/cardiomyopathy: Appears to be compensated, cardiology is following. Palliative can assist with symptom management. He is currently not having any shortness of breath. When he does, he does have accompanied angina. 3. PAF/HTN/HLD/ICD/history of hematuria/history of NSVT/BPH/anemia/male hypogonadism/old AL/left carotid artery stenosis/multiple cardiac stents: Complicates overall care, management, recovery, and prognosis. The patient would qualify for hospice and would have more intensive services if he is agreeable. He wishes to discuss palliative care with his , not ready for vic mixon. Thank you for the opportunity to participate in this patient's care, please do not hesitate to contact [facility] with any further questions or concerns. Palliative direct line is [phone]. The patient will call us if he decides he would like to pursue palliative care or learn more about it with a liaison visit. I gave him our contact info. Greater than 50% of F2F visit dedicated to education and counseling of palliative care services, medications, comorbid conditions and potential assistance with management, and plan of care moving forward. Start time: 1517 End time: 1640 HPI Consult Data Date of Consult: 04/16/21 HPI Narrative HPI Narrative: FLEX GARCIA, is a 86 M who presented to [facility] 04/15/2021 with chest pain that progressed over several weeks, increased fatigue, and shortness of breath. Symptoms improved with rest. Patient has been admitted to the hospital several times this year with the same complaints. He does have an extensive cardiac history of CAD and non-STEMI, multiple stents, cardiomyopathy, etc. Patient was found to have another non-STEMI. He was placed on a heparin drip. Patient was admitted for further evaluation and management. Cardiology was consulted. Patient's primary production broacher is Dr. Lawrence. Had a heart cath in December 2020 and it was felt at that time that patient had a nonviable myocardium in the LAD distribution and had multiple stents involving the left main, LAD, left circumflex as well as RCA. Due to the severity of his disease and history, it was recommended maximizing medical therapy. Patient is anticoagulated secondary to PAF. He does have an ICD. He does have severe LV systolic dysfunction with an EF of 20 to 25%. Palliative care consulted secondary to severe CAD, currently being medically managed with no recommendations for interventions. He was recommended to have palliative referral due to the severity of his disease, age, and comorbidities. Patient reports no current chest pain. He does get short of breath with exertion but says he rests at home when this happens and it goes away within 10 minutes. No nausea or vomiting. No dizziness or syncope. No constipation or diarrhea. Denies weakness. He is fairly active at home, other than when he is having chest pain. His congestive heart failure has been under fairly good control. Typically if he has an exacerbation, his only symptom is shortness of breath and chest pain. States he is not ready to give up yet. I did explain palliative services extensively to the patient, he would like to talk with his who will be here soon, will get back to us if he has more questions or wants to meet with the liaison for more information. [facility] Medical History Acute blood loss anemia Arthritis Atherosclerosis of coronary artery of [place] heart with angina pectoris Bruising Cancer Carotid artery disease Chronic systolic (congestive) heart failure Constipation DDD (degenerative disc disease) Essential (primary) hypertension GERD (gastroesophageal reflux disease) Hematuria Hiatal hernia High cholesterol History of non-ST elevation myocardial infarction (NSTEMI) (11/19/20) HLD (hyperlipidemia) ICD (implantable cardioverter-defibrillator) in place Irregular heart beat Ischemic cardiomyopathy Left bundle branch block (LBBB) Left carotid artery stenosis Myocardial infarct Non-smoker Nonsustained ventricular tachycardia 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 infarction Pacemaker Paroxysmal atrial fibrillation Polycythemia Segmental and somatic dysfunction of pelvic region Segmental and somatic dysfunction of thoracic region Shortness of breath on exertion Sinus drainage TIA (transient ischemic attack) Wears dentures Wears glasses Home Medications pantoprazole 40 mg PO DAILY 10/29/16 [History Last Taken 08/13/19] nitroglycerin 0.4 mg sublingual tablet 0.4 mg SUBLINGUAL Q5-15M PRN #25 tab 07/22/20 [Rx Last Taken Unknown] melatonin 5 mg PO QHS 12/06/20 [History Last Taken Unknown] acetaminophen 325 mg PO Q6H PRN 12/10/20 [History Last Taken Unknown] amlodipine 2.5 mg PO DAILY 12/10/20 [History Last Taken Unknown] aspirin 81 mg PO DAILY 12/10/20 [History Last Taken 11/30/20 08:00] clopidogrel [Plavix] 75 mg PO DAILY 12/10/20 [History Last Taken 11/30/20] apixaban 2.5 mg tablet 2.5 mg PO BID #60 tab 02/16/21 [Rx Last Taken Unknown] carvedilol 12.5 mg PO BID #30 tab 04/16/21 [Rx Last Taken Unknown] isosorbide mononitrate 60 mg PO DAILY #30 tab 04/16/21 [Rx Last Taken Unknown] lisinopril 2.5 mg PO DAILY #30 tab 04/16/21 [Rx Last Taken Unknown] Allergy/AdvReac Type Severity Reaction Status Date / Time hydrochlorothiazide Allergy Severe Severe Verified 04/14/21 23:59 itching rash promethazine [From Phenergan] Allergy Other Verified 04/14/21 23:59 ranolazine [From Ranexa] AdvReac Severe Rash Verified 04/14/21 23:59 omeprazole AdvReac Unknown Verified 04/14/21 23:59 Phenothiazines AdvReac Unknown Verified 04/14/21 23:59 [id number]-[id number]-Vem Reductase AdvReac myalgias Verified 04/14/21 23:59 Inhibitor PHENEGRANZOLE AdvReac Unknown Uncoded 04/14/21 23:59 Family History Father , Age 37 from [place] CAD (coronary artery disease) Myocardial infarction Sudden cardiac Mother , age 96 Diabetes Surgical History History of appendectomy History of cataract surgery History of coronary artery stent placement (09/16/19) History of electrophysiologic study (2009) History of hernia repair History of implantable cardiac defibrillator (ICD) (05/17/10) History of intraocular lens implant History of intravascular stent placement History of left heart catheterization (12/20/20) History of transurethral resection of prostate (12/16/20) Social History Smoking Status: Never smoker alcohol intake: never substance use type: does not use caffeine: Yes Type: carbonated beverages Number of servings: 1 and coffee Number of servings: 1 what type of physical activity do you participate in: none ROS ROS Narrative Review of systems otherwise negative from a constitutional, HEENT, respiratory, cardiovascular, GI, genitourinary, musculoskeletal, skin, neurologic, psychiatric and hematologic system unless stated above. Physical Exam Const alert, oriented x3 and no apparent distress General Appearance: cooperative and comfortable HEENT normocephalic and head/scalp atraumatic Neck supple General: trachea midline Lymph Lymphatic: no lymphadenopathy noted and no lymphedema noted Resp normal respiratory effort Effort and Inspection: able to speak in complete sentences and symmetric chest movement Auscultation: clear to auscultation bilaterally Cardio regular rate, regular rhythm, S1 normal heart sound, S2 normal heart sound, no murmurs, no rub and no gallops GI normal to inspection, nondistended, normoactive bowel sounds Extremity no clubbing, cyanosis or edema Skin no rashes or lesions noted and no wounds Neuro CN's II-XII intact bilaterally, moves all extremities and no focal motor deficits Psych mental status grossly normal Attitude: calm Activity / Motor Behavior: appropriate eye contact Speech: normal speech Thought Process: normal thought process Thought Content: normal thought content Attention / Concentration: attention grossly intact Memory / Cognition: memory grossly intact Insight: insight good Judgement: judgement good
--- NOTE | 2021-04-16 16:01 | PCM.DC.SUM ---
Providers Date of Admission: 04/15/21 Primary Care Physician: Dr. Jacques Pena MD Consultations 04/15/21 02:21 Consult: Cardiology Routine Consulting Provider: Velma Dailey Reason for Consult: NSTEMI cath in December EMERGENT Consult: No MD Notified: Yes Date Notified: 04/15/21 Time Notified: 01:52 Method of Notification: Verbal Comments:: ED physician discussed with Dr. Dailey Reason For Visit: NSTEMI Diagnosis Discharge Diagnosis (1) Atherosclerosis of coronary artery of [place] heart with angina pectoris: Status: Chronic Code(s): I25.119 - Atherosclerotic heart disease of [place] coronary artery with unspecified angina pectoris Qualifiers: Coronary Disease-Associated Artery/Lesion type: [place] artery Qualified Code(s): I25.119 - Atherosclerotic heart disease of [place] coronary artery with unspecified angina pectoris (2) Non-STEMI (non-ST elevated myocardial infarction): Status: Acute Code(s): I21.4 - Non-ST elevation (NSTEMI) myocardial infarction (3) Ischemic cardiomyopathy: Status: Chronic Code(s): I25.5 - Ischemic cardiomyopathy (4) Chronic systolic (congestive) heart failure: Status: Chronic Code(s): I50.22 - Chronic systolic (congestive) heart failure (5) Paroxysmal atrial fibrillation: Status: Chronic Code(s): I48.0 - Paroxysmal atrial fibrillation (6) History of coronary artery stent placement: Status: Chronic Code(s): Z95.5 - Presence of coronary angioplasty implant and graft (7) History of implantable cardiac defibrillator (ICD): Status: Chronic (8) Left bundle branch block (LBBB): Status: Chronic Code(s): I44.7 - Left bundle-branch block, unspecified (9) Essential (primary) hypertension: Status: Chronic Code(s): I10 - Essential (primary) hypertension (10) HLD (hyperlipidemia): Status: Chronic Code(s): E78.5 - Hyperlipidemia, unspecified Qualifiers: Hyperlipidemia type: pure hypercholesterolemia Qualified Code(s): E78.00 - Pure hypercholesterolemia, unspecified; E78.0 - Pure hypercholesterolemia (11) Left carotid artery stenosis: Status: Chronic Code(s): I65.22 - Occlusion and stenosis of left carotid artery (12) Nonsustained ventricular tachycardia: Status: Chronic Code(s): I47.2 - Ventricular tachycardia (13) Hematuria: Status: Chronic Code(s): R31.9 - Hematuria, unspecified Qualifiers: Hematuria type: unspecified type Qualified Code(s): R31.9 - Hematuria, unspecified (14) 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 infarction: Status: Chronic Code(s): I25.2 - Old myocardial infarction (15) BPH (benign prostatic hyperplasia): Status: Chronic Code(s): N40.0 - Benign prostatic hyperplasia without lower urinary tract symptoms Qualifiers: Lower urinary tract symptom presence: unspecified whether lower urinary tract symptoms present Qualified Code(s): N40.0 - Benign prostatic hyperplasia without lower urinary tract symptoms (16) Anemia: Status: Acute Code(s): D64.9 - Anemia, unspecified Qualifiers: Anemia type: unspecified type Qualified Code(s): D64.9 - Anemia, unspecified (17) 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 Code(s): E29.1 - Testicular hypofunction (18) History of non-ST elevation myocardial infarction (NSTEMI): Status: Chronic Code(s): I25.2 - Old myocardial infarction Medications at Discharge Home Medications pantoprazole 40 mg PO DAILY 10/29/16 nitroglycerin 0.4 mg sublingual tablet 0.4 mg SUBLINGUAL Q5-15M PRN #25 tab 07/22/20 melatonin 5 mg PO QHS 12/06/20 acetaminophen 325 mg PO Q6H PRN 12/10/20 amlodipine 2.5 mg PO DAILY 12/10/20 aspirin 81 mg PO DAILY 12/10/20 clopidogrel [Plavix] 75 mg PO DAILY 12/10/20 apixaban 2.5 mg tablet 2.5 mg PO BID #60 tab 02/16/21 carvedilol 12.5 mg PO BID #30 tab 04/16/21 isosorbide mononitrate 60 mg PO DAILY #30 tab 04/16/21 lisinopril 2.5 mg PO DAILY #30 tab 04/16/21 Hospital Course Operations None Procedures None Summary of Care Provided Minutes Spent on Discharge: 45 Hospital Course: Ray woo is an 86 y/o male with a PMH as outlined who was admitted via the ED with a complaint of chest pain which have been going on for the past couple of weeks and improved with rest and worsened with exertion. He has had 5 previous stents placed with his last heart cath being in November 2020. Review of systems otherwise negative. Initial troponin was 144 and EKG showed no acute ST changes so he was admitted and managed for non-STEMI. He was started on heparin drip. Cardiology was consulted and reviewed his previous cath imaging and did not think that he would need another heart cath advocated for medical management. Patient's hospital course was complicated by shortness of breath which was thought to be due to fluid he was receiving. Fluids were discontinued and his oxygen was weaned off and he felt much better. Patient remained stable and was discharged home on 04/16/2021 and is to follow-up with his primary care doctor and cardiology. He was started on low-dose lisinopril and metoprolol was switched to Coreg. Imdur was also increased. He has known EF of 20%. He was continued on his metoprolol and was discharged home on 04/16/2021. Patient seen and examined prior to discharge. He felt much better and had no complaints. Review of systems otherwise negative. Labs and vitals reviewed. Home medication reviewed and reconciled. Physical Exam Const alert, oriented x3 and no apparent distress General Appearance: cooperative and comfortable Exam Limitations: no limitations HEENT normocephalic, head/scalp atraumatic, hearing grossly normal bilaterally and moist oral mucous membranes Neck no lymphadenopathy, supple and no JVD General: trachea midline Resp normal respiratory effort, normal air movement, no retractions and no use of accessory muscles Resp Narrative: on 4L of oxygen, which was subsequently weaned off completely. Auscultation: crackles bilateral base Cardio regular rate, regular rhythm, S1 normal heart sound and S2 normal heart sound GI normal to inspection, nondistended, normoactive bowel sounds, soft to palpation, non-tender and non-distended Extremity normal to inspection, full ROM and no clubbing, cyanosis or edema General Extremity: no tenderness to palpation of joints or extremities Skin no rashes or lesions noted General Skin Exam: no breakdown and turgor normal Lesions: no lesions Rashes: no rashes Neuro Sensorium / Orientation: awake and alert Speech: speech normal Motor Exam: Negative for general weakness Psych thought process normal, cooperative and affect normal Appearance: appropriate Weight / BMI Weight Weight: 174 lb 2.643 oz Body Mass Index (BMI) 25.0 ABG / Lab / Microbiology Data Result Diagrams: 04/16/21 02:17 04/16/21 02:17 Laboratory: Laboratory Results - last 24 hr 04/15/21 18:20: APTT 89.8 H 04/16/21 02:17: APTT 93.7 H* 04/16/21 02:17: WBC 5.9, RBC 3.80 L, Hgb 11.3 L, Hct 35.3 L, MCV 92.9, MCH 29.7, MCHC 32.0, RDW Std Deviation 49.6 H, RDW Coeff of Dane 14.6, Plt Count 163, MPV 13.0 H, Immature Gran % (Auto) 0.300, Neut % (Auto) 69.2, Lymph % (Auto) 19.8, [place] % (Auto) 7.1, Eos % (Auto) 2.9, Baso % (Auto) 0.7, Absolute Neuts (auto) 4.1, Absolute Lymphs (auto) 1.17, Nucleated RBC % 0 04/16/21 02:17: Sodium 137, Potassium 4.3, Chloride 106, Carbon Dioxide 25.0, Anion Gap 6, BUN 20 H, Creatinine 0.84, Estim Creat Clear Calc 66.39, Est GFR (MDRD) Af Amer 112, Est GFR (MDRD) Non-Af 93, BUN/Creatinine Ratio 23.9 H, Glucose 89, Calcium 8.5 Microbiology: Microbiology 04/15/21 01:04 Nasal Secretion SARS-CoV-2 Antigen (Rapid) - Final D/C Instructions Discharge Diet: Low fat / Low cholesterol Discharge Activity: Return to Normal Activity Weight Bearing Status: Weight bearing as tolerated Call your doctor if you observe: Fever of 101 or Higher, Shortness of breath, Dizziness, Swelling in the ankles, Chest pain and Increased palpitations (irregular heartbeat) Meaningful Use Info Meaningful Use Diagnoses (Choose all that apply): AMI AMI/Post PCI/Angioplasty Aspirin given w/in 24hrs of arrival?: Yes ASA at discharge?: Yes Antiplatelet Therapy at Discharge:: Yes Statins at discharge?: Yes Jorge Luis/ARB at discharge?: Yes Beta Dmitry at discharge?: Yes Done w/ Acute [place] measure.: Yes Documented LVEF (%): 20 Discharge Plan Admission Admit Date/Time: 04/15/21 01:52 Primary Reason for Your Visit: nonstemi Attending Provider: Pina Valdez Primary Care Provider: Jacques Pena Chi Consulting Providers: Velma Dailey Instructions Patient Instructions: Heart Attack Dc, Heart Attack: Leaving the Hospital Discharge Orders/Prescriptions Prescriptions: New isosorbide mononitrate 60 mg tablet extended release 24 hr 60 mg PO DAILY Qty: 30 RF: 1 carvedilol 12.5 mg tablet 12.5 mg PO BID Qty: 30 RF: 1 lisinopril 2.5 mg tablet 2.5 mg PO DAILY Qty: 30 RF: 1 Continued nitroglycerin 0.4 mg tablet, sublingual 0.4 mg sublingual Q5-15M PRN (Reason: chest pain) Qty: 25 RF: 3 pantoprazole 40 MG tablet 40 mg PO DAILY RF: 0 clopidogrel [Plavix] 75 mg Tablet 75 mg PO DAILY RF: 0 Hold Instructions: Resume on 12/30/20. aspirin 81 mg Tablet 81 mg PO DAILY RF: 0 Hold Instructions: Resume on 12/30/20. acetaminophen 325 mg Capsule 325 mg PO Q6H PRN (Reason: Pain) RF: 0 amlodipine 2.5 mg tablet 2.5 mg PO DAILY RF: 0 melatonin 5 mg Tablet 5 mg PO QHS RF: 0 Eliquis 2.5 mg tablet 2.5 mg PO BID Qty: 60 RF: 11 Discontinued metoprolol succinate 50 mg tablet extended release 24 hr 50 mg PO DAILY Qty: 90 RF: 3 isosorbide mononitrate 30 mg tablet extended release 24 hr 30 mg PO DAILY Qty: 60 RF: 3 Referrals / Follow Up: Roque Lawrence MD [STAFF PHYSICIAN] - Within 2 Weeks Jacques Pena Chi, MD [Primary Care Provider] - Within 2 Weeks Disposition Disposition (needs filled in before D/C Order can be placed): Home, Self Care Charges/Coding Visit Charges OBSV E&M: 17576 Observ/hosp same date L3
--- NOTE | 2021-04-20 09:35 | CASEMGMT ---
CHRISTIN ENRIQUEZ Discharge Follow-up Phone Call: RUBÉNCharo:Kenji Strata: 3 Call Date: 04/20/21 Discharge Date:04/16/21 Time of Call: [phone] Admitting Diagnosis: NSTEMI, CHF This CHRISTIN ENRIQUEZ contacted pt via phone regarding discharge follow-up. Pt states he is at [facility] where they are attempting to place some cardiac stents. Noted pt returned to the ED on 04/17/21 and was transferred to [place] for further cardiac care. Franci Hooks RN CM
== END 2021-04-16 17:17 | disposition home or self-care (01) | DRG 281 ==
LOC: ED 04-15 01:05 → PCU 04-15 01:59
PROVIDERS: Admitting Provider Family Medicine; Emergency Provider Student in an Organized Health Care Education/Training Program; PCP Family Medicine Geriatric Medicine; Visit Provider Student in an Organized Health Care Education/Training Program
DX: I21.4 Non-ST elevation (NSTEMI) myocardial infarction (principal); I50.22 Chronic systolic (congestive) heart failure; I25.119 Atherosclerotic heart disease of native coronary artery with unspecified angina pectoris; I25.5 Ischemic cardiomyopathy; I11.0 Hypertensive heart disease with heart failure; I48.0 Paroxysmal atrial fibrillation; E78.5 Hyperlipidemia, unspecified; N40.0 Benign prostatic hyperplasia without lower urinary tract symptoms; I25.2 Old myocardial infarction; M19.90 Unspecified osteoarthritis, unspecified site; K21.9 Gastro-esophageal reflux disease without esophagitis; M99.05 Segmental and somatic dysfunction of pelvic region; M99.02 Segmental and somatic dysfunction of thoracic region; Z95.810 Presence of automatic (implantable) cardiac defibrillator; Z79.899 Other long term (current) drug therapy; Z79.82 Long term (current) use of aspirin; Z79.02 Long term (current) use of antithrombotics/antiplatelets; Z79.01 Long term (current) use of anticoagulants; Z95.5 Presence of coronary angioplasty implant and graft; I44.7 Left bundle-branch block, unspecified
CPT/HCPCS: 36415; 71045; 80048; 80053; 84145; 84484; 85025; 85610; 85730; 87426; 93005; 97802; 99285; J7030; A4216; J1940; J2405

== ENCOUNTER 2021-04-17 14:13 | Emergency (ER) | payer MEDICARE, OTHER, SELFPAY ==
[2020-04-02 11:50] VITALS: BMI 26.2
[2021-04-17] VITALS (10 sets, daily range): BP systolic 98–132; BP diastolic 57–72; PULSE 62–80; RESP 15–20; TEMP 36.7; O2SAT 84–100; BMI 23.6
--- NOTE | 2021-04-17 14:55 | EKG12_ITS ---
Test Reason : SOB Blood Pressure : / mmHG Vent. Rate : 064 BPM Atrial Rate : 064 BPM P-R Int : 162 ms QRS Dur : 150 ms QT Int : 480 ms P-R-T Axes : 002 -34 147 degrees QTc Int : 495 ms Normal sinus rhythm Left axis deviation Left bundle branch block Abnormal ECG Confirmed by JENNIFER ROCHA, JESSE ([id number]), city editor BITA ROBB ([id number]) on 04/19/2021 1:29:19 PM Referred By: ETHAN Confirmed By:JESSE RODRIGUEZ MD
--- NOTE | 2021-04-17 14:57 | EDS_ITS ---
HPI History of Present Illness Chief Complaint: Weakness Informant: patient Onset/Context/Timing Onset: Today Context: - (since woke up today) Timing: Continuous Quality: just very weak Location: all over Current Severity: Severe Maximum Severity: Severe Worsened by: nothing Relieved by: nothing Associated Symptoms Associated Symptoms: a little sob in past hr Narrative Narrative: Patient was just discharged yesterday after being here for dyspnea and heart related issues. He was diagnosed with an NSTEMI and managed medically since he just had several stents several months ago. He and state that at discharge, he had increased dose of Imdur, was started on lisinopril, and his metoprolol was changed over to Coreg. He has been feeling a little short of breath today, but was feeling very fatigued prior to that. He denies any other new symptoms. No chest discomfort. No fevers. No leg swelling. Patient states his blood pressure couple days ago was in the 130s. [facility] Medical History Acute blood loss anemia Arthritis Atherosclerosis of coronary artery of [place] heart with angina pectoris Bruising Cancer Carotid artery disease Chronic systolic (congestive) heart failure Constipation DDD (degenerative disc disease) Essential (primary) hypertension GERD (gastroesophageal reflux disease) Hematuria Hiatal hernia High cholesterol History of non-ST elevation myocardial infarction (NSTEMI) (11/19/20) HLD (hyperlipidemia) ICD (implantable cardioverter-defibrillator) in place Irregular heart beat Ischemic cardiomyopathy Left bundle branch block (LBBB) Left carotid artery stenosis Myocardial infarct Non-smoker Nonsustained ventricular tachycardia 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 infarction Pacemaker Paroxysmal atrial fibrillation Polycythemia Segmental and somatic dysfunction of pelvic region Segmental and somatic dysfunction of thoracic region Shortness of breath on exertion Sinus drainage TIA (transient ischemic attack) Wears dentures Wears glasses Home Medications pantoprazole 40 mg PO DAILY 10/29/16 [History Last Taken 08/13/19] nitroglycerin 0.4 mg sublingual tablet 0.4 mg SUBLINGUAL Q5-15M PRN #25 tab 07/22/20 [Rx Last Taken Unknown] melatonin 5 mg PO QHS 12/06/20 [History Last Taken Unknown] acetaminophen 325 mg PO Q6H PRN 12/10/20 [History Last Taken Unknown] amlodipine 2.5 mg PO DAILY 12/10/20 [History Last Taken Unknown] aspirin 81 mg PO DAILY 12/10/20 [History Last Taken 11/30/20 08:00] clopidogrel [Plavix] 75 mg PO DAILY 12/10/20 [History Last Taken 11/30/20] apixaban 2.5 mg tablet 2.5 mg PO BID #60 tab 02/16/21 [Rx Last Taken Unknown] carvedilol 12.5 mg PO BID #30 tab 04/16/21 [Rx Last Taken Unknown] isosorbide mononitrate 60 mg PO DAILY #30 tab 04/16/21 [Rx Last Taken Unknown] lisinopril 2.5 mg PO DAILY #30 tab 04/16/21 [Rx Last Taken Unknown] Allergy/AdvReac Type Severity Reaction Status Date / Time hydrochlorothiazide Allergy Severe Severe Verified 04/14/21 23:59 itching rash promethazine [From Phenergan] Allergy Other Verified 04/14/21 23:59 ranolazine [From Ranexa] AdvReac Severe Rash Verified 04/14/21 23:59 omeprazole AdvReac Unknown Verified 04/14/21 23:59 Phenothiazines AdvReac Unknown Verified 04/14/21 23:59 [id number] Reductase AdvReac myalgias Verified 04/14/21 23:59 Inhibitor PHENEGRANZOLE AdvReac Unknown Uncoded 04/14/21 23:59 Family History Father , Age 37 from [place] CAD (coronary artery disease) Myocardial infarction Sudden cardiac Mother , age 96 Diabetes Surgical History History of appendectomy History of cataract surgery History of coronary artery stent placement (09/16/19) History of electrophysiologic study (2009) History of hernia repair History of implantable cardiac defibrillator (ICD) (05/17/10) History of intraocular lens implant History of intravascular stent placement History of left heart catheterization (12/20/20) History of transurethral resection of prostate (12/16/20) Social History Smoking Status: Never smoker alcohol intake: never substance use type: does not use caffeine: Yes Type: carbonated beverages Number of servings: 1 and coffee Number of servings: 1 what type of physical activity do you participate in: none ROS ROS ED Constitutional Constitutional ED: Reports malaise and weakness; Denies chills or fever(s) Eyes Eyes: Denies change in vision or diplopia ENT ENT ED: Denies rhinorrhea or sore throat Cardiovascular Cardiovascular: Denies chest pain or palpitations Respiratory/Chest Respiratory/Chest: Reports dyspnea; Denies cough Gastrointestinal Gastrointestinal: Denies abdominal pain, diarrhea, nausea or vomiting Genitourinary Genitourinary ED: Denies dysuria or hematuria Musculoskeletal Musculoskeletal: Denies back pain or neck pain Integumentary Denies abscess or rash Neurologic Neurologic: Denies headache(s), paresthesias or weakness Psychiatric Psychiatric: Denies anxiety or suicidal thoughts EXAM Physical Exam Const Vital Signs: 04/17/21 14:15 04/17/21 14:18 04/17/21 15:03 Temperature 98.1 F Temperature Source Temporal Pulse Rate 62 Respiratory Rate 20 H Respiratory Effort Normal Non-Labored Respiratory Pattern Normal Blood Pressure 107/58 L Blood Pressure Mean 74 Pulse Ox 98 94 Oxygen Delivery Method Room Air Nasal Cannula Oxygen Flow Rate (L/min) 3 04/17/21 15:06 04/17/21 16:12 04/17/21 17:56 Temperature Temperature Source Pulse Rate 80 74 Respiratory Rate 19 H 17 Respiratory Effort Respiratory Pattern Blood Pressure 112/64 108/57 L Blood Pressure Mean 80 74 Pulse Ox 98 100 96 Oxygen Delivery Method Nasal Cannula Nasal Cannula Room Air Oxygen Flow Rate (L/min) 3 2 04/17/21 18:34 Temperature Temperature Source Pulse Rate 66 Respiratory Rate 20 H Respiratory Effort Respiratory Pattern Blood Pressure 132/69 H Blood Pressure Mean 90 Pulse Ox 96 Oxygen Delivery Method Room Air Oxygen Flow Rate (L/min) 2 Positive well nourished and well developed General Appearance ED: well developed and NAD HEENT Reports moist mucous membranes normocephalic and atraumatic Eyes PERRL and EOMs intact bilaterally Neck full ROM and supple Resp normal respiratory effort and clear to auscultation bilaterally Cardio regular rate, regular rhythm and no murmurs GI non-tender and non-distended Auscultation: normoactive bowel sounds Palpation: soft Back/Spine no CVA tenderness General Back: other FROM Extremity normal to inspection and no calf tenderness General Extremety ED: Negative for edema, pulses abnormal or tenderness General Extremity: Negative for edema or pulses abnormal Neuro oriented x3, CN's II-XII intact bilaterally and no sensory deficits noted Sensorium / Orientation: awake and alert Motor Exam: strength 5/5 throughout Skin no rashes or lesions noted and no wounds MDM MDM MDM Narrative Medical decision making narrative: Patient's work-up is fairly unremarkable with the exception of his troponin which is a little higher than it was the other day, he was in the 140s now 167. His BNP is actually better than it was before, his EKG shows a left bundle and really is unchanged, this chest x-ray is unremarkable. He gets hypoxic in the high 70s/80s with a good waveform here in the ER, and then when I engage him in conversation becomes back up quickly to 98-100 on room air. I discussed his case with Dr. Dailey,, who knows the patient as he cathed him in December. The patient has a significant number of stents including a stent in the left main and throughout the left anterior descending, and actually has a 90% stenosis in the ostium of that stent as well as the distal LAD distal to the stent there is another 90% stenosis with BASHIR-3 flow. He has in-stent stenosis of some of the other stents but it is 20-30% up to 40% in the distal RCA and its stent. Given all of this, cardiology recommends transfer to a tertiary care center for evaluation for complex PCI given that they opted to do medical treatment and he is likely feeling that. I did discuss with Dr. Guajardo at [facility], with cardiology he would accept the patient, however the transfer center states there is no way they will have a bed today for cardiology-related issues. Therefore discussed with the patient who would prefer to try another hospital rather than wait a long time for [facility], I was able to get him accepted by Dr Ortiz at [place].. Lab Data Attestation: I reviewed the patient's lab results. Labs: Laboratory Results - last 24 hr 04/17/21 04/17/21 04/17/21 14:25 14:25 14:25 WBC 5.4 RBC 3.68 L Hgb 10.9 L Hct 33.9 L MCV 92.1 MCH 29.6 MCHC 32.2 RDW Std Deviation 49.2 H RDW Coeff of [place]ane 14.6 Plt Count 159 MPV 12.8 H Immature Gran % (Auto) 0.400 Neut % (Auto) 69.2 Lymph % (Auto) 18.4 L [place] % (Auto) 8.3 Eos % (Auto) 3.1 Baso % (Auto) 0.6 Absolute Neuts (auto) 3.8 Absolute Lymphs (auto) 1.00 Nucleated RBC % 0 Sodium 137 Potassium 3.8 Chloride 103 Carbon Dioxide 27.0 Anion Gap 7 BUN 26 H Creatinine 1.24 Estim Creat Clear Calc 44.97 Est GFR (MDRD) Af Amer 71 Est GFR (MDRD) Non-Af 59 L BUN/Creatinine Ratio 21.0 H Glucose 134 H Calcium 9.0 Troponin I High Sens 167 H* B-Natriuretic Peptide 156.5 H Urine Color Urine Clarity Urine pH Ur Specific [place] Urine Protein Urine Glucose (UA) Urine Ketones Urine Occult Blood Urine Nitrite Urine Bilirubin Urine Urobilinogen Ur Leukocyte Esterase Urine RBC Urine WBC Ur Squamous Epith Cells Urine Bacteria Urine Mucus 04/17/21 16:20 WBC RBC Hgb Hct MCV MCH MCHC RDW Std Deviation RDW Coeff of [place] Plt Count MPV Immature Gran % (Auto) Neut % (Auto) Lymph % (Auto) [place] % (Auto) Eos % (Auto) Baso % (Auto) Absolute Neuts (auto) Absolute Lymphs (auto) Nucleated RBC % Sodium Potassium Chloride Carbon Dioxide Anion Gap BUN Creatinine Estim Creat Clear Calc Est GFR (MDRD) Af Amer Est GFR (MDRD) Non-Af BUN/Creatinine Ratio Glucose Calcium Troponin I High Sens B-Natriuretic Peptide Urine Color Yellow Urine Clarity Clear Urine pH 5.0 Ur Specific [place] 1.020 Urine Protein 30 H Urine Glucose (UA) Normal Urine Ketones Negative Urine Occult Blood 250 H Urine Nitrite Negative Urine Bilirubin 1 H Urine Urobilinogen 1 H Ur Leukocyte Esterase 100 H Urine RBC 10-25 SEEN Urine WBC 0-5 SEEN Ur Squamous Epith Cells 0-5 SEEN Urine Bacteria 0 SEEN Urine Mucus 1+ Radiography Diagnostic Testing: Radiology Impression Chest X-Ray 04/17/21 15:05 IMPRESSION: No visualized focal infiltrate. Defibrillator mild cardiomegaly cardiac stent. Electronically Signed: Charleen Linares MD at 15:43 EDT Tel , Service support , EKG Initial EKG: Attestation: I personally reviewed and interpreted this EKG as follows: Interpretation: Sinus Rhythm, No Acute Injury Pattern and LBBB Prior EKG tracings: available for review Prior: Unchanged Discharge Plan Triage Chief Complaint: Weakness ED Provider: John Cook Dx/Rx/DC Orders Clinical Impression: Non-ST elevation [place] (NSTEMI), Hypoxemia, Fatigue, Failure of outpatient treatment Prescriptions: No Action nitroglycerin 0.4 mg tablet, sublingual 0.4 mg sublingual Q5-15M PRN (Reason: chest pain) Qty: 25 RF: 3 pantoprazole 40 MG tablet 40 mg PO DAILY RF: 0 clopidogrel [Plavix] 75 mg Tablet 75 mg PO DAILY RF: 0 Hold Instructions: Resume on 12/30/20. aspirin 81 mg Tablet 81 mg PO DAILY RF: 0 Hold Instructions: Resume on 12/30/20. acetaminophen 325 mg Capsule 325 mg PO Q6H PRN (Reason: Pain) RF: 0 amlodipine 2.5 mg tablet 2.5 mg PO DAILY RF: 0 melatonin 5 mg Tablet 5 mg PO QHS RF: 0 isosorbide mononitrate 60 mg tablet extended release 24 hr 60 mg PO DAILY Qty: 30 RF: 1 carvedilol 12.5 mg tablet 12.5 mg PO BID Qty: 30 RF: 1 lisinopril 2.5 mg tablet 2.5 mg PO DAILY Qty: 30 RF: 1 Eliquis 2.5 mg tablet 2.5 mg PO BID Qty: 60 RF: 11 Primary Care Provider: Jacques Pena Chi Referrals: Jacques Pena Chi, MD [Primary Care Provider] - Disposition Disposition: Acute Care Hospital
--- NOTE | 2021-04-17 15:05 | RAD_ITS ---
STUDY: X-RAY CHEST REASON FOR EXAM: Male, 86 years old. sob, hx CHF TECHNIQUE: Single AP portable view of the chest. COMPARISON: April 15, 2020 FINDINGS: There is a right-sided defibrillator. The heart is enlarged. There is a visualized cardiac stent. There is mild cardiac enlargement. Normal mediastinum and agapito. Normal visualized pulmonary arteries. Normal visualized aortic arch and descending thoracic aorta. There are diffuse degenerative changes of the visualized thoracic spine. Normal visualized ribs, clavicles, and shoulders. There is no demonstrated abnormality of the visualized soft tissue structures of the upper abdomen. RAD/Chest 1 View (Portable) IMPRESSION: No visualized focal infiltrate. Defibrillator mild cardiomegaly cardiac stent. Electronically Signed: Charleen Linares MD at 15:43 EDT Tel , Service support ,
[2021-04-17 15:14] LABS: Absolute Neutrophil Count 3.8 X10^3/uL (2.0-7.7); Basophil# 0.03 X10^3/uL; Basophil% 0.6 % (0-1); Eosinophil# 0.17 X10^3/uL; Eosinophils% 3.1 % (0-5); Hematocrit 33.9 % (40-54); Hemoglobin 10.9 g/dL (13.0-16.5); Lymphocyte % 18.4 % (19-41); Mean Corp Hgb Conc 32.2 g/dL (32-36); Mean Corpuscular Hgb 29.6 pg (27.0-32.0); Mean Corpuscular Volume 92.1 fL (80-94); Mean Platelet Vol. 12.8 fl (6.2-12.0); Monocyte# 0.45 X10^3/uL; Monocyte% 8.3 % (0-10); NRBC Flagged by Analyzer 0 % (0-5); Neutrophil # 3.77 X10^3/uL (2.7-7.7); Neutrophil % 69.2 % (47-70); Platelet Count 159 K/mm3 (150-450); RBC Distribution Width CV 14.6 % (11.6-14.6); RBC Distribution Width SD 49.2 fl (35.1-43.9); Red Blood Count 3.68 M/mm3 (4.6-6.2); White Blood Count 5.4 K/mm3 (4.4-11.0)
[2021-04-17 15:48] LABS: BNP,B-Type NATRIURETIC PEPTIDE 156.5 pg/mL (0-100)
[2021-04-17 15:51] LABS: Anion Gap 7 (5-15); BUN 26 mg/dL (7-18); Chloride 103 mmol/L (98-107); Creatinine, Serum 1.24 mg/dL (0.70-1.30); EST Glomerular Filtration Rate 59 mL/min (>60); Est Glom Filt Rate - Afr Amer 71 mL/min (>60); Estimated Creatinine Clearance 44.97 ml/min; Glucose 134 mg/dL (74-106); Potassium 3.8 mmol/L (3.5-5.1); Sodium Level 137 mmol/L (136-145); Troponin-I HS 167 pg/mL (3.0-78.0)
[2021-04-17 16:26] LABS: Bacteria 0 SEEN /hpf (None Seen)
[2021-04-17 16:31] LABS: Color, Urine Yellow (Yellow); Glucose, Dipstick Normal (Normal); Ketone-Dipstick Negative (Negative); Leukocyte Esterase-Dipstick 100 /ul (Negative); Nitrite-Dipstick Negative (Negative); Occult Blood-Urine 250 /ul (Negative); Protein-Dipstick 30 mg/dl (Negative); Urine Clarity Clear (Clear); Urine Urobilinogen 1 mg/dl (Normal)
[2021-04-17 16:34] LABS: Urine Bilirubin Dipstick 1 mg/dL (Negative)
[2021-04-17 16:37] LABS: Mucous, Urine 1+ /hpf (<or=2+); Squamous Epithelial Cells - UA 0-5 SEEN /hpf (0-5); White Blood Cells 0-5 SEEN /hpf (0-5)
[2021-04-17 16:38] LABS: Red Blood Cells-Urine 10-25 SEEN /hpf (0-5)
--- NOTE | 2021-04-17 18:04 | NURSING ---
PT IS TO TRANSFER TO [facility]; PT AWARE THAT BED WILL BE A LONG WAIT NO GIVEN TIME ON HOW LONG THAT MAY BE.
--- NOTE | 2021-04-17 18:44 | NURSING ---
CALLED [facility], TALKED TO ERNST, AT [facility]
--- NOTE | 2021-04-17 18:51 | NURSING ---
CALLED [facility], TALKED TO HANNY. DR HAYES TALKING TO HER
--- NOTE | 2021-04-17 19:20 | NURSING ---
FAXED FACESHEET AND NEG COVID FROM 04-15 TO [facility]
--- NOTE | 2021-04-17 19:35 | NURSING ---
PER DR HAYES, CANCELED THE TRANSFER TO [facility] MA[facility]. TALKED TO CITLALLI
--- NOTE | 2021-04-17 20:16 | NURSING ---
[facility] 337 NURSE TO NURSE [phone]
--- NOTE | 2021-04-17 20:48 | NURSING ---
PHYSICANS CALLED [facility]. ETA IS 90 TO 120
== END 2021-04-17 22:34 | disposition short-term general hospital (02) ==
PROVIDERS: Emergency Provider Emergency Medicine; PCP Family Medicine Geriatric Medicine
DX: I21.4 Non-ST elevation (NSTEMI) myocardial infarction (principal); R09.02 Hypoxemia; R53.1 Weakness; I11.0 Hypertensive heart disease with heart failure; I50.22 Chronic systolic (congestive) heart failure; I25.119 Atherosclerotic heart disease of native coronary artery with unspecified angina pectoris; K21.9 Gastro-esophageal reflux disease without esophagitis; Z79.82 Long term (current) use of aspirin; Z95.0 Presence of cardiac pacemaker; Z95.5 Presence of coronary angioplasty implant and graft; Z79.01 Long term (current) use of anticoagulants; Z79.899 Other long term (current) drug therapy
CPT/HCPCS: 71045; 80048; 81001; 83880; 84484; 85025; 87426; 93005; 99285; A4216

== ENCOUNTER 2021-04-28 12:36 | Emergency (ER) | payer MEDICARE, OTHER, SELFPAY ==
[2020-04-02 11:50] VITALS: BMI 26.2
[2021-04-28 12:38] VITALS: BP 105/55; PULSE 64; RESP 18; TEMP 35.8; O2SAT 94; BMI 23.6
[2021-04-28 13:00] VITALS: BP 99/54; PULSE 63; RESP 18; O2SAT 95
--- NOTE | 2021-04-28 13:25 | EKG12_ITS ---
Test Reason : HYPOTENSION Blood Pressure : / mmHG Vent. Rate : 060 BPM Atrial Rate : 060 BPM P-R Int : 212 ms QRS Dur : 154 ms QT Int : 468 ms P-R-T Axes : -16 -38 139 degrees QTc Int : 468 ms Atrial-paced rhythm with prolonged AV conduction Left axis deviation Left bundle branch block Abnormal ECG Confirmed by ANTHONY ROCHA, ALIOSN ([id number]), assistant curator BITA ROBB ([id number]) on 04/30/2021 1:10:49 PM Referred By: FREDDY Confirmed By:HAMZAH CRUZ MD
--- NOTE | 2021-04-28 13:25 | EX.ED.DYSGE1 ---
HPI History of Present Illness Chief Complaint: Hypotension Informant: patient and spouse/S.O. Onset/Context/Timing Onset: Weeks (1 wk of weakness/malaise) Timing: Continuous Quality: malaise Location: all over Current Severity: Moderate Maximum Severity: Moderate Worsened by: n/a Relieved by: n/a Associated Symptoms Associated Symptoms: worse today w/ BP 71/41 at home Narrative Narrative: Patient was seen here last week by myself diagnosed with an NSTEMI in context of complex coronary disease and in-stent stenosis and sent to [place] where he had complex PCI and angioplasty. Since discharged home 1 week ago on 4 new blood pressure medications, and told his ejection fraction is 15% (he already has a pacemaker/AICD), he has been feeling malaise and generally weak. No presyncope or syncope. He has been constipated recently, and using magnesium citrate. He used 75 mL 2 days ago and then yesterday since he did not have good results used another 150 mL. He had a good bowel movement and I did help. He and his agree that he is not taking in fluids well. His blood pressure was low this morning, he checked it because he was feeling weaker. He denies any chest discomfort or trouble breathing. [facility] Medical History Acute blood loss anemia Anemia Arthritis Atherosclerosis of coronary artery of [place] heart with angina pectoris BPH (benign prostatic hyperplasia) Bruising Cancer Carotid artery disease Chronic systolic (congestive) heart failure Constipation DDD (degenerative disc disease) Essential (primary) hypertension GERD (gastroesophageal reflux disease) Hematuria Hiatal hernia High cholesterol History of non-ST elevation myocardial infarction (NSTEMI) (11/19/20) HLD (hyperlipidemia) ICD (implantable cardioverter-defibrillator) in place Irregular heart beat Ischemic cardiomyopathy Left bundle branch block (LBBB) Left carotid artery stenosis Male hypogonadism Myocardial infarct Non-smoker Non-STEMI (non-ST elevated myocardial infarction) Nonsustained ventricular tachycardia 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 infarction Pacemaker Paroxysmal atrial fibrillation Polycythemia Segmental and somatic dysfunction of pelvic region Segmental and somatic dysfunction of thoracic region Shortness of breath on exertion Sinus drainage TIA (transient ischemic attack) Wears dentures Wears glasses Home Medications pantoprazole 40 mg PO DAILY 10/29/16 [History Last Taken 01/07/20] nitroglycerin 0.4 mg sublingual tablet 0.4 mg SUBLINGUAL Q5-15M PRN #25 tab 07/22/20 [Rx Last Taken Unknown] melatonin 5 mg PO QHS 12/06/20 [History Last Taken Unknown] acetaminophen 325 mg PO Q6H PRN 12/10/20 [History Last Taken Unknown] amlodipine 2.5 mg PO DAILY 12/10/20 [History Last Taken Unknown] aspirin 81 mg PO DAILY 12/10/20 [History Last Taken 11/30/20 08:00] clopidogrel [Plavix] 75 mg PO DAILY 12/10/20 [History Last Taken 11/30/20] carvedilol 12.5 mg PO BID #30 tab 04/16/21 [Rx Last Taken Unknown] lisinopril 2.5 mg PO DAILY #30 tab 04/16/21 [Rx Last Taken Unknown] Eliquis 5 mg PO BID 04/28/21 [History Last Taken Unknown] isosorbide mononitrate 30 mg PO DAILY 04/28/21 [History Last Taken Unknown] Allergy/AdvReac Type Severity Reaction Status Date / Time hydrochlorothiazide Allergy Severe Severe Verified 04/28/21 12:40 itching rash promethazine [From Phenergan] Allergy Other Verified 04/28/21 12:40 ranolazine [From Ranexa] AdvReac Severe Rash Verified 04/28/21 12:40 omeprazole AdvReac Unknown Verified 04/28/21 12:40 Phenothiazines AdvReac Unknown Verified 04/28/21 12:40 Wscexqx-Tew-Noi Reductase AdvReac myalgias Verified 04/28/21 12:40 Inhibitor PHENEGRANZOLE AdvReac Unknown Uncoded 04/28/21 12:40 Family History Father , Age 37 from [place] CAD (coronary artery disease) Myocardial infarction Sudden cardiac Mother , age 96 Diabetes Surgical History History of appendectomy History of cataract surgery History of coronary artery stent placement (09/16/19) History of electrophysiologic study (2009) History of hernia repair History of implantable cardiac defibrillator (ICD) (05/17/10) History of intraocular lens implant History of intravascular stent placement History of left heart catheterization (12/20/20) History of transurethral resection of prostate (12/16/20) Social History Smoking Status: Never smoker alcohol intake: never substance use type: does not use caffeine: Yes Type: carbonated beverages Number of servings: 1 and coffee Number of servings: 1 what type of physical activity do you participate in: none ROS ROS ED Constitutional Constitutional ED: Reports fatigue and malaise; Denies chills or fever(s) Eyes Eyes: Denies change in vision or diplopia ENT ENT ED: Denies rhinorrhea or sore throat Cardiovascular Cardiovascular: Denies chest pain or palpitations Respiratory/Chest Respiratory/Chest: Denies cough or dyspnea Gastrointestinal Gastrointestinal: Denies abdominal pain, diarrhea, nausea or vomiting Genitourinary Genitourinary ED: Denies dysuria or hematuria Musculoskeletal Musculoskeletal: Denies back pain or neck pain Integumentary Denies abscess or rash Neurologic Neurologic: Denies headache(s), paresthesias or weakness Psychiatric Psychiatric: Denies anxiety or suicidal thoughts EXAM Physical Exam Const Vital Signs: 04/28/21 12:38 04/28/21 13:00 04/28/21 13:01 Temperature 96.5 F L Temperature Source Temporal Pulse Rate 64 63 Respiratory Rate 18 18 Respiratory Effort Normal Non-Labored Respiratory Pattern Normal Blood Pressure 105/55 L 99/54 L Blood Pressure Mean 71 69 Pulse Ox 94 95 Oxygen Delivery Method Room Air Room Air 04/28/21 14:38 Temperature Temperature Source Pulse Rate 60 Respiratory Rate 14 Respiratory Effort Respiratory Pattern Blood Pressure 112/58 L Blood Pressure Mean 76 Pulse Ox 98 Oxygen Delivery Method Room Air Positive well nourished and well developed Constitutional Narrative: Alert and conversive General Appearance ED: well developed and NAD HEENT Reports moist mucous membranes normocephalic and atraumatic Eyes PERRL and EOMs intact bilaterally Neck full ROM and supple Resp normal respiratory effort and clear to auscultation bilaterally Cardio regular rate, regular rhythm and no murmurs GI non-tender and non-distended Auscultation: normoactive bowel sounds Palpation: soft Back/Spine no CVA tenderness General Back: other FROM Extremity normal to inspection and no calf tenderness General Extremety ED: Negative for edema, pulses abnormal or tenderness General Extremity: Negative for edema or pulses abnormal Neuro oriented x3, CN's II-XII intact bilaterally and no sensory deficits noted Sensorium / Orientation: awake and alert Motor Exam: strength 5/5 throughout Skin no rashes or lesions noted and no wounds MDM MDM MDM Narrative Medical decision making narrative: Patient was given 500 cc bolus of IV fluids, I suspect the magnesium citrate pushed him over the edge of mild chronic dehydration and probably is mostly responsible for his transient hypotension which is not present here, and the fact that he is on amlodipine, carvedilol, Imdur, and lisinopril probably gives him very little reserve with regards to his blood pressure. After his IV fluids patient is feeling much better and his blood pressure is improved, 112/58 on reevaluation. His initial troponin was elevated, however I suspect it is trending down given his procedure this past week. I repeated it 1-2 hours after the initial, it is 500, confirming that it is trending down, not up. Therefore I am comfortable discharging him home with close outpatient follow-up, and I would recommend that he hold tonight's dose of carvedilol since he has a resting heart rate around 60 and is already taken all of his morning blood pressure medications earlier. Also advised avoiding magnesium citrate and other laxatives for now, and maybe doing MiraLAX 1 capful daily as a stool softener. Discussed with he and at length they are comfortable with that plan. Lab Data Attestation: I reviewed the patient's lab results. Labs: Laboratory Results - last 24 hr 04/28/21 04/28/21 04/28/21 13:50 13:50 14:25 WBC 5.8 RBC 3.64 L Hgb 10.7 L Hct 33.8 L MCV 92.9 MCH 29.4 MCHC 31.7 L RDW Std Deviation 48.6 H RDW Coeff of [place]ane 14.3 Plt Count 184 MPV 12.9 H Immature Gran % (Auto) 0.500 Neut % (Auto) 70.3 H Lymph % (Auto) 13.7 L [place] % (Auto) 8.5 Eos % (Auto) 6.1 H Baso % (Auto) 0.9 Absolute Neuts (auto) 4.1 Absolute Lymphs (auto) 0.79 L Nucleated RBC % 0 Sodium 135 L Potassium 4.4 Chloride 103 Carbon Dioxide 30.0 Anion Gap 2 L BUN 19 H Creatinine 1.27 Estim Creat Clear Calc 43.91 Est GFR (MDRD) Af Amer 69 Est GFR (MDRD) Non-Af 57 L BUN/Creatinine Ratio 15.0 Glucose 146 H Calcium 9.0 Troponin I High Sens 507 H* Urine Color Yellow Urine Clarity Clear Urine pH 7.0 Ur Specific [place] 1.010 Urine Protein Negative Urine Glucose (UA) Normal Urine Ketones Negative Urine Occult Blood 50 H Urine Nitrite Negative Urine Bilirubin Negative Urine Urobilinogen Normal Ur Leukocyte Esterase 25 H Urine RBC 5-10 SEEN Urine WBC 0-5 SEEN Ur Squamous Epith Cells 0 SEEN Urine Bacteria 0 SEEN Urine Mucus 0 SEEN 04/28/21 16:00 WBC RBC Hgb Hct MCV MCH MCHC RDW Std Deviation RDW Coeff of [place] Plt Count MPV Immature Gran % (Auto) Neut % (Auto) Lymph % (Auto) [place] % (Auto) Eos % (Auto) Baso % (Auto) Absolute Neuts (auto) Absolute Lymphs (auto) Nucleated RBC % Sodium Potassium Chloride Carbon Dioxide Anion Gap BUN Creatinine Estim Creat Clear Calc Est GFR (MDRD) Af Amer Est GFR (MDRD) Non-Af BUN/Creatinine Ratio Glucose Calcium Troponin I High Sens 500 H* Urine Color Urine Clarity Urine pH Ur Specific [place] Urine Protein Urine Glucose (UA) Urine Ketones Urine Occult Blood Urine Nitrite Urine Bilirubin Urine Urobilinogen Ur Leukocyte Esterase Urine RBC Urine WBC Ur Squamous Epith Cells Urine Bacteria Urine Mucus EKG Initial EKG: Attestation: I personally reviewed and interpreted this EKG as follows: Interpretation: No Acute Injury Pattern, Paced and LBBB (Pattern) Discharge Plan Triage Chief Complaint: Hypotension ED Provider: John Cook Dx/Rx/DC Orders Clinical Impression: Mild dehydration, Transient hypotension Instructions: ED Low Blood Pressure, All Causes Prescriptions: Continued nitroglycerin 0.4 mg tablet, sublingual 0.4 mg sublingual Q5-15M PRN (Reason: chest pain) Qty: 25 RF: 3 pantoprazole 40 MG tablet 40 mg PO DAILY RF: 0 clopidogrel [Plavix] 75 mg Tablet 75 mg PO DAILY RF: 0 Hold Instructions: Resume on 12/30/20. aspirin 81 mg Tablet 81 mg PO DAILY RF: 0 Hold Instructions: Resume on 12/30/20. acetaminophen 325 mg Capsule 325 mg PO Q6H PRN (Reason: Pain) RF: 0 amlodipine 2.5 mg tablet 2.5 mg PO DAILY RF: 0 melatonin 5 mg Tablet 5 mg PO QHS RF: 0 lisinopril 2.5 mg tablet 2.5 mg PO DAILY Qty: 30 RF: 1 isosorbide mononitrate 60 mg tablet extended release 24 hr 30 mg PO DAILY RF: 0 Eliquis 2.5 mg tablet 5 mg PO BID RF: 0 Held carvedilol 12.5 mg tablet 12.5 mg PO BID Qty: 30 RF: 1 Hold Instructions: Resume on 04/29/21. 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 Disposition Disposition: Home, Self Care
[2021-04-28 14:04] LABS: Absolute Lymphocyte Count 0.79 X10^3/uL (0.83-4.51); Absolute Neutrophil Count 4.1 X10^3/uL (2.0-7.7); Basophil# 0.05 X10^3/uL; Basophil% 0.9 % (0-1); Eosinophil# 0.35 X10^3/uL; Eosinophils% 6.1 % (0-5); Hematocrit 33.8 % (40-54); Hemoglobin 10.7 g/dL (13.0-16.5); Lymphocyte # 0.79 X10^3/ul (0.83-4.51); Lymphocyte % 13.7 % (19-41); Mean Corp Hgb Conc 31.7 g/dL (32-36); Mean Corpuscular Hgb 29.4 pg (27.0-32.0); Mean Corpuscular Volume 92.9 fL (80-94); Mean Platelet Vol. 12.9 fl (6.2-12.0); Monocyte# 0.49 X10^3/uL; Monocyte% 8.5 % (0-10); NRBC Flagged by Analyzer 0 % (0-5); Neutrophil # 4.07 X10^3/uL (2.7-7.7); Neutrophil % 70.3 % (47-70); POSITIVE MORPHOLOGY YES; Platelet Count 184 K/mm3 (150-450); RBC Distribution Width CV 14.3 % (11.6-14.6); RBC Distribution Width SD 48.6 fl (35.1-43.9); Red Blood Count 3.64 M/mm3 (4.6-6.2); White Blood Count 5.8 K/mm3 (4.4-11.0)
[2021-04-28 14:21] LABS: Anion Gap 2 (5-15); BUN 19 mg/dL (7-18); Chloride 103 mmol/L (98-107); Creatinine, Serum 1.27 mg/dL (0.70-1.30); EST Glomerular Filtration Rate 57 mL/min (>60); Est Glom Filt Rate - Afr Amer 69 mL/min (>60); Estimated Creatinine Clearance 43.91 ml/min; Glucose 146 mg/dL (74-106); Potassium 4.4 mmol/L (3.5-5.1); Sodium Level 135 mmol/L (136-145); Troponin-I HS 507 pg/mL (3.0-78.0)
[2021-04-28 14:35] LABS: Bacteria 0 SEEN /hpf (None Seen); Mucous, Urine 0 SEEN /hpf (<or=2+); Squamous Epithelial Cells - UA 0 SEEN /hpf (0-5)
[2021-04-28 14:38] VITALS: BP 112/58; PULSE 60; RESP 14; O2SAT 98
[2021-04-28 14:40] LABS: Color, Urine Yellow (Yellow); Glucose, Dipstick Normal (Normal); Ketone-Dipstick Negative (Negative); Leukocyte Esterase-Dipstick 25 /ul (Negative); Nitrite-Dipstick Negative (Negative); Occult Blood-Urine 50 /ul (Negative); Protein-Dipstick Negative (Negative); Urine Bilirubin Dipstick Negative (Negative); Urine Clarity Clear (Clear); Urine Urobilinogen Normal (Normal)
[2021-04-28 14:44] LABS: Differential Indicated SCAN CRITERIA MET
[2021-04-28 14:51] LABS: Red Blood Cells-Urine 5-10 SEEN /hpf (0-5); White Blood Cells 0-5 SEEN /hpf (0-5)
[2021-04-28 16:45] LABS: Troponin-I HS 500 pg/mL (3.0-78.0)
[2021-04-28 17:01] VITALS: BP 124/67; PULSE 64; RESP 25; O2SAT 98
== END 2021-04-28 17:05 | disposition home or self-care (01) ==
PROVIDERS: Emergency Provider Emergency Medicine; PCP Family Medicine Geriatric Medicine
DX: E86.0 Dehydration (principal); I95.9 Hypotension, unspecified; I11.0 Hypertensive heart disease with heart failure; I25.2 Old myocardial infarction; I50.22 Chronic systolic (congestive) heart failure; I25.119 Atherosclerotic heart disease of native coronary artery with unspecified angina pectoris; K21.9 Gastro-esophageal reflux disease without esophagitis; Z79.01 Long term (current) use of anticoagulants; Z79.82 Long term (current) use of aspirin; Z79.899 Other long term (current) drug therapy; Z95.0 Presence of cardiac pacemaker
CPT/HCPCS: 80048; 81001; 84484; 85025; 93005; 99283; J7040; A4216

== ENCOUNTER 2021-08-09 00:59 | Inpatient (IN) | payer MEDICARE, OTHER, SELFPAY ==
[2020-04-02 11:50] VITALS: BMI 26.2
[2021-08-09] VITALS (15 sets, daily range): BP systolic 100–137; BP diastolic 56–90; PULSE 63–89; RESP 16–24; TEMP 36.4–36.8; O2SAT 85–98; BMI 25.9; BMI 24.8
--- NOTE | 2021-08-09 01:59 | RAD_ITS ---
STUDY: X-RAY CHEST REASON FOR EXAM: Male, 86 years old. chest pain TECHNIQUE: Single AP portable view of the chest. COMPARISON: None. FINDINGS: Pacemaker is seen on the right side. Ill-defined subpleural groundglass opacities are seen more prominent in the lung bases , may represent atypical pneumonia or viral pneumonia (COVID-19 ?). There is no demonstrated pleural abnormality. Normal size heart. Normal mediastinum and [place]. Normal visualized pulmonary arteries. Normal visualized aortic arch and descending thoracic aorta. Normal visualized thoracic spine. Normal visualized ribs, clavicles, and shoulders. There is no demonstrated abnormality of the visualized soft tissue structures of the upper abdomen. RAD/Chest 1 View (Portable) IMPRESSION: Ill-defined subpleural groundglass opacities are seen more prominent in the lung bases , may represent atypical pneumonia or viral pneumonia (COVID-19 ?). Electronically Signed: Ana Mckenzie MD at 2:56 EST Tel , Service support ,
--- NOTE | 2021-08-09 02:05 | EKG12_ITS ---
Test Reason : CP Blood Pressure : / mmHG Vent. Rate : 087 BPM Atrial Rate : 087 BPM P-R Int : 164 ms QRS Dur : 156 ms QT Int : 424 ms P-R-T Axes : -03 -33 134 degrees QTc Int : 510 ms Sinus rhythm with occasional Premature ventricular complexes Left axis deviation Left bundle branch block Abnormal ECG Confirmed by JENNIFER ROCHA, JESSE ([id number]), society editor KRISTI LEIJA ([id number]) on 08/11/2021 11:12:24 AM Referred By: MANOLO Confirmed By:JESSE RODRIGUEZ MD
[2021-08-09 02:10] LABS: Absolute Lymphocyte Count 1.17 X10^3/uL (0.83-4.51); Basophil# 0.07 X10^3/uL; Eosinophil# 0.32 X10^3/uL; Eosinophils% 4.5 % (0-5); Hematocrit 36.1 % (40-54); Hemoglobin 11.6 g/dL (13.0-16.5); Lymphocyte # 1.17 X10^3/ul (0.83-4.51); Lymphocyte % 16.4 % (19-41); Mean Corp Hgb Conc 32.1 g/dL (32-36); Mean Corpuscular Hgb 29.3 pg (27.0-32.0); Mean Corpuscular Volume 91.2 fL (80-94); Mean Platelet Vol. 13.4 fl (6.2-12.0); Monocyte# 0.58 X10^3/uL; Monocyte% 8.1 % (0-10); NRBC Flagged by Analyzer 0 % (0-5); Neutrophil # 4.96 X10^3/uL (2.7-7.7); Neutrophil % 69.7 % (47-70); Platelet Count 172 K/mm3 (150-450); RBC Distribution Width CV 14.5 % (11.6-14.6); RBC Distribution Width SD 48.4 fl (35.1-43.9); Red Blood Count 3.96 M/mm3 (4.6-6.2); White Blood Count 7.1 K/mm3 (4.4-11.0)
[2021-08-09] MEDS: 0.9% Normal Saline 1,000 ML 999 ML IV (02:13)
[2021-08-09 02:40] LABS: Anion Gap 7 (5-15); BUN 21 mg/dL (7-18); BUN/Creat Ratio 20.2 RATIO (10-20); Calcium,Total 9.3 mg/dL (8.5-10.1); Chloride 107 mmol/L (98-107); Creatinine, Serum 1.04 mg/dL (0.70-1.30); EST Glomerular Filtration Rate 72 mL/min (>60); Est Glom Filt Rate - Afr Amer 87 mL/min (>60); Estimated Creatinine Clearance 53.62 ml/min; Glucose 116 mg/dL (74-106); Magnesium 2.2 mg/dL (1.6-2.6); Potassium 3.8 mmol/L (3.5-5.1); Sodium Level 140 mmol/L (136-145); Troponin-I HS 187 pg/mL (3.0-78.0)
--- NOTE | 2021-08-09 03:07 | EDS_ITS ---
HPI History of Present Illness Chief Complaint: Chest Pain Narrative Narrative: Patient is an 86-year-old male with past medical history of CAD as well as nonsustained ventricular tachycardia. He has had multiple stents placed in the past with the most recent being approximately 6 months ago. He also has a pacemaker in place that is been in for multiple years. He states over the past 2 weeks he will have brief episodes where he has chest discomfort with shortness of breath that lasts anywhere from a few seconds to a few minutes and resolved. He states that he does feel short of breath with this. He states that this evening the symptoms seem to be more intense than over the past few weeks and secondary to this he comes in for evaluation. The patient does state he is on Eliquis as well as Plavix secondary to his previous CAD events [facility] Medical History Acute blood loss anemia Anemia Arthritis Atherosclerosis of coronary artery of [place] heart with angina pectoris BPH (benign prostatic hyperplasia) Bruising Cancer Carotid artery disease Chronic systolic (congestive) heart failure Constipation DDD (degenerative disc disease) Essential (primary) hypertension GERD (gastroesophageal reflux disease) Hematuria Hiatal hernia History of non-ST elevation myocardial infarction (NSTEMI) (04/2021) HLD (hyperlipidemia) Irregular heart beat Ischemic cardiomyopathy Left bundle branch block (LBBB) Left carotid artery stenosis Male hypogonadism Non-smoker Nonsustained ventricular tachycardia 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 infarction Pacemaker Paroxysmal atrial fibrillation Polycythemia Secondary pulmonary arterial hypertension Segmental and somatic dysfunction of pelvic region Segmental and somatic dysfunction of thoracic region Shortness of breath on exertion Sinus drainage TIA (transient ischemic attack) Wears dentures Wears glasses Home Medications pantoprazole 40 mg PO DAILY 10/29/16 [History Last Taken 08/13/19] nitroglycerin 0.4 mg sublingual tablet 0.4 mg SUBLINGUAL Q5-15M PRN #25 tab 07/22/20 [Rx Last Taken Unknown] acetaminophen 325 mg PO Q6H PRN 12/10/20 [History Last Taken Unknown] aspirin 81 mg PO DAILY 12/10/20 [History Last Taken 11/30/20 08:00] clopidogrel 75 mg tablet 75 mg PO DAILY #90 tab 05/06/21 [Rx Last Taken Unknown] apixaban 5 mg tablet 5 mg PO BID #180 tab 06/03/21 [Rx Last Taken Unknown] carvedilol 12.5 mg tablet 12.5 mg PO BID 07/26/21 [History Last Taken Unknown] fluticasone propionate 2 spray INTRANASAL DAILY 08/09/21 [History Last Taken Unknown] Allergy/AdvReac Type Severity Reaction Status Date / Time hydrochlorothiazide Allergy Severe Severe Verified 08/09/21 01:04 itching rash promethazine [From Phenergan] Allergy Other Verified 08/09/21 01:04 ranolazine [From Ranexa] AdvReac Severe Rash Verified 08/09/21 01:04 omeprazole AdvReac Unknown Verified 08/09/21 01:04 Phenothiazines AdvReac Unknown Verified 08/09/21 01:04 Zdhclvu-ZYC-PuE Reductase AdvReac myalgias Verified 08/09/21 01:04 Inhibitor [Dpigbvu-Oyj-Uoc Reductase Inhibitor] PHENEGRANZOLE AdvReac Unknown Uncoded 08/09/21 01:04 Family History Father , Age 37 from [place] CAD (coronary artery disease) Myocardial infarction Sudden cardiac Mother , age 96 Diabetes Surgical History History of appendectomy History of cataract surgery History of coronary artery stent placement (04/19/21) History of electrophysiologic study (2009) History of hernia repair History of implantable cardiac defibrillator (ICD) (05/17/10) History of intraocular lens implant History of left heart catheterization (12/20/20) History of transurethral resection of prostate (12/16/20) Social History Smoking Status: Never smoker alcohol intake: never substance use type: does not use caffeine: Yes Type: carbonated beverages Number of servings: 1 and coffee Number of servings: 1 what type of physical activity do you participate in: none ROS ROS ED Constitutional Constitutional ED: Denies chills or fever(s) ENT ENT ED: Denies sore throat Cardiovascular Cardiovascular: Reports chest pain and palpitations Respiratory/Chest Respiratory/Chest: Reports dyspnea; Denies cough Gastrointestinal Gastrointestinal: Reports nausea; Denies abdominal pain, diarrhea or vomiting Genitourinary Genitourinary ED: Denies dysuria Musculoskeletal Musculoskeletal: Denies myalgias Integumentary Denies rash Neurologic Neurologic: Denies headache(s) Hematologic/Lymphatic Hematologic/Lymphatic: Reports easy bleeding and easy bruising EXAM Physical Exam Const Vital Signs: 08/09/21 01:01 08/09/21 01:08 08/09/21 03:00 Temperature 97.6 F L Temperature Source Temporal Pulse Rate 87 89 Respiratory Rate 24 H 17 Respiratory Effort Normal Respiratory Pattern Normal Blood Pressure 135/82 H 134/74 H Blood Pressure Mean 99 94 Pulse Ox 92 85 Oxygen Delivery Method Room Air Room Air Oxygen Flow Rate (L/min) 08/09/21 03:16 08/09/21 04:41 08/09/21 04:46 Temperature Temperature Source Pulse Rate 76 81 Respiratory Rate 18 Respiratory Effort Respiratory Pattern Blood Pressure 129/73 H 132/87 H Blood Pressure Mean 91 Pulse Ox 94 96 Oxygen Delivery Method Nasal Cannula Nasal Cannula Oxygen Flow Rate (L/min) 2 2 08/09/21 05:05 Temperature 97.6 F L Temperature Source Temporal Pulse Rate 80 Respiratory Rate 20 H Respiratory Effort Respiratory Pattern Blood Pressure 128/78 H Blood Pressure Mean 94 Pulse Ox 98 Oxygen Delivery Method Nasal Cannula Oxygen Flow Rate (L/min) 2 Positive well nourished and well developed General Appearance ED: well developed HEENT Reports dry mucous membranes Mouth ED: Yes dry mucous membranes Mouth: dry mucous membranes Eyes PERRL and EOMs intact bilaterally General Eye ED: Yes pale conjunctiva Neck supple and no JVD Chest Wall palpation of chest normal Resp normal respiratory effort and clear to auscultation bilaterally Cardio regular rate and regular rhythm Rate: other Other Details: Radial pulses are +2-4 bilaterally are equal and symmetric GI normal to inspection, nondistended, normoactive bowel sounds, non-tender, non- distended and no masses Auscultation: normoactive bowel sounds Palpation: soft Extremity normal to inspection Extremity Narrative: No asymmetric edema no pitting edema negative Homans' sign bilaterally Neuro oriented x3 and CN's II-XII intact bilaterally Sensorium / Orientation: alert Motor Exam: strength 5/5 throughout Psych mental status grossly normal Skin no rashes or lesions noted Skin Narrative: Skin is pale in color with mild increase in skin turgor MDM MDM MDM Narrative Medical decision making narrative: Patient arrived to the ER in no acute distress with stable vitals. He reported his chest discomfort was intermittent causing shortness of breath but only would last for a few seconds to few minutes and then resolve. He has multiple cardiac risk factors and secondary to this a basic cardiac work-up was obtained. His initial troponin was elevated at 187 but his 2-hour repeat actually down trended to 180. Chart review reveals that his troponins are typically elevated around 140. His chest x-ray questioned a viral pneumonia such as Covid but his swab is negative and clinically patient does not have a fever or cough to suggest this and therefore do feel it does not clinically correlate. The case was discussed with cardiology on-call based on the patient's symptoms persisting for 2 weeks and his multiple risk factors. They do recommend that with his significant cardiac history and the fact he has been complaining of intermittent chest discomfort that he should be placed in the hospital and most likely undergo a repeat heart cath. The plan of care was discussed with the patient and he is agreeable to this and therefore be admitted at this time Lab Data Attestation: I reviewed the patient's lab results. Labs: Laboratory Results - last 24 hr 08/09/21 08/09/21 08/09/21 01:10 01:10 03:11 WBC 7.1 RBC 3.96 L Hgb 11.6 L Hct 36.1 L MCV 91.2 MCH 29.3 MCHC 32.1 RDW Std Deviation 48.4 H RDW Coeff of [place]ane 14.5 Plt Count 172 MPV 13.4 H Immature Gran % (Auto) 0.300 Neut % (Auto) 69.7 Lymph % (Auto) 16.4 L [place] % (Auto) 8.1 Eos % (Auto) 4.5 Baso % (Auto) 1.0 Absolute Neuts (auto) 5.0 Absolute Lymphs (auto) 1.17 Nucleated RBC % 0 Sodium 140 Potassium 3.8 Chloride 107 Carbon Dioxide 26.0 Anion Gap 7 BUN 21 H Creatinine 1.04 Estim Creat Clear Calc 53.62 Est GFR (MDRD) Af Amer 87 Est GFR (MDRD) Non-Af 72 BUN/Creatinine Ratio 20.2 H Glucose 116 H Calcium 9.3 Magnesium 2.2 Troponin I High Sens 187 H* 180 H* Radiography Diagnostic Testing: Clinical Impression(s) from Imaging Studies Chest X-Ray 08/09/21 01:59 IMPRESSION: Ill-defined subpleural groundglass opacities are seen more prominent in the lung bases , may represent atypical pneumonia or viral pneumonia (COVID-19 ?). Electronically Signed: Ana Mckenzie MD at 2:56 EST Tel , Service support , Discharge Plan Triage Chief Complaint: Chest Pain ED Provider: Jarocho Beck Dx/Rx/DC Orders Clinical Impression: Non-ST elevation (NSTEMI) myocardial infarction Prescriptions: No Action nitroglycerin 0.4 mg tablet, sublingual 0.4 mg sublingual Q5-15M PRN (Reason: chest pain) Qty: 25 RF: 3 clopidogrel [Plavix] 75 mg tablet 75 mg PO DAILY Qty: 90 RF: 3 Hold Instructions: Resume on 12/30/20. pantoprazole 40 MG tablet 40 mg PO DAILY RF: 0 aspirin 81 mg Tablet 81 mg PO DAILY RF: 0 Hold Instructions: Resume on 12/30/20. acetaminophen 325 mg Capsule 325 mg PO Q6H PRN (Reason: Pain) RF: 0 fluticasone propionate 50 mcg/actuation spray,suspension 2 spray INTRANASAL DAILY RF: 0 Eliquis 5 mg tablet 5 mg PO BID Qty: 180 RF: 3 carvedilol 12.5 mg tablet 12.5 mg PO BID RF: 0 Primary Care Provider: Jacques Pena Chi Referrals: Jacques Pena Chi, MD [Primary Care Provider] - Disposition Disposition: Acute Care Hospital [facility]
[2021-08-09 04:05] LABS: Troponin-I HS 180 pg/mL (3.0-78.0)
[2021-08-09] MEDS: Nitroglycerin Oint 1 INCH PACKET TD (04:46)
--- NOTE | 2021-08-09 04:54 | HP.PCM.HOS_ITS ---
HPI - General General Date of Admission: 08/09/21 HPI Narrative FLEX GARCIA, is a 86 M with a significant history of CAD status post 11 stents with last stent placed about 6 months ago who presents at the emergency department with intermittent but progressively worsening substernal chest pain. He described the chest pain as pressure. The chest pain occasionally radiates to his left chest. The pain worsens with movement and moving his arms. The pain improves with rest. Associated with his symptom is shortness of breath and diaphoresis. Also he reports episodes of syncope without collapse. On the day of presentation patient was also worried that his blood pressure was 140/80 and his pulse was in the in the 80s. He reports a goal blood pressure of 115/50-60 and a goal pulse of 65. This finding of blood pressure and pulse made him worried and is contributory to patient coming to the emergency department. He report that in about every 5 minutes he feels his pacemaker kicking in. He correlates his breath change to his pacemaker working [facility] Medical History Acute blood loss anemia Anemia Arthritis Atherosclerosis of coronary artery of [place] heart with angina pectoris BPH (benign prostatic hyperplasia) Bruising Cancer Carotid artery disease Chronic systolic (congestive) heart failure Constipation DDD (degenerative disc disease) Essential (primary) hypertension GERD (gastroesophageal reflux disease) Hematuria Hiatal hernia History of non-ST elevation myocardial infarction (NSTEMI) (04/2021) HLD (hyperlipidemia) Irregular heart beat Ischemic cardiomyopathy Left bundle branch block (LBBB) Left carotid artery stenosis Male hypogonadism Non-smoker Nonsustained ventricular tachycardia 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 infarction Pacemaker Paroxysmal atrial fibrillation Polycythemia Secondary pulmonary arterial hypertension Segmental and somatic dysfunction of pelvic region Segmental and somatic dysfunction of thoracic region Shortness of breath on exertion Sinus drainage TIA (transient ischemic attack) Wears dentures Wears glasses Home Medications pantoprazole 40 mg PO DAILY 10/29/16 [History Last Taken 08/13/19] nitroglycerin 0.4 mg sublingual tablet 0.4 mg SUBLINGUAL Q5-15M PRN #25 tab 07/22/20 [Rx Last Taken Unknown] acetaminophen 325 mg PO Q6H PRN 12/10/20 [History Last Taken Unknown] aspirin 81 mg PO DAILY 12/10/20 [History Last Taken 11/30/20 08:00] clopidogrel 75 mg tablet 75 mg PO DAILY #90 tab 05/06/21 [Rx Last Taken Unknown] apixaban 5 mg tablet 5 mg PO BID #180 tab 06/03/21 [Rx Last Taken Unknown] carvedilol 12.5 mg tablet 12.5 mg PO BID 07/26/21 [History Last Taken Unknown] fluticasone propionate 2 spray INTRANASAL DAILY 08/09/21 [History Last Taken Unknown] Allergy/AdvReac Type Severity Reaction Status Date / Time hydrochlorothiazide Allergy Severe Severe Verified 08/09/21 01:04 itching rash promethazine [From Phenergan] Allergy Other Verified 08/09/21 01:04 ranolazine [From Ranexa] AdvReac Severe Rash Verified 08/09/21 01:04 omeprazole AdvReac Unknown Verified 08/09/21 01:04 Phenothiazines AdvReac Unknown Verified 08/09/21 01:04 Rnbllwu-YZA-PjV Reductase AdvReac myalgias Verified 08/09/21 01:04 Inhibitor [Vebxick-Jla-Qpm Reductase Inhibitor] PHENEGRANZOLE AdvReac Unknown Uncoded 08/09/21 01:04 Family History Father , Age 37 from [place] CAD (coronary artery disease) Myocardial infarction Sudden cardiac Mother , age 96 Diabetes Surgical History History of appendectomy History of cataract surgery History of coronary artery stent placement (04/19/21) History of electrophysiologic study (2009) History of hernia repair History of implantable cardiac defibrillator (ICD) (05/17/10) History of intraocular lens implant History of left heart catheterization (12/20/20) History of transurethral resection of prostate (12/16/20) Social History Smoking Status: Never smoker alcohol intake: never substance use type: does not use caffeine: Yes Type: carbonated beverages Number of servings: 1 and coffee Number of servings: 1 what type of physical activity do you participate in: none ROS ROS Narrative Constitutional: Denies fever, chills, fatigue, anorexia and change in weight Eyes: Denies blurry vision, change in eye color, change in vision, discharge from eye(s), double vision, erythema, eye pain, loss of vision or other HEENT: Denies abnormal hearing, dysphagia, ear pain, epistaxis, headache(s), hearing loss, nasal congestion, nasal discharge, post nasal drip, sinus pressure, sore throat or other Cardiovascular: Reports chest pain. Denies palpitations. Respiratory/Chest: Reports shortness of breath. Denies cough. Gastrointestinal: Denies abdominal pain, coffee ground emesis, constipation, [place]ona rrhea, dyspepsia, hematemesis, hematochezia, loose stools, melena, nausea, vomiting or other. He reports early satiety. Genitourinary: Denies burning urination, difficulty urinating, dysuria, hematu candelaria, nocturia, urinary frequency, urinary hesitancy, urinary incontinence, urinary urgency or other Musculoskeletal: Denies arthralgias, back pain, joint pain, joint stiffness, joint swelling, myalgias, neck pain or other Neurologic: Denies abnormal gait, abnormal speech, confusion, disequilibrium, dizziness, focal weakness, headache(s), numbness, paresthesias, seizure-like activity, seizures, syncope, tingling, tremor(s) or other Psychiatric: Denies anxiety, depression, homicidal ideation, suicidal ideation or other Endocrinology: Denies change in body appearance, cold intolerance, excessive sweating, heat intolerance, polydipsia, polyuria or other Hematologic/Lymphatic: Denies anemia, easy bleeding, easy bruising, lymphadenopathy or other Integumentary: Denies rashes Allergic/Immunologic: Denies rhinitis, hives, eczema, asthma or other Vital Signs Vital Signs Vital Signs: 08/09/21 01:01 08/09/21 01:08 08/09/21 03:00 Temperature 97.6 F L Temperature Source Temporal Pulse Rate 87 89 Respiratory Rate 24 H 17 Respiratory Effort Normal Respiratory Pattern Normal Blood Pressure 135/82 H 134/74 H Blood Pressure Mean 99 94 Pulse Ox 92 85 Oxygen Delivery Method Room Air Room Air Oxygen Flow Rate (L/min) 08/09/21 03:16 08/09/21 04:41 08/09/21 04:46 Temperature Temperature Source Pulse Rate 76 81 Respiratory Rate 18 Respiratory Effort Respiratory Pattern Blood Pressure 129/73 H 132/87 H Blood Pressure Mean 91 Pulse Ox 94 96 Oxygen Delivery Method Nasal Cannula Nasal Cannula Oxygen Flow Rate (L/min) 2 2 Weight Weight: 81.8 kg Body Mass Index (BMI) 25.9 Physical Exam Narrative Physical exam: General: Well-nourished, well-developed. Head: Normocephalic, atraumatic, no tenderness Eyes: PERRLA, EOMI ENT, no trauma, moist mucous membranes, no rhinorrhea Neck: Nontender, full range of motion, no spinal tenderness, deformities, step- off CVS: Regular rate and rhythm. S1-S2 present. No murmur, gallop or rub. Respiratory : clear to auscultation bilaterally, chest wall nontender, no wheezing Abdomen: Soft, nontender, nondistended, normal bowel sounds, no masses : Deferred Back: Nontender, no CVA tenderness, no midline spinal tenderness, deformities, step-offs Extremities: Nontender full range of motion, no trauma Skin: Normal color, no trauma, abrasions Neuro: Alert, oriented, cranial nerves II through XII grossly intact. Psychiatry: Normal mood. Normal affect. Not depressed. Not anxious. Results Lab / Micro Data Result Diagrams: 08/09/21 01:10 08/09/21 01:10 Labs: Laboratory Results - last 24 hr 08/09/21 01:10: WBC 7.1, RBC 3.96 L, Hgb 11.6 L, Hct 36.1 L, MCV 91.2, MCH 29.3, MCHC 32.1, RDW Std Deviation 48.4 H, RDW Coeff of Dane 14.5, Plt Count 172, MPV 13.4 H, Immature Gran % (Auto) 0.300, Neut % (Auto) 69.7, Lymph % (Auto) 16.4 L, Sampson % (Auto) 8.1, Eos % (Auto) 4.5, Baso % (Auto) 1.0, Absolute Neuts (auto) 5.0, Absolute Lymphs (auto) 1.17, Nucleated RBC % 0 08/09/21 01:10: Sodium 140, Potassium 3.8, Chloride 107, Carbon Dioxide 26.0, Anion Gap 7, BUN 21 H, Creatinine 1.04, Estim Creat Clear Calc 53.62, Est GFR (MDRD) Af Amer 87, Est GFR (MDRD) Non-Af 72, BUN/Creatinine Ratio 20.2 H, Glucose 116 H, Calcium 9.3, Magnesium 2.2, Troponin I High Sens 187 H* 08/09/21 03:11: Troponin I High Sens 180 H* Micro: Microbiology 08/09/21 03:11 Nasal Secretion SARS-CoV-2 Antigen (Rapid) - Final Radiology Impression Chest X-Ray 08/09/21 01:59 IMPRESSION: Ill-defined subpleural groundglass opacities are seen more prominent in the lung bases , may represent atypical pneumonia or viral pneumonia (COVID-19 ?). Electronically Signed: Ana Mckenzie MD at 2:56 EST Tel , Service support , Assessment & Plan Assessment/Plan (1) Non-ST elevation (NSTEMI) myocardial infarction: (2) History of implantable cardiac defibrillator (ICD): PLAN: NSTEMI Actual chest x-ray image was independently interpreted and I agree radiologist interpretation. However patient does not have any other clinical symptoms of pneumonia such as fever or chills. White count is not remarkable and rapid Covid screen is negative. Initial troponin was 187 and repeat was 180. Review of record showed in the past patient have had has any troponin as high as 507. Emergent department the discussed the case with cardiology who recommended Nitropaste. Cardiology patient may be a candidate of heart cath. We will keep patient n.p.o. except meds. Nitroglycerin paste started emergency department and continued. Trend troponin. Hold Eliquis. Continue aspirin and Plavix. Check lipid panel. Of note patient is allergic to statin. Cardiology consult. History of pacemaker with ICD. Will interrogate pacemaker Hypertension Blood pressure is within goal in regard to his age. Patient reports that lis inopril was stopped and carvedilol was decreased and then increase. Whiles at the hospital to be a good time to trend blood pressures and appropriately adjust medication. Trend blood pressure and adjust blood pressure medications. DVT prophylaxis: SCD Charges/Coding Visit Charges Inpatient E&M: 17634 Init Hosp L3
--- NOTE | 2021-08-09 05:48 | EKG12_ITS ---
Test Reason : ADMISSION Blood Pressure : / mmHG Vent. Rate : 080 BPM Atrial Rate : 080 BPM P-R Int : 158 ms QRS Dur : 152 ms QT Int : 432 ms P-R-T Axes : 008 -28 156 degrees QTc Int : 498 ms Sinus rhythm with occasional Premature ventricular complexes Left bundle branch block Abnormal ECG When compared with ECG of 09-AUG-2021 01:03, MANUAL COMPARISON REQUIRED, DATA IS UNCONFIRMED Confirmed by ANTHONY ROCHA, ALISON ([id number]), subeditor BITA ROBB ([id number]) on 08/19/2021 1:57:50 PM Referred By: TIMMY Confirmed By:HAMZAH CRUZ MD
--- NOTE | 2021-08-09 05:51 | PCS.PANDOC ---
PANDEMIC DOCUMENTATION INITIATED: Date: 03/22/2021 Time: 190
--- NOTE | 2021-08-09 05:54 | NURSING ---
Pt received three doses of moderna covid vaccine.
[2021-08-09 07:33] LABS: Cholesterol 148 mg/dL (200); High Density Lipoprotein 41 mg/dL; Triglycerides 65 mg/dL; Troponin-I HS 186 pg/mL (3.0-78.0); Very Low Density Lipoprotein 13 mg/dL (5-40)
[2021-08-09] MEDS: Carvedilol 12.5 MG Tablet PO ×2 (08:10→20:17)
[2021-08-09] MEDS: Aspirin E.C. 81 MG Tablet PO (08:10)
[2021-08-09] MEDS: Clopidogrel Bisulfate 75 MG Tablet PO (08:10)
--- NOTE | 2021-08-09 08:59 | PCM.CONS.C ---
Assessment & Plan Assessment/Plan (1) Non-ST elevation (NSTEMI) myocardial infarction: PLAN: He did have a mild non-ST elevation myocardial infarction. He underwent a cardiac catheterization today which demonstrated following: Left main coronary artery previously stented noted be patent. Left anterior descending artery extensive stenting noted to be patent with mild to moderate in-stent stenosis. Left circumflex artery previously stented noted to be patent. Right coronary artery dominant large previously stented with mild to moderate diffuse disease. Based on the above angiographic findings there do not appear to be any areas which would warrant restenting. He will continue on the beta-suha. Ideally I would like to add a nitrate but he has not tolerated it and he also did not tolerate ranolazine. We will therefore try a low-dose amlodipine 2.5 mg a day. (2) Ischemic cardiomyopathy: PLAN: He does have a history of ischemic cardiomyopathy with an estimated ejection fraction estimated now to be 15%. The plan will be to continue him on the carvedilol. We will consider starting him on Entresto. (3) History of coronary artery stent placement: PLAN: He does have previous coronary artery stenting as noted above extensively. All his stents appear to be well patent (4) History of implantable cardiac defibrillator (ICD): PLAN: He does have a history of an implantable defibrillator. This will be interrogated. He is concerned that his defibrillator is malfunctioning but I do not think so. (5) Chronic systolic (congestive) heart failure: PLAN: He does have evidence of chronic systolic heart failure. The plan will be to continue his current medications together with diuretic. He will also be a candidate for an SGLT2 inhibitor. This can be started as an outpatient. (6) Paroxysmal atrial fibrillation: PLAN: He evidence of paroxysmal atrial fibrillation for which he remains on Eliquis. His rate is well controlled at this time. (7) Essential (primary) hypertension: PLAN: His blood pressure has been well controlled thus far. HPI Consult Data Date of Consult: 08/09/21 HPI Narrative HPI Narrative: FLEX GARCIA, is a 86 M who presents to the emergency room with complaints of chest heaviness and a feeling of syncope. As you know he is a gentleman He has a history of coronary artery disease with stenting and angioplasty to his RCA, LAD and circumflex. He also has a history of ischemic cardiomyopathy with prophylactic ICD placed. He has a rather complicated cardiac history related as follows: In 2015 he had a heart catheterization which demonstrated a long area of 95% stenosis of the distal LAD, RCA was previously stented and patent, circumflex patent. Viability demonstrated no viability in the anterior anteroseptal and apical varghese medical management was recommended. Patient had a stress test in October 2016 which demonstrated previous extensive anterior apical infarct, basal inferior infarct, inferolateral infarct with no ischemia. He had a NSTEMI in 04/2018 and underwent angioplasty and stenting of the proximal mid and distal left anterior descending artery. He had a 2.5 x 38 mm X science stent followed by 3.0 x 23 mm stent and a 2.0 x 30 mm stent. The circumflex artery was apparently left untouched. He presented again in September 2019 with shortness of breath and a non-ST elevation myocardial infarction. Cardiac catheterization demonstrated disease noted involving the proximal left circumflex artery. Left anterior descending artery was also severely diseased but had previously shown evidence of non-viability in the LAD territory. He underwent successful PCI of a 70% diffuse mid left circumflex stenosis with a 3.5 x 30 mm resolute drug-eluting gabrielle stent. There was also successful PCI of the distal left main coronary artery of approximately 70% with a 5.0 x 22 mm resolute [place] stent. In January of 2020, He underwent a heart catheterization which demonstrated triple-vessel disease, stents patent in the left main, circumflex and proximal mid RCA. Distal disease was noted in his LAD with total occlusion of mid segment and moderate disease in previously placed stents. Medical therapy was recommended. And his sotalol was discontinued because of his complaints of significant fatigue and metoprolol was added. He was also continued on his Plavix as well as his aspirin and isosorbide. He sometimes does not tolerate isosorbide because of headaches. He did not tolerate Ranexa. He presented to the hospital in November 2020 with chest discomfort and at that time was admitted and underwent a cardiac catheterization which demonstrated that his left main stent was patent, his left anterior descending artery was subtotally occluded, his left circumflex artery was patent with moderate in-stent stenosis, his right coronary artery with a previously placed stent was patent with no high-grade stenosis in the ostium of the PDA had a 40 to 50% stenosis. Medical therapy was recommended. While I was away on vacation who presented again in December 2020 with chest discomfort underwent cardiac catheterization which was essentially unchanged and medical therapy was recommended. He apparently presented to the emergency room at [facility] on April 15 with chest pain and shortness of breath and weakness was evaluated and discharged home the following day. On 04/17 he presented again to the emergency room at [email or web address] the hospital with shortness of breath was transferred to [facility]. He underwent an echocardiographic evaluation which demonstrated an ejection fraction of 15 to 20% with akinesis of the anterior wall anterior septal wall severe hypokinesis of the lateral wall and inferior wall. The apex was also noted to be akinetic. He underwent cardiac catheterization which demonstrated a left main coronary artery with a 60% stenosis, ostial LAD lesion with a 90% stenosis and a 90% in-stent stenosis, the left circumflex artery had a mid and distal segments which were patent the right coronary artery had a patent prior stent in the proximal RCA and a patent stent in the proximal RCA and a 50% proximal stenosis. The PDA had a 50% stenosis. This was apparently discussed with the cardiac surgeons but it was thought that he was too high risk. He therefore underwent staged intervention of the left anterior descending artery with a 90% stenosis in the distal LAD for which he underwent balloon angioplasty, the 90% proximal LAD had a stent placed and he also underwent balloon angioplasty of the proximal left circumflex artery. He said that he had been feeling well but then started having chest discomfort over the last 3 weeks and also had this episode of feeling like he was blacking out despite the fact that his defibrillator is functioning normally. He also says that he occasionally feels his pacemaker kick in. He is not sure whether this is normal or not. [facility] Medical History Acute blood loss anemia Anemia Arthritis Atherosclerosis of coronary artery of [place] heart with angina pectoris BPH (benign prostatic hyperplasia) Bruising Cancer Carotid artery disease Chronic systolic (congestive) heart failure Constipation DDD (degenerative disc disease) Essential (primary) hypertension GERD (gastroesophageal reflux disease) Hematuria Hiatal hernia History of non-ST elevation myocardial infarction (NSTEMI) (04/2021) HLD (hyperlipidemia) Irregular heart beat Ischemic cardiomyopathy Left bundle branch block (LBBB) Left carotid artery stenosis Male hypogonadism Non-smoker Nonsustained ventricular tachycardia 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 infarction Pacemaker Paroxysmal atrial fibrillation Polycythemia Secondary pulmonary arterial hypertension Segmental and somatic dysfunction of pelvic region Segmental and somatic dysfunction of thoracic region Shortness of breath on exertion Sinus drainage TIA (transient ischemic attack) Wears dentures Wears glasses Home Medications pantoprazole 40 mg PO DAILY 10/29/16 [History Last Taken 08/13/19] nitroglycerin 0.4 mg sublingual tablet 0.4 mg SUBLINGUAL Q5-15M PRN #25 tab 07/22/20 [Rx Last Taken Unknown] acetaminophen 325 mg PO Q6H PRN 12/10/20 [History Last Taken Unknown] aspirin 81 mg PO DAILY 12/10/20 [History Last Taken 11/30/20 08:00] clopidogrel 75 mg tablet 75 mg PO DAILY #90 tab 05/06/21 [Rx Last Taken Unknown] apixaban 5 mg tablet 5 mg PO BID #180 tab 06/03/21 [Rx Last Taken Unknown] carvedilol 12.5 mg tablet 12.5 mg PO BID 07/26/21 [History Last Taken Unknown] fluticasone propionate 2 spray INTRANASAL DAILY 08/09/21 [History Last Taken Unknown] Allergy/AdvReac Type Severity Reaction Status Date / Time hydrochlorothiazide Allergy Severe Severe Verified 08/09/21 01:04 itching rash promethazine [From Phenergan] Allergy Other Verified 08/09/21 01:04 ranolazine [From Ranexa] AdvReac Severe Rash Verified 08/09/21 01:04 omeprazole AdvReac Unknown Verified 08/09/21 01:04 Phenothiazines AdvReac Unknown Verified 08/09/21 01:04 [id number] Reductase AdvReac myalgias Verified 08/09/21 01:04 Inhibitor [Jnukdfx-Nef-Itt Reductase Inhibitor] PHENEGRANZOLE AdvReac Unknown Uncoded 08/09/21 01:04 Family History Father , Age 37 from [place] CAD (coronary artery disease) Myocardial infarction Sudden cardiac Mother , age 96 Diabetes Surgical History History of appendectomy History of cataract surgery History of coronary artery stent placement (04/19/21) History of electrophysiologic study (2009) History of hernia repair History of implantable cardiac defibrillator (ICD) (05/17/10) History of intraocular lens implant History of left heart catheterization (12/20/20) History of transurethral resection of prostate (12/16/20) Social History Smoking Status: Never smoker alcohol intake: never substance use type: does not use caffeine: Yes Type: carbonated beverages Number of servings: 1 and coffee Number of servings: 1 what type of physical activity do you participate in: none ROS Constitutional Constitutional: Denies fever(s) or weight loss Eyes Eyes: Reports systems reviewed and no addt'l complaints, except as documented ENT HEENT: Reports systems reviewed and no addt'l complaints, except as documented Cardiovascular Cardiovascular: Reports chest pain at rest and chest pain with activity; Denies dyspnea at rest, dyspnea on exertion, edema, palpitations or paroxysmal nocturnal dyspnea Respiratory/Chest Respiratory/Chest: Denies dyspnea on exertion, productive cough, shortness of breath at rest or shortness of breath with exertion Gastrointestinal Gastrointestinal: Denies change in bowel habits, nausea, vomiting or weight changes Genitourinary Genitourinary: Denies difficulty urinating Musculoskeletal Musculoskeletal: Denies joint stiffness or muscle weakness Integumentary Integumentary: Denies lesions Neurologic Neurologic: Denies dizziness or syncope Psychiatric Psychiatric: Denies anxiety Endocrine Endocrinology: Denies excessive sweating or fatigue Hematologic/Lymphatic Hematologic/Lymphatic: Denies anemia Allergic/Immunologic Allergic/Immunologic: Denies seasonal rhinorrhea Physical Exam Const alert, oriented x3 and no apparent distress General Appearance: cooperative HEENT hearing grossly normal bilaterally Head and Scalp: atraumatic Eyes EOMs intact bilaterally Neck General: normal visual inspection Chest inspection of chest normal and palpation of chest normal Resp normal respiratory effort Auscultation: clear to auscultation bilaterally Cardio regular rate, regular rhythm, S1 normal heart sound and S2 normal heart sound Jugular Venous Distention: JVD GI normal to inspection, nondistended, normoactive bowel sounds Extremity normal capillary refill and no pedal edema Peripheral Pulses: Yes pulses 2+ throughout and femoral pulses present Skin no rashes or lesions noted Neuro oriented x3 and CN's II-XII intact bilaterally Psych Appearance: grossly normal and appropriate Risk Stratification Risk Stratification Applicable: Yes Age >/= 65: Yes >/= 3 CAD Risk Factors (HTN, HLD, DM, family hx of CAD, or current smoker): Yes Aspirin Use in the Past 7 Days: Yes Severe Angina (>/= episodes in 24 hours): Yes EKG ST Changes >/= 0.5mm: No Positive Cardiac Marker: Yes BASHIR Risk Stratification Score: 5 BASHIR % Risk: 25% Risk Objective Data Vital Signs: Vital Signs Temp Pulse Resp BP Pulse Ox 97.6 F L 72 20 H 137/90 H 93 08/09/21 05:58 08/09/21 07:06 08/09/21 05:58 08/09/21 05:58 08/09/21 05:58 Oxygen Flow Rate (L/min) 2 Oxygen Delivery Method Nasal Cannula Weight: 173 lb 4.533 oz Body Mass Index (BMI) 24.8 Intake & Output: Intake and Output for Last 24 Hours 08/07/21 08/08/21 08/09/21 23:59 23:59 23:59 Intake Total 1000 / 1000 Balance 1000 / 1000 Lab / Micro Data Result Diagrams: 08/09/21 01:10 08/09/21 01:10 Labs: Laboratory Results - last 24 hr 08/09/21 01:10: WBC 7.1, RBC 3.96 L, Hgb 11.6 L, Hct 36.1 L, MCV 91.2, MCH 29.3, MCHC 32.1, RDW Std Deviation 48.4 H, RDW Coeff of Dane 14.5, Plt Count 172, MPV 13.4 H, Immature Gran % (Auto) 0.300, Neut % (Auto) 69.7, Lymph % (Auto) 16.4 L, [place] % (Auto) 8.1, Eos % (Auto) 4.5, Baso % (Auto) 1.0, Absolute Neuts (auto) 5.0, Absolute Lymphs (auto) 1.17, Nucleated RBC % 0 08/09/21 01:10: Sodium 140, Potassium 3.8, Chloride 107, Carbon Dioxide 26.0, Anion Gap 7, BUN 21 H, Creatinine 1.04, Estim Creat Clear Calc 53.62, Est GFR (MDRD) Af Amer 87, Est GFR (MDRD) Non-Af 72, BUN/Creatinine Ratio 20.2 H, Glucose 116 H, Calcium 9.3, Magnesium 2.2, Troponin I High Sens 187 H* 08/09/21 03:11: Troponin I High Sens 180 H* 08/09/21 06:40: Troponin I High Sens 186 H*, Triglycerides 65, Cholesterol 148, LDL Cholesterol 94, VLDL Cholesterol 13, HDL Cholesterol 41 Micro: Microbiology 08/09/21 03:11 Nasal Secretion SARS-CoV-2 Antigen (Rapid) - Final Cardiology Labs/Tests 08/09/21 01:10: WBC 7.1, RBC 3.96 L, Hgb 11.6 L, Hct 36.1 L, MCV 91.2, MCH 29.3, MCHC 32.1, Plt Count 172, MPV 13.4 H, Immature Gran % (Auto) 0.300, Neut % (Auto) 69.7, Lymph % (Auto) 16.4 L, [place] % (Auto) 8.1, Eos % (Auto) 4.5, Baso % (Auto) 1.0, Absolute Neuts (auto) 5.0, Nucleated RBC % 0 08/09/21 01:10: Sodium 140, Potassium 3.8, Chloride 107, Carbon Dioxide 26.0, Anion Gap 7, BUN 21 H, Creatinine 1.04, Est GFR (MDRD) Af Amer 87, Est GFR (MDRD) Non-Af 72, BUN/Creatinine Ratio 20.2 H, Glucose 116 H, Calcium 9.3, Magnesium 2.2 08/09/21 06:40: Triglycerides 65, Cholesterol 148, LDL Cholesterol 94, VLDL Cholesterol 13, HDL Cholesterol 41 Rhythm: EKG: ECHO: Stress Test: Cardiac Cath: PCI: CT Surgery: Holter monitor: EPS: PPM: CXR: Chest CT Scan: Radiography Diagnostic Testing: Radiology Impression Chest X-Ray 08/09/21 01:59 IMPRESSION: Ill-defined subpleural groundglass opacities are seen more prominent in the lung bases , may represent atypical pneumonia or viral pneumonia (COVID-19 ?). Electronically Signed: Ana Mckenzie MD at 2:56 EST Tel , Service support ,
--- NOTE | 2021-08-09 10:10 | CL.D_ITS ---
Patient Name: FLEX GARCIA Study Date: 08/09/2021 Performing: Roque Lawrence MD Ht: 70.07 inches 178 cm : 1935 Wt: 174.17 lbs 79 kg Age: 86 Gender: male BSA: 1.97 PROCEDURE(S) PERFORMED [id number])LHC/COR/LV CLINICAL PROFILE AND INDICATIONS Indications: Suspected CAD Heart Failure: NYHA Class: 3, Newly Diagnosed: No, Heart Failure Type: Systolic Stress/Imaging Stress/Image Study Performed: No CAD Presentations: Unstable angina. CONCLUSIONS Triple-vessel disease with previously stented left main, LAD, left circumflex artery, and right coron jeff artery which is noted to be patent with no high-grade areas noted. RECOMMENDATIONS Medical therapy DESCRIPTION OF PROCEDURE The patient arrived to the procedure lab. The risks and benefits of the procedure as well as a full d escription of our services here and current unavailability of surgical backup were fully explained to the patient and/or their significant other prior to the catheterization. The Timeout was completed, verifying the correct patient and procedure. The patient's procedural site was prepped and draped in the usual fashion. Local anesthetic was given subcutaneously to right radial region with Lidocaine 2% . Using a modified Seldinger technique, arterial access was obtained via the right radial artery, a 6 Fr sheath was inserted. Left Coronary Artery selective angiography was performed in multiple views u sing a 5 Fr. 4.0 [place] catheter. Right Coronary Artery selective angiography was then performed in mu ltiple views using a 5 Fr. 4.0 [place] catheter. Left Ventriculography was performed in [place] projection using a 5 Fr. [place] catheter. LV to AO pullback pressures were then recorded.The arterial sheath was pulled and a TR Band was applied for hemostasis. Sheath flushed prior to removal. CORONARY ANGIOGRAPHY DOMINANCE: Right Dominant LEFT HEART ASSESSMENT Left Ventricular Ejection Fraction: by LV Gram 15 % Inferior Mid Akinesis Depressed Left Ventricular systolic function LEFT MAIN: Left main coronary artery was previously stented and noted to be patent with no high-grade in-stent stenosis LEFT ANTERIOR DESCENDING ARTERY: Previously stented left anterior descending artery is noted to have mild to moderate in-stent stenosis of approximately 30%. Most of the diagonal branches as well as a septal nailer hand have ostial stenosis noted. Distal LAD stenosis is noted moderate. CIRCUMFLEX ARTERY: Proximal left circumflex artery stented and noted to be patent with the rest of th e vessel being free of significant disease RIGHT CORONARY ARTERY: Dominant right coronary artery previously stented in the mid and distal segmen ts noted to be patent with mild to moderate diffuse disease COMPLICATIONS No Complications PROCEDURE MEDICATIONS Fentanyl 50 mcg IV Versed 1 mg IV Oxygen: 2 L/min via nasal cannula Oxygen: 4 L/min via nasal cannula Heparin given IA 08/09/2021 09:48:31 Verapamil 2.5mg, Ntg 100mcgs, 3000 units of Heparin given IA 08/09/2021 09:48:31 SUMMARY OF HEMODYNAMIC DATA Time AIR REST ECG 09:33:53 Art 137/60 (84) 09:45:40 AO 114/64 (83) SA 09:51:14 LV 107/12, 22 09:58:50 LV 107/11, 32 09:58:56 LV 105/14, 30 09:59:41 LVp 108/15, 24 09:59:46 AOp 104/54 (73) 09:59:51 10:06:08 Signed By Roque Lawrence MD On 08/09/2021 10:09:31 AM Roque Lawrence MD
[2021-08-09] MEDS: 0.9% Normal Saline 1,000 ML 50 ML IV (12:12)
[2021-08-09] MEDS: Pantoprazole Sodium 40 MG Tablet PO (12:12)
[2021-08-09] MEDS: 0.9% Saline Lock 10 ML Syringe IV (12:15)
--- NOTE | 2021-08-09 15:45 | CASEMGMT ---
CHRISTIN ENRIQUEZ assessment: Face to face with pt for initial transition planning/care coordination assessment. CHRISTIN ENRIQUEZ introduced self and role at [facility], pt voices understanding and consents to assessment. Pt is A/Ox4 and answers questions appropriately. Pt is on 2L nc in no distress. Care providers, pharmacy, and demographics verified. Presentation: Pt c/o off/on chest pressure and some SOB Admitting dx: NSTEMI PCP: Jean Specialists: Howard, cardio Preferred Pharmacy: [facility] Insurance: MCR A/B, AARP Prescription Benefit: Yes Living Will/HPOA: Pt states has LW but is unsure about HPOA and is aware that LW is on file at [facility]. LNOK: Mary Solis, Living Arrangements: Pt lives with in 1 story home with chair lift in and states no concerns at home. Pt is independent with ADL's. Transportation: Pt drives self and states no transportation concerns. DME/HHC: Pt states has the following DME: cane, shower bench and chair lift into home. Pt states no need for any further DME. Pt states no hx of HHC or SNF. Pt states no concerns with going home at time of discharge. Pt is retired. Pt states does not smoke cigarettes or drink ETOH. Pt states no further concerns/needs. CM to follow for any further discharge planning/needs. Advised pt to ask for CM if any further questions/concerns/needs arise, voices understanding. Pt Goal: Home Plan[place] CHRISTIN ENRIQUEZ
[2021-08-09] MEDS: SACUBITRIL/VALSARTAN 24/26 MG TABLET 1 EACH PO (20:17)
[2021-08-09] MEDS: MELATONIN 3 MG TABLET PO (20:19)
[2021-08-10 02:25] VITALS: BP 91/49; PULSE 63; RESP 16; TEMP 36.6; O2SAT 94
[2021-08-10 03:00] VITALS: PULSE 73
[2021-08-10 04:19] VITALS: BP 111/63; PULSE 64; RESP 16; TEMP 36.7; O2SAT 93
[2021-08-10 06:28] LABS: Absolute Lymphocyte Count 0.94 X10^3/uL (0.83-4.51); Basophil# 0.04 X10^3/uL; Basophil% 0.8 % (0-1); Eosinophil# 0.24 X10^3/uL; Eosinophils% 5.1 % (0-5); Hematocrit 29.8 % (40-54); Hemoglobin 9.8 g/dL (13.0-16.5); Lymphocyte # 0.94 X10^3/ul (0.83-4.51); Lymphocyte % 19.8 % (19-41); Mean Corp Hgb Conc 32.9 g/dL (32-36); Mean Corpuscular Hgb 30.6 pg (27.0-32.0); Mean Corpuscular Volume 93.1 fL (80-94); Mean Platelet Vol. 13.1 fl (6.2-12.0); Monocyte# 0.51 X10^3/uL; Monocyte% 10.7 % (0-10); NRBC Flagged by Analyzer 0 % (0-5); Neutrophil # 3.01 X10^3/uL (2.7-7.7); Neutrophil % 63.4 % (47-70); Platelet Count 129 K/mm3 (150-450); RBC Distribution Width CV 14.6 % (11.6-14.6); RBC Distribution Width SD 49.7 fl (35.1-43.9); White Blood Count 4.8 K/mm3 (4.4-11.0)
[2021-08-10 06:51] LABS: Anion Gap 5 (5-15); BUN 20 mg/dL (7-18); BUN/Creat Ratio 21.5 RATIO (10-20); Calcium,Total 8.7 mg/dL (8.5-10.1); Chloride 111 mmol/L (98-107); Creatinine, Serum 0.93 mg/dL (0.70-1.30); EST Glomerular Filtration Rate 82 mL/min (>60); Est Glom Filt Rate - Afr Amer 99 mL/min (>60); Estimated Creatinine Clearance 59.96 ml/min; Glucose 88 mg/dL (74-106); Potassium 3.7 mmol/L (3.5-5.1); Sodium Level 142 mmol/L (136-145)
[2021-08-10 08:16] VITALS: BP 113/55; PULSE 60; RESP 18; TEMP 36.2; O2SAT 95
[2021-08-10] MEDS: Pantoprazole Sodium 40 MG Tablet PO (08:21)
[2021-08-10] MEDS: Clopidogrel Bisulfate 75 MG Tablet PO (08:22)
[2021-08-10] MEDS: Fluticasone 0.05% 1 SPRAY NASAL.SRY 2 SPRAY NASAL (08:22)
[2021-08-10] MEDS: Aspirin E.C. 81 MG Tablet PO (08:22)
[2021-08-10] MEDS: amLODIPine 2.5 MG Tablet PO (08:22)
[2021-08-10] MEDS: Carvedilol 12.5 MG Tablet PO (08:22)
[2021-08-10] MEDS: Furosemide 40 MG Tablet PO (08:22)
[2021-08-10] MEDS: SACUBITRIL/VALSARTAN 24/26 MG TABLET 1 EACH PO (08:22)
--- NOTE | 2021-08-10 13:28 | PCM.DC ---
Discharge Instructions Diet Discharge Diet: Low fat / Low cholesterol Activity Discharge Activity: Return to Normal Activity Dressing / Incision Call your doctor if you observe: Fever of 101 or Higher, Shortness of breath, Dizziness, Fainting spells, Swelling in the ankles, Chest pain and Increased palpitations (irregular heartbeat) Follow Up Care Test Results: Test results from this visit will be discussed in further detail at your follow-up appointment, if applicable. Discharge Plan Admission Admit Date/Time: 08/09/21 04:57 Attending Provider: Arnoldo Rizvi Primary Care Provider: Jacques Pena Chi Consulting Providers: Rqoue Lawrence Discharge Orders/Prescriptions Prescriptions: New furosemide 40 mg Tablet 40 mg PO DAILY Qty: 30 RF: 0 amlodipine 2.5 mg Tablet 2.5 mg PO DAILY Qty: 30 RF: 0 Entresto 24-26 mg Tablet 1 ea PO BID Qty: 60 RF: 0 Continued nitroglycerin 0.4 mg tablet, sublingual 0.4 mg sublingual Q5-15M PRN (Reason: chest pain) Qty: 25 RF: 3 clopidogrel [Plavix] 75 mg tablet 75 mg PO DAILY Qty: 90 RF: 3 Hold Instructions: Resume on 12/30/20. pantoprazole 40 MG tablet 40 mg PO DAILY RF: 0 aspirin 81 mg Tablet 81 mg PO DAILY RF: 0 Hold Instructions: Resume on 12/30/20. acetaminophen 325 mg Capsule 325 mg PO Q6H PRN (Reason: Pain) RF: 0 fluticasone propionate 50 mcg/actuation spray,suspension 2 spray INTRANASAL DAILY RF: 0 Eliquis 5 mg tablet 5 mg PO BID Qty: 180 RF: 3 carvedilol 12.5 mg tablet 12.5 mg PO BID RF: 0 Referrals / Follow Up: Roque Lawrence MD [STAFF PHYSICIAN] - Within 3 Months Jacques Pena Chi, MD [Primary Care Provider] - Within 1 Week Disposition Disposition (needs filled in before D/C Order can be placed): Home, Self Care
--- NOTE | 2021-08-10 13:32 | DS.PCM_ITS ---
Providers Date of Admission: 08/09/21 Primary Care Physician: Dr. Jacques Pena MD Consultations 08/09/21 05:48 Consult: Cardiology Routine Consulting Provider: Roque Lawrence Reason for Consult: NSTEMI EMERGENT Consult: No MD Notified: Yes Date Notified: 08/09/21 Time Notified: 07:36 Method of Notification: Text Reason For Visit: NSTEMI Diagnosis Discharge Diagnosis (1) Non-ST elevation (NSTEMI) myocardial infarction: Status: Acute Code(s): I21.4 - Non-ST elevation (NSTEMI) myocardial infarction (2) Ischemic cardiomyopathy: Status: Chronic Code(s): I25.5 - Ischemic cardiomyopathy (3) History of coronary artery stent placement: Status: Chronic Code(s): Z95.5 - Presence of coronary angioplasty implant and graft (4) History of implantable cardiac defibrillator (ICD): Status: Chronic Code(s): Z95.810 - Presence of automatic (implantable) cardiac defibrillator (5) Chronic systolic (congestive) heart failure: Status: Chronic Code(s): I50.22 - Chronic systolic (congestive) heart failure (6) Paroxysmal atrial fibrillation: Status: Chronic Code(s): I48.0 - Paroxysmal atrial fibrillation (7) Essential (primary) hypertension: Status: Chronic Code(s): I10 - Essential (primary) hypertension Medications at Discharge Home Medications pantoprazole 40 mg PO DAILY 10/29/16 nitroglycerin 0.4 mg sublingual tablet 0.4 mg SUBLINGUAL Q5-15M PRN #25 tab 07/07 01/24 acetaminophen 325 mg PO Q6H PRN 12/10/20 aspirin 81 mg PO DAILY 12/10/20 clopidogrel 75 mg tablet 75 mg PO DAILY #90 tab 05/06/21 apixaban 5 mg tablet 5 mg PO BID #180 tab 06/03/21 carvedilol 12.5 mg tablet 12.5 mg PO BID 07/26/21 fluticasone propionate 2 spray INTRANASAL DAILY 08/09/21 amlodipine 2.5 mg PO DAILY #30 tab 08/10/21 furosemide 40 mg PO DAILY #30 tab 08/10/21 sacubitril-valsartan [Entresto] 1 ea PO BID #60 tab 08/10/21 Hospital Course Operations None Procedures Cardiac catheterization Summary of Care Provided Minutes Spent on Discharge: 45 Hospital Course: Per HPI: FLEX GARCIA, is a 86 M with a significant history of CAD status post 11 stents with last stent placed about 6 months ago who presents at the emergency department with intermittent but progressively worsening substernal chest pain. He described the chest pain as pressure. The chest pain occasionally radiates to his left chest. The pain worsens with movement and moving his arms. The pain improves with rest. Associated with his symptom is shortness of breath and diaphoresis. Also he reports episodes of syncope without collapse. On the day of presentation patient was also worried that his blood pressure was 140/80 and his pulse was in the in the 80s. He reports a goal blood pressure of 115/50-60 and a goal pulse of 65. This finding of blood pressure and pulse made him worried and is contributory to patient coming to the emergency department. He report that in about every 5 minutes he feels his pacemaker kicking in. He correlates his breath change to his pacemaker working Hospital Course: 1. Non-STEMI/CAD status post stents/HTN/HLD/chronic systolic CHF/ICD/A. fib?86 -year-old male presented to the hospital with a history of having had 11 stents in the past. He was having some intermittent but progressively worsening substernal chest pain which she had previously in April. He is had multiple interventions and initially in April cardiology felt that we can just watch him and medically manage however he represents with chest pain again therefore cardiac catheter performed which was unremarkable. Some adjustments were made to his medications including the addition of Norvasc 2.5 mg p.o. daily as well as Lasix 40 mg p.o. daily and he was started on Entresto p.o. twice daily. He has been tolerating these medications well here in the hospital therefore will plan for discharge today with his medications. He denies having any chest pain currently and would like to go home. I did discuss with him the plan for discharge and he expressed understanding of the risk and benefits of going home. Physical Exam Const alert, oriented x3 and no apparent distress General Appearance: cooperative HEENT normocephalic and moist oral mucous membranes Eyes PERRL, EOMs intact bilaterally and conjunctivae normal Neck supple and no JVD Resp normal respiratory effort, no retractions, no use of accessory muscles and clear to auscultation bilaterally Auscultation: Negative for crackles, rales, rhonchi or wheezes Cardio regular rate, S1 normal heart sound, S2 normal heart sound and no murmurs Rhythm: abnormal rhythm GI soft to palpation, non-tender and non-distended; Negative for hepatosplenomegaly Extremity no clubbing, cyanosis or edema Skin no rashes or lesions noted Neuro no focal motor deficits and no sensory deficits noted Psych affect normal Appearance: appropriate Weight / BMI Weight Weight: 173 lb 4.533 oz Body Mass Index (BMI) 24.8 ABG / Lab / Microbiology Data Result Diagrams: 08/10/21 04:56 08/10/21 04:56 Laboratory: Laboratory Results - last 24 hr 08/10/21 04:56: WBC 4.8, RBC 3.20 L, Hgb 9.8 L, Hct 29.8 L, MCV 93.1, MCH 30.6, MCHC 32.9, RDW Std Deviation 49.7 H, RDW Coeff of Dane 14.6, Plt Count 129 L, MPV 13.1 H, Immature Gran % (Auto) 0.200, Neut % (Auto) 63.4, Lymph % (Auto) 19.8, [place] % (Auto) 10.7 H, Eos % (Auto) 5.1 H, Baso % (Auto) 0.8, Absolute Neuts (auto) 3.0, Absolute Lymphs (auto) 0.94, Nucleated RBC % 0 08/10/21 04:56: Sodium 142, Potassium 3.7, Chloride 111 H, Carbon Dioxide 26.0, Anion Gap 5, BUN 20 H, Creatinine 0.93, Estim Creat Clear Calc 59.96, Est GFR (MDRD) Af Amer 99, Est GFR (MDRD) Non-Af 82, BUN/Creatinine Ratio 21.5 H, Glucose 88, Calcium 8.7 Microbiology: Microbiology 08/09/21 03:11 Nasal Secretion SARS-CoV-2 Antigen (Rapid) - Final D/C Instructions Discharge Diet: Low fat / Low cholesterol Call your doctor if you observe: Fever of 101 or Higher, Shortness of breath, Dizziness, Fainting spells, Swelling in the ankles, Chest pain and Increased palpitations (irregular heartbeat) Meaningful Use Info Meaningful Use Diagnoses (Choose all that apply): None applicable Discharge Plan Admission Admit Date/Time: 08/09/21 04:57 Attending Provider: Arnoldo Rizvi Primary Care Provider: Jacques Pena Chi Consulting Providers: Roque Lawrence Discharge Orders/Prescriptions Prescriptions: New furosemide 40 mg Tablet 40 mg PO DAILY Qty: 30 RF: 0 amlodipine 2.5 mg Tablet 2.5 mg PO DAILY Qty: 30 RF: 0 Entresto 24-26 mg Tablet 1 ea PO BID Qty: 60 RF: 0 Continued nitroglycerin 0.4 mg tablet, sublingual 0.4 mg sublingual Q5-15M PRN (Reason: chest pain) Qty: 25 RF: 3 clopidogrel [Plavix] 75 mg tablet 75 mg PO DAILY Qty: 90 RF: 3 Hold Instructions: Resume on 12/30/20. pantoprazole 40 MG tablet 40 mg PO DAILY RF: 0 aspirin 81 mg Tablet 81 mg PO DAILY RF: 0 Hold Instructions: Resume on 12/30/20. acetaminophen 325 mg Capsule 325 mg PO Q6H PRN (Reason: Pain) RF: 0 fluticasone propionate 50 mcg/actuation spray,suspension 2 spray INTRANASAL DAILY RF: 0 Eliquis 5 mg tablet 5 mg PO BID Qty: 180 RF: 3 carvedilol 12.5 mg tablet 12.5 mg PO BID RF: 0 Referrals / Follow Up: Roque Lawrence MD [STAFF PHYSICIAN] - Within 3 Months Jacques Pena Chi, MD [Primary Care Provider] - Within 1 Week Disposition Disposition (needs filled in before D/C Order can be placed): Home, Self Care Charges/Coding Visit Charges Inpatient E&M: 76287 Disch Hosp
[2021-08-10 14:15] VITALS: BP 107/57; PULSE 72; RESP 16; TEMP 36.2; O2SAT 94
== END 2021-08-10 15:55 | disposition home or self-care (01) | DRG 281 ==
LOC: ED 05:25 → PCU 05:38
PROVIDERS: Admitting Provider Hospitalist; Emergency Provider Emergency Medicine; PCP Family Medicine Geriatric Medicine; Visit Provider Family Medicine
DX: I21.4 Non-ST elevation (NSTEMI) myocardial infarction (principal); I47.2 Ventricular tachycardia; I50.22 Chronic systolic (congestive) heart failure; I11.0 Hypertensive heart disease with heart failure; I25.2 Old myocardial infarction; I25.5 Ischemic cardiomyopathy; I27.21 Secondary pulmonary arterial hypertension; I44.7 Left bundle-branch block, unspecified; I48.0 Paroxysmal atrial fibrillation; I65.22 Occlusion and stenosis of left carotid artery; K21.9 Gastro-esophageal reflux disease without esophagitis; E11.9 Type 2 diabetes mellitus without complications; E78.5 Hyperlipidemia, unspecified; M19.90 Unspecified osteoarthritis, unspecified site; I25.10 Atherosclerotic heart disease of native coronary artery without angina pectoris; N40.0 Benign prostatic hyperplasia without lower urinary tract symptoms; M99.02 Segmental and somatic dysfunction of thoracic region; M99.05 Segmental and somatic dysfunction of pelvic region; Z86.2 Personal history of diseases of the blood and blood-forming organs and certain disorders involving the immune mechanism; Z86.73 Personal history of transient ischemic attack (TIA), and cerebral infarction without residual deficits; Z95.810 Presence of automatic (implantable) cardiac defibrillator; Z79.02 Long term (current) use of antithrombotics/antiplatelets; Z79.01 Long term (current) use of anticoagulants; Z79.82 Long term (current) use of aspirin; Z79.899 Other long term (current) drug therapy
CPT/HCPCS: 36415; 71045; 80048; 80061; 83735; 84484; 85025; 87426; 93005; 93458; 99152; 99153; 99285; J7030; A4216; C1769; C1894; Q9967

== ENCOUNTER 2021-08-18 11:15 | Outpatient (CLI) | payer MEDICARE, OTHER, SELFPAY ==
[2020-04-02 11:50] VITALS: BMI 26.2
[2021-08-18 12:44] LABS: Anion Gap 6 (5-15); BUN 24 mg/dL (7-18); BUN/Creat Ratio 22.2 RATIO (10-20); Calcium,Total 9.2 mg/dL (8.5-10.1); Chloride 105 mmol/L (98-107); Creatinine, Serum 1.08 mg/dL (0.70-1.30); EST Glomerular Filtration Rate 69 mL/min (>60); Est Glom Filt Rate - Afr Amer 84 mL/min (>60); Glucose 128 mg/dL (74-106); Potassium 4.2 mmol/L (3.5-5.1); Sodium Level 140 mmol/L (136-145)
== END 2021-08-18 23:59 | disposition short-term general hospital (02) ==
LOC: POLAB3 11:16
PROVIDERS: PCP Family Medicine Geriatric Medicine; Visit Provider Family Medicine Geriatric Medicine
DX: I10 Essential (primary) hypertension (principal)
CPT/HCPCS: 36415; 80048

== ENCOUNTER 2021-10-02 09:40 | Outpatient (CLI) | payer MEDICARE, OTHER, SELFPAY ==
[2020-04-02 11:50] VITALS: BMI 26.2
[2021-10-02 10:33] LABS: Hematocrit 35.1 % (40-54); Hemoglobin 11.7 g/dL (13.0-16.5); Mean Corp Hgb Conc 33.3 g/dL (32-36); Mean Corpuscular Hgb 30.7 pg (27.0-32.0); Mean Corpuscular Volume 92.1 fL (80-94); Mean Platelet Vol. 13.3 fl (6.2-12.0); Platelet Count 141 K/mm3 (150-450); RBC Distribution Width CV 14.4 % (11.6-14.6); RBC Distribution Width SD 48.2 fl (35.1-43.9); Red Blood Count 3.81 M/mm3 (4.6-6.2); White Blood Count 6.2 K/mm3 (4.4-11.0)
== END 2021-10-02 23:59 | disposition home or self-care (01) ==
LOC: LAB 09:43
PROVIDERS: PCP Family Medicine Geriatric Medicine; Referring Provider Nurse Practitioner Family; Visit Provider Nurse Practitioner Family
DX: D64.9 Anemia, unspecified (principal)
CPT/HCPCS: 36415; 85027

== ENCOUNTER 2021-10-25 10:21 | Outpatient (CLI) | payer MEDICARE, OTHER, SELFPAY ==
[2020-04-02 11:50] VITALS: BMI 26.2
[2021-10-25 11:40] LABS: Absolute Lymphocyte Count 1.86 X10^3/uL (0.83-4.51); Absolute Neutrophil Count 4.6 X10^3/uL (2.0-7.7); Basophil# 0.03 X10^3/uL; Basophil% 0.4 % (0-1); Eosinophil# 0.16 X10^3/uL; Eosinophils% 2.2 % (0-5); Hematocrit 38.5 % (40-54); Hemoglobin 12.7 g/dL (13.0-16.5); Lymphocyte # 1.86 X10^3/ul (0.83-4.51); Lymphocyte % 25.6 % (19-41); Mean Corpuscular Hgb 30.3 pg (27.0-32.0); Mean Corpuscular Volume 91.9 fL (80-94); Mean Platelet Vol. 13.2 fl (6.2-12.0); Monocyte# 0.54 X10^3/uL; Monocyte% 7.4 % (0-10); NRBC Flagged by Analyzer 0 % (0-5); Neutrophil % 63.4 % (47-70); Platelet Count 202 K/mm3 (150-450); RBC Distribution Width CV 15.1 % (11.6-14.6); Red Blood Count 4.19 M/mm3 (4.6-6.2); White Blood Count 7.3 K/mm3 (4.4-11.0)
[2021-10-25 11:58] LABS: Vitamin D,25 Hydroxy 30.9 ng/mL
[2021-10-25 12:08] LABS: ALB/GLOB Ratio 1.1 RATIO (0.9-2.4); AST(SGOT) 12 U/L (15-37); Alanine Aminotransfer ALT/SGPT 21 U/L (16-61); Albumin, Serum 3.7 g/dL (3.2-5.0); Alkaline Phosphatase 72 U/L (45-117); Anion Gap 4 (5-15); BUN 28 mg/dL (7-18); BUN/Creat Ratio 23.1 RATIO (10-20); Calcium,Total 8.7 mg/dL (8.5-10.1); Chloride 105 mmol/L (98-107); Creatinine, Serum 1.21 mg/dL (0.70-1.30); EST Glomerular Filtration Rate 61 mL/min (>60); Est Glom Filt Rate - Afr Amer 73 mL/min (>60); Globulin 3.3 g/dL (2.2-4.2); Glucose 121 mg/dL (74-106); Potassium 3.5 mmol/L (3.5-5.1); Sodium Level 140 mmol/L (136-145); Thyroid Stim Hormone (TSH) 1.48 uIU/mL (0.358-3.74)
== END 2021-10-25 23:59 | disposition home or self-care (01) ==
LOC: POLAB3 10:23
PROVIDERS: PCP Family Medicine Geriatric Medicine; Visit Provider Family Medicine Geriatric Medicine
DX: E23.6 Other disorders of pituitary gland (principal); E55.9 Vitamin D deficiency, unspecified; I10 Essential (primary) hypertension
CPT/HCPCS: 36415; 80053; 82306; 84403; 84443; 85025

== ENCOUNTER 2021-12-25 22:36 | Inpatient (IN) | payer MEDICARE, OTHER, SELFPAY ==
[2020-04-02 11:50] VITALS: BMI 26.2
[2021-12-25 22:37] VITALS: BP 164/101; PULSE 119; RESP 14; TEMP 35.6; O2SAT 89; BMI 23.6
[2021-12-25 23:06] VITALS: BP 154/101; PULSE 109; RESP 29; O2SAT 93
--- NOTE | 2021-12-25 23:28 | EKG12_ITS ---
Test Reason : CHEST TIGHTNESS Blood Pressure : / mmHG Vent. Rate : 112 BPM Atrial Rate : 112 BPM P-R Int : 156 ms QRS Dur : 156 ms QT Int : 372 ms P-R-T Axes : 018 -35 123 degrees QTc Int : 507 ms Sinus tachycardia Left axis deviation Left bundle branch block Abnormal ECG Confirmed by JENNIFER ROCHA, JESSE ([id number]), photography editor KRISTI LEIJA ([id number]) on 12/27/2021 11:39:39 AM Referred By: FREDDY Confirmed By:JESSE RODRIGUEZ MD
--- NOTE | 2021-12-25 23:28 | ED.VIS.CHEST ---
HPI History of Present Illness Chief Complaint: Chest Pain Narrative Narrative: 2 days of dyspnea with exertion and chest tightness and pressure nonpleuritic substernal without radiation. Worse when he exerts himself even just a little, now having symptoms at rest. Chest discomfort has been constant, does not as bad when he is resting. No more edema in his legs than usual. 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 He then went across to his PCP and received some injections as well as prednisone for some back and joint pains. He states he has Lasix but he only takes it as needed and has not had it in about 3 weeks, he was advised that he looks dehydrated yesterday and not to take it. He denies any coughing. He has had intermittent sweats for longer than this but in the last 2 days the sweats are worse when they occur. [facility] Medical History Acute blood loss anemia Anemia Arthritis Atherosclerosis of coronary artery of [place] heart with angina pectoris BPH (benign prostatic hyperplasia) Bruising Cancer Carotid artery disease Chronic systolic (congestive) heart failure Constipation DDD (degenerative disc disease) Essential (primary) hypertension GERD (gastroesophageal reflux disease) Hematuria Hiatal hernia History of non-ST elevation myocardial infarction (NSTEMI) (04/2021) HLD (hyperlipidemia) Irregular heart beat Ischemic cardiomyopathy Left bundle branch block (LBBB) Left carotid artery stenosis Male hypogonadism Non-smoker Nonsustained ventricular tachycardia 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 infarction Pacemaker Paroxysmal atrial fibrillation Polycythemia Secondary pulmonary arterial hypertension Segmental and somatic dysfunction of pelvic region Segmental and somatic dysfunction of thoracic region Shortness of breath on exertion Sinus drainage TIA (transient ischemic attack) Wears dentures Wears glasses Home Medications pantoprazole 40 mg PO DAILY 10/29/16 [History Last Taken 08/13/19] nitroglycerin 0.4 mg sublingual tablet 0.4 mg SUBLINGUAL Q5-15M PRN #25 tab 07/22/20 [Rx Last Taken Unknown] acetaminophen 325 mg PO Q6H PRN 12/10/20 [History Last Taken Unknown] clopidogrel 75 mg tablet 75 mg PO DAILY #90 tab 05/06/21 [Rx Last Taken Unknown] fluticasone propionate 2 spray INTRANASAL DAILY 08/09/21 [History Last Taken Unknown] furosemide 40 mg tablet 40 mg PO .PRN #30 tab 08/13/21 [Rx Last Taken Unknown] sacubitril 24 mg-valsartan 26 mg tablet 1 tab PO BID #60 tab 09/14/21 [Rx Last Taken Unknown] rivaroxaban 20 mg tablet 20 mg PO QPM #30 tab 10/21/21 [Rx Last Taken Unknown] carvedilol 6.25 mg tablet 6.25 mg PO .COMPLEX #90 tab 12/24/21 [Rx Last Taken Unknown] doxycycline hyclate 100 mg PO BID 12/25/21 [History Last Taken Unknown] prednisone 12/25/21 [History Last Taken Unknown] Allergy/AdvReac Type Severity Reaction Status Date / Time hydrochlorothiazide Allergy Severe Severe Verified 12/25/21 22:37 itching rash promethazine [From Phenergan] Allergy Other Verified 12/25/21 22:37 apixaban [From Eliquis] AdvReac Severe All over Verified 12/25/21 22:37 itching and rash ranolazine [From Ranexa] AdvReac Severe Rash Verified 12/25/21 22:37 omeprazole AdvReac Unknown Verified 12/25/21 22:37 Phenothiazines AdvReac Unknown Verified 12/25/21 22:37 Jyrcbgt-YHG-FcM Reductase AdvReac myalgias Verified 12/25/21 22:37 Inhibitor [Crqmjwf-Nzh-Wvg Reductase Inhibitor] PHENEGRANZOLE AdvReac Unknown Uncoded 12/25/21 22:37 Family History Father , Age 37 from [place] CAD (coronary artery disease) Myocardial infarction Sudden cardiac Mother , age 96 Diabetes Surgical History History of appendectomy History of cataract surgery History of coronary artery stent placement (04/19/21) History of electrophysiologic study (2009) History of hernia repair History of implantable cardiac defibrillator (ICD) (05/17/10) History of intraocular lens implant History of left heart catheterization (08/09/21) History of transurethral resection of prostate (12/16/20) Social History Smoking Status: Never smoker alcohol intake: never substance use type: does not use caffeine: Yes Type: carbonated beverages Number of servings: 1 and coffee Number of servings: 1 what type of physical activity do you participate in: none ROS ROS ED Constitutional Constitutional ED: Denies chills or fever(s) Eyes Eyes: Denies change in vision or diplopia ENT ENT ED: Denies rhinorrhea or sore throat Cardiovascular Cardiovascular: Reports chest pain, orthopnea and pedal edema; Denies palpitations Respiratory/Chest Respiratory/Chest: Reports dyspnea, dyspnea on exertion and orthopnea; Denies cough Gastrointestinal Gastrointestinal: Reports constipation; Denies abdominal pain, diarrhea, nausea or vomiting Genitourinary Genitourinary ED: Denies dysuria or hematuria Musculoskeletal Musculoskeletal: Reports back pain and joint pain; Denies neck pain Integumentary Denies abscess or rash Neurologic Neurologic: Denies headache(s), paresthesias or weakness Psychiatric Psychiatric: Denies anxiety or suicidal thoughts EXAM Physical Exam Const Vital Signs: 12/25/21 22:37 12/25/21 23:02 12/25/21 23:06 Temperature 96.1 F L Temperature Source Temporal Pulse Rate 119 H 109 H Respiratory Rate 14 29 H Respiratory Effort Short of Breath Blood Pressure 164/101 H 154/101 H Blood Pressure Mean 122 118 Pulse Ox 89 93 Oxygen Delivery Method Room Air Nasal Cannula Oxygen Flow Rate (L/min) 5 12/25/21 23:39 12/25/21 23:40 12/25/21 23:52 Temperature Temperature Source Pulse Rate 108 H 104 H Respiratory Rate Respiratory Effort Blood Pressure 156/97 H 147/95 H Blood Pressure Mean Pulse Ox Oxygen Delivery Method Nasal Cannula Oxygen Flow Rate (L/min) 5 12/26/21 00:20 Temperature Temperature Source Pulse Rate Respiratory Rate Respiratory Effort Blood Pressure Blood Pressure Mean Pulse Ox 97 Oxygen Delivery Method Nasal Cannula Oxygen Flow Rate (L/min) 3 Positive well nourished and well developed General Appearance ED: well developed and NAD HEENT Reports moist mucous membranes normocephalic and atraumatic Eyes PERRL and EOMs intact bilaterally Neck full ROM and supple Resp Resp Narrative: No respiratory distress, slightly tachypneic. Bibasilar crackles and rhonchi, worse on the right Cardio regular rate, regular rhythm and no murmurs Jugular Venous Distention: JVD GI non-tender and non-distended Auscultation: normoactive bowel sounds Palpation: soft Back/Spine no CVA tenderness General Back: other FROM Extremity normal to inspection General Extremety ED: Yes edema; Negative for pulses abnormal or tenderness General Extremity: edema bilateral lower extremity Details: mild; Negative for pulses abnormal Neuro oriented x3, CN's II-XII intact bilaterally and no sensory deficits noted Sensorium / Orientation: awake and alert Motor Exam: strength 5/5 throughout Skin no rashes or lesions noted and no wounds Heart Score History: Highly Suspicious ECG: Nonspecific Repolarization Age: >/= 65 years Risk Factors: >/= 3 Risk Factors or History of CAD Troponin: >/=3 x Normal Limit Score: 9 MDM MDM MDM Narrative Medical decision making narrative: Patient mildly hypoxic and put on oxygen here which helped, given nitro and after we started seeing the work-up showing congestive heart failure consistent with his history and exam, he was given Lasix. Creatinine is good. Chest x-ray 1 view on my interpretation showing congestive heart failure. Radiologist says mild bilateral pneumonitis, based on history I do not think this is infectious. His BNP is 1685 and his troponin is 1081. Unchanged EKG morphology. Chest is feeling better after medications. Will admit for further treatment. Lab Data Attestation: I reviewed the patient's lab results. Labs: Laboratory Results - last 24 hr 12/25/21 12/25/21 12/25/21 23:05 23:05 23:05 WBC 10.2 RBC 4.14 L Hgb 12.8 L Hct 38.6 L MCV 93.2 MCH 30.9 MCHC 33.2 RDW Std Deviation 51.4 H RDW Coeff of Dane 15.1 H Plt Count 198 MPV 13.6 H Immature Gran % (Auto) 0.500 Neut % (Auto) 91.7 H Lymph % (Auto) 5.6 L [place] % (Auto) 2.0 Eos % (Auto) 0.0 Baso % (Auto) 0.2 Absolute Neuts (auto) 9.4 H Absolute Lymphs (auto) 0.57 L Nucleated RBC % 0 Differential Comment SCANNED Sodium 137 Potassium 4.6 Chloride 105 Carbon Dioxide 26.0 Anion Gap 6 BUN 29 H Creatinine 1.29 Estim Creat Clear Calc 43.23 Est GFR (MDRD) Af Amer 68 Est GFR (MDRD) Non-Af 56 L BUN/Creatinine Ratio 22.5 H Glucose 179 H Calcium 9.7 Troponin I High Sens 1081 H* B-Natriuretic Peptide 1685.6 H Radiography Diagnostic Testing: Clinical Impression(s) from Imaging Studies Chest X-Ray 12/25/21 23:33 IMPRESSION: 1. Mild interstitial change in the right upper lobe and left lower lobe that were not present previously on 08/09/2021, and are felt to represent a mild bilateral pneumonitis. 2. Borderline cardiomegaly without heart failure. 3. Dual-lead pacemaker with distal leads relatively unchanged in position since the previous study of 08/09/2021. 4. No other active cardiopulmonary disease. 5. Air-filled hepatic flexure of the colon beneath the right hemidiaphragm. 6. Mild demineralization. Electronically Signed: Sean Lennon MD at 0:12 EDT , EKG Initial EKG: Attestation: I personally reviewed and interpreted this EKG as follows: Interpretation: No Acute Injury Pattern, Sinus Tachycardia and LBBB Prior EKG tracings: available for review Prior: Unchanged Discharge Plan Triage Chief Complaint: Chest Pain ED Provider: John Cook Dx/Rx/DC Orders Clinical Impression: Acute exacerbation of CHF (congestive heart failure), Chest pain, Hypoxemia, Elevated troponin Primary Care Provider: Jacques Pena Chi Disposition Disposition: Acute Care [facility]
--- NOTE | 2021-12-25 23:33 | RAD_ITS ---
STUDY: AP PORTABLE UPRIGHT CHEST X-RAY OF 2334 HOURS ON 12/25/2021 REASON FOR EXAM: 86-year-old male with chest pain. TECHNIQUE: A single view AP portable upright chest x-ray was performed per protocol. COMPARISON: 08/09/2021. FINDINGS: Mild demineralization. Borderline cardiomegaly without heart failure. 2-lead pacemaker with distal leads relatively unchanged in position since the previous study of 08/09/2021. There is mild interstitial infiltration in the right upper lobe and left lower lobe that was not present on the previous study of 08/09/2021. This may represent a bilateral interstitial pneumonitis. There is air-filled hepatic flexure of the colon beneath the right hemidiaphragm. RAD/Chest 1 View (Portable) IMPRESSION: 1. Mild interstitial change in the right upper lobe and left lower lobe that were not present previously on 08/09/2021, and are felt to represent a mild bilateral pneumonitis. 2. Borderline cardiomegaly without heart failure. 3. Dual-lead pacemaker with distal leads relatively unchanged in position since the previous study of 08/09/2021. 4. No other active cardiopulmonary disease. 5. Air-filled hepatic flexure of the colon beneath the right hemidiaphragm. 6. Mild demineralization. Electronically Signed: Sean Lennon MD at 0:12 EDT ,
[2021-12-25 23:40] VITALS: BP 156/97; PULSE 108
[2021-12-25] MEDS: Nitroglycerin SL (ED/IMG/CATH) 0.4 MG TABLET SL ×2 (23:40→23:52)
[2021-12-25 23:41] LABS: Absolute Lymphocyte Count 0.57 X10^3/uL (0.83-4.51); Absolute Neutrophil Count 9.4 X10^3/uL (2.0-7.7); Basophil# 0.02 X10^3/uL; Basophil% 0.2 % (0-1); Hematocrit 38.6 % (40-54); Hemoglobin 12.8 g/dL (13.0-16.5); Lymphocyte # 0.57 X10^3/ul (0.83-4.51); Lymphocyte % 5.6 % (19-41); Mean Corp Hgb Conc 33.2 g/dL (32-36); Mean Corpuscular Hgb 30.9 pg (27.0-32.0); Mean Corpuscular Volume 93.2 fL (80-94); Mean Platelet Vol. 13.6 fl (6.2-12.0); NRBC Flagged by Analyzer 0 % (0-5); Neutrophil % 91.7 % (47-70); POSITIVE DIFFERENTIAL YES; Platelet Count 198 K/mm3 (150-450); RBC Distribution Width CV 15.1 % (11.6-14.6); RBC Distribution Width SD 51.4 fl (35.1-43.9); Red Blood Count 4.14 M/mm3 (4.6-6.2); White Blood Count 10.2 K/mm3 (4.4-11.0)
[2021-12-25 23:52] VITALS: BP 147/95; PULSE 104
[2021-12-26] VITALS (14 sets, daily range): BP systolic 107–147; BP diastolic 60–100; PULSE 72–102; RESP 14–20; TEMP 36.2–36.9; O2SAT 96–99; BMI 24.6
[2021-12-26 00:01] LABS: Anion Gap 6 (5-15); BUN 29 mg/dL (7-18); BUN/Creat Ratio 22.5 RATIO (10-20); Calcium,Total 9.7 mg/dL (8.5-10.1); Chloride 105 mmol/L (98-107); Creatinine, Serum 1.29 mg/dL (0.70-1.30); EST Glomerular Filtration Rate 56 mL/min (>60); Est Glom Filt Rate - Afr Amer 68 mL/min (>60); Estimated Creatinine Clearance 43.23 ml/min; Glucose 179 mg/dL (74-106); Potassium 4.6 mmol/L (3.5-5.1); Sodium Level 137 mmol/L (136-145); Troponin-I HS (w/2H Reflex) 1081 pg/mL (3.0-78.0)
[2021-12-26 00:13] LABS: BNP,B-Type NATRIURETIC PEPTIDE 1685.6 pg/mL (0-100)
[2021-12-26 00:25] LABS: Differential Indicated SCAN CRITERIA MET
[2021-12-26 00:26] LABS: Differential Comment SCANNED
--- NOTE | 2021-12-26 01:04 | HP.PCM.HOS_ITS ---
HPI - General General Date of Admission: 12/26/21 Date of Service: 12/26/21 Chief Complaint: Shortness of breath, chest tightness HPI Narrative FLEX GARCIA, is a 86 M who presents to the emergency room at [facility] for evaluation of chest tightness and shortness of breath which has been increasing over the last 2 days. Patient has a history of chronic ischemic cardiomyopathy, his last cardiac catheterization was in August of this year, it showed patent stents at that time and an ejection fraction of 15%. Patient marlene barrera has an ICD inserted, he is on medication for chronic systolic congestive heart failure. Patient has not been taking a diuretic on a daily basis- cardiology notes that were placed in the chart in December of this year indicated that the patient was to only take the Lasix as needed due to hypotension. Work-up in the emergency room included a chest x-ray which showed evidence of congestive heart failure, patient required nasal cannula oxygen at 3 L to maintain his pulse ox above 90%, labs obtained included a CBC which was remarkable for a hemoglobin of 12.8, chemistry profile was remarkable for BUN of 29 and a glucose of 179. Patient's troponin was elevated at 1081. Patient's beta natruretic peptide was elevated at 1685. EKG showed a left bundle branch block and sinus tachycardia at 112 Patient was given IV Lasix in the emergency room, I had a long discussion with the patient and his concerning his CODE STATUS-after much discussion, patient has decided that his CODE STATUS would be a DNR CC arrest without intubation. Patient will be admitted to PCU for acute on chronic systolic congestive heart failure with elevated troponin-I am not sure of the significance of his troponin-patient had undergone a cardiac catheterization last in August of this year and his stents were patent at that time. Patient will be admitted to PCU for acute on chronic systolic congestive heart failure, he will be given IV Lasix, enzymes will be cycled, I am not sure that the patient will be a candidate to have any further testing such as a repeat heart catheterization, I will have cardiology see the patient in consultation today. [facility] [place] Medical History (Updated 12/26/21 @ 01:[address] Gary Davila, ) Acute blood loss anemia Anemia Arthritis Atherosclerosis of coronary artery of [place] heart with angina pectoris BPH (benign prostatic hyperplasia) Bruising Cancer Carotid artery disease Chronic systolic (congestive) heart failure Constipation DDD (degenerative disc disease) Essential (primary) hypertension GERD (gastroesophageal reflux disease) Hematuria Hiatal hernia History of non-ST elevation myocardial infarction (NSTEMI) (04/2021) HLD (hyperlipidemia) Irregular heart beat Ischemic cardiomyopathy Left bundle branch block (LBBB) Left carotid artery stenosis Male hypogonadism Non-smoker Nonsustained ventricular tachycardia 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 infarction Pacemaker Paroxysmal atrial fibrillation Polycythemia Secondary pulmonary arterial hypertension Segmental and somatic dysfunction of pelvic region Segmental and somatic dysfunction of thoracic region Shortness of breath on exertion Sinus drainage TIA (transient ischemic attack) Wears dentures Wears glasses Home Medications pantoprazole 40 mg PO DAILY 10/29/16 [History Last Taken 08/13/19] nitroglycerin 0.4 mg sublingual tablet 0.4 mg SUBLINGUAL Q5-15M PRN #25 tab 07/22/20 [Rx Last Taken Unknown] acetaminophen 325 mg PO Q6H PRN 12/10/20 [History Last Taken Unknown] clopidogrel 75 mg tablet 75 mg PO DAILY #90 tab 05/06/21 [Rx Last Taken Unknown] fluticasone propionate 2 spray INTRANASAL DAILY 08/09/21 [History Last Taken Unknown] furosemide 40 mg tablet 40 mg PO .PRN #30 tab 08/13/21 [Rx Last Taken Unknown] sacubitril 24 mg-valsartan 26 mg tablet 1 tab PO BID #60 tab 09/14/21 [Rx Last Taken Unknown] rivaroxaban 20 mg tablet 20 mg PO QPM #30 tab 10/21/21 [Rx Last Taken Unknown] carvedilol 6.25 mg tablet 6.25 mg PO .COMPLEX #90 tab 12/24/21 [Rx Last Taken Unknown] doxycycline hyclate 100 mg PO BID 12/25/21 [History Last Taken Unknown] prednisone 12/25/21 [History Last Taken Unknown] Allergy/AdvReac Type Severity Reaction Status Date / Time hydrochlorothiazide Allergy Severe Severe Verified 12/25/21 22:37 itching rash promethazine [From Phenergan] Allergy Other Verified 12/25/21 22:37 apixaban [From Eliquis] AdvReac Severe All over Verified 12/25/21 22:37 itching and rash ranolazine [From Ranexa] AdvReac Severe Rash Verified 12/25/21 22:37 omeprazole AdvReac Unknown Verified 12/25/21 22:37 Phenothiazines AdvReac Unknown Verified 12/25/21 22:37 [id number] Reductase AdvReac myalgias Verified 12/25/21 22:37 Inhibitor PHENEGRANZOLE AdvReac Unknown Uncoded 12/25/21 22:37 Family History Father , Age 37 from [place] CAD (coronary artery disease) Myocardial infarction Sudden cardiac Mother , age 96 Diabetes Surgical History History of appendectomy History of cataract surgery History of coronary artery stent placement (04/19/21) History of electrophysiologic study (2009) History of hernia repair History of implantable cardiac defibrillator (ICD) (05/17/10) History of intraocular lens implant History of left heart catheterization (08/09/21) History of transurethral resection of prostate (12/16/20) Social History Smoking Status: Never smoker alcohol intake: never substance use type: does not use caffeine: Yes Type: carbonated beverages Number of servings: 1 and coffee Number of servings: 1 what type of physical activity do you participate in: none ROS Constitutional Constitutional: Reports fatigue and weakness; Denies anorexia, change in weight, fever(s) or night sweats Eyes Eyes: Denies blurry vision, change in eye color, change in vision, discharge from eye(s), double vision or eye pain ENT HEENT: Denies dysphagia, ear pain, epistaxis or headache(s) Cardiovascular Cardiovascular: Reports chest pain and dyspnea on exertion; Denies claudication, edema or palpitations Respiratory/Chest Respiratory/Chest: Reports dyspnea, shortness of breath at rest and shortness of breath with exertion; Denies cough, excessive phlegm production, hemoptysis or productive cough Gastrointestinal Gastrointestinal: Denies abdominal pain, coffee ground emesis, constipation, diarrhea, dyspepsia, hematemesis, hematochezia, melena, nausea or vomiting Genitourinary Genitourinary: Denies dysuria, hematuria, urinary frequency, urinary hesitancy, urinary incontinence or urinary urgency Musculoskeletal Musculoskeletal: Denies back pain, joint pain, joint stiffness, joint swelling, myalgias or neck pain Neurologic Neurologic: Denies abnormal gait, abnormal speech, dizziness, focal weakness, headache(s), loss of vision, numbness, other visual disturbances, paresthesias, syncope or tingling Psychiatric Psychiatric: Denies anxiety, cognitive impairment, depression, irritability, mood swings or suicidal ideation Endocrine Endocrinology: Reports excessive sweating; Denies change in body appearance, cold intolerance, heat intolerance, polydipsia or polyuria Hematologic/Lymphatic Hematologic/Lymphatic: Denies none, anemia, easy bleeding, easy bruising or lymphadenopathy Allergic/Immunologic Allergic/Immunologic: Denies rhinitis, urticaria, eczemia or asthma Vital Signs Vital Signs Vital Signs: 12/25/21 22:37 12/25/21 23:02 12/25/21 23:06 Temperature 96.1 F L Temperature Source Temporal Pulse Rate 119 H 109 H Respiratory Rate 14 29 H Respiratory Effort Short of Breath Blood Pressure 164/101 H 154/101 H Blood Pressure Mean 122 118 Pulse Ox 89 93 Oxygen Delivery Method Room Air Nasal Cannula Oxygen Flow Rate (L/min) 5 12/25/21 23:39 12/25/21 23:40 12/25/21 23:52 Temperature Temperature Source Pulse Rate 108 H 104 H Respiratory Rate Respiratory Effort Blood Pressure 156/97 H 147/95 H Blood Pressure Mean Pulse Ox Oxygen Delivery Method Nasal Cannula Oxygen Flow Rate (L/min) 5 12/26/21 00:20 Temperature Temperature Source Pulse Rate Respiratory Rate Respiratory Effort Blood Pressure Blood Pressure Mean Pulse Ox 97 Oxygen Delivery Method Nasal Cannula Oxygen Flow Rate (L/min) 3 Weight Weight: 74.843 kg Body Mass Index (BMI) 23.6 Physical Exam Const alert, oriented x3, no apparent distress and average body habitus Constitutional Narrative: Patient appears stated age General Appearance: cooperative, well kempt and well developed Orientation / Consciousness: awake, oriented to person, oriented to place and oriented to time HEENT normocephalic and moist oral mucous membranes; Negative for head/scalp atraumatic or hearing grossly normal bilaterally Eyes PERRL, EOMs intact bilaterally and conjunctivae normal Neck nuchal rigidity, supple, no JVD, thyroid normal and no carotid bruits General: trachea midline Resp normal respiratory effort, no retractions, no use of accessory muscles and clear to auscultation bilaterally Auscultation: crackles bilateral and diffuse; Negative for rales, rhonchi or wheezes Cardio regular rate, regular rhythm, S1 normal heart sound, S2 normal heart sound, no murmurs, no rub and no gallops GI normal to inspection, nondistended, normoactive bowel sounds, soft to palpation, non-tender and non-distended Extremity normal to inspection and no clubbing, cyanosis or edema Skin no rashes or lesions noted General Skin Exam: no breakdown Neuro oriented x3, CN's II-XII intact bilaterally, no focal motor deficits and no sensory deficits noted Sensorium / Orientation: awake and alert Speech: speech normal Psych affect normal Results Lab / Micro Data Result Diagrams: 12/25/21 23:05 12/25/21 23:05 Labs: Laboratory Results - last 24 hr 12/25/21 23:05: WBC 10.2, RBC 4.14 L, Hgb 12.8 L, Hct 38.6 L, MCV 93.2, MCH 30.9, MCHC 33.2, RDW Std Deviation 51.4 H, RDW Coeff of Dane 15.1 H, Plt Count 198, MPV 13.6 H, Immature Gran % (Auto) 0.500, Neut % (Auto) 91.7 H, Lymph % (Auto) 5.6 L, [place] % (Auto) 2.0, Eos % (Auto) 0.0, Baso % (Auto) 0.2, Absolute Neuts (auto) 9.4 H, Absolute Lymphs (auto) 0.57 L, Nucleated RBC % 0, Differential Comment SCANNED 12/25/21 23:05: Sodium 137, Potassium 4.6, Chloride 105, Carbon Dioxide 26.0, Anion Gap 6, BUN 29 H, Creatinine 1.29, Estim Creat Clear Calc 43.23, Est GFR (MDRD) Af Amer 68, Est GFR (MDRD) Non-Af 56 L, BUN/Creatinine Ratio 22.5 H, Glucose 179 H, Calcium 9.7, Troponin I High Sens 1081 H* 12/25/21 23:05: B-Natriuretic Peptide 1685.6 H Radiology Impression Chest X-Ray 12/25/21 23:33 IMPRESSION: 1. Mild interstitial change in the right upper lobe and left lower lobe that were not present previously on 08/09/2021, and are felt to represent a mild bilateral pneumonitis. 2. Borderline cardiomegaly without heart failure. 3. Dual-lead pacemaker with distal leads relatively unchanged in position since the previous study of 08/09/2021. 4. No other active cardiopulmonary disease. 5. Air-filled hepatic flexure of the colon beneath the right hemidiaphragm. 6. Mild demineralization. Electronically Signed: Sean Lennon MD at 0:12 EDT , Assessment & Plan Assessment/Plan (1) Ischemic cardiomyopathy: PLAN: 1. Acute on chronic systolic congestive heart failure-patient will be admitted to PCU, he will be placed on IV Lasix, blood pressure will be monitored, he will be continued on his home medications, patient will be seen in consultation by cardiology. #2 hypoxia secondary to #1-patient's pulse ox will be monitored, supplemental oxygen will be used as needed #3 elevated troponin-etiology unclear at this point, I am not sure if the patient has had a type II non-STEMI, cardiology will see the patient in consultation. #4 ischemic cardiomyopathy-patient's last EF was 15%, he is on medications for this, patient also has an ICD inserted. #5 paroxysmal atrial fibrillation-patient is currently on Xarelto and rate limiting medications #6 recent sinus infection per family physician-patient is currently on doxycyc line, this will be continued #6 hyperglycemia-patient had a recent injection of corticosteroids by his family physician and may have been placed on prednisone, I will not continue the prednisone during his hospital stay Again, patient is a DNR CC arrest without intubation-I discussed this thoroughly with the patient and his who was in the room at the time my examination. Charges/Coding Visit Charges Inpatient E&M: 08722 Init Hosp L3
[2021-12-26] MEDS: Furosemide 40 MG/4 ML Vial IV ×2 (01:20→06:43)
[2021-12-26 01:36] LABS: Reflex Troponin-HS? (from REC) Y
--- NOTE | 2021-12-26 02:14 | EKG12_ITS ---
Test Reason : CP ADM EKG Blood Pressure : / mmHG Vent. Rate : 091 BPM Atrial Rate : 091 BPM P-R Int : 162 ms QRS Dur : 152 ms QT Int : 402 ms P-R-T Axes : 012 -30 133 degrees QTc Int : 494 ms Sinus rhythm with occasional Premature ventricular complexes Left axis deviation Left bundle branch block Abnormal ECG When compared with ECG of 25-DEC-2021 22:50, MANUAL COMPARISON REQUIRED, DATA IS UNCONFIRMED Confirmed by JENNIFER ROCHA, JESSE ([id number]), editor & co founder BITA ROBB ([id number]) on 12/28/2021 7:20:21 AM Referred By: ANNABELLE Confirmed By:JESSE RODRIGUEZ MD
[2021-12-26 02:27] LABS: Troponin-I HS 1512 pg/mL (3.0-78.0)
[2021-12-26 05:33] LABS: Troponin-I HS 2133 pg/mL (3.0-78.0)
--- NOTE | 2021-12-26 07:05 | PN.HOSP_ITS ---
Subjective Subjective Follow-up for acute on chronic systolic heart failure. Patient admitted with chest pressure and shortness of breath for 2 days.Chest pressure and shortness of breath resolved in the morning. Objective Data Objective Data Vital Signs: Vital Signs Temp Pulse Resp BP Pulse Ox 98.5 F 87 18 138/86 H 97 12/26/21 06:47 12/26/21 06:47 12/26/21 06:47 12/26/21 06:47 12/26/21 06:47 Oxygen Flow Rate (L/min) 2 Oxygen Delivery Method Nasal Cannula Weight: 171 lb 15.369 oz Body Mass Index (BMI) 24.6 Intake & Output: Intake and Output for Last 24 Hours 12/24/21 12/25/21 12/26/21 23:59 23:59 23:59 Intake Total 240 / 240 Output Total 1270 / 1270 Balance -1030 / -1030 Lab / Micro Data Result Diagrams: 12/25/21 23:05 12/25/21 23:05 Labs: Laboratory Results - last 24 hr 12/25/21 23:05: WBC 10.2, RBC 4.14 L, Hgb 12.8 L, Hct 38.6 L, MCV 93.2, MCH 30.9, MCHC 33.2, RDW Std Deviation 51.4 H, RDW Coeff of Dane 15.1 H, Plt Count 198, MPV 13.6 H, Immature Gran % (Auto) 0.500, Neut % (Auto) 91.7 H, Lymph % (Auto) 5.6 L, [place] % (Auto) 2.0, Eos % (Auto) 0.0, Baso % (Auto) 0.2, Absolute Neuts (auto) 9.4 H, Absolute Lymphs (auto) 0.57 L, Nucleated RBC % 0, Differential Comment SCANNED 12/25/21 23:05: Sodium 137, Potassium 4.6, Chloride 105, Carbon Dioxide 26.0, Anion Gap 6, BUN 29 H, Creatinine 1.29, Estim Creat Clear Calc 43.23, Est GFR (MDRD) Af Amer 68, Est GFR (MDRD) Non-Af 56 L, BUN/Creatinine Ratio 22.5 H, Glucose 179 H, Calcium 9.7, Troponin I High Sens 1081 H* 12/25/21 23:05: B-Natriuretic Peptide 1685.6 H 12/26/21 01:57: Troponin I High Sens 1512 H* 12/26/21 05:05: Troponin I High Sens 2133 H* Radiography Diagnostic Testing: Radiology Impression Chest X-Ray 12/25/21 23:33 IMPRESSION: 1. Mild interstitial change in the right upper lobe and left lower lobe that were not present previously on 08/09/2021, and are felt to represent a mild bilateral pneumonitis. 2. Borderline cardiomegaly without heart failure. 3. Dual-lead pacemaker with distal leads relatively unchanged in position since the previous study of 08/09/2021. 4. No other active cardiopulmonary disease. 5. Air-filled hepatic flexure of the colon beneath the right hemidiaphragm. 6. Mild demineralization. Electronically Signed: Sean Lennon MD at 0:12 EDT , Physical Exam Narrative Last heart cath in August, showed patent stents. Dr. Toth reviewed cardiac cath images of 2021 Was present. General: Alert, Oriented x3, Cooperative HEENT: Atraumatic, PERRLA, EOMI, Normocephalic Oral: No Gingival or Mucosal Lesions/ Ulcerations Neck: Supple, No JVD, Negative Carotid Bruits Lungs: Air entry diminished in bilateral lung bases. Bibasilar coarse crepitations. Negative wheezing/rhonchi. Cardiovascular: Status post AICD. Systolic murmur LLSB and cardiac apex Abdomen: Bowel Sounds Present, Soft, Non Tender, Non-Distended : No renal angle tenderness. No suprapubic tenderness. Extremities: Mild bilateral ankle pitting edema, Capillary Refill Less than 3 Seconds Skin: No rashes, No breakdown Musculoskeletal: No Tenderness to Palpation of Joints or Extremities Neurological: Cranial nerves II-XII grossly intact, DTR 2+/4 and Symmetrical, Neuro grossly intact Psych/Mental Status: Normal Affect, Appropriate. Assessment & Plan Assessment/Plan (1) Ischemic cardiomyopathy: PLAN: 1. Acute on chronic systolic congestive heart failure due to ischemic cardiomyopathy status post AICD-the patient is being admitted in PCU. Heart failure core measures including intake and output, fluid restriction less than 1500 mL, daily weight monitoring, kidney and electrolytes monitoring. On IV furosemide. Camp Maintenance Supervisor is consulted. Prior echo of 04/18/2021 reported EF 15 to 20%, LV cavity size moderately increased, severely reduced systolic function. Grade 1 diastolic dysfunction, mild AR. Aortic sclerosis. Moderate MR. RVSP 56 mmHg. Last heart cath in April 2021 reported severe CAD involving distal left main, ostial LAD severe in-stent restenosis involving proximal LAD. Ostial LAD is jailed from prior left circumflex stent. Patient follows Dr. Lawrence. 2. Non-STEMI, type II due to demand ischemia discussed with the lowerator operator. Cardiac cath images were discussed with Dr. Escobar. 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 Medical management. Furosemide changed to 40 mg p.o. twice daily as per lowerator operator recommendation. Started on Monoket 10 mg twice daily for angina. Continue rest medical management. Patient is on aspirin, Plavix, carvedilol, Entresto and rivaroxaban #3. Ischemic cardiomyopathy-patient's last EF was 15%, he is on medications for this, patient also has an ICD inserted. #4. Paroxysmal atrial fibrillation-patient is currently on Xarelto and rate limiting medications #5. Recent sinus infection per family physician-patient is currently on doxycycline, continued #6. Hyperglycemia-patient had a recent injection of corticosteroids by his family physician and may have been placed on prednisone, I will not continue the prednisone during his hospital stay CODE STATUS patient is a DNR CC arrest without intubation-discussed with admitting hospitalist Total time of the visit including total time spent in counseling or coordination of care, (more than 50% of the total time, spent in obtaining medical information from nurses and other ancillary care providers,explaining to the patient about labs, imaging, diagnosis and management), discussion with the lowerator operator, review of labs and imaging and review of previous medical records is 40 minutes. Charges/Coding Visit Charges Inpatient E&M: 82691 Subs Hosp L3
[2021-12-26] MEDS: Doxycycline 100 MG CAPSULE PO ×2 (07:44→22:20)
[2021-12-26] MEDS: Potassium Chloride Oral Tablet 20 MEQ PO ×2 (07:44→17:40)
[2021-12-26] MEDS: SACUBITRIL/VALSARTAN 24/26 MG TABLET 1 EACH PO ×2 (07:44→22:19)
[2021-12-26] MEDS: Carvedilol 3.125 MG TABLET PO (07:44)
[2021-12-26] MEDS: Pantoprazole Sodium 40 MG Tablet PO (07:45)
[2021-12-26] MEDS: Clopidogrel Bisulfate 75 MG Tablet PO (07:45)
[2021-12-26] MEDS: Fluticasone 0.05% 1 SPRAY NASAL.SRY 2 SPRAY NASAL (07:45)
[2021-12-26] MEDS: Isosorbide Mononitrate 20 MG Tablet 10 MG PO (15:52)
[2021-12-26] MEDS: Furosemide 40 MG Tablet PO (17:39)
[2021-12-26] MEDS: Carvedilol 6.25 MG Tablet PO (17:40)
[2021-12-26] MEDS: Rivaroxaban 20 MG Tablet PO (17:41)
[2021-12-26] MEDS: Senna Tablet 2 TABLET PO (22:18)
[2021-12-26] MEDS: MELATONIN 10 MG TABLET 5 MG PO (22:19)
[2021-12-26] MEDS: 0.9% Saline Lock 10 ML Syringe IV (22:23)
--- NOTE | 2021-12-26 22:26 | NURSING ---
Weaned patient off oxygen Spo2 95% RA patient does not wear oxygen at home. RR-16 no concerns voiced at this time. call light within reach
[2021-12-27] VITALS (9 sets, daily range): BP systolic 80–122; BP diastolic 49–73; PULSE 60–85; RESP 14–18; TEMP 36.6–37; O2SAT 95–98
[2021-12-27 05:57] LABS: Anion Gap 7 (5-15); BUN 40 mg/dL (7-18); BUN/Creat Ratio 32.5 RATIO (10-20); Calcium,Total 9.4 mg/dL (8.5-10.1); Chloride 100 mmol/L (98-107); Creatinine, Serum 1.23 mg/dL (0.70-1.30); EST Glomerular Filtration Rate 59 mL/min (>60); Est Glom Filt Rate - Afr Amer 72 mL/min (>60); Estimated Creatinine Clearance 45.34 ml/min; Glucose 100 mg/dL (74-106); Potassium 3.9 mmol/L (3.5-5.1); Sodium Level 137 mmol/L (136-145)
[2021-12-27] MEDS: Senna Tablet 2 TABLET PO (06:17)
[2021-12-27] MEDS: Fluticasone 0.05% 1 SPRAY NASAL.SRY 2 SPRAY NASAL (08:10)
[2021-12-27] MEDS: SACUBITRIL/VALSARTAN 24/26 MG TABLET 1 EACH PO (08:11)
[2021-12-27] MEDS: Carvedilol 3.125 MG TABLET PO (08:11)
[2021-12-27] MEDS: Furosemide 40 MG Tablet PO (08:11)
[2021-12-27] MEDS: Potassium Chloride Oral Tablet 20 MEQ PO (08:11)
[2021-12-27] MEDS: Clopidogrel Bisulfate 75 MG Tablet PO (08:11)
[2021-12-27] MEDS: Doxycycline 100 MG CAPSULE PO (08:11)
[2021-12-27] MEDS: Isosorbide Mononitrate 20 MG Tablet 10 MG PO (08:12)
[2021-12-27] MEDS: Pantoprazole Sodium 40 MG Tablet PO (08:12)
--- NOTE | 2021-12-27 10:54 | PCM.CONS.C ---
Assessment & Plan Assessment/Plan (1) CHF (congestive heart failure): QUALIFIERS: Heart failure type: unspecified Heart failure chronicity: acute on chronic Qualified Code(s): I50.9 - Heart failure, unspecified PLAN: Improved with diuresis. Will be reasonable to discharge the patient home on 40 mg daily of Lasix. Continue other medications. (2) Atherosclerosis of coronary artery of [place] heart with angina pectoris: QUALIFIERS: Coronary Disease-Associated Artery/Lesion type: [place] artery Qualified Code(s): I25.119 - Atherosclerotic heart disease of [place] coronary artery with unspecified angina pectoris (3) Non-STEMI (non-ST elevated myocardial infarction): PLAN: Appears to be type II [place] secondary to patient's CHF superimposed on chronic CAD with small branches with stenoses. Continue current medications. He denies any anginal symptoms at this time. (4) Nonsustained ventricular tachycardia: PLAN: Continue beta-suha. We are checking magnesium level. If it is low we will replace. Patient has not tolerated amiodarone or sotalol in the past. He has been sensitive to multiple medications in the past as well. He has not had any dizziness or syncope with this. He has had this apparently for months. HPI Consult Data Date of Consult: 12/27/21 HPI Narrative HPI Narrative: FLEX GARCIA, is a 86 M who presents with shortness of breath. He was found to be in CHF and was diuresed. He was evaluated yesterday and the plan was discussed with the primary team. The consult is being dictated today due to the EMR downtime. Patient's shortness of breath improved overnight after admission with diuresis. His troponin however went up to around 2000. His angiogram from earlier this year was reviewed. The major epicardial coronary arteries were patent. He had some small branches with stenoses. Patient was also found to have about 3 to 4-second runs of nonsustained V. tach. He states that at home also he has been feeling fluttering sensation that lasts around 5 seconds. He denies any dizziness, syncope etc. He states he feels sweaty when he gets the symptoms. He has not tolerated amiodarone or sotalol in the past. Review of systems: All systems reviewed. All else is negative except in the [facility] Medical History (Updated 12/27/21 @ 11:[address] Abdi Toth MD) Acute blood loss anemia Anemia Arthritis Atherosclerosis of coronary artery of [place] heart with angina pectoris BPH (benign prostatic hyperplasia) Bruising Cancer Carotid artery disease Chronic systolic (congestive) heart failure Constipation DDD (degenerative disc disease) Essential (primary) hypertension GERD (gastroesophageal reflux disease) Hematuria Hiatal hernia History of non-ST elevation myocardial infarction (NSTEMI) (04/2021) HLD (hyperlipidemia) Irregular heart beat Ischemic cardiomyopathy Left bundle branch block (LBBB) Left carotid artery stenosis Male hypogonadism Non-smoker Nonsustained ventricular tachycardia 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 infarction Pacemaker Paroxysmal atrial fibrillation Polycythemia Secondary pulmonary arterial hypertension Segmental and somatic dysfunction of pelvic region Segmental and somatic dysfunction of thoracic region Shortness of breath on exertion Sinus drainage TIA (transient ischemic attack) Wears dentures Wears glasses Home Medications pantoprazole 40 mg PO DAILY 10/29/16 [History Last Taken 08/13/19] nitroglycerin 0.4 mg sublingual tablet 0.4 mg SUBLINGUAL Q5-15M PRN #25 tab 07/22/20 [Rx Last Taken Unknown] acetaminophen 325 mg PO Q6H PRN 12/10/20 [History Last Taken Unknown] clopidogrel 75 mg tablet 75 mg PO DAILY #90 tab 05/06/21 [Rx Last Taken Unknown] fluticasone propionate 2 spray INTRANASAL DAILY 08/09/21 [History Last Taken Unknown] furosemide 40 mg tablet 40 mg PO .PRN #30 tab 08/13/21 [Rx Last Taken Unknown] sacubitril 24 mg-valsartan 26 mg tablet 1 tab PO BID #60 tab 09/14/21 [Rx Last Taken Unknown] rivaroxaban 20 mg tablet 20 mg PO QPM #30 tab 10/21/21 [Rx Last Taken Unknown] carvedilol 6.25 mg tablet 6.25 mg PO .COMPLEX #90 tab 12/24/21 [Rx Last Taken Unknown] doxycycline hyclate 100 mg PO BID 12/25/21 [History Last Taken Unknown] prednisone 12/25/21 [History Last Taken Unknown] Allergy/AdvReac Type Severity Reaction Status Date / Time hydrochlorothiazide Allergy Severe Severe Verified 12/25/21 22:37 itching rash promethazine [From Phenergan] Allergy Other Verified 12/25/21 22:37 apixaban [From Eliquis] AdvReac Severe All over Verified 12/25/21 22:37 itching and rash ranolazine [From Ranexa] AdvReac Severe Rash Verified 12/25/21 22:37 omeprazole AdvReac Unknown Verified 12/25/21 22:37 Phenothiazines AdvReac Unknown Verified 12/25/21 22:37 Hvqdejc-KYR-GxW Reductase AdvReac myalgias Verified 12/25/21 22:37 Inhibitor [Tmjhaim-Ydq-Vmj Reductase Inhibitor] PHENEGRANZOLE AdvReac Unknown Uncoded 12/25/21 22:37 Family History Father , Age 37 from [place] CAD (coronary artery disease) Myocardial infarction Sudden cardiac Mother , age 96 Diabetes Surgical History History of appendectomy History of cataract surgery History of coronary artery stent placement (04/19/21) History of electrophysiologic study (2009) History of hernia repair History of implantable cardiac defibrillator (ICD) (05/17/10) History of intraocular lens implant History of left heart catheterization (08/09/21) History of transurethral resection of prostate (12/16/20) Social History Smoking Status: Never smoker alcohol intake: never substance use type: does not use caffeine: Yes Type: carbonated beverages Number of servings: 1 and coffee Number of servings: 1 what type of physical activity do you participate in: none Physical Exam Const alert and oriented x3 Orientation / Consciousness: awake HEENT normocephalic Eyes no scleral icterus Chest inspection of chest normal Resp Auscultation: crackles bilateral lower Extremity no pedal edema Skin no rashes or lesions noted Neuro oriented x3 Psych mental status grossly normal Risk Stratification Risk Stratification Applicable: No Charges/Coding Visit Charges Inpatient E&M: 85090 Init Hosp L3 Objective Data Vital Signs: Vital Signs Temp Pulse Resp BP Pulse Ox 97.9 F 70 16 122/72 H 97 12/27/21 08:06 12/27/21 08:06 12/27/21 08:06 12/27/21 08:06 12/27/21 08:06 Oxygen Flow Rate (L/min) 2 Oxygen Delivery Method Room Air Weight: 167 lb 5.294 oz Body Mass Index (BMI) 24.6 Intake & Output: Intake and Output for Last 24 Hours 12/25/21 12/26/21 12/27/21 23:59 23:59 23:59 Intake Total 1070 / 1070 Output Total 3795 / 3795 1300 / 1300 Balance -2725 / -2725 -1300 / -1300 Lab / Micro Data Result Diagrams: 12/25/21 23:05 12/27/21 04:30 Labs: Laboratory Results - last 24 hr 12/27/21 04:30: Sodium 137, Potassium 3.9, Chloride 100, Carbon Dioxide 30.0, Anion Gap 7, BUN 40 H, Creatinine 1.23, Estim Creat Clear Calc 45.34, Est GFR (MDRD) Af Amer 72, Est GFR (MDRD) Non-Af 59 L, BUN/Creatinine Ratio 32.5 H, Glucose 100, Calcium 9.4 Cardiology Labs/Tests 12/27/21 04:30: Sodium 137, Potassium 3.9, Chloride 100, Carbon Dioxide 30.0, Anion Gap 7, BUN 40 H, Creatinine 1.23, Est GFR (MDRD) Af Amer 72, Est GFR (MDRD) Non-Af 59 L, BUN/Creatinine Ratio 32.5 H, Glucose 100, Calcium 9.4 Rhythm: EKG: ECHO: Stress Test: Cardiac Cath: PCI: CT Surgery: Holter monitor: EPS: PPM: CXR: Chest CT Scan:
[2021-12-27] MEDS: 0.9% Normal Saline 250 ML IV.SOLN. IV (11:33)
--- NOTE | 2021-12-27 13:45 | CASEMGMT ---
RN ZOE KELP GATHERER CM to room to meet with patient for initial transition planning/care coordination assessment. RN ZOE introduced self and role at [facility]. Pt voices understanding and consents to assessment at this time. Pt resting in bed in no distress at this time. Pt is A/O at this time and answers all questions appropriately. Care providers, pharmacy, and demographics verified/updated at this time. PCP: Dr Pena Specialists:Dr Lawrence-cardiology Preferred Pharmacy: [facility] Retail Insurance: [facility], [employer] Prescription Benefit: yes Living Will/HPOA: Has both LW and HPOA, who is his . LNOK: , Mary Living Arrangements: Lives w/ in one-story home. Chair lift to basement. Independent w/ADL's. manages home tasks and helps pt w/medications. Transportation: Pt states drives self and states no transportation concerns at this time. DME: States has the following DME: cane for community distances, shower bench, lift chair to basement. Pt states no need for further DME at this time. HHC/SNF: No hx of either. No needs identified. Denies need for HHC. Pt wishes to return home and states has no concerns with going home at time of discharge. CM to follow for home oxygen needs and any further discharge planning/needs. Pt voices no further concerns/needs at this time. Advised pt to ask for CM if any further questions/concerns/needs arise. Voices understanding. Discussed Palliative care for management of CHF. Pt declines wanting at this time. He states he wants to f/u w/Dr Lawrence and may discuss things w/him. PLAN: Home w/[facility] Pt Link Chris BELTRE RN, CM
--- NOTE | 2021-12-27 14:43 | NURSING ---
Approached patient about [facility] Patient Link program. Patient agreeable, signed consent. Asked FORESTRY FOREMAN to come back and explain program to when she gets here around 3 pm.
--- NOTE | 2021-12-27 15:27 | DS.PCM_ITS ---
Providers Date of Admission: 12/26/21 Primary Care Physician: Dr. Jacques Pena MD Consultations 12/26/21 01:45 Consult: Cardiology Routine Consulting Provider: Abdi Toth Reason for Consult: Congestive heart failure, elevated troponin EMERGENT Consult: No MD Notified: Yes Date Notified: 12/26/21 Time Notified: 07:07 Method of Notification: Text Reason For Visit: ACUTE ON CHRONIC SYSTOLIC CONGESTIVE HEART FAILURE Diagnosis Discharge Diagnosis (1) CHF (congestive heart failure): Status: Acute Code(s): I50.9 - Heart failure, unspecified Qualifiers: Heart failure type: unspecified Heart failure chronicity: acute on chronic Qualified Code(s): I50.9 - Heart failure, unspecified (2) Atherosclerosis of coronary artery of [place] heart with angina pectoris: Status: Chronic Code(s): I25.119 - Atherosclerotic heart disease of [place] coronary artery with unspecified angina pectoris Qualifiers: Coronary Disease-Associated Artery/Lesion type: [place] artery Qualified Code(s): I25.119 - Atherosclerotic heart disease of [place] coronary artery with unspecified angina pectoris (3) Non-STEMI (non-ST elevated myocardial infarction): Status: Acute Code(s): I21.4 - Non-ST elevation (NSTEMI) myocardial infarction (4) Nonsustained ventricular tachycardia: Status: Chronic Code(s): I47.2 - Ventricular tachycardia Medications at Discharge Home Medications pantoprazole 40 mg PO DAILY 10/29/16 nitroglycerin 0.4 mg sublingual tablet 0.4 mg SUBLINGUAL Q5-15M PRN #25 tab 07/22/20 acetaminophen 325 mg PO Q6H PRN 12/10/20 clopidogrel 75 mg tablet 75 mg PO DAILY #90 tab 05/06/21 fluticasone propionate 2 spray INTRANASAL DAILY 08/09/21 sacubitril 24 mg-valsartan 26 mg tablet 1 tab PO BID #60 tab 09/14/21 rivaroxaban 20 mg tablet 20 mg PO QPM #30 tab 10/21/21 carvedilol 6.25 mg tablet 6.25 mg PO .COMPLEX #90 tab 12/24/21 doxycycline hyclate 100 mg PO BID 12/25/21 prednisone 12/25/21 furosemide [Lasix] 40 mg PO DAILY #30 tab 05/23/22 Hospital Course Operations None Procedures EKG Summary of Care Provided Minutes Spent on Discharge: 37 Hospital Course: Mr. Solis is an 86-year-old white male who presented to the emergency department [facility] on 12/26/2021 early in the morning complaining of chest tightness and shortness of breath that has been increasing over the last 2 days prior to presentation. The patient has a known history of chronic ischemic cardiomyopathy and he most recently had a cardiac catheterization in August of this year. At that time it showed patent stents and an EF of 15%. The patient has an ICD and is on medication for chronic systolic congestive heart failure. He is not on a chronic diuretic secondary to intermittent hypotension and takes it only intermittently. The patient does indicate he is not necessarily all that compliant with his diet and does not watch his salt intake. In the emergency department a chest x-ray was performed and showed evidence of acute decompensated congestive heart failure and the patient re quired nasal cannula at 3 L of oxygen to maintain a pulse ox greater than 90%. His labs were overall unremarkable other than a troponin elevation at 1081 and a BNP elevation at 1685 both above his baseline numbers. His EKG showed a chronic left bundle branch block and sinus tachycardia with a heart rate of 112. He had no acute changes consistent of any acute ischemia. The patient was given Lasix in the emergency department and he was admitted to the PCU for acute on chronic systolic congestive heart failure. He diuresed well with IV Lasix and the hospitalist taking care of the patient on 12/26/2021 had a conversation with the on-call vamp liner with regards to his NSTEMI. Cardiac cath eterization images were reviewed and it was felt medical management was most appropriate. He was maintained on his home medications and his diuresis was continued. Overnight on 12/26/2021 through 12/27/2021 the patient had some paroxysmal ventricular tachycardia that was monomorphic in nature. He was mildly symptomatic with some lightheadedness with this. He was evaluated by cardiology this morning and initially Dr. Toth was thinking of initiating him on sotalol versus amiodarone however after discussion with his primary vamp liner, Dr. Lawrence, the patient has not tolerated amiodarone or sotalol in the past and has been sensitive to multiple medications. He has not had any significant dizziness or syncope with this and it has been problematic for several months and the decision was made to add no further medications as appears the risk is greater than the benefit of initiation. As noted above the patient does have an ICD. The patient has been weaned from nasal cannula to trudy m air with oxygen saturations anywhere from 95 to 98%. He did have an episode where he got lightheaded late morning on 12/27/2021. He was noted to be hypotensive at that time and during this episode he was on the toilet having a bowel movement. It was felt that this was a vagal response and he was evaluated and monitored for several hours following and had no further episodes. His blood pressure prior to discharge was 121 systolic. He was able to be discharged home in stable condition with the addition of only daily Lasix on 12/27/2021. I did ask him to follow-up closely with his primary care physician and obtain a basic metabolic profile by the end of the week to evaluate his kidney function. He is to follow-up with his primary care physician within the next 2 weeks for hospital follow-up and he has an appointment on 01/17/2022 with his vamp liner. We have also asked the home monitoring program to evaluate the patient upon discharge for close follow-up to avoid further hospital admissions related to acute heart failure. Discharge diagnoses: Acute on chronic systolic heart failure-resolved Acute hypoxic respiratory failure secondary above-resolved Nonsustained VT NSTEMI type II CAD BPH Carotid artery disease Chronic constipation Osteoarthritis DDD Hypertension GERD Hiatal hernia HPL Chronic left bundle branch block TIA Medication intolerance Physical Exam Const alert, oriented x3, no apparent distress and average body habitus Constitutional Narrative: Pleasant elderly white male sitting up in bed, appears comfortable nontoxic General Appearance: cooperative, comfortable, well kempt and well developed Orientation / Consciousness: awake Exam Limitations: no limitations HEENT normocephalic, head/scalp atraumatic and moist oral mucous membranes HEENT Narrative: Moderately hard of hearing, dentures in place, Mallampati 2, no thrush Eyes PERRL, EOMs intact bilaterally and conjunctivae normal Eyes Narrative: No scleral icterus Neck no lymphadenopathy, supple and no JVD Neck Narrative: Trachea midline, no thyroid enlargement Resp normal respiratory effort, no retractions, no use of accessory muscles and clear to auscultation bilaterally Resp Narrative: Diffusely diminished but clear Auscultation: Negative for crackles, rales, rhonchi or wheezes Cardio regular rate, regular rhythm, S1 normal heart sound, S2 normal heart sound, no rub, no gallops, no clicks and no JVD; Negative for no murmurs Cardio Narrative: Few scattered ectopic beats with a 2 out of 6 systolic murmur loudest at the right upper sternal border GI normal to inspection, nondistended, normoactive bowel sounds, soft to palpation, non-tender and non-distended Extremity no clubbing, cyanosis or edema Extremity Narrative: Pedal pulses are 2+ Skin no rashes or lesions noted, no wounds, skin turgor normal and no jaundice Neuro oriented x3, CN's II-XII intact bilaterally, moves all extremities and no focal motor deficits Neuro Narrative: Mild generalized weakness-proximal greater than distal Sensorium / Orientation: awake and alert Speech: speech normal Psych affect normal Psych Narrative: Very pleasant and appropriately interactive Weight / BMI Weight Weight: 75.9 kg Body Mass Index (BMI) 24.6 ABG / Lab / Microbiology Data Result Diagrams: 12/25/21 23:05 12/27/21 04:30 Laboratory: Laboratory Results - last 24 hr 12/27/21 04:30: Sodium 137, Potassium 3.9, Chloride 100, Carbon Dioxide 30.0, Anion Gap 7, BUN 40 H, Creatinine 1.23, Estim Creat Clear Calc 45.34, Est GFR (MDRD) Af Amer 72, Est GFR (MDRD) Non-Af 59 L, BUN/Creatinine Ratio 32.5 H, Glucose 100, Calcium 9.4 12/27/21 04:30: Magnesium 2.0 D/C Instructions Discharge Diet: Low fat / Low cholesterol, 8 Cup Fluid Restriction and 2000 mg Sodium Diet Discharge Activity: Return to Normal Activity Meaningful Use Info Meaningful Use Diagnoses (Choose all that apply): None applicable Discharge Plan Admission Admit Date/Time: 12/26/21 01:18 Primary Reason for Your Visit: Breath/chest tightness Attending Provider: Kim Quiles Primary Care Provider: Jacques Pena Chi Consulting Providers: Gary Davila ; Abdi Toth ; Rui Mcleod Instructions Additional Instructions / Restrictions: 1. Please call primary care physician and have them order a basic metabolic profile to be done by the end of this week to assess kidney function Discharge Orders/Prescriptions Prescriptions: New furosemide [Lasix] 40 mg tablet 40 mg PO DAILY Qty: 30 RF: 0 Continued nitroglycerin 0.4 mg tablet, sublingual 0.4 mg sublingual Q5-15M PRN (Reason: chest pain) Qty: 25 RF: 3 clopidogrel [Plavix] 75 mg tablet 75 mg PO DAILY Qty: 90 RF: 3 Hold Instructions: Resume on 12/30/20. carvedilol 6.25 mg tablet 6.25 mg PO .COMPLEX Qty: 90 RF: 3 pantoprazole 40 MG tablet 40 mg PO DAILY RF: 0 acetaminophen 325 mg Capsule 325 mg PO Q6H PRN (Reason: Pain) RF: 0 fluticasone propionate 50 mcg/actuation spray,suspension 2 spray INTRANASAL DAILY RF: 0 doxycycline hyclate 100 mg tablet 100 mg PO BID RF: 0 prednisone 10 mg tablet RF: 0 Entresto 24-26 mg tablet 1 tab PO BID Qty: 60 RF: 11 Xarelto 20 mg tablet 20 mg PO QPM Qty: 30 RF: 11 Discontinued furosemide 40 mg tablet 40 mg PO .PRN Qty: 30 RF: 0 Referrals / Follow Up: Jacques Pena Chi, MD [Primary Care Provider] - Within 2 Weeks Mirtha Prado NP, LEAD APPLICATION ARCHITECT-C [Nurse Practitioner] - 01/17/22 2:00 pm Disposition Disposition (needs filled in before D/C Order can be placed): Home, Self Care Charges/Coding Visit Charges Inpatient E&M: 35794 Disch Hosp
--- NOTE | 2021-12-27 15:48 | CASEMGMT ---
Pt has been on room air and up in room. Pt voices no concerns with going home at time of discharge. Jessica WALLER CM
== END 2021-12-27 17:46 | disposition home or self-care (01) | DRG 280 ==
LOC: ED 12-26 00:24 → PCU 12-26 00:35
PROVIDERS: Admitting Provider Internal Medicine; Emergency Provider Emergency Medicine; PCP Family Medicine Geriatric Medicine; Visit Provider Internal Medicine
DX: I11.0 Hypertensive heart disease with heart failure (principal); I21.A1 Myocardial infarction type 2; I50.23 Acute on chronic systolic (congestive) heart failure; J96.01 Acute respiratory failure with hypoxia; I47.2 Ventricular tachycardia; I48.0 Paroxysmal atrial fibrillation; I25.119 Atherosclerotic heart disease of native coronary artery with unspecified angina pectoris; I25.5 Ischemic cardiomyopathy; E78.5 Hyperlipidemia, unspecified; K44.9 Diaphragmatic hernia without obstruction or gangrene; K59.09 Other constipation; M19.90 Unspecified osteoarthritis, unspecified site; N40.0 Benign prostatic hyperplasia without lower urinary tract symptoms; K21.9 Gastro-esophageal reflux disease without esophagitis; I44.7 Left bundle-branch block, unspecified; I25.2 Old myocardial infarction; R73.9 Hyperglycemia, unspecified; Z66 Do not resuscitate; Z95.810 Presence of automatic (implantable) cardiac defibrillator; Z79.02 Long term (current) use of antithrombotics/antiplatelets; Z79.899 Other long term (current) drug therapy; Z86.73 Personal history of transient ischemic attack (TIA), and cerebral infarction without residual deficits
CPT/HCPCS: 36415; 71045; 80048; 83735; 83880; 84484; 85025; 93005; 97802; 99285; J7050; A4216; J1940

== ENCOUNTER → 2021-12-29 | Outpatient (CLI) | payer MEDICARE, OTHER, SELFPAY ==
[2020-04-02 11:50] VITALS: BMI 26.2
== END | disposition home or self-care (01) ==
LOC: POLAB3 12:03
PROVIDERS: PCP Family Medicine Geriatric Medicine; Visit Provider Family Medicine Geriatric Medicine
DX: I50.9 Heart failure, unspecified (principal)

== ENCOUNTER → 2022-01-25 | Outpatient (CLI) | payer MEDICARE, OTHER, SELFPAY ==
[2020-04-02 11:50] VITALS: BMI 26.2
[2022-01-25 12:50] LABS: POSITIVE MORPHOLOGY YES
[2022-01-25 12:52] LABS: Absolute Lymphocyte Count 1.15 X10^3/uL (0.83-4.51); Basophil# 0.04 X10^3/uL; Basophil% 0.6 % (0-1); Eosinophil# 0.12 X10^3/uL; Eosinophils% 1.8 % (0-5); Hematocrit 36.7 % (40-54); Hemoglobin 11.7 g/dL (13.0-16.5); Lymphocyte # 1.15 X10^3/ul (0.83-4.51); Lymphocyte % 17.1 % (19-41); Mean Corp Hgb Conc 31.9 g/dL (32-36); Mean Corpuscular Hgb 30.4 pg (27.0-32.0); Mean Corpuscular Volume 95.3 fL (80-94); Mean Platelet Vol. 13.1 fl (6.2-12.0); Monocyte# 0.37 X10^3/uL; Monocyte% 5.5 % (0-10); NRBC Flagged by Analyzer 0 % (0-5); Neutrophil # 5.02 X10^3/uL (2.7-7.7); Neutrophil % 74.4 % (47-70); Platelet Count 159 K/mm3 (150-450); RBC Distribution Width CV 14.6 % (11.6-14.6); RBC Distribution Width SD 50.4 fl (35.1-43.9); Red Blood Count 3.85 M/mm3 (4.6-6.2); White Blood Count 6.7 K/mm3 (4.4-11.0)
[2022-01-25 13:06] LABS: Albumin, Serum 3.7 g/dL (3.2-5.0); BUN 22 mg/dL (7-18); BUN/Creat Ratio 19.1 RATIO (10-20); Creatinine, Serum 1.15 mg/dL (0.70-1.30); EST Glomerular Filtration Rate 64 mL/min (>60); Est Glom Filt Rate - Afr Amer 78 mL/min (>60); Globulin 3.3 g/dL (2.2-4.2); Glucose 133 mg/dL (74-106)
[2022-01-25 13:07] LABS: ALB/GLOB Ratio 1.1 RATIO (0.9-2.4); AST(SGOT) 16 U/L (15-37); Alanine Aminotransfer ALT/SGPT 20 U/L (16-61); Alkaline Phosphatase 69 U/L (45-117); Anion Gap 5 (5-15); Calcium,Total 9.2 mg/dL (8.5-10.1); Chloride 106 mmol/L (98-107); Potassium 3.9 mmol/L (3.5-5.1); Sodium Level 139 mmol/L (136-145); Thyroid Stim Hormone (TSH) 0.88 uIU/mL (0.358-3.74)
[2022-01-25 13:11] LABS: Vitamin D,25 Hydroxy 39.8 ng/mL
== END | disposition home or self-care (01) ==
PROVIDERS: PCP Family Medicine Geriatric Medicine; Visit Provider Family Medicine Geriatric Medicine
DX: E11.65 Type 2 diabetes mellitus with hyperglycemia (principal); E23.6 Other disorders of pituitary gland; E55.9 Vitamin D deficiency, unspecified; I10 Essential (primary) hypertension
CPT/HCPCS: 36415; 80053; 82306; 84403; 84443; 85025

== ENCOUNTER → 2022-04-13 | Outpatient (CLI) | payer MEDICARE, OTHER, SELFPAY ==
[2020-04-02 11:50] VITALS: BMI 26.2
[2022-04-13 17:05] LABS: Hematocrit 35.2 % (40-54); Hemoglobin 11.4 g/dL (13.0-16.5); Mean Corp Hgb Conc 32.4 g/dL (32-36); Mean Corpuscular Hgb 31.4 pg (27.0-32.0); Mean Platelet Vol. 13.6 fl (6.2-12.0); Platelet Count 161 K/mm3 (150-450); RBC Distribution Width CV 13.9 % (11.6-14.6); RBC Distribution Width SD 49.6 fl (35.1-43.9); Red Blood Count 3.63 M/mm3 (4.6-6.2); White Blood Count 6.6 K/mm3 (4.4-11.0)
[2022-04-13 17:37] LABS: Anion Gap 6 (5-15); BUN 26 mg/dL (7-18); BUN/Creat Ratio 22.4 RATIO (10-20); Calcium,Total 9.5 mg/dL (8.5-10.1); Chloride 102 mmol/L (98-107); Creatinine, Serum 1.16 mg/dL (0.70-1.30); EST Glomerular Filtration Rate 63 mL/min (>60); Est Glom Filt Rate - Afr Amer 77 mL/min (>60); Glucose 120 mg/dL (74-106); Magnesium 2.4 mg/dL (1.6-2.6); Potassium 4.2 mmol/L (3.5-5.1); Sodium Level 138 mmol/L (136-145)
== END | disposition home or self-care (01) ==
LOC: LAB 15:32
PROVIDERS: PCP Family Medicine Geriatric Medicine; Referring Provider Internal Medicine Cardiovascular Disease; Visit Provider Internal Medicine Cardiovascular Disease
DX: I25.5 Ischemic cardiomyopathy (principal); I95.9 Hypotension, unspecified; I49.3 Ventricular premature depolarization
CPT/HCPCS: 36415; 80048; 83735; 85027

== ENCOUNTER → 2022-04-26 | Outpatient (CLI) | payer MEDICARE, OTHER, SELFPAY ==
[2020-04-02 11:50] VITALS: BMI 26.2
[2022-04-26 12:12] LABS: Absolute Lymphocyte Count 1.12 X10^3/uL (0.83-4.51); Basophil# 0.05 X10^3/uL; Basophil% 0.7 % (0-1); Eosinophil# 0.17 X10^3/uL; Eosinophils% 2.5 % (0-5); Hematocrit 35.4 % (40-54); Hemoglobin 11.3 g/dL (13.0-16.5); Lymphocyte # 1.12 X10^3/ul (0.83-4.51); Lymphocyte % 16.4 % (19-41); Mean Corp Hgb Conc 31.9 g/dL (32-36); Mean Corpuscular Hgb 31.2 pg (27.0-32.0); Mean Corpuscular Volume 97.8 fL (80-94); Mean Platelet Vol. 13.6 fl (6.2-12.0); Monocyte# 0.49 X10^3/uL; Monocyte% 7.2 % (0-10); NRBC Flagged by Analyzer 0 % (0-5); Neutrophil # 4.99 X10^3/uL (2.7-7.7); Neutrophil % 72.8 % (47-70); Platelet Count 165 K/mm3 (150-450); RBC Distribution Width CV 13.9 % (11.6-14.6); RBC Distribution Width SD 49.4 fl (35.1-43.9); Red Blood Count 3.62 M/mm3 (4.6-6.2); White Blood Count 6.9 K/mm3 (4.4-11.0)
[2022-04-26 12:34] LABS: ALB/GLOB Ratio 1.1 RATIO (0.9-2.4); AST(SGOT) 15 U/L (15-37); Alanine Aminotransfer ALT/SGPT 13 U/L (16-61); Albumin, Serum 3.4 g/dL (3.2-5.0); Alkaline Phosphatase 64 U/L (45-117); Anion Gap 10 (5-15); BUN 22 mg/dL (7-18); Calcium,Total 8.9 mg/dL (8.5-10.1); Chloride 104 mmol/L (98-107); EST Glomerular Filtration Rate 67 mL/min (>60); Est Glom Filt Rate - Afr Amer 82 mL/min (>60); Globulin 3.2 g/dL (2.2-4.2); Glucose 127 mg/dL (74-106); Protein, Total 6.6 g/dL (6.4-8.2); Sodium Level 142 mmol/L (136-145); Thyroid Stim Hormone (TSH) 1.42 uIU/mL (0.358-3.74)
[2022-04-26 12:40] LABS: Vitamin D,25 Hydroxy 23.5 ng/mL
== END | disposition home or self-care (01) ==
LOC: POLAB3 09:55
PROVIDERS: PCP Family Medicine Geriatric Medicine; Visit Provider Family Medicine Geriatric Medicine
DX: E11.65 Type 2 diabetes mellitus with hyperglycemia (principal); E23.6 Other disorders of pituitary gland; E55.9 Vitamin D deficiency, unspecified; I10 Essential (primary) hypertension
CPT/HCPCS: 36415; 80053; 82306; 84403; 84443; 85025

== ENCOUNTER → 2022-06-01 | Outpatient (CLI) | payer MEDICARE, OTHER, SELFPAY ==
[2020-04-02 11:50] VITALS: BMI 26.2
--- NOTE | 2022-06-01 15:24 | RAD_ITS ---
STUDY: X-RAY CHEST REASON FOR EXAM: Male, 87 years old. SOB TECHNIQUE: PA and lateral views of the chest. COMPARISON: 12/25/2021 FINDINGS: Right subclavian AICD. The lungs are clear and expanded. Slightly elevated right hemidiaphragm. Normal size heart. Normal mediastinum and agapito. Normal visualized pulmonary arteries. Normal visualized aortic arch and descending thoracic aorta. Normal visualized thoracic spine. Normal visualized ribs, clavicles, and shoulders. There is no demonstrated abnormality of the visualized soft tissue structures of the upper abdomen. RAD/Chest PA and Lateral IMPRESSION: No active disease. Electronically Signed: Stew Leo MD at 15:37 EDT ,
== END | disposition home or self-care (01) ==
LOC: RAD 14:56
PROVIDERS: PCP Family Medicine Geriatric Medicine; Referring Provider Family Medicine Geriatric Medicine; Visit Provider Family Medicine Geriatric Medicine
DX: R06.02 Shortness of breath (principal); R68.83 Chills (without fever)
CPT/HCPCS: 71046; 87635; 87804; 87807; U0003; U0005

== ENCOUNTER → 2022-07-27 | Outpatient (CLI) | payer MEDICARE, OTHER, SELFPAY ==
[2020-04-02 11:50] VITALS: BMI 26.2
[2022-07-27 17:08] LABS: Absolute Lymphocyte Count 1.24 X10^3/uL (0.83-4.51); Absolute Neutrophil Count 4.2 X10^3/uL (2.0-7.7); Basophil# 0.05 X10^3/uL; Basophil% 0.8 % (0-1); Eosinophil# 0.14 X10^3/uL; Eosinophils% 2.3 % (0-5); Hematocrit 35.8 % (40-54); Hemoglobin 11.7 g/dL (13.0-16.5); Lymphocyte # 1.24 X10^3/ul (0.83-4.51); Lymphocyte % 20.5 % (19-41); Mean Corp Hgb Conc 32.7 g/dL (32-36); Mean Corpuscular Volume 94.7 fL (80-94); Mean Platelet Vol. 13.4 fl (6.2-12.0); Monocyte# 0.41 X10^3/uL; Monocyte% 6.8 % (0-10); NRBC Flagged by Analyzer 0 % (0-5); Neutrophil # 4.19 X10^3/uL (2.7-7.7); Neutrophil % 69.4 % (47-70); Platelet Count 172 K/mm3 (150-450); RBC Distribution Width SD 48.2 fl (35.1-43.9); Red Blood Count 3.78 M/mm3 (4.6-6.2)
[2022-07-27 17:40] LABS: Vitamin D,25 Hydroxy 36.2 ng/mL
[2022-07-27 18:05] LABS: ALB/GLOB Ratio 1.1 RATIO (0.9-2.4); AST(SGOT) 14 U/L (15-37); Alanine Aminotransfer ALT/SGPT 14 U/L (16-61); Albumin, Serum 3.6 g/dL (3.2-5.0); Alkaline Phosphatase 72 U/L (45-117); Anion Gap 7 (5-15); BUN 22 mg/dL (7-18); BUN/Creat Ratio 21.6 RATIO (10-20); Calcium,Total 9.3 mg/dL (8.5-10.1); Chloride 106 mmol/L (98-107); Creatinine, Serum 1.02 mg/dL (0.70-1.30); EST Glomerular Filtration Rate 74 mL/min (>60); Est Glom Filt Rate - Afr Amer 89 mL/min (>60); Globulin 3.4 g/dL (2.2-4.2); Glucose 113 mg/dL (74-106); Potassium 3.9 mmol/L (3.5-5.1); Sodium Level 141 mmol/L (136-145); Thyroid Stim Hormone (TSH) 1.96 uIU/mL (0.358-3.74)
== END | disposition home or self-care (01) ==
LOC: POLAB3 14:23
PROVIDERS: PCP Family Medicine Geriatric Medicine; Visit Provider Family Medicine Geriatric Medicine
DX: E55.9 Vitamin D deficiency, unspecified (principal); I10 Essential (primary) hypertension
CPT/HCPCS: 36415; 80053; 82306; 84443; 85025

== ENCOUNTER 2022-09-26 07:03 | Inpatient (IN) | payer MEDICARE, OTHER, SELFPAY ==
[2020-04-02 11:50] VITALS: BMI 26.2
[2022-09-26] VITALS (12 sets, daily range): BP systolic 131–152; BP diastolic 66–93; PULSE 71–97; RESP 16–20; TEMP 36.4–37.1; O2SAT 88–99; BMI 24.3
--- NOTE | 2022-09-26 07:50 | RAD_ITS ---
STUDY: X-RAY CHEST REASON FOR EXAM: Male, 87 years old. sob/cp TECHNIQUE: Single AP portable view of the chest. COMPARISON: Comparison is made with prior examination of 06/01/2022. FINDINGS: EKG electrodes are seen. A right-sided dual-chamber pacemaker is present. Since prior study, there has been an increase in the interstitial markings in the right upper lobe as well as both lower lobes suggestive of a mild CHF with superimposed bibasilar atelectasis on chronic basilar scarring. There is blunting of the left costo phrenic angle. There is mild cardiac enlargement. Normal mediastinum and agapito. Normal visualized pulmonary arteries. There is atherosclerotic tortuosity of the aortic arch and descending thoracic aorta. Normal visualized thoracic spine. Normal visualized ribs, clavicles, and shoulders. There is no demonstrated abnormality of the visualized soft tissue structures of the upper abdomen. RAD/Chest 1 View (Portable) IMPRESSION: Findings suggest a mild degree of CHF with superimposed bibasilar atelectasis and basilar scarring worse on the left lung base with blunting of the left costophrenic angle. Electronically Signed: Xander Flynn MD at 9:10 EST ,
--- NOTE | 2022-09-26 07:50 | EKG12_ITS ---
Test Reason : Blood Pressure : / mmHG Vent. Rate : 098 BPM Atrial Rate : 096 BPM P-R Int : 156 ms QRS Dur : 162 ms QT Int : 398 ms P-R-T Axes : 016 -33 133 degrees QTc Int : 508 ms Undetermined rhythm : Consider Sinus Rhythm with premature ectopic complexes Left axis deviation Left bundle branch block Abnormal ECG Confirmed by ELISABET ROCHA, SERGIO ([id number]), videotape editor BITA ROBB ([id number]) on 09/27/2022 11:22:53 AM Referred By: FREDDY Confirmed By:SERGIO BHANDARI MD
--- NOTE | 2022-09-26 07:52 | ED.VIS.CHEST ---
HPI History of Present Illness Chief Complaint: Chest Pain Informant: patient and spouse/S.O. () Narrative Narrative: Patient with exertional sternal chest discomfort over the past 2 or 3 days, along with dyspnea and weight gain, couple pounds. He has a history of significant CAD and CHF, so he does not take Lasix daily but because of all of this, he took 1 a couple days ago, and it did not really have any significant effect. Now he has chest tightness that has been there all morning, he denies significant orthopnea but exertion takes quite a toll on him, he is very weak, he still has discomfort that is worse with light exertion and dyspnea as well. He has had no syncopal episodes. No significant changes in leg edema. No cough or fevers. [facility] Medical History Acute blood loss anemia Anemia Arthritis Atherosclerosis of coronary artery of [place] heart with angina pectoris BPH (benign prostatic hyperplasia) Bruising Cancer Carotid artery disease Chronic systolic (congestive) heart failure Constipation DDD (degenerative disc disease) Essential (primary) hypertension GERD (gastroesophageal reflux disease) Hematuria Hiatal hernia History of non-ST elevation myocardial infarction (NSTEMI) (12/27/21) HLD (hyperlipidemia) Irregular heart beat Ischemic cardiomyopathy Left bundle branch block (LBBB) Left carotid artery stenosis Male hypogonadism [place] (myocardial infarction) Non-smoker Nonsustained ventricular tachycardia 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 infarction Pacemaker Paroxysmal atrial fibrillation Polycythemia Secondary pulmonary arterial hypertension Segmental and somatic dysfunction of pelvic region Segmental and somatic dysfunction of thoracic region Shortness of breath on exertion Sinus drainage TIA (transient ischemic attack) Wears dentures Wears glasses Home Medications pantoprazole 40 mg tablet,delayed release 40 mg PO DAILY ACID REFLUX 10/29/16 [History Last Taken 08/13/19] nitroglycerin 0.4 mg sublingual tablet 0.4 mg sublingual Q5-15M PRN chest pain #25 tabs 07/22/20 [Rx Last Taken Unknown] acetaminophen 325 mg capsule 325 mg PO Q6H PRN Pain 12/10/20 [History Last Taken Unknown] fluticasone propionate 50 mcg/actuation nasal spray,suspension 2 spray intranasal DAILY allergies 08/09/21 [History Last Taken Unknown] sacubitril 24 mg-valsartan 26 mg tablet (Entresto) 1 tab PO BID #60 tabs 09/14/21 [Rx Last Taken Unknown] rivaroxaban 20 mg tablet (Xarelto) 20 mg PO QPM STOP ELIQUIS and start Xarelto on 10/22/21 #30 tabs 10/21/21 [Rx Last Taken Unknown] carvedilol 6.25 mg tablet 6.25 mg PO .COMPLEX #90 tabs 12/24/21 [Rx Last Taken Unknown] furosemide 40 mg tablet (Lasix) 40 mg PO DAILY PRN edema #90 tabs 01/17/22 [Rx Last Taken Unknown] clopidogrel 75 mg tablet (Plavix) 75 mg PO DAILY blood thinner #90 tabs 05/10/22 [Rx Last Taken Unknown] Allergy/AdvReac Type Severity Reaction Status Date / Time hydrochlorothiazide Allergy Severe Severe Verified 09/26/22 07:05 itching rash promethazine [From Phenergan] Allergy Other Verified 09/26/22 07:05 apixaban [From Eliquis] AdvReac Severe All over Verified 09/26/22 07:05 itching and rash ranolazine [From Ranexa] AdvReac Severe Rash Verified 09/26/22 07:05 omeprazole AdvReac Unknown Verified 09/26/22 07:05 Phenothiazines AdvReac Unknown Verified 09/26/22 07:05 Rgnwvlo-QXL-FpQ Reductase AdvReac myalgias Verified 09/26/22 07:05 Inhibitor [Deedzpv-Xfn-Umj Reductase Inhibitor] PHENEGRANZOLE AdvReac Unknown Uncoded 09/26/22 07:05 Family History Father , Age 37 from [place] CAD (coronary artery disease) Myocardial infarction Sudden cardiac Mother , age 96 Diabetes Surgical History History of appendectomy History of cataract surgery History of coronary artery stent placement (04/19/21) History of electrophysiologic study (2009) History of hernia repair History of implantable cardiac defibrillator (ICD) (05/17/10) History of intraocular lens implant History of left heart catheterization (08/09/21) History of transurethral resection of prostate (12/16/20) Social History Smoking Status: Never smoker alcohol intake: never substance use type: does not use caffeine: Yes Type: carbonated beverages Number of servings: 1 and coffee Number of servings: 1 what type of physical activity do you participate in: none ROS ROS ED Constitutional Constitutional ED: Reports fatigue and malaise; Denies body ache(s), chills or fever(s) Eyes Eyes: Denies change in vision or diplopia ENT ENT ED: Denies rhinorrhea or sore throat Cardiovascular Cardiovascular: Reports as per HPI and chest pain; Denies palpitations Respiratory/Chest Respiratory/Chest: Reports dyspnea and dyspnea on exertion; Denies cough Gastrointestinal Gastrointestinal: Denies abdominal pain, diarrhea, nausea or vomiting Genitourinary Genitourinary ED: Denies dysuria or hematuria Musculoskeletal Musculoskeletal: Denies back pain or neck pain Integumentary Denies abscess or rash Neurologic Neurologic: Denies headache(s), paresthesias or weakness Psychiatric Psychiatric: Denies anxiety or suicidal thoughts EXAM Physical Exam Const Vital Signs: 09/26/22 07:03 09/26/22 07:12 09/26/22 07:12 Temperature 97.5 F L Temperature Source Temporal Pulse Rate 97 Respiratory Rate 20 H Respiratory Effort Respiratory Pattern Blood Pressure 152/93 H Blood Pressure Mean 112 Pulse Ox 91 88 92 Oxygen Delivery Method Room Air Room Air Nasal Cannula Oxygen Flow Rate (L/min) 2 09/26/22 07:15 09/26/22 08:14 09/26/22 08:08 Temperature Temperature Source Pulse Rate 77 88 Respiratory Rate 18 20 H Respiratory Effort Normal Respiratory Pattern Normal Blood Pressure 138/66 H Blood Pressure Mean 90 Pulse Ox 92 Oxygen Delivery Method Nasal Cannula Oxygen Flow Rate (L/min) 2 09/26/22 09:24 Temperature Temperature Source Pulse Rate 79 Respiratory Rate 18 Respiratory Effort Respiratory Pattern Blood Pressure 133/73 H Blood Pressure Mean 93 Pulse Ox 92 Oxygen Delivery Method Oxygen Flow Rate (L/min) Positive well nourished and well developed Constitutional Narrative: Appears malaised but alert. General Appearance ED: well developed and NAD HEENT Reports moist mucous membranes normocephalic and atraumatic Eyes PERRL and EOMs intact bilaterally Neck full ROM and supple Resp Resp Narrative: Able to speak in full sentences but mildly tachypneic. Bibasilar rhonchi, worse on the right, with wheezes on the left as you approach the apex. Trachea midline. Generally equal breath sounds bilaterally. Cardio regular rate and regular rhythm Rate: other Other Details: Occasionally irregular. Difficult to appreciate presence or absence of murmurs due to pulmonary sounds and tachypnea. GI non-tender and non-distended Auscultation: normoactive bowel sounds Palpation: soft Back/Spine no CVA tenderness General Back: other FROM Extremity normal to inspection General Extremety ED: Yes edema; Negative for pulses abnormal or tenderness General Extremity: edema bilateral lower extremity Details: trace; Negative for pulses abnormal Neuro oriented x3, CN's II-XII intact bilaterally and no sensory deficits noted Sensorium / Orientation: awake and alert Motor Exam: strength 5/5 throughout Skin no rashes or lesions noted and no wounds Heart Score History: Highly Suspicious ECG: Nonspecific Repolarization Age: >/= 65 years Risk Factors: >/= 3 Risk Factors or History of CAD Troponin: >1 - <3 Normal Limit Score: 8 MDM MDM MDM Narrative Medical decision making narrative: Clinically, my concern is for acute on chronic congestive heart failure. The work-up supports that. He has been having exertional chest discomfort as well, the patient has many stents, including 2 that were placed within the past 1.5 years. He does not have acute renal failure and his troponin is elevated, I am not able to rule out acute coronary syndrome, but it is also possible that this may be due to strain/acute on chronic congestive heart failure. He was hypoxic here at 88% on room air, we have him on a 2 L nasal cannula and after Lasix 40 mg, he has urinated quite a bit, states he is breathing better at rest, his chest tightness is improved, and he is saturating and conversing well on a 2 L cannula. Chest x-ray 1 view on my interpretation consistent with congestive heart failure, radiology in agreement. No acute injury pattern on the EKG. Plan is for admission. Outside report reviewed: Echocardiogram from [facility], 04/18/2021, showing ejection fraction 29%, severely reduced systolic function, and moderate mitral regurgitation with mild aortic regurgitation, no aortic stenosis. Discussed with hospitalist for PCU admission. Lab Data Attestation: I reviewed the patient's lab results. Labs: Laboratory Results - last 24 hr 09/26/22 09/26/22 09/26/22 07:13 07:13 07:13 WBC 9.1 RBC 4.04 L Hgb 12.0 L Hct 38.7 L MCV 95.8 H MCH 29.7 MCHC 31.0 L RDW Std Deviation 50.2 H RDW Coeff of Dane 14.3 Plt Count 227 MPV 13.7 H Immature Gran % (Auto) 0.500 Neut % (Auto) 84.7 H Lymph % (Auto) 11.1 L [place] % (Auto) 3.6 Eos % (Auto) 0.0 Baso % (Auto) 0.1 Absolute Neuts (auto) 7.7 Absolute Lymphs (auto) 1.01 Nucleated RBC % 0 Sodium 141 Potassium 3.5 Chloride 106 Carbon Dioxide 29.0 Anion Gap 6 BUN 32 H Creatinine 1.24 Estim Creat Clear Calc 44.15 Est GFR (MDRD) Af Amer 71 Est GFR (MDRD) Non-Af 59 L BUN/Creatinine Ratio 25.8 H Glucose 140 H Calcium 9.2 Troponin I High Sens 152 H* B-Natriuretic Peptide 2637.9 H Radiography Diagnostic Testing: Clinical Impression(s) from Imaging Studies Chest X-Ray 09/26/22 07:50 IMPRESSION: Findings suggest a mild degree of CHF with superimposed bibasilar atelectasis and basilar scarring worse on the left lung base with blunting of the left costophrenic angle. Electronically Signed: Xander Flynn MD at 9:10 EST Reading Location ID and State: [address] [place] [address] , Service support , Rhythm Strip Rhythm Strip: Sinus Rhythm Rate: 95 Ectopy: None EKG Initial EKG: Attestation: I personally reviewed and interpreted this EKG as follows: Interpretation: Sinus Rhythm and No Acute Injury Pattern Comments: Intermittent pacing versus LBBB with PVCs; the latter more likely after comparison with prior EKG morphology Prior EKG tracings: available for review Prior: Unchanged Discharge Plan Dx/Rx/DC Orders Clinical Impression: Acute on chronic systolic (congestive) heart failure, Hypoxemia, Chest pain, Elevated troponin Disposition Disposition: [facility]
[2022-09-26] MEDS: Albuterol 2.5 MG/3 ML VIAL.NEB. INHALATION (08:08)
[2022-09-26 08:13] LABS: Absolute Lymphocyte Count 1.01 X10^3/uL (0.83-4.51); Absolute Neutrophil Count 7.7 X10^3/uL (2.0-7.7); Basophil# 0.01 X10^3/uL; Basophil% 0.1 % (0-1); Hematocrit 38.7 % (40-54); Lymphocyte # 1.01 X10^3/ul (0.83-4.51); Lymphocyte % 11.1 % (19-41); Mean Corpuscular Hgb 29.7 pg (27.0-32.0); Mean Corpuscular Volume 95.8 fL (80-94); Mean Platelet Vol. 13.7 fl (6.2-12.0); Monocyte# 0.33 X10^3/uL; Monocyte% 3.6 % (0-10); NRBC Flagged by Analyzer 0 % (0-5); Neutrophil # 7.71 X10^3/uL (2.7-7.7); Neutrophil % 84.7 % (47-70); Platelet Count 227 K/mm3 (150-450); RBC Distribution Width CV 14.3 % (11.6-14.6); RBC Distribution Width SD 50.2 fl (35.1-43.9); Red Blood Count 4.04 M/mm3 (4.6-6.2); White Blood Count 9.1 K/mm3 (4.4-11.0)
[2022-09-26] MEDS: Furosemide 40 MG/4 ML Vial IV ×2 (08:13→18:15)
[2022-09-26 08:36] LABS: Anion Gap 6 (5-15); BUN 32 mg/dL (7-18); BUN/Creat Ratio 25.8 RATIO (10-20); Calcium,Total 9.2 mg/dL (8.5-10.1); Chloride 106 mmol/L (98-107); Creatinine, Serum 1.24 mg/dL (0.70-1.30); EST Glomerular Filtration Rate 59 mL/min (>60); Est Glom Filt Rate - Afr Amer 71 mL/min (>60); Estimated Creatinine Clearance 44.15 ml/min; Glucose 140 mg/dL (74-106); Potassium 3.5 mmol/L (3.5-5.1); Sodium Level 141 mmol/L (136-145); Troponin-I HS 152 pg/mL (3.0-78.0)
[2022-09-26 08:43] LABS: BNP,B-Type NATRIURETIC PEPTIDE 2637.9 pg/mL (0-100)
--- NOTE | 2022-09-26 10:41 | HP.PCM.HOS_ITS ---
HPI - General General Date of Admission: 09/26/22 Date of Service: 09/26/22 Chief Complaint: Chest pain HPI Narrative FLEX GARCIA, is a 87 M who presents for 3 days of intermittent chest pain. Chest pain is left-sided going up his neck. Is intermittent not brought on by exertion. Patient had similar presentation to heart attack he had back in April 2021 where he had 3 vessel disease requiring stents. Did have some shortness of breath but that is currently better. Does have a history of cardiomyopathy and heart failure but has put on about 1 pound recently. Patient's , who is present at bedside, states that she weighs him daily and he is only put on 1 pound. He denies any lower extremity edema. Currently, he feels well. 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 pectoris BPH (benign prostatic hyperplasia) Bruising Cancer Carotid artery disease Chronic systolic (congestive) heart failure Constipation DDD (degenerative disc disease) Essential (primary) hypertension GERD (gastroesophageal reflux disease) Hematuria Hiatal hernia History of non-ST elevation myocardial infarction (NSTEMI) (12/27/21) HLD (hyperlipidemia) Irregular heart beat Ischemic cardiomyopathy Left bundle branch block (LBBB) Left carotid artery stenosis Male hypogonadism [place] (myocardial infarction) Non-smoker Nonsustained ventricular tachycardia 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 infarction Pacemaker Paroxysmal atrial fibrillation Polycythemia Secondary pulmonary arterial hypertension Segmental and somatic dysfunction of pelvic region Segmental and somatic dysfunction of thoracic region Shortness of breath on exertion Sinus drainage TIA (transient ischemic attack) Wears dentures Wears glasses Home Medications pantoprazole 40 mg tablet,delayed release 40 mg PO DAILY ACID REFLUX 10/29/16 [History Last Taken 09/25/22] nitroglycerin 0.4 mg sublingual tablet 0.4 mg sublingual Q5-15M PRN chest pain #25 tabs 07/22/20 [Rx Last Taken 09/24/22] fluticasone propionate 50 mcg/actuation nasal spray,suspension 2 spray intranasal DAILY PRN NASAL DECONGESTION 08/09/21 [History Last Taken Unknown] carvedilol 6.25 mg tablet 6.25 mg PO DAILY HEART 09/26/22 [History Last Taken 09/25/22] clopidogrel 75 mg tablet (Plavix) 75 mg PO DAILY BLOOD THINNER 09/26/22 [History Last Taken 09/25/22] fluconazole 150 mg tablet 150 mg PO TH ANTIFUNGAL 09/26/22 [History Last Taken 09/22/22] furosemide 40 mg tablet (Lasix) 40 mg PO DAILY PRN FLUID 09/26/22 [History Last Taken 09/24/22] levocetirizine 5 mg tablet 5 mg PO DAILY SKIN 09/26/22 [History Last Taken 09/25/22] prednisone 10 mg tablet See Taper PO UD STEROID 09/26/22 [History Last Taken 09/25/22] rivaroxaban 20 mg tablet (Xarelto) 20 mg PO QPM BLOOD THINNER 09/26/22 [History Last Taken 09/25/22] sacubitril 24 mg-valsartan 26 mg tablet (Entresto) 1 tab PO BID HEART FAILURE 09/26/22 [History Last Taken 09/25/22] Allergy/AdvReac Type Severity Reaction Status Date / Time hydrochlorothiazide Allergy Severe Severe Verified 09/26/22 07:05 itching rash promethazine [From Phenergan] Allergy Other Verified 09/26/22 07:05 apixaban [From Eliquis] AdvReac Severe All over Verified 09/26/22 07:05 itching and rash ranolazine [From Ranexa] AdvReac Severe Rash Verified 09/26/22 07:05 omeprazole AdvReac Unknown Verified 09/26/22 07:05 Phenothiazines AdvReac Unknown Verified 09/26/22 07:05 Toauxwb-ERN-[id number] Reductase AdvReac myalgias Verified 09/26/22 07:05 Inhibitor [Necuxgz-Frp-Esr Reductase Inhibitor] PHENEGRANZOLE AdvReac Unknown Uncoded 09/26/22 07:05 Family History Father , Age 37 from [place] CAD (coronary artery disease) Myocardial infarction Sudden cardiac Mother , age 96 Diabetes Surgical History History of appendectomy History of cataract surgery History of coronary artery stent placement (04/19/21) History of electrophysiologic study (2009) History of hernia repair History of implantable cardiac defibrillator (ICD) (05/17/10) History of intraocular lens implant History of left heart catheterization (08/09/21) History of transurethral resection of prostate (12/16/20) Social History Smoking Status: Never smoker alcohol intake: never substance use type: does not use caffeine: Yes Type: carbonated beverages Number of servings: 1 and coffee Number of servings: 1 what type of physical activity do you participate in: none ROS ROS Narrative Does get issues with reflux but this does feel somewhat different than his reflux symptoms. All review of systems were negative except as mentioned above in the history of present illness and the other review of systems. Vital Signs Vital Signs Vital Signs: 09/26/22 07:03 09/26/22 07:12 09/26/22 07:12 Temperature 36.4 C L Temperature Source Temporal Pulse Rate 97 Respiratory Rate 20 H Respiratory Effort Respiratory Pattern Blood Pressure 152/93 H Blood Pressure Mean 112 Pulse Ox 91 88 92 Oxygen Delivery Method Room Air Room Air Nasal Cannula Oxygen Flow Rate (L/min) 2 09/26/22 07:15 09/26/22 08:14 09/26/22 08:08 Temperature Temperature Source Pulse Rate 77 88 Respiratory Rate 18 20 H Respiratory Effort Normal Respiratory Pattern Normal Blood Pressure 138/66 H Blood Pressure Mean 90 Pulse Ox 92 Oxygen Delivery Method Nasal Cannula Oxygen Flow Rate (L/min) 2 09/26/22 09:24 09/26/22 10:11 Temperature Temperature Source Pulse Rate 79 74 Respiratory Rate 18 18 Respiratory Effort Respiratory Pattern Blood Pressure 133/73 H 137/74 H Blood Pressure Mean 93 95 Pulse Ox 92 92 Oxygen Delivery Method Nasal Cannula Oxygen Flow Rate (L/min) 2 Weight Weight: 77.111 kg Body Mass Index (BMI) 24.3 Physical Exam Narrative - Physical Exam General: Alert, Oriented x3, Cooperative HEENT: Atraumatic, PERRLA, EOMI, Normocephalic Oral: Moist Mucosa, No Gingival or Mucosal Lesions/ Ulcerations Neck: Supple, No JVD, Negative Carotid Bruits Lungs: Normal air movement bibasilar crackles. Cardiovascular: Regular rate, Normal S1, Normal S2, No murmurs Abdomen: Bowel Sounds Present, Soft, Non Tender, Non-Distended, No Hepato- splenomegaly Extremities: No clubbing, No cyanosis, No edema, Capillary Refill Less than 3 Seconds Skin: No rashes, No breakdown Musculoskeletal: No Tenderness to Palpation of Joints or Extremities Neurological: Neuro grossly intact Psych/Mental Status: Normal Affect, Appropriate Results Lab / Micro Data Attestation: I reviewed the patient's lab results. Lab results narrative: Chest x-ray reviewed and showed some faint pulmonary vascular congestion. Result Diagrams: 09/26/22 07:13 09/26/22 07:13 Labs: Laboratory Results - last 24 hr 09/26/22 07:13: WBC 9.1, RBC 4.04 L, Hgb 12.0 L, Hct 38.7 L, MCV 95.8 H, MCH 29.7, MCHC 31.0 L, RDW Std Deviation 50.2 H, RDW Coeff of Dane 14.3, Plt Count 227, MPV 13.7 H, Immature Gran % (Auto) 0.500, Neut % (Auto) 84.7 H, Lymph % (Auto) 11.1 L, [place] % (Auto) 3.6, Eos % (Auto) 0.0, Baso % (Auto) 0.1, Absolute Neuts (auto) 7.7, Absolute Lymphs (auto) 1.01, Nucleated RBC % 0 09/26/22 07:13: Sodium 141, Potassium 3.5, Chloride 106, Carbon Dioxide 29.0, Anion Gap 6, BUN 32 H, Creatinine 1.24, Estim Creat Clear Calc 44.15, Est GFR (MDRD) Af Amer 71, Est GFR (MDRD) Non-Af 59 L, BUN/Creatinine Ratio 25.8 H, Glucose 140 H, Calcium 9.2, Troponin I High Sens 152 H* 09/26/22 07:13: B-Natriuretic Peptide 2637.9 H Rhythm Strip Rhythm Strip: Sinus Rhythm Rate: 95 Ectopy: None EKG Initial EKG: Attestation: I personally reviewed and interpreted this EKG as follows: Prior EKG tracings: available for review EKG Rhythm Intrepretation: Sinus Rhythm (Left bundle branch block) Radiology Impression Chest X-Ray 09/26/22 07:50 IMPRESSION: Findings suggest a mild degree of CHF with superimposed bibasilar atelectasis and basilar scarring worse on the left lung base with blunting of the left costophrenic angle. Electronically Signed: Xander Flynn MD at 9:10 EST , Assessment & Plan Assessment/Plan (1) Acute on chronic systolic (congestive) heart failure: PLAN: Heart failure with reduced ejection fraction EF 15 to 20% from 2D echocardiogram 04/18/2021 is very diligent in checking his weight and states that he is only put on 1 pound recently. Clinically does not appear to be volume overloaded though he does have some crackles in his bases. Hold off on his oral Lasix and guide changer to 40 mg IV twice daily. Continue with carvedilol 6.25 mg daily, Entresto (2) Unstable angina: PLAN: Troponins are slightly elevated though could be skewed elevated given his history of ischemic cardiomyopathy Patient already anticoagulated on rivaroxaban Consult cardiology. Case discussed with Dr. Lawrence, who will see the patient in consultation History of myalgias with statins, so we will hold. Aspirin PLAN: Plan Chronic conditions * Seizures: Continue levetiracetam * Status post pacemaker and ICD: Patient to have his battery changed out in the coming months. He inquired about having changed over during this admission. Told him that that would not occur as appears to be functioning properly at this time. That would have to be done at the previously scheduled time. * Hypertension: Stable. VTE prophylaxis: Low risk as patient is already anticoagulated CODE STATUS: Addressed with the patient. Patient is full CODE STATUS.
--- NOTE | 2022-09-26 13:30 | NURSING ---
Pt refusing to put on fall risk band at this time.
[2022-09-26] MEDS: predniSONE 10 MG Tablet PO (14:13)
--- NOTE | 2022-09-26 14:20 | CASEMGMT ---
RN CM Face to Face with patient for initial transition planning/care coordination assessment. RN CM introduced self and role at [facility]. Patient lying in bed, alert and oriented. Patient willing to participate in assessment and is able to answer all questions appropriately. Care providers, pharmacy, and demographics verified. Patient wishes to discharge home, denies need for home health at this time. Patient states he has no further needs or concerns at this time. CM to follow for discharge planning needs that may arise. PCP: Jean Specialists: Howard litigation paralegal Preferred Pharmacy: [facility] retail Insurance: [employer] Prescription Benefit: yes Living Will/HPOA: yes, Mary Solis LNOK: , son Living Arrangements: Patient lives with in a single story home with 3 steps and railing to enter the home. Patient states he is independent at home. Transportation: self, DME/HHC: Patient states he has raised toilet and cane at home. No previous HHC or SNF. Disposition Plan: Patient to discharge home with family support and follow-up plans in place. Yuliya BELTRE, RN, CM
[2022-09-26 16:04] LABS: Troponin-I HS 2669 pg/mL (3.0-78.0)
[2022-09-26] MEDS: Rivaroxaban 20 MG Tablet PO (18:15)
--- NOTE | 2022-09-26 18:33 | PCM.CONS.C ---
Assessment & Plan Assessment/Plan (1) Unstable angina: (2) History of non-ST elevation myocardial infarction (NSTEMI): PLAN: He has minimally elevated troponin levels. He underwent a cardiac catheterization a year ago. At this juncture with his cardiomyopathy I will suggest that we obtain a pharmacologic myocardial perfusion stress test. Unless there is a significant amount of ischemia I would recommend continued medical therapy. (3) History of implantable cardiac defibrillator (ICD): PLAN: He does have an implantable defibrillator placed. He will continue to follow-up in our device clinic. I would not make any major changes. (4) Ischemic cardiomyopathy: PLAN: He does have evidence of an ischemic cardiomyopathy with reduced left ventricular systolic function. My recommendation is to continue him on the same medications at this time. As you know he has been intolerant of many medications. (5) Acute on chronic systolic (congestive) heart failure: PLAN: We will continue to adjust his diuretic dose and see how he does over time. (6) Atrial fibrillation: PLAN: He does have a history of atrial fibrillation and is anticoagulated. The plan will be to continue him on the same medications. He will remain on his beta-suha as well as his anticoagulation. As you remember he has not tolerated sotalol or amiodarone in the past. Thank you for allowing me to participate in the care of your patient. Please don't hesitate to call if any issues arise. HPI Consult Data Date of Consult: 09/26/22 HPI Narrative HPI Narrative: FLEX GARCIA, is a 87 M who presents with shortness of breath to the emergency room as well as mild chest discomfort. He says that this was unresponsive to 2 sublingual nitroglycerin. He has an extensive cardiac history as well as multiple visits to the hospital. Briefly, he has a history of coronary artery disease with stenting and angioplasty to his RCA, LAD and circumflex.? He also has a history of ischemic cardiomyopathy with prophylactic ICD placed. In 2015 he had a heart catheterization which demonstrated a long area of 95% stenosis of the distal LAD, RCA was previously stented and patent, circumflex patent.? Viability demonstrated no viability in the anterior anteroseptal and apical varghese medical management was recommended.? Patient had a stress test in October 2016 which demonstrated previous extensive anterior apical infarct, basal inferior infarct, inferolateral infarct with no ischemia.? He had a NSTEMI in 04/2018 and underwent angioplasty and stenting of the proximal mid and distal left anterior descending artery.? He had a 2.5 x 38 mm X science stent followed by 3.0 x 23 mm stent and a 2.0 x 30 mm stent.? The circumflex artery was apparently left untouched.? He presented again in September 2019 with shortness of breath and a non-ST elevation myocardial infarction.? Cardiac catheterization demonstrated disease noted involving the proximal left circumflex artery.? Left anterior descending artery was also severely diseased but had previously shown evidence of non-viability in the LAD territory.? He underwent successful PCI of a 70% diffuse mid left circumflex stenosis with a 3.5 x 30 mm resolute drug-eluting gabrielle stent.? There was also successful PCI of the? distal left main coronary artery of approximately 70% with a 5.0 x 22 mm resolute [place] stent. In January of 2020,? He underwent a heart catheterization which demonstrated triple-vessel disease, stents patent in the left main, circumflex and proximal mid RCA.? Distal disease was noted in his LAD with total occlusion of mid segment and moderate disease in previously placed stents.? Medical therapy was recommended.? And his sotalol was discontinued because of his complaints of significant fatigue and metoprolol was added.? He was also continued on his Plavix as well as his aspirin and isosorbide.? He sometimes does not tolerate isosorbide because of headaches.? He did not tolerate Ranexa.? He presented to the hospital in November 2020 with chest discomfort and at that time was admitted and underwent a cardiac catheterization which demonstrated that his left main stent was patent, his left anterior descending artery was subtotally occluded, his left circumflex artery was patent with moderate in-stent stenosis, his right coronary artery with a previously placed stent was patent with no high-grade stenosis in the ostium of the PDA had a 40 to 50% stenosis.? Medical therapy was recommended.? While I was away on vacation who presented again in December 2020 with chest discomfort underwent cardiac catheterization which was essentially unchanged and medical therapy was recommended. He apparently presented to the emergency room at [facility] on April 15 with chest pain and shortness of breath and weakness was evaluated and discharged home the following day.? On 04/17 he presented again to the emergency room at [facility] the hospital with shortness of breath was transferred to [facility].? He underwent an echocardiographic evaluation which demonstrated an ejection fraction of 15 to 20% with akinesis of the anterior wall anterior septal wall severe hypokinesis of the lateral wall and inferior wall.? The apex was also noted to be akinetic.? He underwent cardiac catheterization which demonstrated a left main coronary artery with a 60% stenosis, ostial LAD lesion with a 90% stenosis and a 90% in-stent stenosis, the left circumflex artery had a mid and distal segments which were patent the right coronary artery had a patent prior stent in the proximal RCA and a patent stent in the proximal RCA and a 50% proximal stenosis.? The PDA had a 50% stenosis.? This was apparently discussed with the cardiac surgeons but it was thought that he was too high risk.? He therefore underwent staged intervention of the left anterior descending artery with a 90% stenosis in the distal LAD for which he underwent balloon angioplasty, the 90% proximal LAD had a stent placed and he also underwent balloon angioplasty of the proximal left circumflex artery.? And had to the emergency room again on 04/28 with hypotension and had his medications adjusted. Patient was admitted to [facility] in August 2021 for chest pressure.? He underwent a heart catheterization on 08/09/2021 that showed triple-vessel disease with previously stented left main, LAD, left circumflex artery, and RCA which is noted be patent with no high-grade areas noted.? Ejection fraction was reported at 15%.? He was started on Norvasc for angina, Lasix, and Entresto.? His amlodipine was discontinued and his Lasix was changed to as needed on account of hypotension. On 12/25/2021 patient presented to the emergency room after 2 days of dyspnea with exertion and chest tightness.? He was admitted to the hospital for congestive heart failure, his BNP was 1685. He was diuresed with Lasix. While in the hospital, he had paroxysmal ventricular tachycardia that was monomorphic in nature.? He was mildly symptomatic with some lightheadedness. He was evaluated by cardiology and initially the balance staff staker was thinking of initiating him on sotalol versus amiodarone, however the patient has not tolerated amiodarone or sotalol in the past and has been sensitive to multiple medications.? He had not had any significant dizziness or syncope with this and it has been problematic for several months, the decision was made to continue his current medical regimen, and not add further medications as appears the risk is greater than the benefit of initiation.? He has been fairly stable for a few months and continues to follow-up in the office as well as in the device clinic. [facility] Medical History Acute blood loss anemia Anemia Arthritis Atherosclerosis of coronary artery of [place] heart with angina pectoris BPH (benign prostatic hyperplasia) Bruising Cancer Carotid artery disease Chronic systolic (congestive) heart failure Constipation DDD (degenerative disc disease) Essential (primary) hypertension GERD (gastroesophageal reflux disease) Hematuria Hiatal hernia History of non-ST elevation myocardial infarction (NSTEMI) (12/27/21) HLD (hyperlipidemia) Irregular heart beat Ischemic cardiomyopathy Left bundle branch block (LBBB) Left carotid artery stenosis Male hypogonadism DC (myocardial infarction) Non-smoker Nonsustained ventricular tachycardia 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 infarction Pacemaker Paroxysmal atrial fibrillation Polycythemia Secondary pulmonary arterial hypertension Segmental and somatic dysfunction of pelvic region Segmental and somatic dysfunction of thoracic region Shortness of breath on exertion Sinus drainage TIA (transient ischemic attack) Wears dentures Wears glasses Home Medications pantoprazole 40 mg tablet,delayed release 40 mg PO DAILY ACID REFLUX 10/29/16 [History Last Taken 09/25/22] nitroglycerin 0.4 mg sublingual tablet 0.4 mg sublingual Q5-15M PRN chest pain #25 tabs 07/22/20 [Rx Last Taken 09/24/22] fluticasone propionate 50 mcg/actuation nasal spray,suspension 2 spray intranasal DAILY PRN NASAL DECONGESTION 08/09/21 [History Last Taken Unknown] carvedilol 3.125 mg tablet 3.125 mg PO DAILY heart 09/26/22 [History Last Taken 09/25/22] carvedilol 6.25 mg tablet 6.25 mg PO DAILY HEART 09/26/22 [History Last Taken 09/25/22] clopidogrel 75 mg tablet (Plavix) 75 mg PO DAILY BLOOD THINNER 09/26/22 [History Last Taken 09/25/22] fluconazole 150 mg tablet 150 mg PO TH ANTIFUNGAL 09/26/22 [History Last Taken 09/22/22] furosemide 40 mg tablet (Lasix) 40 mg PO DAILY PRN FLUID 09/26/22 [History Last Taken 09/24/22] levocetirizine 5 mg tablet 5 mg PO DAILY SKIN 09/26/22 [History Last Taken 09/25/22] prednisone 10 mg tablet See Taper PO UD STEROID 09/26/22 [History Last Taken 09/25/22] rivaroxaban 20 mg tablet (Xarelto) 20 mg PO QPM BLOOD THINNER 09/26/22 [History Last Taken 09/25/22] sacubitril 24 mg-valsartan 26 mg tablet (Entresto) 1 tab PO BID HEART FAILURE 09/26/22 [History Last Taken 09/25/22] Allergy/AdvReac Type Severity Reaction Status Date / Time hydrochlorothiazide Allergy Severe Severe Verified 09/26/22 07:05 itching rash promethazine [From Phenergan] Allergy Other Verified 09/26/22 07:05 apixaban [From Eliquis] AdvReac Severe All over Verified 09/26/22 07:05 itching and rash ranolazine [From Ranexa] AdvReac Severe Rash Verified 09/26/22 07:05 omeprazole AdvReac Unknown Verified 09/26/22 07:05 Phenothiazines AdvReac Unknown Verified 09/26/22 07:05 Brbfaor-IEY-RrV Reductase AdvReac myalgias Verified 09/26/22 07:05 Inhibitor [Xdwltsi-Khz-Dqk Reductase Inhibitor] PHENEGRANZOLE AdvReac Unknown Uncoded 09/26/22 07:05 Family History Father , Age 37 from [place] CAD (coronary artery disease) Myocardial infarction Sudden cardiac Mother , age 96 Diabetes Surgical History History of appendectomy History of cataract surgery History of coronary artery stent placement (04/19/21) History of electrophysiologic study (2009) History of hernia repair History of implantable cardiac defibrillator (ICD) (05/17/10) History of intraocular lens implant History of left heart catheterization (08/09/21) History of transurethral resection of prostate (12/16/20) Social History Smoking Status: Never smoker alcohol intake: never substance use type: does not use caffeine: Yes Type: carbonated beverages Number of servings: 1 and coffee Number of servings: 1 what type of physical activity do you participate in: none ROS Constitutional Constitutional: Denies fever(s) or weight loss Eyes Eyes: Reports systems reviewed and no addt'l complaints, except as documented ENT HEENT: Reports systems reviewed and no addt'l complaints, except as documented Cardiovascular Cardiovascular: Reports chest pain at rest, chest pain with activity, dyspnea at rest and dyspnea on exertion; Denies edema, palpitations or paroxysmal nocturnal dyspnea Respiratory/Chest Respiratory/Chest: Reports shortness of breath at rest and shortness of breath with exertion; Denies dyspnea on exertion or productive cough Gastrointestinal Gastrointestinal: Denies change in bowel habits, nausea, vomiting or weight changes Genitourinary Genitourinary: Denies difficulty urinating Musculoskeletal Musculoskeletal: Denies joint stiffness or muscle weakness Integumentary Integumentary: Denies lesions Neurologic Neurologic: Denies dizziness or syncope Psychiatric Psychiatric: Denies anxiety Endocrine Endocrinology: Denies excessive sweating or fatigue Hematologic/Lymphatic Hematologic/Lymphatic: Denies anemia Allergic/Immunologic Allergic/Immunologic: Denies seasonal rhinorrhea Physical Exam Const alert, oriented x3 and no apparent distress General Appearance: cooperative HEENT hearing grossly normal bilaterally Head and Scalp: atraumatic Eyes EOMs intact bilaterally Neck General: normal visual inspection Chest inspection of chest normal and palpation of chest normal Resp normal respiratory effort Auscultation: clear to auscultation bilaterally Cardio regular rate, regular rhythm, S1 normal heart sound and S2 normal heart sound Jugular Venous Distention: JVD GI normal to inspection, nondistended, normoactive bowel sounds Extremity normal capillary refill and no pedal edema Peripheral Pulses: Yes pulses 2+ throughout and femoral pulses present Skin no rashes or lesions noted Neuro oriented x3 and CN's II-XII intact bilaterally Psych Appearance: grossly normal and appropriate Risk Stratification Risk Stratification Applicable: Yes Age >/= 65: Yes >/= 3 CAD Risk Factors (HTN, HLD, DM, family hx of CAD, or current smoker): Yes Aspirin Use in the Past 7 Days: Yes Severe Angina (>/= episodes in 24 hours): No EKG ST Changes >/= 0.5mm: No Positive Cardiac Marker: Yes BASHIR Risk Stratification Score: 4 BASHIR % Risk: 20% Risk Objective Data Vital Signs: Vital Signs Temp Pulse Resp BP Pulse Ox O2 Del Method O2 Flow Rate 97.6 F L 80 18 131/71 H 98 Nasal Cannula 2 09/26/22 18:13 09/26/22 18:13 09/26/22 18:13 09/26/22 18:13 09/26/22 18:13 09/26/22 18:13 09/26/22 18:13 Oxygen Flow Rate (L/min) 2 Oxygen Delivery Method Nasal Cannula Weight: 169 lb 1.513 oz Body Mass Index (BMI) 24.3 Lab / Micro Data Result Diagrams: 09/26/22 07:13 09/26/22 07:13 Labs: Laboratory Results - last 24 hr 09/26/22 07:13: WBC 9.1, RBC 4.04 L, Hgb 12.0 L, Hct 38.7 L, MCV 95.8 H, MCH 29.7, MCHC 31.0 L, RDW Std Deviation 50.2 H, RDW Coeff of Dane 14.3, Plt Count 227, MPV 13.7 H, Immature Gran % (Auto) 0.500, Neut % (Auto) 84.7 H, Lymph % (Auto) 11.1 L, Luce % (Auto) 3.6, Eos % (Auto) 0.0, Baso % (Auto) 0.1, Absolute Neuts (auto) 7.7, Absolute Lymphs (auto) 1.01, Nucleated RBC % 0 09/26/22 07:13: Sodium 141, Potassium 3.5, Chloride 106, Carbon Dioxide 29.0, Anion Gap 6, BUN 32 H, Creatinine 1.24, Estim Creat Clear Calc 44.15, Est GFR (MDRD) Af Amer 71, Est GFR (MDRD) Non-Af 59 L, BUN/Creatinine Ratio 25.8 H, Glucose 140 H, Calcium 9.2, Troponin I High Sens 152 H* 09/26/22 07:13: B-Natriuretic Peptide 2637.9 H 09/26/22 14:02: Troponin I High Sens 2669 H* Rhythm Strip Rhythm Strip: Sinus Rhythm Rate: 95 Ectopy: None Cardiology Labs/Tests 09/26/22 07:13: WBC 9.1, RBC 4.04 L, Hgb 12.0 L, Hct 38.7 L, MCV 95.8 H, MCH 29.7, MCHC 31.0 L, Plt Count 227, MPV 13.7 H, Immature Gran % (Auto) 0.500, Neut % (Auto) 84.7 H, Lymph % (Auto) 11.1 L, Luce % (Auto) 3.6, Eos % (Auto) 0.0, Baso % (Auto) 0.1, Absolute Neuts (auto) 7.7, Nucleated RBC % 0 09/26/22 07:13: Sodium 141, Potassium 3.5, Chloride 106, Carbon Dioxide 29.0, Anion Gap 6, BUN 32 H, Creatinine 1.24, Est GFR (MDRD) Af Amer 71, Est GFR (MDRD) Non-Af 59 L, BUN/Creatinine Ratio 25.8 H, Glucose 140 H, Calcium 9.2 09/26/22 07:13: B-Natriuretic Peptide 2637.9 H Rhythm: EKG: ECHO: Stress Test: Cardiac Cath: PCI: CT Surgery: Holter monitor: EPS: PPM: CXR: Chest CT Scan: Radiography Diagnostic Testing: Radiology Impression Chest X-Ray 09/26/22 07:50 IMPRESSION: Findings suggest a mild degree of CHF with superimposed bibasilar atelectasis and basilar scarring worse on the left lung base with blunting of the left costophrenic angle. Electronically Signed: Xander Flynn MD at 9:10 EST ,
[2022-09-26 19:58] LABS: Troponin-I HS 4328 pg/mL (3.0-78.0)
[2022-09-26] MEDS: SACUBITRIL/VALSARTAN 24/26 MG TABLET 1 EACH PO (21:15)
[2022-09-27] VITALS (9 sets, daily range): BP systolic 116–145; BP diastolic 62–84; PULSE 62–89; RESP 16–18; TEMP 36.4–36.8; O2SAT 96–99; BMI 24.0
[2022-09-27 06:35] LABS: Anion Gap 8 (5-15); BUN 35 mg/dL (7-18); BUN/Creat Ratio 27.6 RATIO (10-20); Calcium,Total 8.5 mg/dL (8.5-10.1); Chloride 104 mmol/L (98-107); Creatinine, Serum 1.27 mg/dL (0.70-1.30); EST Glomerular Filtration Rate 57 mL/min (>60); Est Glom Filt Rate - Afr Amer 69 mL/min (>60); Estimated Creatinine Clearance 43.11 ml/min; Glucose 118 mg/dL (74-106); Potassium 3.2 mmol/L (3.5-5.1); Sodium Level 142 mmol/L (136-145)
--- NOTE | 2022-09-27 07:33 | PN.CARD_ITS ---
Subjective Subjective Patient seen and evaluated. Appears to be doing well well. Objective Data Vital Signs: Vital Signs Temp Pulse Resp BP Pulse Ox O2 Del Method O2 Flow Rate 97.5 F L 89 18 145/84 H 98 Nasal Cannula 2 09/27/22 05:20 09/27/22 05:20 09/27/22 05:20 09/27/22 05:20 09/27/22 05:20 09/27/22 05:20 09/27/22 05:20 Oxygen Flow Rate (L/min) 2 Oxygen Delivery Method Nasal Cannula Weight: 167 lb 15.876 oz Body Mass Index (BMI) 24.0 Intake & Output: Intake and Output for Last 24 Hours 09/25/22 09/26/22 09/27/22 23:59 23:59 23:59 Intake Total 660 / 660 240 / 240 Output Total 1100 / 1100 450 / 450 Balance -440 / -440 -210 / -210 Lab / Micro Data Result Diagrams: 09/26/22 07:13 09/27/22 04:58 Labs: Laboratory Results - last 24 hr 09/26/22 07:13: WBC 9.1, RBC 4.04 L, Hgb 12.0 L, Hct 38.7 L, MCV 95.8 H, MCH 29.7, MCHC 31.0 L, RDW Std Deviation 50.2 H, RDW Coeff of Dane 14.3, Plt Count 22 7, MPV 13.7 H, Immature Gran % (Auto) 0.500, Neut % (Auto) 84.7 H, Lymph % (Auto) 11.1 L, [place] % (Auto) 3.6, Eos % (Auto) 0.0, Baso % (Auto) 0.1, Absolute Neuts (auto) 7.7, Absolute Lymphs (auto) 1.01, Nucleated RBC % 0 09/26/22 07:13: Sodium 141, Potassium 3.5, Chloride 106, Carbon Dioxide 29.0, Anion Gap 6, BUN 32 H, Creatinine 1.24, Estim Creat Clear Calc 44.15, Est GFR (MDRD) Af Amer 71, Est GFR (MDRD) Non-Af 59 L, BUN/Creatinine Ratio 25.8 H, Glucose 140 H, Calcium 9.2, Troponin I High Sens 152 H* 09/26/22 07:13: B-Natriuretic Peptide 2637.9 H 09/26/22 14:02: Troponin I High Sens 2669 H* 09/26/22 19:30: Troponin I High Sens 4328 H* 09/27/22 04:58: Sodium 142, Potassium 3.2 L, Chloride 104, Carbon Dioxide 30.0, Anion Gap 8, BUN 35 H, Creatinine 1.27, Estim Creat Clear Calc 43.11, Est GFR (MDRD) Af Amer 69, Est GFR (MDRD) Non-Af 57 L, BUN/Creatinine Ratio 27.6 H, Glucose 118 H, Calcium 8.5 Rhythm Strip Rhythm Strip: Sinus Rhythm Rate: 95 Ectopy: None Cardiology Labs/Tests 09/26/22 07:13: WBC 9.1, RBC 4.04 L, Hgb 12.0 L, Hct 38.7 L, MCV 95.8 H, MCH 29.7, MCHC 31.0 L, Plt Count 227, MPV 13.7 H, Immature Gran % (Auto) 0.500, Neut % (Auto) 84.7 H, Lymph % (Auto) 11.1 L, [place] % (Auto) 3.6, Eos % (Auto) 0.0, Baso % (Auto) 0.1, Absolute Neuts (auto) 7.7, Nucleated RBC % 0 09/26/22 07:13: Sodium 141, Potassium 3.5, Chloride 106, Carbon Dioxide 29.0, Anion Gap 6, BUN 32 H, Creatinine 1.24, Est GFR (MDRD) Af Amer 71, Est GFR (MDRD) Non-Af 59 L, BUN/Creatinine Ratio 25.8 H, Glucose 140 H, Calcium 9.2 09/26/22 07:13: B-Natriuretic Peptide 2637.9 H 09/27/22 04:58: Sodium 142, Potassium 3.2 L, Chloride 104, Carbon Dioxide 30.0, Anion Gap 8, BUN 35 H, Creatinine 1.27, Est GFR (MDRD) Af Amer 69, Est GFR (MDRD) Non-Af 57 L, BUN/Creatinine Ratio 27.6 H, Glucose 118 H, Calcium 8.5 Rhythm: EKG: ECHO: Stress Test: Cardiac Cath: PCI: CT Surgery: Holter monitor: EPS: PPM: CXR: Chest CT Scan: Radiography Diagnostic Testing: Radiology Impression Chest X-Ray 09/26/22 07:50 IMPRESSION: Findings suggest a mild degree of CHF with superimposed bibasilar atelectasis and basilar scarring worse on the left lung base with blunting of the left costophrenic angle. Electronically Signed: Xander Flynn MD at 9:10 EST , Physical Exam Const alert, oriented x3 and no apparent distress General Appearance: cooperative HEENT hearing grossly normal bilaterally Head and Scalp: atraumatic Eyes EOMs intact bilaterally Neck General: normal visual inspection Chest inspection of chest normal and palpation of chest normal Resp normal respiratory effort Auscultation: clear to auscultation bilaterally Cardio regular rate, regular rhythm, S1 normal heart sound and S2 normal heart sound Jugular Venous Distention: JVD GI normal to inspection, nondistended, normoactive bowel sounds Extremity normal capillary refill and no pedal edema Peripheral Pulses: Yes pulses 2+ throughout and femoral pulses present Skin no rashes or lesions noted Neuro oriented x3 and CN's II-XII intact bilaterally Psych Appearance: grossly normal and appropriate Assessment & Plan Assessment/Plan (1) Unstable angina: (2) History of non-ST elevation myocardial infarction (NSTEMI): PLAN: His cardiac enzymes unfortunately went up rather high. He underwent a cardiac catheterization a year ago. Based on the above I will change the plan from a pharmacologic myocardial perfusion stress test to a left heart catheterization. Risk benefits alternatives have been explained to him he understands and agrees to proceed. Due to the fact that he was on an anticoagulant would hold off for 1 more day and would pursue the above on September 28. (3) History of implantable cardiac defibrillator (ICD): PLAN: He does have an implantable defibrillator placed. He will continue to follow-up in our device clinic. I would not make any major changes. (4) Ischemic cardiomyopathy: PLAN: He does have evidence of an ischemic cardiomyopathy with reduced left ventricular systolic function. My recommendation is to continue him on the same medications at this time. As you know he has been intolerant of many medications. (5) Acute on chronic systolic (congestive) heart failure: PLAN: We will continue to adjust his diuretic dose and see how he does over time. (6) Atrial fibrillation: PLAN: He does have a history of atrial fibrillation and is anticoagulated. The plan will be to continue him on the same medications. He will remain on his beta-suha as well as his anticoagulation. As you remember he has not tolerated sotalol or amiodarone in the past. Thank you for allowing me to participate in the care of your patient. Please don't hesitate to call if any issues arise.
--- NOTE | 2022-09-27 07:36 | ECHOD_ITS ---
Reason For Study: DYSPNEA Procedure This was a 2D Doppler, Color Flow transthoracic echocardiogram. Technically difficult study. Deifinty deferred due to pulmonary pressures. Exam performed portable in patient room. Left Ventricle Moderately dilated left ventricle. Severe segmental systolic dysfunction (see wall motion). The estimated ejection fraction is 15 %. [place] : Akinetic. Septal [place] : Aneurysmal. Right Ventricle Normal RV size. ICD or pacer leads identified within the right ventricle. Normal systolic function. Atria The left atrium is moderately enlarged. Normal right atrium. ICD or pacer leads identified within the right atrium. Mitral Valve Normal mitral valve. Tricuspid Valve Normal tricuspid valve. Moderate (2+) tricuspid valve insufficiency. Pulmonary artery systolic pressure is 76 mmHg. Severe pulmonary hypertension. Aortic Valve Trisinus/trileaflet aortic valve. Pulmonic Valve Normal pulmonic valve. Great Vessels Normal aortic root. Moderate pulmonary artery dilation. Pericardium/Pleural No pericardial effusion. MMode/2D Measurements & Calculations Ao root diam: 3.1 cm LA dimension(2D): 4.9 cm Time Measurements MV dec time: 0.13 sec Doppler Measurements & Calculations MV E max eben: 86.3 cm/sec Lat Peak E' Eben: 10.1 cm/sec Med Peak E' Eben: 5.0 cm/sec MV A max eben: 63.0 cm/sec E/E' lat: 8.6 E/E' med: 17.1 MV E/A: 1.4 MV V2 max: 106.8 cm/sec Ao V2 max: 100.4 cm/sec MV max P.6 mmHg MV dec slope: 695.0 cm/sec2 Ao max P.1 mmHg MV V2 mean: 59.5 cm/sec Ao V2 mean: 67.0 cm/sec MV mean P.7 mmHg Ao mean P.2 mmHg MV V2 VTI: 23.8 cm Ao V2 VTI: 19.3 cm AV (velocity ratio): 1.2 LV V1 max: 112.2 cm/sec PA V2 max: 104.1 cm/sec TR max eben: 420.8 cm/sec LV V1 max P.1 mmHg PA V2 mean: 66.1 cm/sec TR max P.8 mmHg LV V1 mean P.8 mmHg LV V1 mean: 77.5 cm/sec LV V1 VTI: 22.3 cm ECHO/Echo Complete Interpretation Summary Normal RV size. Moderately dilated left ventricle. Severe segmental systolic dysfunction (see wall motion). The estimated ejection fraction is 15 %. The left atrium is moderately enlarged. Pulmonary artery systolic pressure is 76 mmHg. Severe pulmonary hypertension. Ordering Physician: Roque Lawrence Referring Physician: Jacques Pena Chi Performed By: Lori Hernandez RCS
--- NOTE | 2022-09-27 08:01 | PN.HOSP_ITS ---
Reason for Visit Reason for Visit: Diagnoses Unstable angina (09/26/22) Old myocardial infarction (09/26/22) Ischemic cardiomyopathy (09/26/22) Unspecified atrial fibrillation (09/26/22) Acute on chronic systolic (congestive) heart failure (09/26/22) Presence of automatic (implantable) cardiac defibrillator (09/26/22) Subjective Subjective Feels well. No chest pain. No shortness of breath. Objective Data Objective Data Vital Signs: Vital Signs Temp Pulse Resp BP Pulse Ox O2 Del Method O2 Flow Rate 36.4 C L 89 18 145/84 H 98 Nasal Cannula 2 09/27/22 05:20 09/27/22 05:20 09/27/22 05:20 09/27/22 05:20 09/27/22 08:01 09/27/22 08:01 09/27/22 08:01 Oxygen Flow Rate (L/min) 2 Oxygen Delivery Method Nasal Cannula Weight: 76.2 kg Body Mass Index (BMI) 24.0 Intake & Output: Intake and Output for Last 24 Hours 09/25/22 09/26/22 09/27/22 23:59 23:59 23:59 Intake Total 660 / 660 240 / 240 Output Total 1100 / 1100 450 / 450 Balance -440 / -440 -210 / -210 Lab / Micro Data Result Diagrams: 09/26/22 07:13 09/27/22 04:58 Labs: Laboratory Results - last 24 hr 09/26/22 07:13: WBC 9.1, RBC 4.04 L, Hgb 12.0 L, Hct 38.7 L, MCV 95.8 H, MCH 29.7, MCHC 31.0 L, RDW Std Deviation 50.2 H, RDW Coeff of Dane 14.3, Plt Count 227, MPV 13.7 H, Immature Gran % (Auto) 0.500, Neut % (Auto) 84.7 H, Lymph % (Auto) 11.1 L, Slope % (Auto) 3.6, Eos % (Auto) 0.0, Baso % (Auto) 0.1, Absolute Neuts (auto) 7.7, Absolute Lymphs (auto) 1.01, Nucleated RBC % 0 09/26/22 07:13: Sodium 141, Potassium 3.5, Chloride 106, Carbon Dioxide 29.0, Anion Gap 6, BUN 32 H, Creatinine 1.24, Estim Creat Clear Calc 44.15, Est GFR (MDRD) Af Amer 71, Est GFR (MDRD) Non-Af 59 L, BUN/Creatinine Ratio 25.8 H, Glucose 140 H, Calcium 9.2, Troponin I High Sens 152 H* 09/26/22 07:13: B-Natriuretic Peptide 2637.9 H 09/26/22 14:02: Troponin I High Sens 2669 H* 09/26/22 19:30: Troponin I High Sens 4328 H* 09/27/22 04:58: Sodium 142, Potassium 3.2 L, Chloride 104, Carbon Dioxide 30.0, Anion Gap 8, BUN 35 H, Creatinine 1.27, Estim Creat Clear Calc 43.11, Est GFR (MDRD) Af Amer 69, Est GFR (MDRD) Non-Af 57 L, BUN/Creatinine Ratio 27.6 H, Glucose 118 H, Calcium 8.5 Radiography Diagnostic Testing: Radiology Impression Chest X-Ray 09/26/22 07:50 IMPRESSION: Findings suggest a mild degree of CHF with superimposed bibasilar atelectasis and basilar scarring worse on the left lung base with blunting of the left costophrenic angle. Electronically Signed: Xander Fylnn MD at 9:10 EST , Rhythm Strip Rhythm Strip: Sinus Rhythm Rate: 95 Ectopy: None Physical Exam Const alert and no apparent distress HEENT head/scalp atraumatic and moist oral mucous membranes Resp normal respiratory effort, no retractions, no use of accessory muscles and clear to auscultation bilaterally Cardio regular rate, regular rhythm, S1 normal heart sound and S2 normal heart sound GI normal to inspection, nondistended, normoactive bowel sounds, soft to palpation, non-tender and non-distended Extremity normal to inspection Assessment & Plan Assessment/Plan (1) Non-STEMI (non-ST elevated myocardial infarction): PLAN: Troponins peaked at 4328. Patient already anticoagulated on rivaroxaban. Which is currently being held for the cardiac catheterization. Consult cardiology. Case discussed with Dr. Lawrence, who will see the patient in consultation History of myalgias with statins, so we will hold. Aspirin Plan for cardiac catheterization on the . (2) Acute on chronic systolic (congestive) heart failure: PLAN: Heart failure with reduced ejection fraction EF 15 to 20% from 2D echocardiogram 04/18/2021 is very diligent in checking his weight and states that he is only put on 1 pound recently. Clinically does not appear to be volume overloaded though he does have some crackles in his bases. Resumed on oral furosemide Continue with carvedilol 6.25 mg daily, Entresto PLAN: Plan Chronic conditions * Seizures: Continue levetiracetam * Status post pacemaker and ICD: Patient to have his battery changed out in the coming months. He inquired about having changed over during this admission. Told him that that would not occur as appears to be functioning properly at this time. That would have to be done at the previously scheduled time. * Hypertension: Stable. VTE prophylaxis: Add SCDs CODE STATUS: Addressed with the patient. Patient is full CODE STATUS. Charges/Coding Visit Charges Inpatient E&M: 62623 Subs Hosp L2
[2022-09-27] MEDS: Carvedilol 6.25 MG Tablet PO (08:55)
[2022-09-27] MEDS: predniSONE 10 MG Tablet PO (08:55)
[2022-09-27] MEDS: Loratadine 10 MG Tablet PO (08:55)
[2022-09-27] MEDS: Pantoprazole Sodium 40 MG Tablet PO (08:55)
[2022-09-27] MEDS: SACUBITRIL/VALSARTAN 24/26 MG TABLET 1 EACH PO ×2 (08:56→22:06)
[2022-09-27] MEDS: Furosemide 40 MG Tablet PO ×2 (08:59→18:05)
[2022-09-27] MEDS: Potassium Chloride Oral Tablet 20 MEQ 40 MEQ PO (11:34)
[2022-09-27] MEDS: Clopidogrel Bisulfate 75 MG Tablet PO (11:34)
[2022-09-27 16:19] LABS: Magnesium 2.1 mg/dL (1.6-2.6); Potassium 3.8 mmol/L (3.5-5.1)
[2022-09-28] VITALS (15 sets, daily range): BP systolic 109–129; BP diastolic 56–73; PULSE 55–72; RESP 16–18; TEMP 36.6–37; O2SAT 92–97; BMI 23.8
[2022-09-28 05:44] LABS: Anion Gap 6 (5-15); BUN 36 mg/dL (7-18); BUN/Creat Ratio 28.8 RATIO (10-20); Calcium,Total 8.7 mg/dL (8.5-10.1); Chloride 103 mmol/L (98-107); Creatinine, Serum 1.25 mg/dL (0.70-1.30); EST Glomerular Filtration Rate 58 mL/min (>60); Est Glom Filt Rate - Afr Amer 70 mL/min (>60); Glucose 106 mg/dL (74-106); Potassium 3.6 mmol/L (3.5-5.1); Sodium Level 141 mmol/L (136-145)
[2022-09-28] MEDS: SACUBITRIL/VALSARTAN 24/26 MG TABLET 1 EACH PO (06:20)
[2022-09-28] MEDS: Carvedilol 6.25 MG Tablet PO (06:20)
[2022-09-28] MEDS: Clopidogrel Bisulfate 75 MG Tablet PO (06:20)
[2022-09-28] MEDS: Pantoprazole Sodium 40 MG Tablet PO (06:20)
[2022-09-28] MEDS: 0.9% Normal Saline 1,000 ML 15 ML IV (06:22)
--- NOTE | 2022-09-28 06:24 | NURSING ---
Medications needed prior to heart cath
--- NOTE | 2022-09-28 07:40 | NURSING ---
0740 Called report to CHRISTIN Loredo in [facility] [place].
--- NOTE | 2022-09-28 08:20 | PCM.PN.CARD ---
Subjective Subjective Patient seen and evaluated. Underwent cardiac catheterization today. Objective Data Vital Signs: Vital Signs Temp Pulse Resp BP Pulse Ox O2 Del Method O2 Flow Rate 98.0 F 61 18 128/70 H 94 Room Air 2 09/28/22 06:14 09/28/22 06:14 09/28/22 06:14 09/28/22 06:14 09/28/22 06:14 09/28/22 06:14 09/27/22 14:00 Oxygen Flow Rate (L/min) 2 Oxygen Delivery Method Room Air Weight: 166 lb 0.129 oz Body Mass Index (BMI) 23.8 Intake & Output: Intake and Output for Last 24 Hours 09/26/22 09/27/22 09/28/22 23:59 23:59 23:59 Intake Total 660 / 660 1140 / 1140 Output Total 1100 / 1100 1300 / 1300 300 / 300 Balance -440 / -440 -160 / -160 -300 / -300 Lab / Micro Data Result Diagrams: 09/26/22 07:13 09/28/22 04:57 Labs: Laboratory Results - last 24 hr 09/27/22 15:27: Potassium 3.8, Magnesium 2.1 09/28/22 04:57: Sodium 141, Potassium 3.6, Chloride 103, Carbon Dioxide 32.0, Anion Gap 6, BUN 36 H, Creatinine 1.25, Estim Creat Clear Calc 43.80, Est GFR (MDRD) Af Amer 70, Est GFR (MDRD) Non-Af 58 L, BUN/Creatinine Ratio 28.8 H, Glucose 106, Calcium 8.7 Rhythm Strip Rhythm Strip: Sinus Rhythm Rate: 95 Ectopy: None Cardiology Labs/Tests 09/27/22 15:27: Potassium 3.8, Magnesium 2.1 09/28/22 04:57: Sodium 141, Potassium 3.6, Chloride 103, Carbon Dioxide 32.0, Anion Gap 6, BUN 36 H, Creatinine 1.25, Est GFR (MDRD) Af Amer 70, Est GFR (MDRD) Non-Af 58 L, BUN/Creatinine Ratio 28.8 H, Glucose 106, Calcium 8.7 Rhythm: EKG: ECHO: Stress Test: Cardiac Cath: PCI: CT Surgery: Holter monitor: EPS: PPM: CXR: Chest CT Scan: Radiography Diagnostic Testing: Radiology Impression Echocardiogram 09/27/22 07:36 Interpretation Summary Normal RV size. Moderately dilated left ventricle. Severe segmental systolic dysfunction (see wall motion). The estimated ejection fraction is 15 %. The left atrium is moderately enlarged. Pulmonary artery systolic pressure is 76 mmHg. Severe pulmonary hypertension. Ordering Physician: Roque Lawrence Referring Physician: Jacques Pena Chi Performed By: Lori Hernandez RCS Physical Exam Const alert and no apparent distress HEENT head/scalp atraumatic and moist oral mucous membranes Resp normal respiratory effort, no retractions, no use of accessory muscles and clear to auscultation bilaterally Cardio regular rate, regular rhythm, S1 normal heart sound and S2 normal heart sound GI normal to inspection, nondistended, normoactive bowel sounds, soft to palpation, non-tender and non-distended Extremity normal to inspection Assessment & Plan Assessment/Plan (1) Unstable angina: (2) History of non-ST elevation myocardial infarction (NSTEMI): PLAN: His cardiac enzymes unfortunately went up rather high. He underwent a cardiac catheterization a year ago. Repeat cardiac catheterization performed today demonstrated the following: Normal left main coronary artery. Previously stented left anterior descending artery with moderate ostial stenosis and diffuse mild to moderate in-stent stenosis. Left circumflex artery previously stented with ostial 50% stenosis and diffuse 30 to 40% in-stent stenosis. Dominant right coronary artery with moderate 50% proximal to mid segment disease and previously placed segments stents with 30 to 40% stenosis in the posterior descending artery with 50% proximal stenosis. Severe left ventricular systolic dysfunction with segmental wall motion abnormalities. Previously viability studies have demonstrated no viability in the anterior wall. Therefore in the stenosis noted in the left anterior descending artery will be managed with medical therapy. We will continue to optimize his medical therapy as necessary. (3) History of implantable cardiac defibrillator (ICD): PLAN: He does have an implantable defibrillator placed. He will continue to follow-up in our device clinic. I would not make any major changes. He tells me that he is nearing end-of-life replacement index and this will be determined at his next appointment and appropriate arrangements made. (4) Ischemic cardiomyopathy: PLAN: He does have evidence of an ischemic cardiomyopathy with reduced left ventricular systolic function. My recommendation is to continue him on the same medications at this time. As you know he has been intolerant of many medications. (5) Acute on chronic systolic (congestive) heart failure: PLAN: We will continue to adjust his diuretic dose and see how he does over time. (6) Atrial fibrillation: PLAN: He does have a history of atrial fibrillation and is anticoagulated. The plan will be to continue him on the same medications. He will remain on his beta-suha as well as his anticoagulation. As you remember he has not tolerated sotalol or amiodarone in the past. His Xarelto can be started from a.m. Thank you for allowing me to participate in the care of your patient. Please don't hesitate to call if any issues arise.
--- NOTE | 2022-09-28 08:29 | CL.D_ITS ---
Patient Name: FLEX GARCIA Study Date: 09/28/2022 Performing: Roque Lawrence MD Ht: 70 inches 177.8 cm : 1935 Wt: 166.01 lbs 75.3 kg Age: 87 Gender: male BSA: 1.93 PROCEDURE(S) PERFORMED DC02-([id number])[facility] INDICATIONS Indications: Suspected CAD Heart Failure: NYHA Class: 2, Newly Diagnosed: No, Heart Failure Type: Systolic Stress/Imaging Stress/Image Study Performed: No CAD Presentations: Non-STEMI. Symptom onset Date/Time: 09/28/22 Time Not Available CONCLUSIONS Severe [place] coronary artery disease previously stented LAD, circumflex artery with some in-stent stenosis noted but no definitive high-grade stenosis present. Right coronary artery also has mid segment stenting with minimal in-stent stenosis. RECOMMENDATIONS Medical therapy DESCRIPTION OF PROCEDURE The patient arrived to the procedure lab. The risks and benefits of the procedure as well as a full description of our services here and current unavailability of surgical backup were fully explained to the patient and/or their significant other prior to the catheterization. The Timeout was completed, verifying the correct patient and procedure. The patient's procedural site was prepped and draped in the usual fashion. Local anesthetic was given subcutaneously to right radial region with Lidocaine 2%. Using a modified Seldinger technique, arterial access was obtained via the right radial artery, a 6Fr sheath was inserted. Left Coronary Artery selective angiography was performed in multiple views using a 5 Fr. 4.0 [place] catheter. Right Coronary Artery selective angiography was then performed in multiple views using a 5 Fr. 4.0 [place] catheter.The arterial sheath was pulled and a TR Band was applied for hemostasis. 8cc air inserted. CORONARY ANGIOGRAPHY DOMINANCE: Right Dominant LEFT HEART ASSESSMENT Left Ventricular Ejection Fraction: by Echo 15 % Anterior Akinesis. Apical Akinesis Depressed Left Ventricular systolic function LEFT MAIN: Angiographically normal, Previously placed stent patent LEFT ANTERIOR DESCENDING ARTERY: Previously placed stent in the proximal and mid left anterior descending artery with a proximal region demonstrating approximately 50% ostial stenosis. 30 to 40% diffuse stenosis is noted in the previously placed stent CIRCUMFLEX ARTERY: Previously placed stent in the proximal and mid left circumflex artery with 50% ostial stenosis noted in the proximal circumflex artery and diffuse 30 to 40% stenosis noted in the rest of the stents in the circumflex artery. RIGHT CORONARY ARTERY: Dominant right coronary artery with 40% proximal irregular stenosis in mid previously placed stent with no high-grade stenosis and distal posterior descending artery with 50% proximal stenosis. COMPLICATIONS No Complications PROCEDURE MEDICATIONS Fentanyl 50 mcg IV Versed 1 mg IV Oxygen: 2 L/min via nasal cannula Oxygen: 3 L/min via nasal cannula Aspirin (325mg) 1 Tabs PO @ 09/28/2022 08:02:59 Heparin given IA 09/28/2022 08:08:07 Verapamil 2.5mg, Ntg 100mcgs, 3000 units of Heparin given IA 09/28/2022 08:08:07 IV Bolus: .9 NaCl 200 ml total 09/28/2022 08:21:04 SUMMARY OF HEMODYNAMIC DATA Time AIR REST ECG 07:59:41 AO 77/45 (56) SA 08:10:35 AIR REST 08:28:03 Signed By Roque Lawrence MD On 09/28/2022 08:28:23 Roque Lawrence MD
--- NOTE | 2022-09-28 08:49 | PN.HOSP_ITS ---
Reason for Visit Reason for Visit: Diagnoses Unstable angina (09/26/22) Non-ST elevation (NSTEMI) myocardial infarction (09/26/22) Old myocardial infarction (09/26/22) Ischemic cardiomyopathy (09/26/22) Unspecified atrial fibrillation (09/26/22) Acute on chronic systolic (congestive) heart failure (09/26/22) Presence of automatic (implantable) cardiac defibrillator (09/26/22) Subjective Subjective Feels well. No chest pain. No shortness of breath Objective Data Objective Data Vital Signs: Vital Signs Temp Pulse Resp BP Pulse Ox O2 Del Method O2 Flow Rate 37.0 C 63 18 129/67 H 95 Room Air 2 09/28/22 08:40 09/28/22 08:40 09/28/22 08:40 09/28/22 08:40 09/28/22 08:40 09/28/22 08:40 09/27/22 14:00 Oxygen Flow Rate (L/min) 2 Oxygen Delivery Method Room Air Weight: 75.3 kg Body Mass Index (BMI) 23.8 Intake & Output: Intake and Output for Last 24 Hours 09/26/22 09/27/22 09/28/22 23:59 23:59 23:59 Intake Total 660 / 660 1140 / 1140 Output Total 1100 / 1100 1300 / 1300 300 / 300 Balance -440 / -440 -160 / -160 -300 / -300 Lab / Micro Data Result Diagrams: 09/26/22 07:13 09/28/22 04:57 Labs: Laboratory Results - last 24 hr 09/27/22 15:27: Potassium 3.8, Magnesium 2.1 09/28/22 04:57: Sodium 141, Potassium 3.6, Chloride 103, Carbon Dioxide 32.0, Anion Gap 6, BUN 36 H, Creatinine 1.25, Estim Creat Clear Calc 43.80, Est GFR (MDRD) Af Amer 70, Est GFR (MDRD) Non-Af 58 L, BUN/Creatinine Ratio 28.8 H, Glucose 106, Calcium 8.7 Radiography Diagnostic Testing: Radiology Impression Echocardiogram 09/27/22 07:36 Interpretation Summary Normal RV size. Moderately dilated left ventricle. Severe segmental systolic dysfunction (see wall motion). The estimated ejection fraction is 15 %. The left atrium is moderately enlarged. Pulmonary artery systolic pressure is 76 mmHg. Severe pulmonary hypertension. Ordering Physician: Roque Lawrence Referring Physician: Jacques Pena Chi Performed By: Lori Hernandez RCS Rhythm Strip Rhythm Strip: Sinus Rhythm Rate: 95 Ectopy: None Physical Exam Const alert and no apparent distress Neck no lymphadenopathy Resp normal respiratory effort, no retractions, no use of accessory muscles and clear to auscultation bilaterally Cardio regular rate, regular rhythm, S1 normal heart sound and S2 normal heart sound GI normal to inspection, nondistended, normoactive bowel sounds, soft to palpation, non-tender and non-distended Assessment & Plan Assessment/Plan (1) Non-STEMI (non-ST elevated myocardial infarction): PLAN: Type II secondary to CHF exacerbation troponins peaked at 4328. Cardiac catheterization showed an EF of 15%. Had 50% stenosis at proximal RCA and LAD. Nothing amenable to intervention. History of myalgias with statins, so we will hold. Aspirin Plan for cardiac catheterization on the . (2) Acute on chronic systolic (congestive) heart failure: PLAN: Heart failure with reduced ejection fraction EF 15 percent from 2D echocardiogram on the . Complicated by severe pulmonary hypertension is very diligent in checking his weight and states that he is only put on 1 pound recently. Clinically does not appear to be volume overloaded though he does have some crackles in his bases. Resumed on oral furosemide Continue with carvedilol 6.25 mg daily, Entresto Compensated. Patient continue with furosemide 40 mg twice daily. PLAN: Plan Chronic conditions * Seizures: Continue levetiracetam * Status post pacemaker and ICD: Patient to have his battery changed out in the coming months. He inquired about having changed over during this admission. Told him that that would not occur as appears to be functioning properly at this time. That would have to be done at the previously scheduled time. * Hypertension: Stable. VTE prophylaxis: Add SCDs CODE STATUS: Addressed with the patient. Patient is full CODE STATUS.
[2022-09-28] MEDS: Furosemide 40 MG Tablet PO (10:36)
[2022-09-28] MEDS: Loratadine 10 MG Tablet PO (10:36)
--- NOTE | 2022-09-28 14:29 | DCINST_ITS ---
Discharge Instructions Diet Discharge Diet: Low fat / Low cholesterol and 6 Cup Fluid Restriction Dressing / Incision Call your doctor if you observe: Shortness of breath, Swelling in the ankles and Chest pain Follow Up Care Test Results: Test results from this visit will be discussed in further detail at your follow- up appointment, if applicable. Discharge Plan Admission Admit Date/Time: 09/26/22 10:36 Primary Reason for Your Visit: CHF exacerbation. Attending Provider: Jose M Austin Primary Care Provider: Jacques Pena Chi Consulting Providers: Roque Lawrence Discharge Orders/Prescriptions Prescriptions: New furosemide 40 mg Tablet 40 mg PO BIDLX Qty: 60 0RF potassium chloride 20 mEq tablet,ER particles/crystals 20 meq PO DAILY Qty: 30 0RF Continued nitroglycerin 0.4 mg tablet, sublingual 0.4 mg sublingual Q5-15M PRN (Reason: chest pain) Qty: 25 3RF pantoprazole 40 MG tablet 40 mg PO DAILY fluticasone propionate 50 mcg/actuation spray,suspension 2 spray INTRANASAL DAILY PRN (Reason: NASAL DECONGESTION) fluconazole 150 mg tablet 150 mg PO TH levocetirizine 5 mg tablet 5 mg PO DAILY carvedilol 6.25 mg tablet 6.25 mg PO DAILY Rx Instructions: daily in the afternoon clopidogrel [Plavix] 75 mg tablet 75 mg PO DAILY Xarelto 20 mg tablet 20 mg PO QPM Entresto 24-26 mg tablet 1 tab PO BID Discontinued prednisone 10 mg tablet See Taper PO UD Taper: Prednisone Taper 30 mg DAILY for 2 Days and 0 Hour 20 mg DAILY for 2 Days and 0 Hour 10 mg DAILY for 2 Days and 0 Hour furosemide [Lasix] 40 mg tablet 40 mg PO DAILY PRN (Reason: FLUID) carvedilol 3.125 mg tablet 3.125 mg PO DAILY Rx Instructions: daily in the am Referrals / Follow Up: [facility] [Provider Group] - 10/11/22 10:30 am Jacques Pena Chi, MD [Primary Care Provider] - Within 2 Weeks Disposition Disposition (needs filled in before D/C Order can be placed): Home, Self Care
--- NOTE | 2022-09-28 14:36 | DS.PCM_ITS ---
Providers Date of Admission: 09/26/22 Primary Care Physician: Dr. Jacques Pena MD Consultations 09/26/22 13:11 Consult: Cardiology Routine Consulting Provider: Roque Lawrence Reason for Consult: chest pain EMERGENT Consult: No MD Notified: Yes Date Notified: 09/26/22 Time Notified: 10:39 Method of Notification: Verbal Reason For Visit: ACUTE ON CHRONIC CHF, ELEVATED TPN, CHEST PAIN Diagnosis Discharge Diagnosis (1) Non-STEMI (non-ST elevated myocardial infarction): Status: Acute Code(s): I21.4 - Non-ST elevation (NSTEMI) myocardial infarction Plan: Type II secondary to CHF exacerbation troponins peaked at 4328. Cardiac catheterization showed an EF of 15%. Had 50% stenosis at proximal RCA and LAD. Nothing amenable to intervention. History of myalgias with statins, so we will hold. Aspirin Plan for cardiac catheterization on the . (2) Acute on chronic systolic (congestive) heart failure: Status: Chronic Code(s): I50.23 - Acute on chronic systolic (congestive) heart failure Plan: Heart failure with reduced ejection fraction EF 15 percent from 2D echocardiogram on the . Complicated by severe pulmonary hypertension is very diligent in checking his weight and states that he is only put on 1 pound recently. Clinically does not appear to be volume overloaded though he does have some crackles in his bases. Resumed on oral furosemide Continue with carvedilol 6.25 mg daily, Entresto Compensated. Patient continue with furosemide 40 mg twice daily. Plan Chronic conditions * Seizures: Continue levetiracetam * Status post pacemaker and ICD: Patient to have his battery changed out in the coming months. He inquired about having changed over during this admission. Told him that that would not occur as appears to be functioning properly at this time. That would have to be done at the previously scheduled time. * Hypertension: Stable. VTE prophylaxis: Add SCDs CODE STATUS: Addressed with the patient. Patient is full CODE STATUS. Medications at Discharge Home Medications pantoprazole 40 mg tablet,delayed release 40 mg PO DAILY ACID REFLUX 10/29/16 nitroglycerin 0.4 mg sublingual tablet 0.4 mg sublingual Q5-15M PRN chest pain #25 tabs 07/22/20 fluticasone propionate 50 mcg/actuation nasal spray,suspension 2 spray intranasal DAILY PRN NASAL DECONGESTION 08/09/21 carvedilol 6.25 mg tablet 6.25 mg PO DAILY HEART 09/26/22 clopidogrel 75 mg tablet (Plavix) 75 mg PO DAILY BLOOD THINNER 09/26/22 fluconazole 150 mg tablet 150 mg PO TH ANTIFUNGAL 09/26/22 levocetirizine 5 mg tablet 5 mg PO DAILY SKIN 09/26/22 rivaroxaban 20 mg tablet (Xarelto) 20 mg PO QPM BLOOD THINNER 09/26/22 sacubitril 24 mg-valsartan 26 mg tablet (Entresto) 1 tab PO BID HEART FAILURE 09/26/22 furosemide 40 mg tablet 40 mg PO BIDLX #60 tabs 09/28/22 potassium chloride 20 mEq tablet,extended release(part/cryst) 20 meq PO DAILY #30 tabs 09/28/22 Hospital Course Operations None Procedures 2-D Echocardiogram and Cardiac catheterization Summary of Care Provided Minutes Spent on Discharge: 32 Weight / BMI Weight Weight: 75.3 kg Body Mass Index (BMI) 23.8 ABG / Lab / Microbiology Data Result Diagrams: 09/26/22 07:13 09/28/22 04:57 Laboratory: Laboratory Results - last 24 hr 09/27/22 15:27: Potassium 3.8, Magnesium 2.1 09/28/22 04:57: Sodium 141, Potassium 3.6, Chloride 103, Carbon Dioxide 32.0, Anion Gap 6, BUN 36 H, Creatinine 1.25, Estim Creat Clear Calc 43.80, Est GFR (MDRD) Af Amer 70, Est GFR (MDRD) Non-Af 58 L, BUN/Creatinine Ratio 28.8 H, Glucose 106, Calcium 8.7 D/C Instructions Discharge Diet: Low fat / Low cholesterol and 6 Cup Fluid Restriction Call your doctor if you observe: Shortness of breath, Swelling in the ankles and Chest pain Meaningful Use Info Meaningful Use Diagnoses (Choose all that apply): AMI and CHF AMI/Post PCI/Angioplasty Aspirin given w/in 24hrs of arrival?: Yes ASA at discharge?: Yes Antiplatelet Therapy at Discharge:: Yes Statins at discharge?: No Reason statins not ordered:: Allergy Jorge Luis/ARB at discharge?: No Reason Jorge Luis/ARB not ordered:: Hypotension Beta Dmitry at discharge?: Yes Done w/ Acute VT measure.: Yes Documented LVEF (%): 15 CHF JORGE LUIS/ARB ordered at discharge?: No Reason JORGE LUIS/ARB not ordered?: Hypotension Documented LVEF (%): 15 Discharge Plan Admission Admit Date/Time: 09/26/22 10:36 Primary Reason for Your Visit: CHF exacerbation. Attending Provider: Jose M Austin Primary Care Provider: Jacques Pena Chi Consulting Providers: Roque Lawrence Discharge Orders/Prescriptions Prescriptions: New furosemide 40 mg Tablet 40 mg PO BIDLX Qty: 60 0RF potassium chloride 20 mEq tablet,ER particles/crystals 20 meq PO DAILY Qty: 30 0RF Continued nitroglycerin 0.4 mg tablet, sublingual 0.4 mg sublingual Q5-15M PRN (Reason: chest pain) Qty: 25 3RF pantoprazole 40 MG tablet 40 mg PO DAILY fluticasone propionate 50 mcg/actuation spray,suspension 2 spray INTRANASAL DAILY PRN (Reason: NASAL DECONGESTION) fluconazole 150 mg tablet 150 mg PO TH levocetirizine 5 mg tablet 5 mg PO DAILY carvedilol 6.25 mg tablet 6.25 mg PO DAILY Rx Instructions: daily in the afternoon clopidogrel [Plavix] 75 mg tablet 75 mg PO DAILY Xarelto 20 mg tablet 20 mg PO QPM Entresto 24-26 mg tablet 1 tab PO BID Discontinued prednisone 10 mg tablet See Taper PO UD Taper: Prednisone Taper 30 mg DAILY for 2 Days and 0 Hour 20 mg DAILY for 2 Days and 0 Hour 10 mg DAILY for 2 Days and 0 Hour furosemide [Lasix] 40 mg tablet 40 mg PO DAILY PRN (Reason: FLUID) carvedilol 3.125 mg tablet 3.125 mg PO DAILY Rx Instructions: daily in the am Referrals / Follow Up: [facility] [Provider Group] - 10/11/22 10:30 am Jacques Pena Chi, MD [Primary Care Provider] - Within 2 Weeks Disposition Disposition (needs filled in before D/C Order can be placed): Home, Self Care Charges/Coding Visit Charges Inpatient E&M: 59947 Disch Hosp
--- NOTE | 2022-09-28 15:39 | PHA.DC.MC ---
Pharmacy Service has performed discharge medication reconciliation and counseling for this patient. 1. POTASSIUM CHLORIDE 20MEQ PO DAILY The patient's discharge medication list was reviewed for discrepancies and discrepancies were resolved. Home Medications pantoprazole 40 mg tablet,delayed release 40 mg PO DAILY ACID REFLUX 10/29/16 nitroglycerin 0.4 mg sublingual tablet 0.4 mg sublingual Q5-15M PRN chest pain #25 tabs 07/22/20 fluticasone propionate 50 mcg/actuation nasal spray,suspension 2 spray intranasal DAILY PRN NASAL DECONGESTION 08/09/21 carvedilol 6.25 mg tablet 6.25 mg PO DAILY HEART 09/26/22 clopidogrel 75 mg tablet (Plavix) 75 mg PO DAILY BLOOD THINNER 09/26/22 fluconazole 150 mg tablet 150 mg PO TH ANTIFUNGAL 09/26/22 levocetirizine 5 mg tablet 5 mg PO DAILY SKIN 09/26/22 rivaroxaban 20 mg tablet (Xarelto) 20 mg PO QPM BLOOD THINNER 09/26/22 sacubitril 24 mg-valsartan 26 mg tablet (Entresto) 1 tab PO BID HEART FAILURE 09/26/22 furosemide 40 mg tablet 40 mg PO BIDLX #60 tabs 09/28/22 potassium chloride 20 mEq tablet,extended release(part/cryst) 20 meq PO DAILY #30 tabs 09/28/22 The patient was counseled on the following discharge medications and changes in medications for homegoing were reviewed. The Reason for Use, instructions for use, and potential side effects were reviewed for all new medications. The patient's questions regarding all of their medications were answered. The patient was able to verbally demonstrate an understanding of their discharge medications.
== END 2022-09-28 15:56 | disposition home or self-care (01) | DRG 280 ==
LOC: ED 09:31 → PCU 10:12
PROVIDERS: Emergency Provider Emergency Medicine; PCP Family Medicine Geriatric Medicine
DX: I11.0 Hypertensive heart disease with heart failure (principal); I21.A1 Myocardial infarction type 2; I50.23 Acute on chronic systolic (congestive) heart failure; I27.21 Secondary pulmonary arterial hypertension; R56.9 Unspecified convulsions; I25.110 Atherosclerotic heart disease of native coronary artery with unstable angina pectoris; I48.0 Paroxysmal atrial fibrillation; E78.5 Hyperlipidemia, unspecified; I25.5 Ischemic cardiomyopathy; I25.2 Old myocardial infarction; Z95.810 Presence of automatic (implantable) cardiac defibrillator; Z95.5 Presence of coronary angioplasty implant and graft; Z79.01 Long term (current) use of anticoagulants; Z79.02 Long term (current) use of antithrombotics/antiplatelets; Z79.899 Other long term (current) drug therapy; Z86.73 Personal history of transient ischemic attack (TIA), and cerebral infarction without residual deficits
CPT/HCPCS: 36415; 71045; 80048; 83735; 83880; 84132; 84484; 85025; 93005; 93306; 93454; 94640; 94668; 99152; 99252; 99285; J7030; Q9967; A4216; C1769; C1894; G0463; J1940

== ENCOUNTER 2022-10-20 08:18 | Day surgery (SDC) | payer MEDICARE, OTHER, SELFPAY ==
[2020-04-02 11:50] VITALS: BMI 26.2
[2022-10-11 11:51] LABS: Bacteria 0 SEEN /hpf (None Seen); Mucous, Urine 0 SEEN /hpf (<or=2+); White Blood Cells 0 SEEN /hpf (0-5)
[2022-10-11 12:24] LABS: Hematocrit 38.5 % (40-54); Hemoglobin 12.2 g/dL (13.0-16.5); Mean Corp Hgb Conc 31.7 g/dL (32-36); Mean Corpuscular Volume 94.6 fL (80-94); Mean Platelet Vol. 13.5 fl (6.2-12.0); Platelet Count 191 K/mm3 (150-450); RBC Distribution Width CV 14.1 % (11.6-14.6); RBC Distribution Width SD 48.4 fl (35.1-43.9); Red Blood Count 4.07 M/mm3 (4.6-6.2); White Blood Count 8.2 K/mm3 (4.4-11.0)
[2022-10-11 12:29] LABS: Color, Urine Yellow (Yellow); Glucose, Dipstick Normal (Normal); Ketone-Dipstick 5 mg/dl (Negative); Leukocyte Esterase-Dipstick Negative /ul (Negative); Nitrite-Dipstick Negative (Negative); Occult Blood-Urine 150 /ul (Negative); Protein-Dipstick 15 mg/dl (Negative); Urine Bilirubin Dipstick Negative (Negative); Urine Clarity Clear (Clear); Urine Urobilinogen 1 mg/dl (Normal)
[2022-10-11 12:40] LABS: Anion Gap 6 (5-15); BUN 25 mg/dL (7-18); BUN/Creat Ratio 18.8 RATIO (10-20); Calcium,Total 9.3 mg/dL (8.5-10.1); Chloride 105 mmol/L (98-107); Creatinine, Serum 1.33 mg/dL (0.70-1.30); EST Glomerular Filtration Rate 54 mL/min (>60); Est Glom Filt Rate - Afr Amer 66 mL/min (>60); Glucose 100 mg/dL (74-106); Potassium 4.4 mmol/L (3.5-5.1); Sodium Level 138 mmol/L (136-145)
[2022-10-11 13:13] LABS: International Normalized Ratio 1.7
[2022-10-11 13:15] LABS: Red Blood Cells-Urine 10-25 SEEN /hpf (0-5); Squamous Epithelial Cells - UA 0-5 SEEN /hpf (0-5)
[2022-10-20 08:26] VITALS: BMI 24.0
--- NOTE | 2022-10-20 11:11 | EX.DEFIBPR_ITS ---
Defibrillator Procedure Note Defibrillator Procedure Note Diagnosis: Ischemic Cardiomyopathy with NYHA Class iii. ICD for secondary prev ention. Device generator replacement for normal battery depletion Preoperative diagnosis is device at end of life for normal battery depletion. Postoperative diagnosis same as above. After informed consent and IV antibiotics the patient was brought to the [place] catheterization laboratory and the skin over the device was prepped and draped in the usual sterile manner. Intermittent boluses of Versed, and fentanyl were used for sedation and analgesia as well as 1% subcutaneous lidocaine. An incision was made over the pre-existing device. Using blunt and Bovie dissection the pocket was opened and the device was removed. Careful attention was paid not to injure the pre-existing leads. The leads were removed from the device header and they were interrogated. There is normal lead function. Hemostasis was obtained. The pocket was flushed with antibiotic solution. The sponge and needle count were correct. The new device was brought to the field. The leads were placed in the appropriate position in the header and secured by the set screw. The leads and the device were then placed in the pocket. The pocket was closed with a deep layer of running 2-0 Vicryl, a superficial layer of running 4-0 Vicryl, skin with Steri-Strips which were covered with a rolled 4 x 4 and Tegaderm. Patient left the room with the device programmed to proper parameters and there were no complications. The device is a DDD chamber [employer] ICD generator. All lead parameters were tested and found to be functionally normal. Lead and device serial and model numbers are available in the chart documents provided by the device company veterans contact representative procedure summary.
== END 2022-10-20 13:20 | disposition home or self-care (01) ==
LOC: CLSP 08:20
PROVIDERS: Internal Medicine Cardiovascular Disease; PCP Family Medicine Geriatric Medicine; Referring Provider Internal Medicine Cardiovascular Disease; Visit Provider Internal Medicine Cardiovascular Disease
DX: I25.5 Ischemic cardiomyopathy (principal); I50.22 Chronic systolic (congestive) heart failure; I11.0 Hypertensive heart disease with heart failure; I48.0 Paroxysmal atrial fibrillation; I25.10 Atherosclerotic heart disease of native coronary artery without angina pectoris; Z95.810 Presence of automatic (implantable) cardiac defibrillator; I25.2 Old myocardial infarction; Z86.73 Personal history of transient ischemic attack (TIA), and cerebral infarction without residual deficits; Z95.5 Presence of coronary angioplasty implant and graft; Z79.899 Other long term (current) drug therapy; Z79.01 Long term (current) use of anticoagulants
CPT/HCPCS: 33263; 36415; 80048; 81001; 85027; 85610; 93641; 99152; 99153; J7040; J7050

== ENCOUNTER → 2022-11-02 | Outpatient (CLI) | payer MEDICARE, OTHER, SELFPAY ==
[2020-04-02 11:50] VITALS: BMI 26.2
[2022-11-02 18:16] LABS: Absolute Lymphocyte Count 1.09 X10^3/uL (0.83-4.51); Absolute Neutrophil Count 4.7 X10^3/uL (2.0-7.7); Basophil# 0.05 X10^3/uL; Basophil% 0.8 % (0-1); Eosinophil# 0.07 X10^3/uL; Eosinophils% 1.1 % (0-5); Hemoglobin 10.7 g/dL (13.0-16.5); Lymphocyte # 1.09 X10^3/ul (0.83-4.51); Lymphocyte % 17.1 % (19-41); Mean Corp Hgb Conc 31.5 g/dL (32-36); Mean Corpuscular Hgb 30.3 pg (27.0-32.0); Mean Corpuscular Volume 96.3 fL (80-94); Mean Platelet Vol. 13.3 fl (6.2-12.0); Monocyte# 0.47 X10^3/uL; Monocyte% 7.4 % (0-10); NRBC Flagged by Analyzer 0 % (0-5); Neutrophil # 4.66 X10^3/uL (2.7-7.7); Neutrophil % 73.3 % (47-70); Platelet Count 168 K/mm3 (150-450); RBC Distribution Width CV 15.1 % (11.6-14.6); RBC Distribution Width SD 52.6 fl (35.1-43.9); Red Blood Count 3.53 M/mm3 (4.6-6.2); White Blood Count 6.4 K/mm3 (4.4-11.0)
[2022-11-02 18:36] LABS: Vitamin D,25 Hydroxy 26.8 ng/mL
[2022-11-02 18:45] LABS: ALB/GLOB Ratio 1.2 RATIO (0.9-2.4); AST(SGOT) 13 U/L (15-37); Alanine Aminotransfer ALT/SGPT 13 U/L (16-61); Albumin, Serum 3.5 g/dL (3.2-5.0); Alkaline Phosphatase 62 U/L (45-117); Anion Gap 6 (5-15); BUN 23 mg/dL (7-18); BUN/Creat Ratio 18.7 RATIO (10-20); Calcium,Total 8.9 mg/dL (8.5-10.1); Chloride 103 mmol/L (98-107); Creatinine, Serum 1.23 mg/dL (0.70-1.30); EST Glomerular Filtration Rate 59 mL/min (>60); Est Glom Filt Rate - Afr Amer 72 mL/min (>60); Glucose 99 mg/dL (74-106); Potassium 3.8 mmol/L (3.5-5.1); Protein, Total 6.5 g/dL (6.4-8.2); Sodium Level 138 mmol/L (136-145)
== END | disposition home or self-care (01) ==
LOC: POLAB3 09:51
PROVIDERS: PCP Family Medicine Geriatric Medicine; Visit Provider Family Medicine Geriatric Medicine
DX: E55.9 Vitamin D deficiency, unspecified (principal); I10 Essential (primary) hypertension
CPT/HCPCS: 36415; 80053; 82306; 84443; 85025

== ENCOUNTER → 2022-11-08 | Outpatient (CLI) | payer MEDICARE, OTHER, SELFPAY ==
[2020-04-02 11:50] VITALS: BMI 26.2
[2022-11-08 13:16] LABS: Absolute Lymphocyte Count 0.83 X10^3/uL (0.83-4.51); Absolute Neutrophil Count 4.3 X10^3/uL (2.0-7.7); Basophil# 0.04 X10^3/uL; Basophil% 0.7 % (0-1); Eosinophil# 0.08 X10^3/uL; Eosinophils% 1.4 % (0-5); Hematocrit 33.2 % (40-54); Hemoglobin 10.5 g/dL (13.0-16.5); Immature Platelet Fraction 19.7 % (1.0-7.9); Lymphocyte # 0.83 X10^3/ul (0.83-4.51); Lymphocyte % 14.9 % (19-41); Mean Corp Hgb Conc 31.6 g/dL (32-36); Mean Corpuscular Hgb 30.1 pg (27.0-32.0); Mean Corpuscular Volume 95.1 fL (80-94); Mean Platelet Vol. 13.2 fl (6.2-12.0); Monocyte# 0.32 X10^3/uL; Monocyte% 5.8 % (0-10); NRBC Flagged by Analyzer 0 % (0-5); Neutrophil # 4.28 X10^3/uL (2.7-7.7); Platelet Count 162 K/mm3 (150-450); RBC Distribution Width CV 15.6 % (11.6-14.6); RBC Distribution Width SD 53.5 fl (35.1-43.9); RET-HE 34.1 pg (30-35); Red Blood Count 3.49 M/mm3 (4.6-6.2); Reticulocyte Count 3.04 % (0.5-1.5); White Blood Count 5.6 K/mm3 (4.4-11.0)
[2022-11-08 13:33] LABS: Vitamin B12 320 pg/mL (211-911)
[2022-11-08 13:44] LABS: ALB/GLOB Ratio 1.1 RATIO (0.9-2.4); AST(SGOT) 14 U/L (15-37); Alanine Aminotransfer ALT/SGPT 11 U/L (16-61); Albumin, Serum 3.4 g/dL (3.2-5.0); Alkaline Phosphatase 57 U/L (45-117); Anion Gap 5 (5-15); BUN 24 mg/dL (7-18); BUN/Creat Ratio 20.7 RATIO (10-20); Calcium,Total 8.9 mg/dL (8.5-10.1); Chloride 107 mmol/L (98-107); Creatinine, Serum 1.16 mg/dL (0.70-1.30); EST Glomerular Filtration Rate 63 mL/min (>60); Est Glom Filt Rate - Afr Amer 77 mL/min (>60); Ferritin 80 ng/mL (26-388); Glucose 110 mg/dL (74-106); Potassium 3.8 mmol/L (3.5-5.1); Protein, Total 6.4 g/dL (6.4-8.2); Sodium Level 139 mmol/L (136-145); Thyroid Stim Hormone (TSH) 0.66 uIU/mL (0.358-3.74)
== END | disposition home or self-care (01) ==
LOC: POLAB3 11:50
PROVIDERS: PCP Family Medicine Geriatric Medicine; Visit Provider Family Medicine Geriatric Medicine
DX: D64.9 Anemia, unspecified (principal)
CPT/HCPCS: 36415; 80053; 82607; 82728; 82746; 84443; 85025; 85045

== ENCOUNTER → 2022-11-10 | Outpatient (CLI) | payer MEDICARE, OTHER, SELFPAY ==
[2020-04-02 11:50] VITALS: BMI 26.2
[2022-11-10 11:18] LABS: Homocysteine 14.6 umol/L (3.2-10.7)
[2022-11-14 11:14] LABS: Methylmalonic Acid Bld 464 nmol/L (0-378)
== END | disposition home or self-care (01) ==
PROVIDERS: PCP Family Medicine Geriatric Medicine; Referring Provider Family Medicine Geriatric Medicine; Visit Provider Family Medicine Geriatric Medicine
DX: D64.9 Anemia, unspecified (principal); E53.8 Deficiency of other specified B group vitamins; I10 Essential (primary) hypertension
CPT/HCPCS: 36415; 82274; 83090; 83921

== ENCOUNTER 2022-11-16 03:33 | Observation (INO) | payer MEDICARE, OTHER, SELFPAY ==
[2020-04-02 11:50] VITALS: BMI 26.2
[2022-11-16] VITALS (9 sets, daily range): BP systolic 120–138; BP diastolic 60–83; PULSE 67–79; RESP 15–18; TEMP 36.2–37.1; O2SAT 96–100; BMI 25.0; BMI 24.5
--- NOTE | 2022-11-16 03:44 | RAD_ITS ---
INDICATION: chest pain EXAMINATION/TECHNIQUE: X-RAY - AP view of chest COMPARISON: Chest x-ray from 09/26/2022 FINDINGS: LINES/DEVICES: Right AICD and place. LUNGS: Emphysematous upper lungs with persistent coarsened bilateral perihilar lung markings. No sizable pleural effusion. No detectable pneumothorax. MEDIASTINUM AND CARDIOVASCULAR STRUCTURES: Heart size within normal limits for imaging technique. Atherosclerotic calcifications along aorta. Coronary arterial calcifications also noted. BONES AND SOFT TISSUES: Skeletal degenerative changes. Right subdiaphragmatic colonic interpositioning noted. RAD/Chest 1 View (Portable) IMPRESSION: Mild COPD with chronic appearing bilateral perihilar lung markings. Electronically Signed: Gary Mackenzie MD at 4:23 EDT ,
[2022-11-16 03:52] LABS: Absolute Lymphocyte Count 1.86 X10^3/uL (0.83-4.51); Absolute Neutrophil Count 3.9 X10^3/uL (2.0-7.7); Basophil# 0.05 X10^3/uL; Basophil% 0.8 % (0-1); Eosinophil# 0.15 X10^3/uL; Eosinophils% 2.4 % (0-5); Hematocrit 36.5 % (40-54); Hemoglobin 11.5 g/dL (13.0-16.5); Lymphocyte # 1.86 X10^3/ul (0.83-4.51); Lymphocyte % 29.2 % (19-41); Mean Corp Hgb Conc 31.5 g/dL (32-36); Mean Corpuscular Hgb 30.6 pg (27.0-32.0); Mean Corpuscular Volume 97.1 fL (80-94); Monocyte# 0.42 X10^3/uL; Monocyte% 6.6 % (0-10); NRBC Flagged by Analyzer 0 % (0-5); Neutrophil # 3.87 X10^3/uL (2.7-7.7); Neutrophil % 60.7 % (47-70); POSITIVE MORPHOLOGY YES; Platelet Count 174 K/mm3 (150-450); RBC Distribution Width CV 16.4 % (11.6-14.6); RBC Distribution Width SD 57.8 fl (35.1-43.9); Red Blood Count 3.76 M/mm3 (4.6-6.2); White Blood Count 6.4 K/mm3 (4.4-11.0)
[2022-11-16 03:54] LABS: Differential Indicated SCAN CRITERIA MET
[2022-11-16] MEDS: Aspirin 81 MG TAB.CHEW 324 MG PO (04:00)
[2022-11-16 04:03] LABS: Differential Comment SCANNED
[2022-11-16 04:38] LABS: Anion Gap 5 (5-15); BUN 23 mg/dL (7-18); BUN/Creat Ratio 18.4 RATIO (10-20); Calcium,Total 9.2 mg/dL (8.5-10.1); Chloride 107 mmol/L (98-107); Creatinine, Serum 1.25 mg/dL (0.70-1.30); EST Glomerular Filtration Rate 58 mL/min (>60); Est Glom Filt Rate - Afr Amer 70 mL/min (>60); Glucose 140 mg/dL (74-106); Potassium 3.7 mmol/L (3.5-5.1); Sodium Level 139 mmol/L (136-145); Troponin-I HS (w/2H Reflex) 149 pg/mL (3.0-78.0)
--- NOTE | 2022-11-16 04:49 | ED.VIS.CHEST ---
HPI History of Present Illness Chief Complaint: Chest Pain Narrative Narrative: 87-year-old male presenting with chest pain. He states it started about 8 PM. Its been fairly persistent since that time but it waxes and wanes in severity. He described it as acute indigestion. When asked to further elaborate on what that felt like he states like pressure and tightness. He said he felt a little bit lightheaded as well. At about 2 AM the pain got worse. He took some Mylanta and his symptoms did not get better. Patient reports and a significant cardiac history of 9 MIs, 15 cardiac catheterizations, 8 stents. He and his believe his last cardiac catheterization was in August of this year and there was nothing found that they recall. He currently states his chest pain has improved and he no longer has pain [facility] Medical History Acute blood loss anemia Anemia Arthritis Atherosclerosis of coronary artery of [place] heart with angina pectoris Atrial fibrillation BPH (benign prostatic hyperplasia) Bruising Cancer Carotid artery disease Chronic systolic (congestive) heart failure Constipation DDD (degenerative disc disease) Essential (primary) hypertension GERD (gastroesophageal reflux disease) Hematuria Hiatal hernia History of non-ST elevation myocardial infarction (NSTEMI) (12/27/21) HLD (hyperlipidemia) Irregular heart beat Ischemic cardiomyopathy Left bundle branch block (LBBB) Left carotid artery stenosis Male hypogonadism [place] (myocardial infarction) Non-smoker Nonsustained ventricular tachycardia 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 infarction Pacemaker Paroxysmal atrial fibrillation Polycythemia Secondary pulmonary arterial hypertension Segmental and somatic dysfunction of pelvic region Segmental and somatic dysfunction of thoracic region Shortness of breath on exertion Sinus drainage TIA (transient ischemic attack) Wears dentures Wears glasses Home Medications pantoprazole 40 mg tablet,delayed release 40 mg PO DAILY ACID REFLUX 10/29/16 [History Last Taken 10/20/22] nitroglycerin 0.4 mg sublingual tablet 0.4 mg sublingual Q5-15M PRN chest pain #25 tabs 07/22/20 [Rx Last Taken 09/24/22] fluticasone propionate 50 mcg/actuation nasal spray,suspension 2 spray intranasal DAILY PRN NASAL DECONGESTION 08/09/21 [History Last Taken Unknown] clopidogrel 75 mg tablet (Plavix) 75 mg PO DAILY BLOOD THINNER 09/26/22 [History Last Taken 10/19/22 21:00] fluconazole 150 mg tablet 150 mg PO TH ANTIFUNGAL 09/26/22 [History Last Taken 09/22/22] levocetirizine 5 mg tablet 5 mg PO DAILY SKIN 09/26/22 [History Last Taken 09/25/22] rivaroxaban 20 mg tablet (Xarelto) 20 mg PO QPM BLOOD THINNER 09/26/22 [History Last Taken 10/18/22] sacubitril 24 mg-valsartan 26 mg tablet (Entresto) 1 tab PO BID HEART FAILURE 09/26/22 [History Last Taken 10/20/22] potassium chloride 20 mEq tablet,extended release(part/cryst) 20 meq PO DAILY #30 tabs 09/28/22 [Rx Last Taken Unknown] carvedilol 6.25 mg tablet 3.125 mg PO BID HEART 10/11/22 [History Last Taken 10/20/22] furosemide 40 mg tablet 20 mg PO DAILY PRN weight gain #60 tabs 10/27/22 [Rx Last Taken Unknown] Allergy/AdvReac Type Severity Reaction Status Date / Time hydrochlorothiazide Allergy Severe Severe Verified 10/19/22 07:25 itching rash promethazine [From Phenergan] Allergy Other Verified 10/19/22 07:25 apixaban [From Eliquis] AdvReac Severe All over Verified 10/19/22 07:25 itching and rash ranolazine [From Ranexa] AdvReac Severe Rash Verified 10/19/22 07:25 omeprazole AdvReac Unknown Verified 10/19/22 07:25 Phenothiazines AdvReac Unknown Verified 10/19/22 07:25 [id number] Reductase AdvReac myalgias Verified 10/19/22 07:25 Inhibitor [Cjlbskk-Zul-Qxa Reductase Inhibitor] PHENEGRANZOLE AdvReac Unknown Uncoded 10/19/22 07:25 Family History Father , Age 37 from [place] CAD (coronary artery disease) Myocardial infarction Sudden cardiac Mother , age 96 Diabetes Surgical History History of appendectomy History of cataract surgery History of coronary artery stent placement (04/19/21) History of electrophysiologic study (2009) History of hernia repair History of implantable cardiac defibrillator (ICD) (05/17/10) History of intraocular lens implant History of left heart catheterization (08/09/21) History of transurethral resection of prostate (12/16/20) Social History Smoking Status: Never smoker alcohol intake: never substance use type: does not use caffeine: Yes Type: carbonated beverages Number of servings: 1 and coffee Number of servings: 1 what type of physical activity do you participate in: none ROS ROS ED Constitutional Constitutional ED: Denies chills or fever(s) Eyes Eyes: Denies blurry vision or change in vision ENT ENT ED: Denies rhinorrhea Cardiovascular Cardiovascular: Reports as per HPI Respiratory/Chest Respiratory/Chest: Denies cough or dyspnea Gastrointestinal Gastrointestinal: Denies abdominal pain, constipation or nausea Genitourinary Genitourinary ED: Denies dysuria or hematuria Musculoskeletal Musculoskeletal: Denies arthralgias Integumentary Denies abscess Neurologic Neurologic: Denies headache(s) or paresthesias Psychiatric Psychiatric: Denies anxiety or depression EXAM Physical Exam Const Vital Signs: 11/16/22 03:34 11/16/22 03:58 11/16/22 04:26 Temperature 98.3 F Temperature Source Temporal Pulse Rate 74 69 Respiratory Rate 17 15 Blood Pressure 125/60 H Blood Pressure Mean 81 Pulse Ox 99 97 Oxygen Delivery Method Room Air Room Air Room Air Positive well nourished General Appearance ED: NAD; Negative for pallor HEENT Reports moist mucous membranes normocephalic and atraumatic Eyes PERRL and EOMs intact bilaterally Resp normal respiratory effort and clear to auscultation bilaterally Auscultation: Negative for rales, rhonchi or wheezes Cardio regular rate Neuro oriented x3 and CN's II-XII intact bilaterally Sensorium / Orientation: awake and alert Skin no rashes or lesions noted General Skin Exam: Negative for jaundice or pallor Heart Score History: Moderately Suspicious ECG: Nonspecific Repolarization Age: >/= 65 years Risk Factors: >/= 3 Risk Factors or History of CAD Troponin: >1 - <3 Normal Limit Score: 7 MDM MDM MDM Narrative Medical decision making narrative: 87-year-old male presenting with chest pain. HEART score of 7. Significant history of cardiac disease. He had a cardiac catheterization 09/28/2022 which showed a previously placed stent in the proximal and mid left anterior descending artery with a proximal region demonstrating approximately 50% ostial stenosis and 30 to 40% diffuse stenosis in the previous stent. In the left main was angiographically normal previously placed stent is normal. In the circumflex previously placed stent in the proximal and mid left circumflex artery a 50% ostial stenosis noted in the proximal circumflex artery and diffuse 30 to 40% stenosis noted in the rest of the stents in the circumflex artery right coronary artery with 40% proximal irregular stenosis in the mid previously splay stent with no high-grade stenosis and distal posterior descending artery with 50% stenosis. His EF at that time is 15%. Differential includes acute coronary syndrome, pneumonia, dyspepsia, GERD, unlikely to be PE due to the patient being anticoagulated on Xarelto. Patient does have a hiatal hernia and this is in the differential as well causing pain. Patient is pain-free currently. CBC shows a no white blood cell count at 6.4. Hemoglobin stable 11.5. Platelets normal 174. Creatinine 1.25. Electrolytes within normal limits. Glucose 140 without anion gap. High-sensitivity troponin came back at 149. Patient given 324 mg of aspirin. Given that he is high risk I think you need to be admitted to the hospital. Will discuss with hospitalist for admission. Impression: 1. Chest pain 2. Elevated troponin Lab Data Labs: Laboratory Results - last 24 hr 11/16/22 11/16/22 03:40 03:40 WBC 6.4 RBC 3.76 L Hgb 11.5 L Hct 36.5 L MCV 97.1 H MCH 30.6 MCHC 31.5 L RDW Std Deviation 57.8 H RDW Coeff of Dane 16.4 H Plt Count 174 MPV 13.0 H Immature Gran % (Auto) 0.300 Neut % (Auto) 60.7 Lymph % (Auto) 29.2 [place] % (Auto) 6.6 Eos % (Auto) 2.4 Baso % (Auto) 0.8 Absolute Neuts (auto) 3.9 Absolute Lymphs (auto) 1.86 Nucleated RBC % 0 Differential Comment SCANNED Sodium 139 Potassium 3.7 Chloride 107 Carbon Dioxide 27.0 Anion Gap 5 BUN 23 H Creatinine 1.25 Estim Creat Clear Calc 43.80 Est GFR (MDRD) Af Amer 70 Est GFR (MDRD) Non-Af 58 L BUN/Creatinine Ratio 18.4 Glucose 140 H Calcium 9.2 Troponin I High Sens 149 H* Radiography Diagnostic Testing: Clinical Impression(s) from Imaging Studies Chest X-Ray 11/16/22 03:44 IMPRESSION: Mild COPD with chronic appearing bilateral perihilar lung markings. Electronically Signed: Gary Mackenzie MD at 4:23 EDT , Discharge Plan Triage Chief Complaint: Chest Pain ED Provider: Hai Mireles Dx/Rx/DC Orders Prescriptions: No Action nitroglycerin 0.4 mg tablet, sublingual 0.4 mg sublingual Q5-15M PRN (Reason: chest pain) Qty: 25 3RF carvedilol 6.25 mg tablet 3.125 mg PO BID furosemide 40 mg tablet 20 mg PO DAILY PRN (Reason: weight gain) Qty: 60 0RF pantoprazole 40 MG tablet 40 mg PO DAILY fluticasone propionate 50 mcg/actuation spray,suspension 2 spray INTRANASAL DAILY PRN (Reason: NASAL DECONGESTION) fluconazole 150 mg tablet 150 mg PO TH levocetirizine 5 mg tablet 5 mg PO DAILY clopidogrel [Plavix] 75 mg tablet 75 mg PO DAILY Xarelto 20 mg tablet 20 mg PO QPM Entresto 24-26 mg tablet 1 tab PO BID potassium chloride 20 mEq tablet,ER particles/crystals 20 meq PO DAILY Qty: 30 0RF Primary Care Provider: Jacques Pena Chi Referrals: Jacques Pena Chi, MD [Primary Care Provider] -
--- NOTE | 2022-11-16 05:31 | PCM.HP.STD ---
HPI - General General Date of Admission: 11/16/22 Date of Service: 11/16/22 Chief Complaint: Chest pain HPI Narrative FLEX GARCIA, is a 87 M with a significant history of 9 MIs with 8 stents, 15 heart catheterization; atrial fibrillation; heart failure with reduced ejection fraction (EF about 15%); pacemaker with defibrillator who presented to the emergency department with substernal chest pain that started about 5 hours before presentation. The pain started after he ate dinner. He attributed the pain to GI symptoms as he was having difficulty belching. The pain persisted and when he woke up from his sleep around 2 AM he still had the pain. He described the pain as pressure. He denies any aggravating or ameliorating factors to the pain. Associated with his symptoms is lightheadedness. He denies any nausea, vomiting or diaphoresis. At the emergency department his troponin was elevated at 148. At the time of hospitalist evaluation his substernal chest pain has dramatically improved. However he reported new left-sided chest pain. [facility] Medical History Acute blood loss anemia Anemia Arthritis Atherosclerosis of coronary artery of [place] heart with angina pectoris Atrial fibrillation BPH (benign prostatic hyperplasia) Bruising Cancer Carotid artery disease Chronic systolic (congestive) heart failure Constipation DDD (degenerative disc disease) Essential (primary) hypertension GERD (gastroesophageal reflux disease) Hematuria Hiatal hernia History of non-ST elevation myocardial infarction (NSTEMI) (12/27/21) HLD (hyperlipidemia) Irregular heart beat Ischemic cardiomyopathy Left bundle branch block (LBBB) Left carotid artery stenosis Male hypogonadism [place] (myocardial infarction) Non-smoker Nonsustained ventricular tachycardia 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 infarction Pacemaker Paroxysmal atrial fibrillation Polycythemia Secondary pulmonary arterial hypertension Segmental and somatic dysfunction of pelvic region Segmental and somatic dysfunction of thoracic region Shortness of breath on exertion Sinus drainage TIA (transient ischemic attack) Wears dentures Wears glasses Home Medications pantoprazole 40 mg tablet,delayed release 40 mg PO DAILY ACID REFLUX 10/29/16 [History Last Taken 10/20/22] nitroglycerin 0.4 mg sublingual tablet 0.4 mg sublingual Q5-15M PRN chest pain #25 tabs 07/22/20 [Rx Last Taken 09/24/22] fluticasone propionate 50 mcg/actuation nasal spray,suspension 2 spray intranasal DAILY PRN NASAL DECONGESTION 08/09/21 [History Last Taken Unknown] clopidogrel 75 mg tablet (Plavix) 75 mg PO DAILY BLOOD THINNER 09/26/22 [History Last Taken 10/19/22 21:00] fluconazole 150 mg tablet 150 mg PO TH ANTIFUNGAL 09/26/22 [History Last Taken 09/22/22] levocetirizine 5 mg tablet 5 mg PO DAILY SKIN 09/26/22 [History Last Taken 09/25/22] rivaroxaban 20 mg tablet (Xarelto) 20 mg PO QPM BLOOD THINNER 09/26/22 [History Last Taken 10/18/22] sacubitril 24 mg-valsartan 26 mg tablet (Entresto) 1 tab PO BID HEART FAILURE 09/26/22 [History Last Taken 10/20/22] potassium chloride 20 mEq tablet,extended release(part/cryst) 20 meq PO DAILY #30 tabs 09/28/22 [Rx Last Taken Unknown] carvedilol 6.25 mg tablet 3.125 mg PO BID HEART 10/11/22 [History Last Taken 10/20/22] furosemide 40 mg tablet 20 mg PO DAILY PRN weight gain #60 tabs 10/27/22 [Rx Last Taken Unknown] Allergy/AdvReac Type Severity Reaction Status Date / Time hydrochlorothiazide Allergy Severe Severe Verified 10/19/22 07:25 itching rash promethazine [From Phenergan] Allergy Other Verified 10/19/22 07:25 apixaban [From Eliquis] AdvReac Severe All over Verified 10/19/22 07:25 itching and rash ranolazine [From Ranexa] AdvReac Severe Rash Verified 10/19/22 07:25 omeprazole AdvReac Unknown Verified 10/19/22 07:25 Phenothiazines AdvReac Unknown Verified 10/19/22 07:25 Mrisrzv-JFS-KtP Reductase AdvReac myalgias Verified 10/19/22 07:25 Inhibitor [Sqnqfna-Xhg-Bha Reductase Inhibitor] PHENEGRANZOLE AdvReac Unknown Uncoded 10/19/22 07:25 Family History Father , Age 37 from [place] CAD (coronary artery disease) Myocardial infarction Sudden cardiac Mother , age 96 Diabetes Surgical History History of appendectomy History of cataract surgery History of coronary artery stent placement (04/19/21) History of electrophysiologic study (2009) History of hernia repair History of implantable cardiac defibrillator (ICD) (05/17/10) History of intraocular lens implant History of left heart catheterization (08/09/21) History of transurethral resection of prostate (12/16/20) Social History Smoking Status: Never smoker alcohol intake: never substance use type: does not use caffeine: Yes Type: carbonated beverages Number of servings: 1 and coffee Number of servings: 1 what type of physical activity do you participate in: none ROS ROS Narrative Pertinent positives and pertinent negatives as noted in HPI. All other systems were reviewed and are negative Vital Signs Vital Signs Vital Signs: 11/16/22 03:34 11/16/22 03:58 11/16/22 04:26 Temperature 98.3 F Temperature Source Temporal Pulse Rate 74 69 Respiratory Rate 17 15 Blood Pressure 125/60 H Blood Pressure Mean 81 Pulse Ox 99 97 Oxygen Delivery Method Room Air Room Air Room Air Weight Weight: 79.2 kg Body Mass Index (BMI) 25.0 Physical Exam Narrative Physical exam: General: Well-nourished, well-developed. Head: Normocephalic, atraumatic, no tenderness Eyes: Vision is grossly intact. EOMI ENT, no trauma, moist mucous membranes, no rhinorrhea Neck: Nontender, No thyromegaly. CVS: Regular rate and rhythm. S1-S2 present. No murmur, gallop or rub. Respiratory : clear to auscultation bilaterally, chest wall nontender Abdomen: Soft, nontender, nondistended, normal bowel sounds, no masses : Deferred Back: Nontender, no CVA tenderness, no midline spinal tenderness, deformities, step-offs Extremities: Nontender full range of motion, no trauma Skin: Normal color, no trauma, abrasions Neuro: Alert, oriented, cranial nerves II through XII grossly intact. Psychiatry: Normal mood. Normal affect. Not depressed. Not anxious. Results Lab / Micro Data Result Diagrams: 11/16/22 03:40 11/16/22 03:40 Labs: Laboratory Results - last 24 hr 11/16/22 03:40: WBC 6.4, RBC 3.76 L, Hgb 11.5 L, Hct 36.5 L, MCV 97.1 H, MCH 30.6, MCHC 31.5 L, RDW Std Deviation 57.8 H, RDW Coeff of [place]ane 16.4 H, Plt Count 174, MPV 13.0 H, Immature Gran % (Auto) 0.300, Neut % (Auto) 60.7, Lymph % (Auto) 29.2, [place] % (Auto) 6.6, Eos % (Auto) 2.4, Baso % (Auto) 0.8, Absolute Neuts (auto) 3.9, Absolute Lymphs (auto) 1.86, Nucleated RBC % 0, Differential Comment SCANNED 11/16/22 03:40: Sodium 139, Potassium 3.7, Chloride 107, Carbon Dioxide 27.0, Anion Gap 5, BUN 23 H, Creatinine 1.25, Estim Creat Clear Calc 43.80, Est GFR (MDRD) Af Amer 70, Est GFR (MDRD) Non-Af 58 L, BUN/Creatinine Ratio 18.4, Glucose 140 H, Calcium 9.2, Troponin I High Sens 149 H* Radiology Impression Chest X-Ray 11/16/22 03:44 IMPRESSION: Mild COPD with chronic appearing bilateral perihilar lung markings. Electronically Signed: Gary Mackenzie MD at 4:23 EDT , Assessment & Plan Assessment/Plan (1) Chest pain: QUALIFIERS: Chest pain type: unspecified Qualified Code(s): R07.9 - Chest pain, unspecified (2) Elevated troponin: PLAN: Plan Chest pain with elevated troponin Place on a monitored bed at the progressive care unit. Impression of chest x-ray by radiologist:Mild COPD with chronic appearing bilateral perihilar lung markings. Actual CXR image was independently visualized. I agree with radiologist interpretation. Actual EKG tracing was independently visualized. EKG tracing showed left bundle branch block which is unchanged from EKG in September 2022. Received full dose aspirin at the emergency department. Plavix continued. SL NTG 0.4 mg prn as needed for chest pain ordered. Xarelto continued. Initial high sensitive troponin was 149. Trend. Of note on 09/26/2022 patient has a troponin was 152 but declined up to 4328. Patient had heart cath on 09/28/2022. Conclusion of the heart cath was severe [place] coronary artery disease previously stented LAD, circumflex artery with some in-stent stenosis noted but no definite high-grade stenosis present. Right coronary artery also had mid segment stent stent with minimal in-stent stenosis. Recommendations was medical therapy. With recent cardiac cath we will consult cardiology. Chronic heart failure with reduced ejection fraction Echocardiogram on 09/27/2022 showed estimated ejection fraction of 15%. Moderate pulmonary artery dilatation. Moderate tricuspid valve insufficiency. Pulm artery systolic pressure was 76 mmHg, severe pulmonary hypertension. On Lasix 20 mg p.o. daily as needed that he took about 2 days ago because reportedly he gained 2 pounds at that time. Stable. Continue guideline directed medical therapy of carvedilol and Entresto. Chronic anemia Hemoglobin presentation was 11.5, stable. Trend. DVT prophylaxis: Not indicated as patient is on Xarelto and Xarelto has been continued. Charges/Coding Visit Charges Inpatient E&M: 98159 Init Hosp L2
[2022-11-16 05:48] LABS: Reflex Troponin-HS? (from REC) Y
[2022-11-16 06:51] LABS: Troponin-I HS 212 pg/mL (3.0-78.0)
--- NOTE | 2022-11-16 07:45 | PCM.PN.HOSP ---
Reason for Visit Reason for Visit: Diagnoses Chest pain, unspecified (11/16/22) Other specified abnormalities of plasma proteins (11/16/22) Subjective Subjective Follow-up for elevated troponin, chest pain on exertion anginal quality and severe chronic heart failure status post AICD. Objective Data Objective Data Vital Signs: Vital Signs Temp Pulse Resp BP Pulse Ox O2 Del Method 98 F 79 18 138/83 H 100 Room Air 11/16/22 06:30 11/16/22 06:30 11/16/22 06:30 11/16/22 06:30 11/16/22 06:30 11/16/22 06:30 Oxygen Delivery Method Room Air Weight: 171 lb 4.787 oz Body Mass Index (BMI) 24.5 Lab / Micro Data Result Diagrams: 11/16/22 03:40 11/16/22 03:40 Labs: Laboratory Results - last 24 hr 11/16/22 03:40: WBC 6.4, RBC 3.76 L, Hgb 11.5 L, Hct 36.5 L, MCV 97.1 H, MCH 30.6, MCHC 31.5 L, RDW Std Deviation 57.8 H, RDW Coeff of Dane 16.4 H, Plt Count 174, MPV 13.0 H, Immature Gran % (Auto) 0.300, Neut % (Auto) 60.7, Lymph % (Auto) 29.2, [place] % (Auto) 6.6, Eos % (Auto) 2.4, Baso % (Auto) 0.8, Absolute Neuts (auto) 3.9, Absolute Lymphs (auto) 1.86, Nucleated RBC % 0, Differential Comment SCANNED 11/16/22 03:40: Sodium 139, Potassium 3.7, Chloride 107, Carbon Dioxide 27.0, Anion Gap 5, BUN 23 H, Creatinine 1.25, Estim Creat Clear Calc 43.80, Est GFR (MDRD) Af Amer 70, Est GFR (MDRD) Non-Af 58 L, BUN/Creatinine Ratio 18.4, Glucose 140 H, Calcium 9.2, Troponin I High Sens 149 H* 11/16/22 06:14: Troponin I High Sens 212 H* Radiography Diagnostic Testing: Radiology Impression Chest X-Ray 11/16/22 03:44 IMPRESSION: Mild COPD with chronic appearing bilateral perihilar lung markings. Electronically Signed: Gary Mackenzie MD at 4:23 EDT , Physical Exam Narrative Seen and examined. environmental monitoring specialist shows paced rhythm. Patient recently had AICD, batteries were changed. As per patient wires were not changed. Patient has symptoms of chronic heart failure but gradually getting worse. About 6 months to 12 months ago he was getting short of breath on walking outside the house but now even within the house. He can climb 3 steps. Physical exam General: Alert, Oriented x3, Cooperative HEENT: Atraumatic, PERRLA, EOMI, Normocephalic Oral: No Gingival or Mucosal Lesions/ Ulcerations Neck: Supple, No JVD, Negative Carotid Bruits Chest wall/lungs: Air entry diminished in bilateral lung bases. No crepitation/rhonchi Cardiovascular: Right-sided upper AICD. Incision line healthy. Paced rhythm, Normal S1, Normal S2, systolic murmur LLSB and cardiac apex. Abdomen: Bowel Sounds Present, Soft, Non Tender, Non-Distended : No renal angle tenderness. No suprapubic tenderness. Extremities: No significant edema, Capillary Refill Less than 3 Seconds Skin: No rashes, No breakdown Musculoskeletal: No Tenderness to Palpation of Joints or Extremities. 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 Assessment & Plan Assessment/Plan (1) Chest pain: QUALIFIERS: Chest pain type: unspecified Qualified Code(s): R07.9 - Chest pain, unspecified (2) Elevated troponin: PLAN: Plan 87-year-old gentleman admitted with chest pain started about 8 PM on day of admission. Chest pain is fairly persistent but exacerbates with exertion, waxing and waning. About 2 AM pain got worse therefore patient came to ED. Patient has extensive history of coronary artery disease with 9 MIs and 8 stents. The patient was last admitted in September for CHF exacerbation. 1. Atypical chest pain: Patient is admitted on the monitored bed in PCU. 2 troponins 149 and 212. Chest x-ray shows chronic LBBB unchanged from previous EKG. Last heart cath on 09/28/2022 shows severe [place] CAD, LAD with proximal region 50% ostial stenosis, 30 to 40% diffuse stenosis in previously placed stents, circumflex artery with in-stent stenosis noted but no definite high-grade stenosis present.RCA also had mid segment stent stent with minimal in-stent stenosis. Recommendations was medical therapy. Patient is on Plavix, Xarelto, Entresto. Cardiology is consulted. Patient was given aspirin 324 mg in ED but he is not on aspirin at home. 2. Chronic heart failure with reduced ejection fraction: Patient had AICD for secondary prevention, NYHA class III. Device generator was replaced on 10/20/2022. Discussed with the bacon de rinder. ICD interrogation ordered. Heart rate is paced rhythm 79 with normal blood pressure Echocardiogram on 09/27/2022 showed estimated ejection fraction of 15%. Moderate pulmonary artery dilatation. Moderate tricuspid valve insufficiency. Pulm artery systolic pressure was 76 mmHg, severe pulmonary hypertension. On Lasix 20 mg p.o. daily as needed that he took about 2 days ago because reportedly he gained 2 pounds at that time. Stable. Continue guideline directed medical therapy of carvedilol and Entresto. 3. Chronic anemia Hemoglobin presentation was 11.5, stable. Trend. 4. DVT prophylaxis: Not indicated as patient is on Xarelto and Xarelto has been continued. Charges/Coding Visit Charges Inpatient E&M: 18249 Subs Hosp L2
--- NOTE | 2022-11-16 09:20 | PCM.CONS.C ---
Assessment & Plan Assessment/Plan (1) Elevated troponin: PLAN: Mildly elevated troponin. Likely patient's baseline. No significant upward or downward trend. Patient has had his troponins checked on his admission in September of this year when they were noted to be more than 1000. Coronary angiography was performed at the time which failed to reveal any acute lesion. Likely type II elevation with hypertension and tachycardia superimposed on ischemic cardiomyopathy and severe coronary artery disease. Continue medical management. Discussed with patient. Understands and agrees. (2) Coronary artery disease: PLAN: See #1 above. Continue patient's clopidogrel. Also resume patient's rivaroxaban that he takes for his paroxysmal atrial fibrillation. Increase beta-blockers. Start on nitrates. (3) Ischemic cardiomyopathy: PLAN: Chronic systolic congestive heart failure. Continue Entresto, beta-blockers. (4) History of implantable cardiac defibrillator (ICD): PLAN: Periodic interrogation. (5) Paroxysmal atrial fibrillation: PLAN: Will interrogate ICD to see for episodes of paroxysmal atrial fibrillation. HPI Consult Data Date of Consult: 11/16/22 HPI Narrative Reason for Consultation: Chest pain HPI Narrative: The patient has history of severe coronary artery disease with multiple percutaneous interventions in the past including to the left main coronary artery. Also has history of ischemic cardiomyopathy. Ejection fraction of 15%. Status post ICD. Patient developed anterior chest tightness yesterday in the evening. No associated shortness of breath. No nausea or vomiting. According to the patient, his systolic blood pressure recheck was 160 mmHg and heart rate was above 100/min. Denies any palpitations. Patient took some Mylanta for relief of his anterior chest discomfort. As this failed to relieve his discomfort, he presented to the emergency room. His troponins are noted to be mildly elevated. By the time the patient presented to the emergency room, he reports that his chest pain had been completely relieved on its own. Patient denies any effort angina. He does get short of breath with moderate exertion. This however has been stable. Denies any orthopnea. No PND. No ankle edema. [facility] Medical History (Updated 11/16/22 @ 09:[address] Brandon Landin MD) Acute blood loss anemia Anemia Arthritis Atherosclerosis of coronary artery of [place] heart with angina pectoris Atrial fibrillation BPH (benign prostatic hyperplasia) Bruising Cancer Carotid artery disease Chronic systolic (congestive) heart failure Constipation DDD (degenerative disc disease) Essential (primary) hypertension GERD (gastroesophageal reflux disease) Hematuria Hiatal hernia History of non-ST elevation myocardial infarction (NSTEMI) (12/27/21) HLD (hyperlipidemia) Irregular heart beat Ischemic cardiomyopathy Left bundle branch block (LBBB) Left carotid artery stenosis Male hypogonadism [place] (myocardial infarction) Non-smoker Nonsustained ventricular tachycardia 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 infarction Pacemaker Paroxysmal atrial fibrillation Polycythemia Secondary pulmonary arterial hypertension Segmental and somatic dysfunction of pelvic region Segmental and somatic dysfunction of thoracic region Shortness of breath on exertion Sinus drainage TIA (transient ischemic attack) Wears dentures Wears glasses Home Medications pantoprazole 40 mg tablet,delayed release 40 mg PO DAILY ACID REFLUX 10/29/16 [History Last Taken 10/20/22] nitroglycerin 0.4 mg sublingual tablet 0.4 mg sublingual Q5-15M PRN chest pain #25 tabs 07/22/20 [Rx Last Taken 09/24/22] fluticasone propionate 50 mcg/actuation nasal spray,suspension 2 spray intranasal DAILY PRN NASAL DECONGESTION 08/09/21 [History Last Taken Unknown] clopidogrel 75 mg tablet (Plavix) 75 mg PO DAILY BLOOD THINNER 09/26/22 [History Last Taken 10/19/22 21:00] fluconazole 150 mg tablet 150 mg PO TH ANTIFUNGAL 09/26/22 [History Last Taken 09/22/22] levocetirizine 5 mg tablet 5 mg PO DAILY SKIN 09/26/22 [History Last Taken 09/25/22] rivaroxaban 20 mg tablet (Xarelto) 20 mg PO QPM BLOOD THINNER 09/26/22 [History Last Taken 10/18/22] sacubitril 24 mg-valsartan 26 mg tablet (Entresto) 1 tab PO BID HEART FAILURE 09/26/22 [History Last Taken 10/20/22] potassium chloride 20 mEq tablet,extended release(part/cryst) 20 meq PO DAILY #30 tabs 09/28/22 [Rx Last Taken Unknown] carvedilol 6.25 mg tablet 3.125 mg PO BID HEART 10/11/22 [History Last Taken 10/20/22] furosemide 40 mg tablet 20 mg PO DAILY PRN weight gain #60 tabs 10/27/22 [Rx Last Taken Unknown] Allergy/AdvReac Type Severity Reaction Status Date / Time hydrochlorothiazide Allergy Severe Severe Verified 10/19/22 07:25 itching rash promethazine [From Phenergan] Allergy Other Verified 10/19/22 07:25 apixaban [From Eliquis] AdvReac Severe All over Verified 10/19/22 07:25 itching and rash ranolazine [From Ranexa] AdvReac Severe Rash Verified 10/19/22 07:25 omeprazole AdvReac Unknown Verified 10/19/22 07:25 Phenothiazines AdvReac Unknown Verified 10/19/22 07:25 Ttcsyzt-CFP-YpL Reductase AdvReac myalgias Verified 10/19/22 07:25 Inhibitor [Lhdigqk-Xai-Pyu Reductase Inhibitor] PHENEGRANZOLE AdvReac Unknown Uncoded 10/19/22 07:25 Family History Father , Age 37 from [place] CAD (coronary artery disease) Myocardial infarction Sudden cardiac Mother , age 96 Diabetes Surgical History History of appendectomy History of cataract surgery History of coronary artery stent placement (04/19/21) History of electrophysiologic study (2009) History of hernia repair History of implantable cardiac defibrillator (ICD) (05/17/10) History of intraocular lens implant History of left heart catheterization (08/09/21) History of transurethral resection of prostate (12/16/20) Social History Smoking Status: Never smoker alcohol intake: never substance use type: does not use caffeine: Yes Type: carbonated beverages Number of servings: 1 and coffee Number of servings: 1 what type of physical activity do you participate in: none Physical Exam Narrative Comfortable. No distress. Heart sounds 1 and 2 are normal. Chest clear to auscultation bilaterally. Abdomen soft. Alert oriented x3. No ankle edema noted. Risk Stratification Risk Stratification Applicable: No Objective Data Vital Signs: Vital Signs Temp Pulse Resp BP Pulse Ox O2 Del Method 98 F 79 18 138/83 H 100 Room Air 11/16/22 06:30 11/16/22 06:30 11/16/22 06:30 11/16/22 06:30 11/16/22 06:46 11/16/22 06:46 Oxygen Delivery Method Room Air Weight: 171 lb 4.787 oz Body Mass Index (BMI) 24.5 Lab / Micro Data Attestation: I reviewed the patient's lab results. Result Diagrams: 11/16/22 03:40 11/16/22 03:40 Labs: Laboratory Results - last 24 hr 11/16/22 03:40: WBC 6.4, RBC 3.76 L, Hgb 11.5 L, Hct 36.5 L, MCV 97.1 H, MCH 30.6, MCHC 31.5 L, RDW Std Deviation 57.8 H, RDW Coeff of [place] 16.4 H, Plt Count 174, MPV 13.0 H, Immature Gran % (Auto) 0.300, Neut % (Auto) 60.7, Lymph % (Auto) 29.2, [place] % (Auto) 6.6, Eos % (Auto) 2.4, Baso % (Auto) 0.8, Absolute Neuts (auto) 3.9, Absolute Lymphs (auto) 1.86, Nucleated RBC % 0, Differential Comment SCANNED 11/16/22 03:40: Sodium 139, Potassium 3.7, Chloride 107, Carbon Dioxide 27.0, Anion Gap 5, BUN 23 H, Creatinine 1.25, Estim Creat Clear Calc 43.80, Est GFR (MDRD) Af Amer 70, Est GFR (MDRD) Non-Af 58 L, BUN/Creatinine Ratio 18.4, Glucose 140 H, Calcium 9.2, Troponin I High Sens 149 H* 11/16/22 06:14: Troponin I High Sens 212 H* Rhythm Strip Rhythm Strip: Sinus Rhythm Cardiology Labs/Tests 11/16/22 03:40: WBC 6.4, RBC 3.76 L, Hgb 11.5 L, Hct 36.5 L, MCV 97.1 H, MCH 30.6, MCHC 31.5 L, Plt Count 174, MPV 13.0 H, Immature Gran % (Auto) 0.300, Neut % (Auto) 60.7, Lymph % (Auto) 29.2, [place] % (Auto) 6.6, Eos % (Auto) 2.4, Baso % (Auto) 0.8, Absolute Neuts (auto) 3.9, Nucleated RBC % 0 11/16/22 03:40: Sodium 139, Potassium 3.7, Chloride 107, Carbon Dioxide 27.0, Anion Gap 5, BUN 23 H, Creatinine 1.25, Est GFR (MDRD) Af Amer 70, Est GFR (MDRD) Non-Af 58 L, BUN/Creatinine Ratio 18.4, Glucose 140 H, Calcium 9.2 Rhythm: EKG: Normal sinus rhythm with left bundle branch block ECHO: Stress Test: Cardiac Cath: PCI: CT Surgery: Holter monitor: EPS: PPM: CXR: Chest CT Scan: Radiography Diagnostic Testing: Radiology Impression Chest X-Ray 11/16/22 03:44 IMPRESSION: Mild COPD with chronic appearing bilateral perihilar lung markings. Electronically Signed: Gary Mackenzie MD at 4:23 EDT ,
--- NOTE | 2022-11-16 09:41 | NURSING ---
pacemaker interrogation complete
[2022-11-16] MEDS: Potassium Chloride Oral Tablet 20 MEQ PO (10:31)
[2022-11-16] MEDS: Pantoprazole Sodium 40 MG Tablet PO (10:31)
[2022-11-16] MEDS: Clopidogrel Bisulfate 75 MG Tablet PO (10:31)
[2022-11-16] MEDS: SACUBITRIL/VALSARTAN 24/26 MG TABLET 1 EACH PO ×2 (10:31→22:45)
[2022-11-16] MEDS: Isosorbide Mononitrate 30 MG Tablet PO (10:35)
[2022-11-16] MEDS: Carvedilol 6.25 MG Tablet PO ×2 (10:36→22:45)
[2022-11-16 11:31] LABS: Troponin-I HS 338 pg/mL (3.0-78.0)
[2022-11-16] MEDS: Rivaroxaban 20 MG Tablet PO (22:45)
[2022-11-17 05:12] LABS: Absolute Lymphocyte Count 1.23 X10^3/uL (0.83-4.51); Absolute Neutrophil Count 3.7 X10^3/uL (2.0-7.7); Basophil# 0.06 X10^3/uL; Basophil% 1.1 % (0-1); Eosinophil# 0.13 X10^3/uL; Eosinophils% 2.4 % (0-5); Hematocrit 32.8 % (40-54); Hemoglobin 10.2 g/dL (13.0-16.5); Lymphocyte # 1.23 X10^3/ul (0.83-4.51); Lymphocyte % 22.5 % (19-41); Mean Corp Hgb Conc 31.1 g/dL (32-36); Mean Corpuscular Hgb 30.4 pg (27.0-32.0); Mean Corpuscular Volume 97.6 fL (80-94); Mean Platelet Vol. 13.6 fl (6.2-12.0); Monocyte# 0.38 X10^3/uL; Monocyte% 6.9 % (0-10); NRBC Flagged by Analyzer 0 % (0-5); Neutrophil # 3.66 X10^3/uL (2.7-7.7); Neutrophil % 66.9 % (47-70); Platelet Count 136 K/mm3 (150-450); RBC Distribution Width CV 16.3 % (11.6-14.6); RBC Distribution Width SD 58.9 fl (35.1-43.9); Red Blood Count 3.36 M/mm3 (4.6-6.2); White Blood Count 5.5 K/mm3 (4.4-11.0)
[2022-11-17 05:38] LABS: Anion Gap 2 (5-15); BUN 22 mg/dL (7-18); BUN/Creat Ratio 20.6 RATIO (10-20); Calcium,Total 8.8 mg/dL (8.5-10.1); Chloride 109 mmol/L (98-107); Creatinine, Serum 1.07 mg/dL (0.70-1.30); EST Glomerular Filtration Rate 70 mL/min (>60); Est Glom Filt Rate - Afr Amer 84 mL/min (>60); Estimated Creatinine Clearance 51.17 ml/min; Glucose 98 mg/dL (74-106); Potassium 3.9 mmol/L (3.5-5.1); Sodium Level 137 mmol/L (136-145)
[2022-11-17 06:10] VITALS: BP 110/70; PULSE 79; RESP 18; TEMP 36.7; O2SAT 95
--- NOTE | 2022-11-17 07:45 | DCINST_ITS ---
Discharge Instructions Diet Discharge Diet: 8 Cup Fluid Restriction and 2000 mg Sodium Diet Activity Discharge Activity: Return to Normal Activity and May Not Drive Weight Bearing Status: Weight bearing as tolerated Dressing / Incision Call your doctor if you observe: Fever of 101 or Higher, Coldness, Increased Pain, Numbness or Tingling, Change in Color, Inability to urinate, Inability to have a bowel movement, Shortness of breath, Dizziness, Fainting spells, Swelling in the ankles, Chest pain, Prolonged hiccupping, Increased palpitations (irregular heartbeat) and Calf discomfort Follow Up Care When: IN 2 WEEKS Test Results: Test results from this visit will be discussed in further detail at your follow- up appointment, if applicable. Discharge Plan Admission Admit Date/Time: 11/16/22 05:15 Primary Reason for Your Visit: Elevated troponin likely type II event, chronic HFrEF, coronary artery stat Attending Provider: Rui Mcleod Primary Care Provider: Jacques Pena Chi Consulting Providers: Jose Orozco ; Brandon Landin Discharge Orders/Prescriptions Prescriptions: New carvedilol 6.25 mg Tablet 6.25 mg PO BID 30 Days Qty: 60 2RF isosorbide mononitrate 30 mg Tablet Extended Release 24 Hr 30 mg PO DAILY 30 Days Qty: 30 2RF Continued pantoprazole 40 MG tablet 40 mg PO DAILY fluticasone propionate 50 mcg/actuation spray,suspension 2 spray INTRANASAL DAILY PRN (Reason: NASAL DECONGESTION) fluconazole 150 mg tablet 150 mg PO TH levocetirizine 5 mg tablet 5 mg PO DAILY clopidogrel [Plavix] 75 mg tablet 75 mg PO DAILY Xarelto 20 mg tablet 20 mg PO QPM Entresto 24-26 mg tablet 1 tab PO BID potassium chloride 20 mEq tablet,ER particles/crystals 20 meq PO DAILY Qty: 30 0RF nitroglycerin 0.4 mg tablet, sublingual 0.4 mg sublingual Q5-15M PRN (Reason: chest pain) Qty: 30 3RF Changed furosemide 40 mg tablet 40 mg PO DAILY PRN (Reason: weight gain) Qty: 60 0RF Discontinued carvedilol 6.25 mg tablet 3.125 mg PO BID Referrals / Follow Up: Jacques Pena Chi, MD [Primary Care Provider] - Within 2 Weeks Disposition Disposition (needs filled in before D/C Order can be placed): Home, Self Care
--- NOTE | 2022-11-17 08:21 | DS.PCM_ITS ---
Providers Date of Admission: 11/16/22 Date of Discharge: 11/17/22 Primary Care Physician: Dr. Jacques Pena MD Consultations 11/16/22 06:05 Consult: Cardiology Routine Consulting Provider: Brandon Landin Reason for Consult: Chest Pain; elevated troponin EMERGENT Consult: No MD Notified: Yes Date Notified: 11/16/22 Time Notified: 07:17 Method of Notification: Text Reason For Visit: ELEVATED TROPONIN Diagnosis Discharge Diagnosis (1) Elevated troponin: Status: Acute Code(s): R77.8 - Other specified abnormalities of plasma proteins (2) Coronary artery disease: Status: Acute Code(s): I25.10 - Atherosclerotic heart disease of [place] coronary artery without angina pectoris (3) Ischemic cardiomyopathy: Status: Chronic Code(s): I25.5 - Ischemic cardiomyopathy (4) History of implantable cardiac defibrillator (ICD): Status: Chronic Code(s): Z95.810 - Presence of automatic (implantable) cardiac defibrillator (5) Paroxysmal atrial fibrillation: Status: Acute Code(s): I48.0 - Paroxysmal atrial fibrillation Plan 87-year-old gentleman admitted with chest pain started about 8 PM on day of admission. Chest pain is fairly persistent but exacerbates with exertion, waxing and waning. About 2 AM pain got worse therefore patient came to ED. Patient has extensive history of coronary artery disease with 9 MIs and 8 stents. The patient was last admitted in September for CHF exacerbation. 1. Atypical chest pain: Patient is admitted on the monitored bed in PCU. 3 high-sensitivity troponins 149 and 212 and 338. Chest x-ray shows chronic LBBB unchanged from previous EKG. Last heart cath on 09/28/2022 shows severe [place] CAD, LAD with proximal region 50% ostial stenosis, 30 to 40% diffuse stenosis in previously placed stents, circumflex artery with in-stent stenosis noted but no definite high-grade stenosis present.RCA also had mid segment stent stent with minimal in-stent stenosis. Recommendations was medical therapy. Patient is on Plavix, Xarelto, Entresto. Cardiology consulted. Patient was given aspirin 324 mg in ED but he is not on aspirin at home. 11/17: Patient was seen and evaluated by local bulk driver on 11/16 and discussed with him. It is likely type II ND event. Patient has chronically elevated troponin, since April 2021. It might be elevated due to tachycardia and hypertension and superimposed ischemic cardiomyopathy and severe coronary artery disease. 2. Chronic heart failure with reduced ejection fraction: Patient had AICD for secondary prevention, NYHA class III. Device generator was replaced on 10/20/2022. Discussed with the local bulk driver. ICD interrogation ordered. Heart rate is paced rhythm 79 with normal blood pressure Echocardiogram on 09/27/2022 showed estimated ejection fraction of 15%. Moderate pulmonary artery dilatation. Moderate tricuspid valve insufficiency. Pulm artery systolic pressure was 76 mmHg, severe pulmonary hypertension. On Lasix 20 mg p.o. daily as needed that he took about 2 days ago because reportedly he gained 2 pounds at that time. Stable. Continue guideline directed medical therapy of carvedilol and Entresto. 11/17: AICD interrogation was done on [place] new finding as per local bulk driver. Carvedilol increased to 6.25 mg twice daily. Lasix dose increased to 40 mg as needed and patient understands well that he has to take it if he has weight gain of about 4 to 5 pounds. He has been checking weight every day in the morning. New prescription for Imdur 30 mg daily given. Prescription for refill for sublingual nitro given also given 3. Chronic anemia Hemoglobin presentation was 11.5, stable. Trend. 10: Hemoglobin does not show major change. Hemoglobin 10.2 today. 4. DVT prophylaxis: Not indicated as patient is on Xarelto and Xarelto has been continued. Discharge medication reconciliation done. Discharge follow-up instructions completed. Discharge process discussed with the patient and all questions were answered to patient's satisfaction. Total time spent, exact 35 minutes on discharge meds reconciliation, examination, coordination of care with nurses and ancillary staff, review of imaging and blood test and discussion with the patient on follow-up instructions. Discharged home. Laboratory Results 11/16/22 10:08: Troponin I High Sens 338 H* 11/17/22 03:54: WBC 5.5, RBC 3.36 L, Hgb 10.2 L, Hct 32.8 L, MCV 97.6 H, MCH 30.4, MCHC 31.1 L, RDW Std Deviation 58.9 H, RDW Coeff of Dane 16.3 H, Plt Count 136 L, MPV 13.6 H, Immature Gran % (Auto) 0.200, Neut % (Auto) 66.9, Lymph % (Auto) 22.5, [place] % (Auto) 6.9, Eos % (Auto) 2.4, Baso % (Auto) 1.1 H, Absolute Neuts (auto) 3.7, Absolute Lymphs (auto) 1.23, Nucleated RBC % 0 11/17/22 03:54: Sodium 137, Potassium 3.9, Chloride 109 H, Carbon Dioxide 26.0, Anion Gap 2 L, BUN 22 H, Creatinine 1.07, Estim Creat Clear Calc 51.17, Est GFR (MDRD) Af Amer 84, Est GFR (MDRD) Non-Af 70, BUN/Creatinine Ratio 20.6 H, Glucose 98, Calcium 8.8 Medications at Discharge Home Medications pantoprazole 40 mg tablet,delayed release 40 mg PO DAILY ACID REFLUX 10/29/16 fluticasone propionate 50 mcg/actuation nasal spray,suspension 2 spray intranasal DAILY PRN NASAL DECONGESTION 08/09/21 clopidogrel 75 mg tablet (Plavix) 75 mg PO DAILY BLOOD THINNER 09/26/22 fluconazole 150 mg tablet 150 mg PO TH ANTIFUNGAL 09/26/22 levocetirizine 5 mg tablet 5 mg PO DAILY SKIN 09/26/22 rivaroxaban 20 mg tablet (Xarelto) 20 mg PO QPM BLOOD THINNER 09/26/22 sacubitril 24 mg-valsartan 26 mg tablet (Entresto) 1 tab PO BID HEART FAILURE 09/26/22 potassium chloride 20 mEq tablet,extended release(part/cryst) 20 meq PO DAILY #30 tabs 09/28/22 carvedilol 6.25 mg tablet 6.25 mg PO BID 30 days #60 tabs 11/17/22 furosemide 40 mg tablet 40 mg PO DAILY PRN weight gain #60 tabs 11/17/22 isosorbide mononitrate 30 mg tablet,extended release 24 hr 30 mg PO DAILY 30 days #30 tabs 11/17/22 nitroglycerin 0.4 mg sublingual tablet 0.4 mg sublingual Q5-15M PRN chest pain #30 tabs 11/17/22 Physical Exam Narrative Seen and examined. No chest pain or shortness of breath. Patient walked around the nursing station and tolerated well. load mixer shows paced rhythm. Patient recently had AICD, batteries were changed. As per patient wires were not changed. Physical exam General: Alert, Oriented x3, Cooperative HEENT: Atraumatic, PERRLA, EOMI, Normocephalic Oral: No Gingival or Mucosal Lesions/ Ulcerations Neck: Supple, No JVD, Negative Carotid Bruits Chest wall/lungs: Air entry diminished in bilateral lung bases. No crepitation/rhonchi Cardiovascular: Right-sided upper AICD. Incision line healthy. Paced rhythm, Normal S1, Normal S2, systolic murmur LLSB and cardiac apex. Abdomen: Bowel Sounds Present, Soft, Non Tender, Non-Distended : No renal angle tenderness. No suprapubic tenderness. Extremities: No significant edema, Capillary Refill Less than 3 Seconds Skin: No rashes, No breakdown Musculoskeletal: No Tenderness to Palpation of Joints or Extremities. 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 Weight / BMI Weight Weight: 171 lb 4.787 oz Body Mass Index (BMI) 24.5 ABG / Lab / Microbiology Data Result Diagrams: 11/17/22 03:54 11/17/22 03:54 Laboratory: Laboratory Results - last 24 hr 11/16/22 10:08: Troponin I High Sens 338 H* 11/17/22 03:54: WBC 5.5, RBC 3.36 L, Hgb 10.2 L, Hct 32.8 L, MCV 97.6 H, MCH 30.4, MCHC 31.1 L, RDW Std Deviation 58.9 H, RDW Coeff of Dane 16.3 H, Plt Count 136 L, MPV 13.6 H, Immature Gran % (Auto) 0.200, Neut % (Auto) 66.9, Lymph % (Auto) 22.5, [place] % (Auto) 6.9, Eos % (Auto) 2.4, Baso % (Auto) 1.1 H, Absolute Neuts (auto) 3.7, Absolute Lymphs (auto) 1.23, Nucleated RBC % 0 11/17/22 03:54: Sodium 137, Potassium 3.9, Chloride 109 H, Carbon Dioxide 26.0, Anion Gap 2 L, BUN 22 H, Creatinine 1.07, Estim Creat Clear Calc 51.17, Est GFR (MDRD) Af Amer 84, Est GFR (MDRD) Non-Af 70, BUN/Creatinine Ratio 20.6 H, Glucose 98, Calcium 8.8 D/C Instructions Discharge Diet: 8 Cup Fluid Restriction and 2000 mg Sodium Diet Weight Bearing Status: Weight bearing as tolerated Call your doctor if you observe: Fever of 101 or Higher, Coldness, Increased Pain, Numbness or Tingling, Change in Color, Inability to urinate, Inability to have a bowel movement, Shortness of breath, Dizziness, Fainting spells, Swelling in the ankles, Chest pain, Prolonged hiccupping, Increased palpitations (irregular heartbeat) and Calf discomfort When: IN 2 WEEKS Meaningful Use Info Meaningful Use Diagnoses (Choose all that apply): None applicable Discharge Plan Admission Admit Date/Time: 11/16/22 05:15 Primary Reason for Your Visit: Elevated troponin likely type II event, chronic HFrEF, coronary artery stat Attending Provider: Rui Mcleod Primary Care Provider: Jacques Pena Chi Consulting Providers: Jose Orozco ; Brandon Landin Discharge Orders/Prescriptions Prescriptions: New carvedilol 6.25 mg Tablet 6.25 mg PO BID 30 Days Qty: 60 2RF isosorbide mononitrate 30 mg Tablet Extended Release 24 Hr 30 mg PO DAILY 30 Days Qty: 30 2RF Continued pantoprazole 40 MG tablet 40 mg PO DAILY fluticasone propionate 50 mcg/actuation spray,suspension 2 spray INTRANASAL DAILY PRN (Reason: NASAL DECONGESTION) fluconazole 150 mg tablet 150 mg PO TH levocetirizine 5 mg tablet 5 mg PO DAILY clopidogrel [Plavix] 75 mg tablet 75 mg PO DAILY Xarelto 20 mg tablet 20 mg PO QPM Entresto 24-26 mg tablet 1 tab PO BID potassium chloride 20 mEq tablet,ER particles/crystals 20 meq PO DAILY Qty: 30 0RF nitroglycerin 0.4 mg tablet, sublingual 0.4 mg sublingual Q5-15M PRN (Reason: chest pain) Qty: 30 3RF Changed furosemide 40 mg tablet 40 mg PO DAILY PRN (Reason: weight gain) Qty: 60 0RF Discontinued carvedilol 6.25 mg tablet 3.125 mg PO BID Referrals / Follow Up: Jacques Pena Chi, MD [Primary Care Provider] - Within 2 Weeks Disposition Disposition (needs filled in before D/C Order can be placed): Home, Self Care Charges/Coding Visit Charges Inpatient E&M: 64824 Disch Hosp >30min
[2022-11-17 09:26] VITALS: O2SAT 98
--- NOTE | 2022-11-17 09:47 | CASEMGMT ---
RN ZOE NOTE: Intro role of CM to patient and [facility]ANC form explained re: Observation status for treatment of .? Explained hospitalization will be paid per?his insurance policy for Outpatient billing?and condition will continue to be evaluated for Inpt necessity. Also let pt know that [facility] sends paper in the billing packet with their phone number if questions arise. Discussed Pharmacy section of BLANC form and self administered medication guideline.? Pt verbalizes understanding and does not have further questions. ?Form signed, copy made and placed in chart, and original given to pt. Pt denies having any discharge needs. He states he lives w/his , is indep w/ADL's, manages his own medications, and and he share home mgt tasks. Chris BELTRE RN CM
--- NOTE | 2022-11-17 10:31 | PHA.DC.MC ---
Pharmacy Service has performed discharge medication reconciliation and counseling for this patient. The patient was counseled on the following discharge medications and changes in medications for homegoing were reviewed. 1. IMDUR 2. COREG --> DOSE CHANGE 3. LASIX --> DOSE CHANGE The Reason for Use, instructions for use, and potential side effects were reviewed for all new medications. The patient's questions regarding all of their medications were answered. The patient was able to verbally demonstrate an understanding of their discharge medications. Home Medications pantoprazole 40 mg tablet,delayed release 40 mg PO DAILY ACID REFLUX 10/29/16 fluticasone propionate 50 mcg/actuation nasal spray,suspension 2 spray intranasal DAILY PRN NASAL DECONGESTION 08/09/21 clopidogrel 75 mg tablet (Plavix) 75 mg PO DAILY BLOOD THINNER 09/26/22 fluconazole 150 mg tablet 150 mg PO TH ANTIFUNGAL 09/26/22 levocetirizine 5 mg tablet 5 mg PO DAILY SKIN 09/26/22 rivaroxaban 20 mg tablet (Xarelto) 20 mg PO QPM BLOOD THINNER 09/26/22 sacubitril 24 mg-valsartan 26 mg tablet (Entresto) 1 tab PO BID HEART FAILURE 09/26/22 potassium chloride 20 mEq tablet,extended release(part/cryst) 20 meq PO DAILY #30 tabs 09/28/22 carvedilol 6.25 mg tablet 6.25 mg PO BID 30 days #60 tabs 11/17/22 furosemide 40 mg tablet 40 mg PO DAILY PRN weight gain #60 tabs 11/17/22 isosorbide mononitrate 30 mg tablet,extended release 24 hr 30 mg PO DAILY 30 days #30 tabs 11/17/22 nitroglycerin 0.4 mg sublingual tablet 0.4 mg sublingual Q5-15M PRN chest pain #30 tabs 11/17/22 The patient's discharge medication list was reviewed for discrepancies and discrepancies were resolved.
[2022-11-17] MEDS: Carvedilol 6.25 MG Tablet PO (10:39)
[2022-11-17] MEDS: SACUBITRIL/VALSARTAN 24/26 MG TABLET 1 EACH PO (10:39)
[2022-11-17] MEDS: Clopidogrel Bisulfate 75 MG Tablet PO (10:40)
[2022-11-17] MEDS: Potassium Chloride Oral Tablet 20 MEQ PO (10:40)
[2022-11-17] MEDS: Isosorbide Mononitrate 30 MG Tablet PO (10:40)
[2022-11-17] MEDS: Pantoprazole Sodium 40 MG Tablet PO (10:40)
[2022-11-17] MEDS: FLUCONAZOLE 150 MG TABLET PO (10:41)
[2022-11-17] MEDS: 0.9% Saline Lock 10 ML Syringe IV (10:41)
[2022-11-17 11:30] VITALS: BP 104/55; PULSE 78; RESP 16; TEMP 36.9; O2SAT 97
== END 2022-11-17 07:53 | disposition home or self-care (01) ==
LOC: ED 04:55 → PCU 05:55
PROVIDERS: Admitting Provider Hospitalist; Emergency Provider Student in an Organized Health Care Education/Training Program; PCP Family Medicine Geriatric Medicine; Visit Provider Internal Medicine
DX: R07.89 Other chest pain (principal); I50.22 Chronic systolic (congestive) heart failure; I11.0 Hypertensive heart disease with heart failure; I27.21 Secondary pulmonary arterial hypertension; I48.0 Paroxysmal atrial fibrillation; I25.10 Atherosclerotic heart disease of native coronary artery without angina pectoris; Z95.810 Presence of automatic (implantable) cardiac defibrillator; Z95.5 Presence of coronary angioplasty implant and graft; Z79.01 Long term (current) use of anticoagulants; I25.5 Ischemic cardiomyopathy; E78.5 Hyperlipidemia, unspecified; Z79.899 Other long term (current) drug therapy; Z79.02 Long term (current) use of antithrombotics/antiplatelets; I25.2 Old myocardial infarction; K21.9 Gastro-esophageal reflux disease without esophagitis; R77.8 Other specified abnormalities of plasma proteins; D64.9 Anemia, unspecified
CPT/HCPCS: 36415; 71045; 80048; 84484; 85025; 93005; 97166; 99221; 99285; A4216; G0378

== ENCOUNTER → 2023-02-01 | Outpatient (CLI) | payer MEDICARE, OTHER, SELFPAY ==
[2020-04-02 11:50] VITALS: BMI 26.2
[2023-02-01 11:31] LABS: Absolute Lymphocyte Count 0.93 X10^3/uL (0.83-4.51); Absolute Neutrophil Count 4.8 X10^3/uL (2.0-7.7); Basophil# 0.04 X10^3/uL; Basophil% 0.7 % (0-1); Eosinophil# 0.11 X10^3/uL; Eosinophils% 1.8 % (0-5); Hematocrit 36.7 % (40-54); Hemoglobin 11.9 g/dL (13.0-16.5); Lymphocyte # 0.93 X10^3/ul (0.83-4.51); Lymphocyte % 15.1 % (19-41); Mean Corp Hgb Conc 32.4 g/dL (32-36); Mean Corpuscular Hgb 31.2 pg (27.0-32.0); Mean Corpuscular Volume 96.1 fL (80-94); Mean Platelet Vol. 13.1 fl (6.2-12.0); Monocyte# 0.28 X10^3/uL; Monocyte% 4.6 % (0-10); NRBC Flagged by Analyzer 0 % (0-5); Neutrophil # 4.76 X10^3/uL (2.7-7.7); Neutrophil % 77.5 % (47-70); Platelet Count 157 K/mm3 (150-450); RBC Distribution Width CV 13.4 % (11.6-14.6); RBC Distribution Width SD 47.3 fl (35.1-43.9); Red Blood Count 3.82 M/mm3 (4.6-6.2); White Blood Count 6.1 K/mm3 (4.4-11.0)
[2023-02-01 11:58] LABS: Vitamin D,25 Hydroxy 38.8 ng/mL
[2023-02-01 12:06] LABS: ALB/GLOB Ratio 1.1 RATIO (0.9-2.4); AST(SGOT) 12 U/L (15-37); Alanine Aminotransfer ALT/SGPT 10 U/L (16-61); Albumin, Serum 3.7 g/dL (3.2-5.0); Alkaline Phosphatase 65 U/L (45-117); Anion Gap 4 (5-15); BUN 23 mg/dL (7-18); BUN/Creat Ratio 13.9 RATIO (10-20); Calcium,Total 9.5 mg/dL (8.5-10.1); Chloride 108 mmol/L (98-107); Creatinine, Serum 1.65 mg/dL (0.70-1.30); EST Glomerular Filtration Rate 42 mL/min (>60); Est Glom Filt Rate - Afr Amer 51 mL/min (>60); Globulin 3.4 g/dL (2.2-4.2); Glucose 102 mg/dL (74-106); Potassium 3.7 mmol/L (3.5-5.1); Protein, Total 7.1 g/dL (6.4-8.2); Sodium Level 142 mmol/L (136-145); Thyroid Stim Hormone (TSH) 1.06 uIU/mL (0.358-3.74)
== END | disposition home or self-care (01) ==
LOC: LAB 10:42
PROVIDERS: PCP Family Medicine Geriatric Medicine; Referring Provider Family Medicine Geriatric Medicine; Visit Provider Family Medicine Geriatric Medicine
DX: I10 Essential (primary) hypertension (principal); E55.9 Vitamin D deficiency, unspecified
CPT/HCPCS: 36415; 80053; 82306; 84443; 85025

== ENCOUNTER → 2023-05-02 | Outpatient (CLI) | payer MEDICARE, OTHER, SELFPAY ==
[2020-04-02 11:50] VITALS: BMI 26.2
[2023-05-02 12:15] LABS: Absolute Lymphocyte Count 1.16 X10^3/uL (0.83-4.51); Absolute Neutrophil Count 4.7 X10^3/uL (2.0-7.7); Basophil# 0.07 X10^3/uL; Basophil% 1.1 % (0-1); Eosinophil# 0.15 X10^3/uL; Eosinophils% 2.3 % (0-5); Hematocrit 38.8 % (40-54); Hemoglobin 12.2 g/dL (13.0-16.5); Lymphocyte # 1.16 X10^3/ul (0.83-4.51); Lymphocyte % 17.8 % (19-41); Mean Corp Hgb Conc 31.4 g/dL (32-36); Mean Corpuscular Hgb 30.7 pg (27.0-32.0); Mean Corpuscular Volume 97.5 fL (80-94); Mean Platelet Vol. 12.8 fl (6.2-12.0); Monocyte# 0.44 X10^3/uL; Monocyte% 6.7 % (0-10); NRBC Flagged by Analyzer 0 % (0-5); Neutrophil # 4.67 X10^3/uL (2.7-7.7); Neutrophil % 71.6 % (47-70); Platelet Count 192 K/mm3 (150-450); RBC Distribution Width CV 13.9 % (11.6-14.6); RBC Distribution Width SD 50.3 fl (35.1-43.9); Red Blood Count 3.98 M/mm3 (4.6-6.2); White Blood Count 6.5 K/mm3 (4.4-11.0)
[2023-05-02 12:37] LABS: Vitamin D,25 Hydroxy 31.6 ng/mL
[2023-05-02 13:04] LABS: ALB/GLOB Ratio 1.2 RATIO (0.9-2.4); AST(SGOT) 13 U/L (15-37); Alanine Aminotransfer ALT/SGPT 14 U/L (16-61); Albumin, Serum 3.8 g/dL (3.2-5.0); Alkaline Phosphatase 68 U/L (45-117); Anion Gap 7 (5-15); BUN 23 mg/dL (7-18); Chloride 104 mmol/L (98-107); Creatinine, Serum 1.53 mg/dL (0.70-1.30); EST Glomerular Filtration Rate 46 mL/min (>60); Est Glom Filt Rate - Afr Amer 56 mL/min (>60); Globulin 3.3 g/dL (2.2-4.2); Glucose 120 mg/dL (74-106); Potassium 3.6 mmol/L (3.5-5.1); Protein, Total 7.1 g/dL (6.4-8.2); Sodium Level 139 mmol/L (136-145); Thyroid Stim Hormone (TSH) 1.22 uIU/mL (0.358-3.74)
== END | disposition home or self-care (01) ==
PROVIDERS: PCP Family Medicine Geriatric Medicine; Visit Provider Family Medicine Geriatric Medicine
DX: I10 Essential (primary) hypertension (principal); E55.9 Vitamin D deficiency, unspecified
CPT/HCPCS: 36415; 80053; 82306; 84443; 85025

== ENCOUNTER → 2023-05-29 | Outpatient (CLI) | payer MEDICARE, OTHER, SELFPAY ==
[2020-04-02 11:50] VITALS: BMI 26.2
== END | disposition home or self-care (01) ==
LOC: LABSPEC 15:45
PROVIDERS: PCP Family Medicine Geriatric Medicine; Visit Provider Family Medicine Geriatric Medicine
DX: N39.0 Urinary tract infection, site not specified (principal)
CPT/HCPCS: 87086; 87088

== ENCOUNTER → 2023-07-19 | Outpatient (CLI) | payer MEDICARE, OTHER, SELFPAY ==
[2020-04-02 11:50] VITALS: BMI 26.2
[2023-07-19 11:07] LABS: Absolute Lymphocyte Count 1.22 X10^3/uL (0.83-4.51); Absolute Neutrophil Count 4.4 X10^3/uL (2.0-7.7); Basophil# 0.09 X10^3/uL; Basophil% 1.4 % (0-1); Eosinophils% 3.1 % (0-5); Hematocrit 36.4 % (40-54); Hemoglobin 11.3 g/dL (13.0-16.5); Lymphocyte # 1.22 X10^3/ul (0.83-4.51); Mean Corpuscular Hgb 30.1 pg (27.0-32.0); Mean Corpuscular Volume 96.8 fL (80-94); Mean Platelet Vol. 13.4 fl (6.2-12.0); Monocyte# 0.45 X10^3/uL; NRBC Flagged by Analyzer 0 % (0-5); Neutrophil # 4.42 X10^3/uL (2.7-7.7); Platelet Count 180 K/mm3 (150-450); RBC Distribution Width SD 49.5 fl (35.1-43.9); Red Blood Count 3.76 M/mm3 (4.6-6.2); White Blood Count 6.4 K/mm3 (4.4-11.0)
[2023-07-19 11:42] LABS: AST(SGOT) 17 U/L (15-37); Alanine Aminotransfer ALT/SGPT 10 U/L (16-61); Albumin, Serum 3.6 g/dL (3.2-5.0); Alkaline Phosphatase 75 U/L (45-117); Anion Gap 7 (5-15); BUN 16 mg/dL (7-18); Calcium,Total 8.7 mg/dL (8.5-10.1); Chloride 107 mmol/L (98-107); Creatinine, Serum 1.14 mg/dL (0.70-1.30); EST Glomerular Filtration Rate 65 mL/min (>60); Est Glom Filt Rate - Afr Amer 78 mL/min (>60); Globulin 3.5 g/dL (2.2-4.2); Glucose 109 mg/dL (74-106); Potassium 3.7 mmol/L (3.5-5.1); Protein, Total 7.1 g/dL (6.4-8.2); Sodium Level 140 mmol/L (136-145); Thyroid Stim Hormone (TSH) 2.02 uIU/mL (0.358-3.74)
[2023-07-19 11:56] LABS: Vitamin D,25 Hydroxy 22.6 ng/mL
== END | disposition home or self-care (01) ==
LOC: POLAB3 10:12
PROVIDERS: PCP Family Medicine Geriatric Medicine; Visit Provider Family Medicine Geriatric Medicine
DX: I10 Essential (primary) hypertension (principal); E55.9 Vitamin D deficiency, unspecified
CPT/HCPCS: 36415; 80053; 82306; 84443; 85025

== ENCOUNTER → 2023-09-26 | Outpatient (CLI) | payer MEDICARE, OTHER, SELFPAY ==
[2020-04-02 11:50] VITALS: BMI 26.2
[2023-09-26 14:59] LABS: PTHIN 40.6 pg/mL (18.4-80.1)
[2023-09-26 15:35] LABS: Albumin, Serum 4.1 g/dL (3.2-5.0); BUN 23 mg/dL (7-18); BUN/Creat Ratio 17.2 RATIO (10-20); Calcium,Total 9.6 mg/dL (8.5-10.1); Chloride 105 mmol/L (98-107); Creatinine, Serum 1.34 mg/dL (0.70-1.30); EST Glomerular Filtration Rate 54 mL/min (>60); Est Glom Filt Rate - Afr Amer 65 mL/min (>60); Glucose 98 mg/dL (74-106); Phosphorus 3.1 mg/dL (2.5-4.9); Potassium 3.9 mmol/L (3.5-5.1); Sodium Level 140 mmol/L (136-145)
--- OUTSIDE RECORDS SUMMARY | 2023-09-26 18:17 | XMS RPT_ITS | CCD ---
Author Name Unknown Address [address] [place] [address] Organization [employer] Results Test Name Value Interpretation Reference Range Facil ity Summary Purpose Family History No Family History Records FoundNo Family History Records FoundNo Family History Records Found Advance Directives No Advanced Directives Records FoundNo Advanced Directives Records FoundNo Advanced Directives Records Found Hospital Course Note HNO ID: [id number] Author: Shaila gifford (Akbar) Semaj Service: Interventional Cardiology Author Type: Nurse Practitioner Type: Discharge Summary Filed: 09/17/2019 12:03 PM Note Text: Attestation signed by Krish Stern at 09/18/2019 9:13 AM Attending Note I have personally performed a face to face assessment of the patient and have reviewed the PA/EMBROIDERER note. Signature: Krish Stern MD Date: 09/18/2019 Time: 9:13 AM DISCHARGE SUMMARY PATIENT NAME: Flex Solis Code Status: Not on file Highest Readmission Risk Score: 10 The 30 day readmissions risk score is derived from an internally validated risk model which evaluates patient level characteristics, utilization history, medication orders and lab results up until the day of discharge. Patients with a score of 40 or above are considered highest risk for readmission. Specific pat (more content not included)... Additional Source Comments (unrecognized sect ion and content) No Status Records FoundNo Status Records FoundNo Status Records Found INFORMATION SOURCE (unrecogn ized section and content) DATE CREATED AUTHOR AUTHOR'S ORGANIZ ATION 09/18/2019 [facility] DATE CREATED AUTHOR AUTHOR'S ORGANIZ ATION 04/24/2021 [facility] ([place]) FOR RECORDS PERTAINING TO PATIENTS WHO ARE OR HAVE BEEN ENROLLED IN A CHEMICAL DEPENDENCY/SUBSTANCEABUSE PROGRAM, SOME INFORMATION MAY BE OMITTED. This clinical summary was aggregated from multiple sources. Caution should be exercised in using it in the provision of clinical care. This summary normalizes information from multiple sources, and as a consequence, information in this document may materially change the coding, format and clinical context of patient data. In addition, data may be omitted in some cases. CLINICAL DECISIONS SHOULD BE BASED ON THE PRIMARY CLINICAL RECORDS. [facility] [employer] [facility]. provides no warranty or guarantee of the accuracy or completeness of information in this document.
== END | disposition home or self-care (01) ==
LOC: POLAB3 13:17
PROVIDERS: PCP Family Medicine Geriatric Medicine; Visit Provider Internal Medicine Nephrology
DX: N18.31 Chronic kidney disease, stage 3a (principal)
CPT/HCPCS: 36415; 80069; 83970

== ENCOUNTER 2023-10-08 09:27 | Inpatient (IN) | payer MEDICARE, OTHER, SELFPAY ==
[2020-04-02 11:50] VITALS: BMI 26.2
[2023-10-08] VITALS (10 sets, daily range): BP systolic 112–144; BP diastolic 57–76; PULSE 49–90; RESP 16–26; TEMP 35.9–36.7; O2SAT 67–100; BMI 24.7
--- NOTE | 2023-10-08 09:36 | EKG12_ITS ---
Test Reason : CP Blood Pressure : / mmHG Vent. Rate : 102 BPM Atrial Rate : 102 BPM P-R Int : 162 ms QRS Dur : 166 ms QT Int : 384 ms P-R-T Axes : 029 -38 124 degrees QTc Int : 500 ms Sinus tachycardia with occasional Premature ventricular complexes Left axis deviation Left bundle branch block Abnormal ECG Confirmed by Michael Murillo ([id number]), editor & co founder KRISTI LEIJA ([id number]) on 10/09/2023 10:32:52 AM Referred By: Confirmed By:Michael Murillo
[2023-10-08] MEDS: Aspirin 81 MG TAB.CHEW 324 MG PO (09:42)
--- NOTE | 2023-10-08 09:42 | ED.VIS.CHEST ---
HPI History of Present Illness Chief Complaint: Chest Pain Detail of Chief Complaint: Midsternal pressure and strangulation sensation Informant: patient and spouse/S.O. Onset/Context/Timing Onset: Yesterday Activity at onset: sudden and rest Timing: Continuous and Waxes and wanes Quality: Positive for Pressure and - (Also complains of sensation of strangulation) Location: Substernal Current Severity: Mild Maximum Severity: Severe Worsened By: Exertion (Walking) Relieved By: NTG Associated Symptoms: Positive for Dyspnea; Negative for Nausea, Vomiting, Diaphoresis, Cough, Fever, Lightheadedness, Acid Reflux or Palpitations Narrative Narrative: Patient is an 88-year-old male with history of coronary disease. He has had 16 cardiac catheterizations and 10 stents have been deployed. His cath report was summarized under the MDM/section of the chart. He is on anticoagulant. He is uncertain why he is on anticoagulant. He had 3 episodes that were significant. He had marked improvement after taking a nitro. He took a total of 3 nitro yesterday. He states he developed the discomfort in his chest and when he went up to walk it got worse and he felt as if someone was strangling him. He may have had shortness of breath. He denied nausea vomiting diaphoresis or pallor. states he did not look short of breath and he did not look pale. Patient states he is having discomfort at this time. He states his drove him to the emergency room and he was placed in a wheelchair and brought back to the room. He has not taken any nitroglycerin today. He denies headache, visual, ocular auditory symptoms. He denies GI symptoms and specifically melena or maroon-colored stool. He denies urologic symptoms. He does endorse bruising easily. He is present on Xarelto. Patient's last cardiac catheterization was 2021. Findings were documented under the outpatient records in the MDM portion of the medical chart. Patient had a non-STEMI at that time. Prior Similar Symptoms: Yes, With Prior NM and With Prior Angina CVD Risk Factors: Positive for Hypertension and Hypercholesterolemia PE Risk Factors: Negative for Recent Travel/Surgery, Recent Immobilization, Prior DVT or PE, Cancer or OCP + Smoking + >/=35 TAD Risk Factors: Positive for Hypertension; Negative for Marfan's Syndrome or Family History [facility] Medical History Acute blood loss anemia Anemia Arthritis Atherosclerosis of coronary artery of [place] heart with angina pectoris Atrial fibrillation BPH (benign prostatic hyperplasia) Bruising Cancer Carotid artery disease Chronic systolic (congestive) heart failure Constipation DDD (degenerative disc disease) Elevated troponin Essential (primary) hypertension GERD (gastroesophageal reflux disease) Hematuria Hiatal hernia History of non-ST elevation myocardial infarction (NSTEMI) (12/27/21) HLD (hyperlipidemia) Irregular heart beat Ischemic cardiomyopathy Left bundle branch block (LBBB) Left carotid artery stenosis Male hypogonadism NM (myocardial infarction) Non-smoker Nonsustained ventricular tachycardia 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 infarction Pacemaker Paroxysmal atrial fibrillation Polycythemia Secondary pulmonary arterial hypertension Segmental and somatic dysfunction of pelvic region Segmental and somatic dysfunction of thoracic region Shortness of breath on exertion Sinus drainage TIA (transient ischemic attack) Wears dentures Wears glasses Home Medications pantoprazole 40 mg tablet,delayed release 40 mg PO DAILY ACID REFLUX 10/29/16 [History Last Taken 10/07/23] clopidogrel 75 mg tablet (Plavix) 75 mg PO DAILY BLOOD THINNER 09/26/22 [History Last Taken 10/07/23] sacubitril 24 mg-valsartan 26 mg tablet (Entresto) 1 tab PO BID HEART FAILURE 09/26/22 [History Last Taken 10/07/23] nitroglycerin 0.4 mg sublingual tablet 0.4 mg sublingual Q5-15M PRN chest pain #30 tabs 11/17/22 [Rx Last Taken 10/07/23] carvedilol 3.125 mg tablet 3.125 mg PO BID #180 tabs 01/27/23 [Rx Last Taken 10/07/23] furosemide 20 mg tablet 20 mg PO Q3D fluid retention 10/08/23 [History Last Taken 10/07/23] hydroxyzine HCl 50 mg tablet 50 mg PO Q6H PRN itching 10/08/23 [History Last Taken Unknown] loratadine 10 mg tablet (Allergy Relief (loratadine)) 10 mg PO DAILY 10/08/23 [History Last Taken Unknown] prednisone 10 mg tablet See Rx Instructions .Route .COMPLEX 10/08/23 [History Last Taken Unknown] rivaroxaban 15 mg tablet (Xarelto) 15 mg PO DAILY 10/08/23 [History Last Taken 03/02/24] rivaroxaban 20 mg tablet (Xarelto) 20 mg PO QPM blood thinner 10/08/23 [History Last Taken Unknown] Allergy/AdvReac Type Severity Reaction Status Date / Time hydrochlorothiazide Allergy Severe Severe Verified 07/25/23 09:50 itching rash promethazine [From Phenergan] Allergy Other Verified 07/25/23 09:50 apixaban [From Eliquis] AdvReac Severe All over Verified 07/25/23 09:50 itching and rash ranolazine [From Ranexa] AdvReac Severe Rash Verified 07/25/23 09:50 omeprazole AdvReac Unknown Verified 07/25/23 09:50 Phenothiazines AdvReac Unknown Verified 07/25/23 09:50 Uorfobo-HII-XgU Reductase AdvReac myalgias Verified 07/25/23 09:50 Inhibitor [Nwuvknj-Vbb-Xfr Reductase Inhibitor] Family History Father , Age 37 from [place] CAD (coronary artery disease) Myocardial infarction Sudden cardiac Mother , age 96 Diabetes Surgical History History of appendectomy History of cataract surgery History of coronary artery stent placement (04/19/21) History of electrophysiologic study (2009) History of hernia repair History of implantable cardiac defibrillator (ICD) (05/17/10) History of intraocular lens implant History of left heart catheterization (08/09/21) History of transurethral resection of prostate (12/16/20) Social History (Updated 10/08/23 @ 09:[address] Vinny Mata MD) household members: spouse Smoking Status: Never smoker alcohol intake: never substance use type: does not use caffeine: Yes Type: carbonated beverages Number of servings: 1 and coffee Number of servings: 1 what type of physical activity do you participate in: none ROS ROS ED Constitutional Constitutional ED: Denies chills, fever(s), subjective, sweats or weight loss Eyes Eyes: Reports none ENT ENT ED: Denies ear pain, rhinorrhea or sore throat Cardiovascular Cardiovascular: Reports as per HPI; Denies orthopnea or paroxysmal nocturnal dyspnea Respiratory/Chest Respiratory/Chest: Denies cough, dyspnea, dyspnea on exertion, orthopnea or paroxysmal nocturnal dyspnea Gastrointestinal Gastrointestinal: Denies abdominal pain, melena, nausea or vomiting Musculoskeletal Musculoskeletal: Denies arthralgias, back pain, myalgias or neck pain Integumentary Denies rash Neurologic Neurologic: Denies headache(s) or paresthesias Psychiatric Psychiatric: Reports other Details: Patient was tearful during the history portion of the HPI. ; Denies anxiety or depression Hematologic/Lymphatic Hematologic/Lymphatic: Reports easy bruising; Denies easy bleeding EXAM Physical Exam Const Vital Signs: 10/08/23 09:28 10/08/23 09:31 10/08/23 09:32 Temperature 96.6 F L Temperature Source Temporal Pulse Rate 49 L 90 Respiratory Rate 22 H 26 H Respiratory Effort Short of Breath Blood Pressure 144/68 H Blood Pressure Mean 93 Pulse Ox 90 93 Oxygen Delivery Method Room Air Room Air 10/08/23 09:45 10/08/23 09:47 10/08/23 11:13 Temperature Temperature Source Pulse Rate 77 64 Respiratory Rate Respiratory Effort Blood Pressure 144/68 H 112/57 L Blood Pressure Mean Pulse Ox 95 Oxygen Delivery Method Room Air Positive well nourished and well developed General Appearance ED: well developed, NAD and pallor HEENT Reports moist mucous membranes normocephalic and atraumatic Eyes PERRL and EOMs intact bilaterally General Eye ED: Negative for pale conjunctiva or scleral icterus Neck no lymphadenopathy, supple and no JVD Chest Wall inspection of chest normal and palpation of chest normal Resp normal respiratory effort Effort and Inspection: Negative for respiratory distress or pain with movement Auscultation: rales bilateral base; Negative for diminished lung sounds Cardio regular rate, regular rhythm, S1 normal heart sound, S2 normal heart sound and no murmurs Peripheral Pulses: pulses 2+ throughout GI normal to inspection, nondistended, normoactive bowel sounds, soft to palpation, non-tender, non-distended and no masses; Negative for hepatosplenomegaly Back/Spine no CVA tenderness Extremity Extremity Narrative: There is no asymmetry, swelling, discoloration, leg vein distention, palpable cords or tenderness along the distribution of deep venous system. Patient does have mild pitting edema of his feet and legs. General Extremety ED: Yes edema General Extremity: edema Neuro oriented x3 and CN's II-XII intact bilaterally Sensorium / Orientation: awake and alert Psych Psych Narrative: Thought process is normal. Mood & Affect: tearful Skin no wounds General Skin Exam: pallor; Negative for jaundice Heart Score History: Moderately Suspicious ECG: Nonspecific Repolarization Age: >/= 65 years Risk Factors: >/= 3 Risk Factors or History of CAD Score: 6 MDM MDM MDM Narrative Medical decision making narrative: Differential diagnosis is cardiac versus noncardiac. There is high suspicion for this being cardiac in light of patient's past medical history, risk factors and the fact that the tightness is worse with minimal activity and essentially alleviated with nitroglycerin. Since patient is having tightness at this time nitroglycerin was ordered. Of note he is on Plavix. He has not missed any doses. Appropriate blood work was obtained as well as EKG and chest x-ray. History & Record Review Additional record(s) reviewed:: Prior outpatient record (LEFT HEART ASSESSMENT Left Ventricular Ejection Fraction: by Echo 15 % Anterior Akinesis. Apical Akinesis Depressed Left Ventricular systolic function LEFT MAIN: Angiographically normal, Previously placed stent patent LEFT ANTERIOR DESCENDING ARTERY: Previously placed stent in the proximal), Prior ED visit and Prior labs Lab Data Attestation: I reviewed the patient's lab results. Lab results narrative: White count is slightly elevated with slight shift. This is nondiagnostic. Basic metabolic panel is remarkable for BUN/creatinine of 22 and 1.25 with an estimated GFR 58. First troponin is elevated 183. Patient's had multiple elevated troponin levels in the past. When he has had a significant event his troponins did rise into the thousands. Suspect patient had a non-STEMI. Will contact hospitalist and cardiology regarding anticoagulation. Labs: Laboratory Results - last 24 hr 10/08/23 09:40 WBC 11.6 H RBC 3.74 L Hgb 11.4 L Hct 35.6 L MCV 95.2 H MCH 30.5 MCHC 32.0 RDW Std Deviation 50.1 H RDW Coeff of Dane 14.6 Plt Count 227 MPV 13.8 H Immature Gran % (Auto) 0.600 Neut % (Auto) 84.8 H Lymph % (Auto) 11.4 L [place] % (Auto) 3.0 Eos % (Auto) 0.0 Baso % (Auto) 0.2 Absolute Neuts (auto) 9.8 H Absolute Lymphs (auto) 1.32 Nucleated RBC % 0 Sodium 140 Potassium 3.7 Chloride 106 Carbon Dioxide 28.0 Anion Gap 6 BUN 22 H Creatinine 1.25 Estim Creat Clear Calc 42.99 Est GFR (MDRD) Af Amer 70 Est GFR (MDRD) Non-Af 58 L BUN/Creatinine Ratio 17.6 Glucose 129 H Calcium 9.6 Troponin I High Sens 183 H* Radiography Chest X-Ray - ED: 1 View and Read by ED Physician (Independently reviewed and interpreted by me at 1005 as negative for acute findings. There are some minor chronic changes of the lung. Pacemaker defibrillator noted on the right side. Cardiac silhouette is unremarkable. There is no evidence of effusion. Osseous structures unremarkable.) Diagnostic Testing: Clinical Impression(s) from Imaging Studies Chest X-Ray 10/08/23 09:50 IMPRESSION: Degenerative changes, as described above. No demonstrated acute cardiopulmonary process. Electronically Signed: John Garrett MD at 10:20 EST , Rhythm Strip Rhythm Strip: Sinus Rhythm (Wide-complex rate of 92.) Rate: 92 Ectopy: None EKG Initial EKG: Attestation: I personally reviewed and interpreted this EKG as follows: Interpretation: Sinus Tachycardia (Rate is 102. Parables 160 ms. QRS duration is 106 6 ms and has morphology of left bundle branch block. QT is 384. [place] to left. There is no obvious acute ischemic changes noted.) Management Discussion w/another healthcare provider: Hospitalist (Case discussed with Dr. Quiles who will consult cardiology.) and Distiller (Spoke with Dr. Auguste. He is aware of patient.) Treatment and Re-Evaluation :: Review of med list indicates patient is on anticoagulant. Critical Care Time Critical Care Time: Yes Critical care time (excluding procedures): 30-74 minutes (33), Including time spent: (History, physical, documentation, review of prior records including cardiac catheterization and office visits by cardiology), Discussing w/Patient &/or Family/Biopsychologist, Discussing w/Consultants (Spoke with manager unit on-call.), Arranging Admission or Transfer and - (Treatment for angina with nitroglycerin. Patient is presently pain-free and not placed on a drip. Will apply Nitropaste.) Discharge Plan Triage Chief Complaint: Chest Pain ED Provider: Mata,Vinny Dx/Rx/DC Orders Clinical Impression: ACS (acute coronary syndrome), History of implantable cardiac defibrillator (ICD), Left bundle branch block (LBBB), History of ischemic cardiomyopathy Prescriptions: No Action carvedilol 3.125 mg tablet 3.125 mg PO BID Qty: 180 3RF pantoprazole 40 MG tablet 40 mg PO DAILY clopidogrel [Plavix] 75 mg tablet 75 mg PO DAILY Entresto 24-26 mg tablet 1 tab PO BID nitroglycerin 0.4 mg tablet, sublingual 0.4 mg sublingual Q5-15M PRN (Reason: chest pain) Qty: 30 3RF loratadine [Allergy Relief (loratadine)] 10 mg tablet 10 mg PO DAILY Patient Comments: pt started med yesterday 10/07/23 and had chest pain and shakes after. hasnt taken since. hydroxyzine HCl 50 mg tablet 50 mg PO Q6H PRN (Reason: itching) Patient Comments: pt started med yesterday 10/07/23 and had chest pain and shakes after. hasnt taken since. prednisone 10 mg tablet See Rx Instructions .ROUTE .COMPLEX Patient Comments: started 10/06/23 Rx Instructions: TAKE 3 TABS X 2 DAYS, THEN 2 TABS X 2 DAYS, THEN 1 TAB X 2 DAYS, THEN STOP; Xarelto 15 mg tablet 15 mg PO DAILY Hold Instructions: MD Ordered Patient Comments: pt took 1 tab, and then went back to 20mg furosemide 20 mg tablet 20 mg PO Q3D Xarelto 20 mg tablet 20 mg PO QPM Primary Care Provider: Jacques Pena Chi Referrals: Jacques Pena Chi, MD [Primary Care Provider] -
[2023-10-08] MEDS: Nitroglycerin SL (ED/IMG/CATH) 0.4 MG TABLET SL (09:45)
--- NOTE | 2023-10-08 09:50 | RAD_ITS ---
STUDY: X-RAY CHEST REASON FOR EXAM: Male, 88 years old. Chest pain TECHNIQUE: Single AP portable view of the chest. COMPARISON: November 16, 2022 FINDINGS: Pacemaker device on the right is stable. The lungs are clear. There is stable elevation of the right hemidiaphragm. There is no demonstrated pleural abnormality. There are coronary endovascular stent(s) present. Normal mediastinum and agapito. Normal visualized pulmonary arteries. Normal visualized aortic arch and descending thoracic aorta. There is demineralization of the osseous structures. Normal visualized ribs, clavicles, and shoulders. There is no demonstrated abnormality of the visualized soft tissue structures of the upper abdomen. RAD/Chest 1 View (Portable) IMPRESSION: Degenerative changes, as described above. No demonstrated acute cardiopulmonary process. Electronically Signed: John Garrett MD at 10:20 EST ,
[2023-10-08 10:07] LABS: Absolute Lymphocyte Count 1.32 X10^3/uL (0.83-4.51); Absolute Neutrophil Count 9.8 X10^3/uL (2.0-7.7); Basophil# 0.02 X10^3/uL; Basophil% 0.2 % (0-1); Hematocrit 35.6 % (40-54); Hemoglobin 11.4 g/dL (13.0-16.5); Lymphocyte # 1.32 X10^3/ul (0.83-4.51); Lymphocyte % 11.4 % (19-41); Mean Corpuscular Hgb 30.5 pg (27.0-32.0); Mean Corpuscular Volume 95.2 fL (80-94); Mean Platelet Vol. 13.8 fl (6.2-12.0); Monocyte# 0.35 X10^3/uL; NRBC Flagged by Analyzer 0 % (0-5); Neutrophil # 9.83 X10^3/uL (2.7-7.7); Neutrophil % 84.8 % (47-70); Platelet Count 227 K/mm3 (150-450); RBC Distribution Width CV 14.6 % (11.6-14.6); RBC Distribution Width SD 50.1 fl (35.1-43.9); Red Blood Count 3.74 M/mm3 (4.6-6.2); White Blood Count 11.6 K/mm3 (4.4-11.0)
[2023-10-08 10:13] LABS: Anion Gap 6 (5-15); BUN 22 mg/dL (7-18); BUN/Creat Ratio 17.6 RATIO (10-20); Calcium,Total 9.6 mg/dL (8.5-10.1); Chloride 106 mmol/L (98-107); Creatinine, Serum 1.25 mg/dL (0.70-1.30); EST Glomerular Filtration Rate 58 mL/min (>60); Est Glom Filt Rate - Afr Amer 70 mL/min (>60); Estimated Creatinine Clearance 42.99 ml/min; Glucose 129 mg/dL (74-106); Potassium 3.7 mmol/L (3.5-5.1); Sodium Level 140 mmol/L (136-145); Troponin-I HS (w/2H Reflex) 183 pg/mL (3.0-78.0)
[2023-10-08] MEDS: Nitroglycerin Oint 1 INCH PACKET TD (11:13)
--- NOTE | 2023-10-08 11:30 | PCM.HP.STD ---
HPI - General General Date of Admission: 10/08/23 Date of Service: 10/08/23 Chief Complaint: Chest pain HPI Narrative FLEX GARCIA, is a 88 M who presented to the emergency department at [facility] on 10/08/2023 with chest pain. Patient has a very complex cardiac past medical history and has had previous 16 cardiac catheterizations and [address]. He states that he had increased weakness and fatigue for about a week that was new for him. He then reports he had a rash for which she was prescribed prednisone, loratadine, and hydroxyzine by Dr. Pena and he started these medications yesterday. He states he took 1 dose and then he began having squeezing chest pain and a sensation of strangulation with exertion that started yesterday. He had 4 such episodes all abated with him taking nitroglycerin. He some associated shortness of breath but no nausea or vomiting. He had no associated diaphoresis. He got up this morning and states he was feeling okay and then he had another episode of chest pain and very significant strangulation sensation in his throat that was the predominant symptom at the time so he decided to come the emergency department. I asked him why he did not come yesterday and he states he probably really should have. He got to the emergency department and was given nitroglycerin at which time his symptoms improved and he currently has Nitropaste on and is asymptomatic. Vital signs on presentation showed temperature of 96.6, heart rate was initially 40 through and has now been between 64 and 90, blood pressure is 144/68, respiratory was 22 and oxygen saturations were initially 90% on room air but are currently 95 on room air. CBC shows a mild leukocytosis with a white count of 11.6 and a left shift. His hemoglobin is at his baseline 11.4. Platelets are normal. His chemistry panel is overall unremarkable other than mild hyperglycemia with a glucose of 129. His initial troponin was 183. EKG does not show any acute ST-T wave changes. Chest x-ray is negative for any acute cardiopulmonary process. The case was discussed with Dr. Toth who is on for cardiology and he recommended the patient be admitted so they can take [facility] to [facility] Medical History Acute blood loss anemia Anemia Arthritis Atherosclerosis of coronary artery of [place] heart with angina pectoris Atrial fibrillation BPH (benign prostatic hyperplasia) Bruising Cancer Carotid artery disease Chronic systolic (congestive) heart failure Constipation DDD (degenerative disc disease) Elevated troponin Essential (primary) hypertension GERD (gastroesophageal reflux disease) Hematuria Hiatal hernia History of non-ST elevation myocardial infarction (NSTEMI) (12/27/21) HLD (hyperlipidemia) Irregular heart beat Ischemic cardiomyopathy Left bundle branch block (LBBB) Left carotid artery stenosis Male hypogonadism CA (myocardial infarction) Non-smoker Nonsustained ventricular tachycardia 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 infarction Pacemaker Paroxysmal atrial fibrillation Polycythemia Secondary pulmonary arterial hypertension Segmental and somatic dysfunction of pelvic region Segmental and somatic dysfunction of thoracic region Shortness of breath on exertion Sinus drainage TIA (transient ischemic attack) Wears dentures Wears glasses Home Medications pantoprazole 40 mg tablet,delayed release 40 mg PO DAILY ACID REFLUX 10/29/16 [History Last Taken 10/07/23] clopidogrel 75 mg tablet (Plavix) 75 mg PO DAILY BLOOD THINNER 09/26/22 [History Last Taken 10/07/23] sacubitril 24 mg-valsartan 26 mg tablet (Entresto) 1 tab PO BID HEART FAILURE 09/26/22 [History Last Taken 10/07/23] nitroglycerin 0.4 mg sublingual tablet 0.4 mg sublingual Q5-15M PRN chest pain #30 tabs 11/17/22 [Rx Last Taken 10/07/23] carvedilol 3.125 mg tablet 3.125 mg PO BID #180 tabs 01/27/23 [Rx Last Taken 10/07/23] furosemide 20 mg tablet 20 mg PO Q3D fluid retention 10/08/23 [History Last Taken 10/07/23] hydroxyzine HCl 50 mg tablet 50 mg PO Q6H PRN itching 10/08/23 [History Last Taken Unknown] loratadine 10 mg tablet (Allergy Relief (loratadine)) 10 mg PO DAILY 10/08/23 [History Last Taken Unknown] prednisone 10 mg tablet See Rx Instructions .Route .COMPLEX 10/08/23 [History Last Taken Unknown] rivaroxaban 15 mg tablet (Xarelto) 15 mg PO DAILY 10/08/23 [History Last Taken 10/07/23] rivaroxaban 20 mg tablet (Xarelto) 20 mg PO QPM blood thinner 10/08/23 [History Last Taken Unknown] Allergy/AdvReac Type Severity Reaction Status Date / Time hydrochlorothiazide Allergy Severe Severe Verified 07/25/23 09:50 itching rash promethazine [From Phenergan] Allergy Other Verified 07/25/23 09:50 apixaban [From Eliquis] AdvReac Severe All over Verified 07/25/23 09:50 itching and rash ranolazine [From Ranexa] AdvReac Severe Rash Verified 07/25/23 09:50 omeprazole AdvReac Unknown Verified 07/25/23 09:50 Phenothiazines AdvReac Unknown Verified 07/25/23 09:50 Fjumcfc-[id number]-PkO Reductase AdvReac myalgias Verified 07/25/23 09:50 Inhibitor [Vlodggj-Wkk-Pyi Reductase Inhibitor] Family History Father , Age 37 from [place] CAD (coronary artery disease) Myocardial infarction Sudden cardiac Mother , age 96 Diabetes Surgical History History of appendectomy History of cataract surgery History of coronary artery stent placement (04/19/21) History of electrophysiologic study (2009) History of hernia repair History of implantable cardiac defibrillator (ICD) (05/17/10) History of intraocular lens implant History of left heart catheterization (08/09/21) History of transurethral resection of prostate (12/16/20) Social History household members: spouse Smoking Status: Never smoker alcohol intake: never substance use type: does not use caffeine: Yes Type: carbonated beverages Number of servings: 1 and coffee Number of servings: 1 what type of physical activity do you participate in: none ROS Constitutional Constitutional: Reports fatigue and weakness; Denies anorexia, change in weight, chills, fever(s), malaise, night sweats or other Eyes Eyes: Denies blurry vision, change in eye color, change in vision, discharge from eye(s), double vision, erythema, eye pain, loss of vision or other ENT HEENT: Reports abnormal hearing and hearing loss; Denies dysphagia, ear pain, epistaxis, headache(s), nasal congestion, nasal discharge, post nasal drip, sinus pressure, sore throat or other Cardiovascular Cardiovascular: Reports chest pain and dyspnea on exertion; Denies claudication, edema, lightheadedness, orthopnea, palpitations, paroxysmal nocturnal dyspnea, rapid heart rate, syncope or other Respiratory/Chest Respiratory/Chest: Reports shortness of breath with exertion; Denies cough, dyspnea, excessive phlegm production, hemoptysis, productive cough, shortness of breath at rest, wheezing or other Gastrointestinal Gastrointestinal: Denies abdominal pain, coffee ground emesis, constipation, diarrhea, dyspepsia, hematemesis, hematochezia, loose stools, melena, nausea, vomiting or other Genitourinary Genitourinary: Denies burning urination, difficulty urinating, dysuria, hematuria, nocturia, urinary frequency, urinary hesitancy, urinary incontinence, urinary urgency or other Musculoskeletal Musculoskeletal: Denies arthralgias, back pain, joint pain, joint stiffness, joint swelling, myalgias, neck pain or other Neurologic Neurologic: Denies abnormal gait, abnormal speech, confusion, disequilibrium, dizziness, focal weakness, headache(s), numbness, paresthesias, seizure-like activity, seizures, syncope, tingling, tremor(s) or other Psychiatric Psychiatric: Denies anxiety, depression, homicidal ideation, suicidal ideation or other Endocrine Endocrinology: Denies change in body appearance, cold intolerance, excessive sweating, heat intolerance, polydipsia, polyuria or other Hematologic/Lymphatic Hematologic/Lymphatic: Denies anemia, easy bleeding, easy bruising, lymphadenopathy or other Allergic/Immunologic Allergic/Immunologic: Reports other Details: Skin itching Vital Signs Vital Signs Vital Signs: 10/08/23 09:28 10/08/23 09:31 10/08/23 09:32 Temperature 96.6 F L Temperature Source Temporal Pulse Rate 49 L 90 Respiratory Rate 22 H 26 H Respiratory Effort Short of Breath Blood Pressure 144/68 H Blood Pressure Mean 93 Pulse Ox 90 93 Oxygen Delivery Method Room Air Room Air 10/08/23 09:45 10/08/23 09:47 10/08/23 11:13 Temperature Temperature Source Pulse Rate 77 64 Respiratory Rate Respiratory Effort Blood Pressure 144/68 H 112/57 L Blood Pressure Mean Pulse Ox 95 Oxygen Delivery Method Room Air Weight Weight: 78.063 kg Body Mass Index (BMI) 24.7 Physical Exam Const alert, oriented x3, no apparent distress, average body habitus and well nourished Constitutional Narrative: Elderly, very pleasant, white male, sitting up in bed, currently appears comfortable and nontoxic, at bedside General Appearance: cooperative HEENT normocephalic, head/scalp atraumatic and moist oral mucous membranes HEENT Narrative: Dentures in place, Mallampati is 2, no thrush, hearing aids in place Eyes PERRL, EOMs intact bilaterally and conjunctivae normal Eyes Narrative: No scleral icterus Neck no lymphadenopathy and supple Neck Narrative: Trachea midline, no thyroid enlargement Resp normal respiratory effort, no retractions, no use of accessory muscles and clear to auscultation bilaterally Auscultation: Negative for rales, rhonchi or wheezes Cardio regular rate, regular rhythm, S1 normal heart sound, S2 normal heart sound, no murmurs, no rub, no gallops and no clicks GI normal to inspection, nondistended, normoactive bowel sounds, soft to palpation and non-tender Extremity no clubbing, cyanosis or edema Neuro oriented x3, CN's II-XII intact bilaterally, moves all extremities and no focal motor deficits Speech: speech normal Psych affect normal Psych Narrative: Very pleasant, interacts appropriately Results Medical Records Data Attestation: I reviewed the patient's medical records Lab / Micro Data Attestation: I reviewed the patient's lab results. 10/08/23 09:40 10/08/23 09:40 Labs: Laboratory Results - last 24 hr 10/08/23 09:40: WBC 11.6 H, RBC 3.74 L, Hgb 11.4 L, Hct 35.6 L, MCV 95.2 H, MCH 30.5, MCHC 32.0, RDW Std Deviation 50.1 H, RDW Coeff of Dane 14.6, Plt Count 227, MPV 13.8 H, Immature Gran % (Auto) 0.600, Neut % (Auto) 84.8 H, Lymph % (Auto) 11.4 L, [place] % (Auto) 3.0, Eos % (Auto) 0.0, Baso % (Auto) 0.2, Absolute Neuts (auto) 9.8 H, Absolute Lymphs (auto) 1.32, Nucleated RBC % 0, Sodium 140, Potassium 3.7, Chloride 106, Carbon Dioxide 28.0, Anion Gap 6, BUN 22 H, Creatinine 1.25, Estim Creat Clear Calc 42.99, Est GFR (MDRD) Af Amer 70, Est GFR (MDRD) Non-Af 58 L, BUN/Creatinine Ratio 17.6, Glucose 129 H, Calcium 9.6, Troponin I High Sens 183 H* Rhythm Strip Rhythm Strip: Sinus Rhythm (Wide-complex rate of 92.) Rate: 92 Ectopy: None Imaging Radiology Impression Chest X-Ray 10/08/23 09:50 IMPRESSION: Degenerative changes, as described above. No demonstrated acute cardiopulmonary process. Electronically Signed: John Garrett MD at 10:20 EST , Assessment & Plan Assessment/Plan (1) ACS (acute coronary syndrome): (2) Leukocytosis: PLAN: Plan ACS/NSTEMI -Troponin is elevated at 183 and patient meets criteria for NSTEMI -Will cycle cardiac enzymes -Continue home Plavix -Will give aspirin 81 mg -Hold Xarelto for now -Nitropaste -Continue home chronic therapy -Patient is not on a statin due to allergy -Cardiology consultation and n.p.o. after midnight for cardiac catheterization tomorrow Leukocytosis -Likely related to the above -Continue to monitor CAD/HTN/HPL/ischemic cardiomyopathy -Patient with 10 stents and a very complex past cardiac history -Has been refractory to some medical therapy due to side effects -Has pacemaker ICD -EF most recently was 50% -Most recent cardiac catheterization was done on 09/28/2022 and showed severe [place] coronary artery disease previously stented LAD, circumflex artery with some in-stent stenosis but no high-grade stenosis, right coronary artery with mid segment stenting and minimal in-stent stenosis -Medical therapy was recommended at that time -Continue Plavix -Start aspirin -Continue carvedilol -Continue home Entresto -Hold home Lasix for now -Patient is statin intolerant History of atrial fibrillation -Currently in sinus rhythm -Hold Xarelto -Continue beta-suha Chronic left bundle branch block -Stable Patient given a milligram Chronic anemia -Hemoglobin is stable -Monitor GERD -Continue home rivaroxaban Carotid artery disease -Therapy as above to modify secondary risk factors BPH -Nonobstructive as patient is on not on any medication DVT prophylaxis -Will initiate Lovenox while Xarelto is on hold CODE STATUS -DNR CCA with no intubation as discussed prior to admission Charges/Coding Visit Charges Inpatient E&M: 03341 Init Hosp L2
[2023-10-08 11:52] LABS: Reflex Troponin-HS? (from REC) Y
[2023-10-08 12:40] LABS: Troponin-I HS 182 pg/mL (3.0-78.0)
[2023-10-08 16:35] LABS: Troponin-I HS 210 pg/mL (3.0-78.0)
[2023-10-08] MEDS: SACUBITRIL/VALSARTAN 24/26 MG TABLET 1 EACH PO (21:03)
[2023-10-08] MEDS: Carvedilol 3.125 MG TABLET PO (21:03)
[2023-10-08] MEDS: 0.9% Saline Lock 10 ML Syringe IV (21:31)
[2023-10-09] VITALS (10 sets, daily range): BP systolic 80–137; BP diastolic 36–83; PULSE 67–84; RESP 14–18; TEMP 36.1–36.7; O2SAT 93–100; BMI 24.8
[2023-10-09 05:30] LABS: Hematocrit 31.1 % (40-54); Hemoglobin 9.9 g/dL (13.0-16.5); Mean Corp Hgb Conc 31.8 g/dL (32-36); Mean Corpuscular Hgb 30.6 pg (27.0-32.0); Mean Platelet Vol. 13.5 fl (6.2-12.0); Platelet Count 164 K/mm3 (150-450); RBC Distribution Width CV 14.4 % (11.6-14.6); RBC Distribution Width SD 50.1 fl (35.1-43.9); Red Blood Count 3.24 M/mm3 (4.6-6.2); White Blood Count 7.1 K/mm3 (4.4-11.0)
[2023-10-09 05:43] LABS: ALB/GLOB Ratio 1.1 RATIO (0.9-2.4); AST(SGOT) 11 U/L (15-37); Alanine Aminotransfer ALT/SGPT 10 U/L (16-61); Albumin, Serum 3.2 g/dL (3.2-5.0); Alkaline Phosphatase 58 U/L (45-117); Anion Gap 3 (5-15); BUN 26 mg/dL (7-18); BUN/Creat Ratio 22.2 RATIO (10-20); Calcium,Total 8.6 mg/dL (8.5-10.1); Chloride 110 mmol/L (98-107); Cholesterol 160 mg/dL (200); Creatinine, Serum 1.17 mg/dL (0.70-1.30); EST Glomerular Filtration Rate 63 mL/min (>60); Est Glom Filt Rate - Afr Amer 76 mL/min (>60); Estimated Creatinine Clearance 45.93 ml/min; Globulin 2.8 g/dL (2.2-4.2); Glucose 103 mg/dL (74-106); High Density Lipoprotein 45 mg/dL; Potassium 3.6 mmol/L (3.5-5.1); Sodium Level 142 mmol/L (136-145); Triglycerides 94 mg/dL; Very Low Density Lipoprotein 19 mg/dL (5-40)
--- NOTE | 2023-10-09 08:35 | PCM.PN.HOSP ---
Reason for Visit Reason for Visit: Diagnoses Elevated white blood cell count, unspecified (10/08/23) Acute ischemic heart disease, unspecified (10/08/23) Objective Data Objective Data Vital Signs: Vital Signs Temp Pulse Resp BP Pulse Ox O2 Del Method 97.5 F L 71 17 127/60 H 98 Room Air 10/09/23 06:29 10/09/23 06:29 10/09/23 06:29 10/09/23 06:29 10/09/23 06:29 10/09/23 06:29 Oxygen Delivery Method Room Air Weight: 173 lb 1.006 oz Body Mass Index (BMI) 24.8 Intake & Output: Intake and Output for Last 24 Hours 10/07/23 10/08/23 10/09/23 23:59 23:59 23:59 Intake Total 450 / 450 Balance 450 / 450 Lab / Micro Data 10/09/23 04:55 10/09/23 04:55 Labs: Laboratory Results - last 24 hr 10/08/23 09:40: WBC 11.6 H, RBC 3.74 L, Hgb 11.4 L, Hct 35.6 L, MCV 95.2 H, MCH 30.5, MCHC 32.0, RDW Std Deviation 50.1 H, RDW Coeff of Dane 14.6, Plt Count 227, MPV 13.8 H, Immature Gran % (Auto) 0.600, Neut % (Auto) 84.8 H, Lymph % (Auto) 11.4 L, [place] % (Auto) 3.0, Eos % (Auto) 0.0, Baso % (Auto) 0.2, Absolute Neuts (auto) 9.8 H, Absolute Lymphs (auto) 1.32, Nucleated RBC % 0, Sodium 140, Potassium 3.7, Chloride 106, Carbon Dioxide 28.0, Anion Gap 6, BUN 22 H, Creatinine 1.25, Estim Creat Clear Calc 42.99, Est GFR (MDRD) Af Amer 70, Est GFR (MDRD) Non-Af 58 L, BUN/Creatinine Ratio 17.6, Glucose 129 H, Calcium 9.6, Troponin I High Sens 183 H* 10/08/23 12:15: Troponin I High Sens 182 H* 10/08/23 15:43: Troponin I High Sens 210 H* 10/09/23 04:55: WBC 7.1, RBC 3.24 L, Hgb 9.9 L, Hct 31.1 L, MCV 96.0 H, MCH 30.6, MCHC 31.8 L, RDW Std Deviation 50.1 H, RDW Coeff of Dane 14.4, Plt Count 164, MPV 13.5 H, Sodium 142, Potassium 3.6, Chloride 110 H, Carbon Dioxide 29.0, Anion Gap 3 L, BUN 26 H, Creatinine 1.17, Estim Creat Clear Calc 45.93, Est GFR (MDRD) Af Amer 76, Est GFR (MDRD) Non-Af 63, BUN/Creatinine Ratio 22.2 H, Glucose 103, Calcium 8.6, Total Bilirubin 0.50, AST 11 L, ALT 10 L, Alkaline Phosphatase 58, Total Protein 6.0 L, Albumin 3.2, Globulin 2.8, Albumin/Globulin Ratio 1.1, Triglycerides 94, Cholesterol 160, LDL Cholesterol 96, VLDL Cholesterol 19, HDL Cholesterol 45 Radiography Diagnostic Testing: Radiology Impression Chest X-Ray 10/08/23 09:50 IMPRESSION: Degenerative changes, as described above. No demonstrated acute cardiopulmonary process. Electronically Signed: Jhon Garrett MD at 10:20 EST , Rhythm Strip Rhythm Strip: Sinus Rhythm (Wide-complex rate of 92.) Rate: 92 Ectopy: None Physical Exam Narrative Seen and examined. Currently patient is comfortable no chest pressure or tightness or shortness of breath. Patient admitted with chest pain felt like a squeezing pressure with the strangulating feeling over throat area. Patient seen by anger control counselor and cardiac cath was canceled seemed high risk. Physical exam General: Alert, Oriented x3, Cooperative HEENT: Atraumatic, PERRLA, EOMI, Normocephalic Oral: No Gingival or Mucosal Lesions/ Ulcerations Neck: Supple, No JVD, Negative Carotid Bruits Chest wall/Lungs: Air entry diminished in bilateral lung bases. No crepitation/rhonchi Cardiovascular: Regular rate, Regular Rhythm, Normal S1, Normal S2, Status post AICD on right subclavicular area. Systolic murmur over LLSB. Abdomen: Bowel Sounds Present, Soft, Non Tender, Non-Distended : No dysuria. No renal angle tenderness. No suprapubic tenderness. Extremities: No edema, Capillary Refill Less than 3 Seconds Skin: No rashes, No breakdown Musculoskeletal: No Tenderness to Palpation of Joints or Extremities Neurological: Cranial nerves II-XII grossly intact, DTR 2+/4. No acute focal neurological deficit. Psych/Mental Status: Flat affect. Assessment & Plan Assessment/Plan (1) ACS (acute coronary syndrome): (2) Leukocytosis: PLAN: Plan This is 88-year-old gentleman with history of CAD status post multiple stents, chronic heart failure status post AICD was admitted with chest pressure, squeezing in his strangulating and sensation and shortness of breath mainly on exertion. 1. ACS/non-STEMI: Patient is admitted in PCU -Troponin is elevated at 183, 182 and 210 meets the criteria of non-STEMI. Patient on aspirin and Plavix.On Coreg and Entresto and diuretic therapy. Patient in a euvolemic state. On long-acting nitrate Imdur 30 mg daily. Xarelto on hold. Patient is statin intolerant. Fasting profile shows LDL 96, HDL 45. TG 94 CAD/HTN/HPL/ischemic cardiomyopathy, EF 15%. Chronic LBBB status post AICD -Patient with 10 stents and a very complex past cardiac history -Has been refractory to some medical therapy due to side effects -Has pacemaker ICD - Last echo shows EF 15%, September 2022. 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 2+ TR, PASP 76 severe pulmonary hypertension. -Most recent cardiac catheterization was done on 09/28/2022 and showed severe [place] coronary artery disease previously stented LAD, circumflex artery with some in-stent stenosis but no high-grade stenosis, right coronary artery with mid segment stenting and minimal in-stent stenosis -Medical therapy was recommended at that time History of atrial fibrillation -Currently in sinus rhythm Resume Xarelto. -Continue beta-suha Chronic left bundle branch block -Stable Patient given a milligram Chronic anemia -Hemoglobin is stable -Monitor GERD -Continue home rivaroxaban Carotid artery disease -Therapy as above to modify secondary risk factors BPH -Nonobstructive as patient is on not on any medication DVT prophylaxis Discontinue Lovenox CODE STATUS -DNR CCA with no intubation as discussed prior to admission Plan for discharge tomorrow. 10/08/23 09:40: WBC 11.6 H, RBC 3.74 L, Hgb 11.4 L, Hct 35.6 L, MCV 95.2 H, MCH 30.5, MCHC 32.0, RDW Std Deviation 50.1 H, RDW Coeff of Dane 14.6, Plt Count 227, MPV 13.8 H, Immature Gran % (Auto) 0.600, Neut % (Auto) 84.8 H, Lymph % (Auto) 11.4 L, [place] % (Auto) 3.0, Eos % (Auto) 0.0, Baso % (Auto) 0.2, Absolute Neuts (auto) 9.8 H, Absolute Lymphs (auto) 1.32, Nucleated RBC % 0, Sodium 140, Potassium 3.7, Chloride 106, Carbon Dioxide 28.0, Anion Gap 6, BUN 22 H, Creatinine 1.25, Estim Creat Clear Calc 42.99, Est GFR (MDRD) Af Amer 70, Est GFR (MDRD) Non-Af 58 L, BUN/Creatinine Ratio 17.6, Glucose 129 H, Calcium 9.6, Troponin I High Sens 183 H* 10/08/23 12:15: Troponin I High Sens 182 H* 10/08/23 15:43: Troponin I High Sens 210 H* 10/09/23 04:55: WBC 7.1, RBC 3.24 L, Hgb 9.9 L, Hct 31.1 L, MCV 96.0 H, MCH 30.6, MCHC 31.8 L, RDW Std Deviation 50.1 H, RDW Coeff of Dane 14.4, Plt Count 164, MPV 13.5 H, Sodium 142, Potassium 3.6, Chloride 110 H, Carbon Dioxide 29.0, Anion Gap 3 L, BUN 26 H, Creatinine 1.17, Estim Creat Clear Calc 45.93, Est GFR (MDRD) Af Amer 76, Est GFR (MDRD) Non-Af 63, BUN/Creatinine Ratio 22.2 H, Glucose 103, Calcium 8.6, Total Bilirubin 0.50, AST 11 L, ALT 10 L, Alkaline Phosphatase 58, Total Protein 6.0 L, Albumin 3.2, Globulin 2.8, Albumin/Globulin Ratio 1.1, Triglycerides 94, Cholesterol 160, LDL Cholesterol 96, VLDL Cholesterol 19, HDL Cholesterol 45 Charges/Coding Visit Charges Inpatient E&M: 10792 Subs Hosp L2
--- NOTE | 2023-10-09 09:12 | PCM.CONS.C ---
Assessment & Plan Assessment/Plan (1) ACS (acute coronary syndrome): PLAN: The patient's troponins are probably consistent with a demand type ischemic event he has a known severely diseased distal LAD with a nonviable anterior wall by MRI and nuclear viability studies. He has been asymptomatic since admission. It appears this may have been triggered by a therapeutic intervention for his rash. I would recommend that we reinstitute his Imdur at 30 mg daily and have him ambulating in the halls. If he is able to do his activities of daily living and ambulate in the halls without symptoms he could be discharged home. He should follow-up in the cardiac offices in the [facility]. He also needs to have a new prescription for his sublingual nitro. (2) Coronary artery disease: QUALIFIERS: Coronary Disease-Associated Artery/Lesion type: [place] artery [place] vs. transplanted heart: [place] heart Associated angina: with stable angina Qualified Code(s): I25.118 - Atherosclerotic heart disease of [place] coronary artery with other forms of angina pectoris PLAN: The patient's last catheterization was 2021 and at that time he was intervened upon. He has diffuse multivessel coronary artery disease and the patient has been pretty much relegated to medical therapy. His LAD is apparently can not be intervened upon. If the patient continues to have chest symptoms despite Imdur Ranexa would be added and if he continues to have chest symptoms with that consideration be given for recatheterization. The patient's last catheterization in September 2022 revealed diffuse disease throughout the LAD system there was moderate disease in the previous stented segment in the ostium of the circumflex and mild disease in the stented right coronary artery with some distal disease in the right coronary artery. The patient's ejection fraction was measured at 15% at that time and he was treated medically. He has done very well since that point in time. (3) History of ischemic cardiomyopathy: PLAN: The patient be continued on his current medical regimen for his ischemic cardiomyopathy he does have an ICD in place. He will be maintaining him on his carvedilol and Entresto as well as his diuretic therapy. He also should be maintained on his Xarelto for his history of paroxysmal atrial fibrillation. (4) Left bundle branch block (LBBB): PLAN: The patient's left bundle branch block is chronic he does have an ICD in place. PLAN: Plan 1. Will reinstitute long-acting nitrates and ambulate the patient in the hospital. If he is able to ambulate without symptoms consideration should be given for discharge to home. 2. Should continue his home medical therapy aimed at his LV dysfunction. With his Coreg and Entresto as well as his diuretic therapy. He appears to be euvolemic. 3. The patient should follow-up per his previous arranged appointment in the office with the [facility]. HPI Consult Data Date of Consult: 10/09/23 HPI Narrative Reason for Consultation: Chest pain with known coronary artery disease. HPI Narrative: FLEX GARCIA, is a 88 M who presents with a history of being evaluated in his primary care office for rash and treated with a medication that caused him to have some violent chills and shakes. He does not know the name of the medication but after those chills and shakes he was ambulatory and noticed some upper chest discomfort. He took 3 of his nitroglycerin at home but they did not burn and they were not very firm either. He did not know the age of them but thought they were at least greater than 6 months old. The symptoms resolved spontaneously. This was not like the symptom he had had when he had his original infarct. That was more of a prominent pain in the mid retrosternal area. The patient's had no recurrence since his admission to the hospital. The patient denies any PND orthopnea denies any lower extremity edema. The patient's last fill of his Imdur was in November 2022 he does not remember stopping it he but he does not remember taking it either. He has not been on Ranexa to his knowledge. He is ambulatory and has been back and forth to the bathroom without any issues. The patient has a known chronic left bundle branch block and ischemic cardiomyopathy. He is on appropriate therapy for his LV dysfunction. The patient does carry history of atrial fibrillation and he is on Xarelto. He is currently in sinus rhythm on his EKG and on telemetry. He does have a history of anemia as well. [facility] Medical History Acute blood loss anemia Anemia Arthritis Atherosclerosis of coronary artery of [place] heart with angina pectoris Atrial fibrillation BPH (benign prostatic hyperplasia) Bruising Cancer Carotid artery disease Chronic systolic (congestive) heart failure Constipation DDD (degenerative disc disease) Elevated troponin Essential (primary) hypertension GERD (gastroesophageal reflux disease) Hematuria Hiatal hernia History of non-ST elevation myocardial infarction (NSTEMI) (12/27/21) HLD (hyperlipidemia) Irregular heart beat Ischemic cardiomyopathy Left bundle branch block (LBBB) Left carotid artery stenosis Male hypogonadism HI (myocardial infarction) Non-smoker Nonsustained ventricular tachycardia 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 infarction Pacemaker Paroxysmal atrial fibrillation Polycythemia Secondary pulmonary arterial hypertension Segmental and somatic dysfunction of pelvic region Segmental and somatic dysfunction of thoracic region Shortness of breath on exertion Sinus drainage TIA (transient ischemic attack) Wears dentures Wears glasses Home Medications pantoprazole 40 mg tablet,delayed release 40 mg PO DAILY ACID REFLUX 10/29/16 [History Last Taken 10/07/23] clopidogrel 75 mg tablet (Plavix) 75 mg PO DAILY BLOOD THINNER 09/26/22 [History Last Taken 10/07/23] sacubitril 24 mg-valsartan 26 mg tablet (Entresto) 1 tab PO BID HEART FAILURE 09/26/22 [History Last Taken 10/07/23] nitroglycerin 0.4 mg sublingual tablet 0.4 mg sublingual Q5-15M PRN chest pain #30 tabs 11/17/22 [Rx Last Taken 10/07/23] carvedilol 3.125 mg tablet 3.125 mg PO BID #180 tabs 01/27/23 [Rx Last Taken 10/07/23] furosemide 20 mg tablet 20 mg PO Q3D fluid retention 10/08/23 [History Last Taken 10/07/23] hydroxyzine HCl 50 mg tablet 50 mg PO Q6H PRN itching 10/08/23 [History Last Taken Unknown] loratadine 10 mg tablet (Allergy Relief (loratadine)) 10 mg PO DAILY 10/08/23 [History Last Taken Unknown] prednisone 10 mg tablet See Rx Instructions .Route .COMPLEX 10/08/23 [History Last Taken Unknown] rivaroxaban 15 mg tablet (Xarelto) 15 mg PO DAILY 10/08/23 [History Last Taken 10/07/23] rivaroxaban 20 mg tablet (Xarelto) 20 mg PO QPM blood thinner 10/08/23 [History Last Taken Unknown] Allergy/AdvReac Type Severity Reaction Status Date / Time hydrochlorothiazide Allergy Severe Severe Verified 07/25/23 09:50 itching rash promethazine [From Phenergan] Allergy Other Verified 07/25/23 09:50 apixaban [From Eliquis] AdvReac Severe All over Verified 07/25/23 09:50 itching and rash ranolazine [From Ranexa] AdvReac Severe Rash Verified 07/25/23 09:50 omeprazole AdvReac Unknown Verified 07/25/23 09:50 Phenothiazines AdvReac Unknown Verified 07/25/23 09:50 Blfoewi-FZV-SiP Reductase AdvReac myalgias Verified 07/25/23 09:50 Inhibitor [Nndxvyq-Aup-Vty Reductase Inhibitor] Family History Father , Age 37 from [place] CAD (coronary artery disease) Myocardial infarction Sudden cardiac Mother , age 96 Diabetes Surgical History History of appendectomy History of cataract surgery History of coronary artery stent placement (04/19/21) History of electrophysiologic study (2009) History of hernia repair History of implantable cardiac defibrillator (ICD) (05/17/10) History of intraocular lens implant History of left heart catheterization (08/09/21) History of transurethral resection of prostate (12/16/20) Social History household members: spouse Smoking Status: Never smoker alcohol intake: never substance use type: does not use caffeine: Yes Type: carbonated beverages Number of servings: 1 and coffee Number of servings: 1 what type of physical activity do you participate in: none ROS Constitutional Constitutional: Reports as per HPI Eyes Eyes: Reports systems reviewed and no addt'l complaints, except as documented ENT HEENT: Reports systems reviewed and no addt'l complaints, except as documented Cardiovascular Cardiovascular: Reports as per HPI Respiratory/Chest Respiratory/Chest: Reports as per HPI Gastrointestinal Gastrointestinal: Reports systems reviewed and no addt'l complaints, except as documented Genitourinary Genitourinary: Reports systems reviewed and no addt'l complaints, except as documented Musculoskeletal Musculoskeletal: Reports systems reviewed and no addt'l complaints, except as documented Integumentary Integumentary: Reports systems reviewed and no addt'l complaints, except as documented Neurologic Neurologic: Reports systems reviewed and no addt'l complaints, except as documented Psychiatric Psychiatric: Reports systems reviewed and no addt'l complaints, except as documented Endocrine Endocrinology: Reports systems reviewed and no addt'l complaints, except as documented Hematologic/Lymphatic Hematologic/Lymphatic: Reports as per HPI Allergic/Immunologic Allergic/Immunologic: Reports systems reviewed and no addt'l complaints, except as documented Physical Exam Const alert and oriented x3 HEENT normocephalic Eyes EOMs intact bilaterally Neck no JVD and no carotid bruits Chest inspection of chest normal Resp normal respiratory effort and clear to auscultation bilaterally Cardio regular rate, regular rhythm, S1 normal heart sound, S2 normal heart sound, no murmurs, no rub and no gallops GI normal to inspection, nondistended, normoactive bowel sounds Extremity normal to inspection General Extremity: Negative for edema Skin no rashes or lesions noted Neuro Neuro Narrative: Alert and oriented x 3 Psych mental status grossly normal Risk Stratification Risk Stratification Applicable: Yes Age >/= 65: Yes >/= 3 CAD Risk Factors (HTN, HLD, DM, family hx of CAD, or current smoker): No Aspirin Use in the Past 7 Days: No Severe Angina (>/= episodes in 24 hours): No EKG ST Changes >/= 0.5mm: No Positive Cardiac Marker: Yes BASHIR Risk Stratification Score: 2 BASHIR % Risk: 8% Risk Charges/Coding Visit Charges Inpatient E&M: 42398 Init Hosp L3 Objective Data Vital Signs: Vital Signs Temp Pulse Resp BP Pulse Ox O2 Del Method 97.5 F L 71 17 127/60 H 98 Room Air 10/09/23 06:29 10/09/23 06:29 10/09/23 06:29 10/09/23 06:29 10/09/23 06:29 10/09/23 06:29 Oxygen Delivery Method Room Air Weight: 173 lb 1.006 oz Body Mass Index (BMI) 24.8 Intake & Output: Intake and Output for Last 24 Hours 10/07/23 10/08/23 10/09/23 23:59 23:59 23:59 Intake Total 450 / 450 Balance 450 / 450 Lab / Micro Data Attestation: I reviewed the patient's lab results. 10/09/23 04:55 10/09/23 04:55 Labs: Laboratory Results - last 24 hr 10/08/23 09:40: WBC 11.6 H, RBC 3.74 L, Hgb 11.4 L, Hct 35.6 L, MCV 95.2 H, MCH 30.5, MCHC 32.0, RDW Std Deviation 50.1 H, RDW Coeff of [place] 14.6, Plt Count 227, MPV 13.8 H, Immature Gran % (Auto) 0.600, Neut % (Auto) 84.8 H, Lymph % (Auto) 11.4 L, [place] % (Auto) 3.0, Eos % (Auto) 0.0, Baso % (Auto) 0.2, Absolute Neuts (auto) 9.8 H, Absolute Lymphs (auto) 1.32, Nucleated RBC % 0, Sodium 140, Potassium 3.7, Chloride 106, Carbon Dioxide 28.0, Anion Gap 6, BUN 22 H, Creatinine 1.25, Estim Creat Clear Calc 42.99, Est GFR (MDRD) Af Amer 70, Est GFR (MDRD) Non-Af 58 L, BUN/Creatinine Ratio 17.6, Glucose 129 H, Calcium 9.6, Troponin I High Sens 183 H* 10/08/23 12:15: Troponin I High Sens 182 H* 10/08/23 15:43: Troponin I High Sens 210 H* 10/09/23 04:55: WBC 7.1, RBC 3.24 L, Hgb 9.9 L, Hct 31.1 L, MCV 96.0 H, MCH 30.6, MCHC 31.8 L, RDW Std Deviation 50.1 H, RDW Coeff of [place] 14.4, Plt Count 164, MPV 13.5 H, Sodium 142, Potassium 3.6, Chloride 110 H, Carbon Dioxide 29.0, Anion Gap 3 L, BUN 26 H, Creatinine 1.17, Estim Creat Clear Calc 45.93, Est GFR (MDRD) Af Amer 76, Est GFR (MDRD) Non-Af 63, BUN/Creatinine Ratio 22.2 H, Glucose 103, Calcium 8.6, Total Bilirubin 0.50, AST 11 L, ALT 10 L, Alkaline Phosphatase 58, Total Protein 6.0 L, Albumin 3.2, Globulin 2.8, Albumin/Globulin Ratio 1.1, Triglycerides 94, Cholesterol 160, LDL Cholesterol 96, VLDL Cholesterol 19, HDL Cholesterol 45 Rhythm Strip Rhythm Strip: Sinus Rhythm (Wide-complex rate of 92.) Rate: 92 Ectopy: None Cardiology Labs/Tests 10/08/23 09:40: WBC 11.6 H, RBC 3.74 L, Hgb 11.4 L, Hct 35.6 L, MCV 95.2 H, MCH 30.5, MCHC 32.0, Plt Count 227, MPV 13.8 H, Immature Gran % (Auto) 0.600, Neut % (Auto) 84.8 H, Lymph % (Auto) 11.4 L, [place] % (Auto) 3.0, Eos % (Auto) 0.0, Baso % (Auto) 0.2, Absolute Neuts (auto) 9.8 H, Nucleated RBC % 0, Sodium 140, Potassium 3.7, Chloride 106, Carbon Dioxide 28.0, Anion Gap 6, BUN 22 H, Creatinine 1.25, Est GFR (MDRD) Af Amer 70, Est GFR (MDRD) Non-Af 58 L, BUN/Creatinine Ratio 17.6, Glucose 129 H, Calcium 9.6 10/09/23 04:55: WBC 7.1, RBC 3.24 L, Hgb 9.9 L, Hct 31.1 L, MCV 96.0 H, MCH 30.6, MCHC 31.8 L, Plt Count 164, MPV 13.5 H, Sodium 142, Potassium 3.6, Chloride 110 H, Carbon Dioxide 29.0, Anion Gap 3 L, BUN 26 H, Creatinine 1.17, Est GFR (MDRD) Af Amer 76, Est GFR (MDRD) Non-Af 63, BUN/Creatinine Ratio 22.2 H, Glucose 103, Calcium 8.6, Total Bilirubin 0.50, Triglycerides 94, Cholesterol 160, LDL Cholesterol 96, VLDL Cholesterol 19, HDL Cholesterol 45 Rhythm: EKG: ECHO: Stress Test: Cardiac Cath: PCI: CT Surgery: Holter monitor: EPS: PPM: CXR: Chest CT Scan: Radiography Diagnostic Testing: Radiology Impression Chest X-Ray 10/08/23 09:50 IMPRESSION: Degenerative changes, as described above. No demonstrated acute cardiopulmonary process. Electronically Signed: John Garrett MD at 10:20 EST , EKG Initial EKG: Attestation: I personally reviewed and interpreted this EKG as follows: Interpretation: EKG shows sinus tachycardia 102 bpm left bundle branch block with left axis deviation. This is a known chronic left bundle branch block.
[2023-10-09] MEDS: SACUBITRIL/VALSARTAN 24/26 MG TABLET 1 EACH PO ×2 (09:16→20:34)
[2023-10-09] MEDS: Carvedilol 3.125 MG TABLET PO ×2 (09:16→20:34)
[2023-10-09] MEDS: Aspirin 81 MG TAB.CHEW PO (09:16)
[2023-10-09] MEDS: Isosorbide Mononitrate 30 MG Tablet PO (10:35)
[2023-10-09] MEDS: Clopidogrel Bisulfate 75 MG Tablet PO (10:35)
--- NOTE | 2023-10-09 12:05 | CASEMGMT ---
RN CM Face to Face with patient for initial transition planning/care coordination assessment. RN CM introduced self and role at [facility]. Patient lying in bed, alert and oriented, at bedside. Patient willing to participate in assessment and is able to answer all questions appropriately. Care providers, pharmacy, and demographics verified. PCP: Jean Specialists: Kb electrician telephone Preferred Pharmacy: [facility] Retail Insurance: [facility], AARP Prescription Benefit: yes Living Will/HPOA: yes, Mary Solis LNOK: , sons Living Arrangements: Patient lives with in a single story home with 2 steps and railing to enter the home. Patient states she is independent at home. Transportation: self, DME/HHC: Patient has raised toilet, cane at home. No previous HHC or SNF Patient wishes to discharge home, denies need for home health at this time. Patient states he has no further needs or concerns at this time. CM to follow for discharge planning needs that may arise. Disposition Plan: Patient to discharge home with family support and follow-up plans in place. Yuliya BELTRE, RN, CM
--- NOTE | 2023-10-09 13:07 | NURSING ---
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 Repeat BP is improving at 106/58. Pt cannot tolerate Imdur per cardiology.
--- NOTE | 2023-10-09 16:01 | NURSING ---
Pt ambulated in [place] with this RN, denies any chest pain or SOB during walk. Only complaint is mild weakness.
--- NOTE | 2023-10-09 16:27 | CHAPLAIN ---
Type of Pastoral Visit _x__ Initial Visit ___ Follow-up Visit ___ On-call Visit ___ General Patient Visit ___ Spiritual Assessment ___ Family Conference ___ Bereavement ___ Rapid Response ___ Code Blue ___ Other (describe below) Pastoral Care Referral From _x__ Patient ___ Family ___ Nurse ___ Physician ___ Gas Flow Regulator ___ Financial Internship ___ Other (describe below) Sacrament/Intervention _x__ Active listening ___ Anointing ___ Evangelical ___ Bereavement ___ Communion ___ Yun exploration ___ _x__ Life review ___ Prayer ___ Reconciliation ___ Sacrament of Sick _x__ Supportive presence ___ Wedding ___ Other (describe below) Pastoral Comments patient gives history of many heart procedures and declining health in recent years; pt states heart is only at 16% and no one knows what to do for me; approached subject of his coping with this news, if thinking about time of life left, to which pt admits these are realities; however patient twice diverted topic and said that I don't like to talk about these things; this transmission supervisor approached care of pt and how would he like support at this time; pt did not answer that specifically; this transmission supervisor ended the visit with assurance that care is available to pt at his desire and discretion
[2023-10-09] MEDS: MELATONIN 3 MG TABLET PO (22:30)
[2023-10-10 03:52] VITALS: BMI 24.7
[2023-10-10 04:23] VITALS: BP 117/62; PULSE 72; RESP 18; TEMP 36.4; O2SAT 94
[2023-10-10 07:18] VITALS: O2SAT 96
--- NOTE | 2023-10-10 07:19 | PN.CARD_ITS ---
Subjective Subjective Patient has been up in the halls walking without incident. He denies any shortness of breath denies any PND orthopnea. I observed him ambulating at a slow gait without any chest symptoms. Upon recumbency after the ambulation he reported he felt his heart thumping but his heart rate was in the 80 bpm range. He did have an S3 gallop audible. The patient reports that his current exercise tolerance is similar to what he experiences in his home environment when he is at baseline. Objective Data Vital Signs: Vital Signs Temp Pulse Resp BP Pulse Ox O2 Del Method 97.6 F L 72 18 117/62 94 Room Air 10/10/23 04:23 10/10/23 04:23 10/10/23 04:23 10/10/23 04:23 10/10/23 04:23 10/10/23 04:30 Oxygen Delivery Method Room Air Weight: 172 lb 6.424 oz Body Mass Index (BMI) 24.7 Intake & Output: Intake and Output for Last 24 Hours 10/08/23 10/09/23 10/10/23 23:59 23:59 23:59 Intake Total 450 / 450 460 / 460 Balance 450 / 450 460 / 460 Lab / Micro Data Attestation: I reviewed the patient's lab results. 10/09/23 04:55 10/09/23 04:55 Cardiology Labs/Tests Rhythm: EKG: ECHO: Stress Test: Cardiac Cath: PCI: CT Surgery: Holter monitor: EPS: PPM: CXR: Chest CT Scan: Physical Exam Const oriented x3 HEENT normocephalic Eyes EOMs intact bilaterally Chest inspection of chest normal Resp normal respiratory effort and clear to auscultation bilaterally Cardio regular rate, regular rhythm, S1 normal heart sound, S2 normal heart sound, no murmurs and no rub Jugular Venous Distention: other Other Details: S3 is auscultated at the apex. ; Negative for JVD GI soft to palpation Extremity no pedal edema Skin no rashes or lesions noted Neuro Neuro Narrative: Alert and oriented x 3 Psych mental status grossly normal Assessment & Plan Assessment/Plan (1) History of ischemic cardiomyopathy: PLAN: Patient has a known severe ischemic cardiomyopathy EF less than 20%. He has an ICD in place. He is tolerating his current medical regiment without incident. His exercise tolerance appears to be baseline by his report. He has had no recurrence of the chest symptoms that brought him to the hospital over the last 24 hours and he has been up and ambulatory. (2) Coronary artery disease: QUALIFIERS: Coronary Disease-Associated Artery/Lesion type: [place] artery [place] vs. transplanted heart: [place] heart Associated angina: with stable angina Qualified Code(s): I25.118 - Atherosclerotic heart disease of [place] coronary artery with other forms of angina pectoris PLAN: Denies any anginal symptoms. The patient is intolerant to long-acting nitrates due to hypotension and intolerant to Ranexa due to a rash. He is tolerating his medical regiment as is today. (3) Left bundle branch block (LBBB): PLAN: He has a chronic left bundle branch block there is an ICD in place. PLAN: Plan 1. Continue his current medical regiment. 2. Please arrange for the patient to get sublingual nitrates to use as needed at discharge. 3. From a cardiovascular standpoint the patient can be discharged to home. 4. The patient should follow-up with Dr. Lawrence in his office at his previous arranged appointment and as needed Charges/Coding Visit Charges Inpatient E&M: 74425 Subs Hosp L2
[2023-10-10 07:25] LABS: Absolute Neutrophil Count 5.4 X10^3/uL (2.0-7.7); Basophil# 0.06 X10^3/uL; Basophil% 0.7 % (0-1); Eosinophil# 0.15 X10^3/uL; Eosinophils% 1.9 % (0-5); Hematocrit 35.2 % (40-54); Hemoglobin 11.3 g/dL (13.0-16.5); Lymphocyte % 22.3 % (19-41); Mean Corp Hgb Conc 32.1 g/dL (32-36); Mean Corpuscular Hgb 30.2 pg (27.0-32.0); Mean Corpuscular Volume 94.1 fL (80-94); Mean Platelet Vol. 13.3 fl (6.2-12.0); Monocyte# 0.63 X10^3/uL; Monocyte% 7.8 % (0-10); NRBC Flagged by Analyzer 0 % (0-5); Neutrophil # 5.37 X10^3/uL (2.7-7.7); Neutrophil % 66.6 % (47-70); Platelet Count 215 K/mm3 (150-450); RBC Distribution Width CV 14.4 % (11.6-14.6); RBC Distribution Width SD 49.4 fl (35.1-43.9); Red Blood Count 3.74 M/mm3 (4.6-6.2); White Blood Count 8.1 K/mm3 (4.4-11.0)
--- NOTE | 2023-10-10 07:43 | DCINST_ITS ---
Discharge Instructions Diet Discharge Diet: Low fat / Low cholesterol and 2000 mg Sodium Diet Activity Discharge Activity: Return to Normal Activity Weight Bearing Status: Weight bearing as tolerated Dressing / Incision Call your doctor if you observe: Fever of 101 or Higher, Coldness, Increased Pain, Numbness or Tingling, Change in Color, Inability to urinate, Inability to have a bowel movement, Shortness of breath, Dizziness, Fainting spells, Swelling in the ankles, Chest pain, Prolonged hiccupping, Increased palpitations (irregular heartbeat) and Calf discomfort Follow Up Care When: IN 2 WEEKS Test Results: Test results from this visit will be discussed in further detail at your follow- up appointment, if applicable. Discharge Plan Admission Admit Date/Time: 10/08/23 11:20 Primary Reason for Your Visit: NSTEMI Attending Provider: Rui Mcleod Primary Care Provider: Jacques Pena Chi Consulting Providers: Abdi Toth; Kim Quiles; Fernando Spence Discharge Orders/Prescriptions Prescriptions: Continued carvedilol 3.125 mg tablet 3.125 mg PO BID Qty: 180 3RF pantoprazole 40 MG tablet 40 mg PO DAILY clopidogrel [Plavix] 75 mg tablet 75 mg PO DAILY Entresto 24-26 mg tablet 1 tab PO BID loratadine [Allergy Relief (loratadine)] 10 mg tablet 10 mg PO DAILY Patient Comments: pt started med yesterday 10/07/23 and had chest pain and shakes after. hasnt taken since. Xarelto 15 mg tablet 15 mg PO DAILY Hold Instructions: Ordered Patient Comments: pt took 1 tab, and then went back to 20mg furosemide 20 mg tablet 20 mg PO Q3D nitroglycerin 0.4 mg tablet, sublingual 0.4 mg sublingual Q5-15M PRN (Reason: chest pain) 30 Days Qty: 30 3RF Changed hydroxyzine HCl 50 mg tablet 25 mg PO Q6H PRN (Reason: itching) 30 Days Qty: 0 0RF Patient Comments: pt started med yesterday 10/07/23 and had chest pain and shakes after. hasnt taken since. Discontinued prednisone 10 mg tablet See Rx Instructions .ROUTE .COMPLEX Patient Comments: started 10/06/23 Rx Instructions: TAKE 3 TABS X 2 DAYS, THEN 2 TABS X 2 DAYS, THEN 1 TAB X 2 DAYS, THEN STOP; Xarelto 20 mg tablet 20 mg PO QPM Referrals / Follow Up: Jacques Pena Chi, MD [Primary Care Provider] -
--- NOTE | 2023-10-10 07:51 | PCM.DC.SUM ---
Providers Date of Admission: 10/08/23 Date of Discharge: 10/10/23 Primary Care Physician: Dr. Jacques Pena MD Consultations 10/08/23 12:07 Consult: Cardiology Routine Consulting Provider: Abdi Toth Reason for Consult: Chest Pain EMERGENT Consult: No MD Notified: Yes Date Notified: 10/08/23 Time Notified: 11:24 Method of Notification: ED Physician Initiated Reason For Visit: NSTEMI Diagnosis Discharge Diagnosis (1) History of ischemic cardiomyopathy: Status: Acute Code(s): Z86.79 - Personal history of other diseases of the circulatory system (2) Coronary artery disease: Status: Acute Code(s): I25.10 - Atherosclerotic heart disease of [place] coronary artery without angina pectoris Qualifiers: Associated angina: with stable angina Coronary Disease-Associated Artery/Lesion type: [place] artery [place] vs. transplanted heart: [place] heart Qualified Code(s): I25.118 - Atherosclerotic heart disease of [place] coronary artery with other forms of angina pectoris (3) Left bundle branch block (LBBB): Status: Chronic Code(s): I44.7 - Left bundle-branch block, unspecified Plan This is 88-year-old gentleman with history of CAD status post multiple stents, chronic heart failure status post AICD was admitted with chest pressure, squeezing in his strangulating and sensation and shortness of breath mainly on exertion. 1. ACS/non-STEMI: Patient is admitted in PCU -Troponin is elevated at 183, 182 and 210 meets the criteria of non-STEMI. Patient on aspirin and Plavix.On Coreg and Entresto and diuretic therapy. Patient in a euvolemic state. On long-acting nitrate Imdur 30 mg daily. Xarelto on hold. Patient is statin intolerant. Fasting profile shows LDL 96, HDL 45. TG 94 3/5: Patient dropped blood pressure on long-acting nitrate and he is allergic to Ranexa in the past. Discussed with the authorization nurse, he needs prescription for sublingual nitro and that is prescribed. Patient on 3 blood thinners in the hospital but at home he is only on Plavix and Xarelto 15 mg daily therefore baby aspirin discontinued. Discharge meds reconciliation done. Patient walked in the hallway without getting short of breath. CAD/HTN/HPL/ischemic cardiomyopathy, EF 15%. Chronic LBBB status post AICD -Patient with 10 stents and a very complex past cardiac history -Has been refractory to some medical therapy due to side effects -Has pacemaker ICD - Last echo shows EF 15%, September 2022. 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 2+ TR, PASP 76 severe pulmonary hypertension. -Most recent cardiac catheterization was done on 09/28/2022 and showed severe [place] coronary artery disease previously stented LAD, circumflex artery with some in-stent stenosis but no high-grade stenosis, right coronary artery with mid segment stenting and minimal in-stent stenosis -Medical therapy was recommended at that time On 20 mg furosemide every 3 days. Will keep that regimen. History of atrial fibrillation -Currently in sinus rhythm Resume Xarelto. -Continue beta-dmitry Chronic left bundle branch block -Stable Patient given a milligram Chronic anemia -Hemoglobin is stable -Monitor GERD -Continue home rivaroxaban Carotid artery disease -Therapy as above to modify secondary risk factors BPH -Nonobstructive as patient is on not on any medication DVT prophylaxis Discontinue Lovenox CODE STATUS -DNR CCA with no intubation as discussed prior to admission Discharge medication reconciliation done. Discharge follow-up instructions completed. Discharge process discussed with the patient and all questions were answered to patient's satisfaction. Follow with PCP in 1 to 2 weeks Total time spent, exact 35 minutes on discharge meds reconciliation, examination, coordination of care with nurses and ancillary staff, review of imaging and blood test and discussion with the patient on follow-up instructions. Laboratory Results Triglycerides 94, Cholesterol 160, LDL Cholesterol 96, VLDL Cholesterol 19, HDL Cholesterol 45 10/10/23 06:50: WBC 8.1, RBC 3.74 L, Hgb 11.3 L, Hct 35.2 L, MCV 94.1 H, MCH 30.2, MCHC 32.1, RDW Std Deviation 49.4 H, RDW Coeff of Dane 14.4, Plt Count 215, MPV 13.3 H, Immature Gran % (Auto) 0.700, Neut % (Auto) 66.6, Lymph % (Auto) 22.3, [place] % (Auto) 7.8, Eos % (Auto) 1.9, Baso % (Auto) 0.7, Absolute Neuts (auto) 5.4, Absolute Lymphs (auto) 1.80, Nucleated RBC % 0, Sodium Pending, Potassium Pending, Chloride Pending, Carbon Dioxide Pending, Anion Gap Pending, BUN Pending, Creatinine Pending, Est GFR (MDRD) Af Amer Pending, Est GFR (MDRD) Non-Af Pending, BUN/Creatinine Ratio Pending, Glucose Pending, Calcium Pending Medications at Discharge Home Medications pantoprazole 40 mg tablet,delayed release 40 mg PO DAILY ACID REFLUX 10/29/16 clopidogrel 75 mg tablet (Plavix) 75 mg PO DAILY BLOOD THINNER 09/26/22 sacubitril 24 mg-valsartan 26 mg tablet (Entresto) 1 tab PO BID HEART FAILURE 09/26/22 carvedilol 3.125 mg tablet 3.125 mg PO BID blood pressure #180 tabs 01/27/23 furosemide 20 mg tablet 20 mg PO Q3D fluid retention 10/08/23 loratadine 10 mg tablet (Allergy Relief (loratadine)) 10 mg PO DAILY allergies 10/08/23 rivaroxaban 15 mg tablet (Xarelto) 15 mg PO DAILY blood thinner 10/08/23 hydroxyzine HCl 50 mg tablet 25 mg (1/2 x 50 mg) PO Q6H PRN itching 30 days #0 tabs 10/10/23 nitroglycerin 0.4 mg sublingual tablet 0.4 mg sublingual Q5-15M PRN chest pain 30 days #30 tabs 10/10/23 Physical Exam Narrative Seen and examined. Currently patient is comfortable no chest pressure or tightness or shortness of breath. Patient walked around the nursing station without getting short of breath at slow pace. Patient admitted with chest pain felt like a squeezing pressure with the strangulating feeling over throat area. Patient seen by authorization nurse and cardiac cath was canceled seemed high risk. Physical exam General: Alert, Oriented x3, Cooperative HEENT: Atraumatic, PERRLA, EOMI, Normocephalic Oral: No Gingival or Mucosal Lesions/ Ulcerations Neck: Supple, No JVD, Negative Carotid Bruits Chest wall/Lungs: Air entry diminished in bilateral lung bases. No crepitation/rhonchi Cardiovascular: short of breathRhythm, Normal S1, Normal S2, Status post AICD on right subclavicular area. Systolic murmur over LLSB. Abdomen: Bowel Sounds Present, Soft, Non Tender, Non-Distended : No dysuria. No renal angle tenderness. No suprapubic tenderness. Extremities: No edema, Capillary Refill Less than 3 Seconds Skin: No rashes, No breakdown Musculoskeletal: No Tenderness to Palpation of Joints or Extremities Neurological: Cranial nerves II-XII grossly intact, DTR 2+/4. No acute focal neurological deficit. Psych/Mental Status: Flat affect. Weight / BMI Weight Weight: 172 lb 6.424 oz Body Mass Index (BMI) 24.7 ABG / Lab / Microbiology Data 10/10/23 06:50 10/10/23 06:50 Laboratory: Laboratory Results - last 24 hr 10/10/23 06:50: WBC 8.1, RBC 3.74 L, Hgb 11.3 L, Hct 35.2 L, MCV 94.1 H, MCH 30.2, MCHC 32.1, RDW Std Deviation 49.4 H, RDW Coeff of Dane 14.4, Plt Count 215, MPV 13.3 H, Immature Gran % (Auto) 0.700, Neut % (Auto) 66.6, Lymph % (Auto) 22.3, [place] % (Auto) 7.8, Eos % (Auto) 1.9, Baso % (Auto) 0.7, Absolute Neuts (auto) 5.4, Absolute Lymphs (auto) 1.80, Nucleated RBC % 0 D/C Instructions Discharge Diet: Low fat / Low cholesterol and 2000 mg Sodium Diet Weight Bearing Status: Weight bearing as tolerated Call your doctor if you observe: Fever of 101 or Higher, Coldness, Increased Pain, Numbness or Tingling, Change in Color, Inability to urinate, Inability to have a bowel movement, Shortness of breath, Dizziness, Fainting spells, Swelling in the ankles, Chest pain, Prolonged hiccupping, Increased palpitations (irregular heartbeat) and Calf discomfort When: IN 2 WEEKS Meaningful Use Info Meaningful Use Diagnoses (Choose all that apply): AMI AMI/Post PCI/Angioplasty Aspirin given w/in 24hrs of arrival?: Yes ASA at discharge?: Yes Statins at discharge?: Yes Jorge Luis/ARB at discharge?: Yes Beta Dmitry at discharge?: Yes Done w/ Acute ND measure.: Yes Discharge Plan Admission Admit Date/Time: 10/08/23 11:20 Primary Reason for Your Visit: NSTEMI Attending Provider: Rui Mcleod Primary Care Provider: Jacques Pena Chi Consulting Providers: Abdi Toth; Kim Quiles; Fernando Spence Discharge Orders/Prescriptions Prescriptions: Continued carvedilol 3.125 mg tablet 3.125 mg PO BID Qty: 180 3RF pantoprazole 40 MG tablet 40 mg PO DAILY clopidogrel [Plavix] 75 mg tablet 75 mg PO DAILY Entresto 24-26 mg tablet 1 tab PO BID loratadine [Allergy Relief (loratadine)] 10 mg tablet 10 mg PO DAILY Patient Comments: pt started med yesterday 10/07/23 and had chest pain and shakes after. hasnt taken since. Xarelto 15 mg tablet 15 mg PO DAILY Hold Instructions: MD Ordered Patient Comments: pt took 1 tab, and then went back to 20mg furosemide 20 mg tablet 20 mg PO Q3D nitroglycerin 0.4 mg tablet, sublingual 0.4 mg sublingual Q5-15M PRN (Reason: chest pain) 30 Days Qty: 30 3RF Changed hydroxyzine HCl 50 mg tablet 25 mg PO Q6H PRN (Reason: itching) 30 Days Qty: 0 0RF Patient Comments: pt started med yesterday 10/07/23 and had chest pain and shakes after. hasnt taken since. Discontinued prednisone 10 mg tablet See Rx Instructions .ROUTE .COMPLEX Patient Comments: started 10/06/23 Rx Instructions: TAKE 3 TABS X 2 DAYS, THEN 2 TABS X 2 DAYS, THEN 1 TAB X 2 DAYS, THEN STOP; Xarelto 20 mg tablet 20 mg PO QPM Referrals / Follow Up: Jacques Pena Chi, MD [Primary Care Provider] - 10/11/23 1:00 pm Roque Lawrence MD [Med Staff - Active Staff] - Within 1 Month Disposition Disposition (needs filled in before D/C Order can be placed): Home, Self Care Charges/Coding Visit Charges Inpatient E&M: 23365 Disch Hosp >30min
[2023-10-10 08:14] LABS: Anion Gap 3 (5-15); BUN 26 mg/dL (7-18); BUN/Creat Ratio 22.2 RATIO (10-20); Calcium,Total 9.3 mg/dL (8.5-10.1); Chloride 109 mmol/L (98-107); Creatinine, Serum 1.17 mg/dL (0.70-1.30); EST Glomerular Filtration Rate 63 mL/min (>60); Est Glom Filt Rate - Afr Amer 76 mL/min (>60); Estimated Creatinine Clearance 45.93 ml/min; Glucose 101 mg/dL (74-106); Potassium 3.6 mmol/L (3.5-5.1); Sodium Level 141 mmol/L (136-145)
[2023-10-10 08:38] VITALS: BP 143/75; PULSE 84; RESP 16; TEMP 36.5; O2SAT 98
[2023-10-10] MEDS: Aspirin 81 MG TAB.CHEW PO (08:45)
[2023-10-10] MEDS: Carvedilol 3.125 MG TABLET PO (08:45)
[2023-10-10] MEDS: SACUBITRIL/VALSARTAN 24/26 MG TABLET 1 EACH PO (08:45)
[2023-10-10] MEDS: Clopidogrel Bisulfate 75 MG Tablet PO (08:45)
[2023-10-10] MEDS: Pantoprazole Sodium 40 MG Tablet PO (08:46)
[2023-10-10] MEDS: Rivaroxaban 15 MG Tablet PO (08:51)
--- NOTE | 2023-10-10 12:00 | CASEMGMT ---
Patient has order for discharge. RN CM in to discuss needs at discharge. Patient denies needs or help at discharge. Patient has no further questions or concerns.
[2023-10-10 12:20] VITALS: O2SAT 96; O2SAT 98
[2023-10-10 12:32] VITALS: BP 123/60; PULSE 72; RESP 16; TEMP 36.4; O2SAT 95
== END 2023-10-10 13:40 | disposition home or self-care (01) | DRG 311 ==
LOC: ED 10:26 → PCU 11:32
PROVIDERS: Admitting Provider Internal Medicine; Emergency Provider Emergency Medicine; PCP Family Medicine Geriatric Medicine; Visit Provider Internal Medicine
DX: I24.9 Acute ischemic heart disease, unspecified (principal); I50.22 Chronic systolic (congestive) heart failure; I11.0 Hypertensive heart disease with heart failure; D64.9 Anemia, unspecified; I48.0 Paroxysmal atrial fibrillation; I77.9 Disorder of arteries and arterioles, unspecified; I44.7 Left bundle-branch block, unspecified; I25.118 Atherosclerotic heart disease of native coronary artery with other forms of angina pectoris; I25.5 Ischemic cardiomyopathy; K21.9 Gastro-esophageal reflux disease without esophagitis; I25.2 Old myocardial infarction; Z79.01 Long term (current) use of anticoagulants; Z79.02 Long term (current) use of antithrombotics/antiplatelets; Z79.899 Other long term (current) drug therapy; Z95.5 Presence of coronary angioplasty implant and graft; Z95.810 Presence of automatic (implantable) cardiac defibrillator; Z86.73 Personal history of transient ischemic attack (TIA), and cerebral infarction without residual deficits; Z66 Do not resuscitate
CPT/HCPCS: 36415; 71045; 80048; 80053; 80061; 84484; 85025; 85027; 93005; 94668; 99285; A4216

== ENCOUNTER → 2023-11-06 | Outpatient (CLI) | payer MEDICARE, OTHER, SELFPAY ==
[2020-04-02 11:50] VITALS: BMI 26.2
[2023-11-06 10:36] LABS: Absolute Lymphocyte Count 0.94 X10^3/uL (0.83-4.51); Absolute Neutrophil Count 4.2 X10^3/uL (2.0-7.7); Basophil# 0.06 X10^3/uL; Eosinophils% 3.4 % (0-5); Hemoglobin 11.2 g/dL (13.0-16.5); Lymphocyte # 0.94 X10^3/ul (0.83-4.51); Lymphocyte % 16.2 % (19-41); Mean Corp Hgb Conc 32.9 g/dL (32-36); Mean Corpuscular Volume 94.2 fL (80-94); Mean Platelet Vol. 12.8 fl (6.2-12.0); Monocyte# 0.43 X10^3/uL; Monocyte% 7.4 % (0-10); NRBC Flagged by Analyzer 0 % (0-5); Neutrophil # 4.17 X10^3/uL (2.7-7.7); Neutrophil % 71.7 % (47-70); Platelet Count 185 K/mm3 (150-450); RBC Distribution Width CV 13.8 % (11.6-14.6); RBC Distribution Width SD 47.6 fl (35.1-43.9); Red Blood Count 3.61 M/mm3 (4.6-6.2); White Blood Count 5.8 K/mm3 (4.4-11.0)
[2023-11-06 11:52] LABS: ALB/GLOB Ratio 1.1 RATIO (0.9-2.4); AST(SGOT) 16 U/L (15-37); Alanine Aminotransfer ALT/SGPT 11 U/L (16-61); Albumin, Serum 3.6 g/dL (3.2-5.0); Alkaline Phosphatase 68 U/L (45-117); Anion Gap 6 (5-15); BUN 21 mg/dL (7-18); BUN/Creat Ratio 16.9 RATIO (10-20); Calcium,Total 9.3 mg/dL (8.5-10.1); Chloride 106 mmol/L (98-107); Creatinine, Serum 1.24 mg/dL (0.70-1.30); EST Glomerular Filtration Rate 59 mL/min (>60); Est Glom Filt Rate - Afr Amer 71 mL/min (>60); Globulin 3.2 g/dL (2.2-4.2); Glucose 102 mg/dL (74-106); Potassium 3.9 mmol/L (3.5-5.1); Protein, Total 6.8 g/dL (6.4-8.2); Sodium Level 140 mmol/L (136-145); Thyroid Stim Hormone (TSH) 2.22 uIU/mL (0.358-3.74)
[2023-11-06 12:13] LABS: Vitamin D,25 Hydroxy 28.1 ng/mL
== END | disposition home or self-care (01) ==
LOC: POLAB3 10:11
PROVIDERS: PCP Family Medicine Geriatric Medicine; Visit Provider Family Medicine Geriatric Medicine
DX: I10 Essential (primary) hypertension (principal); E55.9 Vitamin D deficiency, unspecified
CPT/HCPCS: 36415; 80053; 82306; 84443; 85025

== ENCOUNTER → 2023-11-30 | Outpatient (CLI) | payer MEDICARE, OTHER, SELFPAY ==
[2020-04-02 11:50] VITALS: BMI 26.2
== END | disposition home or self-care (01) ==
LOC: LAB 11:18
PROVIDERS: PCP Family Medicine Geriatric Medicine; Referring Provider Otolaryngology; Visit Provider Otolaryngology
DX: T78.40XA Allergy, unspecified, initial encounter (principal)
CPT/HCPCS: 36415; 86003

== ENCOUNTER → 2024-05-07 | Outpatient (CLI) | payer MEDICARE, OTHER, SELFPAY ==
[2020-04-02 11:50] VITALS: BMI 26.2
[2024-05-07 11:05] LABS: Absolute Lymphocyte Count 1.04 X10^3/uL (0.83-4.51); Absolute Neutrophil Count 6.2 X10^3/uL (2.0-7.7); Basophil# 0.06 X10^3/uL; Basophil% 0.8 % (0-1); Eosinophil# 0.16 X10^3/uL; Hematocrit 35.5 % (40-54); Hemoglobin 11.3 g/dL (13.0-16.5); Lymphocyte # 1.04 X10^3/ul (0.83-4.51); Mean Corp Hgb Conc 31.8 g/dL (32-36); Mean Corpuscular Hgb 30.9 pg (27.0-32.0); Mean Platelet Vol. 13.4 fl (6.2-12.0); Monocyte# 0.51 X10^3/uL; Monocyte% 6.4 % (0-10); NRBC Flagged by Analyzer 0 % (0-5); Neutrophil # 6.19 X10^3/uL (2.7-7.7); Neutrophil % 77.4 % (47-70); Platelet Count 190 K/mm3 (150-450); RBC Distribution Width CV 14.3 % (11.6-14.6); RBC Distribution Width SD 50.3 fl (35.1-43.9); Red Blood Count 3.66 M/mm3 (4.6-6.2)
[2024-05-07 11:28] LABS: PTHIN 41.9 pg/mL (18.4-80.1)
[2024-05-07 11:40] LABS: Vitamin D,25 Hydroxy 29.5 ng/mL
[2024-05-07 11:50] LABS: ALB/GLOB Ratio 1.2 RATIO (0.9-2.4); AST(SGOT) 13 U/L (15-37); Alanine Aminotransfer ALT/SGPT 9 U/L (16-61); Albumin, Serum 3.8 g/dL (3.2-5.0); Alkaline Phosphatase 78 U/L (45-117); Anion Gap 4 (5-15); BUN 20 mg/dL (7-18); BUN/Creat Ratio 16.4 RATIO (10-20); Calcium,Total 9.2 mg/dL (8.5-10.1); Chloride 107 mmol/L (98-107); Creatinine, Serum 1.22 mg/dL (0.70-1.30); EST Glomerular Filtration Rate 60 mL/min (>60); Est Glom Filt Rate - Afr Amer 72 mL/min (>60); Globulin 3.2 g/dL (2.2-4.2); Glucose 137 mg/dL (74-106); Potassium 3.9 mmol/L (3.5-5.1); Sodium Level 139 mmol/L (136-145)
[2024-05-07 14:46] LABS: Phosphorus 2.7 mg/dL (2.5-4.9)
== END | disposition home or self-care (01) ==
LOC: POLAB3 10:46
PROVIDERS: Internal Medicine Nephrology; PCP Family Medicine Geriatric Medicine; Visit Provider Family Medicine Geriatric Medicine
DX: I12.9 Hypertensive chronic kidney disease with stage 1 through stage 4 chronic kidney disease, or unspecified chronic kidney disease (principal); N18.31 Chronic kidney disease, stage 3a; E55.9 Vitamin D deficiency, unspecified
CPT/HCPCS: 36415; 80053; 82306; 83970; 84100; 84443; 85025

== ENCOUNTER 2024-05-22 22:44 | Emergency (ER) | payer MEDICARE, OTHER, SELFPAY ==
[2020-04-02 11:50] VITALS: BMI 26.2
[2024-05-22 22:45] VITALS: BP 147/73; PULSE 86; RESP 18; TEMP 36.8; O2SAT 99
--- NOTE | 2024-05-22 23:18 | RAD_ITS ---
INDICATION: chest pain EXAMINATION/TECHNIQUE: X-RAY - XR Chest 1 View COMPARISON: 10/08/2023. FINDINGS: LINES/DEVICES: Cardiac pacer/AICD and leads are stable. LUNGS: No consolidation or evidence of an effusion. No evidence of edema or a pneumothorax. Stable elevation of the right hemidiaphragm. MEDIASTINUM AND CARDIOVASCULAR STRUCTURES: Cardiac silhouette is normal in size and contour. Mediastinum is unremarkable. BONES AND SOFT TISSUES: No acute abnormality. RAD/Chest 1 View (Portable) IMPRESSION: No evidence of acute cardiopulmonary disease. Electronically Signed: Ken Nicole DO at 0:42 EDT ,
--- NOTE | 2024-05-22 23:18 | EKG12_ITS ---
Test Reason : CP Blood Pressure : / mmHG Vent. Rate : 090 BPM Atrial Rate : 090 BPM P-R Int : 176 ms QRS Dur : 160 ms QT Int : 408 ms P-R-T Axes : 033 -37 122 degrees QTc Int : 499 ms Normal sinus rhythm Left axis deviation Left bundle branch block Abnormal ECG Confirmed by Michael Murillo ([id number]), editor department BITA ROBB ([id number]) on 05/24/2024 1:34:49 PM Referred By: Confirmed By:Michael Murillo
--- NOTE | 2024-05-22 23:21 | EX.ED.DYSGE1 ---
HPI History of Present Illness Chief Complaint: Chest Pain Informant: patient and spouse/S.O. Narrative Narrative: Patient is an 89-year-old male with past medical history of proximal atrial fibrillation congestive heart failure coronary artery disease hypertension ischemic cardiomyopathy. He states he has had multiple heart attacks in the past and has had somewhere along the lines of 16 or more stents. He states that his hspt tutor told him there is nothing further they can do for him. He states this evening he was sitting watching TV when he developed midsternal chest discomfort described as a pressure with shortness of breath. He states he took a sublingual nitro and his symptoms resolved. However because of his history of coronary artery disease he was concerned and therefore presents for evaluation. [facility] Medical History Elevated troponin Atrial fibrillation [place] (myocardial infarction) Secondary pulmonary arterial hypertension Left bundle branch block (LBBB) Paroxysmal atrial fibrillation Constipation Irregular heart beat Pacemaker BPH (benign prostatic hyperplasia) Wears dentures Wears glasses Cancer Bruising Arthritis GERD (gastroesophageal reflux disease) Shortness of breath on exertion Non-smoker Sinus drainage TIA (transient ischemic attack) Acute blood loss anemia Anemia Hematuria Male hypogonadism History of non-ST elevation myocardial infarction (NSTEMI) (12/27/21) Atherosclerosis of coronary artery of [place] heart with angina pectoris Left carotid artery stenosis DDD (degenerative disc disease) Ischemic cardiomyopathy 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 infarction Segmental and somatic dysfunction of thoracic region Segmental and somatic dysfunction of pelvic region Essential (primary) hypertension Hiatal hernia Polycythemia Chronic systolic (congestive) heart failure Nonsustained ventricular tachycardia Carotid artery disease HLD (hyperlipidemia) Home Medications ?Medication ?Instructions ?Recorded ?Last Taken ?Type pantoprazole 40 mg tablet,delayed 40 mg PO DAILY ACID REFLUX 10/29/16 10/07/23 History release clopidogrel 75 mg tablet (Plavix) 75 mg PO DAILY BLOOD THINNER 09/26/22 10/07/23 History furosemide 20 mg tablet 20 mg PO Q3D fluid retention 10/08/23 10/07/23 History rivaroxaban 15 mg tablet (Xarelto) 15 mg PO DAILY blood thinner 10/08/23 10/07/23 History nitroglycerin 0.4 mg sublingual 0.4 mg sublingual Q5-15M PRN chest 10/10/23 Unknown Rx tablet pain 30 days #30 tabs carvedilol 3.125 mg tablet 3.125 mg PO BID blood pressure 01/29/24 Unknown Rx #180 tabs melatonin 10 mg tablet 10 mg PO HS PRN sleep 01/29/24 Unknown History sacubitril 24 mg-valsartan 26 mg 1 tab PO BID HEART FAILURE #60 tabs 02/02/24 Unknown Rx tablet (Entresto) magnesium oxide 400 mg PO QDAY 05/10/24 Unknown History nitroglycerin 0.1 mg/hr 1 patch transdermal DAILY #30 ea 05/23/24 Unknown Rx transdermal 24 hour patch Allergy/AdvReac Type Severity Reaction Status Date / Time hydrochlorothiazide Allergy Severe Severe Verified 05/22/24 22:45 itching rash dapagliflozin (From Farxiga) Allergy Unknown Rash, UTI Verified 05/22/24 22:45 hydroxyzine Allergy Unknown Violent Verified 05/22/24 22:45 shaking promethazine (From Phenergan) Allergy Other Verified 05/22/24 22:45 apixaban (From Eliquis) AdvReac Severe All over Verified 05/22/24 22:45 itching and rash ranolazine (From Ranexa) AdvReac Severe Rash Verified 05/22/24 22:45 omeprazole AdvReac Unknown Verified 05/22/24 22:45 Phenothiazines AdvReac Unknown Verified 05/22/24 22:45 Qgqjzhs-YKR-VxZ Reductase AdvReac myalgias Verified 05/22/24 22:45 Inhibitor (Ayyyydv-Ukx-Prk Reductase Inhibitor) Family History Father , Age 37 from [place] CAD (coronary artery disease) Myocardial infarction Sudden cardiac Mother , age 96 Diabetes Surgical History History of cataract surgery History of hernia repair History of appendectomy History of transurethral resection of prostate (12/16/20) History of intraocular lens implant History of implantable cardiac defibrillator (ICD) (05/17/10) History of coronary artery stent placement (04/19/21) History of left heart catheterization (08/09/21) History of electrophysiologic study (2009) Social History household members: spouse Smoking Status: Never smoker alcohol intake: never substance use type: does not use caffeine: Yes Type: carbonated beverages Number of servings: 1 and coffee Number of servings: 1 what type of physical activity do you participate in: none ROS ROS ED Constitutional Constitutional ED: Denies chills or fever(s) Eyes Eyes: Denies blurry vision or change in vision ENT ENT ED: Denies sore throat Cardiovascular Cardiovascular: Reports chest pain; Denies palpitations or racing heartbeat Respiratory/Chest Respiratory/Chest: Reports dyspnea; Denies cough Gastrointestinal Gastrointestinal: Denies abdominal pain, diarrhea, nausea or vomiting Genitourinary Genitourinary ED: Denies dysuria Musculoskeletal Musculoskeletal: Denies back pain or neck pain Integumentary Denies rash Neurologic Neurologic: Reports weakness; Denies headache(s) Hematologic/Lymphatic Hematologic/Lymphatic: Reports easy bleeding and easy bruising EXAM Physical Exam Const Vital Signs: 05/22/24 22:45 05/22/24 23:18 05/22/24 23:39 Temperature 98.2 F Temperature Source Temporal Pulse Rate 86 68 Respiratory Rate 18 Respiratory Effort Normal Non-Labored Blood Pressure 147/73 H 130/60 H Blood Pressure Mean 97 Pulse Ox 99 Oxygen Delivery Method Room Air 05/22/24 23:45 05/23/24 00:00 05/23/24 01:11 Temperature 98 F Temperature Source Pulse Rate 64 63 65 Respiratory Rate 18 17 22 H Respiratory Effort Blood Pressure 124/59 H 124/55 H 121/59 H Blood Pressure Mean 80 78 79 Pulse Ox 98 97 99 Oxygen Delivery Method Room Air Room Air Positive well nourished and well developed General Appearance ED: well developed and pallor HEENT Reports moist mucous membranes HEENT Narrative: No tongue or lip swelling no oral lesions no airway edema or compromise No secondary findings in the posterior pharynx to suggest infection Eyes PERRL and EOMs intact bilaterally General Eye ED: Negative for scleral icterus Neck supple and no JVD Neck Narrative: No nuchal rigidity or meningeal signs Chest Wall palpation of chest normal Chest Narrative: No bony deformity or crepitance Resp normal respiratory effort and clear to auscultation bilaterally Resp Narrative: Breath sounds are diminished throughout but overall clear to auscultation without nasal flaring retractions tachypnea or accessory muscle use Cardio regular rate and regular rhythm Rate: other Other Details: Heart is regular rate and rhythm Radial and carotid pulses are equal and symmetric No carotid bruit noted GI normal to inspection, nondistended, normoactive bowel sounds, non-tender, non-distended and no masses GI Narrative: No voluntary guarding or rigidity or pulsatile mass Auscultation: normoactive bowel sounds Palpation: soft Extremity Extremity Narrative: Trace pitting edema to the bilateral lower extremities that is equal and symmetric Negative Homans' sign bilaterally Neuro oriented x3, CN's II-XII intact bilaterally and no sensory deficits noted Sensorium / Orientation: alert Motor Exam: strength 5/5 throughout Psych mental status grossly normal Skin no rashes or lesions noted and No skin turgor normal Skin Narrative: Skin turgor is slightly increased General Skin Exam: pallor; Negative for jaundice MDM MDM MDM Narrative Medical decision making narrative: Patient arrived to the ER with stable vitals and reported complete resolution of chest discomfort with his sublingual nitro at home. He has a significant cardiovascular history and therefore there is concern for acute coronary syndrome versus cardiac dysrhythmia but as he also reports feeling fatigue and weakness there is concern for infection such as COVID versus influenza versus RSV versus acute kidney injury versus acute blood loss anemia versus lung pathology such as pneumonia. Chest x-ray revealed no acute lung pathology. Viral swab was negative. Labs showed stable H&H at his baseline as well as stable kidney function. His troponin however was elevated at 173. This does correlate with his history of cardiovascular disease. However he has been pain-free since taking a sublingual nitro and he states that his cardiovascular disease is so severe that cardiology does not recommend he do any type of invasive procedure as it could potentially kill him. As the patient is pain-free and reports he is a cardiac cripple I did discuss the case with the hspt tutor Dr. Murillo. He agrees that the patient is on anticoagulants as well as antiplatelets and he has had resolution of his chest discomfort. With the fact that he has such bad CAD he does not feel there is any benefit in putting the patient in the hospital as he would not qualify for any type of intervention or procedure especially as the patient's vitals are stable and his pain has resolved. He does recommend starting him on low-dose nitro patches daily as he is able to tolerate the topical ointment in the ER. This plan of care was discussed with the patient and his and they are agreeable to it and therefore is otherwise safe for discharge History & Record Review Discussion w/independent historian: Patient and Significant other Lab Data Attestation: I reviewed the patient's lab results. Labs: Laboratory Results - last 24 hr 05/22/24 23:39 WBC 6.8 RBC 3.43 L Hgb 10.8 L Hct 33.2 L MCV 96.8 H MCH 31.5 MCHC 32.5 RDW Std Deviation 50.3 H RDW Coeff of [place]ane 14.3 Plt Count 168 MPV 13.6 H Immature Gran % (Auto) 0.400 Neut % (Auto) 73.6 H Lymph % (Auto) 16.1 L [place] % (Auto) 7.0 Eos % (Auto) 2.3 Baso % (Auto) 0.6 Absolute Neuts (auto) 5.0 Absolute Lymphs (auto) 1.10 Nucleated RBC % 0 Sodium 142 Potassium 4.0 Chloride 109 H Carbon Dioxide 29.0 Anion Gap 4 L BUN 23 H Creatinine 1.22 Estim Creat Clear Calc 43.21 Est GFR (MDRD) Af Amer 72 Est GFR (MDRD) Non-Af 60 BUN/Creatinine Ratio 18.9 Glucose 118 H Calcium 9.2 Magnesium 1.9 Troponin I High Sens 173 H* Radiography Diagnostic Testing: Clinical Impression(s) from Imaging Studies Chest X-Ray 05/22/24 23:18 IMPRESSION: No evidence of acute cardiopulmonary disease. 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 10-12 hrs per 24-hour period No Action melatonin 10 mg tablet 10 mg PO HS PRN (Reason: sleep) carvedilol 3.125 mg tablet 3.125 mg PO BID Qty: 180 3RF magnesium oxide 400 mg magnesium tablet 400 mg PO QDAY pantoprazole 40 MG tablet 40 mg PO DAILY clopidogrel [Plavix] 75 mg tablet 75 mg PO DAILY Xarelto 15 mg tablet 15 mg PO DAILY Patient Comments: pt took 1 tab, and then went back to 20mg furosemide 20 mg tablet 20 mg PO Q3D nitroglycerin 0.4 mg tablet, sublingual 0.4 mg sublingual Q5-15M PRN (Reason: chest pain) 30 Days Qty: 30 3RF Entresto 24-26 mg tablet 1 tab PO BID Qty: 60 11RF Primary Care Provider: Jacques Pena Chi Referrals: Michael Murillo MD [Med Staff - Active Staff] - Jacques Pena Chi, MD [Primary Care Provider] - Activity Restrictions/Additional Instructions: Please add the Nitropatch to your daily treatment regimen. This should help prevent exacerbations of chest pain. If you develop chest discomfort you may take up to 3 sublingual nitro at least 5 minutes apart. If this resolves your pain you are safe to stay home but if the pain persist or you have any further concerns then present to the ER for further evaluation. Print Language: Croatian Disposition Disposition: Home, Self Care Discharge Date/Time: 05/23/24 01:11
[2024-05-22 23:39] VITALS: BP 130/60; PULSE 68
[2024-05-22] MEDS: Nitroglycerin Oint 1 INCH PACKET TD (23:39)
[2024-05-22 23:40] VITALS: BMI 26.3
[2024-05-22 23:45] VITALS: BP 124/59; PULSE 64; RESP 18; O2SAT 98
[2024-05-23] VITALS: BP 124/55; PULSE 63; RESP 17; O2SAT 97
[2024-05-23 00:03] LABS: Basophil# 0.04 X10^3/uL; Basophil% 0.6 % (0-1); Eosinophil# 0.16 X10^3/uL; Eosinophils% 2.3 % (0-5); Hematocrit 33.2 % (40-54); Hemoglobin 10.8 g/dL (13.0-16.5); Lymphocyte % 16.1 % (19-41); Mean Corp Hgb Conc 32.5 g/dL (32-36); Mean Corpuscular Hgb 31.5 pg (27.0-32.0); Mean Corpuscular Volume 96.8 fL (80-94); Mean Platelet Vol. 13.6 fl (6.2-12.0); Monocyte# 0.48 X10^3/uL; NRBC Flagged by Analyzer 0 % (0-5); Neutrophil # 5.03 X10^3/uL (2.7-7.7); Neutrophil % 73.6 % (47-70); Platelet Count 168 K/mm3 (150-450); RBC Distribution Width CV 14.3 % (11.6-14.6); RBC Distribution Width SD 50.3 fl (35.1-43.9); Red Blood Count 3.43 M/mm3 (4.6-6.2); White Blood Count 6.8 K/mm3 (4.4-11.0)
[2024-05-23 00:19] LABS: Anion Gap 4 (5-15); BUN 23 mg/dL (7-18); BUN/Creat Ratio 18.9 RATIO (10-20); Calcium,Total 9.2 mg/dL (8.5-10.1); Chloride 109 mmol/L (98-107); Creatinine, Serum 1.22 mg/dL (0.70-1.30); EST Glomerular Filtration Rate 60 mL/min (>60); Est Glom Filt Rate - Afr Amer 72 mL/min (>60); Estimated Creatinine Clearance 43.21 ml/min; Glucose 118 mg/dL (74-106); Magnesium 1.9 mg/dL (1.6-2.6); Sodium Level 142 mmol/L (136-145); Troponin-I HS 173 pg/mL (3.0-78.0)
[2024-05-23 01:11] VITALS: BP 121/59; PULSE 65; RESP 22; TEMP 36.6; O2SAT 99
== END 2024-05-23 01:11 | disposition home or self-care (01) ==
PROVIDERS: Emergency Provider Emergency Medicine; PCP Family Medicine Geriatric Medicine; Visit Provider Emergency Medicine
DX: I25.118 Atherosclerotic heart disease of native coronary artery with other forms of angina pectoris (principal); I11.0 Hypertensive heart disease with heart failure; I50.22 Chronic systolic (congestive) heart failure; I27.21 Secondary pulmonary arterial hypertension; I48.0 Paroxysmal atrial fibrillation; R06.02 Shortness of breath; I25.5 Ischemic cardiomyopathy; I25.2 Old myocardial infarction; I44.7 Left bundle-branch block, unspecified; I65.22 Occlusion and stenosis of left carotid artery; K21.9 Gastro-esophageal reflux disease without esophagitis; E78.5 Hyperlipidemia, unspecified; M19.90 Unspecified osteoarthritis, unspecified site; Z95.5 Presence of coronary angioplasty implant and graft; Z88.1 Allergy status to other antibiotic agents; Z90.49 Acquired absence of other specified parts of digestive tract; Z86.73 Personal history of transient ischemic attack (TIA), and cerebral infarction without residual deficits; Z79.02 Long term (current) use of antithrombotics/antiplatelets; Z79.01 Long term (current) use of anticoagulants; Z79.899 Other long term (current) drug therapy; Z95.810 Presence of automatic (implantable) cardiac defibrillator
CPT/HCPCS: 71045; 80048; 83735; 84484; 85025; 87631; 93005; 99285; A4216

== ENCOUNTER → 2024-06-20 | Outpatient (CLI) | payer MEDICARE, OTHER, SELFPAY ==
[2020-04-02 11:50] VITALS: BMI 26.2
--- NOTE | 2024-06-20 13:35 | ECHOCS_ITS ---
Reason For Study: CAD/ASHD Procedure This was a 2D Doppler, Color Flow transthoracic echocardiogram. Contrast injection was performed. Exam performed in department. Left Ventricle Severely dilated left ventricle. The left ventricular ejection fraction is 25 %. Stage 1 diastolic dysfunction. There are regional wall motion abnormalities as specified. Right Ventricle Normal RV size. ICD or pacer leads identified within the right ventricle. Normal systolic function. Atria Normal left atrium. Normal right atrium. Mitral Valve Bileaflet diffuse mitral valve thickening. Moderate (2+) eccentric mitral valve insufficiency. Tricuspid Valve Normal tricuspid valve. Mild (1+) tricuspid valve insufficiency. Pulmonary artery systolic pressure is 37 mmHg. Aortic Valve Trisinus/trileaflet aortic valve. Mild focal aortic valve thickening. Mild (1+) aortic valve insufficiency. Pulmonic Valve Normal pulmonic valve. Great Vessels Normal aortic root. The pulmonary artery is normal size. Inferior vena cava collapse with respiration. Pericardium/Pleural No pericardial effusion. Medication 22 gauge I.V. with prn adaptor inserted into right arm. Diluted definity 2ml given slow IV push to enhance endocardial definition. MMode/2D Measurements & Calculations LVIDd: 6.9 cm IVSd: 1.2 cm Ao root diam: 3.5 cm LVIDs: 6.2 cm LVPWd: 0.87 cm RVDd: 3.3 cm FS: 10.6 % LAV(MOD-sp2): 106.0 ml LVAd ap4: 57.9 cm2 SV(MOD-sp4): 20.8 ml LVLd ap4: 10.9 cm SI(MOD-sp4): 10.5 ml/m2 EDV(MOD-sp4): 252.6 ml EDV(sp4-el): 261.5 ml LVAs ap4: 51.3 cm2 LVLs ap4: 9.6 cm ESV(MOD-sp4): 231.8 ml ESV(sp4-el): 232.8 ml EF(MOD-sp4): 8.2 % EF(sp4-el): 11.0 % SV(sp4-el): 28.7 ml LA dimension(2D): 5.1 cm TAPSE: 1.5 cm Time Measurements MV dec time: 0.13 sec Doppler Measurements & Calculations MV E max eben: 88.3 cm/sec Lat Peak E' Eben: 7.7 cm/sec Med Peak E' Eben: 7.6 cm/sec MV A max eben: 90.6 cm/sec E/E' lat: 11.5 E/E' med: 11.6 MV E/A: 0.98 MV V2 max: 118.6 cm/sec MV P1/2t max eben: 104.6 cm/sec Ao V2 max: 109.2 cm/sec MV max P.6 mmHg MV P1/2t: 50.9 msec Ao max P.8 mmHg MV V2 mean: 70.0 cm/sec MV dec slope: 601.2 cm/sec2 Ao V2 mean: 79.6 cm/sec MV mean P.4 mmHg Ao mean P.8 mmHg MV V2 VTI: 25.0 cm MVA(P1/2t): 4.3 cm2 Ao V2 VTI: 25.5 cm AV (velocity ratio): 0.75 AI max eben: 215.8 cm/sec LV V1 max: 93.4 cm/sec MR max eben: 504.4 cm/sec AI max P.6 mmHg LV V1 max P.5 mmHg MR max P.8 mmHg AI dec slope: 93.0 cm/sec2 LV V1 mean P.0 mmHg MR mean eben: 374.6 cm/sec AI P1/2t: 679.8 msec LV V1 mean: 67.2 cm/sec MR mean P.5 mmHg LV V1 VTI: 19.0 cm MR VTI: 167.8 cm PA V2 max: 99.2 cm/sec TR max eben: 285.1 cm/sec TR max P.5 mmHg ECHO/Echo Complete W/ Contrast Interpretation Summary The left ventricular ejection fraction is 25 %. Stage 1 diastolic dysfunction. Pulmonary artery systolic pressure is 37 mmHg. Mild (1+) aortic valve insufficiency. Ordering Physician: Michael Murillo Referring Physician: Michael Murillo Performed By: Azar Flynn RCS
== END | disposition home or self-care (01) ==
LOC: CVS 13:32
PROVIDERS: PCP Family Medicine Geriatric Medicine; Referring Provider Internal Medicine Cardiovascular Disease; Visit Provider Internal Medicine Cardiovascular Disease
DX: I50.21 Acute systolic (congestive) heart failure (principal)
CPT/HCPCS: 93306; Q9957; A4216; C8929

== ENCOUNTER → 2024-09-02 | Outpatient (CLI) | payer MEDICARE, OTHER, SELFPAY ==
[2020-04-02 11:50] VITALS: BMI 26.2
[2024-09-02 12:14] LABS: Hematocrit 34.3 % (40-54); Hemoglobin 11.2 g/dL (13.0-16.5); Mean Corp Hgb Conc 32.7 g/dL (32-36); Mean Corpuscular Hgb 31.5 pg (27.0-32.0); Mean Corpuscular Volume 96.6 fL (80-94); Mean Platelet Vol. 13.9 fl (6.2-12.0); Platelet Count 161 K/mm3 (150-450); RBC Distribution Width SD 49.9 fl (35.1-43.9); Red Blood Count 3.55 M/mm3 (4.6-6.2); White Blood Count 5.9 K/mm3 (4.4-11.0)
[2024-09-02 12:45] LABS: Anion Gap 5 (5-15); BUN 24 mg/dL (7-18); BUN/Creat Ratio 21.4 RATIO (10-20); Calcium,Total 9.6 mg/dL (8.5-10.1); Chloride 108 mmol/L (98-107); Creatinine, Serum 1.12 mg/dL (0.70-1.30); EST Glomerular Filtration Rate 66 mL/min (>60); Est Glom Filt Rate - Afr Amer 80 mL/min (>60); Glucose 154 mg/dL (74-106); Magnesium 2.2 mg/dL (1.6-2.6); Potassium 4.1 mmol/L (3.5-5.1); Sodium Level 141 mmol/L (136-145)
== END | disposition home or self-care (01) ==
LOC: LAB 11:41
PROVIDERS: PCP Family Medicine Geriatric Medicine; Referring Provider Internal Medicine Cardiovascular Disease; Visit Provider Internal Medicine Cardiovascular Disease
DX: I47.29 Other ventricular tachycardia (principal); I50.22 Chronic systolic (congestive) heart failure; I48.0 Paroxysmal atrial fibrillation; Z86.79 Personal history of other diseases of the circulatory system; I25.118 Atherosclerotic heart disease of native coronary artery with other forms of angina pectoris; Z95.810 Presence of automatic (implantable) cardiac defibrillator
CPT/HCPCS: 36415; 80048; 83735; 84443; 85027

== ENCOUNTER → 2024-09-12 | Outpatient (CLI) | payer MEDICARE, OTHER, SELFPAY ==
[2020-04-02 11:50] VITALS: BMI 26.2
--- NOTE | 2024-09-12 14:08 | RAD_ITS ---
EXAM: XR Chest, 2 Views CLINICAL INDICATION: TECHNIQUE: Frontal and lateral views of the chest. COMPARISON: No relevant prior studies available. FINDINGS: LUNGS AND PLEURAL SPACES: See below. HEART: Cardiomegaly with mild congestion. MEDIASTINUM: Unremarkable. Normal mediastinal contour. BONES/JOINTS: Unremarkable. No acute fracture. TUBES, LINES AND DEVICES: Right-sided cardiac pacemaker. RAD/Chest PA and Lateral IMPRESSION: Cardiomegaly with mild congestion. Reading Location: [facility]
[2024-09-12 15:08] LABS: Absolute Lymphocyte Count 1.23 X10^3/uL (0.83-4.51); Absolute Neutrophil Count 4.7 X10^3/uL (2.0-7.7); Basophil# 0.05 X10^3/uL; Basophil% 0.8 % (0-1); Eosinophil# 0.13 X10^3/uL; Hematocrit 34.3 % (40-54); Hemoglobin 11.1 g/dL (13.0-16.5); Lymphocyte # 1.23 X10^3/ul (0.83-4.51); Mean Corp Hgb Conc 32.4 g/dL (32-36); Mean Corpuscular Hgb 31.5 pg (27.0-32.0); Mean Corpuscular Volume 97.4 fL (80-94); Mean Platelet Vol. 14.1 fl (6.2-12.0); Monocyte% 6.2 % (0-10); NRBC Flagged by Analyzer 0 % (0-5); Neutrophil # 4.65 X10^3/uL (2.7-7.7); Neutrophil % 71.8 % (47-70); Platelet Count 164 K/mm3 (150-450); RBC Distribution Width CV 14.6 % (11.6-14.6); RBC Distribution Width SD 51.4 fl (35.1-43.9); Red Blood Count 3.52 M/mm3 (4.6-6.2); White Blood Count 6.5 K/mm3 (4.4-11.0)
[2024-09-12 15:11] LABS: Differential Indicated SCAN CRITERIA MET
[2024-09-12 15:37] LABS: Anion Gap 6 (5-15); BUN 21 mg/dL (7-18); BUN/Creat Ratio 18.1 RATIO (10-20); Chloride 107 mmol/L (98-107); Creatinine, Serum 1.16 mg/dL (0.70-1.30); EST Glomerular Filtration Rate 63 mL/min (>60); Est Glom Filt Rate - Afr Amer 76 mL/min (>60); Glucose 106 mg/dL (74-106); Sodium Level 142 mmol/L (136-145)
[2024-09-12 17:09] LABS: Anisocytosis 1+; Platelet Estimate ADEQUATE (ADEQ); Platelet Morphology GIANT
[2024-09-12 17:26] LABS: BNP,B-Type NATRIURETIC PEPTIDE 374.6 pg/mL (0-100)
== END | disposition home or self-care (01) ==
LOC: RAD 14:07
PROVIDERS: PCP Family Medicine Geriatric Medicine; Referring Provider Nurse Practitioner Family; Visit Provider Nurse Practitioner Family
DX: I50.22 Chronic systolic (congestive) heart failure (principal); Z86.79 Personal history of other diseases of the circulatory system; I25.118 Atherosclerotic heart disease of native coronary artery with other forms of angina pectoris; Z95.810 Presence of automatic (implantable) cardiac defibrillator; R06.02 Shortness of breath; Z79.01 Long term (current) use of anticoagulants; Z51.81 Encounter for therapeutic drug level monitoring; Z79.899 Other long term (current) drug therapy
CPT/HCPCS: 36415; 71046; 80048; 83880; 85025

== ENCOUNTER → 2024-09-20 | Outpatient (CLI) | payer MEDICARE, OTHER, SELFPAY ==
[2020-04-02 11:50] VITALS: BMI 26.2
[2024-09-20 11:22] LABS: AST(SGOT) 13 U/L (15-37); Alanine Aminotransfer ALT/SGPT 10 U/L (16-61)
== END | disposition home or self-care (01) ==
LOC: LAB 10:23
PROVIDERS: PCP Family Medicine Geriatric Medicine; Referring Provider Internal Medicine Clinical Cardiac Electrophysiology; Visit Provider Internal Medicine Clinical Cardiac Electrophysiology
DX: I48.0 Paroxysmal atrial fibrillation (principal); I47.29 Other ventricular tachycardia; I44.7 Left bundle-branch block, unspecified; Z79.01 Long term (current) use of anticoagulants
CPT/HCPCS: 36415; 84443; 84450; 84460

== ENCOUNTER → 2024-11-07 | Outpatient (CLI) | payer MEDICARE, OTHER, SELFPAY ==
[2020-04-02 11:50] VITALS: BMI 26.2
[2024-11-07 11:20] LABS: Absolute Lymphocyte Count 1.09 X10^3/uL (0.83-4.51); Absolute Neutrophil Count 5.4 X10^3/uL (2.0-7.7); Basophil# 0.06 X10^3/uL; Basophil% 0.8 % (0-1); Eosinophil# 0.16 X10^3/uL; Eosinophils% 2.2 % (0-5); Hematocrit 33.7 % (40-54); Hemoglobin 10.8 g/dL (13.0-16.5); Lymphocyte # 1.09 X10^3/ul (0.83-4.51); Lymphocyte % 15.1 % (19-41); Mean Corpuscular Hgb 31.2 pg (27.0-32.0); Mean Corpuscular Volume 97.4 fL (80-94); Mean Platelet Vol. 13.5 fl (6.2-12.0); Monocyte# 0.46 X10^3/uL; Monocyte% 6.4 % (0-10); NRBC Flagged by Analyzer 0 % (0-5); Neutrophil # 5.42 X10^3/uL (2.7-7.7); Neutrophil % 75.2 % (47-70); POSITIVE MORPHOLOGY YES; Platelet Count 173 K/mm3 (150-450); RBC Distribution Width CV 14.4 % (11.6-14.6); RBC Distribution Width SD 51.5 fl (35.1-43.9); Red Blood Count 3.46 M/mm3 (4.6-6.2); White Blood Count 7.2 K/mm3 (4.4-11.0)
[2024-11-07 12:40] LABS: AST(SGOT) 17 U/L (<=37); Alanine Aminotransfer ALT/SGPT 5 U/L (<=46); Albumin, Serum 4.2 g/dL (3.4-4.8); Alkaline Phosphatase 65 U/L (40-129); Anion Gap 10 (5-15); BUN 26 mg/dL (4-19); BUN/Creat Ratio 20.6 RATIO (10-20); Calcium,Total 9.6 mg/dL (7.6-11.0); Carbon Dioxide 25.2 mmol/L (21.0-32.0); Chloride 106 mmol/L (98-108); Creatinine, Serum 1.26 mg/dL (0.70-1.20); EST Glomerular Filtration Rate 55 (>60); Glucose 101 mg/dL (70-99); Potassium 4.1 mmol/L (3.3-5.1); Sodium Level 142 mmol/L (133-145); Total Bilirubin 0.49 mg/dL (0.00-1.30)
[2024-11-07 12:45] LABS: ALB/GLOB Ratio 1.6 RATIO (0.9-2.4); Globulin 2.7 g/dL (2.2-4.2); Protein, Total 6.9 g/dL (5.9-8.4)
[2024-11-07 13:09] LABS: Differential Indicated SCAN CRITERIA MET
== END | disposition home or self-care (01) ==
LOC: LAB 10:45
PROVIDERS: PCP Family Medicine Geriatric Medicine; Referring Provider Family Medicine Geriatric Medicine; Visit Provider Family Medicine Geriatric Medicine
DX: I10 Essential (primary) hypertension (principal); E55.9 Vitamin D deficiency, unspecified
CPT/HCPCS: 36415; 80053; 82306; 84443; 85025

== ENCOUNTER 2025-01-16 14:41 | Emergency (ER) | payer MEDICARE, OTHER, SELFPAY ==
[2020-04-02 11:50] VITALS: BMI 26.2
[2025-01-16] VITALS (9 sets, daily range): BP systolic 112–155; BP diastolic 57–68; PULSE 68–83; RESP 16; TEMP 36.6–37; O2SAT 99–100; BMI 25.1
--- NOTE | 2025-01-16 14:57 | ED.RN ---
PT HAS EXTENSIVE CARDIAC HX, C/O CHEST PAIN/HEAVINESS IN THE STERNAL AREA. HAVING SOME SOB, DIZZINESS, AND WEAKNESS PER PT AND HIS . EKG COMPLETED
--- NOTE | 2025-01-16 15:04 | EX.ED.DYSGE1 ---
HPI <LYNN Vicente - Last Filed: 01/16/25 19:45> History of Present Illness Chief Complaint: Hypotension Narrative Narrative: Patient presenting today due to concerns for low blood pressure. He checks his blood pressure daily, over the past few days it has been reading low he then got it to read with a systolic around 70 which is unusual for him. He reached out to his [employer]'s office, they recommended he come in for evaluation. He reports chronic chest pressure, this does not seem to be any worse today. He does report he has been feeling somewhat more short of breath with exertion and weak over the past few days. He denies fevers, chills, nausea, vomiting, abdominal pain, and urinary symptoms. He has a PMH of extensive CAD on Plavix, A-fib on Xarelto, CHF, defibrillator and pacemaker placement. PFSH <LYNN Vicente - Last Filed: 01/16/25 19:45> [facility] Medical History Monomorphic ventricular tachycardia Elevated troponin Atrial fibrillation [place] (myocardial infarction) Secondary pulmonary arterial hypertension Left bundle branch block (LBBB) Paroxysmal atrial fibrillation Constipation Irregular heart beat Pacemaker BPH (benign prostatic hyperplasia) Wears dentures Wears glasses Cancer Bruising Arthritis GERD (gastroesophageal reflux disease) Shortness of breath on exertion Non-smoker Sinus drainage TIA (transient ischemic attack) Acute blood loss anemia Anemia Hematuria Male hypogonadism History of non-ST elevation myocardial infarction (NSTEMI) (12/27/21) Atherosclerosis of coronary artery of [place] heart with angina pectoris Left carotid artery stenosis DDD (degenerative disc disease) Ischemic cardiomyopathy 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 infarction Segmental and somatic dysfunction of thoracic region Segmental and somatic dysfunction of pelvic region Essential (primary) hypertension Hiatal hernia Polycythemia Chronic systolic (congestive) heart failure Nonsustained ventricular tachycardia Carotid artery disease HLD (hyperlipidemia) Home Medications ?Medication ?Instructions ?Recorded ?Last Taken ?Type pantoprazole 40 mg tablet,delayed 40 mg PO DAILY ACID REFLUX 10/29/16 01/16/25 History release clopidogrel 75 mg tablet (Plavix) 75 mg PO DAILY BLOOD THINNER 09/26/22 01/16/25 History furosemide 20 mg tablet 20 mg PO Q3D fluid retention 10/08/23 01/15/25 History rivaroxaban 15 mg tablet (Xarelto) 15 mg PO DAILY blood thinner 10/08/23 01/16/25 History nitroglycerin 0.4 mg sublingual 0.4 mg sublingual Q5-15M PRN chest 10/10/23 Unknown Rx tablet pain 30 days #30 tabs carvedilol 3.125 mg tablet 3.125 mg PO BID blood pressure 01/29/24 01/16/25 Rx #180 tabs melatonin 10 mg tablet 10 mg PO HS PRN sleep 01/29/24 Unknown History sacubitril 24 mg-valsartan 26 mg 1 tab PO BID HEART FAILURE 11/28/24 Unknown History tablet (Entresto) Allergy/AdvReac Type Severity Reaction Status Date / Time hydrochlorothiazide Allergy Severe Severe Verified 01/16/25 14:45 itching rash dapagliflozin (From Farxiga) Allergy Unknown Rash, UTI Verified 01/16/25 14:45 hydroxyzine Allergy Unknown Violent Verified 01/16/25 14:45 shaking promethazine (From Phenergan) Allergy Other Verified 01/16/25 14:45 apixaban (From Eliquis) AdvReac Severe All over Verified 01/16/25 14:45 itching and rash ranolazine (From Ranexa) AdvReac Severe Rash Verified 01/16/25 14:45 omeprazole AdvReac Unknown Verified 01/16/25 14:45 Phenothiazines AdvReac Unknown Verified 01/16/25 14:45 Nvgzoby-DZF-SnT Reductase AdvReac myalgias Verified 01/16/25 14:45 Inhibitor (Asjnlfk-Lrp-Abp Reductase Inhibitor) Family History Father , Age 37 from [place] CAD (coronary artery disease) Myocardial infarction Sudden cardiac Mother , age 96 Diabetes Surgical History History of cataract surgery History of hernia repair History of appendectomy History of transurethral resection of prostate (12/16/20) History of intraocular lens implant History of implantable cardiac defibrillator (ICD) (05/17/10) History of coronary artery stent placement (04/19/21) History of left heart catheterization (08/09/21) History of electrophysiologic study (2009) Social History household members: spouse Smoking Status: Never smoker alcohol intake: never substance use type: does not use caffeine: Yes Type: carbonated beverages Number of servings: 1 and coffee Number of servings: 1 what type of physical activity do you participate in: none ROS <LYNN Vicente - Last Filed: 01/16/25 19:45> ROS ED Constitutional Constitutional ED: Denies chills or fever(s) ENT ENT ED: Reports nasal congestion Cardiovascular Cardiovascular: Reports other Details: Chest pressure ; Denies palpitations Respiratory/Chest Respiratory/Chest: Reports cough and dyspnea on exertion Gastrointestinal Gastrointestinal: Denies abdominal pain, nausea or vomiting Musculoskeletal Musculoskeletal: Denies arthralgias or myalgias Integumentary Denies rash Neurologic Neurologic: Reports weakness EXAM <LYNN Vicente - Last Filed: 01/16/25 19:45> Physical Exam Const Vital Signs: 01/16/25 14:43 01/16/25 14:56 01/16/25 15:01 Temperature 98.6 F Temperature Source Oral Pulse Rate 73 Pulse Rate [Lying] Pulse Rate [Sitting (for 1 minute prior to obtaining)] Pulse Rate [Standing (for 1 minute prior to obtaining)] Respiratory Rate 16 Respiratory Effort Short of Breath Respiratory Pattern Normal Blood Pressure 112/58 L Blood Pressure [Lying] Blood Pressure [Sitting (for 1 minute prior to obtaining)] Blood Pressure [Standing (for 1 minute prior to obtaining)] Blood Pressure Mean 76 Blood Pressure Mean [Lying] Blood Pressure Mean [Sitting (for 1 minute prior to obtaining)] Blood Pressure Mean [Standing (for 1 minute prior to obtaining)] Pulse Ox 100 100 Oxygen Delivery Method Room Air Room Air 01/16/25 15:45 01/16/25 16:00 01/16/25 16:11 Temperature Temperature Source Pulse Rate 71 69 Pulse Rate [Lying] 72 Pulse Rate [Sitting (for 1 minute prior to obtaining)] 68 Pulse Rate [Standing (for 1 minute prior to obtaining)] 79 Respiratory Rate 16 16 Respiratory Effort Respiratory Pattern Blood Pressure 155/57 H 116/58 L Blood Pressure [Lying] 119/62 Blood Pressure [Sitting (for 1 minute prior to obtaining)] 124/66 H Blood Pressure [Standing (for 1 minute prior to obtaining)] 123/65 H Blood Pressure Mean 89 77 Blood Pressure Mean [Lying] 81 Blood Pressure Mean [Sitting (for 1 minute prior to obtaining)] 85 Blood Pressure Mean [Standing (for 1 minute prior to obtaining)] 84 Pulse Ox 100 100 Oxygen Delivery Method Room Air Room Air 01/16/25 17:04 01/16/25 18:21 01/16/25 18:22 Temperature 97.9 F Temperature Source Pulse Rate 68 83 78 Pulse Rate [Lying] Pulse Rate [Sitting (for 1 minute prior to obtaining)] Pulse Rate [Standing (for 1 minute prior to obtaining)] Respiratory Rate 16 16 16 Respiratory Effort Respiratory Pattern Blood Pressure 117/61 125/68 H 125/68 H Blood Pressure [Lying] Blood Pressure [Sitting (for 1 minute prior to obtaining)] Blood Pressure [Standing (for 1 minute prior to obtaining)] Blood Pressure Mean 79 87 87 Blood Pressure Mean [Lying] Blood Pressure Mean [Sitting (for 1 minute prior to obtaining)] Blood Pressure Mean [Standing (for 1 minute prior to obtaining)] Pulse Ox 99 100 100 Oxygen Delivery Method Room Air Room Air Positive well nourished, well developed and no apparent distress General Appearance ED: well developed HEENT Reports normocephalic and head/scalp atraumatic Mouth ED: Yes moist mucous membranes normal Eyes PERRL and EOMs intact bilaterally Neck full ROM and supple Chest Wall inspection of chest normal Resp normal respiratory effort and clear to auscultation bilaterally Cardio regular rate and regular rhythm GI soft to palpation, non-tender, non-distended and no masses Back/Spine normal ROM and normal to inspection Extremity normal to inspection and full ROM General Extremety ED: Negative for edema General Extremity: Negative for edema Neuro oriented x3, CN's II-XII intact bilaterally, moves all extremities, no focal motor deficits and no sensory deficits noted Sensorium / Orientation: awake and alert Psych mental status grossly normal and thought process normal Skin no rashes or lesions noted and no wounds <Dr. Azar Melendez, DO - Last Filed: 01/17/25 21:08> Physical Exam Const Vital Signs: 01/16/25 14:43 01/16/25 14:56 01/16/25 15:01 Temperature 98.6 F Temperature Source Oral Pulse Rate 73 Pulse Rate [Lying] Pulse Rate [Sitting (for 1 minute prior to obtaining)] Pulse Rate [Standing (for 1 minute prior to obtaining)] Respiratory Rate 16 Respiratory Effort Short of Breath Respiratory Pattern Normal Blood Pressure 112/58 L Blood Pressure [Lying] Blood Pressure [Sitting (for 1 minute prior to obtaining)] Blood Pressure [Standing (for 1 minute prior to obtaining)] Blood Pressure Mean 76 Blood Pressure Mean [Lying] Blood Pressure Mean [Sitting (for 1 minute prior to obtaining)] Blood Pressure Mean [Standing (for 1 minute prior to obtaining)] Pulse Ox 100 100 Oxygen Delivery Method Room Air Room Air 01/16/25 15:45 01/16/25 16:00 01/16/25 16:11 Temperature Temperature Source Pulse Rate 71 69 Pulse Rate [Lying] 72 Pulse Rate [Sitting (for 1 minute prior to obtaining)] 68 Pulse Rate [Standing (for 1 minute prior to obtaining)] 79 Respiratory Rate 16 16 Respiratory Effort Respiratory Pattern Blood Pressure 155/57 H 116/58 L Blood Pressure [Lying] 119/62 Blood Pressure [Sitting (for 1 minute prior to obtaining)] 124/66 H Blood Pressure [Standing (for 1 minute prior to obtaining)] 123/65 H Blood Pressure Mean 89 77 Blood Pressure Mean [Lying] 81 Blood Pressure Mean [Sitting (for 1 minute prior to obtaining)] 85 Blood Pressure Mean [Standing (for 1 minute prior to obtaining)] 84 Pulse Ox 100 100 Oxygen Delivery Method Room Air Room Air 01/16/25 17:04 01/16/25 18:21 01/16/25 18:22 Temperature 97.9 F Temperature Source Pulse Rate 68 83 78 Pulse Rate [Lying] Pulse Rate [Sitting (for 1 minute prior to obtaining)] Pulse Rate [Standing (for 1 minute prior to obtaining)] Respiratory Rate 16 16 16 Respiratory Effort Respiratory Pattern Blood Pressure 117/61 125/68 H 125/68 H Blood Pressure [Lying] Blood Pressure [Sitting (for 1 minute prior to obtaining)] Blood Pressure [Standing (for 1 minute prior to obtaining)] Blood Pressure Mean 79 87 87 Blood Pressure Mean [Lying] Blood Pressure Mean [Sitting (for 1 minute prior to obtaining)] Blood Pressure Mean [Standing (for 1 minute prior to obtaining)] Pulse Ox 99 100 100 Oxygen Delivery Method Room Air Room Air MDM <LYNN Vicente - Last Filed: 01/16/25 19:45> [facility] MDM Narrative Medical decision making narrative: Patient presenting today due to concerns for low blood pressure readings at home. He reports that his cough has been reading, low over the last few days. He is not sure if something is wrong with his cuff or not. Here his blood pressure has ranged from around 112-125 systolic over 58-68. He is otherwise nontoxic-appearing. He has chronic dyspnea with exertion, he is on Xarelto, low suspicion for PE. He has a history of CHF, his echo in 2023 showed EF of 25%, I am hesitant to give him IV fluids. He is tolerating p.o. intake. Labs obtained, his CBC shows a chronic anemia with a hemoglobin of 11.2, his BUN is 26, creatinine is 1.47 which is slightly increased. Nonsignificant delta troponin, his BNP is 1963. Chest x-ray negative for acute cardiopulmonary abnormality. He does not appear fluid overloaded. UA negative for UTI. I spoke with Dr. Murillo, he feels that patient can follow-up as an outpatient, he suspects that his blood pressure cuff has malfunctioned. He is not concerned with his blood pressure as it is normally in this range. Patient ambulated and did well. His orthostatic vital signs were negative. He would like to go home. Recommended that he bring his blood pressure cuff into his PCP or [employer] office to have it checked and follow-up as an outpatient. Return instructions discussed and patient discharged home in stable condition. Lab Data Attestation: I reviewed the patient's lab results. Labs: Laboratory Results - last 24 hr 01/16/25 01/16/25 01/16/25 15:10 16:52 17:23 WBC 6.9 RBC 3.59 L Hgb 11.2 L Hct 34.3 L MCV 95.5 H MCH 31.2 MCHC 32.7 RDW Std Deviation 49.5 H RDW Coeff of Dane 14.3 Plt Count 171 MPV 14.0 H Immature Gran % (Auto) 0.300 Neut % (Auto) 71.7 H Lymph % (Auto) 18.2 L Howard % (Auto) 6.9 Eos % (Auto) 2.3 Baso % (Auto) 0.6 Absolute Neuts (auto) 5.0 Absolute Lymphs (auto) 1.26 Nucleated RBC % 0 Differential Comment SCANNED Platelet Estimate ADEQUATE Sodium 141 Potassium 4.1 Chloride 102 Carbon Dioxide 26.8 Anion Gap 11 BUN 26 H Creatinine 1.47 H Estim Creat Clear Calc 35.87 L Est GFR (MDRD) Non-Af 46 L BUN/Creatinine Ratio 17.7 Glucose 118 H Calcium 9.6 Troponin T High Sens 28 H Troponin T Hi Sens 2 Hr 25 H NT pro BNP II 1963 H Urine Color Yellow Urine Clarity Clear Urine pH 6.0 Ur Specific [place] 1.015 Urine Protein 30 H Urine Glucose (UA) Normal Urine Ketones Negative Urine Occult Blood 10 H Urine Nitrite Negative Urine Bilirubin Negative Urine Urobilinogen 1 H Ur Leukocyte Esterase 25 H Urine RBC 0 SEEN Urine WBC 0-5 SEEN Ur Squamous Epith Cells 0-5 SEEN Triple Phos Crystals J0 Urine Bacteria 0 SEEN Urine Mucus 0 SEEN Radiography X-Ray: Read by ED Physician Diagnostic Testing: Clinical Impression(s) from Imaging Studies Chest X-Ray 01/16/25 15:10 IMPRESSION: No acute abnormality is seen. Reading Location: [place] [id number] EKG Initial EKG: Comments: 76 bpm, sinus rhythm with occasional PVCs, no ST elevation, branch block, interpreted by attending ED physician <Dr. Azra Melendez, DO - Last Filed: 01/17/25 21:08> [facility] MDM Narrative Medical decision making narrative: Patient presenting today due to concerns for low blood pressure readings at home. He reports that his cough has been reading, low over the last few days. He is not sure if something is wrong with his cuff or not. Here his blood pressure has ranged from around 112-125 systolic over 58-68. He is otherwise nontoxic-appearing. He has chronic dyspnea with exertion, he is on Xarelto, low suspicion for PE. He has a history of CHF, his echo in 2023 showed EF of 25%, I am hesitant to give him IV fluids. He is tolerating p.o. intake. Labs obtained, his CBC shows a chronic anemia with a hemoglobin of 11.2, his BUN is 26, creatinine is 1.47 which is slightly increased. Nonsignificant delta troponin, his BNP is 1962. Chest x-ray negative for acute cardiopulmonary abnormality. He does not appear fluid overloaded. UA negative for UTI. I spoke with Dr. Murillo, he feels that patient can follow-up as an outpatient, he suspects that his blood pressure cuff has malfunctioned. He is not concerned with his blood pressure as it is normally in this range. Patient ambulated and did well. His orthostatic vital signs were negative. He would like to go home. Recommended that he bring his blood pressure cuff into his PCP or [employer] office to have it checked and follow-up as an outpatient. Return instructions discussed and patient discharged home in stable condition. Supervisory Physician Note Patient was seen and examined with the Advanced Practice Provider. Nursing notes and vital signs have been reviewed. Pertinent old records have been reviewed. I agree with the essential elements of the AMBER's history, physical exam, assessment, and plan. The differential diagnosis and management options were discussed with the AMBER. I participated in determining and agree with the management, procedures, final impression and disposition as documented. See changes noted by me. Please see addendum or separate note for any additional details. 89-year-old male with extensive cardiac past medical history presents for evaluation for concern of low blood pressure. Associated symptom is chronic episodic chest pressure and weakness. Gen: A&O x3, NAD Head: Normocephalic, atraumatic Eyes: No sclera icterus, conjunctiva clear ENT: Moist mucous membranes Neck: Trachea midline, No JVD CV: RRR, no murmurs, no peripheral edema Resp: Lungs CTA BL, no w/r/c GI: Abd soft, non-distended, non-tender, no r/r/g Musc: Full ROM, no deformity Skin: Warm, dry Neuro: Alert, oriented, grossly intact, sensation intact Psych: Cooperative, appropriate mood and affect Differential diagnosis includes but is not limited to an accurate blood pressure cuff, orthostatic hypotension, medication side effect, dehydration, PILAR, UTI. Suspect less likely CHF exacerbation, ACS. On presentation, vital signs are unremarkable without hypotension. EKG and chest x-ray were personally reviewed and interpreted by me, ED physician. Patient's orthostatic vital signs were negative. CBC without leukocytosis. Patient has baseline anemia. BMP shows worsening renal insufficiency. BUN 26 with a creatinine of 1.47. In November BUN was 26 with a creatinine of 1.26. Given patient's EF of 25% will not be giving any fluids as we do not want to cause a CHF exacerbation. Increasing creatinine is likely secondary to his diuretic use. Troponin 28 and 25. Patient not endorsing any chest pain at this time. BUN is elevated at 1963. However patient is not fluid overloaded on physical exam or chest x-ray. Not in overt CHF exacerbation. UA negative for UTI. At this point in time, no clear etiology to explain the patient's hypotension that he observed at home. He has remained asymptomatic here in the emergency department without any episodes of hypotension. Given his cardiac history, cardiology was consulted and patient was discussed. Plan is to follow-up outpatient. Cardiology agrees that his blood pressure cuff has likely malfunctioned. Currently a etiology is not concerned as well as they state his blood pressure is normally within this range. Patient ambulated without difficulty. Patient discharged home. Return precautions were explained. Impression: 1. Reported hypotension 2. Renal insufficiency 3. History of CHF Lab Data Labs: Laboratory Results - last 24 hr 01/16/25 01/16/25 01/16/25 15:10 16:52 17:23 WBC 6.9 RBC 3.59 L Hgb 11.2 L Hct 34.3 L MCV 95.5 H MCH 31.2 MCHC 32.7 RDW Std Deviation 49.5 H RDW Coeff of Dane 14.3 Plt Count 171 MPV 14.0 H Immature Gran % (Auto) 0.300 Neut % (Auto) 71.7 H Lymph % (Auto) 18.2 L Howard % (Auto) 6.9 Eos % (Auto) 2.3 Baso % (Auto) 0.6 Absolute Neuts (auto) 5.0 Absolute Lymphs (auto) 1.26 Nucleated RBC % 0 Differential Comment SCANNED Platelet Estimate ADEQUATE Sodium 141 Potassium 4.1 Chloride 102 Carbon Dioxide 26.8 Anion Gap 11 BUN 26 H Creatinine 1.47 H Estim Creat Clear Calc 35.87 L Est GFR (MDRD) Non-Af 46 L BUN/Creatinine Ratio 17.7 Glucose 118 H Calcium 9.6 Troponin T High Sens 28 H Troponin T Hi Sens 2 Hr 25 H NT pro BNP II 1963 H Urine Color Yellow Urine Clarity Clear Urine pH 6.0 Ur Specific [place] 1.015 Urine Protein 30 H Urine Glucose (UA) Normal Urine Ketones Negative Urine Occult Blood 10 H Urine Nitrite Negative Urine Bilirubin Negative Urine Urobilinogen 1 H Ur Leukocyte Esterase 25 H Urine RBC 0 SEEN Urine WBC 0-5 SEEN Ur Squamous Epith Cells 0-5 SEEN Triple Phos Crystals J0 Urine Bacteria 0 SEEN Urine Mucus 0 SEEN Radiography Diagnostic Testing: Clinical Impression(s) from Imaging Studies Chest X-Ray 06/12/25 15:10 IMPRESSION: No acute abnormality is seen. Reading Location: [place] [address] Discharge Plan Triage Chief Complaint: Hypotension ED Midlevel Provider: Diana Hanson ED Provider: Azar Melendez Dx/Rx/DC Orders Clinical Impression: Chronic systolic (congestive) heart failure, Weakness, Chronic dyspnea Instructions: Heart Failure Dc, ED Dyspnea Prescriptions: No Action melatonin 10 mg tablet 10 mg PO HS PRN (Reason: sleep) carvedilol 3.125 mg tablet 3.125 mg PO BID Qty: 180 3RF Entresto 24-26 mg tablet 1 tab PO BID pantoprazole 40 MG tablet 40 mg PO DAILY clopidogrel [Plavix] 75 mg tablet 75 mg PO DAILY Xarelto 15 mg tablet 15 mg PO DAILY Patient Comments: pt took 1 tab, and then went back to 20mg furosemide 20 mg tablet 20 mg PO Q3D nitroglycerin 0.4 mg tablet, sublingual 0.4 mg sublingual Q5-15M PRN (Reason: chest pain) 30 Days Qty: 30 3RF Primary Care Provider: Jacques Pena Chi Referrals: Jacques Pena Chi, MD [Primary Care Provider] - Activity Restrictions/Additional Instructions: Follow-up with cardiology, please bring your blood pressure cuff to your next PCP or cardiology appointment to have it checked. Return for any other concerns. Print Language: Citizen [place] Disposition Disposition: Home, Self Care Discharge Date/Time: 01/16/25 18:31
--- NOTE | 2025-01-16 15:10 | RAD_ITS ---
PROCEDURE: CHEST PA AND LATERAL 01/16/2025 REASON FOR EXAM: CHEST PAIN TECHNIQUE: Frontal and lateral views of the chest. COMPARISON: Prior study dated May 22, 2024. FINDINGS: Hardware: EKG electrodes are seen. A right-sided dual-chamber pacemaker is present. Heart: Borderline cardiomegaly. Mediastinum: The mediastinal contour is stable. Lungs: Stable elevation of the right hemidiaphragm. No acute abnormality is seen. Bones: Degenerative changes are identified within the thoracic spine. RAD/Chest PA and Lateral IMPRESSION: No acute abnormality is seen. Reading Location: [place] [id number]
[2025-01-16 15:23] LABS: Absolute Lymphocyte Count 1.26 X10^3/uL (0.83-4.51); Basophil# 0.04 X10^3/uL; Basophil% 0.6 % (0-1); Eosinophil# 0.16 X10^3/uL; Eosinophils% 2.3 % (0-5); Hematocrit 34.3 % (40-54); Hemoglobin 11.2 g/dL (13.0-16.5); Lymphocyte # 1.26 X10^3/ul (0.83-4.51); Lymphocyte % 18.2 % (19-41); Mean Corp Hgb Conc 32.7 g/dL (32-36); Mean Corpuscular Hgb 31.2 pg (27.0-32.0); Mean Corpuscular Volume 95.5 fL (80-94); Monocyte# 0.48 X10^3/uL; Monocyte% 6.9 % (0-10); NRBC Flagged by Analyzer 0 % (0-5); Neutrophil # 4.97 X10^3/uL (2.7-7.7); Neutrophil % 71.7 % (47-70); POSITIVE MORPHOLOGY YES; Platelet Count 171 K/mm3 (150-450); RBC Distribution Width CV 14.3 % (11.6-14.6); RBC Distribution Width SD 49.5 fl (35.1-43.9); Red Blood Count 3.59 M/mm3 (4.6-6.2); White Blood Count 6.9 K/mm3 (4.4-11.0)
[2025-01-16 15:45] LABS: Anion Gap 11 (5-15); BUN 26 mg/dL (4-19); BUN/Creat Ratio 17.7 RATIO (10-20); Calcium,Total 9.6 mg/dL (7.6-11.0); Carbon Dioxide 26.8 mmol/L (21.0-32.0); Chloride 102 mmol/L (98-108); Creatinine, Serum 1.47 mg/dL (0.70-1.20); EST Glomerular Filtration Rate 46 (>60); Estimated Creatinine Clearance 35.87 ml/min (50-250); Glucose 118 mg/dL (70-99); Potassium 4.1 mmol/L (3.3-5.1); Pro- Brain NATRIURETIC PEPTIDE 1963 pg/mL (<=1800); Sodium Level 141 mmol/L (133-145); Troponin T High Sensitivity 28 ng/L (<=22)
[2025-01-16 16:57] LABS: Bacteria 0 SEEN /hpf (None Seen); Mucous, Urine 0 SEEN /hpf (<or=2+); Red Blood Cells-Urine 0 SEEN /hpf (0-5)
[2025-01-16 17:20] LABS: Color, Urine Yellow (Yellow); Glucose, Dipstick Normal (Normal); Ketone-Dipstick Negative (Negative); Leukocyte Esterase-Dipstick 25 /ul (Negative); Nitrite-Dipstick Negative (Negative); Occult Blood-Urine 10 /ul (Negative); Protein-Dipstick 30 mg/dl (Negative); Specific Gravity, Urine 1.015 (1.002-1.030); Urine Bilirubin Dipstick Negative (Negative); Urine Clarity Clear (Clear); Urine Urobilinogen 1 mg/dl (Normal)
[2025-01-16 17:47] LABS: Troponin T High Sens 2 HR 25 ng/L (<=22)
[2025-01-16 17:48] LABS: Differential Indicated SCAN CRITERIA MET
[2025-01-16 17:49] LABS: Differential Comment SCANNED; Platelet Estimate ADEQUATE (ADEQ)
[2025-01-16 19:22] LABS: Squamous Epithelial Cells - UA 0-5 SEEN /hpf (0-5); Triple Phosphate Crystals Ur J0 /hpf (<or=1+); White Blood Cells 0-5 SEEN /hpf (0-5)
== END 2025-01-16 18:31 | disposition home or self-care (01) ==
PROVIDERS: Physician Assistant; Emergency Provider Surgery; PCP Family Medicine Geriatric Medicine; Visit Provider Surgery
DX: I11.0 Hypertensive heart disease with heart failure (principal); I50.22 Chronic systolic (congestive) heart failure; I48.0 Paroxysmal atrial fibrillation; D64.9 Anemia, unspecified; R07.89 Other chest pain; I25.10 Atherosclerotic heart disease of native coronary artery without angina pectoris; R06.00 Dyspnea, unspecified; N28.9 Disorder of kidney and ureter, unspecified; E78.5 Hyperlipidemia, unspecified; I25.5 Ischemic cardiomyopathy; R53.1 Weakness; I25.2 Old myocardial infarction; Z79.01 Long term (current) use of anticoagulants; Z79.02 Long term (current) use of antithrombotics/antiplatelets; Z79.899 Other long term (current) drug therapy; Z95.810 Presence of automatic (implantable) cardiac defibrillator
CPT/HCPCS: 71046; 80048; 81001; 83880; 84484; 85025; 93005; 99285; A4216

== ENCOUNTER 2025-04-08 14:31 | Emergency (ER) | payer MEDICARE, OTHER, SELFPAY ==
[2020-04-02 11:50] VITALS: BMI 26.2
[2025-04-08] VITALS (9 sets, daily range): BP systolic 116–144; BP diastolic 53–80; PULSE 69–87; RESP 16–20; TEMP 36.3–36.9; O2SAT 96–99; BMI 24.7
--- NOTE | 2025-04-08 14:37 | EKG12_ITS ---
Test Reason : CP Blood Pressure : */* mmHG Vent. Rate : 87 BPM Atrial Rate : 87 BPM P-R Int : 174 ms QRS Dur : 166 ms QT Int : 420 ms P-R-T Axes : 37 -24 109 degrees QTcB Int : 505 ms Sinus rhythm with Premature atrial complexes Left bundle branch block Abnormal ECG Confirmed by Michael Murillo [id number]), research editor BITA ROBB ([id number]) on 04/09/2025 10:31:02 AM Referred By: MOIRA/WING Confirmed By: Michael Murillo
[2025-04-08 15:05] LABS: Hematocrit 35.2 % (40-54); Hemoglobin 11.5 g/dL (13.0-16.5); Immature Granulocytes Count 0.020 X10^3/uL (0.0-0.0); Mean Corp Hgb Conc 32.7 g/dL (32-36); Mean Corpuscular Volume 95.1 fL (80-94); Mean Platelet Vol. 13.9 fl (6.2-12.0); NRBC Flagged by Analyzer 0 % (0-5); POSITIVE MORPHOLOGY YES; Platelet Count 173 K/mm3 (150-450); RBC Distribution Width CV 14.3 % (11.6-14.6); RBC Distribution Width SD 49.6 fl (35.1-43.9); Red Blood Count 3.70 M/mm3 (4.6-6.2); White Blood Count 7.5 K/mm3 (4.4-11.0)
--- NOTE | 2025-04-08 15:15 | RAD_ITS ---
PROCEDURE: CHEST 1 VIEW (PORTABLE) 04/08/2025 REASON FOR EXAM: CHEST PAIN TECHNIQUE: Frontal view of the chest. COMPARISON: Prior study dated January 16, 2025. FINDINGS: Hardware: EKG electrodes are seen. A right-sided ICD is seen. Heart: Cardiomegaly. Lungs: Elevation of the right hemidiaphragm. The lungs are clear. Bones: Degenerative changes are identified within the thoracic spine. Other: RAD/Chest 1 View (Portable) IMPRESSION: Cardiomegaly. The lungs are clear. Reading Location: [place] [address]
[2025-04-08 15:22] LABS: Anion Gap 11 (5-15); BUN 21 mg/dL (4-19); BUN/Creat Ratio 16.8 RATIO (10-20); Calcium,Total 9.6 mg/dL (7.6-11.0); Carbon Dioxide 25.4 mmol/L (21.0-32.0); Chloride 103 mmol/L (98-108); Glucose 146 mg/dL (70-99); Potassium 4.4 mmol/L (3.3-5.1); Troponin T High Sensitivity 28 ng/L (<=22)
--- NOTE | 2025-04-08 15:35 | ED.VIS.CHEST ---
HPI History of Present Illness Chief Complaint: Chest Pain Informant: patient Narrative Narrative: Patient is 89-year-old male with extensive past medical history including systolic heart failure, ischemic cardiomyopathy, coronary artery disease, history of ICD and chronic anticoagulation on Xarelto. He is presenting with chest discomfort, lightheadedness and shortness of breath/generalized weakness. Patient states he is not having mild symptoms all summer but is really worsened over the past 4 to 5 days. He states he has episodes where he feels lightheaded and generally weak. He is not sure if he is dehydrated from his Lasix. He starts to feel short of breath and has to breathe through his mouth. He notes that he does get chest discomfort and then intermittently will also have a sharp pain that radiates to his left chest and down his arm. He notes that he has had some mild sinus drainage and a cough for couple days. He denies any nausea or vomiting. Denies any black or blood in his stool or diarrhea. Denies any leg swelling or weight change. States that he is on Plavix. Did not have aspirin today. No other complaints or concerns at this time. [facility] Medical History Monomorphic ventricular tachycardia Elevated troponin Atrial fibrillation [place] (myocardial infarction) Secondary pulmonary arterial hypertension Left bundle branch block (LBBB) Paroxysmal atrial fibrillation Constipation Irregular heart beat Pacemaker BPH (benign prostatic hyperplasia) Wears dentures Wears glasses Cancer Bruising Arthritis GERD (gastroesophageal reflux disease) Shortness of breath on exertion Non-smoker Sinus drainage TIA (transient ischemic attack) Acute blood loss anemia Anemia Hematuria Male hypogonadism History of non-ST elevation myocardial infarction (NSTEMI) (12/27/21) Atherosclerosis of coronary artery of [place]emat[place] heart with angina pectoris Left carotid artery stenosis DDD (degenerative disc disease) Ischemic cardiomyopathy 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 infarction Segmental and somatic dysfunction of thoracic region Segmental and somatic dysfunction of pelvic region Essential (primary) hypertension Hiatal hernia Polycythemia Chronic systolic (congestive) heart failure Nonsustained ventricular tachycardia Carotid artery disease HLD (hyperlipidemia) Home Medications ?Medication ?Instructions ?Recorded ?Last Taken ?Type pantoprazole 40 mg tablet,delayed 40 mg PO DAILY ACID REFLUX 10/29/16 01/16/25 History release clopidogrel 75 mg tablet (Plavix) 75 mg PO DAILY BLOOD THINNER 09/26/22 01/16/25 History rivaroxaban 15 mg tablet (Xarelto) 15 mg PO DAILY blood thinner 10/08/23 01/16/25 History nitroglycerin 0.4 mg sublingual 0.4 mg sublingual Q5-15M PRN chest 10/10/23 Unknown Rx tablet pain 30 days #30 tabs carvedilol 3.125 mg tablet 3.125 mg PO BID blood pressure 01/29/24 01/16/25 Rx #180 tabs melatonin 10 mg tablet 10 mg PO HS PRN sleep 01/29/24 Unknown History furosemide 20 mg tablet 20 mg PO Q OTHER DAY fluid 03/17/25 Unknown History retention sacubitril 24 mg-valsartan 26 mg 1 tab PO BID HEART FAILURE #60 tabs 03/17/25 Unknown Rx tablet (Entresto) Allergy/AdvReac Type Severity Reaction Status Date / Time hydrochlorothiazide Allergy Severe Severe Verified 04/08/25 14:34 itching rash dapagliflozin (From Farxiga) Allergy Unknown Rash, UTI Verified 04/08/25 14:34 hydroxyzine Allergy Unknown Violent Verified 04/08/25 14:34 shaking promethazine (From Phenergan) Allergy Other Verified 04/08/25 14:34 apixaban (From Eliquis) AdvReac Severe All over Verified 04/08/25 14:34 itching and rash ranolazine (From Ranexa) AdvReac Severe Rash Verified 04/08/25 14:34 omeprazole AdvReac Unknown Verified 04/08/25 14:34 Phenothiazines AdvReac Unknown Verified 04/08/25 14:34 Zlzcgpb-[id number]-LpS Reductase AdvReac myalgias Verified 04/08/25 14:34 Inhibitor (Uxgfrjf-Mbj-Ott Reductase Inhibitor) Family History Father , Age 37 from [place] CAD (coronary artery disease) Myocardial infarction Sudden cardiac Mother , age 96 Diabetes Surgical History History of cataract surgery History of hernia repair History of appendectomy History of transurethral resection of prostate (12/16/20) History of intraocular lens implant History of implantable cardiac defibrillator (ICD) (05/17/10) History of coronary artery stent placement (04/19/21) History of left heart catheterization (08/09/21) History of electrophysiologic study (2009) Social History household members: spouse Smoking Status: Never smoker alcohol intake: never substance use type: does not use caffeine: Yes Type: carbonated beverages Number of servings: 1 and coffee Number of servings: 1 what type of physical activity do you participate in: none EXAM Physical Exam Const Vital Signs: 04/08/25 14:32 04/08/25 15:24 04/08/25 15:30 Temperature 97.4 F L Temperature Source Oral Pulse Rate 80 Pulse Rate [Lying] Pulse Rate [Sitting (for 1 minute prior to obtaining)] Pulse Rate [Standing (for 1 minute prior to obtaining)] Respiratory Rate 18 Respiratory Effort Normal Blood Pressure 116/53 L Blood Pressure [Lying] Blood Pressure [Sitting (for 1 minute prior to obtaining)] Blood Pressure [Standing (for 1 minute prior to obtaining)] Blood Pressure Mean 74 Blood Pressure Mean [Lying] Blood Pressure Mean [Sitting (for 1 minute prior to obtaining)] Blood Pressure Mean [Standing (for 1 minute prior to obtaining)] Pulse Ox 99 Oxygen Delivery Method Room Air Room Air 04/08/25 15:31 04/08/25 16:45 04/08/25 17:01 Temperature Temperature Source Pulse Rate 72 74 75 Pulse Rate [Lying] Pulse Rate [Sitting (for 1 minute prior to obtaining)] Pulse Rate [Standing (for 1 minute prior to obtaining)] Respiratory Rate 19 H 20 H 18 Respiratory Effort Blood Pressure 132/64 H 118/70 120/71 Blood Pressure [Lying] Blood Pressure [Sitting (for 1 minute prior to obtaining)] Blood Pressure [Standing (for 1 minute prior to obtaining)] Blood Pressure Mean 86 86 87 Blood Pressure Mean [Lying] Blood Pressure Mean [Sitting (for 1 minute prior to obtaining)] Blood Pressure Mean [Standing (for 1 minute prior to obtaining)] Pulse Ox Oxygen Delivery Method Room Air 04/08/25 18:00 04/08/25 19:31 04/08/25 19:32 Temperature Temperature Source Pulse Rate 72 78 Pulse Rate [Lying] 77 Pulse Rate [Sitting (for 1 minute prior to obtaining)] 82 Pulse Rate [Standing (for 1 minute prior to obtaining)] 87 Respiratory Rate 19 H 16 Respiratory Effort Blood Pressure 121/70 H 119/73 Blood Pressure [Lying] 119/73 Blood Pressure [Sitting (for 1 minute prior to obtaining)] 131/80 H Blood Pressure [Standing (for 1 minute prior to obtaining)] 144/74 H Blood Pressure Mean 87 88 Blood Pressure Mean [Lying] 88 Blood Pressure Mean [Sitting (for 1 minute prior to obtaining)] 97 Blood Pressure Mean [Standing (for 1 minute prior to obtaining)] 97 Pulse Ox Oxygen Delivery Method Room Air Heart Score History: Slightly/Non-Suspicious ECG: Nonspecific Repolarization Age: >/= 65 years Risk Factors: >/= 3 Risk Factors or History of CAD Troponin: </= Normal Limit Score: 5 MDM MDM MDM Narrative Medical decision making narrative: Patient is evaluated for lightheadedness, vague sense of chest discomfort and shortness of breath as well as generalized weakness for the past 4 to 5 days. notes he has had some these intermittent symptoms all summer but they have been more striking for the past few days. He has a significant cardiac history. He does have an ICD. Differential includes ACS, dehydration, PILAR, pneumonia, viral syndrome, arrhythmia, symptomatic anemia, PILAR and electrolyte derangement. Cardiac workup shows stable and minimally elevated high-sensitivity troponin at 28 and then on repeat 25 and 26. Given no active chest pain or acute ischemic EKG changes lower suspicion for ACS. His EKG does show left bundle branch block but there are no acute/dynamic changes or Sgarbossa criteria. His CBC shows a normal white blood cell count lower suspicion for sepsis or severe infection causing his symptoms. He has a mild anemia with a hemoglobin 11.5 but this is at his baseline. His D-dimer is normal at 0.27 which initially was obtained as I had a was concern for possible PE as the cause of his symptoms and patient initially denied being on any anticoagulation however chart review does show that he is in fact on Xarelto. BMP does show mild renal insufficiency with creatinine of 1.24 however this is near his baseline. He is mildly hyperglycemic with glucose of 146 but he has a normal anion gap and I do not think this is high enough to cause his symptoms. Chest x-ray reviewed by myself as well as radiology shows cardiomegaly with no other acute process. His ICD is interrogated and he did not have any acute events over the last 48 hours. Most recently he did have a nonsustained event on April 06 at 1811 that did not require any shocking or apparent overdrive pacing. Patient is given gentle IV fluids in the emergency room. On repeat evaluation he states he is actually feeling better with IV fluids. He is ambulated and has a steady gait. Overall he is orthostatic negative. I did discuss the case with cardiology, Dr. Murillo. He states that if patient is feeling better and is not having symptoms consistent with his prior ACS he can follow-up outpatient. Patient confirms that this is not consistent with his prior ACS and would like to go home. He is given close return precautions. Encouraged to follow-up outpatient with cardiology. Discharged home in stable and improved condition Lab Data Attestation: I reviewed the patient's lab results. Labs: Laboratory Results - last 24 hr 04/08/25 04/08/25 04/08/25 14:55 17:00 18:55 WBC 7.5 RBC 3.70 L Hgb 11.5 L Hct 35.2 L MCV 95.1 H MCH 31.1 MCHC 32.7 RDW Std Deviation 49.6 H RDW Coeff of Dane 14.3 Plt Count 173 MPV 13.9 H Immature Gran % (Auto) 0.300 Neut % (Auto) 76.0 H Lymph % (Auto) 15.1 L [place] % (Auto) 5.7 Eos % (Auto) 2.4 Baso % (Auto) 0.5 Absolute Neuts (auto) 5.7 Absolute Lymphs (auto) 1.13 Nucleated RBC % 0 Differential Comment SCANNED Platelet Estimate ADEQUATE PT 17.6 H INR 1.4 D-Dimer Quant (PE/DVT) 0.27 Sodium 139 Potassium 4.4 Chloride 103 Carbon Dioxide 25.4 Anion Gap 11 BUN 21 H Creatinine 1.24 H Est GFR (MDRD) Non-Af 56 L BUN/Creatinine Ratio 16.8 Glucose 146 H Calcium 9.6 Troponin T High Sens 28 H Troponin T Hi Sens 2 Hr 25 H Troponin T Hi Sens 4Hr 26 H Radiography Diagnostic Testing: Clinical Impression(s) from Imaging Studies Chest X-Ray 04/08/25 15:15 IMPRESSION: Cardiomegaly. The lungs are clear. Reading Location: [place] [id number] Rhythm Strip Rhythm Strip: Sinus Rhythm Rate: 87 Ectopy: None EKG Initial EKG: Attestation: I personally reviewed and interpreted this EKG as follows: Interpretation: Sinus Rhythm Comments: Normal sinus rhythm rate of 87 bpm with PACs Leftward axis Left bundle branch block Nonspecific T wave changes Compared to prior EKG on 01/16/2025, no acute exchange underwriting consultant Discussion w/another healthcare provider: Swimming Teacher (Cardiology) Discharge Plan Triage Chief Complaint: Chest Pain ED Provider: Frida Quintana Dx/Rx/DC Orders Clinical Impression: Lightheadedness, History of ischemic cardiomyopathy, 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, History of implantable cardiac defibrillator (ICD), Left bundle branch block (LBBB) Instructions: ED Chest Pain, Uncertain Cause, ED Dizziness, Uncertain Cause Prescriptions: No Action melatonin 10 mg tablet 10 mg PO HS PRN (Reason: sleep) carvedilol 3.125 mg tablet 3.125 mg PO BID Qty: 180 3RF pantoprazole 40 MG tablet 40 mg PO DAILY clopidogrel [Plavix] 75 mg tablet 75 mg PO DAILY Xarelto 15 mg tablet 15 mg PO DAILY Patient Comments: pt took 1 tab, and then went back to 20mg nitroglycerin 0.4 mg tablet, sublingual 0.4 mg sublingual Q5-15M PRN (Reason: chest pain) 30 Days Qty: 30 3RF Entresto 24-26 mg tablet 1 tab PO BID Qty: 60 11RF furosemide 20 mg tablet 20 mg PO Q OTHER DAY Primary Care Provider: Jacques Pena Chi Referrals: Jacques Pena Chi, MD [Primary Care Provider] - Activity Restrictions/Additional Instructions: Your workup today was largely reassuring. The exact cause of your symptoms is not clear. Possibly had some mild dehydration. If you have worsening symptoms please return the emergency room. Follow-up closely outpatient with your primary care doctor and cardiology. Call the cardiology office tomorrow to arrange for outpatient follow-up within the next week Print Language: Amharic Disposition Disposition: Home, Self Care
[2025-04-08] MEDS: 0.9% Normal Saline (1000mL) 1,000 ML 150 ML IV (15:36)
[2025-04-08 16:11] LABS: Prothrombin Time (Protime)PT. 17.6 SECONDS (11.7-14.9)
[2025-04-08 16:48] LABS: D-Dimer Quantitative (DVT/PE) 0.27 FEU/ug/m (0.27-0.49)
[2025-04-08 17:49] LABS: Troponin T High Sens 2 HR 25 ng/L (<=22)
[2025-04-08 17:51] LABS: Differential Indicated SCAN CRITERIA MET
[2025-04-08 17:53] LABS: Differential Comment SCANNED
[2025-04-08 19:55] LABS: Troponin T High Sens 4 HR 26 ng/L (<=22)
== END 2025-04-08 20:47 | disposition home or self-care (01) ==
PROVIDERS: Emergency Provider Emergency Medicine; PCP Family Medicine Geriatric Medicine; Visit Provider Emergency Medicine
DX: R42 Dizziness and giddiness (principal); I11.0 Hypertensive heart disease with heart failure; I50.22 Chronic systolic (congestive) heart failure; I48.0 Paroxysmal atrial fibrillation; R07.9 Chest pain, unspecified; I25.5 Ischemic cardiomyopathy; I44.7 Left bundle-branch block, unspecified; R73.9 Hyperglycemia, unspecified; D64.9 Anemia, unspecified; E78.5 Hyperlipidemia, unspecified; I25.10 Atherosclerotic heart disease of native coronary artery without angina pectoris; N28.9 Disorder of kidney and ureter, unspecified; Z79.01 Long term (current) use of anticoagulants; Z95.810 Presence of automatic (implantable) cardiac defibrillator; K21.9 Gastro-esophageal reflux disease without esophagitis
CPT/HCPCS: 71045; 80048; 84484; 85025; 85379; 85610; 93005; 93288; 93289; 96360; 96361; 99285; A4216

== ENCOUNTER → 2025-05-06 | Outpatient (CLI) | payer MEDICARE, OTHER, SELFPAY ==
[2020-04-02 11:50] VITALS: BMI 26.2
[2025-05-06 10:36] LABS: Hematocrit 33.6 % (40-54); Hemoglobin 11.1 g/dL (13.0-16.5); Immature Granulocytes Count 0.020 X10^3/uL (0.0-0.0); Mean Corp Hgb Conc 33.0 g/dL (32-36); Mean Corpuscular Volume 94.4 fL (80-94); Mean Platelet Vol. 13.6 fl (6.2-12.0); NRBC Flagged by Analyzer 0 % (0-5); Platelet Count 171 K/mm3 (150-450); RBC Distribution Width CV 14.1 % (11.6-14.6); RBC Distribution Width SD 48.5 fl (35.1-43.9); Red Blood Count 3.56 M/mm3 (4.6-6.2); White Blood Count 7.0 K/mm3 (4.4-11.0)
[2025-05-06 11:44] LABS: Vitamin D,25 Hydroxy 25.5 ng/mL (30-100)
[2025-05-06 11:45] LABS: AST(SGOT) 19 U/L (<=37); Alanine Aminotransfer ALT/SGPT < 5 U/L (<=46); Albumin, Serum 4.4 g/dL (3.4-4.8); Alkaline Phosphatase 62 U/L (40-129); Anion Gap 12 (5-15); BUN 23 mg/dL (4-19); BUN/Creat Ratio 21.0 RATIO (10-20); Calcium,Total 9.5 mg/dL (7.6-11.0); Carbon Dioxide 25.2 mmol/L (21.0-32.0); Chloride 106 mmol/L (98-108); Globulin 2.7 g/dL (2.2-4.2); Glucose 158 mg/dL (70-99); Potassium 4.1 mmol/L (3.3-5.1)
== END | disposition home or self-care (01) ==
LOC: POLAB3 10:21
PROVIDERS: PCP Family Medicine Geriatric Medicine; Visit Provider Family Medicine Geriatric Medicine
DX: I10 Essential (primary) hypertension (principal); E03.9 Hypothyroidism, unspecified; E55.9 Vitamin D deficiency, unspecified
CPT/HCPCS: 36415; 80053; 82306; 84443; 85025

== ENCOUNTER 2025-07-09 16:23 | Emergency (ER) | payer MEDICARE, OTHER, SELFPAY ==
[2020-04-02 11:50] VITALS: BMI 26.2
[2025-07-09 16:25] VITALS: BP 147/76; PULSE 96; RESP 16; TEMP 37.2; O2SAT 99
--- NOTE | 2025-07-09 16:41 | RAD_ITS ---
PROCEDURE: CHEST PA AND LATERAL 07/09/2025 REASON FOR EXAM: COUGH TECHNIQUE: Procedure Code: RADCXR Modality: DX Procedure: CHEST PA AND LATERAL COMPARISON: 04/08/2025 FINDINGS: Right chest wall dual lead ICD in stable positioning. Cardiomegaly. Coronary artery stents. Aortic atherosclerotic calcifications. No appreciable focal consolidation, pneumothorax or sizable pleural effusion. Mildly elevated right hemidiaphragm with interposition of bowel loops between the liver and right hemidiaphragm noted. Minimal degenerative changes of the spine. RAD/Chest PA and Lateral IMPRESSION: No appreciable focal consolidation or pleural effusion. Reading Location: [id number]
--- NOTE | 2025-07-09 16:45 | EDS_ITS ---
HPI History of Present Illness Chief Complaint: Cough Informant: patient Onset/Context/Timing Onset: Yesterday Context: Gradual Onset Timing: Continuous Quality: Aching Location: Back Worsened by: Nothing Relieved by: Nothing Narrative Narrative: Patient presents with a cough that began yesterday. Patient states he started with some rhinorrhea and a sore throat. Patient states that he is coughing up some sputum but does not know what color it is. Patient states he just spits it out. Patient states it has been constant. Patient admits to some pain in his chest. Patient describes it as mild. Patient states it is dull. Patient states he had a low-grade fever of 99 at home. Patient admits to a mild headache. Patient admits to some generalized weakness. Patient also admits to some general myalgias. Patient also admits to decreased appetite. Patient st ates he has taken Tylenol and Mucinex at home with no improvement. [facility] Medical History Monomorphic ventricular tachycardia Elevated troponin Atrial fibrillation [place] (myocardial infarction) Secondary pulmonary arterial hypertension Left bundle branch block (LBBB) Paroxysmal atrial fibrillation Constipation Irregular heart beat Pacemaker BPH (benign prostatic hyperplasia) Wears dentures Wears glasses Cancer Bruising Arthritis GERD (gastroesophageal reflux disease) Shortness of breath on exertion Non-smoker Sinus drainage TIA (transient ischemic attack) Acute blood loss anemia Anemia Hematuria Male hypogonadism History of non-ST elevation myocardial infarction (NSTEMI) (12/27/21) Atherosclerosis of coronary artery of [place] heart with angina pectoris Left carotid artery stenosis DDD (degenerative disc disease) Ischemic cardiomyopathy 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 infarction Segmental and somatic dysfunction of thoracic region Segmental and somatic dysfunction of pelvic region Essential (primary) hypertension Hiatal hernia Polycythemia Chronic systolic (congestive) heart failure Nonsustained ventricular tachycardia Carotid artery disease HLD (hyperlipidemia) Home Medications ?Medication ?Instructions ?Recorded ?Last Taken ?Type pantoprazole 40 mg tablet,delayed 40 mg PO DAILY ACID REFLUX 10/29/16 01/16/25 History release rivaroxaban 15 mg tablet (Xarelto) 15 mg PO DAILY bloo d thinner 10/08/23 01/16/25 History nitroglycerin 0.4 mg sublingual 0.4 mg sublingual Q5-1 5M PRN chest 10/10/23 Unknown Rx tablet pain 30 days #30 tabs carvedilol 3.125 mg tablet 3.125 mg PO BID blood press ure 01/29/24 01/16/25 Rx #180 tabs melatonin 10 mg tablet 10 mg PO HS PRN sleep Unknown History clopidogrel 75 mg tablet (Plavix) 75 mg PO DAILY BLOOD THINNER #90 04/17/25 Unknown Rx tabs sacubitril 24 mg-valsartan 26 mg 1 tab PO QDAY HEART F AILURE #60 04/17/25 Unknown Rx tablet (Entresto) tabs furosemide 20 mg tablet 20 mg PO .every 3-4 days flu id 06/13/25 Unknown History retention Allergy/AdvReac Type Severity Reaction Status Date / Time hydrochlorothiazide Allergy Severe Severe Verified 07/09/25 16:24 itching rash dapagliflozin (From Farxiga) Allergy Unknown Rash, UTI Verified 07/09/25 16:24 hydroxyzine Allergy Unknown Violent Verified 07/09/25 16:24 shaking promethazine (From Phenergan) Allergy Other Verified 07/09/25 16:24 apixaban (From Eliquis) AdvReac Severe All over Verified 07/09/25 16:24 itching and rash ranolazine (From Ranexa) AdvReac Severe Rash Verified 07/09/25 16:24 omeprazole AdvReac Unknown Verified 07/09/25 16:24 Phenothiazines AdvReac Unknown Verified 07/09/25 16:24 [id number]-[id number]-PdW Reductase AdvReac myalgias Verified 07/09/25 16:24 Inhibitor (Xilkfyo-Uvn-Fwz Reductase Inhibitor) Family History Father , Age 37 from [place] CAD (coronary artery disease) Myocardial infarction Sudden cardiac Mother , age 96 Diabetes Surgical History History of cataract surgery History of hernia repair History of appendectomy History of transurethral resection of prostate (12/16/20) History of intraocular lens implant History of implantable cardiac defibrillator (ICD) (05/17/10) History of coronary artery stent placement (04/19/21) History of left heart catheterization (08/09/21) History of electrophysiologic study (2009) Social History household members: spouse Smoking Status: Never smoker alcohol intake: never substance use type: does not use caffeine: Yes Type: carbonated beverages Number of servings: 1 and coffee Number of servings: 1 what type of physical activity do you participate in: none ROS ROS ED Constitutional Constitutional ED: Reports fever(s) and subjective; Denies chills Eyes Eyes: Denies blurry vision or change in vision ENT ENT ED: Reports rhinorrhea and sore throat Cardiovascular Cardiovascular: Reports chest pain; Denies palpitations Respiratory/Chest Respiratory/Chest: Reports cough; Denies dyspnea Gastrointestinal Gastrointestinal: Denies nausea or vomiting Genitourinary Genitourinary ED: Denies dysuria or hematuria Musculoskeletal Musculoskeletal: Reports back pain; Denies neck pain Integumentary Denies abscess or rash Neurologic Neurologic: Reports headache(s) and weakness Allergic/Immunologic Allergic/Immunologic ED: Denies mouth swelling or urticaria EXAM Physical Exam Const Vital Signs: 07/09/25 16:25 07/09/25 17:04 07/09/25 17:54 Temperature 98.9 F Temperature Source Oral Pulse Rate 96 85 Respiratory Rate 16 16 Respiratory Effort Normal Non-Labored Respiratory Depth Normal Respiratory Pattern Normal Normal Blood Pressure 147/76 H Blood Pressure Mean 99 Pulse Ox 99 Oxygen Delivery Method Room Air 07/09/25 18:24 07/09/25 19:58 Temperature Temperature Source Pulse Rate 84 85 Respiratory Rate 16 17 Respiratory Effort Respiratory Depth Respiratory Pattern Blood Pressure 128/82 H 130/76 H Blood Pressure Mean 97 94 Pulse Ox 98 94 Oxygen Delivery Method Room Air Room Air Positive well nourished and well developed General Appearance ED: well developed and NAD HEENT Reports moist mucous membranes Neck supple and no JVD Resp normal respiratory effort Auscultation: rhonchi right lower Cardio regular rate and regular rhythm GI non-tender and non-distended Palpation: soft Neuro oriented x3, CN's II-XII intact bilaterally and no sensory deficits noted Sensorium / Orientation: alert Motor Exam: strength 5/5 throughout Psych mental status grossly normal MDM MDM MDM Narrative Medical decision making narrative: Differential diagnose includes pneumonia, bronchitis, electrolyte abnormality, d ehydration, and a viral illness. Chest x-ray will be obtained to assess for pneumonia and bronchitis. CBC will be obtained to assess for leukocytosis and anemia. Basic metabolic profile will be obtained to assess for electrolyte abnormality and renal function. COVID-19, influenza, and RSV PCR will be obtained to assess for viral illness. History & Record Review Additional record(s) reviewed:: Prior labs Lab Data Attestation: I reviewed the patient's lab results. Lab results narrative: CBC was reviewed. There is a mild leukocytosis of 14.5. There is a mild anemia with a hemoglobin of 10.4 hematocrit 32.0. Platelets were normal at 150. Basic metabolic profile was reviewed. Creatinine was slightly elevated at 1.24. This is consistent with previous results. COVID-19 PCR was reviewed and was negative. Influenza PCR was reviewed and was negative for influenza A and influenza B. RSV PCR was reviewed and was negative. Labs: Laboratory Results - last 24 hr 07/09/25 17:04 WBC 14.5 H RBC 3.31 L Hgb 10.4 L Hct 32.0 L MCV 96.7 H MCH 31.4 MCHC 32.5 RDW Std Deviation 50.7 H RDW Coeff of Dane 14.3 Plt Count 150 MPV 13.7 H Immature Gran % (Auto) 0.300 Neut % (Auto) 86.1 H Lymph % (Auto) 5.4 L [place] % (Auto) 7.4 Eos % (Auto) 0.5 Baso % (Auto) 0.3 Absolute Neuts (auto) 12.5 H Absolute Lymphs (auto) 0.79 L Nucleated RBC % 0 Sodium 138 Potassium 4.1 Chloride 102 Carbon Dioxide 23.6 Anion Gap 13 BUN 17 Creatinine 1.24 H Est GFR (MDRD) Non-Af 56 L BUN/Creatinine Ratio 13.7 Glucose 122 H Calcium 9.2 Radiography Chest X-Ray - ED: 2 View, Read by ED Physician, Read by Radiologist and No Acute Disease Diagnostic Testing: Clinical Impression(s) from Imaging Studies Chest X-Ray 07/09/25 16:41 IMPRESSION: No appreciable focal consolidation or pleural effusion. Reading Location: [facility] PA and lateral chest x-ray was obtained. There are 2 views. On my independent interpretation, lung allen are clear. There is normal cardiac silhouette. Bony thorax is normal. There is no acute process noted. Radiologist also interpreted the x-ray and agrees. 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 Patient had minimal improvement with the DuoNeb. Patient was given IV fluids. Patient was feeling somewhat better on reevaluation. Patient was advised of his findings. Patient was advised that this is most likely a viral upper respiratory infection. Patient was instructed to drink plenty of fluids. Patient was instructed to take Tylenol or ibuprofen as needed for any pain or fever. Patient was instructed to follow-up with his primary care physician in 5 to 7 days. Patient understood and was agreeable with the plan. All questions were answered. Discharge Plan Triage Chief Complaint: Cough ED Provider: Jose M Alicea Dx/Rx/DC Orders Clinical Impression: Viral upper respiratory tract infection, Cough, half-way current use of anticoagulant Instructions: ED URI, Viral, No Abx (Adult) Prescriptions: No Action melatonin 10 mg tablet 10 mg PO HS PRN (Reason: sleep) carvedilol 3.125 mg tablet 3.125 mg PO BID Qty: 180 3RF clopidogrel [Plavix] 75 mg tablet 75 mg PO DAILY Qty: 90 3RF Entresto 24-26 mg tablet 1 tab PO QDAY Qty: 60 11RF pantoprazole 40 MG tablet 40 mg PO DAILY Xarelto 15 mg tablet 15 mg PO DAILY Patient Comments: pt took 1 tab, and then went back to 20mg nitroglycerin 0.4 mg tablet, sublingual 0.4 mg sublingual Q5-15M PRN (Reason: chest pain) 30 Days Qty: 30 3RF furosemide 20 mg tablet 20 mg PO .every 3-4 days Patient Comments: if gains a pound or two it is taken Primary Care Provider: Jacques Pena Chi Referrals: Jacques Pena Chi, MD [Primary Care Provider, Geriatrics] - 5-7 Days Print Language: Slovenian Disposition Disposition: Home, Self Care
[2025-07-09] MEDS: 0.9% Normal Saline (500mL Bag) 500 ML 1000 ML IV (17:02)
[2025-07-09 17:04] VITALS: PULSE 85; RESP 16
[2025-07-09 17:51] LABS: Anion Gap 13 (5-15); BUN 17 mg/dL (4-19); BUN/Creat Ratio 13.7 RATIO (10-20); Calcium,Total 9.2 mg/dL (7.6-11.0); Carbon Dioxide 23.6 mmol/L (21.0-32.0); Chloride 102 mmol/L (98-108); Glucose 122 mg/dL (70-99); Potassium 4.1 mmol/L (3.3-5.1)
[2025-07-09 18:03] LABS: Hematocrit 32.0 % (40-54); Hemoglobin 10.4 g/dL (13.0-16.5); Immature Granulocytes Count 0.050 X10^3/uL (0.0-0.0); Mean Corp Hgb Conc 32.5 g/dL (32-36); Mean Corpuscular Volume 96.7 fL (80-94); Mean Platelet Vol. 13.7 fl (6.2-12.0); NRBC Flagged by Analyzer 0 % (0-5); Platelet Count 150 K/mm3 (150-450); RBC Distribution Width CV 14.3 % (11.6-14.6); RBC Distribution Width SD 50.7 fl (35.1-43.9); Red Blood Count 3.31 M/mm3 (4.6-6.2); White Blood Count 14.5 K/mm3 (4.4-11.0)
[2025-07-09 18:24] VITALS: BP 128/82; PULSE 84; RESP 16; O2SAT 98
[2025-07-09 19:58] VITALS: BP 130/76; PULSE 85; RESP 17; O2SAT 94
[2025-07-09 20:14] VITALS: BP 130/76; PULSE 85; RESP 17; TEMP 37.2; O2SAT 94
== END 2025-07-09 20:27 | disposition home or self-care (01) ==
PROVIDERS: Emergency Provider Emergency Medicine; PCP Family Medicine Geriatric Medicine; Visit Provider Emergency Medicine
DX: J06.9 Acute upper respiratory infection, unspecified (principal); I11.0 Hypertensive heart disease with heart failure; I50.22 Chronic systolic (congestive) heart failure; I48.0 Paroxysmal atrial fibrillation; I47.20 Ventricular tachycardia, unspecified; D64.9 Anemia, unspecified; I25.2 Old myocardial infarction; K21.9 Gastro-esophageal reflux disease without esophagitis; I25.10 Atherosclerotic heart disease of native coronary artery without angina pectoris; I25.5 Ischemic cardiomyopathy; E78.5 Hyperlipidemia, unspecified; Z95.5 Presence of coronary angioplasty implant and graft; Z79.01 Long term (current) use of anticoagulants; Z86.73 Personal history of transient ischemic attack (TIA), and cerebral infarction without residual deficits; Z79.02 Long term (current) use of antithrombotics/antiplatelets; Z79.899 Other long term (current) drug therapy; Z95.810 Presence of automatic (implantable) cardiac defibrillator
CPT/HCPCS: 71046; 80048; 85025; 87631; 94640; 96360; 99283; A4216

== ENCOUNTER → 2025-07-14 | Outpatient (CLI) | payer MEDICARE, OTHER, SELFPAY ==
[2020-04-02 11:50] VITALS: BMI 26.2
--- NOTE | 2025-07-14 15:50 | RAD_ITS ---
PROCEDURE: CHEST PA AND LATERAL 07/14/2025 REASON FOR EXAM: FEVER TECHNIQUE: Procedure Code: RADCXR Modality: DX Procedure: CHEST PA AND LATERAL COMPARISON: Chest x-ray dated 07/09/2025 FINDINGS: Hardware: Cardiac pacemaker device is identified in the left pectoral region with 2 intact leads in satisfactory position. Heart: Coronary artery stents are noted. Arteriosclerotic vascular disease of the aorta is noted. Heart size is within normal limits. Mediastinum: Unremarkable Lungs: There is elevation of the right hemidiaphragm which may be due to phrenic nerve paralysis or eventration. This is a stable finding. There is a loop of colon under the right hemidiaphragms and superimposed between the liver. Subtle prominent interstitial markings are noted in the lungs. There are no pneumothoraces or pleural effusions. No definitive pneumonic infiltrates are seen. If the patient's symptoms continue or worsen, follow-up imaging is recommended. Bones: Bony demineralization of the thorax is noted. Spondylosis of the thoracic spine is noted. Upper abdomen: A nonspecific, nonobstructive bowel gas pattern is seen below the level of the hemidiaphragms. RAD/Chest PA and Lateral IMPRESSION: No definitive pneumonic infiltrates are seen. If the patient's symptoms continu e or worsen, follow-up imaging is recommended. Reading Location: [id number]
== END | disposition home or self-care (01) ==
PROVIDERS: PCP Family Medicine Geriatric Medicine; Visit Provider Family Medicine Geriatric Medicine
DX: J34.89 Other specified disorders of nose and nasal sinuses (principal); R50.9 Fever, unspecified
CPT/HCPCS: 71046; 87631